=== PATIENT | female | born 1935 | race Caucasian/White ===

== ENCOUNTER 2017-04-19 15:59 | Inpatient (IN) | payer OTHER ==
[~2017-04-19] VITALS: Ht 152.4 cm; Wt 52.1 kg
[~2017-04-19 15:59] MED LIST: AMLO-110 PO; ASPI81TA25 PO; CHOL1000 PO; CLON0.1D5 TD; ESCI1TAB9 PO; FLUT50SP14 NAE; LEVO25TA PO; LORA10TA5 PO; LORA1TAB13 PO; MULT-411 PO; PANT1TAB48 PO
[2017-04-19] MEDS ORDERED: ONDANSETRON INJ 2 MG/ML 2 ML VIAL IV STA (16:28)
[2017-04-19] MEDS ORDERED: SODIUM CHLORIDE 0.9% 1000ML 500 ML IV STA (16:28)
[2017-04-19] MEDS ORDERED: SODIUM CHLORIDE 0.9% 1000ML 1,000 ML IV STA (16:28)
[2017-04-19] MEDS ORDERED: MoRPHine SULFATE 4 MG/ML 1 ML CARP\\VIAL IV PRN (16:30)
[2017-04-19 16:39] LABS: BASO % 0.4 %; BASO ABS # 0.04 K/uL (0-0.2); COMPLETE YES; EOS % 0.5 %; HEMATOCRIT 43.1 % (37-47); IG% 0.2 %; LYMPH ABS # 1.51 K/uL (1.2-3.4); MEAN CELL VOLUME 94.1 fL (80-100); MEAN CORPUSCULAR HEMOGLOBIN 33.2 pg (25-34); MEAN CORPUSCULAR HGB CONC 35.3 g/dl (32-36); MEAN PLATELET VOLUME 9.1 fL (7.4-10.4); MONO % 7.4 %; NEUT % 75.5 %; PLATELET COUNT 255 K/uL (130-400); RED BLOOD COUNT 4.58 M/uL (4.2-5.4); WHITE BLOOD COUNT 9.43 K/uL (4.8-10.8)
[2017-04-19] MEDS ORDERED: ONDA4TAB46 PO (16:47)
[2017-04-19] MEDS ORDERED: ATV/1 PO (16:47)
[2017-04-19] MEDS ORDERED: CHOL20007 PO (16:47)
[2017-04-19] MEDS ORDERED: POTA99TA PO (16:47)
[2017-04-19] MEDS ORDERED: NITR-5 PO (16:47)
[2017-04-19] MEDS ORDERED: ASPI81TA28 PO (16:47)
[2017-04-19] MEDS ORDERED: MULT-1016 PO (16:47)
[2017-04-19] MEDS ORDERED: LACT1CAP6 PO (16:47)
[2017-04-19] MEDS ORDERED: FLUT0.15 NAE (16:47)
[2017-04-19] MEDS ORDERED: DIPH1TAB PO (16:47)
[2017-04-19] MEDS ORDERED: MoRPHine SULFATE 2 MG/ML CARP ONE (16:48)
--- NOTE | 2017-04-19 16:51 | DIAGNOSTIC IMAGING REPORT ---
CHEST ONE VIEW PORTABLE CLINICAL HISTORY: Abdominal pain COMPARISON STUDY: 08/26/2013 FINDINGS: The cardiac and mediastinal contours remain stable. There is no failure. There is no focal pulmonary consolidation. There are multiple bilateral pulmonary nodules, relatively similar to the preceding study.[ No pleural effusions are visualized. There is no free intraperitoneal air. IMPRESSION: 1. Multiple bilateral pulmonary nodules, relatively similar to the preceding study 2. No evidence of acute parenchymal consolidation 3. No evidence of free intraperitoneal air Electronically signed by: Elder Moctezuma M.D. 04/19/2017 4:50 PM Dictated Date/Time: 04/19/2017 4:48 PM
--- NOTE | 2017-04-19 16:59 | EMERGENCY ROOM VISIT NOTE ---
History Report prepared by Heriberto: Chelsi Ocampo Under the Supervision of: Dr. Deepak Abdul M.D. First contact with patient: 16:19 Chief Complaint: ABDOMINAL PAIN Stated Complaint: SICK STOMACH,BACK PAIN,THROWING UP History of Present Illness The patient is a 82 year old female who presents to the Emergency Room with complaints of persistent nausea starting about 2 weeks ago. She also reports vomiting. She was evaluated at [facility] about a week ago. 6 days ago, she was diagnosed with a kidney infection based on urinalysis. She denies any history of frequent kidney infections or kidney failure. She has a history of frequent urinary tract infections. She was initially placed on Cipro but was switched over to Macrobid due to persistent nausea. As per daughter, the patient has been losing weight over the past 2 weeks. The patient has a colostomy bag in place for a history of irritable bowel syndrome and bowel incontinence. She has been having mucous from her rectum. She also complains of lower back pain occurring since a fall about 2-3 weeks ago. She denies fevers, chills, abdominal pain, abdominal distention, urinary symptoms, or any other complaints. Source of History: patient Onset: about 2 weeks ago Position: other (global) Quality: other (nausea) Timing: other (persistent) Associated Symptoms: + vomiting, + back pain, No fevers, No chills, No abdominal pain, No urinary symptoms Review of Systems See HPI for pertinent positives & negatives. A total of 10 systems reviewed and were otherwise negative. Past Medical & Surgical Medical Problems: (1) Anorexia (2) Anxiety (3) Depression (4) GERD (gastroesophageal reflux disease) (5) HTN (hypertension) (6) Hypothyroid (7) Intractable nausea and vomiting (8) Pulmonary hypertension Family History Depression Hypertension Social History Smoking Status: Never Smoker Alcohol Use: none Drug Use: none Marital Status: single Housing Status: lives with family Occupation Status: retired Current/Historical Medications Scheduled Amlodipine (Norvasc), 5 MG PO DAILY Aspirin (Aspirin Ec), 81 MG PO QAM Cholecalciferol (Vitamin D3), 2,000 UNITS PO QAM Diphenhydramine Hcl (Benadryl Allergy), 25 MG PO HS Fluticasone Propionate (Nasal) (Flonase Allergy Relief), 1 SPRAY SHAMEKA BID Lactobacillus (Probiotic), 1 CAP PO QAM Levothyroxine Sodium (Synthroid), 25 MCG PO DAILY Lorazepam (Ativan), 1 MG PO TID Multiple Vitamins W/ Minerals (Multivitamin Women 50+), 1 TAB PO QAM Nitrofurantoin Monohyd Macrocr (Macrobid), 100 MG PO Q12 Potassium (Potassium), 99 MG PO QAM Scheduled PRN Ondansetron Hcl (Zofran), Unknown Dose PO DIRECTED PRN for Nausea Allergies Coded Allergies: Verapamil (Verified Allergy, Severe, "THINGS STARTED TO SHUT DOWN-HEART, B /P TILL GOT TO ER"., 04/19/17) Aspirin (Verified Adverse Reaction, Unknown, GI UPSET, TAKES BABY ASA WITHOUT PROB, 04/19/17) Physical Exam Vital Signs Date Time Temp Pulse Resp B/P (MAP) Pulse Ox O2 Delivery O2 Flow Rate FiO2 04/19/17 19:04 155/102 04/19/17 18:39 124 13 04/19/17 18:34 124 24 04/19/17 18:06 83 16 174/88 97 Room Air 04/19/17 18:04 84 23 99 04/19/17 18:01 174/88 04/19/17 17:56 170/87 04/19/17 17:05 81 04/19/17 17:04 81 17 04/19/17 16:59 86 13 04/19/17 16:29 88 15 04/19/17 16:08 37.1 98 20 159/103 97 Room Air Physical Exam GENERAL: Patient is in no acute distress. HEENT: No acute trauma, normocephalic atraumatic, mucous membranes moist, no nasal congestion, no scleral icterus. NECK: No stridor, no adenopathy, no meningismus, trachea is midline. LUNGS: Clear to auscultation bilaterally, no wheeze, no rhonchi, breath sounds equal. HEART: Without murmurs gallops or rubs, regular rate and rhythm. ABDOMEN: Soft, nontender, bowel sounds positive, no hernias, no peritonitis. Colostomy present. BACK: No focal lumbar tenderness, no flank discomfort with percussion. EXTREMITIES: No cyanosis or edema, full range of motion of all the joints without pain or difficulty, no signs for acute trauma. NEUROLOGIC: Oriented x 3, no acute motor or sensory deficits, no focal weakness. SKIN: No rash, no jaundice, no diaphoresis. Medical Decision & Procedures ER Provider Diagnostic Interpretation: X-ray results as stated below per interpretation by me and the radiologist: CHEST ONE VIEW PORTABLE CLINICAL HISTORY: Abdominal pain COMPARISON STUDY: 08/26/2013 FINDINGS: The cardiac and mediastinal contours remain stable. There is no failure. There is no focal pulmonary consolidation. There are multiple bilateral pulmonary nodules, relatively similar to the preceding study.[ No pleural effusions are visualized. There is no free intraperitoneal air. IMPRESSION: 1. Multiple bilateral pulmonary nodules, relatively similar to the preceding study 2. No evidence of acute parenchymal consolidation 3. No evidence of free intraperitoneal air Electronically signed by: Elder Moctezuma M.D. 04/19/2017 4:50 PM Dictated Date/Time: 04/19/2017 4:[address] results as stated below per my review and radiologist interpretation: CT ABD/PELVIS IV CONTRAST ONLY CLINICAL HISTORY: Abdominal pain, nausea, vomiting. COMPARISON STUDY: Chest CT dated 08/26/2013 TECHNIQUE: Following the IV administration of 94 mL of Optiray-320, CT scan of the abdomen and pelvis was performed from the lung bases to the proximal femurs. Images are reviewed in the axial, sagittal, and coronal planes. IV contrast was administered without complication. CT DOSE: 244.79 mGy.cm FINDINGS: Lower chest: Images the lung bases reveal multiple bilateral pulmonary nodules. These were present on the prior 2012 study. Liver: There is mild central hepatic ductal dilatation. There is mild dilatation the common bile duct which measures 8 mm. The mild ductal dilatation was present on the prior chest CT for the August 2013 Gallbladder: Surgically absent Spleen: Normal in size and attenuation. Pancreas: Unremarkable. Adrenal glands: Unremarkable. Kidneys: There is symmetric renal cortical enhancement. The kidneys are normal in size without hydronephrosis. Bowel: There is a hiatal hernia. There is a left lower quadrant colostomy. There are no transition zones indicate bowel obstruction. By history the appendix is surgically absent. The patient appears be status post a partial left colectomy with a blind-ending sigmoid colon. The distal ileal loops appears somewhat matted. Peritoneum: There is no intraperitoneal free air or abdominal ascites. Vasculature: The abdominal aorta is normal in course and caliber. Adenopathy: None. Pelvic viscera: The uterus appears surgically absent. There is a droplet of air within the bladder, possibly iatrogenic Skeletal structures: No destructive osseous lesions are seen. IMPRESSION: 1. Multiple lower lobe pulmonary nodules, findings similar to a prior 2013 study 2. Surgically absent gallbladder. Mild intra and extrahepatic biliary ductal dilatation. This may be related to a prior cholecystectomy. 3. No evidence of bowel obstruction. No evidence of free air 4. Left lower quadrant colostomy 5. Somewhat matted bowel loops within the ileocecal region 6. Droplet of air within the bladder, possibly iatrogenic 7. Hiatal hernia Electronically signed by: Elder Moctezuma M.D. 04/19/2017 5:49 PM Dictated Date/Time: 04/19/2017 5:40 PM Laboratory Results 04/19/17 16:25 Red Blood Count 4.58, Mean Corpuscular Volume 94.1, Mean Corpuscular Hemoglobin 33.2, Mean Corpuscular Hemoglobin Concent 35.3, Mean Platelet Volume 9.1, Neutrophils (%) (Auto) 75.5, Lymphocytes (%) (Auto) 16.0, Monocytes (%) (Auto) 7.4, Eosinophils (%) (Auto) 0.5, Basophils (%) (Auto) 0.4, Neutrophils # (Auto) 7.11, Lymphocytes # (Auto) 1.51, Monocytes # (Auto) 0.70, Eosinophils # (Auto) 0.05, Basophils # (Auto) 0.04 04/19/17 16:25 Test 04/19/17 16:25 04/19/17 17:25 04/19/17 19:04 White Blood Count 9.43 K/uL (4.8-10.8) Red Blood Count 4.58 M/uL (4.2-5.4) Hemoglobin 15.2 g/dL (12.0-16.0) Hematocrit 43.1 % (37-47) Mean Corpuscular Volume 94.1 fL (80-100) Mean Corpuscular Hemoglobin 33.2 pg (25-34) Mean Corpuscular Hemoglobin Concent 35.3 g/dl (32-36) Platelet Count 255 K/uL (130-400) Mean Platelet Volume 9.1 fL (7.4-10.4) Neutrophils (%) (Auto) 75.5 % Lymphocytes (%) (Auto) 16.0 % Monocytes (%) (Auto) 7.4 % Eosinophils (%) (Auto) 0.5 % Basophils (%) (Auto) 0.4 % Neutrophils # (Auto) 7.11 K/uL (1.4-6.5) Lymphocytes # (Auto) 1.51 K/uL (1.2-3.4) Monocytes # (Auto) 0.70 K/uL (0.11-0.59) Eosinophils # (Auto) 0.05 K/uL (0-0.5) Basophils # (Auto) 0.04 K/uL (0-0.2) RDW Standard Deviation 42.6 fL (36.4-46.3) RDW Coefficient of Variation 12.5 % (11.5-14.5) Immature Granulocyte % (Auto) 0.2 % Immature Granulocyte # (Auto) 0.02 K/uL (0.00-0.02) Anion Gap 10.0 mmol/L (3-11) Est Creatinine Clear Calc Drug Dose 33.6 ml/min Estimated GFR () 64.7 Estimated GFR (Non- 55.9 BUN/Creatinine Ratio 7.7 (10-20) Calcium Level 9.4 mg/dl (8.5-10.1) Total Bilirubin 0.4 mg/dl (0.2-1) Aspartate Amino Transf (AST/SGOT) 35 U/L (15-37) Alanine Aminotransferase (ALT/SGPT) 42 U/L (12-78) Alkaline Phosphatase 100 U/L (45-117) Troponin I < 0.015 ng/ml (0-0.045) Total Protein 8.3 gm/dl (6.4-8.2) Albumin 4.1 gm/dl (3.4-5.0) Globulin 4.2 gm/dl (2.5-4.0) Albumin/Globulin Ratio 1.0 (0.9-2) Lipase 138 U/L (73-393) Urine Color DK YELLOW Urine Appearance CLEAR (CLEAR) Urine pH 6.5 (4.5-7.5) Urine Specific [place] 1.014 (1.000-1.030) Urine Protein NEG (NEG) Urine Glucose (UA) NEG (NEG) Urine Ketones 1+ (NEG) Urine Occult Blood NEG (NEG) Urine Nitrite NEG (NEG) Urine Bilirubin NEG (NEG) Urine Urobilinogen NEG (NEG) Urine Leukocyte Esterase NEG (NEG) Prothrombin Time 10.9 SECONDS (9.0-12.0) Prothromb Time International Ratio 1.0 (0.9-1.1) Activated Partial Thromboplast Time 22.7 SECONDS (21.0-31.0) Partial Thromboplastin Ratio 0.9 Lactic Acid Level 1.6 mmol/L (0.4-2.0) Laboratory results reviewed by me. Medications Administered Medications (Trade) Dose Ordered Sig/Ana Route Start Time Stop Time Status Last Admin Dose Admin Sodium Chloride 500 ml @ 999 mls/hr Q31M STAT IV 04/19/17 16:28 04/19/17 16:58 DC 04/19/17 16:58 999 MLS/HR Ondansetron HCl (Zofran Inj) 4 mg NOW STAT IV 04/19/17 16:28 04/19/17 16:32 DC 04/19/17 16:58 4 MG Sodium Chloride 1,000 ml @ 200 mls/hr Q5H STAT IV 04/19/17 16:28 04/19/17 21:30 DC 04/19/17 16:58 200 MLS/HR Morphine Sulfate (MoRPHine SULFATE INJ) 2 mg STK-MED ONCE .ROUTE 04/19/17 16:48 04/19/17 16:49 DC 04/19/17 16:59 2 MG Ceftriaxone Sodium (Rocephin Inj) 1 gm NOW STAT IV 04/19/17 18:34 04/19/17 18:36 DC 04/19/17 19:01 1 GM ECG Indication: nausea Rate (beats per minute): 91 Rhythm: normal sinus Findings: ST depression (interior, anterior, and lateral leads), other ( Significant baseline artifact) Comparison ECG Date: August 27, 2013 Change: ST changes are slightly more pronounced today when compared to August 27, 2013. ED Course 1619: The patient was evaluated in room A02. A complete history and physical exam was performed. 1628: Sodium Chloride 1000 ml @ 200 mls/hr IV, Zofran Inj 4 mg IV, Sodium Chloride 500 ml @ 999 mls/hr IV 1630: Morphine Sulfate 2 mg IV 1834: Rocephin Inj 1 gm IV 1845: Upon reexamination the patient is resting comfortably. I discussed results and treatment plan with the patient. She verbalizes agreement and understanding. The patient will be evaluated for further management. 1936: I discussed the patient's case with Dr. Cleopatra Delong, resident with [facility]. Medical Decision Medication Reconciliation: I attest that I have personally reviewed the patient' s current medication list. Blood Pressure Screening: Patient was found to have an elevated blood pressure and was referred to their primary doctor for recheck and further treatment. Differential diagnosis includes but is not limited to bowel obstruction, failed outpatient treatment, pyelonephritis, dehydration, electrolyte imbalance, anemia , pancreatitis, cardiac ischemia. There is no leukocytosis or concerning anemia. No significant electrolyte abnormality, kidney failure, hepatitis or pancreatitis. Chest film does not show pneumonia, chronic nodules were seen. Abdominal and pelvis CT shows no obvious bowel obstruction, there was no evidence for hydronephrosis. EKG shows a normal sinus rhythm, no acute AK. There was no dysrhythmia. Cardiac enzyme testing times one is not consistent with acute cardiac injury. Lactic acid level was not elevated making sepsis and bowel ischemia less likely. Urinalysis does not show evidence for infection-the patient has been on antibiotics already though. The patient received IV saline, patient was given IV Zofran and IV morphine. The patient received IV ceftriaxone. The patient presents with persistent nausea and vomiting. She has been seen by the family doctor, she has been seen by an outside ER. Despite antibiotics, despite treatment, she is doing poorly. Admission/observation is warranted. She may have a residual pyelonephritis just not completely treated with antibiotics. I do not think she can be discharged home. I did speak with the on-call hospitalist, I talked with case management. Admission/observation I believe is warranted. Consults Time Called: 1840 Consulting Physician: Dr. Cleopatra Delong, resident with [facility] Returned Call: 1936 I discussed the patient's case with Dr. Cleopatra Delong, resident with [facility]. Impression Primary Impression: Failure of outpatient treatment Additional Impressions: Vomiting Flank pain Scribe Attestation The scribe's documentation has been prepared under my direction and personally reviewed by me in its entirety. I confirm that the note above accurately reflects all work, treatment, procedures, and medical decision making performed by me. Departure Information Dispostion Being Evaluated By Hospitalist Referrals Twila Denton M.D. (PCP) Patient Instructions My [facility] Problem Qualifiers
[2017-04-19] MEDS ORDERED: OPTIRAY 320 IV PRN (17:00)
[2017-04-19 17:02] LABS: ALT/SGPT 42 U/L (12-78); BLOOD UREA NITROGEN 7 mg/dl (7-18); BUN/CREATININE RATIO 7.7 (10-20); CALCIUM 9.4 mg/dl (8.5-10.1); CARBON DIOXIDE 25 mmol/L (21-32); CHLORIDE 107 mmol/L (98-107); CREATININE 0.96 mg/dl (0.60-1.20); GLUCOSE 114 mg/dl (70-99); POTASSIUM 3.1 mmol/L (3.5-5.1); SODIUM 142 mmol/L (136-145)
[2017-04-19 17:07] LABS: ALKALINE PHOSPHATASE 100 U/L (45-117); AST/SGOT 35 U/L (15-37)
[2017-04-19 17:36] LABS: URINE APPEARANCE CLEAR (CLEAR); URINE BILIRUBIN NEG (NEG); URINE COLOR DK YELLOW; URINE NITRITE NEG (NEG); URINE PH 6.5 (4.5-7.5); URINE SPECIFIC GRAVITY 1.014 (1.000-1.030); UROBILINOGEN NEG (NEG); ZZURINE CULT IF INDIC CATH NO
[2017-04-19 17:44] LABS: MANUAL MICROSCOPIC REQUIRED? NO; REVIEW REQ? NO
--- NOTE | 2017-04-19 17:50 | DIAGNOSTIC IMAGING REPORT ---
CT ABD/PELVIS IV CONTRAST ONLY CLINICAL HISTORY: Abdominal pain, nausea, vomiting. COMPARISON STUDY: Chest CT dated 08/26/2013 TECHNIQUE: Following the IV administration of 94 mL of Optiray-320, CT scan of the abdomen and pelvis was performed from the lung bases to the proximal femurs. Images are reviewed in the axial, sagittal, and coronal planes. IV contrast was administered without complication. CT DOSE: 244.79 mGy.cm FINDINGS: Lower chest: Images the lung bases reveal multiple bilateral pulmonary nodules. These were present on the prior 2012 study. Liver: There is mild central hepatic ductal dilatation. There is mild dilatation the common bile duct which measures 8 mm. The mild ductal dilatation was present on the prior chest CT for the August 2013 Gallbladder: Surgically absent Spleen: Normal in size and attenuation. Pancreas: Unremarkable. Adrenal glands: Unremarkable. Kidneys: There is symmetric renal cortical enhancement. The kidneys are normal in size without hydronephrosis. Bowel: There is a hiatal hernia. There is a left lower quadrant colostomy. There are no transition zones indicate bowel obstruction. By history the appendix is surgically absent. The patient appears be status post a partial left colectomy with a blind-ending sigmoid colon. The distal ileal loops appears somewhat matted. Peritoneum: There is no intraperitoneal free air or abdominal ascites. Vasculature: The abdominal aorta is normal in course and caliber. Adenopathy: None. Pelvic viscera: The uterus appears surgically absent. There is a droplet of air within the bladder, possibly iatrogenic Skeletal structures: No destructive osseous lesions are seen. IMPRESSION: 1. Multiple lower lobe pulmonary nodules, findings similar to a prior 2013 study 2. Surgically absent gallbladder. Mild intra and extrahepatic biliary ductal dilatation. This may be related to a prior cholecystectomy. 3. No evidence of bowel obstruction. No evidence of free air 4. Left lower quadrant colostomy 5. Somewhat matted bowel loops within the ileocecal region 6. Droplet of air within the bladder, possibly iatrogenic 7. Hiatal hernia Electronically signed by: Elder Moctezuma M.D. 04/19/2017 5:49 PM Dictated Date/Time: 04/19/2017 5:40 PM
[2017-04-19] MEDS ORDERED: CEFTRIAXONE SOD INJ 1 GM ADDVIAL IV STA (18:34)
[2017-04-19] MEDS ORDERED: METOCLOPRAMIDE HCL INJ 5 MG/ML 2 ML VIAL IV STA (19:05)
[2017-04-19] MEDS ORDERED: ALUMINUM/MAGNESIUM/SIMETH (MAALOX MAX) 30 ML UDC PO PRN (19:15)
[2017-04-19] MEDS ORDERED: METOCLOPRAMIDE HCL INJ 5 MG/ML 2 ML VIAL IV PRN (19:15)
[2017-04-19] MEDS ORDERED: MAGNESIUM HYDROXIDE SUSP 30 ML UDC PO PRN (19:15)
[2017-04-19 19:24] LABS: PARTIAL THROMBOPLASTIN RATIO 0.9; PROTHROMBIN TIME (PATIENT) 10.9 SECONDS (9.0-12.0)
--- NOTE | 2017-04-19 19:25 | History and Physical ---
History & Physical Date & Time of Service: Apr 19, 2017 at 19:12 Chief Complaint: Sick Stomach,Back Pain,Throwing Up Primary Care Physician: Twila Denton M.D. History of Present Illness Source: patient, family Mrs Rader is an 82 yo F with chronic back pain, chronic anxiety (on Ativan 1mg TID x 20 years), s/p colectomy for ?IBS who presents with 2 weeks of severe nausea, vomiting, and inability to keep any food down. She reports it started on its own two weeks ago, denying any new changes to her medications, diet, or other lifestyle measures. She has had stool output from her stoma, but reports it is more often dark black than normal colored. She has a lot of productive mucus draining, and is unsure if it is reflux or from her sinuses. She denies fevers, chest pain, or shortness of breath. She went to [facility] twice, and reports she was given Zofran to take at home but it did not do anything. She reports she tried Phenergan as well without effect. Upon eating, she ends up vomiting, but denies any blood in her vomit. She currently feels nauseated without improvement from Zofran again. She overall feels fatigued, has lost weight, and is more wobbly on her feet. She did have a fall 2-3 weeks ago, without any injury, but this has exacerbated her back pain. She was apparently diagnosed with a UTI 6 days ago, was started on Cipro then switched to Macrobid for persistent nausea. She denies any urinary symptoms at this time. Past Medical/Surgical History Medical Problems: (1) Anxiety Status: Chronic (2) Depression Status: Chronic (3) GERD (gastroesophageal reflux disease) Status: Chronic (4) HTN (hypertension) Status: Chronic (5) Hypothyroid Status: Chronic (6) Pulmonary hypertension Status: Chronic PSHx: Colectomy Hysterectomy Cholecystectomy Family History Depression Hypertension Social History Smoking Status: Never Smoker Drug Use: none Marital Status: Housing status: lives with family Occupational Status: retired Immunizations History of Influenza Vaccine: Unknown Influenza Vaccine Date: Jul 25, 2013 History of Tetanus Vaccine?: Unknown History of Pneumococcal: Unknown Pneumococcal Date: Aug 26, 2012 History of Hepatitis B Vaccine: Unknown Multi-Drug Resistant Organisms History of MDRO: No Allergies Coded Allergies: Verapamil (Verified Allergy, Severe, "THINGS STARTED TO SHUT DOWN-HEART, B /P TILL GOT TO ER"., 04/19/17) Aspirin (Verified Adverse Reaction, Unknown, GI UPSET, TAKES BABY ASA WITHOUT PROB, 04/19/17) Home Medications Scheduled Amlodipine (Norvasc), 5 MG PO DAILY Aspirin (Aspirin Ec), 81 MG PO QAM Cholecalciferol (Vitamin D3), 2,000 UNITS PO QAM Diphenhydramine Hcl (Benadryl Allergy), 25 MG PO HS Fluticasone Propionate (Nasal) (Flonase Allergy Relief), 1 SPRAY [place] BID Lactobacillus (Probiotic), 1 CAP PO QAM Levothyroxine Sodium (Synthroid), 25 MCG PO DAILY Lorazepam (Ativan), 1 MG PO TID Multiple Vitamins W/ Minerals (Multivitamin Women 50+), 1 TAB PO QAM Nitrofurantoin Monohyd Macrocr (Macrobid), 100 MG PO Q12 Potassium (Potassium), 99 MG PO QAM Scheduled PRN Ondansetron Hcl (Zofran), Unknown Dose PO DIRECTED PRN for Nausea Review of Systems See HPI for pertinent positives & negatives. A total of 10 systems reviewed and were otherwise negative. Physical Exam Vital Signs Date Time Temp Pulse Resp B/P (MAP) Pulse Ox O2 Delivery O2 Flow Rate FiO2 04/19/17 18:34 124 24 04/19/17 18:06 83 16 174/88 97 Room Air 04/19/17 18:04 84 23 99 04/19/17 18:01 174/88 04/19/17 17:56 170/87 04/19/17 17:05 81 04/19/17 17:04 81 17 04/19/17 16:59 86 13 04/19/17 16:29 88 15 04/19/17 16:08 37.1 98 20 159/103 97 Room Air General Appearance: WD/WN, + mild distress, + thin Head: normocephalic, atraumatic Eyes: normal inspection ENT: hearing grossly normal Neck: supple, no JVD Respiratory/Chest: lungs clear, normal breath sounds, no respiratory distress Cardiovascular: regular rate, rhythm, no murmur, normal peripheral pulses Abdomen/GI: soft, + tenderness (mild tenderness), + pertinent finding (stoma looks healthy, with light stool in bag, no evidence of melena at this time.) Back: no CVA tenderness, no muscle spasm Extremities/Musculoskelatal: no calf tenderness, no pedal edema Neurologic/Psych: alert, normal mood/affect, oriented x 3 Skin: no rash Diagnostics Laboratory Results Results Past 24 Hours Test 04/19/17 16:25 04/19/17 17:25 04/19/17 19:04 Range/Units White Blood Count 9.43 4.8-10.8 K/uL Red Blood Count 4.58 4.2-5.4 M/uL Hemoglobin 15.2 12.0-16.0 g/dL Hematocrit 43.1 37-47 % Mean Corpuscular Volume 94.1 80-100 fL Mean Corpuscular Hemoglobin 33.2 25-34 pg Mean Corpuscular Hemoglobin Concent 35.3 32-36 g/dl Platelet Count 255 130-400 K/uL Mean Platelet Volume 9.1 7.4-10.4 fL Neutrophils (%) (Auto) 75.5 % Lymphocytes (%) (Auto) 16.0 % Monocytes (%) (Auto) 7.4 % Eosinophils (%) (Auto) 0.5 % Basophils (%) (Auto) 0.4 % Neutrophils # (Auto) 7.11 1.4-6.5 K/uL Lymphocytes # (Auto) 1.51 1.2-3.4 K/uL Monocytes # (Auto) 0.70 0.11-0.59 K/uL Eosinophils # (Auto) 0.05 0-0.5 K/uL Basophils # (Auto) 0.04 0-0.2 K/uL RDW Standard Deviation 42.6 36.4-46.3 fL RDW Coefficient of Variation 12.5 11.5-14.5 % Immature Granulocyte % (Auto) 0.2 % Immature Granulocyte # (Auto) 0.02 0.00-0.02 K/uL Sodium Level 142 136-145 mmol/L Potassium Level 3.1 3.5-5.1 mmol/L Chloride Level 107 98-107 mmol/L Carbon Dioxide Level 25 21-32 mmol/L Anion Gap 10.0 3-11 mmol/L Blood Urea Nitrogen 7 7-18 mg/dl Creatinine 0.96 0.60-1.20 mg/dl Est Creatinine Clear Calc Drug Dose 33.6 ml/min Estimated GFR () 64.7 Estimated GFR (Non- 55.9 BUN/Creatinine Ratio 7.7 10-20 Random Glucose 114 70-99 mg/dl Calcium Level 9.4 8.5-10.1 mg/dl Total Bilirubin 0.4 0.2-1 mg/dl Aspartate Amino Transf (AST/SGOT) 35 15-37 U/L Alanine Aminotransferase (ALT/SGPT) 42 12-78 U/L Alkaline Phosphatase 100 45-117 U/L Troponin I < 0.015 0-0.045 ng/ml Total Protein 8.3 6.4-8.2 gm/dl Albumin 4.1 3.4-5.0 gm/dl Globulin 4.2 2.5-4.0 gm/dl Albumin/Globulin Ratio 1.0 0.9-2 Lipase 138 73-393 U/L Urine Color DK YELLOW Urine Appearance CLEAR CLEAR Urine pH 6.5 4.5-7.5 Urine Specific [place] 1.014 1.000-1.030 Urine Protein NEG NEG Urine Glucose (UA) NEG NEG Urine Ketones 1+ NEG Urine Occult Blood NEG NEG Urine Nitrite NEG NEG Urine Bilirubin NEG NEG Urine Urobilinogen NEG NEG Urine Leukocyte Esterase NEG NEG Diagnostic Radiology CT ABD/PELVIS: IMPRESSION: 1. Multiple lower lobe pulmonary nodules, findings similar to a prior 2013 study 2. Surgically absent gallbladder. Mild intra and extrahepatic biliary ductal dilatation. This may be related to a prior cholecystectomy. 3. No evidence of bowel obstruction. No evidence of free air 4. Left lower quadrant colostomy 5. Somewhat matted bowel loops within the ileocecal region 6. Droplet of air within the bladder, possibly iatrogenic 7. Hiatal hernia CXR: IMPRESSION: 1. Multiple bilateral pulmonary nodules, relatively similar to the preceding study 2. No evidence of acute parenchymal consolidation 3. No evidence of free intraperitoneal air Impression Assessment and Plan 82 yo F with persistent intractable nausea and vomiting despite home therapy, resulting in anorexia and deconditioning. Differential - medication related, reflux, vestibular, ulcer, gastroenteritis. Nausea / vomiting - Continue Zofran, though we will monitor her QTc interval - Will add Reglan and provide a dose now - Full liquid diet for now, if able to then will advance as tolerated - Will add PPI / Zantac Dehydration - IV fluids Deconditioning - PT/OT assessments Hypokalemia - Will replete in fluids Recent dark stool / epigastric pain - Fecal occult stool - Will monitor, may need an EGD but no indication at this point. Hx UTI - Urinalysis here negative, received over 5 days of Abx, will await culture Chronic anxiety - Continue Ativan 1mg TID, pt reports she takes this daily x 20 years Back pain - Heat / ice packs CODE STATUS: Full DISPO: Med/Surg VTE: SCDs, Lovenox Resident Physician Supervision Note: I was present with Dr. Delong during the history and exam. I discussed the case with the resident and agree with the findings and plan as documented in the note. Any exceptions or clarifications are listed here: 82 y/o F Hx chronic fecal incontinence leading to colostomy placement - presenting with 2 weeks of N/V, discomfort and weight loss - also describing change/darkening in color of her colostomy outpu. She has had multiple imaging studies which have not yielded a diagnosis. OE AAO x 3 S1,2 R CTAB NT, ND - colostomy site clean - functioning No CCE P: IVF, clears, GI consult - symptomatic Tx - we will place her on scheduled Reglan as this has not been tried and issues may possibly be related to gastroparesis. Documented By: Rudi Ny Level of Care Med/Surg Resuscitation Status FULL RESUSCITATION VTE Prophylaxis VTE Risk Assessment Done? Y/N: Yes Risk Level: Moderate Resident Tracking Resident Involvement: Resident Care Provided Care Provided: Adult Hospital Medicine
[2017-04-19] MEDS ORDERED: METOCLOPRAMIDE HCL INJ 5 MG/ML 2 ML VIAL ONE (19:31)
[2017-04-19] MEDS ORDERED: POLYETHYLENE (MIRALAX) 17 GM PACK PO PRN (20:00)
[2017-04-19 21:02] VITALS: BP 165/99; PULSE 89; TEMP 37.1; O2SAT 95; Ht 152.4 cm; Wt 52.1 kg
[2017-04-19 21:09] VITALS: BP 174/92; PULSE 95; TEMP 37; O2SAT 97
[2017-04-19] MEDS: LORAZEPAM 1 MG TAB PO SCH (22:00)
[2017-04-19] MEDS: FLUTICASONE PROPIONATE NA SPR 16 GM BTL NAE SCH (22:00)
[2017-04-19] MEDS: RANITIDINE HCL 150 MG TAB PO SCH (22:01)
[2017-04-19] MEDS: NSS + 20MEQ KCL 1000ML 1,000 ML IV SCH (22:01)
[2017-04-19] MEDS: PANTOprazole SOD 40 MG TAB PO SCH (22:01)
[2017-04-19] MEDS: ONDANSETRON INJ 2 MG/ML 2 ML VIAL IV PRN (23:03)
[2017-04-19 23:17] VITALS: BP 137/68; PULSE 117; TEMP 36.9; O2SAT 95
[2017-04-20] MEDS: METOCLOPRAMIDE HCL INJ 5 MG/ML 2 ML VIAL IV. SCH ×4 (03:54→23:28)
[2017-04-20] MEDS: LEVOTHYROXINE 25 MCG TAB PO SCH (05:55)
[2017-04-20 07:05] VITALS: BP 148/82; PULSE 85; TEMP 36.8; O2SAT 96
[2017-04-20 07:27] LABS: BUN/CREATININE RATIO 6.7 (10-20); CALCIUM 8.6 mg/dl (8.5-10.1); CREATININE 0.82 mg/dl (0.60-1.20); POTASSIUM 2.9 mmol/L (3.5-5.1)
[2017-04-20] MEDS: AMLODIPINE BESYLATE 5 MG TAB PO SCH (08:04)
[2017-04-20] MEDS: NSS + 20MEQ KCL 1000ML 1,000 ML IV SCH ×2 (08:04→17:06)
[2017-04-20] MEDS: FLUTICASONE PROPIONATE NA SPR 16 GM BTL NAE SCH ×2 (08:04→20:06)
[2017-04-20] MEDS: RANITIDINE HCL 150 MG TAB PO SCH ×2 (08:04→20:06)
[2017-04-20] MEDS: ONDANSETRON INJ 2 MG/ML 2 ML VIAL IV PRN (08:15)
[2017-04-20] MEDS: ENOXAPARIN 30 MG/0.3 ML SYR SQ SCH (08:20)
[2017-04-20] MEDS: LORAZEPAM 1 MG TAB PO SCH ×4 (08:23→21:15)
[2017-04-20] MEDS: CEROVITE ADV FORMULA TAB PO SCH (08:23)
[2017-04-20] MEDS: PANTOprazole SOD 40 MG TAB PO SCH (08:24)
[2017-04-20] MEDS ORDERED: ASPIRIN 81 MG ECTAB PO SCH (09:00)
[2017-04-20] MEDS ORDERED: PROMETHAZINE HCL INJ 12.5 MG in SODIUM CHLORIDE 0.9% 50ML 50 ML IV ONE ×2 (09:15→20:45)
[2017-04-20] MEDS: POTASSIUM CHLR 10 MEQ / WTR 10 MEQ in PREMIXED WATER 100 ML IV SCH ×4 (10:03→20:02)
[2017-04-20 11:37] VITALS: BP 147/83; PULSE 85; TEMP 36.8; O2SAT 98
--- NOTE | 2017-04-20 12:45 | Gastrointestinal Consultation ---
Gastrointestinal Consultation Date of Consultation: Apr 20, 2017 History of Present Illness Patient is a 82 year old female who presented wt c/o of nausea. She is a pleasant, but frustrated 82 yo f with hx of colectomy (unsure of extent )for what she said was fecal incontinence 9 yrs ago in [place] with left ostomy, who c/o 14 days of nausea. She feels extremely nauseous, no real vomiting, no diarrhea. She has not started any recent medications, some occasional headaches, but no double vision or fatigue. She was adm on at least on occasion to [place], and re-presented to ER there as well. Some mild weight loss, "dark low volume liquid in ostomy" but otherwise has been in normal state of health. No recent NSAIDs. No heartburn or abdominal pain. Past Medical/Surgical History Medical Problems: (1) Failure of outpatient treatment Status: Acute (2) Flank pain Status: Acute (3) Vomiting Status: Acute Family History Depression Hypertension Social History Smoking Status: Unknown if Ever Smoked Alcohol Use: none Drug Use: none Marital Status: Housing Status: lives with family Occupation Status: retired Allergies Coded Allergies: Verapamil (Verified Allergy, Severe, "THINGS STARTED TO SHUT DOWN-HEART, B /P TILL GOT TO ER"., 04/19/17) Aspirin (Verified Adverse Reaction, Unknown, GI UPSET, TAKES BABY ASA WITHOUT PROB, 04/19/17) Current Medications Home Meds and Scripts Medications Dose Route/Sig Max Daily Dose Days Date Category Zofran (Ondansetron HCl) Unknown Strength Tab Unknown Dose PO DIRECTED PRN 04/19/17 Reported Macrobid (Nitrofurantoin Macrocrystals) 100 Mg Cap 100 Mg PO Q12 04/19/17 Reported Benadryl Allergy (Diphenhydramine Hcl) 25 Mg Tab 25 Mg PO HS 04/19/17 Reported Probiotic (Lactobacillus) 1 Cap Cap 1 Cap PO QAM 04/19/17 Reported Potassium 99 Mg Tab 99 Mg PO QAM 04/19/17 Reported Multivitamin Women 50+ (Multiple Vitamins W/ Minerals) 1 Tab Tab 1 Tab PO QAM 04/19/17 Reported Ativan (Lorazepam) 1 Mg Tab 1 Mg PO TID 04/19/17 Reported Flonase Allergy Relief (Fluticasone Propionate (Nasal)) 50 Mcg/Act Spr 1 [place] SHAMEKA BID 04/19/17 Reported Vitamin D3 (Cholecalciferol) 2,000 Unit Tab 2,000 Units PO QAM 30 04/19/17 Reported Aspirin Ec (Aspirin) 81 Mg Tab 81 Mg PO QAM 04/19/17 Reported Synthroid (Levothyroxine Sodium) 25 Mcg Tab 25 Mcg PO DAILY 08/26/13 Reported Norvasc (Amlodipine Besylate) 5 Mg Tab 5 Mg PO DAILY 08/26/13 Reported Review of Systems Constitutional: No see HPI, No fever, No chills, No sweats, No weight loss, No weakness, No fatigue, No problem reported Eyes: No see HPI, No worsening of vision, No eye pain, No redness, No discharge , No diplopia, No problem reported ENT: No see HPI, No hearing loss, No unusual epistaxis, No nasal symptoms, No sore throat, No tinnitus, No dental problems, No trouble swallowing, No pain on swallowing, No problem reported Respiratory: No see HPI, No cough, No sputum, No wheezing, No shortness of breath, No dyspnea on exertion, No dyspnea at rest, No hemoptysis, No problem reported Cardiac: No see HPI, No chest pain, No orthopnea, No PND, No edema, No claudication, No palpitations, No problem reported Abdomen: + see HPI Musculoskeletal: No see HPI, No joint pain, No muscle pain, No swelling, No calf pain, No problem reported Female : No see HPI, No dysuria, No urinary frequency, No hematuria, No incontinence, No abnormal vaginal bleeding, No vaginal discharge, No problem reported Physical Exam Date Time Temp Pulse Resp B/P (MAP) Pulse Ox O2 Delivery O2 Flow Rate FiO2 04/20/17 11:37 36.8 85 18 147/83 (104) 98 Room Air 04/20/17 08:00 Room Air 04/20/17 07:05 36.8 85 20 148/82 (104) 96 Room Air 04/19/17 23:59 Room Air 04/19/17 23:17 36.9 117 18 137/68 (91) 95 Room Air 04/19/17 21:09 37.0 95 20 174/92 (119) 97 Room Air 04/19/17 21:02 37.1 89 14 165/99 95 Room Air 04/19/17 20:22 37.1 89 12 165/99 98 04/19/17 20:09 89 12 04/19/17 20:01 165/99 04/19/17 19:39 90 17 98 04/19/17 19:31 164/121 04/19/17 19:09 121 17 96 04/19/17 19:04 155/102 04/19/17 18:39 124 13 04/19/17 18:34 124 24 04/19/17 18:06 83 16 174/88 97 Room Air 04/19/17 18:04 84 23 99 04/19/17 18:01 174/88 04/19/17 17:56 170/87 04/19/17 17:05 81 04/19/17 17:04 81 17 04/19/17 16:59 86 13 04/19/17 16:29 88 15 04/19/17 16:08 37.1 98 20 159/103 97 Room Air General Appearance: WD/WN, no apparent distress Eyes: normal inspection ENT: normal ENT inspection Neck: supple, thyroid normal Respiratory/Chest: chest non-tender, lungs clear Cardiovascular: regular rate, rhythm, no edema Abdomen: normal bowel sounds, non tender, + pertinent finding (llq ostomy) Extremities: normal range of motion, normal inspection CT of abdomen Lower chest: Images the lung bases reveal multiple bilateral pulmonary nodules. These were present on the prior 2012 study. Liver: There is mild central hepatic ductal dilatation. There is mild dilatation the common bile duct which measures 8 mm. The mild ductal dilatation was present on the prior chest CT for the August 2013 Gallbladder: Surgically absent Spleen: Normal in size and attenuation. Pancreas: Unremarkable. Adrenal glands: Unremarkable. Kidneys: There is symmetric renal cortical enhancement. The kidneys are normal in size without hydronephrosis. Bowel: There is a hiatal hernia. There is a left lower quadrant colostomy. There are no transition zones indicate bowel obstruction. By history the appendix is surgically absent. The patient appears be status post a partial left colectomy with a blind-ending sigmoid colon. The distal ileal loops appears somewhat matted. Peritoneum: There is no intraperitoneal free air or abdominal ascites. Vasculature: The abdominal aorta is normal in course and caliber. Adenopathy: None. Pelvic viscera: The uterus appears surgically absent. There is a droplet of air within the bladder, possibly iatrogenic Skeletal structures: No destructive osseous lesions are seen. IMPRESSION: 1. Multiple lower lobe pulmonary nodules, findings similar to a prior 2013 study 2. Surgically absent gallbladder. Mild intra and extrahepatic biliary ductal dilatation. This may be related to a prior cholecystectomy. 3. No evidence of bowel obstruction. No evidence of free air 4. Left lower quadrant colostomy 5. Somewhat matted bowel loops within the ileocecal region 6. Droplet of air within the bladder, possibly iatrogenic 7. Hiatal hernia Laboratory Results Last 24 Hours Test 04/19/17 16:25 04/19/17 17:25 04/19/17 19:04 04/20/17 06:29 White Blood Count 9.43 K/uL Red Blood Count 4.58 M/uL Hemoglobin 15.2 g/dL Hematocrit 43.1 % Mean Corpuscular Volume 94.1 fL Mean Corpuscular Hemoglobin 33.2 pg Mean Corpuscular Hemoglobin Concent 35.3 g/dl Platelet Count 255 K/uL Mean Platelet Volume 9.1 fL Neutrophils (%) (Auto) 75.5 % Lymphocytes (%) (Auto) 16.0 % Monocytes (%) (Auto) 7.4 % Eosinophils (%) (Auto) 0.5 % Basophils (%) (Auto) 0.4 % Neutrophils # (Auto) 7.11 K/uL Lymphocytes # (Auto) 1.51 K/uL Monocytes # (Auto) 0.70 K/uL Eosinophils # (Auto) 0.05 K/uL Basophils # (Auto) 0.04 K/uL RDW Standard Deviation 42.6 fL RDW Coefficient of Variation 12.5 % Immature Granulocyte % (Auto) 0.2 % Immature Granulocyte # (Auto) 0.02 K/uL Sodium Level 142 mmol/L 141 mmol/L Potassium Level 3.1 mmol/L 2.9 mmol/L Chloride Level 107 mmol/L 107 mmol/L Carbon Dioxide Level 25 mmol/L 25 mmol/L Anion Gap 10.0 mmol/L 9.0 mmol/L Blood Urea Nitrogen 7 mg/dl 6 mg/dl Creatinine 0.96 mg/dl 0.82 mg/dl Est Creatinine Clear Calc Drug Dose 33.6 ml/min 39.3 ml/min Estimated GFR () 64.7 78.3 Estimated GFR (Non- 55.9 67.6 BUN/Creatinine Ratio 7.7 6.7 Random Glucose 114 mg/dl 105 mg/dl Calcium Level 9.4 mg/dl 8.6 mg/dl Total Bilirubin 0.4 mg/dl Aspartate Amino Transf (AST/SGOT) 35 U/L Alanine Aminotransferase (ALT/SGPT) 42 U/L Alkaline Phosphatase 100 U/L Troponin I < 0.015 ng/ml Total Protein 8.3 gm/dl Albumin 4.1 gm/dl Globulin 4.2 gm/dl Albumin/Globulin Ratio 1.0 Lipase 138 U/L Urine Color DK YELLOW Urine Appearance CLEAR Urine pH 6.5 Urine Specific [place] 1.014 Urine Protein NEG Urine Glucose (UA) NEG Urine Ketones 1+ Urine Occult Blood NEG Urine Nitrite NEG Urine Bilirubin NEG Urine Urobilinogen NEG Urine Leukocyte Esterase NEG Prothrombin Time 10.9 SECONDS Prothromb Time International Ratio 1.0 Activated Partial Thromboplast Time 22.7 SECONDS Partial Thromboplastin Ratio 0.9 Lactic Acid Level 1.6 mmol/L Impression Patient is a 82 year old female with c/o of nausea without obvious cause Plan Diff dx includes PUD, H pylori, central causes, medication induced, infectious causes -BID oral PPI -NPO after MN -EGD in [place] with Dr. Anderson -Anti-emetics as tolerated
[2017-04-20 14:06] LABS: BUN/CREATININE RATIO 6.2 (10-20); CALCIUM 8.3 mg/dl (8.5-10.1); CREATININE 0.8 mg/dl (0.60-1.20); MAGNESIUM 1.4 mg/dl (1.8-2.4); POTASSIUM 3.3 mmol/L (3.5-5.1)
[2017-04-20 14:16] LABS: C-REACTIVE PROTEIN 0.51 mg/dl (0-0.29); THYROID STIMULATING HORMONE 4.19 uIu/ml (0.300-4.500)
[2017-04-20] MEDS: ACETAMINOPHEN 325 MG TAB PO PRN ×2 (14:33→23:33)
[2017-04-20 15:40] VITALS: BP 153/86; PULSE 89; TEMP 36.9; O2SAT 97
[2017-04-20] MEDS ORDERED: LANSOPRAZOLE SOLUTAB 15 MG PO ONE (16:00)
[2017-04-20] MEDS: MAGNESIUM SULFATE 1GM / D5W 1 GM in PREMIXED IN D5W 100 ML IV SCH ×2 (16:03→17:05)
--- NOTE | 2017-04-20 16:04 | Family Medicine Progress Note ---
Progress Note Date of Service Apr 20, 2017. Subjective Pt evaluation today including: conversation w/ patient, physical exam, chart review, lab review, review of inpatient medication list Pain: No pain at this time PO Intake: Liquids only. Cannot tolerate PO intake due to intractable nausea. Voiding: no voiding problems Ms. Rader is a pleasant 82 year old female who complains of intractable nausea and vomiting resulting in fatigue, weakness and weight loss. 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 Today, she is unable to tolerate anything PO.. She reports no relief with the zofran or reglan. She denies any abdominal pain, fever, chills, or blood in her vomit. She, however, has noticed that over the last 3 weeks her stool in her colostomy bag has been darker than normal. She has a past history of ulcers. She was recently diagnosed with a UTI 6 days ago and was on cipro and then changed to macrobid due to nausea. She denies any urinary symptoms at the moment , such as frequency or dysuria. Constitutional: + weight loss, + weakness, + fatigue, No fever, No chills Respiratory: No cough, No sputum, No shortness of breath Cardiovascular: No chest pain Abdomen: + nausea, + vomiting, No pain, No diarrhea, No constipation Female : No dysuria, No urinary frequency, No hematuria All Other Systems: Reviewed and Negative Medications Current Inpatient Medications Medications (Trade) Dose Ordered Sig/Ana Route Start Time Stop Time Status Last Admin Dose Admin Ioversol (Optiray 320) 100 ml UD PRN IV 04/19/17 17:00 04/23/17 16:59 Enoxaparin Sodium (Lovenox Inj) 30 mg Q24H SQ 04/20/17 09:00 05/20/17 08:59 04/20/17 08:20 30 MG Acetaminophen (Tylenol Tab) 650 mg Q4H PRN PO 04/19/17 19:15 05/19/17 19:14 04/20/17 14:33 650 MG Al Hydrox/Mg Hydrox/Simethicone (Maalox Max Susp) 15 ml Q4H PRN PO 04/19/17 19:15 05/19/17 19:14 Magnesium Hydroxide (Milk Of Magnesia Susp) 30 ml Q6H PRN PO 04/19/17 19:15 05/19/17 19:14 Polyethylene (Miralax Powder Packet) 17 gm DAILY PRN PO 04/19/17 20:00 05/19/17 19:59 Ondansetron HCl (Zofran Inj) 4 mg Q6H PRN IV 04/19/17 19:15 05/19/17 19:14 04/20/17 08:15 4 MG Amlodipine Besylate (Norvasc Tab) 5 mg DAILY PO 04/20/17 09:00 05/20/17 08:59 04/20/17 08:04 5 MG Fluticasone Propionate (Flonase Nasal [place]) 2 sprays BID SHAMEKA 04/19/17 21:00 05/19/17 20:59 04/20/17 08:04 2 SPRAYS Levothyroxine Sodium (Synthroid Tab) 25 mcg DAILYBB PO 04/20/17 06:30 05/20/17 06:59 04/20/17 05:55 25 MCG Lorazepam (Ativan Tab) 1 mg TID PO 04/19/17 21:00 05/19/17 20:59 04/19/17 22:00 1 MG Multivitamins/ Minerals (Multivitamin W/ Minerals Tab) 1 tab QAM PO 04/20/17 09:00 05/20/17 08:59 Potassium Chloride/Sodium Chloride 1,000 ml @ 100 mls/hr Q10H IV 04/19/17 21:45 04/21/17 03:44 04/20/17 08:04 100 MLS/HR Ranitidine HCl (zANTac TAB) 150 mg BID PO 04/19/17 21:00 05/19/17 20:59 04/20/17 08:04 150 MG Pantoprazole Sodium (Protonix Tab) 40 mg BID PO 04/19/17 21:00 05/19/17 20:59 Metoclopramide HCl (Reglan Inj) 5 mg Q6 IV. 04/20/17 06:00 05/20/17 05:59 04/20/17 11:44 5 MG Objective Vital Signs Date Time Temp Pulse Resp B/P (MAP) Pulse Ox O2 Delivery O2 Flow Rate FiO2 04/20/17 11:37 36.8 85 18 147/83 (104) 98 Room Air 04/20/17 08:00 Room Air 04/20/17 07:05 36.8 85 20 148/82 (104) 96 Room Air 04/19/17 23:59 Room Air 04/19/17 23:17 36.9 117 18 137/68 (91) 95 Room Air 04/19/17 21:09 37.0 95 20 174/92 (119) 97 Room Air 04/19/17 21:02 37.1 89 14 165/99 95 Room Air 04/19/17 20:22 37.1 89 12 165/99 98 04/19/17 20:09 89 12 04/19/17 20:01 165/99 04/19/17 19:39 90 17 98 04/19/17 19:31 164/121 04/19/17 19:09 121 17 96 04/19/17 19:04 155/102 04/19/17 18:39 124 13 04/19/17 18:34 124 24 04/19/17 18:06 83 16 174/88 97 Room Air 04/19/17 18:04 84 23 99 04/19/17 18:01 174/88 04/19/17 17:56 170/87 04/19/17 17:05 81 04/19/17 17:04 81 17 04/19/17 16:59 86 13 04/19/17 16:29 88 15 04/19/17 16:08 37.1 98 20 159/103 97 Room Air Physical Exam General Appearance: WD/WN, no apparent distress Eyes: normal inspection Neck: supple, no adenopathy Respiratory/Chest: chest non-tender, lungs clear, normal breath sounds, no respiratory distress, no accessory muscle use Cardiovascular: regular rate, rhythm, no edema, no gallop, no JVD, no murmur Abdomen: normal bowel sounds, soft, no organomegaly, no pulsatile mass, + tenderness (mild discomfort in epigastric region) Neurologic/Psychiatric: alert, normal mood/affect, oriented x 3 Skin: normal color Laboratory Results 04/19/17 16:25 Red Blood Count 4.58, Mean Corpuscular Volume 94.1, Mean Corpuscular Hemoglobin 33.2, Mean Corpuscular Hemoglobin Concent 35.3, Mean Platelet Volume 9.1, Neutrophils (%) (Auto) 75.5, Lymphocytes (%) (Auto) 16.0, Monocytes (%) (Auto) 7.4, Eosinophils (%) (Auto) 0.5, Basophils (%) (Auto) 0.4, Neutrophils # (Auto) 7.11, Lymphocytes # (Auto) 1.51, Monocytes # (Auto) 0.70, Eosinophils # (Auto) 0.05, Basophils # (Auto) 0.04 04/20/17 13:08 Test 04/19/17 16:25 04/19/17 17:25 04/19/17 19:04 04/20/17 13:08 White Blood Count 9.43 K/uL (4.8-10.8) Red Blood Count 4.58 M/uL (4.2-5.4) Hemoglobin 15.2 g/dL (12.0-16.0) Hematocrit 43.1 % (37-47) Mean Corpuscular Volume 94.1 fL (80-100) Mean Corpuscular Hemoglobin 33.2 pg (25-34) Mean Corpuscular Hemoglobin Concent 35.3 g/dl (32-36) Platelet Count 255 K/uL (130-400) Mean Platelet Volume 9.1 fL (7.4-10.4) Neutrophils (%) (Auto) 75.5 % Lymphocytes (%) (Auto) 16.0 % Monocytes (%) (Auto) 7.4 % Eosinophils (%) (Auto) 0.5 % Basophils (%) (Auto) 0.4 % Neutrophils # (Auto) 7.11 K/uL (1.4-6.5) Lymphocytes # (Auto) 1.51 K/uL (1.2-3.4) Monocytes # (Auto) 0.70 K/uL (0.11-0.59) Eosinophils # (Auto) 0.05 K/uL (0-0.5) Basophils # (Auto) 0.04 K/uL (0-0.2) RDW Standard Deviation 42.6 fL (36.4-46.3) RDW Coefficient of Variation 12.5 % (11.5-14.5) Immature Granulocyte % (Auto) 0.2 % Immature Granulocyte # (Auto) 0.02 K/uL (0.00-0.02) Total Bilirubin 0.4 mg/dl (0.2-1) Aspartate Amino Transf (AST/SGOT) 35 U/L (15-37) Alanine Aminotransferase (ALT/SGPT) 42 U/L (12-78) Alkaline Phosphatase 100 U/L (45-117) Troponin I < 0.015 ng/ml (0-0.045) Total Protein 8.3 gm/dl (6.4-8.2) Albumin 4.1 gm/dl (3.4-5.0) Globulin 4.2 gm/dl (2.5-4.0) Albumin/Globulin Ratio 1.0 (0.9-2) Lipase 138 U/L (73-393) Urine Color DK YELLOW Urine Appearance CLEAR (CLEAR) Urine pH 6.5 (4.5-7.5) Urine Specific [place] 1.014 (1.000-1.030) Urine Protein NEG (NEG) Urine Glucose (UA) NEG (NEG) Urine Ketones 1+ (NEG) Urine Occult Blood NEG (NEG) Urine Nitrite NEG (NEG) Urine Bilirubin NEG (NEG) Urine Urobilinogen NEG (NEG) Urine Leukocyte Esterase NEG (NEG) Prothrombin Time 10.9 SECONDS (9.0-12.0) Prothromb Time International Ratio 1.0 (0.9-1.1) Activated Partial Thromboplast Time 22.7 SECONDS (21.0-31.0) Partial Thromboplastin Ratio 0.9 Lactic Acid Level 1.6 mmol/L (0.4-2.0) Erythrocyte Sedimentation Rate 8 mm/hr (0-21) Anion Gap 9.0 mmol/L (3-11) Est Creatinine Clear Calc Drug Dose 40.3 ml/min Estimated GFR () 80.7 Estimated GFR (Non- 69.6 BUN/Creatinine Ratio 6.2 (10-20) Calcium Level 8.3 mg/dl (8.5-10.1) Magnesium Level 1.4 mg/dl (1.8-2.4) C-Reactive Protein 0.51 mg/dl (0-0.29) Vitamin B12 Level 595 pg/mL (211-911) Folate > 24.00 ng/mL (>5.38) Thyroid Stimulating Hormone (TSH) 4.190 uIu/ml (0.300-4.500) Assessment and Plan Intractable Nausea Patient was given 12.5mg Promethazine IV as per pharmacy recommendations. She has responded well to this medication and reports an improvement in her nausea. Gastro was consulted. As per Dr. Manzo's recommendations, Ms. Rader will be made NPO after midnight as she will undergo an EGD tomorrow morning with Dr. Anderson. Thank you to Dr. Manzo for his assessment. Ms. Rader was also put on 15mg of Prevacid sublingual BID as she was unable to tolerate the oral PPI. Her TSH, Vitamin B12 and folate levels were checked and all normal. ESR was normal and CRP was raised at 0.51. Hypokalemia Her potassium this morning was 2.9. She was supplemented with 20 mEq of KCl, which increased her level to 3.3. Will continue to supplement potassium with another 20mEq. Magnesium was also found to be 1.4 and 2g of magnesium sulfate was given. CODE STATUS: Full DISPO: Med/Surg VTE: SCDs, Lovenox Resident Physician Supervision Note: I was present with PGY1 Dr. Frank Lozoya during the history and exam. I discussed the case with the resident and agree with the findings and plan as documented in the note. Any exceptions or clarifications are listed here: none. Saw patient on rounds and she was feeling better; no further nausea. Reports hemicolectomy was done due to chronic stool incontinence, NOT IBD. Denies chronic use of NSAIDs. VSS afebrile gen - nad mouth - MMM heart - RRR, s1, s2 lungs - CTA b/l abd - soft, NT, ND, BS+, colostomy in place with brown stool ext - no edema A/P: 1. intractable nausea, emesis, and inability to maintain nutrition - appreciate GI input. EGD tomorrow. PPI twice daily. Check TSH, r/o iatrogenic hyperthyroidism. CT abd/pelvis with "matted" appearing ileal loops - Crohn's ?? Check b12, sed rate, crp. Agree that if GI w/u is negative consider CT head, cortisol, etc. 2. hypokalemia - replace, BMP in am. 3. hypomagnesemia - replace, mag in am. 4. chronic anxiety - ativan TID per home schedule. 5. CKD stage 3 - Cr stable, BMP am. updated at bedside. Documented By: Vishnu Nunes MD Resident Tracking Resident Involvement: Resident Care Provided Care Provided: Adult [facility] Medicine
[2017-04-20] MEDS: LANSOPRAZOLE SOLUTAB 15 MG PO SCH (20:07)
[2017-04-20] MEDS ORDERED: LANSOPRAZOLE SOLUTAB 15 MG PO SCH (21:00)
[2017-04-20 23:18] VITALS: BP 128/80; PULSE 82; TEMP 36.8; O2SAT 97
[2017-04-21] VITALS (7 sets, daily range): BP systolic 115–159; BP diastolic 68–89; PULSE 82–95; TEMP 36.8–37.2; O2SAT 94–97
[2017-04-21] MEDS: LEVOTHYROXINE 25 MCG TAB PO SCH (05:53)
[2017-04-21] MEDS: METOCLOPRAMIDE HCL INJ 5 MG/ML 2 ML VIAL IV. SCH ×4 (05:53→23:36)
[2017-04-21 06:40] LABS: CALCIUM 8.6 mg/dl (8.5-10.1); CREATININE 0.64 mg/dl (0.60-1.20); MAGNESIUM 1.8 mg/dl (1.8-2.4); PHOSPHORUS 2.3 mg/dl (2.5-4.9); POTASSIUM 3.6 mmol/L (3.5-5.1)
[2017-04-21] MEDS: FLUTICASONE PROPIONATE NA SPR 16 GM BTL NAE SCH ×2 (08:14→21:05)
--- NOTE | 2017-04-21 08:23 | Clinical Documentation Query ---
CLINICAL DOCUMENTATION QUERY 82 year old female who presents to the Emergency Room with complaints of persistent nausea. In your clinical opinion is this patient being managed for: ( ) Severe malnutrition treated with GI and dietary consult. ( x ) Mild malnutrition ( ) Other explanation of clinical findings (Please Explain) ( ) Unable to determine (Please Define) ( ) Need to Discuss ( ) Not Agree The medical record reflects the following clinical findings, treatment, and risk factors. Clinical Indicators: H&P notes anorexia x2 weeks. She is noted to be thin. Treatment: dietary consult, GI consult. Risk Factors: Age, ?Crohn's, Please clarify and document your clinical opinion in the progress notes and discharge summary. Terms such as "probable", "suspected", "likely", "questionable", "possible", or "still to be ruled out" are acceptable. IF IN AGREEMENT, YOU MUST DOCUMENT ABOVE DIAGNOSTIC STATEMENT IN DAILY PROGRESS NOTES AND DISCHARGE SUMMARY. This document is not part of the patient's record. Thank You, Fran Prabhakar, RN [phone]
[2017-04-21] MEDS ORDERED: LIDOCAINE HCL 2% 2 ML VIAL (20MG/ML) ONE ×2 (10:26→10:59)
[2017-04-21] MEDS ORDERED: PROPOFOL IV EMULSION 10 MG/ML 20 ML VIAL IV ONE (10:26)
[2017-04-21] MEDS: CEROVITE ADV FORMULA TAB PO SCH (11:40)
[2017-04-21] MEDS: LORAZEPAM 1 MG TAB PO SCH ×3 (11:40→21:06)
[2017-04-21] MEDS: AMLODIPINE BESYLATE 5 MG TAB PO SCH (11:41)
[2017-04-21] MEDS: RANITIDINE HCL 150 MG TAB PO SCH ×2 (11:42→21:06)
[2017-04-21] MEDS: LANSOPRAZOLE SOLUTAB 15 MG PO SCH ×2 (11:42→21:06)
[2017-04-21] MEDS: ENOXAPARIN 30 MG/0.3 ML SYR SQ SCH (11:43)
[2017-04-21] MEDS ORDERED: NURSING VERBAL MED ORDER ONE (12:15)
[2017-04-21] MEDS ORDERED: PROMETHAZINE HCL INJ 12.5 MG in SODIUM CHLORIDE 0.9% 50ML 50 ML IV ONE (12:30)
--- NOTE | 2017-04-21 12:35 | Anesthesiology Progress Note ---
Anesthesia Post Op Note Date & Time Apr 21, 2017 at 12:35 Vital Signs Pain Intensity: 0 Vital Signs Past 12 Hours Date Time Temp Pulse Resp B/P (MAP) Pulse Ox O2 Delivery O2 Flow Rate FiO2 04/21/17 11:45 153/81 (105) 04/21/17 11:28 88 20 160/87 (111) 99 Room Air 04/21/17 11:22 117/88 (98) 04/21/17 11:15 86 16 154/94 (114) 98 Room Air 04/21/17 11:00 82 16 139/87 (104) 98 Room Air 04/21/17 09:57 37.4 97 20 185/87 (119) 97 Room Air 04/21/17 08:00 Room Air 04/21/17 07:25 37.2 91 16 159/75 (103) 95 Room Air 91 04/21/17 05:10 36.8 85 20 128/80 97 Room Air 82 Notes Mental Status: alert / awake / arousable, participated in evaluation Pt Amnestic to Procedure: Yes Nausea / Vomiting: adequately controlled Pain: adequately controlled Airway Patency, RR, SpO2: stable & adequate BP & HR: stable & adequate Hydration State: stable & adequate Anesthetic Complications: no major complications apparent
--- NOTE | 2017-04-21 12:46 | GI REPORT ---
Procedure Date: 04/21/2017 10:31 AM Procedure: Upper GI endoscopy Indications: Anorexia, Nausea Medicines: Propofol per Anesthesia Complications: No immediate complications. Estimated blood loss: Minimal. Estimated Blood Loss: Estimated blood loss: none. Procedure: Pre-Anesthesia Assessment: - Prior to the procedure, a History and Physical was performed, and patient medications, allergies and sensitivities were reviewed. The patient's tolerance of previous anesthesia was reviewed. - The risks and benefits of the procedure and the sedation options and risks were discussed with the patient. All questions were answered and informed consent was obtained. - Patient identification and proposed procedure were verified prior to the procedure by the physician and the nurse. The procedure was verified in the pre-procedure area in the procedure room. - Mental Status Examination: alert and oriented. Airway Examination: normal oropharyngeal airway and neck mobility. Respiratory Examination: clear to auscultation. CV Examination: normal. Abdominal Examination: bowel sounds present, abdomen soft and non-tender, no masses or organomegaly noted. - ASA Grade Assessment: III - A patient with severe systemic disease. After obtaining informed consent, the endoscope was passed under direct vision. Throughout the procedure, the patient's blood pressure, pulse, and oxygen saturations were monitored continuously. The scope was introduced through the mouth, and advanced to the third part of duodenum. The upper GI endoscopy was accomplished without difficulty. The patient tolerated the procedure well. Findings: The esophagus was normal. The entire examined stomach was normal. Biopsies were taken with a cold forceps for Helicobacter pylori testing. Verification of patient identification for the specimen was done by the physician and nurse using the patient's name and date. Estimated blood loss was minimal. The examined duodenum was normal. Impression: - Normal esophagus. - Normal stomach. Biopsied. - Normal examined duodenum. Recommendation: - Await pathology results. - Return patient to hospital walker for ongoing care. - Advance diet as tolerated. Moraima Anderson D.O. Moraima Anderson, 04/21/2017 11:02:50 AM This report has been signed electronically. Note Initiated On: 04/21/2017 10:31 AM I attest to the content of the Intraoperative Record and orders documented therein, exceptions below
--- NOTE | 2017-04-21 15:01 | Family Medicine Progress Note ---
Progress Note Date of Service Apr 21, 2017. Subjective Pt evaluation today including: conversation w/ patient, physical exam Voiding: no voiding problems, no incontinence Mrs Rader felt well this morning. Of all the anti-emetics, Phenergan seems to help her the most. She had her EGD which was normal. Constitutional: No fever, No chills Eyes: No worsening of vision ENT: No hearing loss Cardiovascular: No chest pain All Other Systems: Reviewed and Negative Medications Current Inpatient Medications Medications (Trade) Dose Ordered Sig/Ana Route Start Time Stop Time Status Last Admin Dose Admin Ioversol (Optiray 320) 100 ml UD PRN IV 04/19/17 17:00 04/23/17 16:59 Enoxaparin Sodium (Lovenox Inj) 30 mg Q24H SQ 04/20/17 09:00 05/20/17 08:59 04/21/17 11:43 30 MG Acetaminophen (Tylenol Tab) 650 mg Q4H PRN PO 04/19/17 19:15 05/19/17 19:14 04/20/17 23:33 650 MG Al Hydrox/Mg Hydrox/Simethicone (Maalox Max Susp) 15 ml Q4H PRN PO 04/19/17 19:15 05/19/17 19:14 Magnesium Hydroxide (Milk Of Magnesia Susp) 30 ml Q6H PRN PO 04/19/17 19:15 05/19/17 19:14 Polyethylene (Miralax Powder Packet) 17 gm DAILY PRN PO 04/19/17 20:00 05/19/17 19:59 Ondansetron HCl (Zofran Inj) 4 mg Q6H PRN IV 04/19/17 19:15 05/19/17 19:14 04/20/17 08:15 4 MG Amlodipine Besylate (Norvasc Tab) 5 mg DAILY PO 04/20/17 09:00 05/20/17 08:59 04/21/17 11:41 5 MG Fluticasone Propionate (Flonase Nasal [place]) 2 sprays BID SHAMEKA 04/19/17 21:00 05/19/17 20:59 04/21/17 08:14 2 SPRAYS Levothyroxine Sodium (Synthroid Tab) 25 mcg DAILYBB PO 04/20/17 06:30 05/20/17 06:59 04/21/17 05:53 25 MCG Lorazepam (Ativan Tab) 1 mg TID PO 04/19/17 21:00 05/19/17 20:59 04/21/17 11:40 1 MG Multivitamins/ Minerals (Multivitamin W/ Minerals Tab) 1 tab QAM PO 04/20/17 09:00 05/20/17 08:59 04/21/17 11:40 1 TAB Ranitidine HCl (zANTac TAB) 150 mg BID PO 04/19/17 21:00 05/19/17 20:59 04/21/17 11:42 150 MG Metoclopramide HCl (Reglan Inj) 5 mg Q6 IV. 04/20/17 06:00 05/20/17 05:59 04/21/17 11:47 5 MG Lansoprazole (Prevacid Solutab) 30 mg BID PO 04/20/17 21:00 05/20/17 20:59 04/21/17 11:42 30 MG Objective Vital Signs Date Time Temp Pulse Resp B/P (MAP) Pulse Ox O2 Delivery O2 Flow Rate FiO2 04/21/17 11:45 153/81 (105) 04/21/17 11:28 88 20 160/87 (111) 99 Room Air 04/21/17 11:22 117/88 (98) 04/21/17 11:15 86 16 154/94 (114) 98 Room Air 04/21/17 11:00 82 16 139/87 (104) 98 Room Air 04/21/17 09:57 37.4 97 20 185/87 (119) 97 Room Air 04/21/17 08:00 Room Air 04/21/17 07:25 37.2 91 16 159/75 (103) 95 Room Air 91 04/21/17 05:10 36.8 85 20 128/80 97 Room Air 82 04/21/17 00:00 Room Air 04/20/17 23:18 36.8 82 20 128/80 (96) 97 04/20/17 20:00 Room Air 04/20/17 16:00 Room Air 04/20/17 15:40 36.9 89 19 153/86 (108) 97 Room Air Physical Exam General Appearance: WD/WN, no apparent distress Eyes: normal inspection, PERRL ENT: hearing grossly normal Neck: supple, no JVD Respiratory/Chest: lungs clear, normal breath sounds, no respiratory distress Cardiovascular: regular rate, rhythm, no murmur Abdomen: non tender, soft Extremities: non-tender, no pedal edema Skin: no rash Laboratory Results Last 24 Hours Test 04/21/17 05:57 Sodium Level 145 mmol/L Potassium Level 3.6 mmol/L Chloride Level 111 mmol/L Carbon Dioxide Level 26 mmol/L Anion Gap 8.0 mmol/L Blood Urea Nitrogen 3 mg/dl Creatinine 0.64 mg/dl Est Creatinine Clear Calc Drug Dose 50.4 ml/min Estimated GFR () 97.7 Estimated GFR (Non- 84.3 BUN/Creatinine Ratio 5.0 Random Glucose 115 mg/dl Calcium Level 8.6 mg/dl Phosphorus Level 2.3 mg/dl Magnesium Level 1.8 mg/dl 25-Hydroxy Vitamin D Total 27.3 ng/ml EGD: Impression: - Normal esophagus. - Normal stomach. Biopsied. - Normal examined duodenum. Recommendation: - Await pathology results. - Return patient to hospital walker for ongoing care. - Advance diet as tolerated. Assessment and Plan 82 yo F with intractable nausea and vomiting, causing overall weakness - so far normal EGD, currently advancing diet as tolerated. Nausea / vomiting - Continue Zofran, Phenergan, and Reglan - ?No gastritis on EGD, though will continue avoiding NSAIDS and provide Zantac / PPI therapy - Awaiting EGD pathology Dehydration - IV fluids - Advancing diet as tolerated Deconditioning - PT/OT assessments Hypokalemia / Hypomagnesemia - So far repleted 2g IV Mag Sulfate - Will continue replacing K+ Hx UTI - Urinalysis here negative, received over 5 days of Abx, will await culture Chronic anxiety - Continue Ativan 1mg TID, pt reports she takes this daily x 20 years Back pain - Heat / ice packs CODE STATUS: Full DISPO: Med/Surg VTE: SCDs, Lovenox Resident Physician Supervision Note: I interviewed and examined the patient. Discussed with Dr. Delong and agree with findings and plan as documented in the note. Any exceptions or clarifications are listed here: None Documented By: Kael Michel seen post EGD, about to try to eat liquids. all other ROS otherwise negative except for as above vitals noted nad breathing unlabored no pallor or icterus gastritis - likely cause of intractable nausea/vomiting - PPI, H2, avoid offending agents, advance diet as tolerated matting of small bowel on CT - outpt GI f/u Resident Tracking Resident Involvement: Resident Care Provided Care Provided: Adult Hospital Medicine
[2017-04-21] MEDS: ACETAMINOPHEN 325 MG TAB PO PRN (21:05)
[2017-04-22] VITALS: O2SAT 94
[2017-04-22] MEDS: METOCLOPRAMIDE HCL INJ 5 MG/ML 2 ML VIAL IV. SCH ×2 (06:12→12:11)
[2017-04-22] MEDS: LEVOTHYROXINE 25 MCG TAB PO SCH (06:12)
[2017-04-22] MEDS ORDERED: PROMETHAZINE HCL 25 MG TAB PO ONE (07:30)
[2017-04-22 07:48] VITALS: BP 156/87; PULSE 90; TEMP 36.9; O2SAT 92
[2017-04-22] MEDS: FLUTICASONE PROPIONATE NA SPR 16 GM BTL NAE SCH ×2 (08:13→21:04)
[2017-04-22] MEDS: LANSOPRAZOLE SOLUTAB 15 MG PO SCH ×2 (08:15→21:04)
[2017-04-22] MEDS: CEROVITE ADV FORMULA TAB PO SCH (08:15)
[2017-04-22] MEDS: AMLODIPINE BESYLATE 5 MG TAB PO SCH (08:15)
[2017-04-22] MEDS: LORAZEPAM 1 MG TAB PO SCH ×3 (08:15→21:04)
[2017-04-22] MEDS: ENOXAPARIN 30 MG/0.3 ML SYR SQ SCH (08:16)
[2017-04-22] MEDS: RANITIDINE HCL 150 MG TAB PO SCH ×2 (08:16→21:04)
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
[2017-04-22] MEDS: ACETAMINOPHEN 325 MG TAB PO PRN (12:16)
--- NOTE | 2017-04-22 13:29 | Gastroenterology Progress Note ---
Progress Note Date of Service: Apr 22, 2017 Subjective Pt evaluation today including: conversation w/ patient, physical exam, chart review, lab review, review of inpatient medication list Pt still having some nausea, states Phenergan works best for her, not the Zofran. Currently on Reglan 5mg IV q6hrs. She is having mild upper abd pain. Having hard time eating breakfast, wants to stay on [place] diet. EGD exam yesterday unremarkable, bx pending. Review of Systems Constitutional: No fever, No chills Respiratory: No cough, No shortness of breath Abdomen: + pain, + nausea, + vomiting Psych: + anxiety Endo: + fatigue Medications Current Inpatient Medications Medications (Trade) Dose Ordered Sig/Ana Route Start Time Stop Time Status Last Admin Dose Admin Ioversol (Optiray 320) 100 ml UD PRN IV 04/19/17 17:00 04/23/17 16:59 Enoxaparin Sodium (Lovenox Inj) 30 mg Q24H SQ 04/20/17 09:00 05/20/17 08:59 04/22/17 08:16 30 MG Acetaminophen (Tylenol Tab) 650 mg Q4H PRN PO 04/19/17 19:15 05/19/17 19:14 04/22/17 12:16 650 MG Al Hydrox/Mg Hydrox/Simethicone (Maalox Max Susp) 15 ml Q4H PRN PO 04/19/17 19:15 05/19/17 19:14 Magnesium Hydroxide (Milk Of Magnesia Susp) 30 ml Q6H PRN PO 04/19/17 19:15 05/19/17 19:14 Polyethylene (Miralax Powder Packet) 17 gm DAILY PRN PO 04/19/17 20:00 05/19/17 19:59 Ondansetron HCl (Zofran Inj) 4 mg Q6H PRN IV 04/19/17 19:15 05/19/17 19:14 04/20/17 08:15 4 MG Amlodipine Besylate (Norvasc Tab) 5 mg DAILY PO 04/20/17 09:00 05/20/17 08:59 04/22/17 08:15 5 MG Fluticasone Propionate (Flonase Nasal [place]) 2 sprays BID SHAMEKA 04/19/17 21:00 05/19/17 20:59 04/22/17 08:13 2 SPRAYS Levothyroxine Sodium (Synthroid Tab) 25 mcg DAILYBB PO 04/20/17 06:30 05/20/17 06:59 04/22/17 06:12 25 MCG Lorazepam (Ativan Tab) 1 mg TID PO 04/19/17 21:00 05/19/17 20:59 04/22/17 08:15 1 MG Multivitamins/ Minerals (Multivitamin W/ Minerals Tab) 1 tab QAM PO 04/20/17 09:00 05/20/17 08:59 04/22/17 08:15 1 TAB Ranitidine HCl (zANTac TAB) 150 mg BID PO 04/19/17 21:00 05/19/17 20:59 04/22/17 08:16 150 MG Metoclopramide HCl (Reglan Inj) 5 mg Q6 IV. 04/20/17 06:00 05/20/17 05:59 04/22/17 12:11 5 MG Lansoprazole (Prevacid Solutab) 30 mg BID PO 04/20/17 21:00 05/20/17 20:59 04/22/17 08:15 30 MG Objective Vital Signs Date Time Temp Pulse Resp B/P (MAP) Pulse Ox O2 Delivery O2 Flow Rate FiO2 04/22/17 08:00 Room Air 04/22/17 07:48 36.9 90 18 156/87 (110) 92 Room Air 04/22/17 00:00 94 Room Air 04/21/17 23:35 37.0 82 20 115/68 (84) 95 Room Air 04/21/17 20:00 94 Room Air 04/21/17 19:37 36.9 95 20 134/89 (104) 94 Room Air 04/21/17 16:00 Room Air 04/21/17 15:46 36.9 86 16 152/87 (108) 95 Room Air Physical Exam General Appearance: WD/WN, no apparent distress Eyes: normal inspection, PERRL, EOMI Neck: supple, no JVD, trachea midline Respiratory/Chest: normal breath sounds, no respiratory distress, no accessory muscle use Cardiovascular: regular rate, rhythm, no gallop, no murmur Abdomen: normal bowel sounds, soft, + tenderness (mid abd area), + pertinent finding (LUQ ostomy bag w loose brown stools) Extremities: normal inspection, no pedal edema, no calf tenderness Neurologic/Psych: alert, normal mood/affect, oriented x 3 Skin: normal color, warm/dry, no rash Laboratory Results Last 24 Hours Test 04/21/17 15:30 Stool Occult Blood NEGATIVE Assessment and Plan Pt is a 82 y/o female seen for nausea, loss of appetite. Her EGD exam is unremarkable, bx pending. - Awaiting path report - DC Reglan (will avoid use as this may cause tardive dyskinesia in elderly patients); Promethazine 25mg PO q6hrs - Psych consult for anxiety med management. - FL diet, advance as tolerated. - Will follow Late entry: Patient was seen and examined with Alberta Hoff on 04/22. Her note reflects our findings and plan.
[2017-04-22 15:26] VITALS: BP 111/71; PULSE 91; TEMP 36.8; O2SAT 96
[2017-04-22 16:00] VITALS: O2SAT 96
[2017-04-22] MEDS: PROMETHAZINE HCL 25 MG TAB PO PRN (22:43)
[2017-04-22 23:28] VITALS: BP 141/86; PULSE 88; TEMP 36.5; O2SAT 96
[2017-04-23] MEDS: LEVOTHYROXINE 25 MCG TAB PO SCH (05:51)
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
[2017-04-23 07:26] VITALS: BP 127/80; PULSE 88; TEMP 36.6; O2SAT 94
[2017-04-23] MEDS: LANSOPRAZOLE SOLUTAB 15 MG PO SCH ×2 (08:12→21:03)
[2017-04-23] MEDS: LORAZEPAM 1 MG TAB PO SCH ×3 (08:12→21:02)
[2017-04-23] MEDS: FLUTICASONE PROPIONATE NA SPR 16 GM BTL NAE SCH ×2 (08:12→21:03)
[2017-04-23] MEDS: CEROVITE ADV FORMULA TAB PO SCH (08:13)
[2017-04-23] MEDS: ENOXAPARIN 30 MG/0.3 ML SYR SQ SCH (08:13)
[2017-04-23] MEDS: AMLODIPINE BESYLATE 5 MG TAB PO SCH (08:13)
[2017-04-23] MEDS: RANITIDINE HCL 150 MG TAB PO SCH ×2 (08:13→21:04)
[2017-04-23] MEDS: PROMETHAZINE HCL 25 MG TAB PO PRN ×2 (08:17→22:37)
[2017-04-23] MEDS: CHOLECALCIFEROL 1000 INTER.UNIT TAB PO SCH (09:59)
--- NOTE | 2017-04-23 12:01 | Psychiatric Consultation ---
Psychiatric Consultation Date of Service: Apr 23, 2017. Consult placed to evaluate anxiety and anxiety meds. Saw the patient only briefly this AM as she did not want to complete the consult. I was able to stay long enough to relay some information about chronic anxiety (says she's been anxious all of her life) including treatment with SSRI's. She did not want to pursue further conversation, but I left my name, with encouragement to have me called if she changes her mind. I see that Dr. Wilson from [facility] has ordered Remeron which I think is a great choice to aid with appetite, sleep, mood and likely anxiety.
--- NOTE | 2017-04-23 12:12 | Gastroenterology Progress Note ---
Progress Note Date of Service: Apr 23, 2017 Subjective Pt evaluation today including: conversation w/ patient, physical exam, chart review, lab review, review of inpatient medication list Pt still having some nausea this AM, and mild epigastric area tenderness. Bx came back positive for mild gastritis, no Hpylori. Review of Systems Constitutional: No fever, No chills Respiratory: No cough Cardiac: No chest pain Abdomen: + pain, + nausea, No vomiting Medications Current Inpatient Medications Medications (Trade) Dose Ordered Sig/Ana Route Start Time Stop Time Status Last Admin Dose Admin Ioversol (Optiray 320) 100 ml UD PRN IV 04/19/17 17:00 04/23/17 16:59 Enoxaparin Sodium (Lovenox Inj) 30 mg Q24H SQ 04/20/17 09:00 05/20/17 08:59 04/23/17 08:13 30 MG Acetaminophen (Tylenol Tab) 650 mg Q4H PRN PO 04/19/17 19:15 05/19/17 19:14 04/22/17 12:16 650 MG Al Hydrox/Mg Hydrox/Simethicone (Maalox Max Susp) 15 ml Q4H PRN PO 04/19/17 19:15 05/19/17 19:14 Magnesium Hydroxide (Milk Of Magnesia Susp) 30 ml Q6H PRN PO 04/19/17 19:15 05/19/17 19:14 Polyethylene (Miralax Powder Packet) 17 gm DAILY PRN PO 04/19/17 20:00 05/19/17 19:59 Ondansetron HCl (Zofran Inj) 4 mg Q6H PRN IV 04/19/17 19:15 05/19/17 19:14 04/20/17 08:15 4 MG Amlodipine Besylate (Norvasc Tab) 5 mg DAILY PO 04/20/17 09:00 05/20/17 08:59 04/23/17 08:13 5 MG Fluticasone Propionate (Flonase Nasal [place]) 2 sprays BID SHAMEKA 04/19/17 21:00 05/19/17 20:59 04/23/17 08:12 2 SPRAYS Levothyroxine Sodium (Synthroid Tab) 25 mcg DAILYBB PO 04/20/17 06:30 05/20/17 06:59 04/23/17 05:51 25 MCG Lorazepam (Ativan Tab) 1 mg TID PO 04/19/17 21:00 05/19/17 20:59 04/23/17 08:12 1 MG Multivitamins/ Minerals (Multivitamin W/ Minerals Tab) 1 tab QAM PO 04/20/17 09:00 05/20/17 08:59 04/23/17 08:13 1 TAB Ranitidine HCl (zANTac TAB) 150 mg BID PO 04/19/17 21:00 05/19/17 20:59 04/23/17 08:13 150 MG Lansoprazole (Prevacid Solutab) 30 mg BID PO 04/20/17 21:00 05/20/17 20:59 04/23/17 08:12 30 MG Promethazine HCl (Phenergan Tab) 25 mg Q6H PRN PO 04/22/17 13:30 05/22/17 13:29 04/23/17 08:17 25 MG Cholecalciferol (Vitamin D Tab) 2,000 inter.unit QAM PO 04/23/17 09:00 05/23/17 08:59 04/23/17 09:59 2,000 INTER.UNIT Mirtazapine (Remeron Tab) 15 mg HS PO 04/23/17 21:00 05/23/17 20:59 Objective Vital Signs Date Time Temp Pulse Resp B/P (MAP) Pulse Ox O2 Delivery O2 Flow Rate FiO2 04/23/17 08:00 Room Air 04/23/17 07:26 36.6 88 16 127/80 (96) 94 Room Air 04/23/17 00:00 Room Air 04/22/17 23:28 36.5 88 18 141/86 (104) 96 Room Air 04/22/17 16:00 96 Room Air 04/22/17 15:26 36.8 91 18 111/71 (84) 96 Room Air Physical Exam General Appearance: WD/WN, no apparent distress Eyes: normal inspection, PERRL, EOMI Neck: supple, no JVD, trachea midline Respiratory/Chest: normal breath sounds, no respiratory distress, no accessory muscle use Cardiovascular: regular rate, rhythm, no gallop, no murmur Abdomen: normal bowel sounds, soft, + tenderness (epigastric) Extremities: normal inspection, no pedal edema, no calf tenderness Neurologic/Psych: alert, normal mood/affect, oriented x 3 Skin: normal color, no jaundice, no rash Assessment and Plan Pt is a 82 y/o female seen for nausea, loss of appetite. Her EGD exam is unremarkable, bx showed mild gastritis, no Hpylori - Promethazine 25mg PO q6hrs - Psych consult for anxiety med management. -> she refused eval this AM. - Advance diet as tolerated. - Discussed w primary team, will try Remeron 15mg qHS to help w improving appetite, sleep and maybe anxiety. - Will monitor peripherally, pls call if new questions/concerns. Late entry: Patient was seen and examined with Alberta Hoff on 04/23. Her note reflects our findings and plan.
[2017-04-23 15:47] VITALS: BP 111/77; PULSE 100; TEMP 36.7; O2SAT 97
[2017-04-23 16:00] VITALS: O2SAT 97
[2017-04-23] MEDS: MIRTAZAPINE TAB 15 MG TAB PO SCH (21:04)
[2017-04-23 23:33] VITALS: BP 117/74; PULSE 87; TEMP 36.8; O2SAT 96
[2017-04-24] VITALS: O2SAT 97
[2017-04-24] MEDS: LEVOTHYROXINE 25 MCG TAB PO SCH (05:54)
[2017-04-24] MEDS: LORAZEPAM 1 MG TAB PO SCH ×2 (07:45→14:05)
[2017-04-24] MEDS: FLUTICASONE PROPIONATE NA SPR 16 GM BTL NAE SCH (07:46)
[2017-04-24] MEDS: RANITIDINE HCL 150 MG TAB PO SCH ×2 (07:46→18:42)
[2017-04-24] MEDS: CEROVITE ADV FORMULA TAB PO SCH (07:46)
[2017-04-24] MEDS: AMLODIPINE BESYLATE 5 MG TAB PO SCH (07:46)
[2017-04-24] MEDS: CHOLECALCIFEROL 1000 INTER.UNIT TAB PO SCH (07:46)
[2017-04-24] MEDS: LANSOPRAZOLE SOLUTAB 15 MG PO SCH ×2 (07:46→18:43)
[2017-04-24] MEDS: ENOXAPARIN 30 MG/0.3 ML SYR SQ SCH (07:47)
[2017-04-24 07:56] VITALS: BP 129/78; PULSE 84; TEMP 36.7; O2SAT 95
--- NOTE | 2017-04-24 09:30 | Family Medicine Progress Note ---
Progress Note Date of Service Apr 24, 2017. Subjective Pt evaluation today including: conversation w/ patient, physical exam, chart review, lab review, review of inpatient medication list Pain: No pain reported by patient this AM PO Intake: Commencing regular diet Voiding: no voiding problems Lali is feeling tired this morning, but says that her appetite is improving. She was able to keep down food yesterday without nausea/vomiting She is only complaining of some morning queasiness, which improves with sitting up and becoming more active She remains of the position that she is not ready to go home yet. She is worried that she hasn't had enough meals here that we can monitor her response. Constitutional: + fatigue Abdomen: + nausea Psychiatric: + anxiety All Other Systems: Reviewed and Negative Medications Current Inpatient Medications Medications (Trade) Dose Ordered Sig/Ana Route Start Time Stop Time Status Last Admin Dose Admin Enoxaparin Sodium (Lovenox Inj) 30 mg Q24H SQ 04/20/17 09:00 05/20/17 08:59 04/24/17 07:47 30 MG Acetaminophen (Tylenol Tab) 650 mg Q4H PRN PO 04/19/17 19:15 05/19/17 19:14 04/22/17 12:16 650 MG Al Hydrox/Mg Hydrox/Simethicone (Maalox Max Susp) 15 ml Q4H PRN PO 04/19/17 19:15 05/19/17 19:14 Magnesium Hydroxide (Milk Of Magnesia Susp) 30 ml Q6H PRN PO 04/19/17 19:15 05/19/17 19:14 Polyethylene (Miralax Powder Packet) 17 gm DAILY PRN PO 04/19/17 20:00 05/19/17 19:59 Ondansetron HCl (Zofran Inj) 4 mg Q6H PRN IV 04/19/17 19:15 05/19/17 19:14 04/20/17 08:15 4 MG Amlodipine Besylate (Norvasc Tab) 5 mg DAILY PO 04/20/17 09:00 05/20/17 08:59 04/24/17 07:46 5 MG Fluticasone Propionate (Flonase Nasal [place]) 2 sprays BID SHAMEKA 04/19/17 21:00 05/19/17 20:59 04/24/17 07:46 2 SPRAYS Levothyroxine Sodium (Synthroid Tab) 25 mcg DAILYBB PO 04/20/17 06:30 05/20/17 06:59 04/24/17 05:54 25 MCG Lorazepam (Ativan Tab) 1 mg TID PO 04/19/17 21:00 05/19/17 20:59 04/24/17 07:45 1 MG Multivitamins/ Minerals (Multivitamin W/ Minerals Tab) 1 tab QAM PO 04/20/17 09:00 05/20/17 08:59 04/24/17 07:46 1 TAB Ranitidine HCl (zANTac TAB) 150 mg BID PO 04/19/17 21:00 05/19/17 20:59 04/24/17 07:46 150 MG Lansoprazole (Prevacid Solutab) 30 mg BID PO 04/20/17 21:00 05/20/17 20:59 04/24/17 07:46 30 MG Promethazine HCl (Phenergan Tab) 25 mg Q6H PRN PO 04/22/17 13:30 05/22/17 13:29 04/23/17 22:37 25 MG Cholecalciferol (Vitamin D Tab) 2,000 inter.unit QAM PO 04/23/17 09:00 05/23/17 08:59 04/24/17 07:46 2,000 INTER.UNIT Mirtazapine (Remeron Tab) 15 mg HS PO 04/23/17 21:00 05/23/17 20:59 04/23/17 21:04 15 MG Resident Tracking Resident Involvement: Resident Care Provided Care Provided: Adult Hospital Medicine
[2017-04-24] MEDS: PROMETHAZINE HCL 25 MG TAB PO PRN (10:50)
[2017-04-24 15:35] VITALS: BP 130/84; PULSE 85; TEMP 36.8; O2SAT 94
--- NOTE | 2017-04-24 15:43 | Discharge Instructions ---
Discharge Instructions Date of Service Apr 24, 2017. Admission Reason for Admission: Anorexia, Intractable Nausea And Vomiting Discharge Discharge Diagnosis / Problem: Gastritis Discharge Goals Goal(s): Decrease discomfort, Learn about illness Activity Recommendations Activity Limitations: per Instructions/Follow-up section . Instructions / Follow-Up Instructions / Follow-Up During your visit with us, you were diagnosed with Gastritis. You had a procedure that showed us your gastritis is mild, which is great news. Because your gastritis is mild, this makes it more likely that the cause is stress. You did not have an ulcer. As mentioned earlier, the most likely cause of your gastritis is related to stress, as it is for most people. There are certain foods high in acid that can temporarily cause worsening of your symptoms, but avoiding these foods will not cure your gastritis. You should eat whatever you are hungry for. To manage the gastritis, you are being discharged with some new medications. Protonix (pantoprazole)--this protects the stomach lining by creating a less acidic environment. Take 1 pill twice daily for two weeks, then take one daily afterwards You can resume phenergan use as you were prior to being admitted to the hospital (once every 6 hours as needed). Remeron (mirtazapine), which we are using mostly to promote your appetite. More appetite= less nausea. We are contacting case management who will look into getting a hospital bed for you at home. You should follow up with your PCP within 1 week of being discharged from the hospital. If your symptoms significantly worsen in the next few days, please return to the ED or call your PCP. Current Hospital Diet Patient's current hospital diet: Regular Diet Discharge Diet Recommended Diet: Regular Diet Procedures Procedures Performed: EGD WITH BX Pending Studies Studies pending at discharge: no Medical Emergencies . Who to Call and When: Medical Emergencies: If at any time you feel your situation is an emergency, please call 911 immediately. . Non-Emergent Contact Non-Emergency issues call your: Primary Care Provider . . "Provider Documentation" section prepared by Pauline Wilson. . VTE Core Measure Inpt VTE Proph given/why not?: Enoxaparin (Lovenox)SQ, SCD's
[2017-04-24] MEDS ORDERED: PRT/20 PO (17:16)
[2017-04-24] MEDS ORDERED: PHN25X PO (17:16)
[2017-04-24] MEDS ORDERED: RMR15 PO (17:16)
[2017-04-24] MEDS ORDERED: ZFRI4 IV (17:16)
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
[2017-04-24] MEDS: ACETAMINOPHEN 325 MG TAB PO PRN (17:36)
[2017-04-24 17:58] VITALS: BP 130/84; PULSE 85; TEMP 36.8; O2SAT 94
[2017-04-24] MEDS ORDERED: ONDA4TAB46 PO (18:20)
[2017-04-24] MEDS: MIRTAZAPINE TAB 15 MG TAB PO SCH (18:42)
== END 2017-04-24 18:49 | disposition home or self-care (01) | DRG 392 ==
LOC: C.EDB 16:00 → C.MED 19:04 → ENRESERV 19:19 → C.MED 04-20 23:18
PROVIDERS: ADMIT Internal Medicine; ATTEND Family Medicine
PROC: 0DB68ZX Excision of Stomach, Via Natural or Artificial Opening Endoscopic, Diagnostic (ICD-10-PCS; principal; 2017-04-21 09:51)
DX: K29.70 Gastritis, unspecified, without bleeding (principal); E86.0 Dehydration; R63.0 Anorexia; R11.2 Nausea with vomiting, unspecified; F32.9 Major depressive disorder, single episode, unspecified; I12.9 Hypertensive chronic kidney disease with stage 1 through stage 4 chronic kidney disease, or unspecified chronic kidney disease; N18.3 Chronic kidney disease, stage 3 (moderate); E83.42 Hypomagnesemia; E87.6 Hypokalemia; F41.9 Anxiety disorder, unspecified; M54.9 Dorsalgia, unspecified; E03.9 Hypothyroidism, unspecified; Z87.19 Personal history of other diseases of the digestive system; Z93.3 Colostomy status; Z79.899 Other long term (current) drug therapy; Z79.82 Long term (current) use of aspirin

== ENCOUNTER 2017-05-29 14:28 | Emergency (ER) | payer OTHER ==
[~2017-05-29] VITALS: Ht 152.4 cm; Wt 53.1 kg
[~2017-05-29 14:28] MED LIST changes: -ASPI81TA25 PO; +ASPI81TA28 PO; +ATV/1 PO; -CHOL1000 PO; +CHOL20007 PO; -CLON0.1D5 TD; +DIPH1TAB PO; -ESCI1TAB9 PO; +FLUT0.15 NAE; -FLUT50SP14 NAE; +LACT1CAP6 PO; -LORA10TA5 PO; -LORA1TAB13 PO; +MULT-1016 PO; -MULT-411 PO; +NITR-5 PO; +ONDA4TAB46 PO; -PANT1TAB48 PO; +PHN25X PO; +POTA99TA PO; +PRT/20 PO; +RMR15 PO; +ZFRI4 IV
[2017-05-29 14:32] VITALS: TEMP 37.2; Ht 152.4 cm; Wt 53.1 kg
[2017-05-29] MEDS ORDERED: SODIUM CHLORIDE 0.9% 1000ML 1,000 ML IV ONE (17:30)
[2017-05-29 17:56] LABS: BASO % 0.4 %; BASO ABS # 0.03 K/uL (0-0.2); COMPLETE YES; EOS % 2.4 %; HEMATOCRIT 42.7 % (37-47); IG% 0.1 %; LYMPH % 21.2 %; MEAN CELL VOLUME 94.5 fL (80-100); MEAN CORPUSCULAR HGB CONC 34.9 g/dl (32-36); MONO % 6.8 %; NEUT % 69.1 %; PLATELET COUNT 235 K/uL (130-400); RED BLOOD COUNT 4.52 M/uL (4.2-5.4); WHITE BLOOD COUNT 7.55 K/uL (4.8-10.8)
--- NOTE | 2017-05-29 18:02 | EMERGENCY ROOM VISIT NOTE ---
History Report prepared by Heriberto: Gilmar Dodson Under the Supervision of: Dr. Rafael Rasheed M.D. First contact with patient: 17:23 Chief Complaint: VOMITING Stated Complaint: SICK, VOMITING Nursing Triage Summary: Pt c/o vomting once this am, nausea, no diarrhea. Has colostomy. Pt c/o "bilateral ear aches off and on for a couple days" Pt visitor states "It's made her real dizzy." Seen last month for the same thing. Dx gastritis and stress. History of Present Illness The patient is an 82 year old female who presents to the Emergency Room with complaints of constant nausea and vomiting for the past couple of days. The patient states that she has been having trouble eating, and she currently has a colostomy due to fecal incontinence. She additionally states that she has been dizzy and having bilateral ear pain. The patient additionally states that something similar happened last month, and she was admitted for a week. The patient denies any history of C Diff, though she has a history of an appendectomy and a cholecystectomy. Source of History: patient Onset: a couple of days ago Position: other (global) Quality: other (nausea and vomiting) Timing: constant Note: Associated symptoms: Bilateral ear pain and dizziness. Review of Systems All systems have been listed, reviewed, and are negative other than those previously mentioned. Please see Additional Medical History Sheet. Past Medical & Surgical Medical Problems: (1) Anorexia (2) Anxiety (3) Depression (4) GERD (gastroesophageal reflux disease) (5) HTN (hypertension) (6) Hypothyroid (7) Intractable nausea and vomiting (8) Pulmonary hypertension Family History Depression Hypertension Social History Smoking Status: Never Smoker Alcohol Use: none Drug Use: none Marital Status: Housing Status: lives with family Occupation Status: retired Current/Historical Medications Scheduled Amlodipine (Norvasc), 5 MG PO DAILY Aspirin (Aspirin Ec), 81 MG PO QAM Cholecalciferol (Vitamin D3), 2,000 UNITS PO QAM Diphenhydramine Hcl (Benadryl Allergy), 25 MG PO HS Fluticasone Propionate (Nasal) (Flonase Allergy Relief), 1 SPRAY [place] BID Lactobacillus (Probiotic), 1 CAP PO QAM Levothyroxine Sodium (Synthroid), 25 MCG PO DAILY Lorazepam (Ativan), 1 MG PO TID Multiple Vitamins W/ Minerals (Multivitamin Women 50+), 1 TAB PO QAM Pantoprazole (Protonix), 20 MG PO DAILY Potassium (Potassium), 99 MG PO QAM Scheduled PRN Ondansetron (Ondansetron Hcl), 4 MG IV Q6H PRN for Nausea Ondansetron Hcl (Zofran), 4 MG PO Q6H PRN for Nausea Promethazine HCl (Promethazine HCl), 25 MG PO Q6H PRN for Nausea or Vomiting Allergies Coded Allergies: Verapamil (Verified Allergy, Severe, "THINGS STARTED TO SHUT DOWN-HEART, B /P TILL GOT TO ER"., 05/29/17) Aspirin (Verified Adverse Reaction, Unknown, GI UPSET, TAKES BABY ASA WITHOUT PROB, 05/29/17) Physical Exam Vital Signs Date Time Temp Pulse Resp B/P (MAP) Pulse Ox O2 Delivery O2 Flow Rate FiO2 05/29/17 20:26 66 16 154/80 96 05/29/17 19:05 71 16 175/88 95 Room Air 05/29/17 14:32 37.2 80 16 132/83 95 Room Air Physical Exam GENERAL: Appears to be in mild distress. Patient awake, alert, oriented x 3. Patient follows commands. Patient does not appear toxic. Patient is adequately hydrated and well-nourished. SKIN: Slightly pale. No erythema, cyanosis or rash HEENT: Normal head, pupils equal, reactive to light and accommodation. Ears normal. Oral cavity and posterior pharynx appear normal. Neck: Without adenopathy, no neck vein distention. LUNGS: Clear to auscultation. No wheezes, no rales, no rhonchi. HEART: No murmurs. No gallops. No rubs ABDOMEN: Colostomy with no stool present. Nontender. No masses, no rebound, no hepatomegaly or splenomegaly. EXTREMITIES: No signs of trauma. No pedal or pretibial edema. No calf or thigh tenderness. NEUROLOGIC: Cranial nerves II-XII within normal limits. No gross motor sensory function deficits. PSYCHIATRIC: the patient is awake alert but anxious. She also appears to be despondent. The patient is not suicidal. Medical Decision & Procedures Laboratory Results 05/29/17 17:39 Red Blood Count 4.52, Mean Corpuscular Volume 94.5, Mean Corpuscular Hemoglobin 33.0, Mean Corpuscular Hemoglobin Concent 34.9, Mean Platelet Volume 9.0, Neutrophils (%) (Auto) 69.1, Lymphocytes (%) (Auto) 21.2, Monocytes (%) (Auto) 6.8, Eosinophils (%) (Auto) 2.4, Basophils (%) (Auto) 0.4, Neutrophils # (Auto) 5.22, Lymphocytes # (Auto) 1.60, Monocytes # (Auto) 0.51, Eosinophils # (Auto) 0.18, Basophils # (Auto) 0.03 05/29/17 17:39 Test 05/29/17 17:39 05/29/17 18:30 White Blood Count 7.55 K/uL (4.8-10.8) Red Blood Count 4.52 M/uL (4.2-5.4) Hemoglobin 14.9 g/dL (12.0-16.0) Hematocrit 42.7 % (37-47) Mean Corpuscular Volume 94.5 fL (80-100) Mean Corpuscular Hemoglobin 33.0 pg (25-34) Mean Corpuscular Hemoglobin Concent 34.9 g/dl (32-36) Platelet Count 235 K/uL (130-400) Mean Platelet Volume 9.0 fL (7.4-10.4) Neutrophils (%) (Auto) 69.1 % Lymphocytes (%) (Auto) 21.2 % Monocytes (%) (Auto) 6.8 % Eosinophils (%) (Auto) 2.4 % Basophils (%) (Auto) 0.4 % Neutrophils # (Auto) 5.22 K/uL (1.4-6.5) Lymphocytes # (Auto) 1.60 K/uL (1.2-3.4) Monocytes # (Auto) 0.51 K/uL (0.11-0.59) Eosinophils # (Auto) 0.18 K/uL (0-0.5) Basophils # (Auto) 0.03 K/uL (0-0.2) RDW Standard Deviation 43.7 fL (36.4-46.3) RDW Coefficient of Variation 12.7 % (11.5-14.5) Immature Granulocyte % (Auto) 0.1 % Immature Granulocyte # (Auto) 0.01 K/uL (0.00-0.02) Anion Gap 6.0 mmol/L (3-11) Est Creatinine Clear Calc Drug Dose 34.7 ml/min Estimated GFR () 67.3 Estimated GFR (Non- 58.0 BUN/Creatinine Ratio 12.4 (10-20) Calcium Level 9.5 mg/dl (8.5-10.1) Magnesium Level 1.7 mg/dl (1.8-2.4) Total Bilirubin 0.5 mg/dl (0.2-1) Aspartate Amino Transf (AST/SGOT) 33 U/L (15-37) Alanine Aminotransferase (ALT/SGPT) 31 U/L (12-78) Alkaline Phosphatase 87 U/L (45-117) Total Protein 8.9 gm/dl (6.4-8.2) Albumin 3.9 gm/dl (3.4-5.0) Globulin 5.0 gm/dl (2.5-4.0) Albumin/Globulin Ratio 0.8 (0.9-2) Lipase 133 U/L (73-393) Thyroid Stimulating Hormone (TSH) 3.560 uIu/ml (0.300-4.500) Urine Color YELLOW Urine Appearance CLEAR (CLEAR) Urine pH 7.0 (4.5-7.5) Urine Specific [place] 1.013 (1.000-1.030) Urine Protein NEG (NEG) Urine Glucose (UA) NEG (NEG) Urine Ketones NEG (NEG) Urine Occult Blood NEG (NEG) Urine Nitrite NEG (NEG) Urine Bilirubin NEG (NEG) Urine Urobilinogen NEG (NEG) Urine Leukocyte Esterase NEG (NEG) Laboratory results as stated above per my review. Medications Administered Medications (Trade) Dose Ordered Sig/Ana Route Start Time Stop Time Status Last Admin Dose Admin Sodium Chloride 1,000 ml @ 1,000 mls/hr Q1H ONCE IV 05/29/17 17:30 05/29/17 18:29 DC 05/29/17 17:46 1,000 MLS/HR Amlodipine Besylate (Norvasc Tab) 5 mg NOW ONCE PO 05/29/17 20:00 05/29/17 20:01 DC 05/29/17 20:02 5 MG ECG Indication: vomiting Rate (beats per minute): 75 Rhythm: normal sinus Findings: no acute ischemic change, no ectopy ED Course 1722: Past medical records reviewed. The patient was evaluated in room A12. A complete history and physical examination was performed. 1730: Sodium Chloride 1000 ml @ 1000 mls/hr IV 1941: I reevaluated the patient, and I talked with her and her . They are worried about the medications, and the patient is anxious about going home, however the patient is still going to go home. The patient is ready for discharge. 2000: Norvasc Tab 5mg PO Medical Decision Nurses notes reviewed. Medical history sheet reviewed. Differential diagnosis includes but is not limited to: Dehydration, metabolic disorder, diverticulitis , C Diff, acute viral gastroenteritis. Multiple labs and urinalysis were obtained. Please see above. The patient's magnesium is minimally low. Her potassium is within normal range. The rest of her labs are unremarkable. The patient was able to drink while here. The patient appears extremely anxious and depressed. I believe that you preferred to be admitted but I do not have any clinical data to support admission. I discussed care with the patient and with her and attempted to reassure them. She is to follow-up with the family physician in 4 days. The patient was given Norvasc here because she states she vomited up her morning dose. Medication Reconcilliation Current Medication List: was personally reviewed by me Blood Pressure Screening Patient's blood pressure: Elevated blood pressure Impression Primary Impression: Vomiting Additional Impressions: Anxiety Depression Scribe Attestation The scribe's documentation has been prepared under my direction and personally reviewed by me in its entirety. I confirm that the note above accurately reflects all work, treatment, procedures, and medical decision making performed by me. Departure Information Dispostion Home / Self-Care Referrals No Doctor, Assigned (PCP) Forms HOME CARE DOCUMENTATION FORM, IMPORTANT VISIT INFORMATION Patient Instructions My [facility] Additional Instructions Follow up with your family physician on Friday. Take Phenergan or Zofran as needed for nausea. Continue all of your regular medications as prescribed. Problem Qualifiers
[2017-05-29 18:14] LABS: CREATININE 0.93 mg/dl (0.60-1.20)
[2017-05-29 18:15] LABS: BUN/CREATININE RATIO 12.4 (10-20); CALCIUM 9.5 mg/dl (8.5-10.1); MAGNESIUM 1.7 mg/dl (1.8-2.4); POTASSIUM 3.6 mmol/L (3.5-5.1)
[2017-05-29 18:25] LABS: ALB/GLOB RATIO 0.8 (0.9-2); THYROID STIMULATING HORMONE 3.56 uIu/ml (0.300-4.500)
[2017-05-29 19:01] LABS: URINE APPEARANCE CLEAR (CLEAR); URINE BILIRUBIN NEG (NEG); URINE COLOR YELLOW; URINE NITRITE NEG (NEG); URINE SPECIFIC GRAVITY 1.013 (1.000-1.030); UROBILINOGEN NEG (NEG); ZZUR CULT IF INDIC CLEAN CATCH NO
[2017-05-29 19:03] LABS: MANUAL MICROSCOPIC REQUIRED? NO; REVIEW REQ? NO
[2017-05-29] MEDS ORDERED: AMLODIPINE BESYLATE 5 MG TAB PO ONE (20:00)
[2017-05-29 20:26] VITALS: BP 154/80; PULSE 66; O2SAT 96
== END 2017-05-29 20:26 | disposition home or self-care (01) ==
LOC: C.EDB 14:30 → C.EDA 20:26
DX: R11.2 Nausea with vomiting, unspecified (principal); F41.9 Anxiety disorder, unspecified; F32.9 Major depressive disorder, single episode, unspecified; I10 Essential (primary) hypertension; I27.2 Other secondary pulmonary hypertension; E03.9 Hypothyroidism, unspecified; R42 Dizziness and giddiness; K21.9 Gastro-esophageal reflux disease without esophagitis; Z93.3 Colostomy status; Z90.49 Acquired absence of other specified parts of digestive tract; Z90.89 Acquired absence of other organs; Z81.8 Family history of other mental and behavioral disorders; Z82.49 Family history of ischemic heart disease and other diseases of the circulatory system; Z79.82 Long term (current) use of aspirin; Z79.899 Other long term (current) drug therapy

== ENCOUNTER 2017-06-17 11:59 | Emergency (ER) | payer OTHER ==
[~2017-06-17] VITALS: Ht 152.4 cm; Wt 51.0 kg
[~2017-06-17 11:59] MED LIST changes: -NITR-5 PO; -RMR15 PO
[2017-06-17 12:18] VITALS: TEMP 36.9; Ht 152.4 cm; Wt 51.0 kg
[2017-06-17] MEDS ORDERED: SODIUM CHLORIDE 0.9% 1000ML 1,000 ML IV ONE (14:14)
[2017-06-17] MEDS ORDERED: SODIUM CHLORIDE 0.9% 1000ML 1,000 ML IV STA (14:14)
[2017-06-17] MEDS ORDERED: ONDANSETRON INJ 2 MG/ML 2 ML VIAL IV STA ×2 (14:14→17:26)
--- NOTE | 2017-06-17 14:18 | EMERGENCY ROOM VISIT NOTE ---
History Report prepared by Heriberto: Hussain Pascal Under the Supervision of: Dr. Tab Gross M.D. First contact with patient: 14:06 Chief Complaint: VOMITING Stated Complaint: SEVERE VOMITING, CAN'T EAT Nursing Triage Summary: n/v adn left flank pain for the past couple days was seen here in aug History of Present Illness The patient is an 82 year old female who presents to the Emergency Room with complaints of worsening vomiting that started a couple days ago. She says that she has been having issues with vomiting and an inability to keep food down for almost 2 months now. She was seen here in April for 6 days, and was diagnosed with gastritis. The patient states that when she was discharged, she started to go downhill again, and for the past couple days, she has had worsening nausea and vomiting, and whenever she eats, she vomits. She notes that she has not been eating, and she has been losing weight. She adds that she has had intermittent fevers at night, and she has been having left flank pain that wraps towards her back. The patient says that sometimes she has pain with breathing. The patient notes that currently, she has a terrible headache. She states that she has nothing in her stomach, so she has only been dry heaving today. The patient's daughter says that the patient has a colostomy for fecal incontinence, and has a history of IBS. The patient denies any chest pain or shortness of breath. She says that she had C. difficile a long time ago. The patent adds that she has been very stressed recently due to her health issues. She denies any loss of consciousness, leg pain, or leg swelling. The patient is not on any blood thinners. She denies any recent ostomy issues. She does not drink alcohol or smoke cigarettes. Source of History: patient, family Onset: A couple days ago Position: other (global - vomiting) Symptom Intensity: cannot keep any food down Timing: worsening Modifying Factors (Worsening): eating Associated Symptoms: + fevers, + headache, + back pain, No LOC Note: Associated symptoms: Left flank pain wrapping into back. Dry heaving today. Losing weight. Denies leg pain or leg swelling. Review of Systems See HPI for pertinent positives & negatives. A total of 10 systems reviewed and were otherwise negative. Past Medical & Surgical Medical Problems: (1) Anorexia (2) Anxiety (3) Depression (4) GERD (gastroesophageal reflux disease) (5) HTN (hypertension) (6) Hypothyroid (7) Intractable nausea and vomiting (8) Pulmonary hypertension Old medical records were reviewed. Nurse's notes were reviewed and I agree with. Family History Depression Hypertension Social History Smoking Status: Never Smoker Alcohol Use: none Drug Use: none Marital Status: Housing Status: lives with family Occupation Status: retired Current/Historical Medications Scheduled Amlodipine (Norvasc), 5 MG PO DAILY Aspirin (Aspirin Ec), 81 MG PO QAM Levothyroxine Sodium (Synthroid), 25 MCG PO DAILY Lorazepam (Ativan), 1 MG PO TID Pantoprazole (Protonix), 40 MG PO DAILY Potassium (Potassium), 99 MG PO QAM Scheduled PRN Diphenhydramine Hcl (Benadryl Allergy), 25 MG PO HS PRN for UNDECIDED Promethazine Hcl (Phenergan), 25 MG PO Q4H PRN for Nausea Allergies Coded Allergies: Verapamil (Verified Allergy, Severe, "THINGS STARTED TO SHUT DOWN-HEART, B /P TILL GOT TO ER"., 05/29/17) Aspirin (Verified Adverse Reaction, Unknown, GI UPSET, TAKES BABY ASA WITHOUT PROB, 05/29/17) Physical Exam Vital Signs Date Time Temp Pulse Resp B/P (MAP) Pulse Ox O2 Delivery O2 Flow Rate FiO2 06/17/17 20:49 84 20 155/94 95 06/17/17 17:57 72 18 147/82 98 Room Air 06/17/17 16:30 77 18 159/69 97 06/17/17 14:33 76 19 150/80 96 06/17/17 12:18 36.9 89 18 127/77 96 Physical Exam General: Well developed well nourished non ill-appearing older female in no acute distress, breathing comfortably on room air. Normal speech HEENT: Normal cephalic atraumatic. Pupils are equal round and reactive to light. Extraocular movements are intact. Oropharynx is pink with moist mucous membranes. No swelling of the mouth lips or tongue. Neck: Supple with a midline trachea. No meningeal signs or stiffness, no JVD or bruits. No Stridor. Chest: Clear to auscultation bilaterally. No wheezes or rhonchi. No increased work of breathing. Heart: regular rate and rhythm. Abdomen: Ostomy in lower abdomen. Soft nontender, nondistended without rebound guarding or rigidity. Extremities: No cyanosis clubbing or edema. No calf tenderness or assymetry Spine/Back. Non tender to palpation. No CVA tenderness Skin: Good turgor without rashes. Neurologic exam: Cranial nerves two through 12 are intact. Motor and sensation are intact and symmetrical throughout. Medical Decision & Procedures ER Provider Diagnostic Interpretation: X-ray results as stated below per interpretation by me and the radiologist: CHEST ONE VIEW PORTABLE HISTORY: Atypical CHEST PAIN COMPARISON: Chest 04/19/2017 FINDINGS: No pneumothorax. Trace left pleural effusion, unchanged. No new focal lung consolidations. Scattered pulmonary nodules are again noted and have increased in size. Dominant nodule within the right upper lobe measures 2.2 cm, previously measuring 1.7 cm. No evidence for pulmonary edema. Tortuous thoracic aorta. Cholecystectomy. IMPRESSION: Mild bilateral pulmonary nodules are again noted and appear to have slightly increased in size. No new focal lung consolidations. Trace left pleural effusion persists. Electronically signed by: Yaya Whittington M.D. 06/17/2017 3:08 PM Dictated Date/Time: 06/17/2017 2:58 PM Laboratory Results 06/17/17 14:10 Red Blood Count 4.55, Mean Corpuscular Volume 92.3, Mean Corpuscular Hemoglobin 32.5, Mean Corpuscular Hemoglobin Concent 35.2, Mean Platelet Volume 8.9, Neutrophils (%) (Auto) 74.7, Lymphocytes (%) (Auto) 17.6, Monocytes (%) (Auto) 6.1, Eosinophils (%) (Auto) 0.7, Basophils (%) (Auto) 0.6, Neutrophils # (Auto) 6.59, Lymphocytes # (Auto) 1.55, Monocytes # (Auto) 0.54, Eosinophils # (Auto) 0.06, Basophils # (Auto) 0.05 06/17/17 14:10 06/17/17 15:55 Test 06/17/17 14:10 06/17/17 15:05 06/17/17 15:55 White Blood Count 8.82 K/uL (4.8-10.8) Red Blood Count 4.55 M/uL (4.2-5.4) Hemoglobin 14.8 g/dL (12.0-16.0) Hematocrit 42.0 % (37-47) Mean Corpuscular Volume 92.3 fL (80-100) Mean Corpuscular Hemoglobin 32.5 pg (25-34) Mean Corpuscular Hemoglobin Concent 35.2 g/dl (32-36) Platelet Count 275 K/uL (130-400) Mean Platelet Volume 8.9 fL (7.4-10.4) Neutrophils (%) (Auto) 74.7 % Lymphocytes (%) (Auto) 17.6 % Monocytes (%) (Auto) 6.1 % Eosinophils (%) (Auto) 0.7 % Basophils (%) (Auto) 0.6 % Neutrophils # (Auto) 6.59 K/uL (1.4-6.5) Lymphocytes # (Auto) 1.55 K/uL (1.2-3.4) Monocytes # (Auto) 0.54 K/uL (0.11-0.59) Eosinophils # (Auto) 0.06 K/uL (0-0.5) Basophils # (Auto) 0.05 K/uL (0-0.2) RDW Standard Deviation 43.0 fL (36.4-46.3) RDW Coefficient of Variation 12.8 % (11.5-14.5) Immature Granulocyte % (Auto) 0.3 % Immature Granulocyte # (Auto) 0.03 K/uL (0.00-0.02) Anion Gap 10.0 mmol/L (3-11) Est Creatinine Clear Calc Drug Dose 32.6 ml/min Estimated GFR () 62.4 Estimated GFR (Non- 53.8 BUN/Creatinine Ratio 11.8 (10-20) Calcium Level 9.6 mg/dl (8.5-10.1) Total Bilirubin 0.6 mg/dl (0.2-1) Alanine Aminotransferase (ALT/SGPT) 25 U/L (12-78) Alkaline Phosphatase 84 U/L (45-117) Troponin I < 0.015 ng/ml (0-0.045) Total Protein 8.6 gm/dl (6.4-8.2) Albumin 3.9 gm/dl (3.4-5.0) Lipase 118 U/L (73-393) Thyroid Stimulating Hormone (TSH) 1.840 uIu/ml (0.300-4.500) Urine Color YELLOW Urine Appearance CLEAR (CLEAR) Urine pH 8.0 (4.5-7.5) Urine Specific [place] 1.011 (1.000-1.030) Urine Protein NEG (NEG) Urine Glucose (UA) NEG (NEG) Urine Ketones NEG (NEG) Urine Occult Blood NEG (NEG) Urine Nitrite NEG (NEG) Urine Bilirubin NEG (NEG) Urine Urobilinogen NEG (NEG) Urine Leukocyte Esterase NEG (NEG) Magnesium Level 1.8 mg/dl (1.8-2.4) Direct Bilirubin mg/dl (0-0.2) Aspartate Amino Transf (AST/SGOT) 29 U/L (15-37) Laboratory studies as stated above per my review. Medications Administered Medications (Trade) Dose Ordered Sig/Ana Route Start Time Stop Time Status Last Admin Dose Admin Sodium Chloride 1,000 ml @ 999 mls/hr Q1H1M STAT IV 06/17/17 14:14 06/17/17 15:14 DC 06/17/17 14:35 999 MLS/HR Sodium Chloride 1,000 ml @ 150 mls/hr Q6H40M ONCE IV 06/17/17 14:14 06/17/17 20:53 DC 06/17/17 14:14 150 MLS/HR Ondansetron HCl (Zofran Inj) 4 mg NOW STAT IV 06/17/17 14:14 06/17/17 14:16 DC 06/17/17 14:35 4 MG Ondansetron HCl (Zofran Inj) 4 mg NOW STAT IV 06/17/17 17:26 06/17/17 17:27 DC 06/17/17 17:55 4 MG ECG Indication: vomiting Rate (beats per minute): 79 Rhythm: normal sinus Findings: no acute ischemic change, no ectopy, other (nonspecific ST abnormality) Change: no significant change (compared to May 29 2017) ED Course 1408: Past medical records reviewed. The patient was evaluated in room C12B, and a complete history and physical examination were performed. 1414: Ordered Zofran Inj 4 mg IV, NSS 1000 ml @ 150 mls/hr IV, NSS 1000 ml @ 999 mls/hr IV. 1532: I reevaluated the patient and she is in the bathroom. Her family members say that the patient does not feel much better. 1608: I reevaluated the patient and she made it very clear that she does not want to go home. 1727: I reevaluated the patient and she is still nauseated. The patient verbally expressed understanding and agreement of the treatment plan. The patient will be evaluated for further treatment. 1808: I discussed the patient with Dr. Anant ZARATE special librarian - he will evaluate the patient for further treatment. 1950: Upon reevaluation, the patient is resting. I discussed the results and treatment plan with her. She verbalized agreement of the treatment plan. The patient was discharged home. Medical Decision Differentials include but are not limited to: dehydration, electrolyte or metabolic abnormality, gastritis, anxiety, cardiac disease, infection, colitis. This patient comes in as described above. She was placed in room C 11 on a electronic device monitor. She's been vomiting. This is an ongoing issue for the last couple months. She was hospitalized for this and was diagnosed with gastritis and anxiety. She has a lot of stress at home. On exam, her abdomen is benign. IV access established was hydrated with IVnormal saline. She was given Zofran 4 mg IV. EKG and multiple blood tests was obtained as well as a chest x- ray. She was reassessed frequently. She was given additional Zofran she has no acute electrode or metabolic abnormality of her abdomen is completely benign she had a CAT scan of her similar symptoms about 2 months ago chest x-ray was unremarkable EKG was unremarkable and there is nothing to suggest acute cardiac disease. She's had nothing suggest acute liver, gallbladder, pancreas disease. I reviewed her old records and she was hospitalized and diagnosed with gastritis and anxiety. I did the patient was concerned about going home. I did consult Dr. Stone to see the patient and he does not feel she needs to be admitted and she should continue use her current medications follow-up with her doctor tomorrow. She did eat a turkey sandwich here and is tolerating food she will be discharged home and return if: increasing pain, worsening symptoms, fever chills, any new problems or concerns. Medication Reconcilliation Current Medication List: was personally reviewed by me Blood Pressure Screening Patient's blood pressure: Normal blood pressure Consults Time Called: -- Consulting Physician: Dr. Anant ZARATE special librarian Returned Call: 1807 (in person) I discussed the patient with Dr. [place] [facility] [place] - he will evaluate the patient for further treatment. Impression Primary Impression: Intractable nausea and vomiting Scribe Attestation The scribe's documentation has been prepared under my direction and personally reviewed by me in its entirety. I confirm that the note above accurately reflects all work, treatment, procedures, and medical decision making performed by me. Departure Information Dispostion Home / Self-Care Referrals No Doctor, Assigned (PCP) Twila Denton M.D. Patient Instructions My [facility] Additional Instructions Rest. Drink plenty of fluids. Mild diet. Continue your current medications Follow-up with your doctor tomorrow Return if: worsening of symptoms, increasing pain, not tolerating fluids, any new problems or concerns
[2017-06-17 14:39] LABS: BASO % 0.6 %; BASO ABS # 0.05 K/uL (0-0.2); COMPLETE YES; EOS % 0.7 %; IG% 0.3 %; LYMPH % 17.6 %; LYMPH ABS # 1.55 K/uL (1.2-3.4); MEAN CELL VOLUME 92.3 fL (80-100); MEAN CORPUSCULAR HEMOGLOBIN 32.5 pg (25-34); MEAN CORPUSCULAR HGB CONC 35.2 g/dl (32-36); MEAN PLATELET VOLUME 8.9 fL (7.4-10.4); MONO % 6.1 %; NEUT % 74.7 %; PLATELET COUNT 275 K/uL (130-400); RED BLOOD COUNT 4.55 M/uL (4.2-5.4); WHITE BLOOD COUNT 8.82 K/uL (4.8-10.8)
[2017-06-17 14:59] LABS: ALT/SGPT 25 U/L (12-78); BLOOD UREA NITROGEN 12 mg/dl (7-18); BUN/CREATININE RATIO 11.8 (10-20); CALCIUM 9.6 mg/dl (8.5-10.1); CARBON DIOXIDE 26 mmol/L (21-32); CHLORIDE 104 mmol/L (98-107); CREATININE 0.99 mg/dl (0.60-1.20); GLUCOSE 96 mg/dl (70-99); SODIUM 140 mmol/L (136-145)
[2017-06-17] MEDS ORDERED: PRT/20 PO (15:02)
[2017-06-17] MEDS ORDERED: PROM25TA9 PO (15:02)
[2017-06-17 15:06] LABS: ALKALINE PHOSPHATASE 84 U/L (45-117)
--- NOTE | 2017-06-17 15:59 | DIAGNOSTIC IMAGING REPORT ---
CHEST ONE VIEW PORTABLE HISTORY: Atypical CHEST PAIN COMPARISON: Chest 04/19/2017. FINDINGS: No pneumothorax. Trace left pleural effusion, unchanged. No new focal lung consolidations. Scattered pulmonary nodules are again noted and have increased in size. Dominant nodule within the right upper lobe measures 2.2 cm, previously measuring 1.7 cm. No evidence for pulmonary edema. Tortuous thoracic aorta. Cholecystectomy. IMPRESSION: Mild bilateral pulmonary nodules are again noted and appear to have slightly increased in size. No new focal lung consolidations. Trace left pleural effusion persists. Electronically signed by: Yaya Whittington M.D. 06/17/2017 3:08 PM Dictated Date/Time: 06/17/2017 2:58 PM
[2017-06-17 16:49] LABS: AST/SGOT 29 U/L (15-37); MAGNESIUM 1.8 mg/dl (1.8-2.4); POTASSIUM 3.8 mmol/L (3.5-5.1)
[2017-06-17 17:03] LABS: URINE APPEARANCE CLEAR (CLEAR); URINE BILIRUBIN NEG (NEG); URINE COLOR YELLOW; URINE NITRITE NEG (NEG); URINE SPECIFIC GRAVITY 1.011 (1.000-1.030); UROBILINOGEN NEG (NEG)
[2017-06-17 17:05] LABS: MANUAL MICROSCOPIC REQUIRED? NO; REVIEW REQ? NO
--- NOTE | 2017-06-17 19:05 | History and Physical ---
History & Physical Date & Time of Service: Jun 17, 2017 at 18:59 Chief Complaint: Severe Vomiting, Can't Eat Primary Care Physician: Twila Denton M.D. History of Present Illness Source: patient 82 y/o F Hx anxiety, HTN, GERD, hypothyroidism. Recent admission with intractable N/V, dehydration. Pt had a normal endoscopy during admission . She has had symptoms of nausea, poor PO intake for over 3 months per recent records. She presents today with similar complaints stating that she is unable to tolerate any PO intake. She complains additionally of weakness. She is able to ambulate independently. Initial labs are not consistent with dehydration and do not display any abnormalities. The pt states that she was at her primary MDs office the previous week with similar complaints. No medication changes or additional treatments were effected. Past Medical/Surgical History Medical Problems: (1) Anxiety Status: Chronic (2) Depression Status: Chronic (3) GERD (gastroesophageal reflux disease) Status: Chronic (4) HTN (hypertension) Status: Chronic (5) Hypothyroid Status: Chronic (6) Pulmonary hypertension Status: Chronic Family History Depression Hypertension Social History Smoking Status: Never Smoker Drug Use: none Marital Status: Housing status: lives with family Occupational Status: retired Immunizations History of Influenza Vaccine: Unknown Influenza Vaccine Date: Jul 25, 2013 History of Tetanus Vaccine?: Unknown History of Pneumococcal: Unknown Pneumococcal Date: Aug 26, 2012 History of Hepatitis B Vaccine: Unknown Multi-Drug Resistant Organisms History of MDRO: No Allergies Coded Allergies: Verapamil (Verified Allergy, Severe, "THINGS STARTED TO SHUT DOWN-HEART, B /P TILL GOT TO ER"., 05/29/17) Aspirin (Verified Adverse Reaction, Unknown, GI UPSET, TAKES BABY ASA WITHOUT PROB, 05/29/17) Home Medications Scheduled Amlodipine (Norvasc), 5 MG PO DAILY Aspirin (Aspirin Ec), 81 MG PO QAM Levothyroxine Sodium (Synthroid), 25 MCG PO DAILY Lorazepam (Ativan), 1 MG PO TID Pantoprazole (Protonix), 40 MG PO DAILY Potassium (Potassium), 99 MG PO QAM Scheduled PRN Diphenhydramine Hcl (Benadryl Allergy), 25 MG PO HS PRN for UNDECIDED Promethazine Hcl (Phenergan), 25 MG PO Q4H PRN for Nausea Review of Systems Constitutional: + weakness, No fever, No chills, No sweats Eyes: No worsening of vision ENT: No hearing loss, No unusual epistaxis, No nasal symptoms Respiratory: No cough, No wheezing Cardiovascular: No chest pain Abdomen: + nausea, + vomiting, No pain Musculoskeletal: No joint pain Genitourinary - Female: No dysuria, No urinary frequency, No urinary urgency Neurologic: No memory loss, No paralysis, No weakness Psychiatric: + depression symptoms Endocrine: + fatigue Hematologic / Lymphatic: No abnormal bleeding/bruising Integumentary: No rash Allergic / Immunologic: No environmental allergies Physical Exam Vital Signs Date Time Temp Pulse Resp B/P (MAP) Pulse Ox O2 Delivery O2 Flow Rate FiO2 06/17/17 17:57 72 18 147/82 98 Room Air 06/17/17 16:30 77 18 159/69 97 06/17/17 14:33 76 19 150/80 96 06/17/17 12:18 36.9 89 18 127/77 96 General Appearance: + pertinent finding (Elderly female with depressed affect - in no distress) Head: normocephalic Eyes: normal inspection, EOMI ENT: normal ENT inspection, pharynx normal Neck: supple, no JVD Respiratory/Chest: chest non-tender, lungs clear, no accessory muscle use Cardiovascular: regular rate, rhythm, no edema, no gallop Abdomen/GI: normal bowel sounds, non tender, soft, + pertinent finding ( Colostomy bag present - no surrounding inflammation or ) Back: normal inspection, no CVA tenderness, no muscle spasm, normal range of motion Extremities/Musculoskelatal: normal inspection, no calf tenderness, normal capillary refill, no pedal edema, normal range of motion Neurologic/Psych: importer or exporter II-XII nml as tested, no motor/sensory deficits, alert, normal mood/affect, normal reflexes, oriented x 3 Skin: normal color, warm/dry Diagnostics Laboratory Results Results Past 24 Hours Test 06/17/17 14:10 06/17/17 15:05 06/17/17 15:55 Range/Units White Blood Count 8.82 4.8-10.8 K/uL Red Blood Count 4.55 4.2-5.4 M/uL Hemoglobin 14.8 12.0-16.0 g/dL Hematocrit 42.0 37-47 % Mean Corpuscular Volume 92.3 80-100 fL Mean Corpuscular Hemoglobin 32.5 25-34 pg Mean Corpuscular Hemoglobin Concent 35.2 32-36 g/dl Platelet Count 275 130-400 K/uL Mean Platelet Volume 8.9 7.4-10.4 fL Neutrophils (%) (Auto) 74.7 % Lymphocytes (%) (Auto) 17.6 % Monocytes (%) (Auto) 6.1 % Eosinophils (%) (Auto) 0.7 % Basophils (%) (Auto) 0.6 % Neutrophils # (Auto) 6.59 1.4-6.5 K/uL Lymphocytes # (Auto) 1.55 1.2-3.4 K/uL Monocytes # (Auto) 0.54 0.11-0.59 K/uL Eosinophils # (Auto) 0.06 0-0.5 K/uL Basophils # (Auto) 0.05 0-0.2 K/uL RDW Standard Deviation 43.0 36.4-46.3 fL RDW Coefficient of Variation 12.8 11.5-14.5 % Immature Granulocyte % (Auto) 0.3 % Immature Granulocyte # (Auto) 0.03 0.00-0.02 K/uL Sodium Level 140 136-145 mmol/L Potassium Level 3.8 3.5-5.1 mmol/L Chloride Level 104 98-107 mmol/L Carbon Dioxide Level 26 21-32 mmol/L Anion Gap 10.0 3-11 mmol/L Blood Urea Nitrogen 12 7-18 mg/dl Creatinine 0.99 0.60-1.20 mg/dl Est Creatinine Clear Calc Drug Dose 32.6 ml/min Estimated GFR () 62.4 Estimated GFR (Non- 53.8 BUN/Creatinine Ratio 11.8 10-20 Random Glucose 96 70-99 mg/dl Calcium Level 9.6 8.5-10.1 mg/dl Magnesium Level 1.8 1.8-2.4 mg/dl Total Bilirubin 0.6 0.2-1 mg/dl Direct Bilirubin 0-0.2 mg/dl Aspartate Amino Transf (AST/SGOT) 29 15-37 U/L Alanine Aminotransferase (ALT/SGPT) 25 12-78 U/L Alkaline Phosphatase 84 45-117 U/L Troponin I < 0.015 0-0.045 ng/ml Total Protein 8.6 6.4-8.2 gm/dl Albumin 3.9 3.4-5.0 gm/dl Lipase 118 73-393 U/L Thyroid Stimulating Hormone (TSH) 1.840 0.300-4.500 uIu/ml Urine Color YELLOW Urine Appearance CLEAR CLEAR Urine pH 8.0 4.5-7.5 Urine Specific [place] 1.011 1.000-1.030 Urine Protein NEG NEG Urine Glucose (UA) NEG NEG Urine Ketones NEG NEG Urine Occult Blood NEG NEG Urine Nitrite NEG NEG Urine Bilirubin NEG NEG Urine Urobilinogen NEG NEG Urine Leukocyte Esterase NEG NEG Microbiology Results 06/17/17 Urine Culture, Received Pending Impression Assessment and Plan 82 y/o F Hx anxiety, HTN, GERD, hypothyroidism. Recent admission with intractable N/V, dehydration. Pt had a normal endoscopy during admission . She has had symptoms of nausea, poor PO intake for over 3 months per recent records. She presents today with similar complaints stating that she is unable to tolerate any PO intake. She complains additionally of weakness. She is able to ambulate independently. Initial labs are not consistent with dehydration and do not display any abnormalities. The pt states that she was at her primary MDs office the previous week with similar complaints. No medication changes or additional treatments were effected. 1) Nausea - poor cesia - states occasional vomiting. The pt remained in the hospital for an extended period following her previous admission. It does not appear that she was entirely asymptomatic at discharge and it was thought that there was a component of anxiety contributing to her nausea. The pt does not currently exhibit any acute abnormalities and her symptoms have been present for a few months at least. Her colostomy is functioning well and an abdominal exam is benign. We would recommend some IVF, a food trial and likely DC for outpt f/u with GI as her symptoms are seemingly chronic. Cont Phenergan PRN - a suppository may be helpful. 2) HTN - Cont Norvasc 3) Anxiety - cont PRN Ativan - recommend close f/u with primary MD Please note that the above is an ER outpt consult. The pt was given a food trial - if she experiences vomiting in the ER we would strongly consider admission Level of Care Med/Surg Resuscitation Status FULL RESUSCITATION VTE Prophylaxis Given or contraindicated: Unfractionated heparin SQ
[2017-06-17 20:49] VITALS: BP 155/94; PULSE 84; O2SAT 95
== END 2017-06-17 21:25 | disposition home or self-care (01) ==
LOC: C.EDB 12:00 → C.EDC 21:25
DX: R11.2 Nausea with vomiting, unspecified (principal); Z93.3 Colostomy status; K58.9 Irritable bowel syndrome, unspecified; F41.9 Anxiety disorder, unspecified; F32.9 Major depressive disorder, single episode, unspecified; K21.9 Gastro-esophageal reflux disease without esophagitis; I10 Essential (primary) hypertension; E03.9 Hypothyroidism, unspecified; I27.2 Other secondary pulmonary hypertension; Z82.49 Family history of ischemic heart disease and other diseases of the circulatory system; Z81.8 Family history of other mental and behavioral disorders; Z79.82 Long term (current) use of aspirin; Z79.899 Other long term (current) drug therapy

== ENCOUNTER 2021-10-16 09:58 | Inpatient (IN) ==
[2021-10-16] MEDS ORDERED: ONDANSETRON INJ 2 MG/ML 2 ML VIAL IV STA (10:31)
[2021-10-16] MEDS ORDERED: MoRPHine SULFATE 2 MG/ML CARP IV STA ×2 (10:31→15:09)
[2021-10-16] MEDS ORDERED: SODIUM CHLORIDE 0.9% 1000ML 1,000 ML IV STA (10:31)
--- NOTE | 2021-10-16 10:54 | Emergency Department Note ---
Impression & Plan Partial small bowel obstruction, Abdominal pain, epigastric, Leukocytosis ED Provider Note INFORMANT: Patient ED PROVIDER(S): Sylvain Benson MD CHIEF COMPLAINT: Abdominal pain PLAN: Disposition: Admitted Condition: Good Outpatient prescription management: none Referral: None MEDICAL DECISION MAKING: Patient presented emergency room. Prior work-up reviewed. She was uncomfortable and was treated with morphine and Zofran. She did feel better with this. She was prepped for CT imaging with IV and oral contrast. CBC showed a mild leukocytosis which was new from prior. Laboratory testing was otherwise unremarkable. The patient underwent CT imaging and was found to have a partial small bowel obstruction. Patient requested her routine Ativan dosing. She was given a dose of IV Ativan. She did request additional pain medication. She was given 2 mg of IV morphine. Covid testing was performed and negative. Further management in the hospital will be necessary. Consultation was made with the [facility] service, Dr. [place]. Case was discussed. Patient was admitted for further management. Triage Nursing notes reviewed and agree them. Vital Signs: reviewed and remarkable for no significant abnormalities Differential diagnosis: Complication of hiatal hernia, biliary pathology, appendicitis, ovarian cyst, ovarian torsion, ectopic , TOA, PID, infections, diverticulitis, UTI, obstruction, mesenteric ischemia, aortic pathology, inflammatory bowel disease, renal colic, PUD, pancreatitis, hernia, volvulus, constipation, as well as other pathologies. Diagnostics interpreted by me: ECG: Twelve-lead ECG reveals a sinus bradycardia with sinus arrhythmia first- degree AV block at 49 bpm. Septal Q waves. No ST elevation or depression. Cardiac Monitoring: Cardiac monitoring ordered by me: The patient was placed on continuous cardiac monitoring and observed. It revealed a normal sinus rhythm at 69 beats per minute without ectopy or evidence of dysrhythmia. Imaging studies: CT scan as above. P SBO. I refer you to the EMR for further details. HPI: The patient is a 86 year old female who presents to the Emergency Room with complaints of epigastric abdominal pain. This started about 3 days ago and is recurrent. The patient was in the ER on the second and had a work-up performed. No etiology of her pain was found. She was feeling better and then the pain recurred last night. She states that it was severe and radiated to her back. S he was unable to sleep. She did have some relief with belching. She did not take any medication for this. Patient does have a history of cholecystectomy, hiatal hernia, and colostomy. Current pain is rated as 10/10. Pt denies LOC, headache, fevers, chills, diaphoresis, visual changes, neck pain, chest pain, breathing difficulties, nausea, vomiting, melena, hematochezia, urinary symptoms, numbness, weakness, lymphadenopathy, rash, or other complaints. ROS: See above HPI for pertinent positives & negatives. A total of 10 systems reviewed and were otherwise negative. PAST MEDICAL HISTORY:See Below , GERD, hypertension, hypothyroidism PAST SURGICAL HISTORY:See Below, colostomy FAMILY HISTORY:See Below SOCIAL HISTORY:See Below, non-smoker HOME MEDICATIONS:See Below ALLERGIES:See Below VITALS:See Below PHYSICAL EXAMINATION: GENERAL: Awake, alert, uncomfortable-appearing, in no distress HENT: Normocephalic, atraumatic. Oropharynx unremarkable. EYES: Normal conjunctiva. Sclera non-icteric. NECK: Inspection normal. Non-tender. Supple. No nuchal rigidity. FROM. No masses. RESPIRATORY: Clear to auscultation. No wheezes. No rales. Normal respiratory effort. CARDIAC: Normal rate. Normal rhythm. No murmurs. No rubs. Extremities warm and well perfused. Pulses equal. No JVD. GI: Soft, non-distended. Epigastric Tenderness to palpation. No rebound or guarding. No masses. RECTAL: Deferred. MUSCULOSKELETAL: Atraumatic. Chest examination reveals no tenderness. The back is symmetrical on inspection without obvious abnormality. There is no CVA tenderness to palpation. No joint edema. LOWER EXTREMITIES: Calves are equal size bilaterally and non-tender. No edema. No discoloration. NEURO: Normal sensorium. No sensory or motor deficits noted. SKIN: No rash or jaundice noted. Sylvain Benson MD Past Med/Surg History Medical History Anxiety Chronic back pain PAIN TO BOTH LEGS Chronic nausea Colostomy in place Depression GERD (gastroesophageal reflux disease) History of palpitations "skips beats" Hypertension Lung nodules previously biopsied - benign Migraine Osteoarthritis Poor historian Pulmonary embolism 4-5 years ago - asymptomatic - incidental finding - treated w/ blood thinners x 6 months, cause? Trouble swallowing CERTAIN FOODS WILL STICK WHEN SWALLOWING Weight loss 30+ lb weight loss in lst 6 months Surgical History History of bronchoscopy History of colonoscopy History of colostomy 10 -12years - placed b/c of incontinence (cause??) History of esophagogastroduodenoscopy (EGD) w/ dilatation History of hernia repair History of Lloyd fundoplication History of surgery left elbow Hx of bladder repair surgery FOR SUPPORT Hx of cholecystectomy Hx of thyroidectomy PARTIAL Hx of tonsillectomy Nausea and vomiting after administration of anesthetic agent S/P ANKIT-BSO HX Family History Mother Hypertension Cancer Father Cancer Other No family history of adverse response to anesthesia No family history of bleeding disorder Social History Smoking Status: Never smoker Second Hand Exposure: No; Hx Alcohol Use: No Hx Substance Use: No Preferred Language: Hebrew Communication Ability: Effective 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 aspirin AdvReac Unknown GI UPSET, Verified 10/16/21 11:45 TAKES BABY ASA WITHOUT PROB Home Meds Home Medications Medication Instructions Recorded Confirmed amlodipine 5 mg tablet (Norvasc) 5 mg PO QAM 07/03/18 10/16/21 aspirin 81 mg tablet,delayed 81 mg PO QAM 07/03/18 10/16/21 release levothyroxine 25 mcg tablet 25 mcg PO QAM 07/03/18 10/16/21 lorazepam 1 mg tablet 1 mg PO TID 07/03/18 10/16/21 pantoprazole 20 mg tablet,delayed 40 mg PO QAM 07/03/18 10/16/21 release (Protonix) promethazine 25 mg tablet 25 mg PO Q4H PRN 07/03/18 10/16/21 olplevipyt-cwvcwywgwwzbu-xuywkvhe 1 tab PO Q4H PRN 12/07/20 10/16/21 50 mg-325 mg-40 mg tablet potassium chloride 8 mEq 16 meq PO QAM 12/07/20 10/16/21 tablet,extended release amlodipine 5 mg tablet 5 mg PO DAILY PRN 10/15/21 10/16/21 escitalopram oxalate 5 mg tablet 5 mg PO QAM 10/15/21 10/16/21 oxybutynin chloride 10 mg 10 mg PO HS 10/15/21 10/16/21 tablet,extended release 24 hr Results & Data (ED) Vital Signs Vital Signs - 24 hr 10/16/21 10:00 10/16/21 10:19 10/16/21 10:21 Temperature 36.9 C Temperature Source Temporal Artery Scan Pulse Rate 57 L 54 L Pulse Rate [Radial] 54 L Pulse Rate from SpO2 Sensor Respiratory Rate 18 16 18 Respiratory Effort / Characteristics Non-Labored Respiratory Depth Normal Respiratory Pattern Regular Blood Pressure 127/66 Blood Pressure [Left Arm] 158/69 H Blood Pressure Mean 86 Blood Pressure Mean [Left Arm] 98 Blood Pressure Position [Left Arm] Lying Pulse Oximetry 98 95 97 Oxygen Delivery Method Room Air Room Air Room Air Oxygen Flow Rate Sepsis Recent Fever Within 48 Hours No Sepsis New/Unexplained Change in Mental Status No Sepsis Action Taken by Nursing No Action Required 10/16/21 10:37 10/16/21 11:00 10/16/21 11:30 Temperature Temperature Source Pulse Rate 58 L 54 L 69 Pulse Rate [Radial] Pulse Rate from SpO2 Sensor 57 L 54 L 76 Respiratory Rate 17 16 16 Respiratory Effort / Characteristics Respiratory Depth Respiratory Pattern Blood Pressure 156/77 H 162/75 H 159/91 H Blood Pressure [Left Arm] Blood Pressure Mean 103 104 113 Blood Pressure Mean [Left Arm] Blood Pressure Position [Left Arm] Pulse Oximetry 94 98 99 Oxygen Delivery Method Nasal Cannula Nasal Cannula Room Air Oxygen Flow Rate 4 4 Sepsis Recent Fever Within 48 Hours Sepsis New/Unexplained Change in Mental Status Sepsis Action Taken by Nursing Laboratory Data Result diagrams: 10/16/21 12:56 10/16/21 11:27 Lab Results 10/16/21 10/16/21 10/16/21 Range/Units 11:27 11:27 11:27 WBC Cancelled RBC Cancelled Hgb Cancelled Hct Cancelled MCV Cancelled MCH Cancelled MCHC Cancelled RDW Std Deviation Cancelled RDW Coeff of Hubert Cancelled Plt Count Cancelled MPV Cancelled Immature Gran % (Auto) Cancelled Neut % (Auto) Cancelled Lymph % (Auto) Cancelled [place] % (Auto) Cancelled Eos % (Auto) Cancelled Baso % (Auto) Cancelled Neut # (Auto) Cancelled Lymph # (Auto) Cancelled [place] # (Auto) Cancelled Eos # (Auto) Cancelled Baso # (Auto) Cancelled Immature Gran # (Auto) Cancelled Absolute Nucleated RBC Cancelled Nucleated RBC % (auto) Cancelled Neutrophils % (Manual) Cancelled Band Neutrophils % Cancelled Lymphocytes % (Manual) Cancelled Prolymphocyte % Cancelled Reactive Lymphs % (Man) Cancelled Monocytes % (Manual) Cancelled Eosinophils % (Manual) Cancelled Basophils % (Manual) Cancelled Metamyelocytes % (Man) Cancelled Myelocytes % (Man) Cancelled Promyelocytes % (Man) Cancelled Blast Cells % (Manual) Cancelled Plasma Cell % (Manual) Cancelled Other Cells % Cancelled Nucleated RBC % Cancelled Neutrophils # (Manual) Cancelled Band Neutrophils # Cancelled Total Absolute Neuts Cancelled Lymphocytes # (Manual) Cancelled Prolymphocyte # Cancelled Reactive Lymphs # Cancelled Total Abs Lymphocytes Cancelled Monocytes # (Manual) Cancelled Eosinophils # (Manual) Cancelled Basophils # (Manual) Cancelled Metamyelocytes # (Man) Cancelled Myelocytes # (Manual) Cancelled Promyelocytes # (Man) Cancelled Blast Cells # (Man) Cancelled Plasma Cell # (Manual) Cancelled Other Cells # Cancelled Nucleated RBCs # (Man) Cancelled Hypersegmented Neuts Cancelled Hyposegmented Neuts Cancelled Hypogranular Neuts Cancelled Large Granular Lymphs Cancelled # Lrg Granular Lymphs Cancelled Hairy Cells Cancelled Smudge Cells Cancelled Toxic Granulation Cancelled Toxic Vacuolation Cancelled Dohle Bodies Cancelled Duke Rods Cancelled Platelet Estimate Cancelled Hypogranular Platelets Cancelled Clumped Platelets Cancelled Giant Platelets Cancelled Platelet Satelliting Cancelled RBC Morphology Cancelled Polychromasia Cancelled Hypochromasia Cancelled Poikilocytosis Cancelled Basophilic Stippling Cancelled Anisocytosis Cancelled Microcytosis Cancelled Macrocytosis Cancelled Spherocytes Cancelled Pappenheimer Bodies Cancelled Sickle Cells Cancelled Target Cells Cancelled Tear Drop Cells Cancelled Ovalocytes Cancelled Stomatocytes Cancelled Ramirez-Son[place] Bodies Cancelled Echinocytes Cancelled Acanthocytes (Spur) Cancelled Rouleaux Cancelled RBC Agglutinates Cancelled Schistocytes Cancelled RBC Morph Comment Cancelled Sezary Cell Cancelled Sodium 140 (136-145) mmol/L Potassium 3.9 D (3.5-5.1) mmol/L Chloride 105 (98-107) mmol/L Carbon Dioxide 30 (21-32) mmol/L Anion Gap 5.0 (3-11) BUN 16 (7-18) mg/dl Creatinine 0.85 (0.6-1.2) mg/dl Est Cr Clr Drug Dosing 38.7 ml/min Est GFR ( Amer) 72.9 ml/min Est GFR (Non-Af Amer) 62.9 ml/min BUN/Creatinine Ratio 18.6 (10-20) Glucose 107 H (70-99) mg/dl Lactate 1.3 (0.4-2.0) mmol/L Calcium 8.3 L (8.5-10.1) mg/dl AST 27 (15-37) U/L ALT 29 (12-78) Alkaline Phosphatase 80 (45-117) U/L Troponin I < 0.015 (0-0.045) ng/ml Total Protein 7.3 (6.4-8.2) gm/dl Albumin 3.4 (3.4-5.0) gm/dl Globulin 3.9 (2.5-4.0) gm/dl Albumin/Globulin Ratio 0.9 (0.9-2) Lipase 99 (73-393) U/L Urine Color Urine Appearance (Clear) Urine pH (4.5-7.5) Ur Specific [place] (1.000-1.030) Urine Protein (Negative) Urine Glucose (UA) (Negative) Urine Ketones (Negative) Urine Blood (Negative) Urine Nitrite (Negative) Urine Bilirubin (Negative) Urine Urobilinogen (Negative) Ur Leukocyte Esterase (Negative) Urine WBC (Auto) (0-5) /hpf Urine RBC (Auto) (0-4) /hpf U Hyaline Cast (Auto) (0-5) /lpf U Epithel Cells (Auto) (0-5) /lpf Urine Bacteria (Auto) (Negative) SARS-CoV-2, RNA, NAAT (NEGATIVE) 10/16/21 10/16/21 10/16/21 Range/Units 11:54 12:56 Unknown WBC 12.53 H RBC 4.29 Hgb 13.9 Hct 43.3 MCV 100.9 H MCH 32.4 MCHC 32.1 RDW Std Deviation 50.6 H RDW Coeff of Hubert 13.8 Plt Count 214 MPV 9.9 Immature Gran % (Auto) 0.2 Neut % (Auto) 86.3 Lymph % (Auto) 8.7 [place] % (Auto) 4.0 Eos % (Auto) 0.6 Baso % (Auto) 0.2 Neut # (Auto) 10.83 H Lymph # (Auto) 1.09 L [place] # (Auto) 0.50 Eos # (Auto) 0.07 Baso # (Auto) 0.02 Immature Gran # (Auto) 0.02 Absolute Nucleated RBC Nucleated RBC % (auto) Neutrophils % (Manual) Band Neutrophils % Lymphocytes % (Manual) Prolymphocyte % Reactive Lymphs % (Man) Monocytes % (Manual) Eosinophils % (Manual) Basophils % (Manual) Metamyelocytes % (Man) Myelocytes % (Man) Promyelocytes % (Man) Blast Cells % (Manual) Plasma Cell % (Manual) Other Cells % Nucleated RBC % Neutrophils # (Manual) Band Neutrophils # Total Absolute Neuts Lymphocytes # (Manual) Prolymphocyte # Reactive Lymphs # Total Abs Lymphocytes Monocytes # (Manual) Eosinophils # (Manual) Basophils # (Manual) Metamyelocytes # (Man) Myelocytes # (Manual) Promyelocytes # (Man) Blast Cells # (Man) Plasma Cell # (Manual) Other Cells # Nucleated RBCs # (Man) Hypersegmented Neuts Hyposegmented Neuts Hypogranular Neuts Large Granular Lymphs # Lrg Granular Lymphs Hairy Cells Smudge Cells Toxic Granulation Toxic Vacuolation Dohle Bodies Duke Rods Platelet Estimate Hypogranular Platelets Clumped Platelets Giant Platelets Platelet Satelliting RBC Morphology Polychromasia Hypochromasia Poikilocytosis Basophilic Stippling Anisocytosis Microcytosis Macrocytosis Spherocytes Pappenheimer Bodies Sickle Cells Target Cells Tear Drop Cells Ovalocytes Stomatocytes Ramirez-[place] Bodies Echinocytes Acanthocytes (Spur) Rouleaux RBC Agglutinates Schistocytes RBC Morph Comment Sezary Cell Sodium (136-145) mmol/L Potassium (3.5-5.1) mmol/L Chloride (98-107) mmol/L Carbon Dioxide (21-32) mmol/L Anion Gap (3-11) BUN (7-18) mg/dl Creatinine (0.6-1.2) mg/dl Est Cr Clr Drug Dosing ml/min Est GFR ( Amer) ml/min Est GFR (Non-Af Amer) ml/min BUN/Creatinine Ratio (10-20) Glucose (70-99) mg/dl Lactate (0.4-2.0) mmol/L Calcium (8.5-10.1) mg/dl AST (15-37) U/L ALT (12-78) Alkaline Phosphatase (45-117) U/L Troponin I (0-0.045) ng/ml Total Protein (6.4-8.2) gm/dl Albumin (3.4-5.0) gm/dl Globulin (2.5-4.0) gm/dl Albumin/Globulin Ratio (0.9-2) Lipase (73-393) U/L Urine Color Yellow Urine Appearance Clear (Clear) Urine pH 8.0 H (4.5-7.5) Ur Specific [place] 1.014 (1.000-1.030) Urine Protein Trace H (Negative) Urine Glucose (UA) Negative (Negative) Urine Ketones Negative (Negative) Urine Blood Negative (Negative) Urine Nitrite Negative (Negative) Urine Bilirubin Negative (Negative) Urine Urobilinogen Negative (Negative) Ur Leukocyte Esterase Negative (Negative) Urine WBC (Auto) 1-5 (0-5) /hpf Urine RBC (Auto) 0-4 (0-4) /hpf U Hyaline Cast (Auto) 0 (0-5) /lpf U Epithel Cells (Auto) 20-30 H (0-5) /lpf Urine Bacteria (Auto) 4+ H (Negative) SARS-CoV-2, RNA, NAAT NEGATIVE (NEGATIVE) Administered Medications Sodium Chloride (Nss 1000ml) 1,000 mls @ 125 mls/hr IV .Q8H STA Stop: 10/16/21 18:30 Last Admin: 10/16/21 10:42 Dose: 125 mls/hr Documented by: [id number] Discontinued Medications Lorazepam (Ativan) 0.5 mg in 1 mls @ 1 mls/min IV NOW STA Stop: 10/16/21 14:26 Last Admin: 10/16/21 15:06 Dose: 1 mls/min Documented by: [id number] Ioversol (Optiray 320 100ml) 94 ml IV ONCE ONE Stop: 10/16/21 14:10 Last Admin: 10/16/21 14:14 Dose: 94 ml Documented by: [id number] Morphine Sulfate (Morphine Sulfate 2 Mg/Ml Carp) 2 mg IV NOW STA Stop: 10/16/21 10:32 Last Admin: 10/16/21 10:42 Dose: 2 mg Documented by: [id number] Morphine Sulfate (Morphine Sulfate 2 Mg/Ml Carp) Confirm Administered Dose 2 mg .ROUTE .STK-MED ONE Stop: 10/16/21 15:10 Last Admin: 10/16/21 15:12 Dose: Not Given Documented by: [id number] Morphine Sulfate (Morphine Sulfate 2 Mg/Ml Carp) 2 mg IV NOW STA Stop: 10/16/21 15:10 Last Admin: 10/16/21 15:12 Dose: 2 mg Documented by: [id number] Ondansetron HCl (Ondansetron Inj 2 Mg/Ml 2 Ml Vial) 4 mg IV NOW STA Stop: 10/16/21 10:32 Last Admin: 10/16/21 10:42 Dose: 4 mg Documented by: [id number] Imaging Data Radiologist's Impression: Abdomen/Pelvis CT 10/16/21 10:31 CT SCAN OF THE ABDOMEN AND PELVIS WITH IV CONTRAST CLINICAL HISTORY: Epigastric abdominal pain. COMPARISON STUDY: Abdominal CT dated 10/14/2021. TECHNIQUE: Following the IV administration of 94 cc of Optiray 320, CT scan of the abdomen and pelvis is performed from the lung bases to the proximal femora. Images are reviewed in the axial, sagittal, and coronal planes. IV contrast was administered without complication. Oral contrast was utilized. A dose lowering technique was utilized adhering to the principles of ALARA. CT DOSE: 246.55 mGy.cm FINDINGS: Lung bases: The heart is enlarged and without pericardial effusion. There are trace pleural effusions. Scarring/atelectasis is present both lung bases. An ovoid pulmonary nodule in the left lower lobe measuring 1.0 cm on image #18 is unchanged. Pleural-based densities at the right lung base are also stable from previous. There is no airspace consolidation typical for pneumonia. Liver: The contrast-enhanced liver is normal in size, contour, and attenuation. There is mild intrahepatic biliary ductal dilatation. The hepatic veins and portal veins are patent. Gallbladder: Surgically absent noting clips in the gallbladder fossa. Spleen: Normal in size and attenuation. Pancreas: Unremarkable. Adrenal glands: Unremarkable. Kidneys: The contrast enhanced kidneys are normal in size and without hydronephrosis. The kidneys enhance symmetrically. Abdominal vasculature: The abdominal aorta is normal in course and caliber noting mild atherosclerotic calcification. Stomach and bowel: There is a moderate hiatal hernia. Postoperative change is noted in the stomach. There is postoperative change from left-sided colon resection with left lower quadrant colostomy a small parastomal hernia is noted. The proximal small bowel loops are mildly dilated and filled with contrast measuring up to 2.7 cm diameter. A focal transition point is seen in the pelvis on image #279. The distal small bowel is relatively decompressed. There is no complete bowel obstruction is enteric contrast reaches the cecum. No thick walled small bowel loops are identified and there is no pneumatosis intestinalis or portal venous gas. Interloop fluid is seen in the left upper quadrant. There is also trace fluid within the ostomy. Moderate fecal retention is noted in the right colon. The appendix is not identified. Peritoneum: There is trace free fluid in the pelvis. No intraperitoneal free air is identified. Lymphadenopathy: None. Pelvic viscera: The bladder is distended but otherwise normal in appearance. The uterus is surgically absent. No adnexal lesion is seen. Skeletal structures: The skeletal structures are osteopenic. There is mild to moderate lumbosacral spondylosis. No lytic or blastic lesions are seen. IMPRESSION: 1. There is postoperative change from left-sided colon resection with left lower quadrant colostomy. 2. There are dilated loops of proximal small bowel with a focal transition point identified in the pelvis. The distal small bowel is decompressed, and this likely represents a partial small bowel obstruction. There is no complete obstruction as enteric contrast reaches the cecum. 3. There is trace interloop fluid in the left upper quadrant as well as trace fluid in the pelvis. 4. There is no intraperitoneal free air identified. No pneumatosis intestinalis or portal venous gas is seen. 5. Cardiomegaly and trace pleural effusions. 6. Moderate hiatal hernia. 7. Additional findings as above. ACT 112: Negative or not required by law. Electronically signed by: Deepak Mckeon M.D. 10/16/2021 2:50 PM Discharge Plan Visit Data Chief Complaint: Abdominal Pain Stated Complaint: AB PAIN ED Provider: Sylvain Benson Discharge Problem: Partial small bowel obstruction, Abdominal pain, epigastric, Leukocytosis Forms Stand Alone Forms: My [facility] Prescriptions Prescriptions: No Action amlodipine [Norvasc] 5 mg Tablet 5 mg PO QAM RF: 0 aspirin 81 mg Tablet,Delayed Release (Dr/Ec) 81 mg PO QAM RF: 0 levothyroxine 25 mcg Tablet 25 mcg PO QAM RF: 0 pantoprazole [Protonix] 20 mg Tablet,Delayed Release (Dr/Ec) 40 mg PO QAM RF: 0 promethazine 25 mg Tablet 25 mg PO Q4H PRN (Reason: Nausea) RF: 0 lorazepam 1 mg Tablet 1 mg PO TID RF: 0 jnadebclsh-hbhnizmkfgeki-mzwc 50-325-40 mg Tablet 1 tab PO Q4H PRN (Reason: Headache) RF: 0 potassium chloride 8 mEq tablet extended release 16 meq PO QAM RF: 0 oxybutynin chloride 10 mg tablet extended release 24hr 10 mg PO HS RF: 0 amlodipine 5 mg tablet 5 mg PO DAILY PRN (Reason: .SBP >150) RF: 0 escitalopram oxalate 5 mg tablet 5 mg PO QAM RF: 0 Referrals Referrals: PCP,NO [Physician] -
[2021-10-16 12:02] LABS: Albumin Level 3.4 gm/dl (3.4-5.0); Aspartate Aminotransferase 27 U/L (15-37); BUN Creatinine Ratio 18.6 (10-20); Blood Urea Nitrogen 16 mg/dl (7-18); Calcium 8.3 mg/dl (8.5-10.1); Carbon Dioxide 30 mmol/L (21-32); Chloride 105 mmol/L (98-107); Creatinine Clr Calc Pharmacy 38.7 ml/min; Est GFR (African American) 72.9 ml/min; Est GFR (Non-African American) 62.9 ml/min; Glucose 107 mg/dl (70-99); Lipase 99 U/L (73-393); Potassium 3.9 mmol/L (3.5-5.1); Sodium 140 mmol/L (136-145)
[2021-10-16 12:05] LABS: Alanine Aminotransferase 29 (12-78); Albumin Globulin Ratio 0.9 (0.9-2); Alkaline Phosphatase 80 U/L (45-117); Globulin 3.9 gm/dl (2.5-4.0); Total Protein 7.3 gm/dl (6.4-8.2); Troponin I < 0.015 ng/ml (0-0.045)
--- NOTE | 2021-10-16 12:13 | Electrocardiogram Report ---
Test Reason : Blood Pressure : / mmHG Vent. Rate : 049 BPM Atrial Rate : 049 BPM P-R Int : 212 ms QRS Dur : 068 ms QT Int : 462 ms P-R-T Axes : 065 055 057 degrees QTc Int : 417 ms Sinus bradycardia with sinus arrhythmia with 1st degree A-V block Septal infarct (cited on or before 14-OCT-2021) Abnormal ECG When compared with ECG of 14-OCT-2021 22:26, Premature ventricular complexes are no longer Present UT interval has increased Confirmed by Merritt Zapata ([id number]) on 10/16/2021 12:13:23 PM Referred By: Confirmed By:Merritt Zapata
[2021-10-16 12:28] LABS: Appearance Urine Clear (Clear); Bacteria Urine Automated 4+ (Negative); Bilirubin Urine Negative (Negative); Blood Urine Negative (Negative); Cast Urine Automated 0 /lpf (0-5); Color Urine Yellow; Epithelial Cell Urine Auto 20-30 /lpf (0-5); Glucose Urine UA Negative (Negative); Ketones Urine Negative (Negative); Leukocyte Esterase Urine Negative (Negative); Nitrite Urine Negative (Negative); RBC Urine Automated 0-4 /hpf (0-4); Specific Gravity Urine 1.014 (1.000-1.030); Urobilinogen Urine Negative (Negative)
[2021-10-16 12:45] LABS: Protein Urine Trace (Negative)
[2021-10-16 13:12] LABS: Basophils # (auto) 0.02 K/uL (0-0.2); Basophils % (auto) 0.2 %; Eosinophils # (auto) 0.07 K/uL (0-0.5); Eosinophils % (auto) 0.6 %; Hematocrit (blood only) 43.3 % (37-47); Hemoglobin 13.9 g/dL (12.0-16.0); Immature Granulocytes # (auto) 0.02 K/uL (0.00-0.02); Immature Granulocytes % (auto) 0.2 %; Lymphocytes # (auto) 1.09 K/uL (1.2-3.4); Lymphocytes % (auto) 8.7 %; Mean Corpuscular Hemoglobin 32.4 pg (25-34); Mean Corpuscular Hgb Conc 32.1 g/dL (32-36); Mean Corpuscular Volume 100.9 fL (80-100); Mean Platelet Volume 9.9 fL (7.4-10.4); Neutrophils # (auto) 10.83 K/uL (1.4-6.5); Neutrophils % (auto) 86.3 %; Platelet Count 214 K/uL (130-400); RDW Coefficient of Variation 13.8 % (11.5-14.5); RDW Standard Deviation 50.6 fL (36.4-46.3); Red Blood Count 4.29 M/uL (4.2-5.4); White Blood Count 12.53 K/uL (4.8-10.8)
[2021-10-16] MEDS ORDERED: OPTIRAY 320 100ml IV ONE (14:09)
[2021-10-16] MEDS ORDERED: LORazepam 0.5 MG/1 ML VIAL IV STA (14:25)
--- NOTE | 2021-10-16 14:51 | CT Scan Report ---
CT SCAN OF THE ABDOMEN AND PELVIS WITH IV CONTRAST CLINICAL HISTORY: Epigastric abdominal pain. COMPARISON STUDY: Abdominal CT dated 10/14/2021. TECHNIQUE: Following the IV administration of 94 cc of Optiray 320, CT scan of the abdomen and pelvi s is performed from the lung bases to the proximal femora. Images are reviewed in the axial, sagittal , and coronal planes. IV contrast was administered without complication. Oral contrast was utilized. A dose lowering technique was utilized adhering to the principles of ALARA. CT DOSE: 246.55 mGy.cm FINDINGS: Lung bases: The heart is enlarged and without pericardial effusion. There are trace pleural effusions . Scarring/atelectasis is present both lung bases. An ovoid pulmonary nodule in the left lower lobe m easuring 1.0 cm on image #18 is unchanged. Pleural-based densities at the right lung base are also st able from previous. There is no airspace consolidation typical for pneumonia. Liver: The contrast-enhanced liver is normal in size, contour, and attenuation. There is mild intrahe patic biliary ductal dilatation. The hepatic veins and portal veins are patent. Gallbladder: Surgically absent noting clips in the gallbladder fossa. Spleen: Normal in size and attenuation. Pancreas: Unremarkable. Adrenal glands: Unremarkable. Kidneys: The contrast enhanced kidneys are normal in size and without hydronephrosis. The kidneys enh ance symmetrically. Abdominal vasculature: The abdominal aorta is normal in course and caliber noting mild atheroscleroti c calcification. Stomach and bowel: There is a moderate hiatal hernia. Postoperative change is noted in the stomach. T here is postoperative change from left-sided colon resection with left lower quadrant colostomy a sma ll parastomal hernia is noted. The proximal small bowel loops are mildly dilated and filled with cont rast measuring up to 2.7 cm diameter. A focal transition point is seen in the pelvis on image #279. T he distal small bowel is relatively decompressed. There is no complete bowel obstruction is enteric c ontrast reaches the cecum. No thick walled small bowel loops are identified and there is no pneumatos is intestinalis or portal venous gas. Interloop fluid is seen in the left upper quadrant. There is al so trace fluid within the ostomy. Moderate fecal retention is noted in the right colon. The appendix is not identified. Peritoneum: There is trace free fluid in the pelvis. No intraperitoneal free air is identified. Lymphadenopathy: None. Pelvic viscera: The bladder is distended but otherwise normal in appearance. The uterus is surgically absent. No adnexal lesion is seen. Skeletal structures: The skeletal structures are osteopenic. There is mild to moderate lumbosacral sp ondylosis. No lytic or blastic lesions are seen. IMPRESSION: 1. There is postoperative change from left-sided colon resection with left lower quadrant colostomy. 2. There are dilated loops of proximal small bowel with a focal transition point identified in the pe lvis. The distal small bowel is decompressed, and this likely represents a partial small bowel obstru ction. There is no complete obstruction as enteric contrast reaches the cecum. 3. There is trace interloop fluid in the left upper quadrant as well as trace fluid in the pelvis. 4. There is no intraperitoneal free air identified. No pneumatosis intestinalis or portal venous gas is seen. 5. Cardiomegaly and trace pleural effusions. 6. Moderate hiatal hernia. 7. Additional findings as above. ACT 112: Negative or not required by law. Electronically signed by: Deepak Mckeon M.D. 10/16/2021 2:50 PM
[2021-10-16] MEDS ORDERED: MoRPHine SULFATE 2 MG/ML CARP ONE (15:09)
--- NOTE | 2021-10-16 15:50 | History & Physical Report ---
Date of Service October 16, 2021 Assessment & Plan (1) Partial small bowel obstruction: Plan: Likely secondary to adhesive disease with history of multiple abdominal surgeries to include appendectomy, cholecystectomy, ventral hernia repair, colostomy, hysterectomy Fortunately, no nausea/vomiting, but has abdominal distention and pain. Last stool output through ostomy was on 10/[address] abdomen/pelvis showing partial small bowel obstruction but some contrast does reach the cecum, with moderate fecal retention noted in the right colon With leukocytosis, but no fever, no evidence of SIRS/sepsis -Admit to medical/surgical floor -Keep n.p.o. -No need for NG tube unless develops nausea and vomiting -Monitor for ostomy output -Pain control with IV morphine -IV Zofran as needed for nausea -Start maintenance fluids with LR at 80 mL's per hour -Follow CBC, BMP, magnesium, phosphorus and replace electrolytes as needed -Hold all home p.o. meds and replace with IV as needed -Hopefully the p.o. contrast from her CT scan will get things moving from below -No need for surgical consultation at this point (2) Leukocytosis: Plan: Secondary to partial small bowel obstruction Her urinalysis is contaminant with epithelial cells, urine culture was reflexively sent but no need for treatment with antibiotics Follow CBC (3) Colostomy in place: Plan: As above Had 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 incontinence (4) HTN (hypertension): Plan: Blood pressures are mildly elevated Hold home amlodipine while n.p.o. Can give IV hydralazine as needed for severely elevated blood pressures (5) GERD (gastroesophageal reflux disease): Plan: Replace home p.o. PPI with IV PPI once daily (6) Depression: Plan: Hold home Lexapro (7) Anxiety: Plan: Hold home p.o. lorazepam and give IV lorazepam as needed (8) Hypothyroid: Plan: Hold home levothyroxine for now, but start IV levothyroxine if n.p.o. for more than 3 days TSH recently normal at 3.1 and 06/2021 (9) Pulmonary hypertension: Plan: Mild No treatment needed (10) History of pulmonary embolism: Plan: Many years ago, not on current anticoagulation SCDs and Lovenox SQ ordered for DVT prophylaxis Plan: Disposition-admit to medical/surgical unit Full code, but would not want prolonged life support if has a poor prognosis for recovery History of Present Illness Chief Complaint: Abdominal pain Primary Care Provider: Twila Denton MD This patient is an 86-year-old female with a history of HTN, pulmonary hypertension, depression/anxiety, GERD, hypothyroidism, PE, status post colostomy, who presents to the ER with abdominal pain. She was seen in the ER 2 days ago for similar complaints with epigastric pain that was crampy in nature and was radiating to the back-she had a CT angiogram of the chest/abdomen/pelvis which was negative at that time. She did improve and went home. The pain returned last night and she was not able to sleep all night. No nausea or vomiting, no blood in her ostomy. In the ER, she was found to have a partial small bowel obstruction on CT abdomen/pelvis with oral and IV contrast. She had an elevated white blood cell count 12.5, but electrolytes and renal function as well as LFTs and troponin were all normal. Lipase was negative. Lactate was negative. Urinalysis consistent with contamination from epithelial cells. Covid-19 test was negative. She was given IV morphine, Zofran, and lorazepam as she typically takes mele zepam daily. She was also given IV fluids. She did have some relief. NG tube not placed as she was not having any nausea or vomiting. She will be admitted for management of partial small bowel obstruction abdominal pain. Allergies Allergy/AdvReac Type Severity Reaction Status Date / Time verapamil Allergy Severe "THINGS Verified 10/16/21 11:45 STARTED TO SHUT DOWN-HEART, B/P TILL GOT TO ER". aspirin AdvReac Unknown GI UPSET, Verified 10/16/21 11:45 TAKES BABY ASA WITHOUT PROB Home Medications Medication Instructions Recorded Confirmed Type amlodipine 5 mg tablet (Norvasc) 5 mg PO QAM 07/03/18 10/16/21 History aspirin 81 mg tablet,delayed 81 mg PO QAM 07/03/18 10/16/21 History release levothyroxine 25 mcg tablet 25 mcg PO QAM 07/03/18 10/16/21 History lorazepam 1 mg tablet 1 mg PO TID 07/03/18 10/16/21 History pantoprazole 20 mg tablet,delayed 40 mg PO QAM 07/03/18 10/16/21 History release (Protonix) promethazine 25 mg tablet 25 mg PO Q4H PRN 07/03/18 10/16/21 History iqvawhkeau-schdjnvxoahgk-uprobswu 1 tab PO Q4H PRN 12/07/20 10/16/21 History 50 mg-325 mg-40 mg tablet potassium chloride 8 mEq 16 meq PO QAM 12/07/20 10/16/21 History tablet,extended release amlodipine 5 mg tablet 5 mg PO DAILY PRN 10/15/21 10/16/21 History escitalopram oxalate 5 mg tablet 5 mg PO QAM 10/15/21 10/16/21 History oxybutynin chloride 10 mg 10 mg PO HS 10/15/21 10/16/21 History tablet,extended release 24 hr Past Med/Surg History Medical History Anxiety Chronic back pain PAIN TO BOTH LEGS Chronic nausea Colostomy in place Depression GERD (gastroesophageal reflux disease) History of palpitations "skips beats" Hypertension Lung nodules previously biopsied - benign Migraine Osteoarthritis Poor historian Pulmonary embolism 4-5 years ago - asymptomatic - incidental finding - treated w/ blood thinners x 6 months, cause? Trouble swallowing CERTAIN FOODS WILL STICK WHEN SWALLOWING Weight loss 30+ lb weight loss in lst 6 months Surgical History History of bronchoscopy History of colonoscopy History of colostomy 10 -12years - placed b/c of incontinence (cause??) History of esophagogastroduodenoscopy (EGD) w/ dilatation History of hernia repair History of Lloyd fundoplication History of surgery left elbow Hx of bladder repair surgery FOR SUPPORT Hx of cholecystectomy Hx of thyroidectomy PARTIAL Hx of tonsillectomy Nausea and vomiting after administration of anesthetic agent S/P ANKIT-BSO HX Family History Mother Hypertension Cancer Father Cancer Other No family history of adverse response to anesthesia No family history of bleeding disorder Social History Smoking Status: Never smoker Second Hand Exposure: No; Hx Alcohol Use: No Hx Substance Use: No Preferred Language: Wolof Communication Ability: Effective Stockkeeper Required: No Beliefs That Will Affect Care: None Current Living Situation: Alone Feels Safe at Home: Yes Assistive Devices: None Review of Systems Review of Systems: All systems reviewed & are unremarkable except as noted in HPI & below Physical Exam Constitutional: WD/WN, vitals as above Eyes: PERRL, conjunctivae normal, anicteric sclerae ENMT: external ear and nose normal, oropharynx normal Neck: trachea midline, no thyromegaly Respiratory: normal respiratory effort, lungs clear to auscultation Cardiovascular: RRR, no murmur, no edema Chest (Breasts): Chest: normal inspection of chest Gastrointestinal (Abdomen): Inspection/Auscultation: + abdomen distended and + hypoactive bowel sounds; + abdomen abnormal to inspection (Colostomy bag without any gas or stool) Percussion/Palpation: + abdomen tender (Diffusely without guarding) Musculoskeletal: Extremities: extremities normal to inspection; no cyanosis and no clubbing Skin: no rashes, warm and dry Neurologic: moves all extremities and awake; no focal motor deficits Psychiatric: A+Ox3, euthymic affect Lymphatic: no lymphedema Results & Data Results & Data ([facility]) Vital Signs (Past 12 Hours) Vital Signs Temp Pulse Pulse Resp BP BP Pulse Ox 10/16/21 11:30 69 16 159/91 H 99 10/16/21 11:00 54 L 16 162/75 H 98 10/16/21 10:37 58 L 17 156/77 H 94 10/16/21 10:21 54 L 18 158/69 H 97 10/16/21 10:19 54 L 16 95 10/16/21 10:00 36.9 C 57 L 18 127/66 98 Laboratory Results 10/16/21 10/16/21 10/16/21 Range/Units Unknown 12:56 11:54 WBC 12.53 H RBC 4.29 Hgb 13.9 Hct 43.3 MCV 100.9 H MCH 32.4 MCHC 32.1 RDW Std Deviation 50.6 H RDW Coeff of Hubert 13.8 Plt Count 214 MPV 9.9 Immature Gran % (Auto) 0.2 Neut % (Auto) 86.3 Lymph % (Auto) 8.7 Foster % (Auto) 4.0 Eos % (Auto) 0.6 Baso % (Auto) 0.2 Neut # (Auto) 10.83 H Lymph # (Auto) 1.09 L Foster # (Auto) 0.50 Eos # (Auto) 0.07 Baso # (Auto) 0.02 Immature Gran # (Auto) 0.02 Absolute Nucleated RBC Nucleated RBC % (auto) Neutrophils % (Manual) Band Neutrophils % Lymphocytes % (Manual) Prolymphocyte % Reactive Lymphs % (Man) Monocytes % (Manual) Eosinophils % (Manual) Basophils % (Manual) Metamyelocytes % (Man) Myelocytes % (Man) Promyelocytes % (Man) Blast Cells % (Manual) Plasma Cell % (Manual) Other Cells % Nucleated RBC % Neutrophils # (Manual) Band Neutrophils # Total Absolute Neuts Lymphocytes # (Manual) Prolymphocyte # Reactive Lymphs # Total Abs Lymphocytes Monocytes # (Manual) Eosinophils # (Manual) Basophils # (Manual) Metamyelocytes # (Man) Myelocytes # (Manual) Promyelocytes # (Man) Blast Cells # (Man) Plasma Cell # (Manual) Other Cells # Nucleated RBCs # (Man) Hypersegmented Neuts Hyposegmented Neuts Hypogranular Neuts Large Granular Lymphs # Lrg Granular Lymphs Hairy Cells Smudge Cells Toxic Granulation Toxic Vacuolation Dohle Bodies Duke Rods Platelet Estimate Hypogranular Platelets Clumped Platelets Giant Platelets Platelet Satelliting RBC Morphology Polychromasia Hypochromasia Poikilocytosis Basophilic Stippling Anisocytosis Microcytosis Macrocytosis Spherocytes Pappenheimer Bodies Sickle Cells Target Cells Tear Drop Cells Ovalocytes Stomatocytes Ramirez-Blairsden Bodies Echinocytes Acanthocytes (Spur) Rouleaux RBC Agglutinates Schistocytes RBC Morph Comment Sezary Cell Sodium (136-145) mmol/L Potassium (3.5-5.1) mmol/L Chloride (98-107) mmol/L Carbon Dioxide (21-32) mmol/L Anion Gap (3-11) BUN (7-18) mg/dl Creatinine (0.6-1.2) mg/dl Est Cr Clr Drug Dosing ml/min Est GFR ( Amer) ml/min Est GFR (Non-Af Amer) ml/min BUN/Creatinine Ratio (10-20) Glucose (70-99) mg/dl Lactate (0.4-2.0) mmol/L Calcium (8.5-10.1) mg/dl Total Bilirubin AST (15-37) U/L ALT (12-78) Alkaline Phosphatase (45-117) U/L Troponin I (0-0.045) ng/ml Total Protein (6.4-8.2) gm/dl Albumin (3.4-5.0) gm/dl Globulin (2.5-4.0) gm/dl Albumin/Globulin Ratio (0.9-2) Lipase (73-393) U/L Urine Color Yellow Urine Appearance Clear (Clear) Urine pH 8.0 H (4.5-7.5) Ur Specific Gregory 1.014 (1.000-1.030) Urine Protein Trace H (Negative) Urine Glucose (UA) Negative (Negative) Urine Ketones Negative (Negative) Urine Blood Negative (Negative) Urine Nitrite Negative (Negative) Urine Bilirubin Negative (Negative) Urine Urobilinogen Negative (Negative) Ur Leukocyte Esterase Negative (Negative) Urine WBC (Auto) 1-5 (0-5) /hpf Urine RBC (Auto) 0-4 (0-4) /hpf U Hyaline Cast (Auto) 0 (0-5) /lpf U Epithel Cells (Auto) 20-30 H (0-5) /lpf Urine Bacteria (Auto) 4+ H (Negative) SARS-CoV-2, RNA, NAAT NEGATIVE (NEGATIVE) 10/16/21 10/16/21 10/16/21 Range/Units 11:27 11:27 11:27 WBC Cancelled RBC Cancelled Hgb Cancelled Hct Cancelled MCV Cancelled MCH Cancelled MCHC Cancelled RDW Std Deviation Cancelled RDW Coeff of Hubert Cancelled Plt Count Cancelled MPV Cancelled Immature Gran % (Auto) Cancelled Neut % (Auto) Cancelled Lymph % (Auto) Cancelled Foster % (Auto) Cancelled Eos % (Auto) Cancelled Baso % (Auto) Cancelled Neut # (Auto) Cancelled Lymph # (Auto) Cancelled Foster # (Auto) Cancelled Eos # (Auto) Cancelled Baso # (Auto) Cancelled Immature Gran # (Auto) Cancelled Absolute Nucleated RBC Cancelled Nucleated RBC % (auto) Cancelled Neutrophils % (Manual) Cancelled Band Neutrophils % Cancelled Lymphocytes % (Manual) Cancelled Prolymphocyte % Cancelled Reactive Lymphs % (Man) Cancelled Monocytes % (Manual) Cancelled Eosinophils % (Manual) Cancelled Basophils % (Manual) Cancelled Metamyelocytes % (Man) Cancelled Myelocytes % (Man) Cancelled Promyelocytes % (Man) Cancelled Blast Cells % (Manual) Cancelled Plasma Cell % (Manual) Cancelled Other Cells % Cancelled Nucleated RBC % Cancelled Neutrophils # (Manual) Cancelled Band Neutrophils # Cancelled Total Absolute Neuts Cancelled Lymphocytes # (Manual) Cancelled Prolymphocyte # Cancelled Reactive Lymphs # Cancelled Total Abs Lymphocytes Cancelled Monocytes # (Manual) Cancelled Eosinophils # (Manual) Cancelled Basophils # (Manual) Cancelled Metamyelocytes # (Man) Cancelled Myelocytes # (Manual) Cancelled Promyelocytes # (Man) Cancelled Blast Cells # (Man) Cancelled Plasma Cell # (Manual) Cancelled Other Cells # Cancelled Nucleated RBCs # (Man) Cancelled Hypersegmented Neuts Cancelled Hyposegmented Neuts Cancelled Hypogranular Neuts Cancelled Large Granular Lymphs Cancelled # Lrg Granular Lymphs Cancelled Hairy Cells Cancelled Smudge Cells Cancelled Toxic Granulation Cancelled Toxic Vacuolation Cancelled Dohle Bodies Cancelled Duke Rods Cancelled Platelet Estimate Cancelled Hypogranular Platelets Cancelled Clumped Platelets Cancelled Giant Platelets Cancelled Platelet Satelliting Cancelled RBC Morphology Cancelled Polychromasia Cancelled Hypochromasia Cancelled Poikilocytosis Cancelled Basophilic Stippling Cancelled Anisocytosis Cancelled Microcytosis Cancelled Macrocytosis Cancelled Spherocytes Cancelled Pappenheimer Bodies Cancelled Sickle Cells Cancelled Target Cells Cancelled Tear Drop Cells Cancelled Ovalocytes Cancelled Stomatocytes Cancelled Ramirez-Blairsden Bodies Cancelled Echinocytes Cancelled Acanthocytes (Spur) Cancelled Rouleaux Cancelled RBC Agglutinates Cancelled Schistocytes Cancelled RBC Morph Comment Cancelled Sezary Cell Cancelled Sodium 140 (136-145) mmol/L Potassium 3.9 D (3.5-5.1) mmol/L Chloride 105 (98-107) mmol/L Carbon Dioxide 30 (21-32) mmol/L Anion Gap 5.0 (3-11) BUN 16 (7-18) mg/dl Creatinine 0.85 (0.6-1.2) mg/dl Est Cr Clr Drug Dosing 38.7 ml/min Est GFR ( Amer) 72.9 ml/min Est GFR (Non-Af Amer) 62.9 ml/min BUN/Creatinine Ratio 18.6 (10-20) Glucose 107 H (70-99) mg/dl Lactate 1.3 (0.4-2.0) mmol/L Calcium 8.3 L (8.5-10.1) mg/dl Total Bilirubin Pending AST 27 (15-37) U/L ALT 29 (12-78) Alkaline Phosphatase 80 (45-117) U/L Troponin I < 0.015 (0-0.045) ng/ml Total Protein 7.3 (6.4-8.2) gm/dl Albumin 3.4 (3.4-5.0) gm/dl Globulin 3.9 (2.5-4.0) gm/dl Albumin/Globulin Ratio 0.9 (0.9-2) Lipase 99 (73-393) U/L Urine Color Urine Appearance (Clear) Urine pH (4.5-7.5) Ur Specific Gregory (1.000-1.030) Urine Protein (Negative) Urine Glucose (UA) (Negative) Urine Ketones (Negative) Urine Blood (Negative) Urine Nitrite (Negative) Urine Bilirubin (Negative) Urine Urobilinogen (Negative) Ur Leukocyte Esterase (Negative) Urine WBC (Auto) (0-5) /hpf Urine RBC (Auto) (0-4) /hpf U Hyaline Cast (Auto) (0-5) /lpf U Epithel Cells (Auto) (0-5) /lpf Urine Bacteria (Auto) (Negative) SARS-CoV-2, RNA, NAAT (NEGATIVE) Diagnostic Findings Abdomen/Pelvis CT 10/16/21 10:31 CT SCAN OF THE ABDOMEN AND PELVIS WITH IV CONTRAST CLINICAL HISTORY: Epigastric abdominal pain. COMPARISON STUDY: Abdominal CT dated 10/14/2021. TECHNIQUE: Following the IV administration of 94 cc of Optiray 320, CT scan of the abdomen and pelvis is performed from the lung bases to the proximal femora. Images are reviewed in the axial, sagittal, and coronal planes. IV contrast was administered without complication. Oral contrast was utilized. A dose lowering technique was utilized adhering to the principles of ALARA. CT DOSE: 246.55 mGy.cm FINDINGS: Lung bases: The heart is enlarged and without pericardial effusion. There are trace pleural effusions. Scarring/atelectasis is present both lung bases. An ovoid pulmonary nodule in the left lower lobe measuring 1.0 cm on image #18 is unchanged. Pleural-based densities at the right lung base are also stable from previous. There is no airspace consolidation typical for pneumonia. Liver: The contrast-enhanced liver is normal in size, contour, and attenuation. There is mild intrahepatic biliary ductal dilatation. The hepatic veins and portal veins are patent. Gallbladder: Surgically absent noting clips in the gallbladder fossa. Spleen: Normal in size and attenuation. Pancreas: Unremarkable. Adrenal glands: Unremarkable. Kidneys: The contrast enhanced kidneys are normal in size and without hydr onephrosis. The kidneys enhance symmetrically. Abdominal vasculature: The abdominal aorta is normal in course and caliber noting mild atherosclerotic calcification. Stomach and bowel: There is a moderate hiatal hernia. Postoperative change is noted in the stomach. There is postoperative change from left-sided colon resection with left lower quadrant colostomy a small parastomal hernia is noted. The proximal small bowel loops are mildly dilated and filled with contrast measuring up to 2.7 cm diameter. A focal transition point is seen in the pelvis on image #279. The distal small bowel is relatively decompressed. There is no complete bowel obstruction is enteric contrast reaches the cecum. No thick walled small bowel loops are identified and there is no pneumatosis intestinalis or portal venous gas. Interloop fluid is seen in the left upper quadrant. There is also trace fluid within the ostomy. Moderate fecal retention is noted in the right colon. The appendix is not identified. Peritoneum: There is trace free fluid in the pelvis. No intraperitoneal free air is identified. Lymphadenopathy: None. Pelvic viscera: The bladder is distended but otherwise normal in appearance. The uterus is surgically absent. No adnexal lesion is seen. Skeletal structures: The skeletal structures are osteopenic. There is mild to moderate lumbosacral spondylosis. No lytic or blastic lesions are seen. IMPRESSION: 1. There is postoperative change from left-sided colon resection with left lower quadrant colostomy. 2. There are dilated loops of proximal small bowel with a focal transition point identified in the pelvis. The distal small bowel is decompressed, and this likely represents a partial small bowel obstruction. There is no complete obstruction as enteric contrast reaches the cecum. 3. There is trace interloop fluid in the left upper quadrant as well as trace fluid in the pelvis. 4. There is no intraperitoneal free air identified. No pneumatosis intestinalis or portal venous gas is seen. 5. Cardiomegaly and trace pleural effusions. 6. Moderate hiatal hernia. 7. Additional findings as above. ACT 112: Negative or not required by law. Electronically signed by: Deepak Mckeon M.D. 10/16/2021 2:50 PM ECG Additional Comments: ECG on 10/16/2021 at 10:14 AM with sinus bradycardia with sinus arrhythmia, first- degree AV block, septal infarct unchanged Code Status & VTE Plan Code Status Full code VTE Prophylaxis Plan VTE Prophylaxis will be ordered: Yes PG Care Time/CCT Total # of Minutes Spent Total Time Spent with Patient: Total time spent is greater than 50% in coordination of care (as documented) at patient's floor/unit and/or counseling patient: Coding Level of Care Code 94830 Initial Inpt Care Lvl 3 Diagnoses GERD (gastroesophageal reflux disease) K21.9 HTN (hypertension) I10 Depression F32.9 Anxiety F41.9 Hypothyroid E03.9 Pulmonary hypertension I27.[address] Z93.3 Partial small bowel obstruction K56.600 Leukocytosis D72.829 History of pulmonary embolism Z86.711
[2021-10-16] MEDS: LACTATED RINGER'S 1,000 ML IV SCH (18:28)
[2021-10-16 18:54] LABS: Bilirubin,Total 0.3 mg/dl (0.2-1)
[2021-10-16] MEDS: MoRPHine SULFATE 2 MG/ML CARP IV PRN (19:28)
[2021-10-16] MEDS ORDERED: ENOXAPARIN INJ 40 MG/0.4 ML SYR SQ SCH (20:00)
[2021-10-16] MEDS: LORazepam 0.5 MG/1 ML VIAL IV PRN (23:03)
[2021-10-17] MEDS: MoRPHine SULFATE 2 MG/ML CARP IV PRN ×2 (01:36→10:01)
[2021-10-17] MEDS: ACETAMINOPHEN 1000 MG/100 ML IV IV PRN ×2 (04:03→13:15)
[2021-10-17 05:55] LABS: Basophils # (auto) 0.02 K/uL (0-0.2); Basophils % (auto) 0.3 %; Eosinophils # (auto) 0.26 K/uL (0-0.5); Eosinophils % (auto) 3.9 %; Hematocrit (blood only) 39.1 % (37-47); Hemoglobin 12.5 g/dL (12.0-16.0); Immature Granulocytes # (auto) 0.01 K/uL (0.00-0.02); Immature Granulocytes % (auto) 0.1 %; Lymphocytes # (auto) 1.04 K/uL (1.2-3.4); Lymphocytes % (auto) 15.5 %; Mean Corpuscular Hemoglobin 32.6 pg (25-34); Mean Corpuscular Volume 102.1 fL (80-100); Mean Platelet Volume 8.9 fL (7.4-10.4); Monocytes # (auto) 0.51 K/uL (0.11-0.59); Monocytes % (auto) 7.6 %; Neutrophils # (auto) 4.88 K/uL (1.4-6.5); Neutrophils % (auto) 72.6 %; Platelet Count 204 K/uL (130-400); RDW Coefficient of Variation 13.7 % (11.5-14.5); RDW Standard Deviation 50.6 fL (36.4-46.3); Red Blood Count 3.83 M/uL (4.2-5.4); White Blood Count 6.72 K/uL (4.8-10.8)
[2021-10-17 06:30] LABS: BUN Creatinine Ratio 11.7 (10-20); Calcium 8.6 mg/dl (8.5-10.1); Creatinine Clr Calc Pharmacy 43.6 ml/min; Est GFR (African American) 92.6 ml/min; Est GFR (Non-African American) 79.9 ml/min; Magnesium 1.8 mg/dl (1.8-2.4); Phosphorus 2.6 mg/dl (2.5-4.9); Potassium 3.5 mmol/L (3.5-5.1)
[2021-10-17] MEDS: LACTATED RINGER'S 1,000 ML IV SCH ×2 (06:50→20:27)
[2021-10-17] MEDS: LORazepam 0.5 MG/1 ML VIAL IV PRN ×2 (08:23→15:20)
[2021-10-17] MEDS: ONDANSETRON INJ 2 MG/ML 2 ML VIAL IV PRN (10:15)
[2021-10-17] MEDS ORDERED: POTASSIUM CHLORIDE CRTAB 20 MEQ TABCR PO STA (10:17)
[2021-10-17] MEDS ORDERED: MAGNESIUM SULFATE / D5W 1 GM/100 ML BAG IV ONE (10:30)
[2021-10-17] MEDS ORDERED: PANTOprazole 40 MG in SYRINGE 0 ML IV SCH (11:00)
--- NOTE | 2021-10-17 11:00 | XRay Report ---
XR KUB/Abdomen 1 view CLINICAL HISTORY: f/u Partial SBO TECHNIQUE: 1 view of the abdomen was obtained. Comparison: None available at the time of this dictation. FINDINGS: Lung bases are unremarkable. The osseous structures are grossly unremarkable. The bowel gas pattern i s nonobstructive. Enteric contrast is noted in the large bowel. IMPRESSION: Nonobstructive bowel gas pattern. ACT 112: Negative or not required by law. Electronically signed by: Philippe Beltre M.D. 10/17/2021 10:59 AM
[2021-10-17] MEDS ORDERED: bisacodyL 10 MG SUPP PR STA (12:12)
[2021-10-17] MEDS: PROCHLORPERAZINE 10 MG in SYRINGE 8 ML IV PRN (13:16)
[2021-10-17] MEDS ORDERED: METOPROLOL TARTRATE 1 MG/ML VIAL IV STA (16:11)
--- NOTE | 2021-10-17 16:30 | Hospitalist Progress Note ---
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 and given IV fluids. She had some nausea the next morning but this is now resolved. Abdominal distention is improved and she is now passing small amount of stool and gas in her colostomy bag. Abdominal pain is resolved KUB on 10/17 without any obstruction and with moderate amount of stool in the colon on the right -Advance diet to clear liquids -Monitor for continued ostomy output -Pain control with IV morphine as needed -IV Zofran and IV Compazine added as needed for nausea -Continue maintenance fluids with LR at 80 mL's per hour until taking adequate p.o. -Follow CBC, BMP, magnesium, phosphorus and replace electrolytes as needed -Held all home p.o. meds and replace with IV as needed-but can restart home p.o. meds now that she will be on a diet -Hopefully the p.o. contrast from her CT scan will get things moving from below -No need for surgical consultation at this point -If not much output by tomorrow, will add MiraLAX (2) Paroxysmal atrial fibrillation: Plan: Developed rapid atrial fibrillation with rates in the 130s on the afternoon of 10/17 Fairly asymptomatic except for mild palpitations Given 1 dose of IV Lopressor 5 mg and converted back to normal sinus rhythm within a few minutes Transferred to telemetry Replace magnesium with 1 g of magnesium sulfate, gave 40 mEq p.o. potassium chloride -Start metoprolol 25 mg p.o. 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 (7) Depression: Plan: Restart home Lexapro now that she is tolerating p.o. (8) Anxiety: Plan: Restart home p.o. lorazepam now that she is tolerating p.o. (9) Hypothyroid: Plan: Restart home levothyroxine on that she is tolerating p.o. TSH recently normal at 3.1 and 06/2021 (10) Pulmonary hypertension: Plan: Mild No treatment needed (11) History of pulmonary embolism: Plan: Many years ago, not on current anticoagulation SCDs and Lovenox SQ ordered for DVT prophylaxis Plan: Disposition-transfer to PCU for telemetry monitoring given rapid atrial fibrillation Full code, but would not want prolonged life support if has a poor prognosis for recovery Discussed her care at length with her on the phone and then her daughter, Camille, on the phone Camille is not listed in the chart but her phone number is [phone] Admission and Anticipated Discharge Date Admission Date: October 16, 2021 Subjective Patient had some nausea this morning but received a dose of Zofran and Compazine and now it is resolved. She is starting to pass some stool in her ostomy and her abdominal pain is resolved. Her abdominal distention is also improved. She feels like she is ready to try some clear liquids. She did however go into rapid atrial fibrillation as noted by the RN during vital signs with a heart rate in the 130s. She does report some mild palpitations but otherwise denies chest pain, no shortness of breath, no lightheadedness. She reports that at home at times she will have palpitations and feels like her heart skips a beat but has never been diagnosed with atrial fibrillation in the past. She has no issues with major bleeding in the past. She was transferred to PCU and given a dose of IV Lopressor shortly afterwards she converted back to normal sinus rhythm. Review of Systems Review of Systems: All systems reviewed & are unremarkable except as noted in HPI & below Physical Exam Constitutional: WD/WN, vitals as above Eyes: + anicteric sclerae; no conjunctival abnormality ENMT: external ear and nose normal, oropharynx normal Neck: trachea midline, no thyromegaly Respiratory: normal respiratory effort, lungs clear to auscultation Cardiovascular: Rate/Rhythm: + tachycardic and + irregularly irregular Heart Sounds: no murmur Chest (Breasts): Chest: normal inspection of chest Gastrointestinal (Abdomen): Inspection/Auscultation: normal bowel sounds; + abdomen abnormal to inspection (Colostomy bag with small amount of brown formed stool and gas) and abdomen not distended Percussion/Palpation: abdomen soft; abdomen nontender and no guarding Musculoskeletal: Extremities: extremities normal to inspection; no cyanosis and no clubbing Skin: no rashes, warm and dry Neurologic: moves all extremities and awake; no focal motor deficits Psychiatric: A+Ox3, euthymic affect Lymphatic: no lymphedema Results & Data Results & Data ([facility]) Vital Signs (Past 12 Hours) Vital Signs Temp Pulse Pulse Resp BP Pulse Ox Pulse Ox 10/17/21 15:08 36.7 C 120 H 18 148/86 H 94 10/17/21 08:17 96 10/17/21 08:13 36.4 C L 72 72 12 128/96 96 10/17/21 06:55 36.6 C 62 16 159/73 H 90 Laboratory Results 10/17/21 10/17/21 Range/Units 05:32 05:32 WBC 6.72 (4.8-10.8) K/uL RBC 3.83 L (4.2-5.4) M/uL Hgb 12.5 (12.0-16.0) g/dL Hct 39.1 (37-47) % MCV 102.1 H (80-100) fL MCH 32.6 (25-34) pg MCHC 32.0 (32-36) g/dL RDW Std Deviation 50.6 H (36.4-46.3) fL RDW Coeff of Hubert 13.7 (11.5-14.5) % Plt Count 204 (130-400) K/uL MPV 8.9 (7.4-10.4) fL Immature Gran % (Auto) 0.1 % Neut % (Auto) 72.6 % Lymph % (Auto) 15.5 % Roberts % (Auto) 7.6 % Eos % (Auto) 3.9 % Baso % (Auto) 0.3 % Neut # (Auto) 4.88 (1.4-6.5) K/uL Lymph # (Auto) 1.04 L (1.2-3.4) K/uL Roberts # (Auto) 0.51 (0.11-0.59) K/uL Eos # (Auto) 0.26 (0-0.5) K/uL Baso # (Auto) 0.02 (0-0.2) K/uL Immature Gran # (Auto) 0.01 (0.00-0.02) K/uL Sodium 139 (136-145) mmol/L Potassium 3.5 (3.5-5.1) mmol/L Chloride 105 (98-107) mmol/L Carbon Dioxide 29 (21-32) mmol/L Anion Gap 5.0 (3-11) BUN 8 D (7-18) mg/dl Creatinine 0.69 (0.6-1.2) mg/dl Est Cr Clr Drug Dosing 43.6 ml/min Est GFR ( Amer) 92.6 ml/min Est GFR (Non-Af Amer) 79.9 ml/min BUN/Creatinine Ratio 11.7 (10-20) Glucose 97 (70-99) mg/dl Calcium 8.6 (8.5-10.1) mg/dl Phosphorus 2.6 (2.5-4.9) mg/dl Magnesium 1.8 (1.8-2.4) mg/dl Diagnostic Findings KUB x-ray reviewed by me personally agree with following report: KUB X-Ray 10/17/21 10:12 XR KUB/Abdomen 1 view CLINICAL HISTORY: f/u Partial SBO TECHNIQUE: 1 view of the abdomen was obtained. Comparison: None available at the time of this dictation. FINDINGS: Lung bases are unremarkable. The osseous structures are grossly unremarkable. The bowel gas pattern is nonobstructive. Enteric contrast is noted in the large bowel. IMPRESSION: Nonobstructive bowel gas pattern. ACT 112: Negative or not required by law. Electronically signed by: Philippe Beltre M.D. 10/17/2021 10:59 AM PG Care Time/CCT Total # of Minutes Spent Total Time Spent with Patient: Total time spent is greater than 50% in coordination of care (as documented) at patient's floor/unit and/or counseling patient: Coding Level of Care Code 64612 Subseq Hosp Care Lvl 3 Diagnoses Partial small bowel obstruction K56.600 Leukocytosis D72.[address] Z93.3 HTN (hypertension) I10 GERD (gastroesophageal reflux disease) K21.9 Depression F32.9 Anxiety F41.9 Hypothyroid E03.9 Pulmonary hypertension I27.20 History of pulmonary embolism Z86.711 Paroxysmal atrial fibrillation I48.0
[2021-10-17] MEDS: METOPROLOL TARTRATE 25 MG TAB PO SCH ×2 (18:26→20:25)
[2021-10-17] MEDS: ENOXAPARIN INJ 60 MG/0.6 ML SYR SQ SCH ×2 (18:28→18:31)
[2021-10-17] MEDS: LORazepam 1 MG TAB PO SCH (20:25)
[2021-10-18] MEDS: ENOXAPARIN INJ 60 MG/0.6 ML SYR SQ SCH (05:00)
[2021-10-18] MEDS: LEVOTHYROXINE SODIUM 25 MCG TABLET PO SCH (05:01)
[2021-10-18] MEDS: hydrALAZINE HCL 20 MG/ML VIAL IV PRN (05:02)
[2021-10-18] MEDS: LORazepam 1 MG TAB PO SCH ×3 (05:33→20:53)
[2021-10-18] MEDS: ONDANSETRON INJ 2 MG/ML 2 ML VIAL IV PRN (06:47)
[2021-10-18] MEDS: PROCHLORPERAZINE 10 MG in SYRINGE 8 ML IV PRN (07:15)
[2021-10-18 07:31] LABS: Basophils # (auto) 0.02 K/uL (0-0.2); Basophils % (auto) 0.2 %; Eosinophils # (auto) 0.07 K/uL (0-0.5); Eosinophils % (auto) 0.7 %; Hematocrit (blood only) 41.7 % (37-47); Hemoglobin 13.7 g/dL (12.0-16.0); Immature Granulocytes # (auto) 0.03 K/uL (0.00-0.02); Immature Granulocytes % (auto) 0.3 %; Lymphocytes # (auto) 0.92 K/uL (1.2-3.4); Lymphocytes % (auto) 9.8 %; Mean Corpuscular Hemoglobin 32.8 pg (25-34); Mean Corpuscular Hgb Conc 32.9 g/dL (32-36); Mean Corpuscular Volume 99.8 fL (80-100); Monocytes # (auto) 0.67 K/uL (0.11-0.59); Monocytes % (auto) 7.1 %; Neutrophils # (auto) 7.68 K/uL (1.4-6.5); Neutrophils % (auto) 81.9 %; Platelet Count 234 K/uL (130-400); RDW Coefficient of Variation 13.6 % (11.5-14.5); RDW Standard Deviation 49.1 fL (36.4-46.3); Red Blood Count 4.18 M/uL (4.2-5.4); White Blood Count 9.39 K/uL (4.8-10.8)
[2021-10-18] MEDS ORDERED: LORazepam 1 MG TAB PO STA (07:38)
[2021-10-18 08:13] LABS: Calcium 9.2 mg/dl (8.5-10.1); Creatinine Clr Calc Pharmacy 35.4 ml/min; Est GFR (African American) 72.9 ml/min; Est GFR (Non-African American) 62.9 ml/min; Phosphorus 2.5 mg/dl (2.5-4.9)
[2021-10-18 08:53] LABS: Potassium 3.2 mmol/L (3.5-5.1)
[2021-10-18 08:54] LABS: Magnesium 1.7 mg/dl (1.8-2.4)
[2021-10-18] MEDS: LACTATED RINGER'S 1,000 ML IV SCH (09:06)
[2021-10-18] MEDS: METOPROLOL TARTRATE 25 MG TAB PO SCH ×2 (09:07→20:15)
[2021-10-18] MEDS: PANTOprazole 40 MG TAB PO SCH (09:07)
[2021-10-18] MEDS: ESCITALOPRAM OXALATE 10 MG TAB PO SCH (09:07)
--- NOTE | 2021-10-18 09:08 | XCELERA ---
[id number] \\[id number]
[2021-10-18] MEDS ORDERED: POTASSIUM CHLORIDE CRTAB 20 MEQ TABCR PO STA (10:39)
[2021-10-18] MEDS ORDERED: MAGNESIUM SULFATE / D5W 1 GM/100 ML BAG IV ONE (11:00)
--- NOTE | 2021-10-18 11:22 | XRay Report ---
KUB HISTORY: Small bowel obstruction. Follow-up. COMPARISON: KUB 10/17/2021. Abdomen and pelvis CT 10/16/2021. FINDINGS: No dilated loops of bowel to suggest an obstruction. Prior cholecystectomy. Surgical clips again noted within the deep pelvis. There is a left lower quadrant ostomy again noted. No renal calc esperanza. No ureteral calculi. No pneumoperitoneum or pneumatosis. IMPRESSION: No dilated loops of bowel to suggest an obstruction. ACT 112: Negative or not required by law. Electronically signed by: Yaya Whittington M.D. 10/18/2021 11:20 AM
[2021-10-18] MEDS: ACETAMINOPHEN 1000 MG/100 ML IV IV PRN (11:43)
--- NOTE | 2021-10-18 13:59 | Hospitalist Progress Note ---
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 and given IV fluids. She had some nausea the next morning but this resolved. Had some more nausea this AM which resolved with an extra dose of ativan at her request (benzo dependent, takes 1-2 mg at a time at home) Abdominal distention is resolved and she is now passing large amounts of stool and gas in her colostomy bag. Abdominal pain is resolved KUB on 10/17 without any obstruction and with moderate amount of stool in the colon on the right KUB 10/18 no obstruction Now with low grade temp, nausea, headache, nasal congestion--> check COVID test -Advance diet to full liquids now and low fiber later today or in the AM if tolerating fulls -Monitor for continued ostomy output -Pain control with IV morphine as needed -IV Zofran and IV Compazine as needed for nausea -dc maintenance fluids -Follow CBC, BMP, magnesium, phosphorus and replace electrolytes as needed -have since restarted all po meds from home (2) Paroxysmal atrial fibrillation: Plan: Developed rapid atrial fibrillation with rates in the 130s on the afternoon of 10/17 Fairly asymptomatic except for mild palpitations Given 1 dose of IV Lopressor 5 mg and converted back to normal sinus rhythm within a few minutes Transferred to telemetry-none further since then Replaced magnesium with 1 g of magnesium sulfate, gave 40 mEq p.o. potassium chloride yesterday and again today ECHO with mod Pulm HTN, hyperdynamic EF > 70% -Started metoprolol 25 mg p.o. 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: Plan: As above Had 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 incontinence (5) Headache: Plan: started on mid day 6 with low grade temp, nasal congestion COVID test neg on admission, but will repeat now tylenol and add fioricet x 1 as she takes at home for HAs (6) Hypokalemia: Plan: replace with po KCl follow BMP, Mag (7) Hypomagnesemia: Plan: replace with IV mag sulfate follow Mag level (8) HTN (hypertension): Plan: Blood pressures are elevated here -restart home amlodipine - has been started on metoprolol for atrial fibrillation -Can give IV hydralazine as needed for severely elevated blood pressures (9) History of pulmonary embolism: Plan: Many years ago, not on current anticoagulation SCDs and Lovenox SQ ordered for DVT prophylaxis (10) Anxiety: Plan: continue lorazepam 1mg po tid as she takes at home, but states she occasionally takes 2mg at once (11) Depression: Plan: continue home Lexapro 5mg daily (12) GERD (gastroesophageal reflux disease): Plan: Continue PPI (13) Hypothyroid: Plan: continue home levothyroxine TSH recently normal at 3.1 and 06/2021 (14) Pulmonary hypertension: Plan: mod No treatment needed (15) Abnormal urinalysis: Plan: contaminated with epithelial cells Ur cx reflexively sent but no symptoms and would not treat Plan: Disposition-continue PCU for telemetry monitoring given rapid atrial fibrillation Full code, but would not want prolonged life support if has a poor prognosis for recovery Admission and Anticipated Discharge Date Admission Date: October 16, 2021 Subjective [place] nauseated this AM but needed extra ativan, states sometimes she takes ativan 2mg at the same time at home. Nausea and high BP improved after second dose of ativan. Has had a lot of stool output and she has no abd pain. No CP or SOB. Is however having nasal congestion and a headache now, and a low grade fever today at lunchtime She seems irritable today. Tele with NSR and SB, converted to sinus after transfer to tele yesterday and none further since then. Review of Systems Review of Systems: All systems reviewed & are unremarkable except as noted in HPI & below Physical Exam Constitutional: WD/WN, vitals as above Eyes: + anicteric sclerae; no conjunctival abnormality ENMT: external ear and nose normal, oropharynx normal Neck: trachea midline, no thyromegaly Respiratory: normal respiratory effort, lungs clear to auscultation Cardiovascular: RRR, no murmur, no edema Chest (Breasts): Chest: normal inspection of chest Gastrointestinal (Abdomen): Inspection/Auscultation: normal bowel sounds; + abdomen abnormal to inspection (Colostomy bag full of gas and loose green stool) and abdomen not distended Percussion/Palpation: abdomen soft; abdomen nontender and no guarding Musculoskeletal: Extremities: extremities normal to inspection; no cyanosis and no clubbing Skin: no rashes, warm and dry Neurologic: moves all extremities and awake; no focal motor deficits Psychiatric: Orientation: alert and oriented x 3 Speech: normal rate/rhythm/volume of speech Affect: + irritable affect Lymphatic: no lymphedema Results & Data Results & Data ([facility]) Vital Signs (Past 12 Hours) Vital Signs Temp Pulse Pulse Resp BP Pulse Ox 10/18/21 12:25 37.6 C H 85 20 156/75 H 92 10/18/21 08:03 36.3 C L 93 H 20 156/82 H 94 10/18/21 07:30 101 H 10/18/21 04:58 36.9 C 81 19 188/116 H 98 Laboratory Results 10/18/21 10/18/21 10/18/21 Range/Units 08:29 07:23 07:23 WBC 9.39 (4.8-10.8) K/uL RBC 4.18 L (4.2-5.4) M/uL Hgb 13.7 (12.0-16.0) g/dL Hct 41.7 (37-47) % MCV 99.8 (80-100) fL MCH 32.8 (25-34) pg MCHC 32.9 (32-36) g/dL RDW Std Deviation 49.1 H (36.4-46.3) fL RDW Coeff of Hubert 13.6 (11.5-14.5) % Plt Count 234 (130-400) K/uL MPV 9.0 (7.4-10.4) fL Immature Gran % (Auto) 0.3 % Neut % (Auto) 81.9 % Lymph % (Auto) 9.8 % Roosevelt % (Auto) 7.1 % Eos % (Auto) 0.7 % Baso % (Auto) 0.2 % Neut # (Auto) 7.68 H (1.4-6.5) K/uL Lymph # (Auto) 0.92 L (1.2-3.4) K/uL Roosevelt # (Auto) 0.67 H (0.11-0.59) K/uL Eos # (Auto) 0.07 (0-0.5) K/uL Baso # (Auto) 0.02 (0-0.2) K/uL Immature Gran # (Auto) 0.03 H (0.00-0.02) K/uL Sodium 139 (136-145) mmol/L Potassium 3.2 L (3.5-5.1) mmol/L Chloride 102 (98-107) mmol/L Carbon Dioxide 29 (21-32) mmol/L Anion Gap 8.0 (3-11) BUN 8 (7-18) mg/dl Creatinine 0.85 (0.6-1.2) mg/dl Est Cr Clr Drug Dosing 35.4 ml/min Est GFR ( Amer) 72.9 ml/min Est GFR (Non-Af Amer) 62.9 ml/min BUN/Creatinine Ratio 9.0 L (10-20) Glucose 148 H (70-99) mg/dl Calcium 9.2 (8.5-10.1) mg/dl Phosphorus 2.5 (2.5-4.9) mg/dl Magnesium 1.7 L (1.8-2.4) mg/dl PG Care Time/CCT Total # of Minutes Spent Total Time Spent with Patient: Total time spent is greater than 50% in coordination of care (as documented) at patient's floor/unit and/or counseling patient: Coding Level of Care Code 83293 Subseq Hosp Care Lvl 3 Diagnoses Partial small bowel obstruction K56.600 Paroxysmal atrial fibrillation I48.0 Leukocytosis D72.[address] Z93.3 HTN (hypertension) I10 GERD (gastroesophageal reflux disease) K21.9 Depression F32.9 Anxiety F41.9 Hypothyroid E03.9 Pulmonary hypertension I27.20 History of pulmonary embolism Z86.711 Headache R51.9 Hypokalemia E87.6 Hypomagnesemia E83.42 Abnormal urinalysis R82.90
[2021-10-18] MEDS ORDERED: BUTALBITAL/ACETAMIN/CAFFEINE TAB PO PRN (14:07)
[2021-10-18 15:07] LABS: Influenza A virus by PCR Negative (Neg); Influenza B virus by PCR Negative (Neg); RSV by PCR Negative (Neg); SARS CoV2 RNA(COVID-19) InHosp NEGATIVE (Negative)
--- NOTE | 2021-10-18 16:13 | Cardiology Consultation ---
Date of Consultation October 18, 2021 Assessment & Plan (1) Paroxysmal atrial fibrillation: (2) HTN (hypertension): (3) Pulmonary hypertension: (4) Partial small bowel obstruction: ASSESSMENT/PLAN: 1. Paroxysmal atrial fibrillation: She spontaneously converted to sinus rhythm after several hours. She was symptomatic but also reports less significant symptoms at home previously. Therefore, cannot exclude that this is paroxysmal even prior to this hospitalization. For that reason, would recommend anticoagulation for stroke risk reduction as she does have elevated chads Vasc score. She was agreeable. Continue beta-derian. 2. Pulmonary hypertension: Has a history of PE. Today's echo demonstrated more elevated RVSP than what was previously seen in the past. Given paroxysmal AFib and pulmonary hypertension, could consider outpatient sleep study if not previously done through her PCP. 3. Hypertension: Blood pressure mildly elevated, and at times more significantly elevated. Can titrate antihypertensive regimen as appropriate. 4. Partial small-bowel obstruction: As per primary service. 5. Disposition: Can follow-up in the cardiology outpatient office on discharge. Cardiology will sign off at this time. Please call with any other questions or concerns. Patient care communicated with Dr. Cleveland of the primary hospitalist service. Thank you for allowing me to participate in the care of your patient. Please call for any other questions or concerns. Sincerely, Shankar Gold M.D. History of Present Illness Reason for Consultation: "New onset rapid atrial fibrillation" Requesting Physician: Lenora Cleveland MD Attending Physician: Lenora Cleveland MD History of Present Illness Ms. Rader is a pleasant 86-year-old female with a history significant for hypertension, pulmonary embolism (years ago), colostomy, and hiatal hernia. She was admitted on 10/16/2021 with partial small-bowel obstruction after presenting with abdominal discomfort. While here, she was noted to be in atrial fibrillation with rapid ventricular response on 10/17/2021 after presenting in sinus rhythm. Her initial ECG during this hospital stay demonstrated sinus bradycardia. She admits that she was symptomatic feeling palpitations as though her heart was beating fast. She also has felt palpitations at home although they have been more short lived. Prior palpitations were described as fast heartbeats. She also has had chronic skipp ed beats that felt different. Yesterday's event was her longest episode of palpitations. There was associated nausea but no chest pain or shortness of breath. She spontaneously converted to sinus rhythm at approximately 6:18 p.m. on 10/17/2021. She has remained in sinus rhythm based on telemetry reviewed this morning. She denies a history of stroke or TIA. She denies diabetes or heart failure. She occasionally will go for a walk. She has help from her daughter in regards to her home duties. She denies exertional chest pain or shortness of breath. She denies syncope, near-syncope, edema, or bleeding such as melena, hematochezia, or hematuria. Her abdominal pain has improved. She has had nausea but no vomiting. Review of systems: As above. Review of systems otherwise negative/unremarkable. Family history: No known premature CAD. Social history: She denies tobacco, alcohol, or drug abuse. She lives home alone with her dog. She is a . Her on 10/25/2020. She had 3 daughters and 2 sons. One daughter with lung cancer. She was unaccompanied in her hospital room. Allergies Allergy/AdvReac Type Severity Reaction Status Date / Time verapamil Allergy Severe "THINGS Verified 10/16/21 11:45 STARTED TO SHUT DOWN-HEART, B/P TILL GOT TO ER". aspirin AdvReac Unknown GI UPSET, Verified 10/16/21 11:45 TAKES BABY ASA WITHOUT PROB Home Medications Medication Instructions Recorded Confirmed Type amlodipine 5 mg tablet (Norvasc) 5 mg PO QAM 07/03/18 10/16/21 History aspirin 81 mg tablet,delayed 81 mg PO QAM 07/03/18 10/16/21 History release levothyroxine 25 mcg tablet 25 mcg PO QAM 07/03/18 10/16/21 History lorazepam 1 mg tablet 1 mg PO TID 07/03/18 10/16/21 History pantoprazole 20 mg tablet,delayed 40 mg PO QAM 07/03/18 10/16/21 History release (Protonix) promethazine 25 mg tablet 25 mg PO Q4H PRN 07/03/18 10/16/21 History hhiamldvdo-jrkbccgblkgnd-uhhhihvd 1 tab PO Q4H PRN 12/07/20 10/16/21 History 50 mg-325 mg-40 mg tablet potassium chloride 8 mEq 16 meq PO QAM 12/07/20 10/16/21 History tablet,extended release amlodipine 5 mg tablet 5 mg PO DAILY PRN 10/15/21 10/16/21 History escitalopram oxalate 5 mg tablet 5 mg PO QAM 10/15/21 10/16/21 History oxybutynin chloride 10 mg 10 mg PO HS 10/15/21 10/16/21 History tablet,extended release 24 hr Patient History Medical History (Updated 10/18/21 @ 14:25 by Lenora Cleveland MD) Anxiety Chronic back pain PAIN TO BOTH LEGS Chronic nausea Colostomy in place Depression GERD (gastroesophageal reflux disease) History of palpitations "skips beats" Hypertension Lung nodules previously biopsied - benign Migraine Osteoarthritis Paroxysmal atrial fibrillation Poor historian Pulmonary embolism 4-5 years ago - asymptomatic - incidental finding - treated w/ blood thinners x 6 months, cause? Trouble swallowing CERTAIN FOODS WILL STICK WHEN SWALLOWING Weight loss 30+ lb weight loss in lst 6 months Surgical History History of bronchoscopy History of colonoscopy History of colostomy 10 -12years - placed b/c of incontinence (cause??) History of esophagogastroduodenoscopy (EGD) w/ dilatation History of hernia repair History of Lloyd fundoplication History of surgery left elbow Hx of bladder repair surgery FOR SUPPORT Hx of cholecystectomy Hx of thyroidectomy PARTIAL Hx of tonsillectomy Nausea and vomiting after administration of anesthetic agent S/P ANKIT-BSO HX Family History Mother Hypertension Cancer Father Cancer Other No family history of adverse response to anesthesia No family history of bleeding disorder Social History Smoking Status: Never smoker Second Hand Exposure: No; Do You Dip or Chew Tobacco: No; Tobacco Cessation Education Requested by Patient: No Hx Alcohol Use: Yes Alcohol type: wine Hx Substance Use: No Preferred Language: Malagasy Communication Ability: Effective Interactive Marketing Strategist Required: No Beliefs That Will Affect Care: None Current Living Situation: Alone Other Information That Helps Us Care for You: No Feels Safe at Home: Yes Safety Concerns: Feels Safe At This Time Physical Exam Physical Exam: Gen.: No acute distress. Alert and oriented. HEENT: Anicteric sclera. Neck: No JVD. Right carotid bruit. Normal carotid upstrokes bilaterally. Cardiac: No ventricular heave. Regular. Normal S1-S2. 1/6 systolic murmur. No rubs or gallops. Pulmonary: Clear to auscultation bilaterally without wheezes, rales, or rhonchi. Abdomen: Soft, nontender, nondistended, with hypoactive bowel sounds. No bruits noted. Extremities: 2+ radial pulses bilaterally. 2+ posterior tibialis pulses bilaterally. No edema or cyanosis. Psychiatric: Affect appears appropriate. Results & Data ([facility]) Vital Signs (Past 12 Hours) Vital Signs Temp Pulse Pulse Resp BP Pulse Ox 10/18/21 14:18 37.6 C H 10/18/21 12:25 37.6 C H 85 20 156/75 H 92 10/18/21 08:03 36.3 C L 93 H 20 156/82 H 94 10/18/21 07:30 101 H 10/18/21 04:58 36.9 C 81 19 188/116 H 98 Intake & Output 10/16/21 10/17/21 10/18/21 10/19/21 06:59 06:59 06:59 06:59 Intake Total 1999 / 1999 1200 / 1200 1241.333 / 1241.333 Output Total 850 / 850 1151 / 1151 100 / 100 Balance 1150 / 1150 49 / 49 1141.333 / 1141.333 Weight 105 lb 6.095 oz Laboratory Results Laboratory Results - last 24 hr 10/18/21 10/18/21 10/18/21 07:23 07:23 08:29 WBC 9.39 RBC 4.18 L Hgb 13.7 Hct 41.7 MCV 99.8 MCH 32.8 MCHC 32.9 RDW Std Deviation 49.1 H RDW Coeff of Hubert 13.6 Plt Count 234 MPV 9.0 Immature Gran % (Auto) 0.3 Neut % (Auto) 81.9 Lymph % (Auto) 9.8 [place] % (Auto) 7.1 Eos % (Auto) 0.7 Baso % (Auto) 0.2 Neut # (Auto) 7.68 H Lymph # (Auto) 0.92 L [place] # (Auto) 0.67 H Eos # (Auto) 0.07 Baso # (Auto) 0.02 Immature Gran # (Auto) 0.03 H Sodium 139 Potassium 3.2 L Chloride 102 Carbon Dioxide 29 Anion Gap 8.0 BUN 8 Creatinine 0.85 Est Cr Clr Drug Dosing 35.4 Est GFR ( Amer) 72.9 Est GFR (Non-Af Amer) 62.9 BUN/Creatinine Ratio 9.0 L Glucose 148 H Calcium 9.2 Phosphorus 2.5 Magnesium 1.7 L SARS-CoV-2 (PCR) Influenza Type A (PCR) Influenza Type B (PCR) RSV (RT-PCR) 10/18/21 Unknown WBC RBC Hgb Hct MCV MCH MCHC RDW Std Deviation RDW Coeff of Hubert Plt Count MPV Immature Gran % (Auto) Neut % (Auto) Lymph % (Auto) [place] % (Auto) Eos % (Auto) Baso % (Auto) Neut # (Auto) Lymph # (Auto) [place] # (Auto) Eos # (Auto) Baso # (Auto) Immature Gran # (Auto) Sodium Potassium Chloride Carbon Dioxide Anion Gap BUN Creatinine Est Cr Clr Drug Dosing Est GFR ( Amer) Est GFR (Non-Af Amer) BUN/Creatinine Ratio Glucose Calcium Phosphorus Magnesium SARS-CoV-2 (PCR) NEGATIVE Influenza Type A (PCR) Negative Influenza Type B (PCR) Negative RSV (RT-PCR) Negative Diagnostic Findings CT abdomen/pelvis 10/16/2021: Partial small-bowel obstruction per Radiology. Moderate hiatal hernia. Telemetry personally reviewed: Atrial fibrillation converted to sinus rhythm on 10/17/2021 at approximately 6:18 p.m.. Echo 10/18/2021: Small LV size with hyperdynamic systolic function. EF > 70%. RV appeared dilated. Sclerotic aortic valve. Moderate pulmonary hypertension. ECGs personally reviewed: ECG 10/16/2021 at 10:14 a.m.: Sinus bradycardia with first-degree AV block 49 beats per minute. Septal infarct. Nonspecific ST abnormality. ECG 10/17/2021 at 3:37 p.m.: AFib/flutter 135 beats per minute. Inferolateral ST/T-wave abnormality. Medications Administered Current Inpatient Medications Acetaminophen (Acetaminophen 325 Mg Tab) 650 mg PO Q4H PRN PRN Reason: Pain Stop: 11/17/21 15:59 Acetaminophen/Butalbital/Caffeine (Butalbital/Acetamin/Caffeine Tab) 1 tab PO Q4H PRN PRN Reason: Headache Stop: 11/17/21 14:06 Last Admin: 10/18/21 15:25 Dose: 1 tab Documented by: Amlodipine Besylate (Amlodipine Besylate 5 Mg Tab) 5 mg PO QAM [facility] Stop: 11/17/21 14:29 Apixaban (Apixaban 2.5 Mg Tab) 2.5 mg PO BID [facility] Stop: 11/17/21 20:59 Escitalopram Oxalate (Escitalopram Oxalate 10 Mg Tab) 5 mg PO QAM [facility] Stop: 11/17/21 08:59 Last Admin: 10/18/21 09:07 Dose: 5 mg Documented by: Hydralazine HCl (Hydralazine Hcl 20 Mg/Ml Vial) 10 mg IV Q8H PRN PRN Reason: SBP>180 Stop: 11/15/21 18:23 Last Admin: 10/18/21 05:02 Dose: 10 mg Documented by: Prochlorperazine 10 mg/ (Syringe) 10 mls @ 5 mls/min IV Q6H PRN PRN Reason: Nausea And Vomiting Stop: 11/16/21 12:07 Last Admin: 10/18/21 07:15 Dose: 5 mls/min Documented by: Levothyroxine Sodium (Levothyroxine Sodium 25 Mcg Tablet) 25 mcg PO DAILYBB [facility] Stop: 11/17/21 06:29 Last Admin: 10/18/21 05:01 Dose: 25 mcg Documented by: Lorazepam (Lorazepam 1 Mg Tab) 1 mg PO TID [facility] Stop: 11/16/21 20:59 Last Admin: 10/18/21 05:33 Dose: 1 mg Documented by: Metoprolol Tartrate (Metoprolol Tartrate 25 Mg Tab) 25 mg PO BID [facility] Stop: 11/16/21 17:25 Last Admin: 10/18/21 09:07 Dose: 25 mg Documented by: Morphine Sulfate (Morphine Sulfate 2 Mg/Ml Carp) 2 mg IV Q4 PRN PRN Reason: pain Stop: 10/30/21 18:23 Last Admin: 10/17/21 10:01 Dose: 2 mg Documented by: Ondansetron HCl (Ondansetron Inj 2 Mg/Ml 2 Ml Vial) 4 mg IV Q6H PRN PRN Reason: Nausea Stop: 11/15/21 18:23 Last Admin: 10/18/21 06:47 Dose: 4 mg Documented by: Pantoprazole Sodium (Pantoprazole 40 Mg Tab) 40 mg PO QAM [facility] Stop: 11/17/21 08:59 Last Admin: 10/18/21 09:07 Dose: 40 mg Documented by: PG Care Time/CCT Total # of Minutes Spent Total Time Spent with Patient: Total time spent is greater than 50% in coordination of care (as documented) at patient's floor/unit and/or counseling patient: Coding Level of Care Code 85374 Initial Inpt Care Lvl 2 Diagnoses Paroxysmal atrial fibrillation I48.0 HTN (hypertension) I10 Pulmonary hypertension I27.20 Partial small bowel obstruction K56.600
[2021-10-18] MEDS: amLODIPine BESYLATE 5 MG TAB PO SCH (16:25)
[2021-10-18] MEDS: APIXABAN 2.5 MG TAB PO SCH (20:15)
--- NOTE | 2021-10-18 21:34 | Electrocardiogram Report ---
Test Reason : Blood Pressure : / mmHG Vent. Rate : 135 BPM Atrial Rate : 277 BPM P-R Int : 000 ms QRS Dur : 064 ms QT Int : 320 ms P-R-T Axes : 000 042 215 degrees QTc Int : 480 ms Poor data quality, interpretation may be adversely affected Atrial fibrillation with rapid ventricular response Abnormal ECG When compared with ECG of 16-OCT-2021 10:14, Atrial fibrillation has replaced Sinus rhythm Inferolateral ST/T wave abnormality is now more evident Confirmed by Khoa Gold ([id number]) on 10/18/2021 9:33:37 PM Referred By: REFERRED SELF Confirmed By:Khoa Gold
[2021-10-19] MEDS: METOPROLOL TARTRATE 1 MG/ML VIAL IV PRN ×3 (02:26→02:55)
[2021-10-19] MEDS: ACETAMINOPHEN 325 MG TAB PO PRN ×2 (02:52→19:53)
[2021-10-19] MEDS: LEVOTHYROXINE SODIUM 25 MCG TABLET PO SCH (05:45)
[2021-10-19 07:09] LABS: Basophils # (auto) 0.02 K/uL (0-0.2); Basophils % (auto) 0.2 %; Eosinophils # (auto) 0.22 K/uL (0-0.5); Eosinophils % (auto) 2.7 %; Hematocrit (blood only) 40.5 % (37-47); Hemoglobin 13.5 g/dL (12.0-16.0); Immature Granulocytes # (auto) 0.01 K/uL (0.00-0.02); Immature Granulocytes % (auto) 0.1 %; Lymphocytes # (auto) 1.24 K/uL (1.2-3.4); Lymphocytes % (auto) 15.2 %; Mean Corpuscular Hemoglobin 32.8 pg (25-34); Mean Corpuscular Hgb Conc 33.3 g/dL (32-36); Mean Corpuscular Volume 98.5 fL (80-100); Mean Platelet Volume 8.8 fL (7.4-10.4); Monocytes # (auto) 0.93 K/uL (0.11-0.59); Monocytes % (auto) 11.4 %; Neutrophils # (auto) 5.74 K/uL (1.4-6.5); Neutrophils % (auto) 70.4 %; Platelet Count 236 K/uL (130-400); RDW Coefficient of Variation 13.5 % (11.5-14.5); RDW Standard Deviation 48.2 fL (36.4-46.3); Red Blood Count 4.11 M/uL (4.2-5.4); White Blood Count 8.16 K/uL (4.8-10.8)
[2021-10-19 07:37] LABS: Albumin Level 3.2 gm/dl (3.4-5.0); BUN Creatinine Ratio 7.6 (10-20); Calcium 8.8 mg/dl (8.5-10.1); Creatinine Clr Calc Pharmacy 35.8 ml/min; Est GFR (Non-African American) 63.8 ml/min; Magnesium 1.9 mg/dl (1.8-2.4); Potassium 3.2 mmol/L (3.5-5.1)
[2021-10-19 07:40] LABS: Albumin Globulin Ratio 0.8 (0.9-2); Bilirubin,Total 0.4 mg/dl (0.2-1); Globulin 3.8 gm/dl (2.5-4.0)
[2021-10-19] MEDS: ESCITALOPRAM OXALATE 10 MG TAB PO SCH (08:35)
[2021-10-19] MEDS: METOPROLOL TARTRATE 25 MG TAB PO SCH ×2 (08:35→19:56)
[2021-10-19] MEDS: PANTOprazole 40 MG TAB PO SCH (08:35)
[2021-10-19] MEDS: LORazepam 1 MG TAB PO SCH ×3 (08:35→19:56)
[2021-10-19] MEDS: APIXABAN 2.5 MG TAB PO SCH ×2 (08:36→19:56)
[2021-10-19] MEDS: amLODIPine BESYLATE 5 MG TAB PO SCH (08:37)
--- NOTE | 2021-10-19 11:52 | Hospitalist Progress Note ---
Date of Service October 19, 2021 Assessment & Plan (1) Partial small bowel obstruction: Plan: Likely secondary to adhesive disease with history of multiple abdominal surgeries to include appendectomy, cholecystectomy, ventral hernia repair, colostomy, hysterectomy Presented with abdominal distention and pain, but not much nausea and no vomiting With CT abdomen/pelvis showing partial small bowel obstruction but some contrast does reach the cecum, with moderate fecal retention noted in the right colon With leukocytosis, but no fever, no evidence of SIRS/sepsis Patient was made n.p.o. and given IV fluids. She had some nausea the next morning but this resolved. Had some more nausea this AM which resolved with an extra dose of ativan at her request (benzo dependent, takes 1-2 mg at a time at home) Abdominal distention is resolved and she is now passing large amounts of stool and gas in her colostomy bag. Abdominal pain is resolved KUB on 10/17 without any obstruction and with moderate amount of stool in the colon on the right KUB 10/18 no obstruction eating and drinking well, ostomy functioning, abdomen is benign she feels great, feels "normal" ready for discharge tomorrow (2) Paroxysmal atrial fibrillation: Plan: Developed rapid atrial fibrillation with rates in the 130s on the afternoon of 10/17 Fairly asymptomatic except for mild palpitations Given 1 dose of IV Lopressor 5 mg and converted back to normal sinus rhythm within a few minutes Transferred to telemetry some more paroxysmal afib over night, public service officer, rates in 120's got Lopressor 5mg IV having some conversion pauses longest was 6 seconds ECHO with mod Pulm HTN, hyperdynamic EF > 70% continue metoprolol 25 mg p.o. twice daily continue eliquis currently sinus rhythm 70s watch for 24 more hours, as long as she is stable will d/c to home in morning (3) Leukocytosis: Plan: Secondary to partial small bowel obstruction Her urinalysis is contaminant with epithelial cells, urine culture was reflexively sent but no need for treatment with antibiotics Leukocytosis now resolved as bowel obstruction is resolved Follow CBC (4) Colostomy in place: Plan: As above Had 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 incontinence (5) Headache: Plan: started on mid day 10/18 with low grade temp, nasal congestion COVID test neg on repeat no headache today (6) Hypokalemia: Plan: still low at 3.3 start on 20mEq TID BMP in morning (7) Hypomagnesemia: Plan: resolved after IV replacement (8) HTN (hypertension): Plan: Blood pressure 149 systolic today -continue home amlodipine continue metoprolol 25mg BID (9) History of pulmonary embolism: Plan: Many years ago, not on current anticoagulation will be on Eliquis for Afib (10) Anxiety: Plan: continue lorazepam 1mg po tid as she takes at home, but states she occasionally takes 2mg at once (11) Depression: Plan: continue home Lexapro 5mg daily (12) GERD (gastroesophageal reflux disease): Plan: Continue PPI (13) Hypothyroid: Plan: continue home levothyroxine TSH recently normal at 3.1 and 06/2021 (14) Pulmonary hypertension: Plan: mod No treatment needed (15) Abnormal urinalysis: Plan: contaminated with epithelial cells Ur cx reflexively sent but no symptoms and would not treat Plan: Disposition-continue PCU for telemetry monitoring given rapid atrial fibrillation and conversion pauses likely home tomorrow morning Full code, but would not want prolonged life support if has a poor prognosis for recovery Admission and Anticipated Discharge Date Admission Date: October 16, 2021 Subjective patient doing well today, eating well, ostomy functioning reviewed tele monitor with [employer], she was in and out of afib overnight and public service officer fastest rates were 120's, she was having significant pauses when converting, longest was 6 seconds reviewed chart, she is on metoprolol and Eliquis appreciate the consult from Dr Aparicio discussed plan for discharge tomorrow morning, she agrees she feels well enough to go home now, but I told her I want to make sure she stays in sinus rhythm Review of Systems Review of Systems: All systems reviewed & are unremarkable except as noted in Subjective Respiratory: no cough and no dyspnea Cardiovascular: no chest pain Gastrointestinal: no abdominal pain, no nausea, no vomiting, no constipation and no diarrhea/loose stools Physical Exam Physical Exam: General: well developed, elderly female, no acute distress, comfortable Neck: supple, trachea midline, normal thyroid Lungs: clear to auscultation bilaterally, normal respiratory effort, no accessory muscle use, no distress Heart: regular S1 and S2, no murmur, peripheral pulses normal, capillary refill normal, no edema Abdomen: soft, NT, ND, + BS, no hepatomegaly, normal to percussion, + ostomy in place, functioning Extremities: normal in appearance, no cyanosis, no petechiae, strength is 5/5 bilaterally Neuro: awake, cooperative, moves all extremities, no focal motor deficits, CN II-XII intact, sensation in extremities intact, normal speech Skin: warm, dry, no rash, normal turgor Psych: Awake, alert oriented x 3, euthymic affect Results & Data Results & Data ([facility]) Vital Signs (Past 12 Hours) Vital Signs Temp Pulse Pulse Resp BP Pulse Ox 10/19/21 09:40 60 10/19/21 08:16 37.4 C 70 18 147/81 H 95 10/19/21 03:01 37.6 C H 95 H 19 156/86 H 95 10/19/21 02:55 110 H 10/19/21 02:41 112 H 10/19/21 02:26 114 H 10/19/21 00:09 36.9 C 78 18 163/80 H 94 Laboratory Results Laboratory Results - last 24 hr 10/18/21 10/19/21 10/19/21 Unknown 06:54 06:54 WBC 8.16 RBC 4.11 L Hgb 13.5 Hct 40.5 MCV 98.5 MCH 32.8 MCHC 33.3 RDW Std Deviation 48.2 H RDW Coeff of Hubert 13.5 Plt Count 236 MPV 8.8 Immature Gran % (Auto) 0.1 Neut % (Auto) 70.4 Lymph % (Auto) 15.2 [place] % (Auto) 11.4 Eos % (Auto) 2.7 Baso % (Auto) 0.2 Neut # (Auto) 5.74 Lymph # (Auto) 1.24 [place] # (Auto) 0.93 H Eos # (Auto) 0.22 Baso # (Auto) 0.02 Immature Gran # (Auto) 0.01 Sodium 138 Potassium 3.2 L Chloride 103 Carbon Dioxide 28 Anion Gap 7.0 BUN 6 L Creatinine 0.84 Est Cr Clr Drug Dosing 35.8 Est GFR ( Amer) 74.0 Est GFR (Non-Af Amer) 63.8 BUN/Creatinine Ratio 7.6 L Glucose 123 H Calcium 8.8 Magnesium 1.9 Total Bilirubin 0.4 AST 32 ALT 31 Alkaline Phosphatase 80 Total Protein 7.0 Albumin 3.2 L Globulin 3.8 Albumin/Globulin Ratio 0.8 L SARS-CoV-2 (PCR) NEGATIVE Influenza Type A (PCR) Negative Influenza Type B (PCR) Negative RSV (RT-PCR) Negative Medications Administered Current Inpatient Medications Acetaminophen (Acetaminophen 325 Mg Tab) 650 mg PO Q4H PRN PRN Reason: Pain Stop: 11/17/21 15:59 Last Admin: 10/19/21 02:52 Dose: 650 mg Documented by: Acetaminophen/Butalbital/Caffeine (Butalbital/Acetamin/Caffeine Tab) 1 tab PO Q4H PRN PRN Reason: Headache Stop: 11/17/21 14:06 Last Admin: 10/18/21 15:25 Dose: 1 tab Documented by: Amlodipine Besylate (Amlodipine Besylate 5 Mg Tab) 5 mg PO QAM [facility] Stop: 11/17/21 14:29 Last Admin: 10/19/21 08:37 Dose: 5 mg Documented by: Apixaban (Apixaban 2.5 Mg Tab) 2.5 mg PO BID [facility] Stop: 11/17/21 20:59 Last Admin: 10/19/21 08:36 Dose: 2.5 mg Documented by: Escitalopram Oxalate (Escitalopram Oxalate 10 Mg Tab) 5 mg PO QAM [facility] Stop: 11/17/21 08:59 Last Admin: 10/19/21 08:35 Dose: 5 mg Documented by: Hydralazine HCl (Hydralazine Hcl 20 Mg/Ml Vial) 10 mg IV Q8H PRN PRN Reason: SBP>180 Stop: 11/15/21 18:23 Last Admin: 10/18/21 05:02 Dose: 10 mg Documented by: Prochlorperazine 10 mg/ (Syringe) 10 mls @ 5 mls/min IV Q6H PRN PRN Reason: Nausea And Vomiting Stop: 11/16/21 12:07 Last Admin: 10/18/21 07:15 Dose: 5 mls/min Documented by: Levothyroxine Sodium (Levothyroxine Sodium 25 Mcg Tablet) 25 mcg PO DAILYBB [facility] Stop: 11/17/21 06:29 Last Admin: 10/19/21 05:45 Dose: 25 mcg Documented by: Lorazepam (Lorazepam 1 Mg Tab) 1 mg PO TID [facility] Stop: 11/16/21 20:59 Last Admin: 10/19/21 08:35 Dose: 1 mg Documented by: Metoprolol Tartrate (Metoprolol Tartrate 25 Mg Tab) 25 mg PO BID [facility] Stop: 11/16/21 17:25 Last Admin: 10/19/21 08:35 Dose: 25 mg Documented by: Morphine Sulfate (Morphine Sulfate 2 Mg/Ml Carp) 2 mg IV Q4 PRN PRN Reason: pain Stop: 10/30/21 18:23 Last Admin: 10/17/21 10:01 Dose: 2 mg Documented by: Ondansetron HCl (Ondansetron Inj 2 Mg/Ml 2 Ml Vial) 4 mg IV Q6H PRN PRN Reason: Nausea Stop: 11/15/21 18:23 Last Admin: 10/18/21 06:47 Dose: 4 mg Documented by: Pantoprazole Sodium (Pantoprazole 40 Mg Tab) 40 mg PO QAM [facility] Stop: 11/17/21 08:59 Last Admin: 10/19/21 08:35 Dose: 40 mg Documented by: Potassium Chloride (Potassium Chloride Crtab 20 Meq Tabcr) 20 meq PO TID [facility] Stop: 11/18/21 13:59 PG Care Time/CCT Total # of Minutes Spent Total Time Spent with Patient: Total time spent is greater than 50% in coordination of care (as documented) at patient's floor/unit and/or counseling patient: Coding Level of Care Code 85357 Subseq Hosp Care Lvl 3 Diagnoses Partial small bowel obstruction K56.600 Paroxysmal atrial fibrillation I48.0 Leukocytosis D72.[address] Z93.3 Headache R51.9 Hypokalemia E87.6 Hypomagnesemia E83.42 HTN (hypertension) I10 History of pulmonary embolism Z86.711 Anxiety F41.9 Depression F32.9 GERD (gastroesophageal reflux disease) K21.9 Hypothyroid E03.9 Pulmonary hypertension I27.20 Abnormal urinalysis R82.90
[2021-10-19] MEDS: POTASSIUM CHLORIDE CRTAB 20 MEQ TABCR PO SCH ×2 (16:08→19:57)
[2021-10-19] MEDS ORDERED: amLODIPine BESYLATE 5 MG TAB PO ONE (16:30)
[2021-10-19] MEDS: hydrALAZINE HCL 20 MG/ML VIAL IV PRN (19:53)
[2021-10-20] MEDS: LEVOTHYROXINE SODIUM 25 MCG TABLET PO SCH (06:26)
--- NOTE | 2021-10-20 08:06 | Discharge Summary ---
Date of Service October 20, 2021 Admission HPI Per Admitting Provider This patient is an 86-year-old female with a history of HTN, pulmonary hypertension, depression/anxiety, GERD, hypothyroidism, PE, status post colostomy, who presents to the ER with abdominal pain. She was seen in the ER 2 days ago for similar complaints with epigastric pain that was crampy in nature and was radiating to the back-she had a CT angiogram of the chest/abdomen/pelvis which was negative at that time. She did improve and went home. The pain returned last night and she was not able to sleep all night. No nausea or vomiting, no blood in her ostomy. In the ER, she was found to have a partial small bowel obstruction on CT abdomen/pelvis with oral and IV contrast. She had an elevated white blood cell count 12.5, but electrolytes and renal function as well as LFTs and troponin were all normal. Lipase was negative. Lactate was negative. Urinalysis consistent with contamination from epithelial cells. Covid-19 test was negative. She was given IV morphine, Zofran, and lorazepam as she typically takes lorazepam daily. She was also given IV fluids. She did have some relief. NG tube not placed as she was not having any nausea or vomiting. She will be admitted for management of partial small bowel obstruction abdominal pain. Principal Diagnosis Partial small bowel obstruction Paroxysmal atrial fibrillation Discharge Exam General: well developed, elderly female, no acute distress, comfortable Neck: supple, trachea midline, normal thyroid Lungs: clear to auscultation bilaterally, normal respiratory effort, no accessory muscle use, no distress Heart: regular S1 and S2, no murmur, peripheral pulses normal, capillary refill normal, no edema Abdomen: soft, NT, ND, + BS, no hepatomegaly, normal to percussion, + ostomy in place, functioning Extremities: normal in appearance, no cyanosis, no petechiae, strength is 5/5 bilaterally Neuro: awake, cooperative, moves all extremities, no focal motor deficits, CN II-XII intact, sensation in extremities intact, normal speech Skin: warm, dry, no rash, normal turgor Psych: Awake, alert oriented x 3, euthymic affect Discharge Data Allergies Allergy/AdvReac Type Severity Reaction Status Date / Time verapamil Allergy Severe "THINGS Verified 10/16/21 11:45 STARTED TO SHUT DOWN-HEART, B/P TILL GOT TO ER". 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 and given IV fluids. She had some nausea the next morning but this resolved. Had some more nausea this AM which resolved with an extra dose of ativan at her request (benzo dependent, takes 1-2 mg at a time at home) Abdominal distention is resolved and she is now passing large amounts of stool and gas in her colostomy bag. 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 twice daily continue eliquis follow up with cardiology (3) Leukocytosis: Secondary to partial small bowel obstruction Her urinalysis is contaminant with epithelial cells, urine culture was reflexively sent but no need for treatment with antibiotics Leukocytosis now resolved as bowel obstruction is resolved Follow CBC (4) Colostomy in place: As above Had 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 incontinence (5) Headache: started on mid day 10/18 with low grade temp, nasal congestion COVID test neg on repeat no headache today (6) Hypokalemia: resolved with PO replacement (7) Hypomagnesemia: resolved after IV replacement (8) HTN (hypertension): Blood pressure 149 systolic today -continue home amlodipine continue metoprolol 25mg BID (9) History of pulmonary embolism: Many years ago, not on current anticoagulation will be on Eliquis for Afib (10) Anxiety: continue lorazepam 1mg po tid as she takes at home, but states she occas ionally takes 2mg at once (11) Depression: continue home Lexapro 5mg daily (12) GERD (gastroesophageal reflux disease): Continue PPI (13) Hypothyroid: continue home levothyroxine TSH recently normal at 3.1 and 06/2021 (14) Pulmonary hypertension: mod No treatment needed (15) Abnormal urinalysis: contaminated with epithelial cells Ur cx reflexively sent but no symptoms and would not treat d/c to home Total Time Total Time Spent Total Time Spent (In Minutes): 33 Discharge Plan Discharge Items Patient Disposition: Home - Self-Care Reason For Visit: PARTIAL SBO Discharge Diagnosis: Partial small bowel obstruction, resolved Paroxysmal atrial fibrillation Condition on Discharge: Good Goals: stay well nourished, well hydrated follow up with cardiology Activity: Resume your previous activity Weightbearing: Full weightbearing Non-emergency contact: Primary Care Provider Call non-emergency contact if: you have any medication questions Follow-up/Referrals: Merritt Zapata MD [Physician] - (3-4 weeks, any provider, follow up afib) Twila Denton MD [Primary Care Provider] - (one week, hospital follow up) Diet: Regular Addtl Attending Provider Instructions: Medications: METOPROLOL: 25mg twice a day, new medication for atrial fibrillation but also helps control blood pressure, tolerating well the past two days ELIQUIS: 2.5mg twice a day, this is blood thinner that will help prevent strokes, take twice a day, next dose due this evening AMLODIPINE: recommend taking 10mg every morning as you need it for blood pressure control Partial small bowel obstruction: resolved, recommend staying on low fiber diet for next 1-2 weeks and then advancing to regular diet stay well hydrated as dehydration can make stools harder and lead to obstruction Atrial fibrillation, paroxysmal no issues for past 24 hours on monitor, well controlled on metoprolol, continue this on discharge recommend taking Eliquis 2.5mg twice a day for stroke prevention, this was re commended by cardiology will arrange follow up with cardiology in 3-4 weeks Pending Studies at Discharge: No Stand-Alone Forms: My [facility], Smoking Cessation Medications and DC Order Prescriptions: New metoprolol tartrate 25 mg Tablet 25 mg PO BID 30 Days Qty: 60 RF: 3 Eliquis 2.5 mg Tablet 2.5 mg PO BID 30 Days Qty: 60 RF: 3 amlodipine [Norvasc] 5 mg Tablet 10 mg PO QAM 30 Days Qty: 60 RF: 3 Continued aspirin 81 mg Tablet,Delayed Release (Dr/Ec) 81 mg PO QAM RF: 0 levothyroxine 25 mcg Tablet 25 mcg PO QAM RF: 0 pantoprazole [Protonix] 20 mg Tablet,Delayed Release (Dr/Ec) 40 mg PO QAM RF: 0 promethazine 25 mg Tablet 25 mg PO Q4H PRN (Reason: Nausea) RF: 0 lorazepam 1 mg Tablet 1 mg PO TID RF: 0 [id number]-[id number]-hblm 50-325-40 mg Tablet 1 tab PO Q4H PRN (Reason: Headache) RF: 0 potassium chloride 8 mEq tablet extended release 16 meq PO QAM RF: 0 oxybutynin chloride 10 mg tablet extended release 24hr 10 mg PO HS RF: 0 escitalopram oxalate 5 mg tablet 5 mg PO QAM RF: 0 Discontinued amlodipine [Norvasc] 5 mg Tablet 5 mg PO QAM RF: 0 amlodipine 5 mg tablet 5 mg PO DAILY PRN (Reason: .SBP >150) RF: 0 Discharge Orders: Discharge Order (Routine); Ordered 10/20/21 Ordered By: Philippe Zhu Admission Data Admit Date/Time: 10/16/21 16:52 Attending Provider: Philippe Zhu Admit Provider: Lenora Cleveland Primary Care Provider: Twila Denton Other Providers: Merritt Zapata Other Interventions: Discharge Summary Assessment (RN) Last Done: 10/20/21 09:19 Coding Level of Care Code D/C DAY MANAGEMENT >30 MINS Diagnoses Partial small bowel obstruction K56.600 Paroxysmal atrial fibrillation I48.0 Leukocytosis D72.[address] Z93.3 Headache R51.9 Hypokalemia E87.6 Hypomagnesemia E83.42 HTN (hypertension) I10 History of pulmonary embolism Z86.711 Anxiety F41.9 Depression F32.9 GERD (gastroesophageal reflux disease) K21.9 Hypothyroid E03.9 Pulmonary hypertension I27.20 Abnormal urinalysis R82.90
[2021-10-20] MEDS: ACETAMINOPHEN 325 MG TAB PO PRN (08:21)
[2021-10-20] MEDS: LORazepam 1 MG TAB PO SCH (08:29)
[2021-10-20] MEDS: ESCITALOPRAM OXALATE 10 MG TAB PO SCH (08:30)
[2021-10-20] MEDS: PANTOprazole 40 MG TAB PO SCH (08:31)
[2021-10-20] MEDS: METOPROLOL TARTRATE 25 MG TAB PO SCH (08:31)
[2021-10-20] MEDS: APIXABAN 2.5 MG TAB PO SCH (08:31)
[2021-10-20] MEDS: POTASSIUM CHLORIDE CRTAB 20 MEQ TABCR PO SCH (08:34)
[2021-10-20] MEDS ORDERED: amLODIPine BESYLATE 5 MG TAB PO SCH (09:00)
== END 2021-10-20 10:50 | disposition home or self-care (01) | DRG 390 ==
LOC: ED 09:58 → 3W 16:52 → SUATTDRO 16:52 → 3W 17:45 → 3N 19:51 → 2S 10-17 17:24

== ENCOUNTER 2022-02-10 18:02 | Inpatient (IN) ==
[2022-02-10] MEDS ORDERED: SODIUM CHLORIDE 0.9% 1000ML 500 ML IV ONE (18:38)
[2022-02-10 18:53] LABS: Basophils # (auto) 0.03 K/uL (0-0.2); Basophils % (auto) 0.3 %; Eosinophils # (auto) 0.17 K/uL (0-0.5); Eosinophils % (auto) 1.8 %; Hematocrit (blood only) 45.9 % (37-47); Hemoglobin 15.3 g/dL (12.0-16.0); Immature Granulocytes # (auto) 0.02 K/uL (0.00-0.02); Immature Granulocytes % (auto) 0.2 %; Lymphocytes % (auto) 23.9 %; Mean Corpuscular Hemoglobin 31.7 pg (25-34); Mean Corpuscular Hgb Conc 33.3 g/dL (32-36); Mean Corpuscular Volume 95.2 fL (80-100); Mean Platelet Volume 9.5 fL (7.4-10.4); Monocytes # (auto) 0.99 K/uL (0.11-0.59); Monocytes % (auto) 10.7 %; Neutrophils % (auto) 63.1 %; Platelet Count 273 K/uL (130-400); RDW Coefficient of Variation 13.5 % (11.5-14.5); RDW Standard Deviation 47.3 fL (36.4-46.3); Red Blood Count 4.82 M/uL (4.2-5.4); White Blood Count 9.21 K/uL (4.8-10.8)
[2022-02-10] MEDS ORDERED: LIDOCAINE 5% 1 PATCH TD STA (18:59)
--- NOTE | 2022-02-10 19:09 | Emergency Department Note ---
History of Present Illness General Chief complaint: Dizziness Stated complaint: TACHYCARDIA Time Seen by Provider: 02/10/22 18:07 Source: patient Mode of arrival: EMS Limitations: no limitations History of Present Illness Provider complaint: tachycardia Onset (ago): unknown Associated symptoms: + chest pain, + nausea/vomiting and + shortness of breath; no cough, no fever/chills, no headaches or no weakness Treatments prior to arrival: none This is an 86 yo female who presents via EMS after going to [facility] and being found to be tachycardic. Granddaughter at bedside helps with history. Patient admits to not feeling well for "several weeks". States she hasn't had an appetite today and has been nauseated but denies vomiting. No change in output from her stoma. She states she has increased fatigue and lightheadedness. Denies fevers or other URI symptoms. No recent change in medications. Patient states she had a fast heartrate before when she was admitted and they told her she may need an ablation. Patient does take blood thinners. Pt seen during a time of high acuity and national emergency pandemic while wearing PPE. Home Medications Medication Instructions Recorded Confirmed Type levothyroxine 25 mcg tablet 25 mcg PO QAM 07/03/18 02/10/22 History lorazepam 1 mg tablet 1 mg PO TID 07/03/18 02/10/22 History pantoprazole 20 mg tablet,delayed 40 mg PO QAM 07/03/18 02/10/22 History release (Protonix) promethazine 25 mg tablet 25 mg PO Q4H PRN 07/03/18 02/10/22 History vvktzekbzz-irudorxcnhcay-umqrormg 1 tab PO Q4H PRN 12/07/20 02/10/22 History 50 mg-325 mg-40 mg tablet potassium chloride 8 mEq 16 meq PO QAM 12/07/20 02/10/22 History tablet,extended release oxybutynin chloride 10 mg 10 mg PO HS 10/15/21 02/10/22 History tablet,extended release 24 hr amlodipine 5 mg tablet (Norvasc) 10 mg PO QAM 30 Days #60 tab 10/20/21 02/10/22 Rx apixaban 2.5 mg tablet (Eliquis) 2.5 mg PO BID 30 Days #60 tab 10/20/21 02/10/22 Rx metoprolol tartrate 25 mg tablet 25 mg PO BID 30 Days #60 tab 10/20/21 02/10/22 Rx Allergies Allergy/AdvReac Type Severity Reaction Status Date / Time verapamil Allergy Severe "THINGS Verified 02/10/22 18:45 STARTED TO SHUT DOWN-HEART, B/P TILL GOT TO ER". aspirin AdvReac Unknown GI UPSET, Verified 02/10/22 18:45 TAKES BABY ASA WITHOUT PROB Past Med/Surg History Medical History Abdominal pain, epigastric Anxiety Chronic back pain PAIN TO BOTH LEGS Chronic nausea Colostomy in place Depression GERD (gastroesophageal reflux disease) History of palpitations "skips beats" Hypertension Leukocytosis Lung nodules previously biopsied - benign Migraine Osteoarthritis Paroxysmal atrial fibrillation Partial small bowel obstruction Poor historian Pulmonary embolism 4-5 years ago - asymptomatic - incidental finding - treated w/ blood thinners x 6 months, cause? Trouble swallowing CERTAIN FOODS WILL STICK WHEN SWALLOWING Weight loss 30+ lb weight loss in lst 6 months Surgical History History of bronchoscopy History of colonoscopy History of colostomy 10 -12years - placed b/c of incontinence (cause??) History of esophagogastroduodenoscopy (EGD) w/ dilatation History of hernia repair History of Lloyd fundoplication History of surgery left elbow Hx of bladder repair surgery FOR SUPPORT Hx of cholecystectomy Hx of thyroidectomy PARTIAL Hx of tonsillectomy Nausea and vomiting after administration of anesthetic agent S/P ANKIT-BSO HX Family History Mother Hypertension Cancer Father Cancer Other No family history of adverse response to anesthesia No family history of bleeding disorder Social History Smoking Status: Never smoker Second Hand Exposure: No; Hx Alcohol Use: Yes Alcohol type: wine Hx Substance Use: No Preferred Language: Pashto Communication 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: 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 Required: No Beliefs That Will Affect Care: None marital status: / Current Living Situation: Alone How many Children do You have: 4 Feels Safe at Home: Yes Safety Concerns: Feels Safe At This Time Assistive Devices: Cane Review of Systems A total of 10 systems reviewed and were otherwise negative All systems reviewed & are unremarkable except as noted in HPI & below Physical Exam Vital Signs Vital Signs - 24 hr 02/10/22 18:11 02/10/22 18:14 02/10/22 19:14 Temperature 37 C Temperature Source Oral Pulse Rate Pulse Rate [Apical] 152 H Pulse Rate from SpO2 Sensor Pulse Rhythm [Apical] Regular Pulse Strength [Apical] Normal Respiratory Rate 16 Respiratory Effort / Characteristics Non-Labored Spontaneous Respiratory Depth Normal Respiratory Pattern Regular Blood Pressure Blood Pressure [Right Arm] 117/86 Blood Pressure Mean Blood Pressure Mean [Right Arm] 96 Blood Pressure Position [Right Arm] Semi-fowlers Pulse Oximetry 98 98 Oxygen Delivery Method Room Air Room Air Sepsis Recent Fever Within 48 Hours No Sepsis New/Unexplained Change in Mental Status No Sepsis Action Taken by Nursing No Action Required 02/10/22 19:24 02/10/22 19:25 02/10/22 19:26 Temperature Temperature Source Pulse Rate 147 H 146 H 147 H Pulse Rate [Apical] Pulse Rate from SpO2 Sensor 147 H 147 H 146 H Pulse Rhythm [Apical] Pulse Strength [Apical] Respiratory Rate 19 21 18 Respiratory Effort / Characteristics Respiratory Depth Respiratory Pattern Blood Pressure Blood Pressure [Right Arm] Blood Pressure Mean Blood Pressure Mean [Right Arm] Blood Pressure Position [Right Arm] Pulse Oximetry 99 98 98 Oxygen Delivery Method Sepsis Recent Fever Within 48 Hours Sepsis New/Unexplained Change in Mental Status Sepsis Action Taken by Nursing 02/10/22 19:27 02/10/22 19:28 02/10/22 19:29 Temperature Temperature Source Pulse Rate 147 H 146 H 145 H Pulse Rate [Apical] Pulse Rate from SpO2 Sensor 146 H 145 H 148 H Pulse Rhythm [Apical] Pulse Strength [Apical] Respiratory Rate 21 36 H 28 H Respiratory Effort / Characteristics Respiratory Depth Respiratory Pattern Blood Pressure Blood Pressure [Right Arm] Blood Pressure Mean Blood Pressure Mean [Right Arm] Blood Pressure Position [Right Arm] Pulse Oximetry 96 99 99 Oxygen Delivery Method Sepsis Recent Fever Within 48 Hours Sepsis New/Unexplained Change in Mental Status Sepsis Action Taken by Nursing 02/10/22 19:30 02/10/22 19:32 02/10/22 19:33 Temperature Temperature Source Pulse Rate 145 H 144 H 144 H Pulse Rate [Apical] Pulse Rate from SpO2 Sensor 148 H 145 H 144 H Pulse Rhythm [Apical] Pulse Strength [Apical] Respiratory Rate 19 19 26 H Respiratory Effort / Characteristics Respiratory Depth Respiratory Pattern Blood Pressure 163/114 H Blood Pressure [Right Arm] Blood Pressure Mean 130 Blood Pressure Mean [Right Arm] Blood Pressure Position [Right Arm] Pulse Oximetry 99 97 97 Oxygen Delivery Method Sepsis Recent Fever Within 48 Hours Sepsis New/Unexplained Change in Mental Status Sepsis Action Taken by Nursing 02/10/22 19:34 02/10/22 19:35 02/10/22 19:36 Temperature Temperature Source Pulse Rate 145 H 144 H 144 H Pulse Rate [Apical] Pulse Rate from SpO2 Sensor 145 H 143 H 144 H Pulse Rhythm [Apical] Pulse Strength [Apical] Respiratory Rate 22 19 14 Respiratory Effort / Characteristics Respiratory Depth Respiratory Pattern Blood Pressure Blood Pressure [Right Arm] Blood Pressure Mean Blood Pressure Mean [Right Arm] Blood Pressure Position [Right Arm] Pulse Oximetry 96 100 98 Oxygen Delivery Method Sepsis Recent Fever Within 48 Hours Sepsis New/Unexplained Change in Mental Status Sepsis Action Taken by Nursing 02/10/22 19:37 02/10/22 19:38 02/10/22 19:39 Temperature Temperature Source Pulse Rate 142 H 143 H 142 H Pulse Rate [Apical] Pulse Rate from SpO2 Sensor 143 H 143 H 141 H Pulse Rhythm [Apical] Pulse Strength [Apical] Respiratory Rate 18 26 H 13 Respiratory Effort / Characteristics Respiratory Depth Respiratory Pattern Blood Pressure Blood Pressure [Right Arm] Blood Pressure Mean Blood Pressure Mean [Right Arm] Blood Pressure Position [Right Arm] Pulse Oximetry 97 98 97 Oxygen Delivery Method Sepsis Recent Fever Within 48 Hours Sepsis New/Unexplained Change in Mental Status Sepsis Action Taken by Nursing 02/10/22 19:40 02/10/22 19:53 02/10/22 19:55 Temperature Temperature Source Pulse Rate 144 H 154 H 149 H Pulse Rate [Apical] Pulse Rate from SpO2 Sensor 144 H Pulse Rhythm [Apical] Pulse Strength [Apical] Respiratory Rate 17 21 25 H Respiratory Effort / Characteristics Respiratory Depth Respiratory Pattern Blood Pressure Blood Pressure [Right Arm] Blood Pressure Mean Blood Pressure Mean [Right Arm] Blood Pressure Position [Right Arm] Pulse Oximetry 99 Oxygen Delivery Method Sepsis Recent Fever Within 48 Hours Sepsis New/Unexplained Change in Mental Status Sepsis Action Taken by Nursing 02/10/22 19:56 02/10/22 19:57 02/10/22 19:58 Temperature Temperature Source Pulse Rate 150 H 148 H 148 H Pulse Rate [Apical] Pulse Rate from SpO2 Sensor 150 H 149 H 149 H Pulse Rhythm [Apical] Pulse Strength [Apical] Respiratory Rate 23 22 27 H Respiratory Effort / Characteristics Respiratory Depth Respiratory Pattern Blood Pressure Blood Pressure [Right Arm] Blood Pressure Mean Blood Pressure Mean [Right Arm] Blood Pressure Position [Right Arm] Pulse Oximetry 98 98 96 Oxygen Delivery Method Sepsis Recent Fever Within 48 Hours Sepsis New/Unexplained Change in Mental Status Sepsis Action Taken by Nursing 02/10/22 19:59 02/10/22 20:00 02/10/22 20:01 Temperature Temperature Source Pulse Rate 150 H 147 H 148 H Pulse Rate [Apical] Pulse Rate from SpO2 Sensor 150 H 147 H 148 H Pulse Rhythm [Apical] Pulse Strength [Apical] Respiratory Rate 18 14 17 Respiratory Effort / Characteristics Respiratory Depth Respiratory Pattern Blood Pressure Blood Pressure [Right Arm] Blood Pressure Mean Blood Pressure Mean [Right Arm] Blood Pressure Position [Right Arm] Pulse Oximetry 97 95 99 Oxygen Delivery Method Sepsis Recent Fever Within 48 Hours Sepsis New/Unexplained Change in Mental Status Sepsis Action Taken by Nursing 02/10/22 20:03 02/10/22 20:05 02/10/22 20:06 Temperature Temperature Source Pulse Rate 58 L 76 64 Pulse Rate [Apical] Pulse Rate from SpO2 Sensor 131 H 48 L 43 L Pulse Rhythm [Apical] Pulse Strength [Apical] Respiratory Rate 17 20 17 Respiratory Effort / Characteristics Respiratory Depth Respiratory Pattern Blood Pressure 150/74 H Blood Pressure [Right Arm] Blood Pressure Mean 99 Blood Pressure Mean [Right Arm] Blood Pressure Position [Right Arm] Pulse Oximetry 99 99 98 Oxygen Delivery Method Sepsis Recent Fever Within 48 Hours Sepsis New/Unexplained Change in Mental Status Sepsis Action Taken by Nursing 02/10/22 20:07 02/10/22 20:08 02/10/22 20:09 Temperature Temperature Source Pulse Rate 53 L 54 L 61 Pulse Rate [Apical] Pulse Rate from SpO2 Sensor 43 L 52 L 54 L Pulse Rhythm [Apical] Pulse Strength [Apical] Respiratory Rate 20 17 13 Respiratory Effort / Characteristics Respiratory Depth Respiratory Pattern Blood Pressure Blood Pressure [Right Arm] Blood Pressure Mean Blood Pressure Mean [Right Arm] Blood Pressure Position [Right Arm] Pulse Oximetry 97 96 97 Oxygen Delivery Method Sepsis Recent Fever Within 48 Hours Sepsis New/Unexplained Change in Mental Status Sepsis Action Taken by Nursing 02/10/22 20:10 02/10/22 20:11 02/10/22 20:12 Temperature Temperature Source Pulse Rate 53 L 82 56 L Pulse Rate [Apical] Pulse Rate from SpO2 Sensor 47 L 48 L 49 L Pulse Rhythm [Apical] Pulse Strength [Apical] Respiratory Rate 19 20 16 Respiratory Effort / Characteristics Respiratory Depth Respiratory Pattern Blood Pressure Blood Pressure [Right Arm] Blood Pressure Mean Blood Pressure Mean [Right Arm] Blood Pressure Position [Right Arm] Pulse Oximetry 98 99 98 Oxygen Delivery Method Sepsis Recent Fever Within 48 Hours Sepsis New/Unexplained Change in Mental Status Sepsis Action Taken by Nursing 02/10/22 20:13 02/10/22 20:14 02/10/22 20:15 Temperature Temperature Source Pulse Rate 62 50 L 78 Pulse Rate [Apical] Pulse Rate from SpO2 Sensor 47 L 44 L 52 L Pulse Rhythm [Apical] Pulse Strength [Apical] Respiratory Rate 18 17 22 Respiratory Effort / Characteristics Respiratory Depth Respiratory Pattern Blood Pressure Blood Pressure [Right Arm] Blood Pressure Mean Blood Pressure Mean [Right Arm] Blood Pressure Position [Right Arm] Pulse Oximetry 98 98 98 Oxygen Delivery Method Sepsis Recent Fever Within 48 Hours Sepsis New/Unexplained Change in Mental Status Sepsis Action Taken by Nursing 02/10/22 20:16 02/10/22 20:17 02/10/22 20:18 Temperature Temperature Source Pulse Rate 41 L 45 L 62 Pulse Rate [Apical] Pulse Rate from SpO2 Sensor 41 L 48 L 47 L Pulse Rhythm [Apical] Pulse Strength [Apical] Respiratory Rate 20 17 19 Respiratory Effort / Characteristics Respiratory Depth Respiratory Pattern Blood Pressure Blood Pressure [Right Arm] Blood Pressure Mean Blood Pressure Mean [Right Arm] Blood Pressure Position [Right Arm] Pulse Oximetry 98 98 98 Oxygen Delivery Method Sepsis Recent Fever Within 48 Hours Sepsis New/Unexplained Change in Mental Status Sepsis Action Taken by Nursing 02/10/22 20:19 02/10/22 20:20 02/10/22 20:21 Temperature Temperature Source Pulse Rate 51 L 37 L 59 L Pulse Rate [Apical] Pulse Rate from SpO2 Sensor 49 L 39 L 48 L Pulse Rhythm [Apical] Pulse Strength [Apical] Respiratory Rate 13 19 16 Respiratory Effort / Characteristics Respiratory Depth Respiratory Pattern Blood Pressure Blood Pressure [Right Arm] Blood Pressure Mean Blood Pressure Mean [Right Arm] Blood Pressure Position [Right Arm] Pulse Oximetry 98 98 98 Oxygen Delivery Method Sepsis Recent Fever Within 48 Hours Sepsis New/Unexplained Change in Mental Status Sepsis Action Taken by Nursing 02/10/22 20:22 02/10/22 20:23 02/10/22 20:24 Temperature Temperature Source Pulse Rate 45 L 41 L 41 L Pulse Rate [Apical] Pulse Rate from SpO2 Sensor 44 L 39 L 39 L Pulse Rhythm [Apical] Pulse Strength [Apical] Respiratory Rate 18 13 18 Respiratory Effort / Characteristics Respiratory Depth Respiratory Pattern Blood Pressure Blood Pressure [Right Arm] Blood Pressure Mean Blood Pressure Mean [Right Arm] Blood Pressure Position [Right Arm] Pulse Oximetry 98 98 98 Oxygen Delivery Method Sepsis Recent Fever Within 48 Hours Sepsis New/Unexplained Change in Mental Status Sepsis Action Taken by Nursing 02/10/22 20:25 02/10/22 20:26 02/10/22 20:27 Temperature Temperature Source Pulse Rate 39 L 46 L 60 Pulse Rate [Apical] Pulse Rate from SpO2 Sensor 39 L 41 L 59 L Pulse Rhythm [Apical] Pulse Strength [Apical] Respiratory Rate 12 18 12 Respiratory Effort / Characteristics Respiratory Depth Respiratory Pattern Blood Pressure Blood Pressure [Right Arm] Blood Pressure Mean Blood Pressure Mean [Right Arm] Blood Pressure Position [Right Arm] Pulse Oximetry 98 99 99 Oxygen Delivery Method Sepsis Recent Fever Within 48 Hours Sepsis New/Unexplained Change in Mental Status Sepsis Action Taken by Nursing 02/10/22 20:28 02/10/22 20:29 02/10/22 20:30 Temperature Temperature Source Pulse Rate 115 H 72 81 Pulse Rate [Apical] Pulse Rate from SpO2 Sensor Pulse Rhythm [Apical] Pulse Strength [Apical] Respiratory Rate 24 22 24 Respiratory Effort / Characteristics Respiratory Depth Respiratory Pattern Blood Pressure Blood Pressure [Right Arm] Blood Pressure Mean Blood Pressure Mean [Right Arm] Blood Pressure Position [Right Arm] Pulse Oximetry Oxygen Delivery Method Sepsis Recent Fever Within 48 Hours Sepsis New/Unexplained Change in Mental Status Sepsis Action Taken by Nursing 02/10/22 20:31 02/10/22 20:32 02/10/22 20:33 Temperature Temperature Source Pulse Rate 75 71 73 Pulse Rate [Apical] Pulse Rate from SpO2 Sensor 71 67 68 Pulse Rhythm [Apical] Pulse Strength [Apical] Respiratory Rate 24 18 17 Respiratory Effort / Characteristics Respiratory Depth Respiratory Pattern Blood Pressure Blood Pressure [Right Arm] Blood Pressure Mean Blood Pressure Mean [Right Arm] Blood Pressure Position [Right Arm] Pulse Oximetry 92 98 97 Oxygen Delivery Method Sepsis Recent Fever Within 48 Hours Sepsis New/Unexplained Change in Mental Status Sepsis Action Taken by Nursing 02/10/22 20:34 02/10/22 20:35 02/10/22 20:36 Temperature Temperature Source Pulse Rate 65 Pulse Rate [Apical] Pulse Rate from SpO2 Sensor 67 62 65 Pulse Rhythm [Apical] Pulse Strength [Apical] Respiratory Rate 22 19 22 Respiratory Effort / Characteristics Respiratory Depth Respiratory Pattern Blood Pressure Blood Pressure [Right Arm] Blood Pressure Mean Blood Pressure Mean [Right Arm] Blood Pressure Position [Right Arm] Pulse Oximetry 97 96 95 Oxygen Delivery Method Sepsis Recent Fever Within 48 Hours Sepsis New/Unexplained Change in Mental Status Sepsis Action Taken by Nursing 02/10/22 20:37 02/10/22 20:38 02/10/22 20:39 Temperature Temperature Source Pulse Rate 83 86 65 Pulse Rate [Apical] Pulse Rate from SpO2 Sensor 62 71 68 Pulse Rhythm [Apical] Pulse Strength [Apical] Respiratory Rate 27 H 17 16 Respiratory Effort / Characteristics Respiratory Depth Respiratory Pattern Blood Pressure Blood Pressure [Right Arm] Blood Pressure Mean Blood Pressure Mean [Right Arm] Blood Pressure Position [Right Arm] Pulse Oximetry 96 95 87 L Oxygen Delivery Method Sepsis Recent Fever Within 48 Hours Sepsis New/Unexplained Change in Mental Status Sepsis Action Taken by Nursing 02/10/22 20:40 02/10/22 20:41 02/10/22 20:42 Temperature Temperature Source Pulse Rate 92 H 80 Pulse Rate [Apical] Pulse Rate from SpO2 Sensor 73 70 64 Pulse Rhythm [Apical] Pulse Strength [Apical] Respiratory Rate 23 17 21 Respiratory Effort / Characteristics Respiratory Depth Respiratory Pattern Blood Pressure Blood Pressure [Right Arm] Blood Pressure Mean Blood Pressure Mean [Right Arm] Blood Pressure Position [Right Arm] Pulse Oximetry 81 L 91 97 Oxygen Delivery Method Sepsis Recent Fever Within 48 Hours Sepsis New/Unexplained Change in Mental Status Sepsis Action Taken by Nursing 02/10/22 20:43 02/10/22 20:44 02/10/22 20:45 Temperature Temperature Source Pulse Rate 97 H 87 70 Pulse Rate [Apical] Pulse Rate from SpO2 Sensor 65 68 68 Pulse Rhythm [Apical] Pulse Strength [Apical] Respiratory Rate 22 14 18 Respiratory Effort / Characteristics Respiratory Depth Respiratory Pattern Blood Pressure Blood Pressure [Right Arm] Blood Pressure Mean Blood Pressure Mean [Right Arm] Blood Pressure Position [Right Arm] Pulse Oximetry 88 L 83 L 81 L Oxygen Delivery Method Sepsis Recent Fever Within 48 Hours Sepsis New/Unexplained Change in Mental Status Sepsis Action Taken by Nursing 02/10/22 20:46 02/10/22 20:47 02/10/22 20:48 Temperature Temperature Source Pulse Rate 66 62 61 Pulse Rate [Apical] Pulse Rate from SpO2 Sensor 74 76 68 Pulse Rhythm [Apical] Pulse Strength [Apical] Respiratory Rate 19 16 27 H Respiratory Effort / Characteristics Respiratory Depth Respiratory Pattern Blood Pressure Blood Pressure [Right Arm] Blood Pressure Mean Blood Pressure Mean [Right Arm] Blood Pressure Position [Right Arm] Pulse Oximetry 82 L 78 L 96 Oxygen Delivery Method Sepsis Recent Fever Within 48 Hours Sepsis New/Unexplained Change in Mental Status Sepsis Action Taken by Nursing 02/10/22 20:49 02/10/22 20:50 02/10/22 20:52 Temperature Temperature Source Pulse Rate 105 H 57 L Pulse Rate [Apical] Pulse Rate from SpO2 Sensor 67 62 52 L Pulse Rhythm [Apical] Pulse Strength [Apical] Respiratory Rate 24 31 H 18 Respiratory Effort / Characteristics Respiratory Depth Respiratory Pattern Blood Pressure Blood Pressure [Right Arm] Blood Pressure Mean Blood Pressure Mean [Right Arm] Blood Pressure Position [Right Arm] Pulse Oximetry 94 97 97 Oxygen Delivery Method Sepsis Recent Fever Within 48 Hours Sepsis New/Unexplained Change in Mental Status Sepsis Action Taken by Nursing 02/10/22 20:53 02/10/22 20:54 02/10/22 20:55 Temperature Temperature Source Pulse Rate 72 56 L 61 Pulse Rate [Apical] Pulse Rate from SpO2 Sensor 53 L 50 L 45 L Pulse Rhythm [Apical] Pulse Strength [Apical] Respiratory Rate 23 14 23 Respiratory Effort / Characteristics Respiratory Depth Respiratory Pattern Blood Pressure Blood Pressure [Right Arm] Blood Pressure Mean Blood Pressure Mean [Right Arm] Blood Pressure Position [Right Arm] Pulse Oximetry 96 95 95 Oxygen Delivery Method Sepsis Recent Fever Within 48 Hours Sepsis New/Unexplained Change in Mental Status Sepsis Action Taken by Nursing 02/10/22 20:56 02/10/22 20:57 02/10/22 20:58 Temperature Temperature Source Pulse Rate 60 53 L 54 L Pulse Rate [Apical] Pulse Rate from SpO2 Sensor 46 L 57 L 45 L Pulse Rhythm [Apical] Pulse Strength [Apical] Respiratory Rate 17 14 22 Respiratory Effort / Characteristics Respiratory Depth Respiratory Pattern Blood Pressure Blood Pressure [Right Arm] Blood Pressure Mean Blood Pressure Mean [Right Arm] Blood Pressure Position [Right Arm] Pulse Oximetry 96 96 97 Oxygen Delivery Method Sepsis Recent Fever Within 48 Hours Sepsis New/Unexplained Change in Mental Status Sepsis Action Taken by Nursing 02/10/22 20:59 02/10/22 21:00 02/10/22 21:02 Temperature Temperature Source Pulse Rate 51 L 61 47 L Pulse Rate [Apical] Pulse Rate from SpO2 Sensor 45 L 45 L 44 L Pulse Rhythm [Apical] Pulse Strength [Apical] Respiratory Rate 20 17 20 Respiratory Effort / Characteristics Respiratory Depth Respiratory Pattern Blood Pressure Blood Pressure [Right Arm] Blood Pressure Mean Blood Pressure Mean [Right Arm] Blood Pressure Position [Right Arm] Pulse Oximetry 96 96 98 Oxygen Delivery Method Sepsis Recent Fever Within 48 Hours Sepsis New/Unexplained Change in Mental Status Sepsis Action Taken by Nursing 02/10/22 21:03 02/10/22 21:04 02/10/22 21:05 Temperature Temperature Source Pulse Rate 85 Pulse Rate [Apical] Pulse Rate from SpO2 Sensor 45 L 43 L 44 L Pulse Rhythm [Apical] Pulse Strength [Apical] Respiratory Rate 14 15 24 Respiratory Effort / Characteristics Respiratory Depth Respiratory Pattern Blood Pressure Blood Pressure [Right Arm] Blood Pressure Mean Blood Pressure Mean [Right Arm] Blood Pressure Position [Right Arm] Pulse Oximetry 99 97 99 Oxygen Delivery Method Sepsis Recent Fever Within 48 Hours Sepsis New/Unexplained Change in Mental Status Sepsis Action Taken by Nursing 02/10/22 21:06 02/10/22 21:07 02/10/22 21:08 Temperature Temperature Source Pulse Rate 52 L 61 43 L Pulse Rate [Apical] Pulse Rate from SpO2 Sensor 43 L 42 L 43 L Pulse Rhythm [Apical] Pulse Strength [Apical] Respiratory Rate 23 24 19 Respiratory Effort / Characteristics Respiratory Depth Respiratory Pattern Blood Pressure Blood Pressure [Right Arm] Blood Pressure Mean Blood Pressure Mean [Right Arm] Blood Pressure Position [Right Arm] Pulse Oximetry 98 98 99 Oxygen Delivery Method Sepsis Recent Fever Within 48 Hours Sepsis New/Unexplained Change in Mental Status Sepsis Action Taken by Nursing 02/10/22 21:09 02/10/22 21:10 02/10/22 21:11 Temperature Temperature Source Pulse Rate 46 L Pulse Rate [Apical] Pulse Rate from SpO2 Sensor 42 L 47 L 40 L Pulse Rhythm [Apical] Pulse Strength [Apical] Respiratory Rate 19 20 18 Respiratory Effort / Characteristics Respiratory Depth Respiratory Pattern Blood Pressure Blood Pressure [Right Arm] Blood Pressure Mean Blood Pressure Mean [Right Arm] Blood Pressure Position [Right Arm] Pulse Oximetry 99 98 97 Oxygen Delivery Method Sepsis Recent Fever Within 48 Hours Sepsis New/Unexplained Change in Mental Status Sepsis Action Taken by Nursing 02/10/22 21:12 02/10/22 21:13 02/10/22 21:14 Temperature Temperature Source Pulse Rate 44 L 42 L Pulse Rate [Apical] Pulse Rate from SpO2 Sensor 45 L 42 L 42 L Pulse Rhythm [Apical] Pulse Strength [Apical] Respiratory Rate 27 H 20 21 Respiratory Effort / Characteristics Respiratory Depth Respiratory Pattern Blood Pressure Blood Pressure [Right Arm] Blood Pressure Mean Blood Pressure Mean [Right Arm] Blood Pressure Position [Right Arm] Pulse Oximetry 98 97 98 Oxygen Delivery Method Sepsis Recent Fever Within 48 Hours Sepsis New/Unexplained Change in Mental Status Sepsis Action Taken by Nursing 02/10/22 21:21 02/10/22 21:22 02/10/22 21:23 Temperature Temperature Source Pulse Rate 49 L 44 L 44 L Pulse Rate [Apical] Pulse Rate from SpO2 Sensor 44 L 43 L 44 L Pulse Rhythm [Apical] Pulse Strength [Apical] Respiratory Rate 19 18 22 Respiratory Effort / Characteristics Respiratory Depth Respiratory Pattern Blood Pressure Blood Pressure [Right Arm] Blood Pressure Mean Blood Pressure Mean [Right Arm] Blood Pressure Position [Right Arm] Pulse Oximetry 98 98 98 Oxygen Delivery Method Sepsis Recent Fever Within 48 Hours Sepsis New/Unexplained Change in Mental Status Sepsis Action Taken by Nursing 02/10/22 21:24 02/10/22 21:25 02/10/22 21:26 Temperature Temperature Source Pulse Rate 44 L 47 L 41 L Pulse Rate [Apical] Pulse Rate from SpO2 Sensor 44 L 43 L 42 L Pulse Rhythm [Apical] Pulse Strength [Apical] Respiratory Rate 18 13 12 Respiratory Effort / Characteristics Respiratory Depth Respiratory Pattern Blood Pressure Blood Pressure [Right Arm] Blood Pressure Mean Blood Pressure Mean [Right Arm] Blood Pressure Position [Right Arm] Pulse Oximetry 98 98 98 Oxygen Delivery Method Sepsis Recent Fever Within 48 Hours Sepsis New/Unexplained Change in Mental Status Sepsis Action Taken by Nursing 02/10/22 21:27 02/10/22 21:28 02/10/22 21:29 Temperature Temperature Source Pulse Rate 42 L 40 L 49 L Pulse Rate [Apical] Pulse Rate from SpO2 Sensor 40 L 40 L 43 L Pulse Rhythm [Apical] Pulse Strength [Apical] Respiratory Rate 17 14 13 Respiratory Effort / Characteristics Respiratory Depth Respiratory Pattern Blood Pressure Blood Pressure [Right Arm] Blood Pressure Mean Blood Pressure Mean [Right Arm] Blood Pressure Position [Right Arm] Pulse Oximetry 98 98 98 Oxygen Delivery Method Sepsis Recent Fever Within 48 Hours Sepsis New/Unexplained Change in Mental Status Sepsis Action Taken by Nursing 02/10/22 21:30 02/10/22 21:32 02/10/22 21:33 Temperature Temperature Source Pulse Rate 43 L 41 L 43 L Pulse Rate [Apical] Pulse Rate from SpO2 Sensor 42 L 41 L 43 L Pulse Rhythm [Apical] Pulse Strength [Apical] Respiratory Rate 19 18 20 Respiratory Effort / Characteristics Respiratory Depth Respiratory Pattern Blood Pressure Blood Pressure [Right Arm] Blood Pressure Mean Blood Pressure Mean [Right Arm] Blood Pressure Position [Right Arm] Pulse Oximetry 98 98 97 Oxygen Delivery Method Sepsis Recent Fever Within 48 Hours Sepsis New/Unexplained Change in Mental Status Sepsis Action Taken by Nursing 02/10/22 21:34 02/10/22 21:35 02/10/22 21:36 Temperature Temperature Source Pulse Rate 95 H 138 H 137 H Pulse Rate [Apical] Pulse Rate from SpO2 Sensor 89 138 H 137 H Pulse Rhythm [Apical] Pulse Strength [Apical] Respiratory Rate 18 18 17 Respiratory Effort / Characteristics Respiratory Depth Respiratory Pattern Blood Pressure Blood Pressure [Right Arm] Blood Pressure Mean Blood Pressure Mean [Right Arm] Blood Pressure Position [Right Arm] Pulse Oximetry 97 96 95 Oxygen Delivery Method Sepsis Recent Fever Within 48 Hours Sepsis New/Unexplained Change in Mental Status Sepsis Action Taken by Nursing 02/10/22 21:37 02/10/22 21:38 02/10/22 21:40 Temperature Temperature Source Pulse Rate 136 H 136 H 137 H Pulse Rate [Apical] Pulse Rate from SpO2 Sensor 137 H 136 H 136 H Pulse Rhythm [Apical] Pulse Strength [Apical] Respiratory Rate 22 18 20 Respiratory Effort / Characteristics Respiratory Depth Respiratory Pattern Blood Pressure Blood Pressure [Right Arm] Blood Pressure Mean Blood Pressure Mean [Right Arm] Blood Pressure Position [Right Arm] Pulse Oximetry 96 97 96 Oxygen Delivery Method Sepsis Recent Fever Within 48 Hours Sepsis New/Unexplained Change in Mental Status Sepsis Action Taken by Nursing 02/10/22 21:41 02/10/22 21:42 02/10/22 21:43 Temperature Temperature Source Pulse Rate 138 H 136 H 137 H Pulse Rate [Apical] Pulse Rate from SpO2 Sensor 138 H 137 H 137 H Pulse Rhythm [Apical] Pulse Strength [Apical] Respiratory Rate 20 26 H 16 Respiratory Effort / Characteristics Respiratory Depth Respiratory Pattern Blood Pressure Blood Pressure [Right Arm] Blood Pressure Mean Blood Pressure Mean [Right Arm] Blood Pressure Position [Right Arm] Pulse Oximetry 96 97 97 Oxygen Delivery Method Sepsis Recent Fever Within 48 Hours Sepsis New/Unexplained Change in Mental Status Sepsis Action Taken by Nursing 02/10/22 21:44 02/10/22 21:45 02/10/22 21:46 Temperature Temperature Source Pulse Rate 137 H 136 H 137 H Pulse Rate [Apical] Pulse Rate from SpO2 Sensor 137 H 136 H 136 H Pulse Rhythm [Apical] Pulse Strength [Apical] Respiratory Rate 19 24 31 H Respiratory Effort / Characteristics Respiratory Depth Respiratory Pattern Blood Pressure Blood Pressure [Right Arm] Blood Pressure Mean Blood Pressure Mean [Right Arm] Blood Pressure Position [Right Arm] Pulse Oximetry 97 97 98 Oxygen Delivery Method Sepsis Recent Fever Within 48 Hours Sepsis New/Unexplained Change in Mental Status Sepsis Action Taken by Nursing 02/10/22 21:47 02/10/22 21:48 02/10/22 21:49 Temperature Temperature Source Pulse Rate 136 H 136 H 136 H Pulse Rate [Apical] Pulse Rate from SpO2 Sensor 136 H 136 H 137 H Pulse Rhythm [Apical] Pulse Strength [Apical] Respiratory Rate 23 23 22 Respiratory Effort / Characteristics Respiratory Depth Respiratory Pattern Blood Pressure Blood Pressure [Right Arm] Blood Pressure Mean Blood Pressure Mean [Right Arm] Blood Pressure Position [Right Arm] Pulse Oximetry 97 97 97 Oxygen Delivery Method Sepsis Recent Fever Within 48 Hours Sepsis New/Unexplained Change in Mental Status Sepsis Action Taken by Nursing 02/10/22 21:50 02/10/22 21:51 02/10/22 21:52 Temperature Temperature Source Pulse Rate 135 H 135 H 55 L Pulse Rate [Apical] Pulse Rate from SpO2 Sensor 135 H 135 H 40 L Pulse Rhythm [Apical] Pulse Strength [Apical] Respiratory Rate 21 24 20 Respiratory Effort / Characteristics Respiratory Depth Respiratory Pattern Blood Pressure Blood Pressure [Right Arm] Blood Pressure Mean Blood Pressure Mean [Right Arm] Blood Pressure Position [Right Arm] Pulse Oximetry 98 98 97 Oxygen Delivery Method Sepsis Recent Fever Within 48 Hours Sepsis New/Unexplained Change in Mental Status Sepsis Action Taken by Nursing 02/10/22 21:53 02/10/22 21:54 02/10/22 21:55 Temperature Temperature Source Pulse Rate 77 78 63 Pulse Rate [Apical] Pulse Rate from SpO2 Sensor 41 L 53 L 51 L Pulse Rhythm [Apical] Pulse Strength [Apical] Respiratory Rate 18 16 Respiratory Effort / Characteristics Respiratory Depth Respiratory Pattern Blood Pressure Blood Pressure [Right Arm] Blood Pressure Mean Blood Pressure Mean [Right Arm] Blood Pressure Position [Right Arm] Pulse Oximetry 98 97 95 Oxygen Delivery Method Sepsis Recent Fever Within 48 Hours Sepsis New/Unexplained Change in Mental Status Sepsis Action Taken by Nursing 02/10/22 21:56 02/10/22 21:57 02/10/22 21:58 Temperature Temperature Source Pulse Rate 61 48 L 49 L Pulse Rate [Apical] Pulse Rate from SpO2 Sensor 50 L 49 L 38 L Pulse Rhythm [Apical] Pulse Strength [Apical] Respiratory Rate 11 L 13 21 Respiratory Effort / Characteristics Respiratory Depth Respiratory Pattern Blood Pressure Blood Pressure [Right Arm] Blood Pressure Mean Blood Pressure Mean [Right Arm] Blood Pressure Position [Right Arm] Pulse Oximetry 94 96 97 Oxygen Delivery Method Sepsis Recent Fever Within 48 Hours Sepsis New/Unexplained Change in Mental Status Sepsis Action Taken by Nursing 02/10/22 21:59 02/10/22 22:00 02/10/22 22:01 Temperature Temperature Source Pulse Rate 50 L 55 L Pulse Rate [Apical] Pulse Rate from SpO2 Sensor 42 L 44 L 44 L Pulse Rhythm [Apical] Pulse Strength [Apical] Respiratory Rate 17 22 Respiratory Effort / Characteristics Respiratory Depth Respiratory Pattern Blood Pressure Blood Pressure [Right Arm] Blood Pressure Mean Blood Pressure Mean [Right Arm] Blood Pressure Position [Right Arm] Pulse Oximetry 94 95 92 Oxygen Delivery Method Sepsis Recent Fever Within 48 Hours Sepsis New/Unexplained Change in Mental Status Sepsis Action Taken by Nursing 02/10/22 22:03 02/10/22 22:04 02/10/22 22:05 Temperature Temperature Source Pulse Rate 48 L 53 L 44 L Pulse Rate [Apical] Pulse Rate from SpO2 Sensor 50 L 47 L 41 L Pulse Rhythm [Apical] Pulse Strength [Apical] Respiratory Rate 17 17 21 Respiratory Effort / Characteristics Respiratory Depth Respiratory Pattern Blood Pressure Blood Pressure [Right Arm] Blood Pressure Mean Blood Pressure Mean [Right Arm] Blood Pressure Position [Right Arm] Pulse Oximetry 96 96 97 Oxygen Delivery Method Sepsis Recent Fever Within 48 Hours Sepsis New/Unexplained Change in Mental Status Sepsis Action Taken by Nursing 02/10/22 22:06 02/10/22 22:07 02/10/22 22:08 Temperature Temperature Source Pulse Rate 46 L 54 L 52 L Pulse Rate [Apical] Pulse Rate from SpO2 Sensor 44 L 44 L 44 L Pulse Rhythm [Apical] Pulse Strength [Apical] Respiratory Rate 16 15 23 Respiratory Effort / Characteristics Respiratory Depth Respiratory Pattern Blood Pressure Blood Pressure [Right Arm] Blood Pressure Mean Blood Pressure Mean [Right Arm] Blood Pressure Position [Right Arm] Pulse Oximetry 97 95 96 Oxygen Delivery Method Sepsis Recent Fever Within 48 Hours Sepsis New/Unexplained Change in Mental Status Sepsis Action Taken by Nursing 02/10/22 22:09 02/10/22 22:10 02/10/22 22:11 Temperature Temperature Source Pulse Rate 35 L 46 L 53 L Pulse Rate [Apical] Pulse Rate from SpO2 Sensor 37 L 44 L 47 L Pulse Rhythm [Apical] Pulse Strength [Apical] Respiratory Rate 20 23 23 Respiratory Effort / Characteristics Respiratory Depth Respiratory Pattern Blood Pressure Blood Pressure [Right Arm] Blood Pressure Mean Blood Pressure Mean [Right Arm] Blood Pressure Position [Right Arm] Pulse Oximetry 95 97 97 Oxygen Delivery Method Sepsis Recent Fever Within 48 Hours Sepsis New/Unexplained Change in Mental Status Sepsis Action Taken by Nursing 02/10/22 22:12 02/10/22 22:13 02/10/22 22:14 Temperature Temperature Source Pulse Rate 50 L 51 L 42 L Pulse Rate [Apical] Pulse Rate from SpO2 Sensor 47 L 42 L 42 L Pulse Rhythm [Apical] Pulse Strength [Apical] Respiratory Rate 17 24 16 Respiratory Effort / Characteristics Respiratory Depth Respiratory Pattern Blood Pressure Blood Pressure [Right Arm] Blood Pressure Mean Blood Pressure Mean [Right Arm] Blood Pressure Position [Right Arm] Pulse Oximetry 97 96 96 Oxygen Delivery Method Sepsis Recent Fever Within 48 Hours Sepsis New/Unexplained Change in Mental Status Sepsis Action Taken by Nursing 02/10/22 22:15 02/10/22 22:16 02/10/22 22:17 Temperature Temperature Source Pulse Rate 41 L 42 L 38 L Pulse Rate [Apical] Pulse Rate from SpO2 Sensor 43 L 42 L 39 L Pulse Rhythm [Apical] Pulse Strength [Apical] Respiratory Rate 13 16 13 Respiratory Effort / Characteristics Respiratory Depth Respiratory Pattern Blood Pressure Blood Pressure [Right Arm] Blood Pressure Mean Blood Pressure Mean [Right Arm] Blood Pressure Position [Right Arm] Pulse Oximetry 97 97 96 Oxygen Delivery Method Sepsis Recent Fever Within 48 Hours Sepsis New/Unexplained Change in Mental Status Sepsis Action Taken by Nursing 02/10/22 22:18 02/10/22 22:19 02/10/22 22:20 Temperature Temperature Source Pulse Rate 42 L 40 L 40 L Pulse Rate [Apical] Pulse Rate from SpO2 Sensor 44 L 41 L 41 L Pulse Rhythm [Apical] Pulse Strength [Apical] Respiratory Rate 15 14 16 Respiratory Effort / Characteristics Respiratory Depth Respiratory Pattern Blood Pressure Blood Pressure [Right Arm] Blood Pressure Mean Blood Pressure Mean [Right Arm] Blood Pressure Position [Right Arm] Pulse Oximetry 97 97 97 Oxygen Delivery Method Sepsis Recent Fever Within 48 Hours Sepsis New/Unexplained Change in Mental Status Sepsis Action Taken by Nursing 02/10/22 22:21 02/10/22 22:22 02/10/22 22:23 Temperature Temperature Source Pulse Rate 41 L 47 L 48 L Pulse Rate [Apical] Pulse Rate from SpO2 Sensor 41 L 44 L 40 L Pulse Rhythm [Apical] Pulse Strength [Apical] Respiratory Rate 17 14 23 Respiratory Effort / Characteristics Respiratory Depth Respiratory Pattern Blood Pressure Blood Pressure [Right Arm] Blood Pressure Mean Blood Pressure Mean [Right Arm] Blood Pressure Position [Right Arm] Pulse Oximetry 98 97 97 Oxygen Delivery Method Sepsis Recent Fever Within 48 Hours Sepsis New/Unexplained Change in Mental Status Sepsis Action Taken by Nursing 02/10/22 22:24 02/10/22 22:37 02/10/22 22:38 Temperature Temperature Source Pulse Rate 46 L 42 L Pulse Rate [Apical] Pulse Rate from SpO2 Sensor 46 L 45 L 41 L Pulse Rhythm [Apical] Pulse Strength [Apical] Respiratory Rate 15 17 Respiratory Effort / Characteristics Respiratory Depth Respiratory Pattern Blood Pressure Blood Pressure [Right Arm] Blood Pressure Mean Blood Pressure Mean [Right Arm] Blood Pressure Position [Right Arm] Pulse Oximetry 93 96 90 Oxygen Delivery Method Sepsis Recent Fever Within 48 Hours Sepsis New/Unexplained Change in Mental Status Sepsis Action Taken by Nursing 02/10/22 22:40 02/10/22 22:41 02/10/22 22:42 Temperature Temperature Source Pulse Rate 42 L 42 L 40 L Pulse Rate [Apical] Pulse Rate from SpO2 Sensor 42 L 41 L 40 L Pulse Rhythm [Apical] Pulse Strength [Apical] Respiratory Rate 23 16 18 Respiratory Effort / Characteristics Respiratory Depth Respiratory Pattern Blood Pressure Blood Pressure [Right Arm] Blood Pressure Mean Blood Pressure Mean [Right Arm] Blood Pressure Position [Right Arm] Pulse Oximetry 97 96 95 Oxygen Delivery Method Sepsis Recent Fever Within 48 Hours Sepsis New/Unexplained Change in Mental Status Sepsis Action Taken by Nursing 02/10/22 22:43 02/10/22 22:44 02/10/22 22:45 Temperature Temperature Source Pulse Rate 40 L 39 L 44 L Pulse Rate [Apical] Pulse Rate from SpO2 Sensor 42 L 40 L 39 L Pulse Rhythm [Apical] Pulse Strength [Apical] Respiratory Rate 16 19 15 Respiratory Effort / Characteristics Respiratory Depth Respiratory Pattern Blood Pressure Blood Pressure [Right Arm] Blood Pressure Mean Blood Pressure Mean [Right Arm] Blood Pressure Position [Right Arm] Pulse Oximetry 96 96 96 Oxygen Delivery Method Sepsis Recent Fever Within 48 Hours Sepsis New/Unexplained Change in Mental Status Sepsis Action Taken by Nursing 02/10/22 22:46 02/10/22 22:47 02/10/22 22:48 Temperature Temperature Source Pulse Rate 36 L 39 L 39 L Pulse Rate [Apical] Pulse Rate from SpO2 Sensor 39 L 43 L 39 L Pulse Rhythm [Apical] Pulse Strength [Apical] Respiratory Rate 19 19 13 Respiratory Effort / Characteristics Respiratory Depth Respiratory Pattern Blood Pressure Blood Pressure [Right Arm] Blood Pressure Mean Blood Pressure Mean [Right Arm] Blood Pressure Position [Right Arm] Pulse Oximetry 95 95 96 Oxygen Delivery Method Sepsis Recent Fever Within 48 Hours Sepsis New/Unexplained Change in Mental Status Sepsis Action Taken by Nursing 02/10/22 22:49 02/10/22 22:50 02/10/22 22:51 Temperature Temperature Source Pulse Rate 41 L 40 L 35 L Pulse Rate [Apical] Pulse Rate from SpO2 Sensor 43 L 40 L 36 L Pulse Rhythm [Apical] Pulse Strength [Apical] Respiratory Rate 12 17 17 Respiratory Effort / Characteristics Respiratory Depth Respiratory Pattern Blood Pressure Blood Pressure [Right Arm] Blood Pressure Mean Blood Pressure Mean [Right Arm] Blood Pressure Position [Right Arm] Pulse Oximetry 95 96 96 Oxygen Delivery Method Sepsis Recent Fever Within 48 Hours Sepsis New/Unexplained Change in Mental Status Sepsis Action Taken by Nursing 02/10/22 22:52 02/10/22 22:53 02/10/22 22:54 Temperature Temperature Source Pulse Rate 44 L 39 L 37 L Pulse Rate [Apical] Pulse Rate from SpO2 Sensor 40 L 39 L 39 L Pulse Rhythm [Apical] Pulse Strength [Apical] Respiratory Rate 18 14 13 Respiratory Effort / Characteristics Respiratory Depth Respiratory Pattern Blood Pressure Blood Pressure [Right Arm] Blood Pressure Mean Blood Pressure Mean [Right Arm] Blood Pressure Position [Right Arm] Pulse Oximetry 94 98 95 Oxygen Delivery Method Sepsis Recent Fever Within 48 Hours Sepsis New/Unexplained Change in Mental Status Sepsis Action Taken by Nursing 02/10/22 22:55 02/10/22 22:56 02/10/22 22:57 Temperature Temperature Source Pulse Rate 40 L 37 L 40 L Pulse Rate [Apical] Pulse Rate from SpO2 Sensor 39 L 39 L 39 L Pulse Rhythm [Apical] Pulse Strength [Apical] Respiratory Rate 15 14 12 Respiratory Effort / Characteristics Respiratory Depth Respiratory Pattern Blood Pressure Blood Pressure [Right Arm] Blood Pressure Mean Blood Pressure Mean [Right Arm] Blood Pressure Position [Right Arm] Pulse Oximetry 96 96 97 Oxygen Delivery Method Sepsis Recent Fever Within 48 Hours Sepsis New/Unexplained Change in Mental Status Sepsis Action Taken by Nursing 02/10/22 22:58 02/10/22 22:59 02/10/22 23:00 Temperature Temperature Source Pulse Rate 40 L 39 L 40 L Pulse Rate [Apical] Pulse Rate from SpO2 Sensor 39 L 39 L 40 L Pulse Rhythm [Apical] Pulse Strength [Apical] Respiratory Rate 19 13 18 Respiratory Effort / Characteristics Respiratory Depth Respiratory Pattern Blood Pressure 147/85 H Blood Pressure [Right Arm] Blood Pressure Mean 105 Blood Pressure Mean [Right Arm] Blood Pressure Position [Right Arm] Pulse Oximetry 99 98 96 Oxygen Delivery Method Sepsis Recent Fever Within 48 Hours Sepsis New/Unexplained Change in Mental Status Sepsis Action Taken by Nursing 02/10/22 23:02 02/10/22 23:03 02/10/22 23:04 Temperature Temperature Source Pulse Rate 40 L 40 L 40 L Pulse Rate [Apical] Pulse Rate from SpO2 Sensor 40 L 40 L 40 L Pulse Rhythm [Apical] Pulse Strength [Apical] Respiratory Rate 16 20 14 Respiratory Effort / Characteristics Respiratory Depth Respiratory Pattern Blood Pressure Blood Pressure [Right Arm] Blood Pressure Mean Blood Pressure Mean [Right Arm] Blood Pressure Position [Right Arm] Pulse Oximetry 96 98 100 Oxygen Delivery Method Sepsis Recent Fever Within 48 Hours Sepsis New/Unexplained Change in Mental Status Sepsis Action Taken by Nursing 02/10/22 23:05 02/10/22 23:06 02/10/22 23:07 Temperature Temperature Source Pulse Rate 41 L 139 H 132 H Pulse Rate [Apical] Pulse Rate from SpO2 Sensor 42 L 123 H 132 H Pulse Rhythm [Apical] Pulse Strength [Apical] Respiratory Rate 16 16 21 Respiratory Effort / Characteristics Respiratory Depth Respiratory Pattern Blood Pressure 163/108 H Blood Pressure [Right Arm] Blood Pressure Mean 126 Blood Pressure Mean [Right Arm] Blood Pressure Position [Right Arm] Pulse Oximetry 95 94 97 Oxygen Delivery Method Sepsis Recent Fever Within 48 Hours Sepsis New/Unexplained Change in Mental Status Sepsis Action Taken by Nursing 02/10/22 23:09 02/10/22 23:10 02/10/22 23:11 Temperature Temperature Source Pulse Rate 130 H 131 H 134 H Pulse Rate [Apical] Pulse Rate from SpO2 Sensor 131 H 133 H 133 H Pulse Rhythm [Apical] Pulse Strength [Apical] Respiratory Rate 28 H 20 29 H Respiratory Effort / Characteristics Respiratory Depth Respiratory Pattern Blood Pressure Blood Pressure [Right Arm] Blood Pressure Mean Blood Pressure Mean [Right Arm] Blood Pressure Position [Right Arm] Pulse Oximetry 98 97 98 Oxygen Delivery Method Sepsis Recent Fever Within 48 Hours Sepsis New/Unexplained Change in Mental Status Sepsis Action Taken by Nursing 02/10/22 23:12 02/10/22 23:13 02/10/22 23:14 Temperature Temperature Source Pulse Rate 132 H 131 H 132 H Pulse Rate [Apical] Pulse Rate from SpO2 Sensor 131 H 131 H 134 H Pulse Rhythm [Apical] Pulse Strength [Apical] Respiratory Rate 21 18 23 Respiratory Effort / Characteristics Respiratory Depth Respiratory Pattern Blood Pressure Blood Pressure [Right Arm] Blood Pressure Mean Blood Pressure Mean [Right Arm] Blood Pressure Position [Right Arm] Pulse Oximetry 97 98 97 Oxygen Delivery Method Sepsis Recent Fever Within 48 Hours Sepsis New/Unexplained Change in Mental Status Sepsis Action Taken by Nursing 02/10/22 23:28 02/10/22 23:30 02/10/22 23:31 Temperature Temperature Source Pulse Rate 57 L 61 54 L Pulse Rate [Apical] Pulse Rate from SpO2 Sensor 57 L 57 L 54 L Pulse Rhythm [Apical] Pulse Strength [Apical] Respiratory Rate 17 14 25 H Respiratory Effort / Characteristics Respiratory Depth Respiratory Pattern Blood Pressure 147/98 H Blood Pressure [Right Arm] Blood Pressure Mean 114 Blood Pressure Mean [Right Arm] Blood Pressure Position [Right Arm] Pulse Oximetry 96 94 86 L Oxygen Delivery Method Sepsis Recent Fever Within 48 Hours Sepsis New/Unexplained Change in Mental Status Sepsis Action Taken by Nursing 02/10/22 23:32 02/10/22 23:33 02/10/22 23:34 Temperature Temperature Source Pulse Rate 47 L 56 L 50 L Pulse Rate [Apical] Pulse Rate from SpO2 Sensor 58 L 52 L 44 L Pulse Rhythm [Apical] Pulse Strength [Apical] Respiratory Rate 19 22 23 Respiratory Effort / Characteristics Respiratory Depth Respiratory Pattern Blood Pressure Blood Pressure [Right Arm] Blood Pressure Mean Blood Pressure Mean [Right Arm] Blood Pressure Position [Right Arm] Pulse Oximetry 91 96 94 Oxygen Delivery Method Sepsis Recent Fever Within 48 Hours Sepsis New/Unexplained Change in Mental Status Sepsis Action Taken by Nursing 02/10/22 23:35 02/10/22 23:36 02/10/22 23:37 Temperature Temperature Source Pulse Rate 49 L 49 L 47 L Pulse Rate [Apical] Pulse Rate from SpO2 Sensor 48 L 43 L 44 L Pulse Rhythm [Apical] Pulse Strength [Apical] Respiratory Rate 24 23 14 Respiratory Effort / Characteristics Respiratory Depth Respiratory Pattern Blood Pressure Blood Pressure [Right Arm] Blood Pressure Mean Blood Pressure Mean [Right Arm] Blood Pressure Position [Right Arm] Pulse Oximetry 95 96 94 Oxygen Delivery Method Sepsis Recent Fever Within 48 Hours Sepsis New/Unexplained Change in Mental Status Sepsis Action Taken by Nursing 02/10/22 23:38 02/10/22 23:39 02/10/22 23:40 Temperature Temperature Source Pulse Rate 38 L 46 L 51 L Pulse Rate [Apical] Pulse Rate from SpO2 Sensor 41 L 52 L 44 L Pulse Rhythm [Apical] Pulse Strength [Apical] Respiratory Rate 20 15 20 Respiratory Effort / Characteristics Respiratory Depth Respiratory Pattern Blood Pressure Blood Pressure [Right Arm] Blood Pressure Mean Blood Pressure Mean [Right Arm] Blood Pressure Position [Right Arm] Pulse Oximetry 96 97 96 Oxygen Delivery Method Sepsis Recent Fever Within 48 Hours Sepsis New/Unexplained Change in Mental Status Sepsis Action Taken by Nursing 02/10/22 23:41 02/10/22 23:42 02/10/22 23:43 Temperature Temperature Source Pulse Rate 39 L 46 L 51 L Pulse Rate [Apical] Pulse Rate from SpO2 Sensor 42 L 42 L 42 L Pulse Rhythm [Apical] Pulse Strength [Apical] Respiratory Rate 17 13 23 Respiratory Effort / Characteristics Respiratory Depth Respiratory Pattern Blood Pressure Blood Pressure [Right Arm] Blood Pressure Mean Blood Pressure Mean [Right Arm] Blood Pressure Position [Right Arm] Pulse Oximetry 96 86 L 96 Oxygen Delivery Method Sepsis Recent Fever Within 48 Hours Sepsis New/Unexplained Change in Mental Status Sepsis Action Taken by Nursing 02/10/22 23:44 02/10/22 23:45 02/10/22 23:46 Temperature Temperature Source Pulse Rate 48 L 46 L 40 L Pulse Rate [Apical] Pulse Rate from SpO2 Sensor 40 L 41 L 43 L Pulse Rhythm [Apical] Pulse Strength [Apical] Respiratory Rate 20 22 13 Respiratory Effort / Characteristics Respiratory Depth Respiratory Pattern Blood Pressure Blood Pressure [Right Arm] Blood Pressure Mean Blood Pressure Mean [Right Arm] Blood Pressure Position [Right Arm] Pulse Oximetry 97 97 95 Oxygen Delivery Method Sepsis Recent Fever Within 48 Hours Sepsis New/Unexplained Change in Mental Status Sepsis Action Taken by Nursing 02/10/22 23:47 02/10/22 23:48 02/10/22 23:49 Temperature Temperature Source Pulse Rate 50 L 46 L 51 L Pulse Rate [Apical] Pulse Rate from SpO2 Sensor 49 L 40 L 50 L Pulse Rhythm [Apical] Pulse Strength [Apical] Respiratory Rate 35 H 23 24 Respiratory Effort / Characteristics Respiratory Depth Respiratory Pattern Blood Pressure Blood Pressure [Right Arm] Blood Pressure Mean Blood Pressure Mean [Right Arm] Blood Pressure Position [Right Arm] Pulse Oximetry 97 97 92 Oxygen Delivery Method Sepsis Recent Fever Within 48 Hours Sepsis New/Unexplained Change in Mental Status Sepsis Action Taken by Nursing 02/10/22 23:50 02/10/22 23:51 02/10/22 23:52 Temperature Temperature Source Pulse Rate 46 L 46 L 41 L Pulse Rate [Apical] Pulse Rate from SpO2 Sensor 65 46 L 42 L Pulse Rhythm [Apical] Pulse Strength [Apical] Respiratory Rate 17 20 14 Respiratory Effort / Characteristics Respiratory Depth Respiratory Pattern Blood Pressure Blood Pressure [Right Arm] Blood Pressure Mean Blood Pressure Mean [Right Arm] Blood Pressure Position [Right Arm] Pulse Oximetry 97 93 97 Oxygen Delivery Method Sepsis Recent Fever Within 48 Hours Sepsis New/Unexplained Change in Mental Status Sepsis Action Taken by Nursing 02/10/22 23:53 02/10/22 23:54 02/10/22 23:55 Temperature Temperature Source Pulse Rate 58 L 63 58 L Pulse Rate [Apical] Pulse Rate from SpO2 Sensor 42 L 62 Pulse Rhythm [Apical] Pulse Strength [Apical] Respiratory Rate 17 18 14 Respiratory Effort / Characteristics Respiratory Depth Respiratory Pattern Blood Pressure Blood Pressure [Right Arm] Blood Pressure Mean Blood Pressure Mean [Right Arm] Blood Pressure Position [Right Arm] Pulse Oximetry 97 83 L Oxygen Delivery Method Sepsis Recent Fever Within 48 Hours Sepsis New/Unexplained Change in Mental Status Sepsis Action Taken by Nursing 02/10/22 23:56 02/10/22 23:57 02/10/22 23:58 Temperature Temperature Source Pulse Rate 59 L 61 64 Pulse Rate [Apical] Pulse Rate from SpO2 Sensor Pulse Rhythm [Apical] Pulse Strength [Apical] Respiratory Rate 16 16 21 Respiratory Effort / Characteristics Respiratory Depth Respiratory Pattern Blood Pressure Blood Pressure [Right Arm] Blood Pressure Mean Blood Pressure Mean [Right Arm] Blood Pressure Position [Right Arm] Pulse Oximetry Oxygen Delivery Method Sepsis Recent Fever Within 48 Hours Sepsis New/Unexplained Change in Mental Status Sepsis Action Taken by Nursing 02/10/22 23:59 02/11/22 00:00 02/11/22 00:01 Temperature Temperature Source Pulse Rate 59 L 75 69 Pulse Rate [Apical] Pulse Rate from SpO2 Sensor Pulse Rhythm [Apical] Pulse Strength [Apical] Respiratory Rate 22 16 22 Respiratory Effort / Characteristics Respiratory Depth Respiratory Pattern Blood Pressure Blood Pressure [Right Arm] Blood Pressure Mean Blood Pressure Mean [Right Arm] Blood Pressure Position [Right Arm] Pulse Oximetry Oxygen Delivery Method Sepsis Recent Fever Within 48 Hours Sepsis New/Unexplained Change in Mental Status Sepsis Action Taken by Nursing 02/11/22 00:02 02/11/22 00:03 02/11/22 00:04 Temperature Temperature Source Pulse Rate 63 57 L 146 H Pulse Rate [Apical] Pulse Rate from SpO2 Sensor Pulse Rhythm [Apical] Pulse Strength [Apical] Respiratory Rate 19 15 16 Respiratory Effort / Characteristics Respiratory Depth Respiratory Pattern Blood Pressure Blood Pressure [Right Arm] Blood Pressure Mean Blood Pressure Mean [Right Arm] Blood Pressure Position [Right Arm] Pulse Oximetry Oxygen Delivery Method Sepsis Recent Fever Within 48 Hours Sepsis New/Unexplained Change in Mental Status Sepsis Action Taken by Nursing 02/11/22 00:05 02/11/22 00:06 02/11/22 00:07 Temperature Temperature Source Pulse Rate 140 H 139 H Pulse Rate [Apical] Pulse Rate from SpO2 Sensor Pulse Rhythm [Apical] Pulse Strength [Apical] Respiratory Rate 24 19 16 Respiratory Effort / Characteristics Respiratory Depth Respiratory Pattern Blood Pressure Blood Pressure [Right Arm] Blood Pressure Mean Blood Pressure Mean [Right Arm] Blood Pressure Position [Right Arm] Pulse Oximetry Oxygen Delivery Method Sepsis Recent Fever Within 48 Hours Sepsis New/Unexplained Change in Mental Status Sepsis Action Taken by Nursing 02/11/22 00:08 02/11/22 00:09 02/11/22 00:10 Temperature Temperature Source Pulse Rate 138 H 139 H 137 H Pulse Rate [Apical] Pulse Rate from SpO2 Sensor 138 H 144 H 139 H Pulse Rhythm [Apical] Pulse Strength [Apical] Respiratory Rate 21 21 22 Respiratory Effort / Characteristics Respiratory Depth Respiratory Pattern Blood Pressure Blood Pressure [Right Arm] Blood Pressure Mean Blood Pressure Mean [Right Arm] Blood Pressure Position [Right Arm] Pulse Oximetry 96 96 94 Oxygen Delivery Method Sepsis Recent Fever Within 48 Hours Sepsis New/Unexplained Change in Mental Status Sepsis Action Taken by Nursing 02/11/22 00:11 02/11/22 00:12 02/11/22 00:13 Temperature Temperature Source Pulse Rate 137 H 136 H 137 H Pulse Rate [Apical] Pulse Rate from SpO2 Sensor 137 H 136 H 137 H Pulse Rhythm [Apical] Pulse Strength [Apical] Respiratory Rate 23 26 H 21 Respiratory Effort / Characteristics Respiratory Depth Respiratory Pattern Blood Pressure Blood Pressure [Right Arm] Blood Pressure Mean Blood Pressure Mean [Right Arm] Blood Pressure Position [Right Arm] Pulse Oximetry 96 97 96 Oxygen Delivery Method Sepsis Recent Fever Within 48 Hours Sepsis New/Unexplained Change in Mental Status Sepsis Action Taken by Nursing 02/11/22 00:14 02/11/22 00:15 02/11/22 00:16 Temperature Temperature Source Pulse Rate 136 H 137 H 137 H Pulse Rate [Apical] Pulse Rate from SpO2 Sensor 136 H 137 H 138 H Pulse Rhythm [Apical] Pulse Strength [Apical] Respiratory Rate 16 20 19 Respiratory Effort / Characteristics Respiratory Depth Respiratory Pattern Blood Pressure Blood Pressure [Right Arm] Blood Pressure Mean Blood Pressure Mean [Right Arm] Blood Pressure Position [Right Arm] Pulse Oximetry 97 96 96 Oxygen Delivery Method Sepsis Recent Fever Within 48 Hours Sepsis New/Unexplained Change in Mental Status Sepsis Action Taken by Nursing 02/11/22 00:17 02/11/22 00:18 Temperature Temperature Source Pulse Rate 137 H 136 H Pulse Rate [Apical] Pulse Rate from SpO2 Sensor 138 H 136 H Pulse Rhythm [Apical] Pulse Strength [Apical] Respiratory Rate 21 21 Respiratory Effort / Characteristics Respiratory Depth Respiratory Pattern Blood Pressure Blood Pressure [Right Arm] Blood Pressure Mean Blood Pressure Mean [Right Arm] Blood Pressure Position [Right Arm] Pulse Oximetry 95 97 Oxygen Delivery Method Sepsis Recent Fever Within 48 Hours Sepsis New/Unexplained Change in Mental Status Sepsis Action Taken by Nursing GENERAL: alert, well appearing, well nourished, no distress, non-toxic EYE EXAM: normal conjunctiva, PERRL and EOM's grossly intact OROPHARYNX: no exudate, no erythema, lips, buccal mucosa, and tongue normal and mucous membranes are moist NECK: supple, no nuchal rigidity, no adenopathy, non-tender LUNGS: Clear to auscultation. Normal chest wall mechanics, no w/r/r HEART: no murmurs, S1 normal and S2 normal, tachycardia @ 152 ABDOMEN: abdomen soft, non-tender, normo-active bowel sounds, no masses, no rebound or guarding. Colostomy noted. BACK: Back is symmetrical on inspection and there is no deformity, no midline tenderness, no CVA tenderness. SKIN: no rashes and no bruising UPPER EXTREMITIES: upper extremities are grossly normal. FROM, nml pulses b/l. LOWER EXTREMITIES: No pitting edema. FROM, nml pulses b/l. NEURO EXAM: Normal sensorium, cranial nerves II-XII grossly intact, normal speech, no gross weakness of arms, no gross weakness of legs. Gross sensation intact. Course Course 1849: Patient still tachycardic after IVF bolus. 1935: Patient given metoprolol IV as she hadn't yet taken her evening oral metoprolol. She immediately dropped to a slower rate that appeared to be sinus with frequent PVC's but had a pause at one point with near syncope. I re- evaluated the patient at bedside. 1944: Glucagon ordered to possible counter the metoprolol effects given intermittent bradycardia with reported dizziness/fatigue. 2035: Patient now back up to elevated HR in 130's, appears more sinus tachyc ardia. IV magnesium ordered for repletion. Awaiting urine. 2101: Patient back to bradycardai but intermittently into 30's/40's and appears junctional. 2239: Discussed with DR. Stark. 2244: Discussed with hospitalist. Administered Medications Acetaminophen (Acetaminophen 325 Mg Tab) 650 mg PO Q4H PRN PRN Reason: Mild pain (rating 1,2,3) Stop: 03/13/22 13:32 Last Admin: 02/12/22 08:37 Dose: 650 mg Documented by: [id number] Admin: 02/11/22 23:54 Dose: 650 mg Documented by: [id number] Amlodipine Besylate (Amlodipine Besylate 5 Mg Tab) [facility] [place] Stop: 03/13/22 15:29 Last Admin: 02/12/22 08:31 Dose: Not Given Documented by: [id number] Admin: 02/11/22 15:54 Dose: 10 mg Documented by: [id number] Acetaminophen (Ofirmev) 50 mls @ 260 mls/hr IV Q4H PRN PRN Reason: Pain Stop: 02/14/22 06:35 Last Infusion: 02/11/22 16:10 Dose: 0 mls/hr Documented by: [id number] Admin: 02/11/22 15:54 Dose: 260 mls/hr Documented by: [id number] Infusion: 02/11/22 09:57 Dose: 0 mls/hr Documented by: [id number] Admin: 02/11/22 09:35 Dose: 260 mls/hr Documented by: [id number] Lactated Ringer's (Lr) 1,000 mls @ 15 mls/hr IV .Q24H [facility] Stop: 02/14/22 05:09 Last Admin: 02/12/22 08:31 Dose: Not Given Documented by: [id number] Admin: 02/11/22 11:10 Dose: Not Given Documented by: [id number] Levothyroxine Sodium ([facility] S[facility] 25 Mcg Tablet) [facility] Stop: 03/13/22 06:29 Last Admin: 02/12/22 05:02 Dose: 25 mcg Documented by: [id number] Admin: 02/11/22 06:24 Dose: 25 mcg Documented by: [id number] Lorazepam (Lorazepam 1 Mg Tab) 1 mg PO TID [facility] Stop: 03/13/22 15:29 Last Admin: 02/12/22 08:21 Dose: 1 mg Documented by: [id number] Admin: 02/11/22 20:36 Dose: 1 mg Documented by: [id number] Admin: 02/11/22 15:45 Dose: 1 mg Documented by: [id number] Metoprolol Succinate (Metoprolol Succ 50mg Ext Rel Tab) 100 mg PO [facility] Stop: 03/14/22 08:59 Last Admin: 02/12/22 08:21 Dose: 100 mg Documented by: [id number] Pantoprazole Sodium (Pantoprazole 40 Mg Tab) 40 mg PO [facility] Stop: 03/13/22 08:59 Last Admin: 02/12/22 08:21 Dose: 40 mg Documented by: [id number] Admin: 02/11/22 14:16 Dose: 40 mg Documented by: [id number] Discontinued Medications Ampicillin Sodium (Ampicillin Sod 1 Gm Vial) 1 mg IV Q4H [facility]; Protocol Stop: 02/21/22 06:04 Last Admin: 02/11/22 06:31 Dose: Not Given Documented by: [id number] Bacitracin (Bacitracin Oint 0.9 Gm Pkt) Confirm Administered Dose 1 appln .ROUTE .STK-MED [facility] Stop: 02/11/22 13:15 Last Admin: 02/11/22 15:22 Dose: 1 appln Documented by: [id number] Bupivacaine HCl (Bupivacaine 0.25% 30 Ml Vial) Confirm Administered Dose 30 ml .ROUTE .ST-MED [facility] Stop: 02/11/22 11:42 Last Admin: 02/11/22 13:25 Dose: 30 ml Documented by: [id number] Cefazolin Sodium (Cefazolin 330 Mg/Ml 1 Gm Vial) Confirm Administered Dose 990 mg .ROUTE .STK-MED [facility] Stop: 02/11/22 11:32 Last Admin: 02/11/22 13:24 Dose: 990 mg Documented by: [id number] Diclofenac Sodium (Diclofenac Sod 1% Gel 100 Gm Tube) 2 gm EXT NOW STA Stop: 02/10/22 21:39 Last Admin: 02/10/22 22:02 Dose: 2 gm Documented by: [id number] Fentanyl Citrate (Fentanyl Citrate 100 Mcg/2 Ml Vial) Confirm Administered Dose 100 mcg .ROUTE .STK-MED ONE Stop: 02/11/22 11:32 Last Admin: 02/11/22 13:24 Dose: 50 mcg Documented by: [id number] Glucagon (Glucagon For Inj 1 Mg Vial) Confirm Administered Dose 2 mg .ROUTE .STK-MED ONE Stop: 02/10/22 20:22 Last Admin: 02/10/22 20:26 Dose: 2 mg Documented by: [id number] Heparin Sodium (Porcine) (Heparin Sod (Porcine) 1000 Unit/Ml) 3,000 units IV NOW ONE Stop: 02/11/22 08:31 Last Admin: 02/11/22 09:54 Dose: Not Given Documented by: [id number] Heparin Sodium/Dextrose (Heparin Iv Adult Wt-Based Low-Dose *No* Bolus Protocol) 1 ea N/A ONE ONE; Protocol Stop: 02/10/22 23:11 Last Admin: 02/11/22 00:56 Dose: 1 ea Documented by: [id number] Sodium Chloride (Nss 1000ml) 500 mls @ 999 mls/hr IV .Q31M ONE Stop: 02/10/22 19:08 Last Infusion: 02/10/22 21:12 Dose: 0 mls/hr Documented by: [id number] Admin: 02/10/22 18:55 Dose: 999 mls/hr Documented by: [id number] Sodium Chloride (Nss 1000ml) 1,000 mls @ 125 mls/hr IV .Q8H [facility] Stop: 03/12/22 19:14 Last Infusion: 02/11/22 17:26 Dose: 0 mls/hr Documented by: [id number] Admin: 02/11/22 15:20 Dose: 125 mls/hr Documented by: [id number] Infusion: 02/11/22 11:19 Dose: 125 mls/hr Documented by: [id number] Admin: 02/11/22 03:19 Dose: 125 mls/hr Documented by: [id number] Infusion: 02/11/22 03:19 Dose: 125 mls/hr Documented by: [id number] Admin: 02/10/22 20:30 Dose: 125 mls/hr Documented by: [id number] Magnesium Sulfate/Dextrose (Magnesium Sulfate / D5w) 1 gm in 100 mls @ 100 mls/hr IV Q1H [facility] Stop: 02/10/22 22:07 Last Infusion: 02/11/22 00:36 Dose: 0 mls/hr Documented by: [id number] Admin: 02/10/22 22:02 Dose: 100 mls/hr Documented by: [id number] Infusion: 02/10/22 21:25 Dose: 100 mls/hr Documented by: [id number] Admin: 02/10/22 20:25 Dose: 100 mls/hr Documented by: [id number] Acetaminophen (Ofirmev) 1,000 mg in 100 mls @ 400 mls/hr IV NOW STA Stop: 02/10/22 21:52 Last Infusion: 02/11/22 00:37 Dose: 0 mls/hr Documented by: [id number] Admin: 02/10/22 22:02 Dose: 400 mls/hr Documented by: [id number] Ceftriaxone Sodium (Rocephin) 1,000 mg in 50 mls @ 100 mls/hr IV NOW STA Stop: 02/10/22 22:29 Last Infusion: 02/11/22 01:08 Dose: 0 mls/hr Documented by: [id number] Infusion: 02/10/22 22:45 Dose: 0 mls/hr Documented by: [id number] Admin: 02/10/22 22:18 Dose: 100 mls/hr Documented by: [id number] Magnesium Sulfate/Dextrose (Magnesium Sulfate / D5w) 1 gm in 100 mls @ 50 mls/hr IV Q2H [facility] Stop: 02/11/22 04:59 Last Infusion: 02/11/22 08:16 Dose: 0 mls/hr Documented by: [id number] Admin: 02/11/22 06:13 Dose: 50 mls/hr Documented by: [id number] Infusion: 02/11/22 06:07 Dose: 0 mls/hr Documented by: [id number] Admin: 02/11/22 02:46 Dose: 50 mls/hr Documented by: [id number] Infusion: 02/11/22 01:21 Dose: 50 mls/hr Documented by: [id number] Admin: 02/10/22 23:21 Dose: 50 mls/hr Documented by: [id number] Potassium Chloride (K Edd / Wtr) 10 meq in 100 mls @ 100 mls/hr IV ONE ONE; Protocol Stop: 02/10/22 23:45 Last Infusion: 02/11/22 01:07 Dose: 0 mls/hr Documented by: [id number] Admin: 02/10/22 23:46 Dose: 100 mls/hr Documented by: [id number] Heparin Sodium/Dextrose (Heparin Sodium/Dextrose) 25,000 units in 500 mls @ 14 mls/hr IV .Q24H [facility]; Protocol Stop: 03/12/22 23:14 Last Titration: 02/11/22 11:22 Dose: 0 units/hr, 0 mls/hr Documented by: [id number] Cosigned by: [id number] Titration: 02/11/22 09:51 Dose: 0 units/hr, 0 mls/hr Documented by: [id number] Cosigned by: [id number] Titration: 02/11/22 08:18 Dose: 700 units/hr, 14 mls/hr Documented by: [id number] Cosigned by: [id number] Admin: 02/11/22 00:56 Dose: 550 units/hr, 11 mls/hr Documented by: [id number] Cosigned by: [id number] Piperacillin Sod/Tazobactam (Sod 3.375 gm/ Dextrose) 115 mls @ 230 mls/hr IV NOW ONE; Protocol Stop: 02/11/22 07:29 Last Infusion: 02/11/22 08:48 Dose: 0 mls/hr Documented by: [id number] Admin: 02/11/22 07:57 Dose: 230 mls/hr Documented by: [id number] Piperacillin Sod/Tazobactam (Sod 3.375 gm/ Dextrose) 115 mls @ 28.75 mls/hr IV Q8H [facility]; Protocol Stop: 02/21/22 11:59 Last Infusion: 02/12/22 11:24 Dose: 0 mls/hr Documented by: [id number] Admin: 02/12/22 08:37 Dose: 28.8 mls/hr Documented by: [id number] Infusion: 02/12/22 03:57 Dose: 0 mls/hr Documented by: [id number] Admin: 02/11/22 23:55 Dose: 28.8 mls/hr Documented by: [id number] Infusion: 02/11/22 20:40 Dose: 0 mls/hr Documented by: [id number] Admin: 02/11/22 15:21 Dose: 28.8 mls/hr Documented by: [id number] Potassium Chloride (K Edd / Wtr) 10 meq in 100 mls @ 100 mls/hr IV Q1H [facility]; Protocol Stop: 02/11/22 11:14 Last Infusion: 02/11/22 16:21 Dose: 0 mls/hr Documented by: [id number] Admin: 02/11/22 14:16 Dose: 50 mls/hr Documented by: [id number] Infusion: 02/11/22 11:09 Dose: 0 mls/hr Documented by: [id number] Admin: 02/11/22 09:36 Dose: 100 mls/hr Documented by: [id number] Ketorolac Tromethamine (Ketorolac Tromethamine 15 Mg/Ml Vial) 10 mg IV NOW ONE Stop: 02/12/22 04:01 Last Admin: 02/12/22 04:10 Dose: 10 mg Documented by: [id number] Lidocaine (Lidocaine 5% 1 Patch) 1 patch TD NOW STA Stop: 02/10/22 19:00 Last Admin: 02/10/22 19:34 Dose: 1 patch Documented by: [id number] Lidocaine HCl (Lidocaine 1% Local 20 Ml Vial) Confirm Administered Dose 20 ml .ROUTE .[address]-MED ONE Stop: 02/11/22 11:42 Last Admin: 02/11/22 13:25 Dose: 20 ml Documented by: [id number] Lorazepam (Lorazepam 2 Mg/1 Ml Vial) 0.25 mg IV NOW STA Stop: 02/10/22 20:03 Last Admin: 02/10/22 21:07 Dose: 0.25 mg Documented by: [id number] Metoprolol Tartrate (Metoprolol Tartrate 1 Mg/Ml Vial) 5 mg IV NOW STA; Protocol Stop: 02/10/22 19:30 Last Admin: 02/10/22 20:00 Dose: 5 mg Documented by: [id number] Metoprolol Tartrate (Metoprolol Tartrate 1 Mg/Ml Vial) Confirm Administered Dose 5 mg IV .STK-MED ONE Stop: 02/11/22 12:27 Last Admin: 02/11/22 15:22 Dose: Not Given Documented by: [id number] Metoprolol Tartrate (Metoprolol Tartrate 50 Mg Tab) 50 mg PO ONE ONE Stop: 02/11/22 21:01 Last Admin: 02/11/22 21:12 Dose: 50 mg Documented by: [id number] Metoprolol Tartrate (Metoprolol Tartrate 1 Mg/Ml Vial) 5 mg IV NOW STA; Protocol Stop: 02/12/22 06:42 Last Admin: 02/12/22 06:47 Dose: 5 mg Documented by: [id number] Metoprolol Tartrate (Metoprolol Tartrate 1 Mg/Ml Vial) Confirm Administered Dose 5 mg IV .STK-MED ONE Stop: 02/12/22 06:44 Last Admin: 02/12/22 06:47 Dose: Not Given Documented by: [id number] Metoprolol Tartrate (Metoprolol Tartrate 1 Mg/Ml Vial) 5 mg IV NOW STA; Protocol Stop: 02/12/22 07:52 Last Admin: 02/12/22 08:21 Dose: 5 mg Documented by: [id number] Midazolam HCl (Midazolam Hcl 1 Mg/Ml 2ml Vial) Confirm Administered Dose 2 mg .ROUTE .STK-MED ONE Stop: 02/11/22 11:32 Last Admin: 02/11/22 13:25 Dose: 2 mg Documented by: [id number] Miscellaneous (Remove Lidoderm Patch) 1 ea N/A DAILY@2100 [facility] Stop: 03/12/22 20:59 Last Admin: 02/11/22 20:41 Dose: Not Given Documented by: [id number] Admin: 02/10/22 22:18 Dose: 1 ea Documented by: [id number] Potassium Chloride (Potassium Chloride Crtab 20 Meq Tabcr) 40 meq PO NOW STA Stop: 02/12/22 09:23 Last Admin: 02/12/22 11:18 Dose: 40 meq Documented by: [id number] Sterile Water (Water, Sterile For Inj 10 Ml Vial) Confirm Administered Dose 10 ml .ROUTE .STK-MED ONE Stop: 02/11/22 11:42 Last Admin: 02/11/22 13:25 Dose: 10 ml Documented by: [id number] Vancomycin HCl (Vancomycin Hcl 1000mg/20ml Vial) Confirm Administered Dose 50 mg .ROUTE .STK-MED ONE Stop: 02/11/22 11:43 Last Admin: 02/11/22 13:25 Dose: 50 mg Documented by: [id number] Critical Care Time Critical Care Time: Yes Total Critical Care Time: 60 Critical care of 60 min performed to assess and manage high likelihood of life- threatening dysrhythmia, involving labs and imaging performed with assessment to evaluate dysrhythmia diagnosis with frequent reassessment. This time includes bedside time, treatment discussions with patient/family/consultants, documentation time and excludes procedure time. Medical Decision Making Differential Diagnosis Differential Diagnosis includes but is not limited to dehydration, stroke, anemia, hypoglycemia, hyponatremia, hypernatremia, urinary tract infection, pneumonia, bronchitis, sepsis, gastroenteritis, additional abdominal pathology, metabolic abnormalities and infections. Medical Records Attestation: I reviewed the patient's medical records. Home Medications Current Medication List: was personally reviewed by me Laboratory Data Attestation: I reviewed the patient's lab results. Result diagrams: 02/12/22 07:24 02/12/22 07:24 Lab Results 02/10/22 02/10/22 02/10/22 Range/Units 18:21 18:21 18:21 WBC 9.21 (4.8-10.8) K/uL RBC 4.82 (4.2-5.4) M/uL Hgb 15.3 (12.0-16.0) g/dL Hct 45.9 (37-47) % MCV 95.2 (80-100) fL MCH 31.7 (25-34) pg MCHC 33.3 (32-36) g/dL RDW Std Deviation 47.3 H (36.4-46.3) fL RDW Coeff of Hubert 13.5 (11.5-14.5) % Plt Count 273 (130-400) K/uL MPV 9.5 (7.4-10.4) fL Immature Gran % (Auto) 0.2 % Neut % (Auto) 63.1 % Lymph % (Auto) 23.9 % Duval % (Auto) 10.7 % Eos % (Auto) 1.8 % Baso % (Auto) 0.3 % Neut # (Auto) 5.80 (1.4-6.5) K/uL Lymph # (Auto) 2.20 (1.2-3.4) K/uL Duval # (Auto) 0.99 H (0.11-0.59) K/uL Eos # (Auto) 0.17 (0-0.5) K/uL Baso # (Auto) 0.03 (0-0.2) K/uL Immature Gran # (Auto) 0.02 (0.00-0.02) K/uL Sodium 139 (136-145) mmol/L Potassium (3.5-5.1) mmol/L Chloride 104 (98-107) mmol/L Carbon Dioxide 23 (21-32) mmol/L Anion Gap 12 H (3-11) BUN 20 (6-23) mg/dl Creatinine 1.28 H (0.6-1.2) mg/dl Est Cr Clr Drug Dosing 23.5 ml/min Est GFR ( Amer) 44.5 ml/min Est GFR (Non-Af Amer) 38.4 ml/min BUN/Creatinine Ratio 15.6 (10-20) Glucose 133 H (70-99(Fasting)) mg/dl Calcium 9.3 (8.5-10.1) mg/dl Magnesium 1.5 L (1.7-2.4) mg/dl Total Bilirubin 0.4 (0.2-1.0) mg/dl AST (13-39) U/L ALT 33 (7-52) U/L Alkaline Phosphatase 77 (34-104) U/L Troponin I High Sens 56.8 H* (0-14) pg/ml Total Protein 7.2 (6.0-8.3) gm/dl Albumin 3.7 (3.4-5.0) gm/dl Globulin 3.5 (2.5-4.0) gm/dl Albumin/Globulin Ratio 1.1 (0.9-2) Lipase 23 (11-82) U/L TSH 3.645 (0.300-4.500) uIu/ml Urine Color Urine Appearance (Clear) Urine pH (4.5-7.5) Ur Specific Hosmer (1.000-1.030) Urine Protein (Negative) Urine Glucose (UA) (Negative) Urine Ketones (Negative) Urine Blood (Negative) Urine Nitrite (Negative) Urine Bilirubin (Negative) Urine Urobilinogen (Negative) Ur Leukocyte Esterase (Negative) Urine WBC (Auto) (0-5) /hpf Urine RBC (Auto) (0-4) /hpf U Hyaline Cast (Auto) (0-5) /lpf U Epithel Cells (Auto) (0-5) /lpf Urine Bacteria (Auto) (Negative) Lyme Disease IgG Ab (Negative) Lyme Disease IgM Ab (Negative) SARS-CoV-2, RNA, NAAT (NEGATIVE) 02/10/22 02/10/22 02/10/22 Range/Units 20:17 20:40 21:41 WBC (4.8-10.8) K/uL RBC (4.2-5.4) M/uL Hgb (12.0-16.0) g/dL Hct (37-47) % MCV (80-100) fL MCH (25-34) pg MCHC (32-36) g/dL RDW Std Deviation (36.4-46.3) fL RDW Coeff of Hubert (11.5-14.5) % Plt Count (130-400) K/uL MPV (7.4-10.4) fL Immature Gran % (Auto) % Neut % (Auto) % Lymph % (Auto) % Duval % (Auto) % Eos % (Auto) % Baso % (Auto) % Neut # (Auto) (1.4-6.5) K/uL Lymph # (Auto) (1.2-3.4) K/uL Duval # (Auto) (0.11-0.59) K/uL Eos # (Auto) (0-0.5) K/uL Baso # (Auto) (0-0.2) K/uL Immature Gran # (Auto) (0.00-0.02) K/uL Sodium (136-145) mmol/L Potassium 3.9 (3.5-5.1) mmol/L Chloride (98-107) mmol/L Carbon Dioxide (21-32) mmol/L Anion Gap (3-11) BUN (6-23) mg/dl Creatinine (0.6-1.2) mg/dl Est Cr Clr Drug Dosing ml/min Est GFR ( Amer) ml/min Est GFR (Non-Af Amer) ml/min BUN/Creatinine Ratio (10-20) Glucose (70-99(Fasting)) mg/dl Calcium (8.5-10.1) mg/dl Magnesium (1.7-2.4) mg/dl Total Bilirubin (0.2-1.0) mg/dl AST 40 H (13-39) U/L ALT (7-52) U/L Alkaline Phosphatase (34-104) U/L Troponin I High Sens (0-14) pg/ml Total Protein (6.0-8.3) gm/dl Albumin (3.4-5.0) gm/dl Globulin (2.5-4.0) gm/dl Albumin/Globulin Ratio (0.9-2) Lipase (11-82) U/L TSH (0.300-4.500) uIu/ml Urine Color Yellow Urine Appearance Clear (Clear) Urine pH 5.0 (4.5-7.5) Ur Specific Hosmer 1.010 (1.000-1.030) Urine Protein Negative (Negative) Urine Glucose (UA) Negative (Negative) Urine Ketones Negative (Negative) Urine Blood Negative (Negative) Urine Nitrite Positive A (Negative) Urine Bilirubin Negative (Negative) Urine Urobilinogen Negative (Negative) Ur Leukocyte Esterase 1+ H (Negative) Urine WBC (Auto) 10-30 H (0-5) /hpf Urine RBC (Auto) 0-4 (0-4) /hpf U Hyaline Cast (Auto) 1-5 (0-5) /lpf U Epithel Cells (Auto) >30 H (0-5) /lpf Urine Bacteria (Auto) 4+ H (Negative) Lyme Disease IgG Ab Negative (Negative) Lyme Disease IgM Ab Negative (Negative) SARS-CoV-2, RNA, NAAT (NEGATIVE) 02/10/22 Range/Units 22:15 WBC (4.8-10.8) K/uL RBC (4.2-5.4) M/uL Hgb (12.0-16.0) g/dL Hct (37-47) % MCV (80-100) fL MCH (25-34) pg MCHC (32-36) g/dL RDW Std Deviation (36.4-46.3) fL RDW Coeff of Hubert (11.5-14.5) % Plt Count (130-400) K/uL MPV (7.4-10.4) fL Immature Gran % (Auto) % Neut % (Auto) % Lymph % (Auto) % Duval % (Auto) % Eos % (Auto) % Baso % (Auto) % Neut # (Auto) (1.4-6.5) K/uL Lymph # (Auto) (1.2-3.4) K/uL Duval # (Auto) (0.11-0.59) K/uL Eos # (Auto) (0-0.5) K/uL Baso # (Auto) (0-0.2) K/uL Immature Gran # (Auto) (0.00-0.02) K/uL Sodium (136-145) mmol/L Potassium (3.5-5.1) mmol/L Chloride (98-107) mmol/L Carbon Dioxide (21-32) mmol/L Anion Gap (3-11) BUN (6-23) mg/dl Creatinine (0.6-1.2) mg/dl Est Cr Clr Drug Dosing ml/min Est GFR ( Amer) ml/min Est GFR (Non-Af Amer) ml/min BUN/Creatinine Ratio (10-20) Glucose (70-99(Fasting)) mg/dl Calcium (8.5-10.1) mg/dl Magnesium (1.7-2.4) mg/dl Total Bilirubin (0.2-1.0) mg/dl AST (13-39) U/L ALT (7-52) U/L Alkaline Phosphatase (34-104) U/L Troponin I High Sens (0-14) pg/ml Total Protein (6.0-8.3) gm/dl Albumin (3.4-5.0) gm/dl Globulin (2.5-4.0) gm/dl Albumin/Globulin Ratio (0.9-2) Lipase (11-82) U/L TSH (0.300-4.500) uIu/ml Urine Color Urine Appearance (Clear) Urine pH (4.5-7.5) Ur Specific Hosmer (1.000-1.030) Urine Protein (Negative) Urine Glucose (UA) (Negative) Urine Ketones (Negative) Urine Blood (Negative) Urine Nitrite (Negative) Urine Bilirubin (Negative) Urine Urobilinogen (Negative) Ur Leukocyte Esterase (Negative) Urine WBC (Auto) (0-5) /hpf Urine RBC (Auto) (0-4) /hpf U Hyaline Cast (Auto) (0-5) /lpf U Epithel Cells (Auto) (0-5) /lpf Urine Bacteria (Auto) (Negative) Lyme Disease IgG Ab (Negative) Lyme Disease IgM Ab (Negative) SARS-CoV-2, RNA, NAAT NEGATIVE (NEGATIVE) Imaging Data Radiologist's Impression: Chest X-Ray 02/10/22 18:38 SINGLE VIEW CHEST CLINICAL HISTORY: Palpitations. FINDINGS: An AP, portable, upright chest radiograph is compared to chest x-ray and chest CT dated 10/14/2021. The heart is enlarged noting atherosclerotic calcification of the thoracic aorta. The pulmonary vasculature is noncongested. Calcification containing hilar adenopathy is similar to previous. Foci of parenchyma scarring are seen throughout both lungs. There is no airspace consolidation typical for pneumonia. Pleural thickening at the left lung base is similar to previous. No large pleural effusion is seen. Calcification with a masslike opacities in the midlungs are similar to previous. No pneumothorax is identified. The skeletal structures are osteopenic. The bony thorax is grossly intact. IMPRESSION: 1. Cardiomegaly without radiographic evidence of congestive failure. 2. Chronic parenchymal changes as above with no acute cardiopulmonary abnormality identified. ACT 112: Negative or not required by law. Electronically signed by: Deepak Mckeon M.D. 02/10/2022 7:[address] head: No acute intracranial abnormality. Parenchymal atrophy and chronic microvascular ischemic changes. Radiologist: Francis Rodriguez MD ECG Data Attestation: I personally reviewed and interpreted this ECG as follows: Indication: + palpitations and + tachycardia Rate (beats per minute): 151 Rhythm: + atrial flutter ECG Intervals/blocks: + Normal QRS and + Normal QT ECG Fouke: + Normal ECG ST segments: + Nonspecific ST abnormalities Additional Comments: Repeat EKG NSR 68 with 1st degree AV block, nml QRS and QTc, PVC's noted, no acute ST/T wave changes MDM Narrative This is an 86 to female sent to the ER and found to have symptomatic dysrhythmia. Initial EKG here and from [facility] appeared to be a.flutter with consistent HR at 152. LIkely dysrhythmias multifactorial given hx of a.fib and reported dehydration, along with finding hypomagnesemia and UTI during vis it. Patient with multiple different rhythms while being monitored in the ER. 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 Magnesium repleted thru IV. Patient started on rocephin initially for UTI, no hx of recurrent UTI or resistant organisms per granddaughter. Patient carefully rehydrated while being monitored. Patient re-examined multiple times and despite multiple rhythm changes did not become hypotensive. She did have 2 sinus pauses witnessed by nursing staff with near syncope. She denied pain. CAse discussed with cardiology and then with hospitalist. An order was placed for continuous cardiac monitoring. The monitor shows a rate of _136__ with _sinus tachycardia_ rhythm. Impression & Plan Dizziness, Dysrhythmia, Hypomagnesemia, Acute dehydration, Acute UTI (urinary tract infection) Discharge Plan Visit Data Chief Complaint: Dizziness Stated Complaint: TACHYCARDIA ED Provider: Darcie Heck Discharge Problem: Dizziness, Dysrhythmia, Hypomagnesemia, Acute dehydration, Acute UTI (urinary tract infection) Patient Disposition: Admitted As Inpatient Discharge Instructions Interventions: ED Discharge Assessment Last Done: 02/11/22 05:59 Discharge Problem: Dysrhythmia Qualifiers: Arrhythmia type: unspecified cardiac arrhythmia Qualified Code(s): I49.9 - Cardiac arrhythmia, unspecified
--- NOTE | 2022-02-10 19:19 | XRay Report ---
SINGLE VIEW CHEST CLINICAL HISTORY: Palpitations. FINDINGS: An AP, portable, upright chest radiograph is compared to chest x-ray and chest CT dated 10/14. The heart is enlarged noting atherosclerotic calcification of the thoracic aorta. The pulmonar y vasculature is noncongested. Calcification containing hilar adenopathy is similar to previous. Foci of parenchyma scarring are seen throughout both lungs. There is no airspace consolidation typical fo r pneumonia. Pleural thickening at the left lung base is similar to previous. No large pleural effusi on is seen. Calcification with a masslike opacities in the midlungs are similar to previous. No pneum othorax is identified. The skeletal structures are osteopenic. The bony thorax is grossly intact. IMPRESSION: 1. Cardiomegaly without radiographic evidence of congestive failure. 2. Chronic parenchymal changes as above with no acute cardiopulmonary abnormality identified. ACT 112: Negative or not required by law. Electronically signed by: Deepak Mckeon M.D. 02/10/2022 7:18 PM
[2022-02-10] MEDS ORDERED: METOPROLOL TARTRATE 1 MG/ML VIAL IV STA (19:29)
[2022-02-10 19:32] LABS: Albumin Globulin Ratio 1.1 (0.9-2); Albumin Level 3.7 gm/dl (3.4-5.0); BUN Creatinine Ratio 15.6 (10-20); Bilirubin,Total 0.4 mg/dl (0.2-1.0); Calcium 9.3 mg/dl (8.5-10.1); Creatinine Clr Calc Pharmacy 23.5 ml/min; Est GFR (African American) 44.5 ml/min; Est GFR (Non-African American) 38.4 ml/min; Globulin 3.5 gm/dl (2.5-4.0); Magnesium 1.5 mg/dl (1.7-2.4); Total Protein 7.2 gm/dl (6.0-8.3)
[2022-02-10 19:35] LABS: Troponin I High Sensitivity 56.8 pg/ml (0-14)
[2022-02-10] MEDS ORDERED: LORazepam 2 MG/1 ML VIAL IV STA (20:02)
[2022-02-10] MEDS ORDERED: GLUCAGON FOR INJ 1 MG VIAL ONE (20:21)
[2022-02-10] MEDS: MAGNESIUM SULFATE / D5W 1 GM/100 ML BAG IV SCH ×3 (20:25→23:21)
[2022-02-10] MEDS: SODIUM CHLORIDE 0.9% 1000ML 1,000 ML IV SCH (20:30)
[2022-02-10 21:18] LABS: Potassium 3.9 mmol/L (3.5-5.1)
[2022-02-10] MEDS ORDERED: ACETAMINOPHEN 1,000 MG/100 ML VIAL IV STA (21:38)
[2022-02-10] MEDS ORDERED: DICLOFENAC SOD 1% GEL 100 GM TUBE EXT STA (21:38)
[2022-02-10 21:46] LABS: Appearance Urine Clear (Clear); Bacteria Urine Automated 4+ (Negative); Bilirubin Urine Negative (Negative); Blood Urine Negative (Negative); Color Urine Yellow; Epithelial Cell Urine Auto >30 /lpf (0-5); Glucose Urine UA Negative (Negative); Ketones Urine Negative (Negative); Leukocyte Esterase Urine 1+ (Negative); Nitrite Urine Positive (Negative); Protein Urine Negative (Negative); RBC Urine Automated 0-4 /hpf (0-4); Urobilinogen Urine Negative (Negative)
[2022-02-10] MEDS ORDERED: cefTRIAXone SODIUM 1,000 MG/50 ML BAG IV STA (22:00)
[2022-02-10 22:40] LABS: Lyme Ab IgG w/WB Rflx Negative (Negative); Lyme Ab IgM w/WB Rflx Negative (Negative)
[2022-02-10] MEDS ORDERED: POTASSIUM CHLORIDE / WTR 10 MEQ/100 ML PLCT IV ONE (22:46)
--- NOTE | 2022-02-10 22:51 | History & Physical Report ---
Date of Service February 10, 2022 Assessment & Plan (1) Tachy-eliseo syndrome: Plan: This is an 86-year-old female with a history of paroxysmal atrial fibrillation, PE, GERD, hypertension, depression, anxiety, hypothyroidism who presented to [facility] for evaluation of dizziness and palpitations, subsequently found to have evidence of spontaneous conversion between supraventricular tachyarrhythmia and bradyarrhythmia -- concerning for sick sinus syndrome/tachy eliseo syndrome. 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 -- frequent and multiple observed fluctuations between what appears to be juncti onal and sinus bradyarrhythmia with ventricular rates in the 30-40s with SVT in the range of 130-150; thankfully, she remains largely asymptomatic and BP has remained stable -- s/p metoprolol dose in ER with subsequent reversal with glucagon given spontaneous conversion to bradyarrhythmia -- ER physician spoke w/ on-call payroll associate to discuss case: anticipate pacer placement tomorrow -- maintain pads on chest; patient OK with pacing if needed should vitals become unstable/symptoms deteriorate ; OK with temporary pacer during initial discussion --> if rates lowering w/ evidence of instability, can consider dopamine in ICU and if high, possibly amiodarone -- Patient is DNR/DNI and does NOT want defibrillation should this devolve into a malignant rhythm (VT/VFib) -- PCU monitoring in ICU overflow -- ECG as needed -- correct Mg, K now -- maintain Mg>2 and K>4 -- trend troponin -- consult EP/cardiology: Dr. Montemayor; appreciate technical expertise on this issue and candidacy for pacemaker -- start heparin low dose, no bolus given frequent conversion and risk of prompting VTE --> hold home Eliquis -- NPO now and continue mIVF at 125cc/hr for now (2) JESS (acute kidney injury): Plan: -- relative JESS of BUN 20 / Cr 1.28 on arrival (previously 6/0.84 on 10/2021) -- Gentle hydration as tolerated -- Consider urine studies if worsening (3) Urinary tract infection: Plan: Possible UTI -- patient is somewhat difficult historian in terms of recalling symptoms of urinary issues -- in setting of suspected tachy/eliseo syndrome, do wonder if UTI could be contributing. Opt to treat now and de-escalate later as more information is col lected -- Previous cultures reveal Enterococcus as causative organism, lezama-sensitive -- CFTX 1g q24 and ampicillin 1g q4h -- Await cultures (4) Paroxysmal atrial fibrillation: Plan: -- History noted. Hold metoprolol, Eliquis in setting of above issues -- Heparin ongoing (5) History of pulmonary embolism: Plan: -- According to patient, this happened many years ago -- On Eliquis as outpatient for AFib; holding for now, as above -- Heparin ongoing (6) GERD (gastroesophageal reflux disease): Plan: -- Continue pantoprazole (7) Colostomy in place: Plan: -- Performed many years ago for severe fecal incontinence per previous notes -- Note that patient was admitted in October with SBO, though to be secondary to multiple abdominal surgery-driven adhesions (appendectomy, CCY, colectomy, hysterectomy, ventral hernia repair) (8) HTN (hypertension): Plan: -- Hold metoprolol in setting of bradyarrhythmia -- Hold amlodipine for now - given risk for possible decompensation, believes risks<benefits to allow HTN ride a little higher at this time -- Resume agents when appropriate (9) Depression: Plan: -- See below (10) Anxiety: Plan: -- Hold Ativan in setting of current issues -- Should consider discussion of SSRIs/SNRIs when appropriate given risks of BZDs in elderly (11) Hypothyroid: Plan: -- Synthroid, TSH normal on arrival Plan: code: DNR/DNI ppx: heparin gtt ongoing dispo: PCU diet: npo History of Present Illness Primary Care Provider: Twila Denton MD This is an 86-year-old female with a history of paroxysmal atrial fibrillation, PE, GERD, hypertension, depression, anxiety, hypothyroidism who presented to [facility] for evaluation of dizziness and palpitations. She is accompanied by her granddaughter and her granddaughter's . She has been feeling the symptoms all day. She describes a quivering sensation in her chest that was beating quite fast. She denies pain or shortness of breath with this. Does endorse a mild pain in her neck. Otherwise, no changes in medications; no missed doses, no recent additions. Reflecting on the last several days, she denies any obvious urinary tract infection-like symptoms; but admits to being tired and not sure at this time. Medications reviewed and include amlodipine 10, Eliquis 2.5 twice daily, levothyroxine 25 mcg, lorazepam 1 mg 3 times daily, metoprolol 25 mg twice daily, oxybutynin 10 mg nightly, pantoprazole 40 mg daily, potassium chloride 16 mEq each morning, promethazine 25 mg every 4. Last TTE 10/2021 demonstrating small left ventricular size with hyperdynamic function, EF over 70% without wall motion abnormalities. Sclerotic aortic valve without stenosis. Moderate pulmonary hypertension. In the ED, initial vital signs revealed heart rate 152, blood pressure 117/86, respiratory rate 16, saturating fine on room air. CBC largely unremarkable. BMP revealing of potassium 3.9, BUN 20/creatinine 1.28, magnesium 1.5, high- sensitivity troponin 56.8, TSH 3.6. Urinalysis did demonstrate nitrites, leuk esterase, 10-30 WBCs, 4+ urine bacteria in the setting of over 30 epithelial cells. Lyme negative. Chest x-ray not demonstrating any parenchymal changes; no evidence of disease in the chest. CT Head without acute pathology. Her ECG and telemetry demonstrate flipped phases of supraventricular tachycardia with rates in the 130-150 range and spontaneous conversions to sinus bradycardia vs. junctional rhythm in the 30-40s. Her BPs continue to stay in the 160/100 range upon admission to ER. Allergies Allergy/AdvReac Type Severity Reaction Status Date / Time verapamil Allergy Severe "THINGS Verified 02/10/22 18:45 STARTED TO SHUT DOWN-HEART, B/P TILL GOT TO ER". aspirin AdvReac Unknown GI UPSET, Verified 02/10/22 18:45 TAKES BABY ASA WITHOUT PROB Home Medications Medication Instructions Recorded Confirmed Type levothyroxine 25 mcg tablet 25 mcg PO QAM 07/03/18 02/10/22 History lorazepam 1 mg tablet 1 mg PO TID 07/03/18 02/10/22 History pantoprazole 20 mg tablet,delayed 40 mg PO QAM 07/03/18 02/10/22 History release (Protonix) promethazine 25 mg tablet 25 mg PO Q4H PRN 07/03/18 02/10/22 History ndjzqjrvpk-nantnmarbseog-kdixlidc 1 tab PO Q4H PRN 12/07/20 02/10/22 History 50 mg-325 mg-40 mg tablet potassium chloride 8 mEq 16 meq PO QAM 12/07/20 02/10/22 History tablet,extended release oxybutynin chloride 10 mg 10 mg PO HS 10/15/21 02/10/22 History tablet,extended release 24 hr amlodipine 5 mg tablet (Norvasc) 10 mg PO QAM 30 Days #60 tab 10/20/21 02/10/22 Rx apixaban 2.5 mg tablet (Eliquis) 2.5 mg PO BID 30 Days #60 tab 10/20/21 02/10/22 Rx metoprolol tartrate 25 mg tablet 25 mg PO BID 30 Days #60 tab 10/20/21 02/10/22 Rx Past Med/Surg History Medical History Abdominal pain, epigastric Anxiety Chronic back pain PAIN TO BOTH LEGS Chronic nausea Colostomy in place Depression GERD (gastroesophageal reflux disease) History of palpitations "skips beats" Hypertension Leukocytosis Lung nodules previously biopsied - benign Migraine Osteoarthritis Paroxysmal atrial fibrillation Partial small bowel obstruction Poor historian Pulmonary embolism 4-5 years ago - asymptomatic - incidental finding - treated w/ blood thinners x 6 months, cause? Trouble swallowing CERTAIN FOODS WILL STICK WHEN SWALLOWING Weight loss 30+ lb weight loss in lst 6 months Surgical History History of bronchoscopy History of colonoscopy History of colostomy 10 -12years - placed b/c of incontinence (cause??) History of esophagogastroduodenoscopy (EGD) w/ dilatation History of hernia repair History of Lloyd fundoplication History of surgery left elbow Hx of bladder repair surgery FOR SUPPORT Hx of cholecystectomy Hx of thyroidectomy PARTIAL Hx of tonsillectomy Nausea and vomiting after administration of anesthetic agent S/P ANKIT-BSO HX Family History Mother Hypertension Cancer Father Cancer Other No family history of adverse response to anesthesia No family history of bleeding disorder Social History Smoking Status: Never smoker Second Hand Exposure: No; Hx Alcohol Use: Yes Alcohol type: wine Hx Substance Use: No Preferred Language: Mosotho Communication Ability: Effective Rn Cardiac Required: No Beliefs That Will Affect Care: None Current Living Situation: Alone Feels Safe at Home: Yes Safety Concerns: Feels Safe At This Time Review of Systems Review of Systems: as per HPI Physical Exam Physical Exam: General: 86yoF who appears tired, but is otherwise not in acute distress. Fully alert and oriented throughout our discussion. HEENT: NCAT. - Eyes - Sclera are white, anicteric, and without injection. PERRL. - Mouth - MMM with no tonsillar edema or exudates. - Neck - no appreciable JVD Cardiac: Tachycardic with regular rhythm; S1 and S2 present with grade 1/6 systolic murmur heard along the left sternal border Pulmonary: Good respiratory effort with symmetric expansion of the chest. No use of accessory muscles. Lungs were clear to auscultation bilaterally with no c rackles or wheezes. Abdominal: Normoactive bowel sounds. Abdomen was soft, nondistended, and non- tender to palpation. No suprapubic tenderness. Extremities: Upper and lower extremities are warm and well perfused. No peripheral edema. Neuro: CN2-12 grossly in-tact. Upper, lower extremity strength is 5/5 on my assessment. Results & Data Results & Data ([facility]) Vital Signs (Past 12 Hours) Vital Signs Temp Pulse Pulse Resp BP BP Pulse Ox 02/10/22 22:13 51 L 24 96 02/10/22 22:12 50 L 17 97 02/10/22 22:11 53 L 23 97 02/10/22 22:10 46 L 23 97 02/10/22 22:09 35 L 20 95 02/10/22 22:08 52 L 23 96 02/10/22 22:07 54 L 15 95 02/10/22 22:06 46 L 16 97 02/10/22 22:05 44 L 21 97 02/10/22 22:04 53 L 17 96 02/10/22 22:03 48 L 17 96 02/10/22 22:01 55 L 22 92 02/10/22 22:00 95 02/10/22 21:59 50 L 17 94 02/10/22 21:58 49 L 21 97 02/10/22 21:57 48 L 13 96 02/10/22 21:56 61 11 L 94 02/10/22 21:55 63 16 95 02/10/22 21:54 78 18 97 02/10/22 21:53 77 98 02/10/22 21:52 55 L 20 97 02/10/22 21:51 135 H 24 98 02/10/22 21:50 135 H 21 98 02/10/22 21:49 136 H 22 97 02/10/22 21:48 136 H 23 97 02/10/22 21:47 136 H 23 97 02/10/22 21:46 137 H 31 H 98 02/10/22 21:45 136 H 24 97 02/10/22 21:44 137 H 19 97 02/10/22 21:43 137 H 16 97 02/10/22 21:42 136 H 26 H 97 02/10/22 21:41 138 H 20 96 02/10/22 21:40 137 H 20 96 02/10/22 21:38 136 H 18 97 02/10/22 21:37 136 H 22 96 02/10/22 21:36 137 H 17 95 02/10/22 21:35 138 H 18 96 02/10/22 21:34 95 H 18 97 02/10/22 21:33 43 L 20 97 02/10/22 21:32 41 L 18 98 02/10/22 21:30 43 L 19 98 02/10/22 21:29 49 L 13 98 02/10/22 21:28 40 L 14 98 02/10/22 21:27 42 L 17 98 02/10/22 21:26 41 L 12 98 02/10/22 21:25 47 L 13 98 02/10/22 21:24 44 L 18 98 02/10/22 21:23 44 L 22 98 02/10/22 21:22 44 L 18 98 02/10/22 21:21 49 L 19 98 02/10/22 21:14 21 98 02/10/22 21:13 42 L 20 97 02/10/22 21:12 44 L 27 H 98 02/10/22 21:11 18 97 02/10/22 21:10 20 98 02/10/22 21:09 46 L 19 99 02/10/22 21:08 43 L 19 99 02/10/22 21:07 61 24 98 02/10/22 21:06 52 L 23 98 02/10/22 21:05 24 99 02/10/22 21:04 85 15 97 02/10/22 21:03 14 99 02/10/22 21:02 47 L 20 98 02/10/22 21:00 61 17 96 02/10/22 20:59 51 L 20 96 02/10/22 20:58 54 L 22 97 02/10/22 20:57 53 L 14 96 02/10/22 20:56 60 17 96 02/10/22 20:55 61 23 95 02/10/22 20:54 56 L 14 95 02/10/22 20:53 72 23 96 02/10/22 20:52 57 L 18 97 02/10/22 20:50 105 H 31 H 97 02/10/22 20:49 24 94 02/10/22 20:48 61 27 H 96 02/10/22 20:47 62 16 78 L 02/10/22 20:46 66 19 82 L 02/10/22 20:45 70 18 81 L 02/10/22 20:44 87 14 83 L 02/10/22 20:43 97 H 22 88 L 02/10/22 20:42 80 21 97 02/10/22 20:41 92 H 17 91 02/10/22 20:40 23 81 L 02/10/22 20:39 65 16 87 L 02/10/22 20:38 86 17 95 02/10/22 20:37 83 27 H 96 02/10/22 20:36 22 95 02/10/22 20:35 65 19 96 02/10/22 20:34 22 97 02/10/22 20:33 73 17 97 02/10/22 20:32 71 18 98 02/10/22 20:31 75 24 92 02/10/22 20:30 81 24 02/10/22 20:29 72 22 02/10/22 20:28 115 H 24 02/10/22 20:27 60 12 99 02/10/22 20:26 46 L 18 99 02/10/22 20:25 39 L 12 98 02/10/22 20:24 41 L 18 98 02/10/22 20:23 41 L 13 98 02/10/22 20:22 45 L 18 98 02/10/22 20:21 59 L 16 98 02/10/22 20:20 37 L 19 98 02/10/22 20:19 51 L 13 98 02/10/22 20:18 62 19 98 02/10/22 20:17 45 L 17 98 02/10/22 20:16 41 L 20 98 02/10/22 20:15 78 22 98 02/10/22 20:14 50 L 17 98 02/10/22 20:13 62 18 98 02/10/22 20:12 56 L 16 98 02/10/22 20:11 82 20 99 02/10/22 20:10 53 L 19 98 02/10/22 20:09 61 13 97 02/10/22 20:08 54 L 17 96 02/10/22 20:07 53 L 20 97 02/10/22 20:06 64 17 98 02/10/22 20:05 76 20 99 02/10/22 20:03 58 L 17 150/74 H 99 02/10/22 20:01 148 H 17 99 02/10/22 20:00 147 H 14 95 02/10/22 19:59 150 H 18 97 02/10/22 19:58 148 H 27 H 96 02/10/22 19:57 148 H 22 98 02/10/22 19:56 150 H 23 98 02/10/22 19:55 149 H 25 H 02/10/22 19:53 154 H 21 02/10/22 19:40 144 H 17 99 02/10/22 19:39 142 H 13 97 02/10/22 19:38 143 H 26 H 98 02/10/22 19:37 142 H 18 97 02/10/22 19:36 144 H 14 98 02/10/22 19:35 144 H 19 100 02/10/22 19:34 145 H 22 96 02/10/22 19:33 144 H 26 H 97 02/10/22 19:32 144 H 19 97 02/10/22 19:30 145 H 19 163/114 H 99 02/10/22 19:29 145 H 28 H 99 02/10/22 19:28 146 H 36 H 99 02/10/22 19:27 147 H 21 96 02/10/22 19:26 147 H 18 98 02/10/22 19:25 146 H 21 98 02/10/22 19:24 147 H 19 99 02/10/22 19:14 98 05/01/22 18:14 37 C 152 H 16 117/86 98 Supervising Physician Co-Signing Physician Notes Attending addendum: I have physically seen this patient, have supervised the medical residents activities, and agree with the H&P unless as otherwise noted. Assessment and Plan: Tachybradycardia syndrome- Heart rate ranging from 150 down to 30, however, blood pressure is being maintained the entire time. The patient will be admitted to telemetry for serial cardiac enzymes, serial EKG's, cardiac rhythm monitoring and a 2-D echocardiogram with Dopplers. Patient would likely need pacer placed No further inotropes to be given Holding Eliquis and changing to IV heparin LR at 125 mils per hour Cardiology consulted Acute kidney injury - creatinine 1.93, with range 1.27-1.76 Repeat laboratories in a.m. remaining orders and notations as noted
[2022-02-10] MEDS ORDERED: Heparin IV Adult Wt-Based Low-Dose *NO* Bolus Protocol ONE (23:10)
[2022-02-10] MEDS ORDERED: HEPARIN SODIUM/DEXTROSE 25,000 UNITS/500 ML BAG IV SCH (23:15)
[2022-02-11] MEDS: MAGNESIUM SULFATE / D5W 1 GM/100 ML BAG IV SCH ×2 (02:46→06:13)
[2022-02-11] MEDS: SODIUM CHLORIDE 0.9% 1000ML 1,000 ML IV SCH ×2 (03:19→15:20)
[2022-02-11] MEDS ORDERED: AMPICILLIN SOD 1 GM VIAL IV SCH (06:05)
[2022-02-11] MEDS: LEVOTHYROXINE SODIUM 25 MCG TABLET PO SCH (06:24)
[2022-02-11] MEDS ORDERED: PIPERACILL/TAZOBAC CONSULT ACTIVE PRN (06:26)
[2022-02-11] MEDS ORDERED: ACETAMINOPHEN 10MG/ML PEDIATRIC DOSING IV PRN (06:27)
--- NOTE | 2022-02-11 06:43 | Hospitalist Progress Note ---
Date of Service February 11, 2022 Assessment & Plan (1) Tachy-roge syndrome: Plan: 86-year-old female with a history of paroxysmal atrial fibrillation, PE, GERD, hypertension, depression, anxiety, and hypothyroidism who presented for eval of dizziness and palpitations, concerning for tachy roge syndrome. 1. Tachy-Roge Syndrome / Sick Sinus Syndrome / Conduction disease -- frequent and multiple observed fluctuations between what appears to be junctional and sinus bradyarrhythmia with ventricular rates in the 30-40s with SVT in the range of 130-150; mildly symptomatic, including likely associated chest discomfort -- s/p pacemaker placement 02/11/22; will restart beta derian therapy -- Patient is DNR/DNI and does NOT want defibrillation should this devolve into a malignant rhythm (VT/VFib) -- Goal Mg>2 and K>4 (2) Urinary tract infection: Plan: -- abx started in setting of suspected tachy/roge syndrome -- Previous cultures reveal Enterococcus as causative organism, lezama-sensitive -- continue zosyn while awaiting 48 hour urine cultures (3) Paroxysmal atrial fibrillation: Plan: -- restarted beta derian after pacemaker placement (4) History of pulmonary embolism: Plan: -- anticoagulation currently held s/p pacemaker placement 02/11/2022 (5) JESS (acute kidney injury): Plan: -- resolved (6) Colostomy in place: Plan: -- Performed many years ago for severe fecal incontinence (7) HTN (hypertension): Plan: -- Resumed home metoprolol and amlodipine (8) Anxiety: Plan: -- Restarted home ativan 1mg PO TID, chronic regimen (9) Depression: (10) GERD (gastroesophageal reflux disease): Plan: -- Continue pantoprazole (11) Hypothyroid: Plan: -- Continue home regimen, TSH normal on arrival Plan: FEN/GI: heart healthy. IV fluids discontinued ppx: chemoppx held s/p postop code: DNR/DNI dispo: PCU Admission and Anticipated Discharge Date Admission Date: February 10, 2022 Supervising Physician Co-Signing Physician Notes Resident Physician Supervision Note: I independently interviewed and examined the patient and verified the ashley history and physical, reviewed labs and image studies and agree with resident Dr. Parra findings and care plan. Subjective Patient is conversing, but doesn't feel well on and off, especially when her heart rhythm flip between tachy and roge. Granddaughter at bedside. Per nurse, had symptomatic pauses w/ intemittent sensations of feeling faint. Bigeminy on monitor and freq pvcs. Several second pauses. Review of Systems Review of Systems: All systems reviewed & are unremarkable except as noted in HPI & below + intermittent dizziness + 5/10 chest discomfort, new this AM upper back pain, has chronic back pains no blurry vision Physical Exam Physical Exam: General: Grossly A&O. NAD. Cooperative. Conversing. HEENT: Atraumatic, normocephalic. EOMI Pulm: Fine bibsilar insp crackles. No respiratory distress. Cardiac: RRR, -mrg. No LE edema. Abdominal: Nontender, nondistended, soft. Results & Data Results & Data ([facility]) Vital Signs (Past 12 Hours) Temp Pulse Resp BP Pulse Ox 36.5 C 150 H 16 173/132 H 98 02/11/22 11:59 02/11/22 11:29 02/11/22 11:29 02/11/22 11:29 02/11/22 11:29 Resident Activity Tracking Resident Involvement: Resident Care Provided Care Provided: Adult Hospital Medicine
[2022-02-11] MEDS ORDERED: PIPERACILLIN/TAZOBACTAM 3.375 GM in DEXTROSE 5% 100 ML IV ONE (07:00)
--- NOTE | 2022-02-11 07:17 | CT Scan Report ---
HEAD CT NONCONTRAST CT DOSE: 537.48 mGy.cm HISTORY: Altered mental status. TECHNIQUE: Multiaxial CT images of the head were performed without the use of intravenous contrast. A utomated exposure control was utilized for this study. A dose lowering technique was utilized adheri ng to the principles of ALARA. Comparison: Head CT 12/07/2020. Findings: The paranasal sinuses and mastoid air cells are clear. The calvarium and skull base are int act. There is no mass, hematoma, midline shift, acute infarct. White matter hypodensity is nonspecifi c but suggestive of microvascular ischemic change. The ventricles and sulci demonstrate mild age-rela renato involutional changes. Impression: No acute intracranial abnormality. Atrophy and microvascular ischemic changes. ACT 112: Negative or not required by law. Electronically signed by: Yaya Whittington M.D. 02/11/2022 7:15 AM
[2022-02-11 07:36] LABS: Partial Thromboplastin Ratio 1.1; Partial Thromboplastin Time 29.3 Seconds (21.0-31.0)
[2022-02-11 07:41] LABS: Troponin I High Sensitivity 356.4 pg/ml (0-14)
[2022-02-11 07:59] LABS: Anion Gap 14 (3-11); BUN Creatinine Ratio 15.3 (10-20); Blood Urea Nitrogen 13 mg/dl (6-23); Calcium 8.8 mg/dl (8.5-10.1); Carbon Dioxide 22 mmol/L (21-32); Chloride 105 mmol/L (98-107); Creatinine Clr Calc Pharmacy 35.4 ml/min; Est GFR (African American) 72.9 ml/min; Est GFR (Non-African American) 62.9 ml/min; Glucose 135 mg/dl (70-99(Fasting)); Magnesium 2.7 mg/dl (1.7-2.4); Sodium 141 mmol/L (136-145)
[2022-02-11 08:36] LABS: Basophils # (auto) 0.04 K/uL (0-0.2); Basophils % (auto) 0.4 %; Hematocrit (blood only) 44.3 % (37-47); Hemoglobin 14.8 g/dL (12.0-16.0); Immature Granulocytes # (auto) 0.03 K/uL (0.00-0.02); Immature Granulocytes % (auto) 0.3 %; Lymphocytes # (auto) 1.94 K/uL (1.2-3.4); Lymphocytes % (auto) 19.3 %; Mean Corpuscular Hemoglobin 31.8 pg (25-34); Mean Corpuscular Hgb Conc 33.4 g/dL (32-36); Mean Corpuscular Volume 95.3 fL (80-100); Mean Platelet Volume 9.4 fL (7.4-10.4); Monocytes # (auto) 1.12 K/uL (0.11-0.59); Monocytes % (auto) 11.1 %; Neutrophils # (auto) 6.83 K/uL (1.4-6.5); Neutrophils % (auto) 67.9 %; Platelet Count 262 K/uL (130-400); RDW Coefficient of Variation 13.8 % (11.5-14.5); RDW Standard Deviation 47.4 fL (36.4-46.3); Red Blood Count 4.65 M/uL (4.2-5.4); White Blood Count 10.06 K/uL (4.8-10.8)
--- NOTE | 2022-02-11 09:15 | Cardiology Consultation ---
Date of Consultation February 11, 2022 Assessment & Plan (1) Tachy-roge syndrome: (2) SVT (supraventricular tachycardia): (3) Paroxysmal atrial fibrillation: (4) History of pulmonary embolism: 1. Tachybradycardia syndrome: She has periods of rapid heart rate alternating with periods of symptomatic bradycardia and episodes of apparent loss of consciousness due to prolonged sinus node recovery time. This is consistent with severe sinus node dysfunction even now when she is not on AV jabier blocking medications (given last evening where the residual effect should be minimal at this point). Even if we could control her tachycardia either with ablation or medications she will almost certainly have symptomatic bradycardia. I believe we should implant a pacemaker to control her bradycardia. I discussed the indications, procedure, risks and alternatives with her and her granddaughter and they understand and she agrees to proceed. Consent obtained from the granddaughter as the patient preferred that, the patient however seems understand and agrees to proceed. I also discussed sedation with her and she is agreeable and consent was obtained. I am going to hold anticoagulation until after the procedure. 2. SVT: The current arrhythmia is suggestive of a reentrant SVT the way it starts and stops although on twelve-lead electrocardiography I cannot identify clear atrial activity. Once the pacemaker is in we can make a better diagnosis, and I can do a brief electrical study during the procedure to tell whether his AV jabier reentry or some other arrhythmia. This will require treatment, either medications or ablation. 3. Atrial fibrillation: I did review her electrocardiogram from October 17, 2021 and it is more suggestive of atrial flutter with variable AV conduction than atrial fibrillation, and does not appear to be SVT at that time. 4. Remote pulmonary embolism: Her granddaughter tells me that the pulmonary embolism occurred when she had a central line placed on the right, although it would be rare to get a pulmonary embolism from a subclavian vein thrombosis. She has been on long-term anticoagulation so that should be sufficient for both atrial fibrillation and DVT. History of Present Illness Reason for Consultation: Tachycardia, symptomatic bradycardia Attending Physician: Jinny Ramos MD History of Present Illness This is an 86-year-old woman with a history of hypertension, hypothyroidism and remote pulmonary embolism as well as pulmonary hypertension. She presented J anuary 2021 with abdominal discomfort however was noted to have episodes of sinus bradycardia and paroxysmal atrial fibrillation. She did report symptoms of palpitations intermittently at home prior to that. She was discharged on October 20, 2021 with metoprolol tartrate 25 mg twice a day and Eliquis 2.5 mg twice a day. She was seen in follow-up November 07, 2021 and was feeling better without symptoms of recurrent atrial fibrillation. She was continued on Eliquis, metoprolol. She presented to the emergency room on the afternoon of February 10, 2022 with symptoms of intermittent dizziness and palpitations. In the emergency room she had periods of tachycardia and symptomatic bradycardia. I discussed her symptoms with her granddaughter and her this morning in the room, she has been having symptoms of lightheadedness, presyncope and possibly syncope multiple times since her last evaluation. She has also fallen 3 times at home for reasons which are not clear, likely due to periodic bradycardia. She does not seem to be aware of the rapid heart rate. Since presentation on telemetry she has had very frequent episodes of rapid heart rate at around 140 to 150 bpm alternating with significant bradycardia and long sinus pauses as well as periods of ventricular bigeminy. The tachycardia is quite consistent and may be a reentrant SVT, at times she is in a junctional bradycardia. She has symptoms during bradycardia but not tachycardia. Her Eliquis has been held since admission and she has received no beta-blockade since last evening (metoprolol tartrate). Allergies Allergy/AdvReac Type Severity Reaction Status Date / Time verapamil Allergy Severe "THINGS Verified 02/10/22 18:45 STARTED TO SHUT DOWN-HEART, B/P TILL GOT TO ER". aspirin AdvReac Unknown GI UPSET, Verified 02/10/22 18:45 TAKES BABY ASA WITHOUT PROB Home Medications Medication Instructions Recorded Confirmed Type levothyroxine 25 mcg tablet 25 mcg PO QAM 07/03/18 02/10/22 History lorazepam 1 mg tablet 1 mg PO TID 07/03/18 02/10/22 History pantoprazole 20 mg tablet,delayed 40 mg PO QAM 07/03/18 02/10/22 History release (Protonix) promethazine 25 mg tablet 25 mg PO Q4H PRN 07/03/18 02/10/22 History hdoqnnbowr-ylcqqxsmggwud-hyyihdvx 1 tab PO Q4H PRN 12/07/20 02/10/22 History 50 mg-325 mg-40 mg tablet potassium chloride 8 mEq 16 meq PO QAM 12/07/20 02/10/22 History tablet,extended release oxybutynin chloride 10 mg 10 mg PO HS 10/15/21 02/10/22 History tablet,extended release 24 hr amlodipine 5 mg tablet (Norvasc) 10 mg PO QAM 30 Days #60 tab 10/20/21 02/10/22 Rx apixaban 2.5 mg tablet (Eliquis) 2.5 mg PO BID 30 Days #60 tab 10/20/21 02/10/22 Rx metoprolol tartrate 25 mg tablet 25 mg PO BID 30 Days #60 tab 10/20/21 02/10/22 Rx Patient History Medical History Abdominal pain, epigastric Anxiety Chronic back pain PAIN TO BOTH LEGS Chronic nausea Colostomy in place Depression GERD (gastroesophageal reflux disease) History of palpitations "skips beats" Hypertension Leukocytosis Lung nodules previously biopsied - benign Migraine Osteoarthritis Paroxysmal atrial fibrillation Partial small bowel obstruction Poor historian Pulmonary embolism 4-5 years ago - asymptomatic - incidental finding - treated w/ blood thinners x 6 months, cause? Trouble swallowing CERTAIN FOODS WILL STICK WHEN SWALLOWING Weight loss 30+ lb weight loss in lst 6 months Surgical History History of bronchoscopy History of colonoscopy History of colostomy 10 -12years - placed b/c of incontinence (cause??) History of esophagogastroduodenoscopy (EGD) w/ dilatation History of hernia repair History of Lloyd fundoplication History of surgery left elbow Hx of bladder repair surgery FOR SUPPORT Hx of cholecystectomy Hx of thyroidectomy PARTIAL Hx of tonsillectomy Nausea and vomiting after administration of anesthetic agent S/P ANKIT-BSO HX Family History Mother Hypertension Cancer Father Cancer Other No family history of adverse response to anesthesia No family history of bleeding disorder Social History Smoking Status: Never smoker Second Hand Exposure: No; Hx Alcohol Use: Yes Alcohol type: wine Hx Substance Use: No Preferred Language: [place] Communication Ability: Effective Cashier Clerk Required: No Beliefs That Will Affect Care: None Current Living Situation: Alone Feels Safe at Home: Yes Safety Concerns: Feels Safe At This Time Review of Systems Review of Systems: All systems reviewed & are unremarkable except as noted in HPI & below Physical Exam Physical Exam: Constitutional: Alert, cooperative and in no distress. HEENT: Unremarkable Neck: No jugular venous distention, carotid pulses are normal and equal bilaterally without bruits. Pulmonary: Clear to auscultation bilaterally. Cardiac: Regular rapid rhythm with no murmur, gallop or rub. Abdomen: Soft, nontender with normal bowel sounds. Extremities: No edema. Distal pulses intact. Neurologic: No focal findings. Gait was not tested. Skin: No rash, ecchymoses or petechiae. Results & Data ([facility]) Vital Signs (Past 12 Hours) Vital Signs Temp Pulse Pulse Resp BP BP Pulse Ox 02/11/22 05:45 36.7 C 140 H 17 130/104 H 96 02/11/22 05:30 143 H 14 97 02/11/22 05:29 143 H 18 02/11/22 05:28 142 H 35 H 96 02/11/22 05:27 144 H 16 96 02/11/22 05:26 146 H 25 H 96 02/11/22 05:25 144 H 21 96 02/11/22 05:24 145 H 18 95 02/11/22 05:23 142 H 21 96 02/11/22 05:22 143 H 19 96 02/11/22 05:21 144 H 14 95 02/11/22 05:20 139 H 19 96 02/11/22 05:19 140 H 18 94 02/11/22 05:18 145 H 17 95 02/11/22 05:17 132 H 18 95 02/11/22 05:16 58 L 19 89 L 02/11/22 05:15 0 L 19 02/11/22 05:14 144 H 19 97 02/11/22 05:13 145 H 19 96 02/11/22 05:12 54 L 17 96 02/11/22 05:11 52 L 20 96 02/11/22 05:10 0 L 15 96 02/11/22 05:09 137 H 14 96 02/11/22 05:08 137 H 20 96 02/11/22 05:07 137 H 21 97 02/11/22 05:06 137 H 17 96 02/11/22 05:05 137 H 16 98 02/11/22 05:04 135 H 12 96 02/11/22 05:03 138 H 26 H 96 02/11/22 05:02 138 H 30 H 97 02/11/22 05:00 138 H 26 H 95 02/11/22 04:59 136 H 22 96 02/11/22 04:58 136 H 19 97 02/11/22 04:57 135 H 20 96 02/11/22 04:56 135 H 20 97 02/11/22 04:55 137 H 20 97 02/11/22 04:54 135 H 17 97 02/11/22 04:53 135 H 16 96 02/11/22 04:52 133 H 14 96 02/11/22 04:51 133 H 15 96 02/11/22 04:50 133 H 13 95 02/11/22 04:49 133 H 13 96 02/11/22 04:48 132 H 16 95 02/11/22 04:47 133 H 14 96 02/11/22 04:46 132 H 17 95 02/11/22 04:45 133 H 18 95 02/11/22 04:44 132 H 12 96 02/11/22 04:43 130 H 16 96 02/11/22 04:42 136 H 14 95 02/11/22 04:41 50 L 13 95 02/11/22 04:40 58 L 12 95 02/11/22 00:18 136 H 21 97 02/11/22 00:17 137 H 21 95 02/11/22 00:16 137 H 19 96 02/11/22 00:15 137 H 20 96 02/11/22 00:14 136 H 16 97 02/11/22 00:13 137 H 21 96 02/11/22 00:12 136 H 26 H 97 02/11/22 00:11 137 H 23 96 02/11/22 00:10 137 H 22 94 02/11/22 00:09 139 H 21 96 02/11/22 00:08 138 H 21 96 02/11/22 00:07 139 H 16 02/11/22 00:06 140 H 19 02/11/22 00:05 24 02/11/22 00:04 146 H 16 02/11/22 00:03 57 L 15 02/11/22 00:02 63 19 02/11/22 00:01 69 22 02/11/22 00:00 75 16 02/10/22 23:59 59 L 22 02/10/22 23:58 64 21 02/10/22 23:57 61 16 02/10/22 23:56 59 L 16 02/10/22 23:55 58 L 14 02/10/22 23:54 63 18 83 L 02/10/22 23:53 58 L 17 97 02/10/22 23:52 41 L 14 97 02/10/22 23:51 46 L 20 93 02/10/22 23:50 46 L 17 97 02/10/22 23:49 51 L 24 92 02/10/22 23:48 46 L 23 97 02/10/22 23:47 50 L 35 H 97 02/10/22 23:46 40 L 13 95 02/10/22 23:45 46 L 22 97 02/10/22 23:44 48 L 20 97 02/10/22 23:43 51 L 23 96 02/10/22 23:42 46 L 13 86 L 02/10/22 23:41 39 L 17 96 02/10/22 23:40 51 L 20 96 02/10/22 23:39 46 L 15 97 02/10/22 23:38 38 L 20 96 02/10/22 23:37 47 L 14 94 02/10/22 23:36 49 L 23 96 02/10/22 23:35 49 L 24 95 02/10/22 23:34 50 L 23 94 02/10/22 23:33 56 L 22 96 02/10/22 23:32 47 L 19 91 02/10/22 23:31 54 L 25 H 86 L 02/10/22 23:30 61 14 94 02/10/22 23:28 57 L 17 147/98 H 96 02/10/22 23:14 132 H 23 97 02/10/22 23:13 131 H 18 98 02/10/22 23:12 132 H 21 97 02/10/22 23:11 134 H 29 H 98 02/10/22 23:10 131 H 20 97 02/10/22 23:09 130 H 28 H 98 02/10/22 23:07 132 H 21 163/108 H 97 02/10/22 23:06 139 H 16 94 02/10/22 23:05 41 L 16 95 02/10/22 23:04 40 L 14 100 02/10/22 23:03 40 L 20 98 02/10/22 23:02 40 L 16 96 02/10/22 23:00 40 L 18 147/85 H 96 02/10/22 22:59 39 L 13 98 02/10/22 22:58 40 L 19 99 02/10/22 22:57 40 L 12 97 02/10/22 22:56 37 L 14 96 02/10/22 22:55 40 L 15 96 02/10/22 22:54 37 L 13 95 02/10/22 22:53 39 L 14 98 02/10/22 22:52 44 L 18 94 02/10/22 22:51 35 L 17 96 02/10/22 22:50 40 L 17 96 02/10/22 22:49 41 L 12 95 02/10/22 22:48 39 L 13 96 02/10/22 22:47 39 L 19 95 02/10/22 22:46 36 L 19 95 02/10/22 22:45 44 L 15 96 02/10/22 22:44 39 L 19 96 02/10/22 22:43 40 L 16 96 02/10/22 22:42 40 L 18 95 02/10/22 22:41 42 L 16 96 02/10/22 22:40 42 L 23 97 02/10/22 22:38 42 L 17 90 02/10/22 22:37 96 02/10/22 22:24 46 L 15 93 02/10/22 22:23 48 L 23 97 02/10/22 22:22 47 L 14 97 02/10/22 22:21 41 L 17 98 02/10/22 22:20 40 L 16 97 02/10/22 22:19 40 L 14 97 02/10/22 22:18 42 L 15 97 02/10/22 22:17 38 L 13 96 02/10/22 22:16 42 L 16 97 02/10/22 22:15 41 L 13 97 02/10/22 22:14 42 L 16 96 02/10/22 22:13 51 L 24 96 02/10/22 22:12 50 L 17 97 02/10/22 22:11 53 L 23 97 02/10/22 22:10 46 L 23 97 05/01/22 22:09 35 L 20 95 02/10/22 22:08 52 L 23 96 02/10/22 22:07 54 L 15 95 02/10/22 22:06 46 L 16 97 02/10/22 22:05 44 L 21 97 02/10/22 22:04 53 L 17 96 02/10/22 22:03 48 L 17 96 02/10/22 22:01 55 L 22 92 02/10/22 22:00 95 02/10/22 21:59 50 L 17 94 02/10/22 21:58 49 L 21 97 02/10/22 21:57 48 L 13 96 02/10/22 21:56 61 11 L 94 02/10/22 21:55 63 16 95 02/10/22 21:54 78 18 97 02/10/22 21:53 77 98 02/10/22 21:52 55 L 20 97 02/10/22 21:51 135 H 24 98 02/10/22 21:50 135 H 21 98 02/10/22 21:49 136 H 22 97 02/10/22 21:48 136 H 23 97 02/10/22 21:47 136 H 23 97 02/10/22 21:46 137 H 31 H 98 02/10/22 21:45 136 H 24 97 02/10/22 21:44 137 H 19 97 02/10/22 21:43 137 H 16 97 02/10/22 21:42 136 H 26 H 97 02/10/22 21:41 138 H 20 96 02/10/22 21:40 137 H 20 96 02/10/22 21:38 136 H 18 97 02/10/22 21:37 136 H 22 96 02/10/22 21:36 137 H 17 95 02/10/22 21:35 138 H 18 96 02/10/22 21:34 95 H 18 97 02/10/22 21:33 43 L 20 97 02/10/22 21:32 41 L 18 98 02/10/22 21:30 43 L 19 98 02/10/22 21:29 49 L 13 98 02/10/22 21:28 40 L 14 98 02/10/22 21:27 42 L 17 98 02/10/22 21:26 41 L 12 98 05/01/22 21:25 47 L 13 98 02/10/22 21:24 44 L 18 98 02/10/22 21:23 44 L 22 98 02/10/22 21:22 44 L 18 98 02/10/22 21:21 49 L 19 98 02/10/22 21:14 21 98 02/10/22 21:13 42 L 20 97 Laboratory Results Cardiac Enzymes 02/10/22 02/10/22 02/11/22 Range/Units 18:21 20:17 00:46 AST 40 H (13-39) U/L Troponin I High Sens 56.8 H* 437.5 H* D (0-14) pg/ml 02/11/22 Range/Units 06:54 AST (13-39) U/L Troponin I High Sens 356.4 H* (0-14) pg/ml Coagulation 02/11/22 Range/Units 06:54 APTT 29.3 (21.0-31.0) Seconds CBC 02/10/22 02/11/22 Range/Units 18:21 08:10 WBC 9.21 10.06 (4.8-10.8) K/uL RBC 4.82 4.65 (4.2-5.4) M/uL Hgb 15.3 14.8 (12.0-16.0) g/dL Hct 45.9 44.3 (37-47) % Plt Count 273 262 (130-400) K/uL Neut # (Auto) 5.80 6.83 H (1.4-6.5) K/uL Lymph # (Auto) 2.20 1.94 (1.2-3.4) K/uL [place] # (Auto) 0.99 H 1.12 H (0.11-0.59) K/uL Eos # (Auto) 0.17 0.10 (0-0.5) K/uL Baso # (Auto) 0.03 0.04 (0-0.2) K/uL Comprehensive Metabolic Panel 02/10/22 02/10/22 02/11/22 Range/Units 18:21 20:17 06:54 Sodium 139 141 (136-145) mmol/L Potassium 3.9 TNP (3.5-5.1) mmol/L Chloride 104 105 (98-107) mmol/L Carbon Dioxide 23 22 (21-32) mmol/L BUN 20 13 (6-23) mg/dl Creatinine 1.28 H 0.85 D (0.6-1.2) mg/dl Glucose 133 H 135 H (70-99(Fasting)) mg/dl Calcium 9.3 8.8 (8.5-10.1) mg/dl AST 40 H (13-39) U/L ALT 33 (7-52) U/L Alkaline Phosphatase 77 (34-104) U/L Total Protein 7.2 (6.0-8.3) gm/dl Albumin 3.7 (3.4-5.0) gm/dl 02/11/22 Range/Units 08:10 Sodium (136-145) mmol/L Potassium 3.6 (3.5-5.1) mmol/L Chloride (98-107) mmol/L Carbon Dioxide (21-32) mmol/L BUN (6-23) mg/dl Creatinine (0.6-1.2) mg/dl Glucose (70-99(Fasting)) mg/dl Calcium (8.5-10.1) mg/dl AST (13-39) U/L ALT (7-52) U/L Alkaline Phosphatase (34-104) U/L Total Protein (6.0-8.3) gm/dl Albumin (3.4-5.0) gm/dl Intake and Output 02/10/22 02/11/22 02/11/22 22:59 06:59 14:59 Intake Total 645 / 2001.083 1357.083 / 367.733 / 367.733 Balance 645 1357.08 / 367.733 / 367.733 Intake: IV 645 08 1357.083 / 08 367.733 / 367.733 Acetaminophen 1,000 mg In 100 100 / 100 ml @ 400 mls/hr IV NOW STA Rx#: [id number] Acetaminophen 50 ml @ 260 mls/ 50 / 50 hr IV Q4H PRN Rx#:[id number] Heparin Sodium/Dextrose 25,000 102.733 / 102.733 units In 500 ml @ 550 UNITS/HR 11 mls/hr IV .Q24H [facility] Rx#: [id number] Magnesium Sulfate / D5w 1 gm In 100 / 400 300 / 400 100 / 100 100 ml @ 50 mls/hr IV Q2H [facility] Rx#:[id number] Piperacillin/Tazobactam 3.375 115 / 115 gm In Dextrose 5% 100 ml @ 230 mls/hr IV NOW ONE Rx#:[id number] Potassium Chloride / Wtr 10 meq 100 / 100 In 100 ml @ 100 mls/hr IV ONE ONE Rx#:[id number] Sodium Chloride 0.9% 1000ML 1, 500 / 1352.083 852.083 / 1352.083 000 ml @ 125 mls/hr IV .Q8H [facility] Rx#:[id number] cefTRIAXone SODIUM 1,000 mg In 45 / 50 5 / 50 50 ml @ 100 mls/hr IV NOW STA Rx#:[id number] Other: Weight 46.6 kg 46.7 kg Weight Measurement Method [facility] Diagnostic Findings Telemetry: Very frequent episodes of tachycardia with a heart rate in the 140s which is suggestive of an SVT rather than atrial flutter, almost certainly not atrial fibrillation. This is alternating with periods of bradycardia including long pauses with termination of the tachycardia and occasional junctional rhythms with ventricular bigeminy. PG Care Time/CCT Total # of Minutes Spent Total Time Spent with Patient: Total time spent is greater than 50% in coordination of care (as documented) at patient's floor/unit and/or counseling patient: Coding Level of Care Code 21913 Initial Inpt Care Lvl 3 Diagnoses Tachy-roge syndrome I49.5 SVT (supraventricular tachycardia) I47.1 Paroxysmal atrial fibrillation I48.0 History of pulmonary embolism Z86.711
[2022-02-11] MEDS: HEPARIN SOD (PORCINE) 1000 UNIT/ML IV ONE ×2 (09:34→09:54)
[2022-02-11] MEDS: ACETAMINOPHEN 50 ML IV PRN ×2 (09:35→15:54)
[2022-02-11] MEDS: POTASSIUM CHLORIDE / WTR 10 MEQ/100 ML PLCT IV SCH ×2 (09:36→14:16)
--- NOTE | 2022-02-11 10:21 | Billing Data ---
Date of Service February 11, 2022 Coding Level of Care Code 93332 Initial Inpt Care Lvl 3
[2022-02-11] MEDS: LACTATED RINGER'S 1,000 ML IV SCH (11:10)
[2022-02-11] MEDS ORDERED: fentaNYL citrate 100 MCG/2 ML VIAL ONE (11:31)
[2022-02-11] MEDS ORDERED: MIDAZOLAM HCL 1 MG/ML 2ML VIAL ONE (11:31)
[2022-02-11] MEDS ORDERED: ceFAZolin 330 MG/ML 1 GM VIAL ONE (11:31)
[2022-02-11] MEDS ORDERED: BUPIVACAINE 0.25% 30 ML VIAL ONE (11:41)
[2022-02-11] MEDS ORDERED: LIDOCAINE 1% LOCAL 20 ML VIAL ONE (11:41)
[2022-02-11] MEDS ORDERED: WATER, STERILE FOR INJ 10 ML VIAL ONE (11:41)
[2022-02-11] MEDS ORDERED: VANCOMYCIN HCL 1000MG/20ML VIAL ONE (11:42)
--- NOTE | 2022-02-11 11:51 | Pre Anesthesia Assessment ---
Date of Service February 11, 2022 Pre Sedation Assessment Vital Signs Temp Pulse Pulse Resp BP BP Pulse Ox 02/11/22 11:29 150 H 16 173/132 H 98 02/11/22 05:45 36.7 C 140 H 17 130/104 H 96 02/11/22 05:30 143 H 14 97 02/11/22 05:29 143 H 18 95 02/11/22 05:28 142 H 35 H 96 02/11/22 05:27 144 H 16 96 02/11/22 05:26 146 H 25 H 96 02/11/22 05:25 144 H 21 96 02/11/22 05:24 145 H 18 95 02/11/22 05:23 142 H 21 96 02/11/22 05:22 143 H 19 96 02/11/22 05:21 144 H 14 95 02/11/22 05:20 139 H 19 96 02/11/22 05:19 140 H 18 94 02/11/22 05:18 145 H 17 95 02/11/22 05:17 132 H 18 95 02/11/22 05:16 58 L 19 89 L 02/11/22 05:15 0 L 19 96 02/11/22 05:14 144 H 19 97 02/11/22 05:13 145 H 19 96 02/11/22 05:12 54 L 17 96 02/11/22 05:11 52 L 20 96 02/11/22 05:10 0 L 15 96 02/11/22 05:09 137 H 14 96 02/11/22 05:08 137 H 20 96 02/11/22 05:07 137 H 21 97 02/11/22 05:06 137 H 17 96 02/11/22 05:05 137 H 16 98 02/11/22 05:04 135 H 12 96 02/11/22 05:03 138 H 26 H 96 02/11/22 05:02 138 H 30 H 97 02/11/22 05:00 138 H 26 H 95 02/11/22 04:59 136 H 22 96 02/11/22 04:58 136 H 19 97 02/11/22 04:57 135 H 20 96 02/11/22 04:56 135 H 20 97 02/11/22 04:55 137 H 20 97 02/11/22 04:54 135 H 17 97 02/11/22 04:53 135 H 16 96 02/11/22 04:52 133 H 14 96 02/11/22 04:51 133 H 15 96 02/11/22 04:50 133 H 13 95 02/11/22 04:49 133 H 13 96 02/11/22 04:48 132 H 16 95 02/11/22 04:47 133 H 14 96 02/11/22 04:46 132 H 17 95 02/11/22 04:45 133 H 18 95 02/11/22 04:44 132 H 12 96 02/11/22 04:43 130 H 16 96 02/11/22 04:42 136 H 14 95 02/11/22 04:41 50 L 13 95 02/11/22 04:40 58 L 12 95 02/11/22 00:18 136 H 21 97 02/11/22 00:17 137 H 21 95 02/11/22 00:16 137 H 19 96 02/11/22 00:15 137 H 20 96 02/11/22 00:14 136 H 16 97 02/11/22 00:13 137 H 21 96 02/11/22 00:12 136 H 26 H 97 02/11/22 00:11 137 H 23 96 02/11/22 00:10 137 H 22 94 02/11/22 00:09 139 H 21 96 02/11/22 00:08 138 H 21 96 02/11/22 00:07 139 H 16 02/11/22 00:06 140 H 19 02/11/22 00:05 24 02/11/22 00:04 146 H 16 02/11/22 00:03 57 L 15 02/11/22 00:02 63 19 02/11/22 00:01 69 22 02/11/22 00:00 75 16 02/10/22 23:59 59 L 22 02/10/22 23:58 64 21 02/10/22 23:57 61 16 02/10/22 23:56 59 L 16 02/10/22 23:55 58 L 14 02/10/22 23:54 63 18 83 L 02/10/22 23:53 58 L 17 97 02/10/22 23:52 41 L 14 97 02/10/22 23:51 46 L 20 93 02/10/22 23:50 46 L 17 97 02/10/22 23:49 51 L 24 92 02/10/22 23:48 46 L 23 97 02/10/22 23:47 50 L 35 H 97 02/10/22 23:46 40 L 13 95 02/10/22 23:45 46 L 22 97 02/10/22 23:44 48 L 20 97 02/10/22 23:43 51 L 23 96 02/10/22 23:42 46 L 13 86 L 02/10/22 23:41 39 L 17 96 02/10/22 23:40 51 L 20 96 02/10/22 23:39 46 L 15 97 02/10/22 23:38 38 L 20 96 02/10/22 23:37 47 L 14 94 02/10/22 23:36 49 L 23 96 02/10/22 23:35 49 L 24 95 02/10/22 23:34 50 L 23 94 02/10/22 23:33 56 L 22 96 02/10/22 23:32 47 L 19 91 02/10/22 23:31 54 L 25 H 86 L 02/10/22 23:30 61 14 94 02/10/22 23:28 57 L 17 147/98 H 96 02/10/22 23:14 132 H 23 97 02/10/22 23:13 131 H 18 98 02/10/22 23:12 132 H 21 97 02/10/22 23:11 134 H 29 H 98 02/10/22 23:10 131 H 20 97 02/10/22 23:09 130 H 28 H 98 02/10/22 23:07 132 H 21 163/108 H 97 02/10/22 23:06 139 H 16 94 02/10/22 23:05 41 L 16 95 02/10/22 23:04 40 L 14 100 02/10/22 23:03 40 L 20 98 02/10/22 23:02 40 L 16 96 02/10/22 23:00 40 L 18 147/85 H 96 02/10/22 22:59 39 L 13 98 02/10/22 22:58 40 L 19 99 02/10/22 22:57 40 L 12 97 02/10/22 22:56 37 L 14 96 02/10/22 22:55 40 L 15 96 02/10/22 22:54 37 L 13 95 02/10/22 22:53 39 L 14 98 02/10/22 22:52 44 L 18 94 02/10/22 22:51 35 L 17 96 02/10/22 22:50 40 L 17 96 02/10/22 22:49 41 L 12 95 02/10/22 22:48 39 L 13 96 02/10/22 22:47 39 L 19 95 02/10/22 22:46 36 L 19 95 02/10/22 22:45 44 L 15 96 02/10/22 22:44 39 L 19 96 02/10/22 22:43 40 L 16 96 02/10/22 22:42 40 L 18 95 02/10/22 22:41 42 L 16 96 02/10/22 22:40 42 L 23 97 02/10/22 22:38 42 L 17 90 02/10/22 22:37 96 02/10/22 22:24 46 L 15 93 02/10/22 22:23 48 L 23 97 02/10/22 22:22 47 L 14 97 02/10/22 22:21 41 L 17 98 02/10/22 22:20 40 L 16 97 02/10/22 22:19 40 L 14 97 02/10/22 22:18 42 L 15 97 02/10/22 22:17 38 L 13 96 02/10/22 22:16 42 L 16 97 02/10/22 22:15 41 L 13 97 02/10/22 22:14 42 L 16 96 02/10/22 22:13 51 L 24 96 02/10/22 22:12 50 L 17 97 02/10/22 22:11 53 L 23 97 02/10/22 22:10 46 L 23 97 02/10/22 22:09 35 L 20 95 02/10/22 22:08 52 L 23 96 02/10/22 22:07 54 L 15 95 02/10/22 22:06 46 L 16 97 02/10/22 22:05 44 L 21 97 02/10/22 22:04 53 L 17 96 02/10/22 22:03 48 L 17 96 02/10/22 22:01 55 L 22 92 02/10/22 22:00 95 02/10/22 21:59 50 L 17 94 02/10/22 21:58 49 L 21 97 02/10/22 21:57 48 L 13 96 02/10/22 21:56 61 11 L 94 02/10/22 21:55 63 16 95 02/10/22 21:54 78 18 97 02/10/22 21:53 77 98 02/10/22 21:52 55 L 20 97 02/10/22 21:51 135 H 24 98 02/10/22 21:50 135 H 21 98 02/10/22 21:49 136 H 22 97 02/10/22 21:48 136 H 23 97 02/10/22 21:47 136 H 23 97 02/10/22 21:46 137 H 31 H 98 02/10/22 21:45 136 H 24 97 02/10/22 21:44 137 H 19 97 02/10/22 21:43 137 H 16 97 02/10/22 21:42 136 H 26 H 97 02/10/22 21:41 138 H 20 96 02/10/22 21:40 137 H 20 96 02/10/22 21:38 136 H 18 97 02/10/22 21:37 136 H 22 96 02/10/22 21:36 137 H 17 95 02/10/22 21:35 138 H 18 96 02/10/22 21:34 95 H 18 97 02/10/22 21:33 43 L 20 97 02/10/22 21:32 41 L 18 98 02/10/22 21:30 43 L 19 98 02/10/22 21:29 49 L 13 98 02/10/22 21:28 40 L 14 98 02/10/22 21:27 42 L 17 98 02/10/22 21:26 41 L 12 98 02/10/22 21:25 47 L 13 98 02/10/22 21:24 44 L 18 98 02/10/22 21:23 44 L 22 98 02/10/22 21:22 44 L 18 98 02/10/22 21:21 49 L 19 98 02/10/22 21:14 21 98 02/10/22 21:13 42 L 20 97 02/10/22 21:12 44 L 27 H 98 02/10/22 21:11 18 97 02/10/22 21:10 20 98 02/10/22 21:09 46 L 19 99 02/10/22 21:08 43 L 19 99 02/10/22 21:07 61 24 98 05/01/22 21:06 52 L 23 98 02/10/22 21:05 24 99 02/10/22 21:04 85 15 97 02/10/22 21:03 14 99 02/10/22 21:02 47 L 20 98 02/10/22 21:00 61 17 96 02/10/22 20:59 51 L 20 96 02/10/22 20:58 54 L 22 97 02/10/22 20:57 53 L 14 96 02/10/22 20:56 60 17 96 02/10/22 20:55 61 23 95 02/10/22 20:54 56 L 14 95 02/10/22 20:53 72 23 96 02/10/22 20:52 57 L 18 97 02/10/22 20:50 105 H 31 H 97 02/10/22 20:49 24 94 02/10/22 20:48 61 27 H 96 02/10/22 20:47 62 16 78 L 02/10/22 20:46 66 19 82 L 02/10/22 20:45 70 18 81 L 02/10/22 20:44 87 14 83 L 02/10/22 20:43 97 H 22 88 L 02/10/22 20:42 80 21 97 02/10/22 20:41 92 H 17 91 02/10/22 20:40 23 81 L 02/10/22 20:39 65 16 87 L 02/10/22 20:38 86 17 95 02/10/22 20:37 83 27 H 96 02/10/22 20:36 22 95 02/10/22 20:35 65 19 96 02/10/22 20:34 22 97 02/10/22 20:33 73 17 97 02/10/22 20:32 71 18 98 02/10/22 20:31 75 24 92 02/10/22 20:30 81 24 02/10/22 20:29 72 22 02/10/22 20:28 115 H 24 02/10/22 20:27 60 12 99 02/10/22 20:26 46 L 18 99 02/10/22 20:25 39 L 12 98 02/10/22 20:24 41 L 18 98 02/10/22 20:23 41 L 13 98 02/10/22 20:22 45 L 18 98 02/10/22 20:21 59 L 16 98 02/10/22 20:20 37 L 19 98 02/10/22 20:19 51 L 13 98 02/10/22 20:18 62 19 98 02/10/22 20:17 45 L 17 98 02/10/22 20:16 41 L 20 98 02/10/22 20:15 78 22 98 02/10/22 20:14 50 L 17 98 02/10/22 20:13 62 18 98 02/10/22 20:12 56 L 16 98 02/10/22 20:11 82 20 99 02/10/22 20:10 53 L 19 98 02/10/22 20:09 61 13 97 02/10/22 20:08 54 L 17 96 02/10/22 20:07 53 L 20 97 02/10/22 20:06 64 17 98 02/10/22 20:05 76 20 99 02/10/22 20:03 58 L 17 150/74 H 99 02/10/22 20:01 148 H 17 99 02/10/22 20:00 147 H 14 95 02/10/22 19:59 150 H 18 97 02/10/22 19:58 148 H 27 H 96 02/10/22 19:57 148 H 22 98 02/10/22 19:56 150 H 23 98 02/10/22 19:55 149 H 25 H 02/10/22 19:53 154 H 21 02/10/22 19:40 144 H 17 99 02/10/22 19:39 142 H 13 97 02/10/22 19:38 143 H 26 H 98 02/10/22 19:37 142 H 18 97 02/10/22 19:36 144 H 14 98 02/10/22 19:35 144 H 19 100 02/10/22 19:34 145 H 22 96 02/10/22 19:33 144 H 26 H 97 02/10/22 19:32 144 H 19 97 02/10/22 19:30 145 H 19 163/114 H 99 02/10/22 19:29 145 H 28 H 99 02/10/22 19:28 146 H 36 H 99 02/10/22 19:27 147 H 21 96 02/10/22 19:26 147 H 18 98 02/10/22 19:25 146 H 21 98 02/10/22 19:24 147 H 19 99 02/10/22 19:14 98 02/10/22 18:14 37 C 152 H 16 117/86 98 Cardiovascular RRR, no murmur, no edema + tachycardic Respiratory normal respiratory effort, lungs clear to auscultation Pre-Sedation Airway Assessment Smoking Status: Never smoker Short, Thick Neck: No Thyromental Distance: > or= 3.5 Finger Breadths Oral Cavity: + WNL Mallampati Class: IV ASA: ASA3 NPO Status Date of Last Intake of Fluids: 02/10/22 Time of Last Intake of Fluids: 20:00 Date of Last Intake of Solid Food: 02/10/22 Time of Last Intake of Solid Foods: 20:00 Procedure Planning Contraindications for Sedation: none Current Medications Reviewed: Yes Notes The planned sedation has been discussed with the patient. Informed Consent was obtained. I have identified the patient, determined the appropriateness of sedation and have assessed the patient immediately prior to the procedure. All medicine(s) and interventions are by my order.
[2022-02-11] MEDS ORDERED: METOPROLOL TARTRATE 1 MG/ML VIAL IV ONE (12:26)
[2022-02-11] MEDS ORDERED: BACITRACIN OINT 0.9 GM PKT ONE (13:14)
--- NOTE | 2022-02-11 13:26 | Electrophysiology Report ---
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 Dye was injected the left arm IV site to opacify the left subclavian vein. The subclavian vein was identified and found to be free of obstruction. The left prepectoral region was anesthetized with 1% lidocaine local anesthetic and left axillary venipuncture was performed by percutaneous technique and a guidewire placed through the left subclavian vein into the superior vena cava. The area was further infiltrated with 1% lidocaine local anesthetic and a 5 cm incision was made parallel to the left clavicle and 2 cm below it and carried down to the anterior pectoralis fascia. A pacemaker pocket was formed by blunt dissection anterior to the pectoralis fascia and a vancomycin-soaked sponge was placed in the pocket. An 8 [place] [employer] lead introducer was placed over the guidewire into the left subclavian vein, the dilator and guidewire were removed and a bipolar active fixation steroid tipped ventricular lead was advanced through the introducer into the superior vena cava. A guidewire was placed through the introducer and the introducer was stripped from the lead and guidewire. Another 8 [place] Med[employer] lead introducer was placed over the guidewire into the left subclavian vein, the dilator and guidewire were removed and a bipolar active fixation steroid tipped atrial lead was advanced through the introducer into the superior vena cava. A guidewire was placed back through the introducer and the introducer was stripped from the lead and guidewire. Using a curved stylette the ventricular lead was advanced through the right ventricular outflow tract into the pulmonary artery and then using a straight stylette was positioned in the right ventricular apex. The screw was extended fixing the lead in position. Pacing and sensing thresholds were evaluated in bip olar configuration and are recorded on the implant data sheet. Diaphragmatic pacing was evaluated at maximum output as noted on the data sheet. Using a curved stylette the atrial lead was positioned in the region of the atrial appendage and the screw extended fixing the lead in position. Pacing and sensing thresholds were evaluated in bipolar configuration and are recorded on the implant data sheet. Diaphragmatic pacing was evaluated at maximum output as noted on the data sheet. Once the leads were in position they were attached to the anterior pectoralis fascia using 2 sutures of 2-0 silk around each lead collar. The vancomycin soaked sponge was removed from the pocket, hemostasis was obtained, the pacemaker was attached to the leads and placed in the pocket with the leads coiled beneath it. The incision was closed with a running double subcutaneous closure of 3-0 Vicryl absorbable suture, followed by running subcuticular skin closure of 4-0 Vicryl absorbable suture. Bacitracin ointment was placed on the incision and a dressing applied. [facility] Electrophysiology codes Indication for Procedure (1) Tachy-roge syndrome: Pacing Procedure 1: Pacin Insert/Replace Pacer A & V Miscellaneous Procedures Procedure 1: EP Miscellaneous: 64194 Contrast injection for venography Procedure 2: EP Miscellaneous: 49950-36 Vengraphy, extremity PG Moderate Sedation Codes Moderate Sedation Codes Procedure 1: Sedation/Anesthesia: 77588 Mod Sedation by the same physician;Init15 Min Child Age 5 & Up Procedure 2: Sedation/Anesthesia: 96219 Mod Sedation by the same physician; Ea [id number] Minutes
[2022-02-11] MEDS ORDERED: ACETAMINOPHEN W/CODEINE #3 1 TAB PO PRN (13:33)
[2022-02-11] MEDS: PANTOprazole 40 MG TAB PO SCH (14:16)
--- NOTE | 2022-02-11 15:15 | Post Anesthesia Assessment ---
Date of Service February 11, 2022 Post Sedation Assessment Vital Signs Temp Pulse Pulse Resp BP BP Pulse Ox 02/11/22 13:45 60 20 132/92 95 02/11/22 13:30 60 20 142/96 H 96 02/11/22 11:59 36.5 C 02/11/22 11:29 150 H 16 173/132 H 98 02/11/22 08:00 143 H 02/11/22 05:45 36.7 C 140 H 17 130/104 H 96 02/11/22 05:30 143 H 14 97 02/11/22 05:29 143 H 18 95 02/11/22 05:28 142 H 35 H 96 02/11/22 05:27 144 H 16 96 02/11/22 05:26 146 H 25 H 96 02/11/22 05:25 144 H 21 96 02/11/22 05:24 145 H 18 95 02/11/22 05:23 142 H 21 96 02/11/22 05:22 143 H 19 96 02/11/22 05:21 144 H 14 95 02/11/22 05:20 139 H 19 96 02/11/22 05:19 140 H 18 94 02/11/22 05:18 145 H 17 95 02/11/22 05:17 132 H 18 95 02/11/22 05:16 58 L 19 89 L 02/11/22 05:15 0 L 19 96 02/11/22 05:14 144 H 19 97 02/11/22 05:13 145 H 19 96 02/11/22 05:12 54 L 17 96 02/11/22 05:11 52 L 20 96 02/11/22 05:10 0 L 15 96 02/11/22 05:09 137 H 14 96 02/11/22 05:08 137 H 20 96 02/11/22 05:07 137 H 21 97 02/11/22 05:06 137 H 17 96 02/11/22 05:05 137 H 16 98 02/11/22 05:04 135 H 12 96 02/11/22 05:03 138 H 26 H 96 02/11/22 05:02 138 H 30 H 97 02/11/22 05:00 138 H 26 H 95 02/11/22 04:59 136 H 22 96 02/11/22 04:58 136 H 19 97 02/11/22 04:57 135 H 20 96 02/11/22 04:56 135 H 20 97 02/11/22 04:55 137 H 20 97 02/11/22 04:54 135 H 17 97 02/11/22 04:53 135 H 16 96 02/11/22 04:52 133 H 14 96 02/11/22 04:51 133 H 15 96 02/11/22 04:50 133 H 13 95 02/11/22 04:49 133 H 13 96 02/11/22 04:48 132 H 16 95 02/11/22 04:47 133 H 14 96 02/11/22 04:46 132 H 17 95 02/11/22 04:45 133 H 18 95 02/11/22 04:44 132 H 12 96 02/11/22 04:43 130 H 16 96 02/11/22 04:42 136 H 14 95 02/11/22 04:41 50 L 13 95 02/11/22 04:40 58 L 12 95 02/11/22 00:18 136 H 21 97 02/11/22 00:17 137 H 21 95 02/11/22 00:16 137 H 19 96 02/11/22 00:15 137 H 20 96 02/11/22 00:14 136 H 16 97 02/11/22 00:13 137 H 21 96 02/11/22 00:12 136 H 26 H 97 02/11/22 00:11 137 H 23 96 02/11/22 00:10 137 H 22 94 02/11/22 00:09 139 H 21 96 02/11/22 00:08 138 H 21 96 02/11/22 00:07 139 H 16 02/11/22 00:06 140 H 19 02/11/22 00:05 24 02/11/22 00:04 146 H 16 02/11/22 00:03 57 L 15 02/11/22 00:02 63 19 02/11/22 00:01 69 22 02/11/22 00:00 75 16 02/10/22 23:59 59 L 22 02/10/22 23:58 64 21 02/10/22 23:57 61 16 02/10/22 23:56 59 L 16 02/10/22 23:55 58 L 14 02/10/22 23:54 63 18 83 L 02/10/22 23:53 58 L 17 97 02/10/22 23:52 41 L 14 97 02/10/22 23:51 46 L 20 93 02/10/22 23:50 46 L 17 97 02/10/22 23:49 51 L 24 92 02/10/22 23:48 46 L 23 97 02/10/22 23:47 50 L 35 H 97 02/10/22 23:46 40 L 13 95 02/10/22 23:45 46 L 22 97 02/10/22 23:44 48 L 20 97 02/10/22 23:43 51 L 23 96 02/10/22 23:42 46 L 13 86 L 02/10/22 23:41 39 L 17 96 02/10/22 23:40 51 L 20 96 02/10/22 23:39 46 L 15 97 02/10/22 23:38 38 L 20 96 02/10/22 23:37 47 L 14 94 02/10/22 23:36 49 L 23 96 02/10/22 23:35 49 L 24 95 02/10/22 23:34 50 L 23 94 02/10/22 23:33 56 L 22 96 02/10/22 23:32 47 L 19 91 02/10/22 23:31 54 L 25 H 86 L 02/10/22 23:30 61 14 94 02/10/22 23:28 57 L 17 147/98 H 96 02/10/22 23:14 132 H 23 97 02/10/22 23:13 131 H 18 98 02/10/22 23:12 132 H 21 97 02/10/22 23:11 134 H 29 H 98 02/10/22 23:10 131 H 20 97 02/10/22 23:09 130 H 28 H 98 02/10/22 23:07 132 H 21 163/108 H 97 02/10/22 23:06 139 H 16 94 02/10/22 23:05 41 L 16 95 02/10/22 23:04 40 L 14 100 02/10/22 23:03 40 L 20 98 02/10/22 23:02 40 L 16 96 02/10/22 23:00 40 L 18 147/85 H 96 02/10/22 22:59 39 L 13 98 02/10/22 22:58 40 L 19 99 02/10/22 22:57 40 L 12 97 02/10/22 22:56 37 L 14 96 02/10/22 22:55 40 L 15 96 02/10/22 22:54 37 L 13 95 02/10/22 22:53 39 L 14 98 02/10/22 22:52 44 L 18 94 02/10/22 22:51 35 L 17 96 02/10/22 22:50 40 L 17 96 02/10/22 22:49 41 L 12 95 02/10/22 22:48 39 L 13 96 02/10/22 22:47 39 L 19 95 02/10/22 22:46 36 L 19 95 02/10/22 22:45 44 L 15 96 02/10/22 22:44 39 L 19 96 02/10/22 22:43 40 L 16 96 02/10/22 22:42 40 L 18 95 02/10/22 22:41 42 L 16 96 02/10/22 22:40 42 L 23 97 02/10/22 22:38 42 L 17 90 02/10/22 22:37 96 02/10/22 22:24 46 L 15 93 02/10/22 22:23 48 L 23 97 02/10/22 22:22 47 L 14 97 02/10/22 22:21 41 L 17 98 02/10/22 22:20 40 L 16 97 02/10/22 22:19 40 L 14 97 02/10/22 22:18 42 L 15 97 02/10/22 22:17 38 L 13 96 02/10/22 22:16 42 L 16 97 02/10/22 22:15 41 L 13 97 02/10/22 22:14 42 L 16 96 02/10/22 22:13 51 L 24 96 02/10/22 22:12 50 L 17 97 02/10/22 22:11 53 L 23 97 02/10/22 22:10 46 L 23 97 02/10/22 22:09 35 L 20 95 02/10/22 22:08 52 L 23 96 02/10/22 22:07 54 L 15 95 02/10/22 22:06 46 L 16 97 02/10/22 22:05 44 L 21 97 02/10/22 22:04 53 L 17 96 02/10/22 22:03 48 L 17 96 02/10/22 22:01 55 L 22 92 02/10/22 22:00 95 02/10/22 21:59 50 L 17 94 02/10/22 21:58 49 L 21 97 02/10/22 21:57 48 L 13 96 02/10/22 21:56 61 11 L 94 02/10/22 21:55 63 16 95 02/10/22 21:54 78 18 97 02/10/22 21:53 77 98 02/10/22 21:52 55 L 20 97 02/10/22 21:51 135 H 24 98 02/10/22 21:50 135 H 21 98 02/10/22 21:49 136 H 22 97 02/10/22 21:48 136 H 23 97 02/10/22 21:47 136 H 23 97 02/10/22 21:46 137 H 31 H 98 02/10/22 21:45 136 H 24 97 02/10/22 21:44 137 H 19 97 02/10/22 21:43 137 H 16 97 02/10/22 21:42 136 H 26 H 97 02/10/22 21:41 138 H 20 96 02/10/22 21:40 137 H 20 96 02/10/22 21:38 136 H 18 97 02/10/22 21:37 136 H 22 96 02/10/22 21:36 137 H 17 95 02/10/22 21:35 138 H 18 96 02/10/22 21:34 95 H 18 97 02/10/22 21:33 43 L 20 97 02/10/22 21:32 41 L 18 98 02/10/22 21:30 43 L 19 98 02/10/22 21:29 49 L 13 98 02/10/22 21:28 40 L 14 98 02/10/22 21:27 42 L 17 98 02/10/22 21:26 41 L 12 98 02/10/22 21:25 47 L 13 98 02/10/22 21:24 44 L 18 98 02/10/22 21:23 44 L 22 98 02/10/22 21:22 44 L 18 98 02/10/22 21:21 49 L 19 98 02/10/22 21:14 21 98 02/10/22 21:13 42 L 20 97 02/10/22 21:12 44 L 27 H 98 02/10/22 21:11 18 97 02/10/22 21:10 20 98 02/10/22 21:09 46 L 19 99 02/10/22 21:08 43 L 19 99 02/10/22 21:07 61 24 98 02/10/22 21:06 52 L 23 98 02/10/22 21:05 24 99 02/10/22 21:04 85 15 97 02/10/22 21:03 14 99 02/10/22 21:02 47 L 20 98 02/10/22 21:00 61 17 96 02/10/22 20:59 51 L 20 96 02/10/22 20:58 54 L 22 97 02/10/22 20:57 53 L 14 96 02/10/22 20:56 60 17 96 02/10/22 20:55 61 23 95 02/10/22 20:54 56 L 14 95 02/10/22 20:53 72 23 96 02/10/22 20:52 57 L 18 97 02/10/22 20:50 105 H 31 H 97 02/10/22 20:49 24 94 02/10/22 20:48 61 27 H 96 02/10/22 20:47 62 16 78 L 02/10/22 20:46 66 19 82 L 02/10/22 20:45 70 18 81 L 02/10/22 20:44 87 14 83 L 02/10/22 20:43 97 H 22 88 L 02/10/22 20:42 80 21 97 02/10/22 20:41 92 H 17 91 02/10/22 20:40 23 81 L 02/10/22 20:39 65 16 87 L 02/10/22 20:38 86 17 95 02/10/22 20:37 83 27 H 96 02/10/22 20:36 22 95 02/10/22 20:35 65 19 96 02/10/22 20:34 22 97 02/10/22 20:33 73 17 97 02/10/22 20:32 71 18 98 02/10/22 20:31 75 24 92 02/10/22 20:30 81 24 02/10/22 20:29 72 22 02/10/22 20:28 115 H 24 02/10/22 20:27 60 12 99 02/10/22 20:26 46 L 18 99 02/10/22 20:25 39 L 12 98 02/10/22 20:24 41 L 18 98 02/10/22 20:23 41 L 13 98 02/10/22 20:22 45 L 18 98 02/10/22 20:21 59 L 16 98 02/10/22 20:20 37 L 19 98 02/10/22 20:19 51 L 13 98 02/10/22 20:18 62 19 98 02/10/22 20:17 45 L 17 98 02/10/22 20:16 41 L 20 98 02/10/22 20:15 78 22 98 02/10/22 20:14 50 L 17 98 02/10/22 20:13 62 18 98 02/10/22 20:12 56 L 16 98 02/10/22 20:11 82 20 99 02/10/22 20:10 53 L 19 98 02/10/22 20:09 61 13 97 02/10/22 20:08 54 L 17 96 02/10/22 20:07 53 L 20 97 02/10/22 20:06 64 17 98 02/10/22 20:05 76 20 99 02/10/22 20:03 58 L 17 150/74 H 99 02/10/22 20:01 148 H 17 99 02/10/22 20:00 147 H 14 95 02/10/22 19:59 150 H 18 97 02/10/22 19:58 148 H 27 H 96 02/10/22 19:57 148 H 22 98 02/10/22 19:56 150 H 23 98 02/10/22 19:55 149 H 25 H 02/10/22 19:53 154 H 21 02/10/22 19:40 144 H 17 99 02/10/22 19:39 142 H 13 97 02/10/22 19:38 143 H 26 H 98 02/10/22 19:37 142 H 18 97 02/10/22 19:36 144 H 14 98 02/10/22 19:35 144 H 19 100 02/10/22 19:34 145 H 22 96 02/10/22 19:33 144 H 26 H 97 02/10/22 19:32 144 H 19 97 02/10/22 19:30 145 H 19 163/114 H 99 02/10/22 19:29 145 H 28 H 99 02/10/22 19:28 146 H 36 H 99 02/10/22 19:27 147 H 21 96 02/10/22 19:26 147 H 18 98 02/10/22 19:25 146 H 21 98 02/10/22 19:24 147 H 19 99 02/10/22 19:14 98 02/10/22 18:14 37 C 152 H 16 117/86 98 Recovery Score Activity: Moves 4 extremities Respiration: Deep Breath/Cough Circulation: +/-20% PreAnes Value Consciousness: Fully Awake Oxygen Saturation: > 92% On Room Air Post Anesthesia Score: 10 Discharge Sedation Level of Care: Fast Track Phase II Post Sedation Plan On clinical assessment, the patient appears to have tolerated the sedation without complications. Patient is recovering as anticipated. Patient will continue to be monitored by nursing and may be discharged when sedation discharge criteria are met per below protocol. Upon Completions of procedure up to 15 minutes continue every 5 minute vital signs and the P.A.R. score; then discharge to a Phase I or Fast Track to Phase II per the following guidelines: * Discharge Patient to appropriate Phase II area if PAR is 8 or greater or return to pre- procedure baseline. The post - procedure orders will be as directed. * If PAR score is less than 8 or not return to pre-procedure baseline then patient will follow Phase I monitoring till PAR is reached for Phase II. The Phase I may be done in procedure room or may call to secure a Phase I area. * If naloxone or flumazenil are used for reversal, hold in Phase I for continued monitoring from when last reversal dose was given for a minimum of 60 minutes or longer pending the nurse and/or physician discretion of patient condition before discharge to Phase II. Please call the Sedation Physician to re-evaluate and complete post-note for discharge to Phase II area. Do NOT discharge from procedure sedation or Phase 1 until post- sedation evaluation note is complete by procedure /sedation MD Sedation Discharge Instructions to be given to the patient at discharge to home.
[2022-02-11] MEDS: PIPERACILLIN/TAZOBACTAM 3.375 GM in DEXTROSE 5% 100 ML IV SCH ×2 (15:21→23:55)
[2022-02-11] MEDS: LORazepam 1 MG TAB PO SCH ×2 (15:45→20:36)
[2022-02-11] MEDS: METOPROLOL TARTRATE 50 MG TAB PO ONE ×2 (15:47→21:12)
[2022-02-11] MEDS: amLODIPine BESYLATE 5 MG TAB PO SCH (15:54)
[2022-02-11] MEDS ORDERED: LORazepam 1 MG TAB PO SCH (21:00)
[2022-02-11] MEDS ORDERED: cefTRIAXone SODIUM 1,000 MG in DEXTROSE 5% 50 ML IV SCH (22:00)
[2022-02-11] MEDS: ACETAMINOPHEN 325 MG TAB PO PRN (23:54)
[2022-02-12] MEDS ORDERED: KETOROLAC TROMETHAMINE 15 MG/ML VIAL IV ONE (04:00)
[2022-02-12] MEDS: LEVOTHYROXINE SODIUM 25 MCG TABLET PO SCH (05:02)
[2022-02-12] MEDS ORDERED: ceFAZolin 330 MG/ML 1 GM VIAL IV SCH (06:00)
--- NOTE | 2022-02-12 06:40 | Hospitalist Progress Note ---
Date of Service February 12, 2022 Assessment & Plan (1) Tachy-roge syndrome: Plan: 86-year-old female with a history of paroxysmal atrial fibrillation, PE, GERD, hypertension, depression, anxiety, and hypothyroidism who presented for eval of dizziness and palpitations, concerning for tachy roge syndrome. (1) Tachy-roge syndrome: -- frequent and multiple observed fluctuations between what appears to be junctional and sinus bradyarrhythmia with ventricular rates in the 30-40s with SVT in the range of 130-150 -- s/p pacemaker placement 02/11/22; s/p lead revision on 02/12/22 -- Patient is DNR/DNI and does NOT want defibrillation should this devolve into a malignant rhythm (VT/VFib) (2) Atrial fibrillation with rapid ventricular response: -- converted to afib since midnight 02/12/22. rates ~100s-110s -- metoprolol succinate 100mg qam w/ prn IV Lopressor (3) Left-sided chest pain: -- in setting of recent pacemaker placement, r/o'd related etiologies. echo not suggestive of pericarditis. no pericardial effusion. EF 65-70%. moderate tricuspid regurg. cxr w/o pneumothorax -- poor lead placement; s/p revision on 02/12/22 -- trop and ecg reassuring -- No concern of GA (4) Asymptomatic bacteriuria: -- zosyn started in setting of suspected tachy/roge syndrome, since deescalated as suspicion for UTI is lower (5) History of pulmonary embolism: -- anticoagulation currently held s/p pacemaker placement 02/11/2022 (6) JESS (acute kidney injury): -- resolved (7) Hypokalemia: - repleting. 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 IV fluids discontinued ppx: chemoppx held s/p postop code: DNR/DNI dispo: PCU (2) Atrial fibrillation with rapid ventricular response: (3) Left-sided chest pain: (4) Asymptomatic bacteriuria: (5) History of pulmonary embolism: (6) JESS (acute kidney injury): (7) Hypokalemia: (8) Colostomy in place: (9) HTN (hypertension): (10) Anxiety: (11) Depression: (12) GERD (gastroesophageal reflux disease): (13) Hypothyroid: (14) Pacemaker: Admission and Anticipated Discharge Date Admission Date: February 10, 2022 Supervising Physician Co-Signing Physician Notes Resident Physician Supervision Note: I independently interviewed and examined the patient and verified the ashley history and physical, reviewed labs and image studies and agree with resident Dr. Parra findings and care plan. Subjective Patient has had left chest pain, palpitations, and headache since midnight. Per telemetry, her rhythm converted to afib rvr at midnight. The headache is rated as severe and improved w/ toradol, but has returned. Denies other ROS Review of Systems Review of Systems: All systems reviewed & are unremarkable except as noted in HPI & below Physical Exam Physical Exam: General: Grossly A&O. NAD. Cooperative. Conversing. HEENT: Atraumatic, normocephalic. EOMI Pulm: CTAB. No respiratory distress. Cardiac: IIR. No LE edema. Abdominal: Nontender, nondistended, soft. Results & Data Results & Data ([facility]) Vital Signs (Past 12 Hours) Vital Signs Temp Pulse Resp BP Pulse Ox 02/12/22 06:12 36.8 C 95 H 20 150/95 H 96 02/12/22 03:45 36.7 C 101 H 20 149/89 H 96 02/11/22 23:55 103 H 158/98 H 02/11/22 23:36 36.8 C 71 18 189/87 H 95 Resident Activity Tracking Resident Involvement: Resident Care Provided Care Provided: Adult Hospital Medicine
[2022-02-12] MEDS ORDERED: METOPROLOL TARTRATE 1 MG/ML VIAL IV STA ×2 (06:41→07:51)
[2022-02-12] MEDS ORDERED: METOPROLOL TARTRATE 1 MG/ML VIAL IV ONE (06:43)
--- NOTE | 2022-02-12 06:55 | Communication Note ---
Date of Service: February 12, 2022 Informed by nurse around 0610 that patient had converted back into atrial fibrillation. At the time of the initial message, ventricular rates between 90- 110. She reported to her nurse a sensation of "fluttering." She was still interactive, alert, and oriented. I went up to see patient. She appears well perfused and breathing comfortably. Fully A&O. She reports a dull chest pain int he center of her chest. Her breathing feels "tight," but no shortness of breath. Denies other symptoms. BP 150/95, HR 94, SpO2 96% on RA. ECG revealing of atrial fibrillation with rate ~100 without significantly new conduction/repolarization abnormalities otherwise. No consistent pacer spikes observed. Spoke with rate setter on-call, Dr. Zapaat, regarding this situation. Will not place patient on AC at this time given possible risk of hematoma formation around new pacemaker. Will make patient NPO in case of need for possible cardioversion today. Communicated plan of care with primary team. Resident Activity Tracking Resident Involvement: Resident Care Provided Care Provided: Adult Hospital Medicine
[2022-02-12 07:50] LABS: Hematocrit (blood only) 41.9 % (37-47); Mean Corpuscular Hemoglobin 31.5 pg (25-34); Mean Corpuscular Hgb Conc 33.4 g/dL (32-36); Mean Corpuscular Volume 94.4 fL (80-100); Mean Platelet Volume 9.1 fL (7.4-10.4); Platelet Count 233 K/uL (130-400); RDW Coefficient of Variation 13.7 % (11.5-14.5); RDW Standard Deviation 46.8 fL (36.4-46.3); Red Blood Count 4.44 M/uL (4.2-5.4)
[2022-02-12] MEDS: amLODIPine BESYLATE 5 MG TAB PO SCH ×2 (08:21→08:31)
[2022-02-12] MEDS: LORazepam 1 MG TAB PO SCH ×3 (08:21→19:52)
[2022-02-12] MEDS: PANTOprazole 40 MG TAB PO SCH (08:21)
[2022-02-12] MEDS: METOPROLOL SUCC 50MG EXT REL TAB PO SCH (08:21)
[2022-02-12] MEDS: LACTATED RINGER'S 1,000 ML IV SCH (08:31)
[2022-02-12] MEDS: PIPERACILLIN/TAZOBACTAM 3.375 GM in DEXTROSE 5% 100 ML IV SCH (08:37)
[2022-02-12] MEDS: ACETAMINOPHEN 325 MG TAB PO PRN ×3 (08:37→19:52)
--- NOTE | 2022-02-12 08:42 | XRay Report ---
XR chest 2V PA/lateral HISTORY: 86 years-old Female EXACT TIME ORDERED Evaluate for pneumothorax and l status post placemen t of a left subclavian pacer COMPARISON: Chest radiograph 02/10/2022 TECHNIQUE: PA and lateral views of the chest FINDINGS: Cardiac silhouette is mildly enlarged. Chronic perihilar and midlung opacities are noted with possibl e emphysema. Unchanged blunting of the costophrenic angles with hyperinflation. Status post placement of a left subclavian dual lead pacer device. No postprocedural pneumothorax identified. The bones ap pear grossly intact. Lumbar dextroscoliosis. Cholecystectomy. IMPRESSION: Status post placement of a left subclavian pacer. No postprocedural pneumothorax. ACT 112: Negative or not required by law. The above report was generated using voice recognition software. It may contain grammatical, syntax o r spelling errors. Electronically signed by: Faisal Payne M.D. 02/12/2022 8:41 AM
--- NOTE | 2022-02-12 08:48 | Cardiology Progress Note ---
Date of Service February 12, 2022 Assessment & Plan (1) Tachy-roge syndrome: Plan: 1. Postop day #1: The surgical site seems good, she is complaining of chest discomfort which occurred since pacemaker implantation. She does not have a pericardial effusion as a cause of chest discomfort. With poor pacing characteristics I am concerned that she does have perforation and I think we should reposition the lead. I discussed this with the patient and her daughter (via phone) and they are in agreement. I will get consent from the patient. 2. Tachybradycardia syndrome: She has periods of rapid heart rate alternating with periods of symptomatic bradycardia and episodes of apparent loss of consciousness due to prolonged sinus node recovery time. This is consistent with severe sinus node dysfunction even when she is not on AV jabier blocking medications. With a pacemaker in place we will need medications to control her heart rate and the pacemaker will keep her from becoming bradycardic. 3. SVT: The sustained supraventricular arrhythmia identified early this admission is suggestive of a reentrant SVT the way it starts and stops although on twelve-lead electrocardiography I cannot identify clear atrial activity. This was present during surgery and we could document typical AV jabier reentry as a mechanism. This seemed very well suppressed on beta-blockade. 4. Atrial fibrillation: I did review her electrocardiogram from October 17, 2021 and it is more suggestive of atrial flutter with variable AV conduction than atrial fibrillation, however she now clearly has atrial fibrillation. It is possible that is related to the pacemaker implantation, although since she has a history of atrial arrhythmias I suspect it is a recurrence of her prior arrhythmia. She will need anticoagulation long-term. 5. Remote pulmonary embolism: Her granddaughter tells me that the pulmonary embolism occurred when she had a central line placed on the right, although it would be rare to get a pulmonary embolism from a subclavian vein thrombosis. She has been on long-term anticoagulation so that should be sufficient for both atrial fibrillation and DVT. 6. Anticoagulation: I would recommend using her prior Eliquis 2.5 mg twice a day as an anticoagulant over the long run, but I want to hold an anticoagulant for the time being with the possibility of perforation. Admission and Anticipated Discharge Date Admission Date: February 10, 2022 Subjective Her main complaint is left-sided chest discomfort below her left breast, she locates it somewhere to the left lower rib cage or upper left abdomen. It is increased with breathing, it does not seem to be positional but she tells me she cannot take a deep breath with it. This has been present since pacemaker implantation yesterday. She is in atrial fibrillation but is not complaining of palpitations, she is not short of breath. Physical Exam Physical Exam: Constitutional: Alert, cooperative and in mild distress. Pulmonary: Clear to auscultation bilaterally. Cardiac: Irregular rhythm with no murmur, gallop or rub. Abdomen: Soft, with normal bowel sounds. She is tender to palpations in the left upper quadrant or left lower rib cage. Extremities: No edema. Skin: No rash, ecchymoses or petechiae. The pacemaker implant site looks good, there is no bleeding, swelling or erythema. Results & Data ([facility]) Vital Signs (Past 12 Hours) Vital Signs Temp Pulse Pulse Resp BP BP BP 02/12/22 08:21 104 H 163/126 H 02/12/22 08:15 36.9 C 103 H 16 155/86 H 02/12/22 06:47 112 H 02/12/22 06:12 36.8 C 95 H 20 150/95 H 02/12/22 03:45 36.7 C 101 H 20 149/89 H 02/11/22 23:55 103 H 158/98 H 02/11/22 23:36 36.8 C 71 18 189/87 H Pulse Ox 02/12/22 08:21 02/12/22 08:15 96 02/12/22 06:47 02/12/22 06:12 96 02/12/22 03:45 96 02/11/22 23:55 02/11/22 23:36 95 Laboratory Results CBC 02/12/22 Range/Units 07:24 WBC 9.40 (4.8-10.8) K/uL RBC 4.44 (4.2-5.4) M/uL Hgb 14.0 (12.0-16.0) g/dL Hct 41.9 (37-47) % Plt Count 233 (130-400) K/uL Comprehensive Metabolic Panel 02/11/22 Range/Units 08:10 Potassium 3.6 (3.5-5.1) mmol/L Intake and Output 02/11/22 02/12/22 02/12/22 22:59 06:59 14:59 Intake Total 627 / 2209.733 115 / 2209.733 Output Total 350 / 1650 200 / 1650 Balance 277 / 559.733 -85 / 559.733 Intake: IV 527 / 2109.733 115 / 2109.733 Acetaminophen 50 ml @ 260 mls/ 50 / 100 hr IV Q4H PRN Rx#:[id number] Piperacillin/Tazobactam 3.375 115 / 230 115 / 230 gm In Dextrose 5% 100 ml @ 28. 75 mls/hr IV Q8H [facility] Rx#: [id number] Potassium Chloride / Wtr 10 meq 100 / 200 In 100 ml @ 100 mls/hr IV Q1H [facility] Rx#:[id number] Sodium Chloride 0.9% 1000ML 1, 262 / 1262 000 ml @ 125 mls/hr IV .Q8H [facility] Rx#:[id number] Oral 100 / 100 Output: Urine 350 / 1650 200 / 1650 Other: Other Intake Source sips # Unmeasured Voids 1 Weight 46.4 kg Weight Measurement Method Built in [facility] Diagnostic Findings Postop ECG February 11, 2022: Atrial pacing with intact AV conduction although a prolonged AV interval Chest x-ray: Good lead position, no pneumothorax Telemetry: She converted to atrial fibrillation around midnight last night, her heart rate is moderately rapid averaging around 100. Pacemaker evaluation: Atrial characteristics are good, her ventricular pacing and sensing characteristics are poor. PG Care Time/CCT Total # of Minutes Spent Total Time Spent with Patient: Total time spent is greater than 50% in coordination of care (as documented) at patient's floor/unit and/or counseling patient: Coding Level of Care Code 64123 Post Operative Follow-Up Diagnoses Tachy-roge syndrome I49.5 CPT Codes Dual Lead Pacemaker System - 38594 ([id number])
[2022-02-12] MEDS ORDERED: ONDANSETRON INJ 2 MG/ML 2 ML VIAL IV PRN (09:07)
[2022-02-12 09:12] LABS: BUN Creatinine Ratio 10.5 (10-20); Calcium 8.6 mg/dl (8.5-10.1); Creatinine Clr Calc Pharmacy 39.6 ml/min; Est GFR (African American) 83.5 ml/min; Magnesium 1.9 mg/dl (1.7-2.4); Potassium 3.3 mmol/L (3.5-5.1)
[2022-02-12] MEDS ORDERED: POTASSIUM CHLORIDE CRTAB 20 MEQ TABCR PO STA (09:22)
[2022-02-12] MEDS ORDERED: VANCOMYCIN HCL 1000MG/20ML VIAL ONE (11:09)
[2022-02-12] MEDS ORDERED: LIDOCAINE 1% LOCAL 20 ML VIAL ONE (11:09)
[2022-02-12] MEDS ORDERED: WATER, STERILE FOR INJ 10 ML VIAL ONE (11:09)
--- NOTE | 2022-02-12 12:03 | Pre Anesthesia Assessment ---
Date of Service February 12, 2022 Pre Sedation Assessment Vital Signs Temp Pulse Pulse Resp BP BP BP 02/12/22 11:20 36.8 C 107 H 18 152/102 H 02/12/22 10:49 99 H 02/12/22 09:07 99 H 141/92 H 02/12/22 08:21 104 H 163/126 H 02/12/22 08:15 36.9 C 103 H 16 155/86 H 02/12/22 06:47 112 H 02/12/22 06:12 36.8 C 95 H 20 150/95 H 02/12/22 03:45 36.7 C 101 H 20 149/89 H 02/11/22 23:55 103 H 158/98 H 02/11/22 23:36 36.8 C 71 18 189/87 H 02/11/22 18:34 36.7 C 60 18 150/77 H 02/11/22 18:00 60 13 167/82 H 02/11/22 17:44 60 15 165/74 H 02/11/22 17:30 61 18 183/88 H 02/11/22 17:01 60 10 L 193/102 H 02/11/22 16:00 60 18 176/106 H 02/11/22 15:30 61 13 204/92 H 02/11/22 15:01 61 21 202/90 H 02/11/22 14:31 60 18 174/100 H 02/11/22 13:45 60 20 132/92 02/11/22 13:30 60 20 142/96 H Pulse Ox 02/12/22 11:20 97 02/12/22 10:49 02/12/22 09:07 02/12/22 08:21 02/12/22 08:15 96 02/12/22 06:47 02/12/22 06:12 96 02/12/22 03:45 96 02/11/22 23:55 02/11/22 23:36 95 02/11/22 18:34 97 02/11/22 18:00 02/11/22 17:44 02/11/22 17:30 02/11/22 17:01 02/11/22 16:00 96 02/11/22 15:30 02/11/22 15:01 97 02/11/22 14:31 02/11/22 13:45 95 02/11/22 13:30 96 Cardiovascular + irregularly irregular Respiratory normal respiratory effort, lungs clear to auscultation Pre-Sedation Airway Assessment Smoking Status: Never smoker Short, Thick Neck: No Thyromental Distance: > or= 3.5 Finger Breadths Oral Cavity: + WNL Mallampati Class: IV ASA: ASA3 NPO Status Date of Last Intake of Fluids: 02/10/22 Time of Last Intake of Fluids: 20:00 Date of Last Intake of Solid Food: 02/10/22 Time of Last Intake of Solid Foods: 20:00 Procedure Planning Contraindications for Sedation: none Current Medications Reviewed: Yes Notes The planned sedation has been discussed with the patient. Informed Consent was obtained. I have identified the patient, determined the appropriateness of sedation and have assessed the patient immediately prior to the procedure. All medicine(s) and interventions are by my order.
[2022-02-12] MEDS ORDERED: ceFAZolin 330 MG/ML 1 GM VIAL ONE (12:11)
[2022-02-12] MEDS ORDERED: fentaNYL citrate 100 MCG/2 ML VIAL ONE (12:11)
[2022-02-12] MEDS ORDERED: MIDAZOLAM HCL 5 MG/ML 1 ML VIAL ONE (12:11)
--- NOTE | 2022-02-12 12:46 | XCELERA ---
[id number]
[2022-02-12] MEDS ORDERED: BACITRACIN OINT 0.9 GM PKT ONE (13:14)
--- NOTE | 2022-02-12 13:30 | Electrophysiology Report ---
Date of Service February 12, 2022 Electrophysiology Procedure Electrophysiology Procedure Report Preoperative diagnosis: Ventricular lead dislodgment Postoperative diagnosis: Same Procedure: Ventricular lead replacement Surgeon: Denys Montemayor MD Estimated blood loss: 5 cc Specimens: Old ventricular lead, return to pbx repairer Complications: None Disposition: Cardiology recovery Procedure details: After obtaining informed consent for the procedure, the patient was brought to the laboratory being NPO after midnight. After identification in the laboratory the patient was prepped and draped in the standard sterile manner for a left-sided lead revision. The left prepectoral re gion was anesthetized with 1% lidocaine local anesthetic and once adequate anesthesia was obtained a 6 cm incision was made through the old implant scar and carried down to the pacemaker generator. The generator was dissected free of tissue and explanted. A vancomycin-soaked sponge was placed in the pocket. The pacemakerwas removed from the ventricular lead, the sewing collar was removed from the pectoralis fashion and a stylette was placed in the ventricular lead. The screw was retracted from the myocardium and the lead was withdrawn into the right atrium. Using curved stylette's the ventricular lead was replaced in various locations in the ventricle however adequate measurements could not be obtained. Ultimately a 7 [place] lead introducer sheath was placed over the lead body after cutting away the connector, the lead was withdrawn through the sheath and a new bipolar steroid tipped ventricular lead was advanced through the introducer into the superior vena cava. Using curved sty lette the lead was advanced through the right ventricular outflow tract into the pulmonary artery and then using a straight stylette was positioned in the ventricle. Several locations were tested and ultimately a good location was identified in the proximal septum. Details of measurements are noted on the data sheet. Once the lead was in position it was attached to the anterior pectoral fascia using 2 sutures of 2-0 silk around the lead collar. The lead was placed in the pacemaker header, the vancomycin soaked sponge was removed from the pocket and the pacemaker was placed back in the pocket with the leads culminates that. The incision was closed with a running double subcutaneous closure of 3-0 Vicryl absorbable suture followed by a running subcuticular skin closure of 4-0 Vicryl absorbable suture. Bacitracin ointment was placed on the incision and a dressing applied. [facility] Electrophysiology codes Indication for Procedure (1) Pacemaker lead malfunction: Pacing Procedure 1: Pacin Reposition Pacer/ICD electrode PG Moderate Sedation Codes Moderate Sedation Codes Procedure 1: Sedation/Anesthesia: 16203 Mod Sedation by the same physician;Init15 Min Child Age 5 & Up Procedure 2: Sedation/Anesthesia: 13775 Mod Sedation by the same physician; Ea [id number] Minutes
--- NOTE | 2022-02-12 15:00 | Post Anesthesia Assessment ---
Date of Service February 12, 2022 Post Sedation Assessment Vital Signs Temp Pulse Pulse Resp BP BP BP 02/12/22 13:36 104 H 15 136/105 H 02/12/22 13:24 87 15 166/111 H 02/12/22 11:20 36.8 C 107 H 18 152/102 H 02/12/22 10:49 99 H 02/12/22 09:07 99 H 141/92 H 02/12/22 08:21 104 H 163/126 H 02/12/22 08:15 36.9 C 103 H 16 155/86 H 02/12/22 06:47 112 H 02/12/22 06:12 36.8 C 95 H 20 150/95 H 02/12/22 03:45 36.7 C 101 H 20 149/89 H 02/11/22 23:55 103 H 158/98 H 02/11/22 23:36 36.8 C 71 18 189/87 H 02/11/22 18:34 36.7 C 60 18 150/77 H 02/11/22 18:00 60 13 167/82 H 02/11/22 17:44 60 15 165/74 H 02/11/22 17:30 61 18 183/88 H 02/11/22 17:01 60 10 L 193/102 H 02/11/22 16:00 60 18 176/106 H 02/11/22 15:30 61 13 204/92 H 02/11/22 15:01 61 21 202/90 H Pulse Ox 02/12/22 13:36 96 02/12/22 13:24 96 02/12/22 11:20 97 02/12/22 10:49 02/12/22 09:07 02/12/22 08:21 02/12/22 08:15 96 02/12/22 06:47 02/12/22 06:12 96 02/12/22 03:45 96 02/11/22 23:55 02/11/22 23:36 95 02/11/22 18:34 97 02/11/22 18:00 02/11/22 17:44 02/11/22 17:30 02/11/22 17:01 02/11/22 16:00 96 02/11/22 15:30 02/11/22 15:01 97 Recovery Score Activity: Moves 4 extremities Respiration: Deep Breath/Cough Circulation: +/-20% PreAnes Value Consciousness: Fully Awake Oxygen Saturation: > 92% On Room Air Post Anesthesia Score: 10 Discharge Sedation Level of Care: Fast Track Phase II Post Sedation Plan On clinical assessment, the patient appears to have tolerated the sedation without complications. Patient is recovering as anticipated. Patient will continue to be monitored by nursing and may be discharged when sedation discharge criteria are met per below protocol. Upon Completions of procedure up to 15 minutes continue every 5 minute vital signs and the P.A.R. score; then discharge to a Phase I or Fast Track to Phase II per the following guidelines: * Discharge Patient to appropriate Phase II area if PAR is 8 or greater or return to pre- procedure baseline. The post - procedure orders will be as directed. * If PAR score is less than 8 or not return to pre-procedure baseline then patient will follow Phase I monitoring till PAR is reached for Phase II. The Phase I may be done in procedure room or may call to secure a Phase I area. * If naloxone or flumazenil are used for reversal, hold in Phase I for continued monitoring from when last reversal dose was given for a minimum of 60 minutes or longer pending the nurse and/or physician discretion of patient condition before discharge to Phase II. Please call the Sedation Physician to re-evaluate and complete post-note for discharge to Phase II area. Do NOT discharge from procedure sedation or Phase 1 until post- sedation evaluation note is complete by procedure /sedation MD Sedation Discharge Instructions to be given to the patient at discharge to home.
[2022-02-12] MEDS: LIDOCAINE 5% 1 PATCH TD SCH (23:53)
[2022-02-13] MEDS: ACETAMINOPHEN 325 MG TAB PO PRN ×2 (01:24→23:18)
[2022-02-13] MEDS ORDERED: traMADol HCL 50 MG TABLET PO STA (04:46)
[2022-02-13] MEDS: LEVOTHYROXINE SODIUM 25 MCG TABLET PO SCH (04:55)
[2022-02-13 06:15] LABS: Hematocrit (blood only) 41.6 % (37-47); Hemoglobin 13.6 g/dL (12.0-16.0); Mean Corpuscular Hemoglobin 31.4 pg (25-34); Mean Corpuscular Hgb Conc 32.7 g/dL (32-36); Mean Corpuscular Volume 96.1 fL (80-100); Mean Platelet Volume 9.3 fL (7.4-10.4); Platelet Count 193 K/uL (130-400); RDW Coefficient of Variation 13.7 % (11.5-14.5); RDW Standard Deviation 47.6 fL (36.4-46.3); Red Blood Count 4.33 M/uL (4.2-5.4); White Blood Count 8.63 K/uL (4.8-10.8)
[2022-02-13 06:34] LABS: Calcium 8.3 mg/dl (8.5-10.1); Creatinine Clr Calc Pharmacy 28.6 ml/min; Est GFR (African American) 56.5 ml/min; Est GFR (Non-African American) 48.7 ml/min; Potassium 3.2 mmol/L (3.5-5.1)
--- NOTE | 2022-02-13 06:55 | Hospitalist Progress Note ---
Date of Service February 13, 2022 Assessment & Plan (1) Tachy-roge syndrome: Plan: 86-year-old female with a history of paroxysmal atrial fibrillation, PE, GERD, hypertension, depression, anxiety, and hypothyroidism who presented for eval of dizziness and palpitations, concerning for tachy roge syndrome, and is s/p pacemaker. (1) Tachy-roge syndrome: -- frequent and multiple observed fluctuations between what appears to be junctional and sinus bradyarrhythmia with ventricular rates in the 30-40s with SVT in the range of 130-150 -- s/p pacemaker placement 02/11/22; s/p lead revision on 02/12/22 -- Patient is DNR/DNI and does NOT want defibrillation should this devolve into a malignant rhythm (VT/VFib) (2) Atrial flutter with rapid ventricular response: -- titrating PO metoprolol. PO metoprolol succinate 150mg qam starting 02/14/22 (3) Left-sided chest pain: -- MSK sec to PPM placement. 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 Holding home amlodipine while titrating metoprolol (10) Anxiety: -- Restarted home ativan 1mg PO TID, chronic regimen (11) Depression: (12) GERD (gastroesophageal reflux disease): -- Continue pantoprazole (13) Hypothyroid: -- Continue home regimen, TSH normal on arrival FEN/GI: heart healthy. anticoag: home eliquis restarted code: DNR/DNI dispo: PCU. PT/OT ordered. L arm precaution: avoid elevation above shoulder for 2 wks. (2) Atrial fibrillation with rapid ventricular response: (3) Left-sided chest pain: (4) Asymptomatic bacteriuria: (5) History of pulmonary embolism: (6) JESS (acute kidney injury): (7) Hypokalemia: (8) Colostomy in place: (9) HTN (hypertension): (10) Anxiety: (11) Depression: (12) GERD (gastroesophageal reflux disease): (13) Hypothyroid: (14) Pacemaker: Admission and Anticipated Discharge Date Admission Date: February 10, 2022 Supervising Physician Co-Signing Physician Notes Resident Physician Supervision Note: I independently interviewed and examined the patient and verified the ashley history and physical, reviewed labs and image studies and agree with resident Dr. Parra findings and care plan. Subjective The left chest pain from yesterday has improved significantly. She has chronic low back pain that affected her sleep last night. She ate breakfast. Denies shortness of breath or other symptoms. She denies palpitations today. Headache from yesterday has improved. Review of Systems Review of Systems: All systems reviewed & are unremarkable except as noted in HPI & below Physical Exam Physical Exam: General: Grossly A&O. NAD. Cooperative. Conversing. HEENT: Atraumatic, normocephalic. EOMI Pulm: CTAB. No respiratory distress. Cardiac: Tachycardic rate, IIR. No LE edema. Abdominal: Nontender, nondistended, soft. Results & Data Results & Data ([facility]) Vital Signs (Past 12 Hours) Vital Signs Temp Pulse Resp BP Pulse Ox 02/13/22 04:32 36.7 C 111 H 16 126/87 96 02/12/22 22:48 36.5 C 99 H 16 134/87 98 02/12/22 19:56 36.7 C 98 H 20 160/124 H 97 Resident Activity Tracking Resident Involvement: Resident Care Provided Care Provided: Adult Hospital Medicine
[2022-02-13] MEDS ORDERED: METOPROLOL TARTRATE 1 MG/ML VIAL IV STA ×2 (07:39→09:34)
[2022-02-13] MEDS: amLODIPine BESYLATE 5 MG TAB PO SCH (08:18)
[2022-02-13] MEDS: PANTOprazole 40 MG TAB PO SCH (08:19)
[2022-02-13] MEDS: METOPROLOL SUCC 50MG EXT REL TAB PO SCH (08:19)
[2022-02-13] MEDS: LORazepam 1 MG TAB PO SCH ×3 (08:20→20:11)
[2022-02-13] MEDS ORDERED: POTASSIUM CHLORIDE CRTAB 20 MEQ TABCR PO STA (08:25)
--- NOTE | 2022-02-13 09:05 | Electrocardiogram Report ---
Test Reason : Blood Pressure : / mmHG Vent. Rate : 151 BPM Atrial Rate : 039 BPM P-R Int : 000 ms QRS Dur : 062 ms QT Int : 290 ms P-R-T Axes : 000 035 202 degrees QTc Int : 459 ms Supraventricular tachycardia Abnormal ECG When compared with ECG of 17-OCT-2021 15:37, Supraventricular tachycardia has replaced Atrial flutter Confirmed by Denys Montemayor ([id number]) on 02/13/2022 9:05:17 AM Referred By: REFERRED SELF Confirmed By:Denys Montemayor
--- NOTE | 2022-02-13 09:10 | Electrocardiogram Report ---
Test Reason : Blood Pressure : / mmHG Vent. Rate : 068 BPM Atrial Rate : 060 BPM P-R Int : 208 ms QRS Dur : 062 ms QT Int : 428 ms P-R-T Axes : 000 064 135 degrees QTc Int : 455 ms Sinus rhythm with marked sinus arrhythmia with frequent Premature ventricular complexes Low voltage QRS T wave abnormality, consider lateral ischemia Abnormal ECG When compared with ECG of 10-FEB-2022 18:14, (unconfirmed) Sinus rhythm has replaced Supraventricular tachycardia Confirmed by Denys Montemayor ([id number]) on 02/13/2022 9:09:46 AM Referred By: REFERRED SELF Confirmed By:Denys Montemayor
[2022-02-13] MEDS: POTASSIUM CHLORIDE / WTR 10 MEQ/100 ML PLCT IV SCH ×2 (09:21→10:16)
[2022-02-13] MEDS: LACTATED RINGER'S 1,000 ML IV SCH (09:21)
--- NOTE | 2022-02-13 09:29 | XRay Report ---
XR chest 2V PA/lateral HISTORY: Left-sided pacemaker placement. COMPARISON: Chest 02/12/2022. FINDINGS: Status post left-sided dual-chamber pacemaker. The left ventricular lead has changed in pos ition compared to the prior study. The leads appear intact. No pneumothorax. The heart is normal in s ize. The lungs are hyperexpanded with apical predominant emphysematous changes. Stable blunting of th e costophrenic sulci. Chronic perihilar midlung densities are again noted. Prior cholecystectomy. IMPRESSION: 1. Interval revision of the left ventricular pacemaker lead. 2. No pneumothorax. ACT 112: Negative or not required by law. Electronically signed by: Yaya Whittington M.D. 02/13/2022 9:27 AM
[2022-02-13] MEDS ORDERED: METOPROLOL SUCC 50MG EXT REL TAB PO STA (10:11)
--- NOTE | 2022-02-13 10:13 | Cardiology Progress Note ---
Date of Service February 13, 2022 Assessment & Plan (1) Pacemaker lead malfunction: Plan: 1. Postop day #1 post lead revision, #2 post pacemaker: The surgical site looks good, no bleeding or swelling. 2. Tachybradycardia syndrome: She had periods of rapid heart rate alternating with periods of symptomatic bradycardia and episodes of apparent loss of consciousness due to prolonged sinus node recovery time. This is consistent with severe sinus node dysfunction even when she is not on AV jabier blocking medications. With a pacemaker in place we will need medications to control her heart rate and the pacemaker will keep her from becoming bradycardic. 3. SVT: The sustained supraventricular arrhythmia identified early this admission is suggestive of a reentrant SVT the way it starts and stops although on twelve-lead electrocardiography I could not identify clear atrial activity. This arrhythmia was present during surgery and we could document typical AV jabier reentry as a mechanism. This seemed very well suppressed on beta-blockade and cannot occur during atrial fibrillation. 4. Atrial fibrillation: I did review her electrocardiogram from October 17, 2021 and it is more suggestive of atrial flutter with variable AV conduction than atrial fibrillation, however she now clearly has atrial fibrillation. It is possible that is related to the pacemaker implantation, although since she has a history of atrial arrhythmias I suspect it is a recurrence of her prior arrhythmia. She will need anticoagulation long-term, it should be safe to start now and I have ordered it. We need better HR control too, I am increasing her metoprolol succinated. I would watch at least until this afternoon to get her HR under control, perhaps until tomorrow. 5. Remote pulmonary embolism: Her granddaughter tells me that the pulmonary embolism occurred when she had a central line placed on the right, although it would be rare to get a pulmonary embolism from a subclavian vein thrombosis. She has been on long-term anticoagulation so that should be sufficient for both atrial fibrillation and DVT. 6. Anticoagulation: I would recommend using her prior Eliquis 2.5 mg twice a day as an anticoagulant over the long run, I have started it today. Admission and Anticipated Discharge Date Admission Date: February 10, 2022 Subjective Feels well today, no chest pain, no palpitations, minimal incisional pain. Physical Exam Physical Exam: Her pacemaker site is clean and dry without erythema or swelling. Cardiac rhythm is irregular with no rub Lungs are clear Results & Data ([facility]) Vital Signs (Past 12 Hours) Vital Signs Temp Pulse Pulse Resp BP BP BP 02/13/22 08:16 128 H 142/92 H 02/13/22 07:45 95 H 02/13/22 07:38 36.4 C L 104 H 18 142/92 H 02/13/22 04:32 36.7 C 111 H 16 126/87 02/12/22 22:48 36.5 C 99 H 16 134/87 Pulse Ox 02/13/22 08:16 02/13/22 07:45 02/13/22 07:38 96 02/13/22 04:32 96 02/12/22 22:48 98 Laboratory Results Cardiac Enzymes 02/12/22 Range/Units 07:24 Troponin I High Sens 159.2 H* D (0-14) pg/ml CBC 02/13/22 Range/Units 05:46 WBC 8.63 (4.8-10.8) K/uL RBC 4.33 (4.2-5.4) M/uL Hgb 13.6 (12.0-16.0) g/dL Hct 41.6 (37-47) % Plt Count 193 (130-400) K/uL Comprehensive Metabolic Panel 02/13/22 Range/Units 05:46 Sodium 138 (136-145) mmol/L Potassium 3.2 L (3.5-5.1) mmol/L Chloride 108 H (98-107) mmol/L Carbon Dioxide 23 (21-32) mmol/L BUN 20 (6-23) mg/dl Creatinine 1.05 (0.6-1.2) mg/dl Glucose 120 H (70-99(Fasting)) mg/dl Calcium 8.3 L (8.5-10.1) mg/dl Intake and Output 02/12/22 02/13/22 02/13/22 22:59 06:59 14:59 Intake Total 300 / 415 Output Total 325 / 327 Balance 299 / 88 -325 / 88 Intake: Oral 300 / 300 Output: Urine 325 / 325 # Bowel Movements 1 / 2 Other: # Unmeasured Voids 1 Weight 46.8 kg Weight Measurement Method Built in [facility] Diagnostic Findings Post op ECG: AF with appropriate pacing CXR: Good lead position, no pneumothorax Echo: Post lead revision no effusion Telemetry: Normal pacer function, remains in atrial fibrillation Pacer evaluation: Excellent function PG Care Time/CCT Total # of Minutes Spent Total Time Spent with Patient: Total time spent is greater than 50% in coordination of care (as documented) at patient's floor/unit and/or counseling patient: Coding Level of Care Code 00970 Post Operative Follow-Up Diagnoses Pacemaker lead malfunction T82.110A CPT Codes Dual Lead Pacemaker System - 08179 ([id number])
[2022-02-13] MEDS: APIXABAN 2.5 MG TAB PO SCH ×2 (10:52→20:07)
--- NOTE | 2022-02-13 13:48 | Electrocardiogram Report ---
Test Reason : Blood Pressure : / mmHG Vent. Rate : 159 BPM Atrial Rate : 159 BPM P-R Int : 130 ms QRS Dur : 072 ms QT Int : 290 ms P-R-T Axes : 038 048 232 degrees QTc Int : 471 ms Supraventricular tachycardia Marked ST abnormality, possible inferior subendocardial injury Abnormal ECG When compared with ECG of 10-FEB-2022 20:09, (unconfirmed) Premature ventricular complexes are no longer Present Vent. rate has increased BY [address] now depressed in Inferior leads ST now depressed in Anterolateral leads T wave inversion now evident in Inferior leads T wave inversion more evident in Anterolateral leads Confirmed by Denys Montemayor ([id number]) on 02/13/2022 1:48:31 PM Referred By: REFERRED SELF Confirmed By:Denys Montemayor
--- NOTE | 2022-02-13 14:41 | Electrocardiogram Report ---
Test Reason : Blood Pressure : / mmHG Vent. Rate : 060 BPM Atrial Rate : 060 BPM P-R Int : 268 ms QRS Dur : 070 ms QT Int : 462 ms P-R-T Axes : 034 037 054 degrees QTc Int : 462 ms Atrial-paced rhythm with prolonged AV conduction Abnormal ECG When compared with ECG of 11-FEB-2022 08:29, (unconfirmed) Electronic atrial pacemaker has replaced Sinus rhythm Vent. rate has decreased BY [address] no longer depressed in Inferior leads ST no longer depressed in Anterolateral leads T wave inversion no longer evident in Inferior leads T wave inversion no longer evident in Anterolateral leads Confirmed by Denys Montemayor ([id number]) on 02/13/2022 2:41:24 PM Referred By: REFERRED SELF Confirmed By:Denys Montemayor
[2022-02-13] MEDS: LIDOCAINE 5% 1 PATCH TD SCH (20:10)
[2022-02-14] MEDS: LEVOTHYROXINE SODIUM 25 MCG TABLET PO SCH (05:57)
--- NOTE | 2022-02-14 06:46 | Discharge Summary ---
Date of Service February 14, 2022 Admission HPI Per Admitting Provider This is an 86-year-old female with a history of paroxysmal atrial fibrillation, PE, GERD, hypertension, depression, anxiety, hypothyroidism who presented to [facility] for evaluation of dizziness and palpitations. She is accompanied by her granddaughter and her granddaughter's . She has been feeling the symptoms all day. She describes a quivering sensation in her chest that was beating quite fast. She denies pain or shortness of breath with this. Does endorse a mild pain in her neck. Otherwise, no changes in medications; no missed doses, no recent additions. Reflecting on the last era days, she denies any obvious urinary tract infection-like symptoms; but admits to being tired and not sure at this time. Medications reviewed and include amlodipine 10, Eliquis 2.5 twice daily, levothyroxine 25 mcg, lorazepam 1 mg 3 times daily, metoprolol 25 mg twice daily, oxybutynin 10 mg nightly, pantoprazole 40 mg daily, potassium chloride 16 mEq each morning, promethazine 25 mg every 4. Last TTE 10/2021 demonstrating small left ventricular size with hyperdynamic function, EF over 70% without wall motion abnormalities. Sclerotic aortic valve without stenosis. Moderate pulmonary hypertension. In the ED, initial vital signs revealed heart rate 152, blood pressure 117/86, respiratory rate 16, saturating fine on room air. CBC largely unremarkable. BMP revealing of potassium 3.9, BUN 20/creatinine 1.28, magnesium 1.5, high- sensitivity troponin 56.8, TSH 3.6. Urinalysis did demonstrate nitrites, leuk esterase, 10-30 WBCs, 4+ urine bacteria in the setting of over 30 epithelial cells. Lyme negative. Chest x-ray not demonstrating any parenchymal changes; no evidence of disease in the chest. CT Head without acute pathology. Her ECG and telemetry demonstrate flipped phases of supraventricular tachycardia with rates in the 130-150 range and spontaneous conversions to sinus bradycardia vs. junctional rhythm in the 30-40s. Her BPs continue to stay in the 160/100 range upon admission to ER Admission Exam Per Admitting Provider Physical Exam: General: 86yoF who appears tired, but is otherwise not in acute distress. Fully alert and oriented throughout our discussion. HEENT: NCAT. - Eyes - Sclera are white, anicteric, an d without injection. PERRL. - Mouth - MMM with no tonsillar edema or exudates. - Neck - no appreciable JVD Cardiac: Tachycardic with regular rhythm; S1 and S2 present with grade 1/6 systolic murmur heard along the left sternal border Pulmonary: Good respiratory effort with symmetric expansion of the chest. No use of accessory muscles. Lungs were clear to auscultation bilaterally with no crackles or wheezes. Abdominal: Normoactive bowel sounds. Abdomen was soft, nondistended, and non- tender to palpation. No suprapubic tenderness. Extremities: Upper and lower extremities are warm and well perfused. No peripheral edema. Neuro: CN2-12 grossly in-tact. Upper, lower extremity strength is 5/5 on my assessment. Principal Diagnosis tachybrady syndrome Discharge Exam General: Grossly A&O. NAD. Cooperative. Conversing. HEENT: Atraumatic, normocephalic. EOMI Pulm: CTAB. No respiratory distress. Cardiac: RRR. No LE edema. Abdominal: Nontender, nondistended, soft. Discharge Data Allergies Allergy/AdvReac Type Severity Reaction Status Date / Time verapamil Allergy Severe "THINGS Verified 02/10/22 18:45 STARTED TO SHUT DOWN-HEART, B/P TILL GOT TO ER". aspirin AdvReac Unknown GI UPSET, Verified 02/10/22 18:45 TAKES BABY ASA WITHOUT PROB Consultations 02/10/22 22:30 ED Decision to Admit Stat 02/10/22 23:34 Consult Cardiology Routine Procedures Performed Operation Date: 02/11/22 11:00 Actual Procedures p Pacer with A/V Leads (Dual) - Denys Montemayor MD s Venogram, Unilateral - Denys Montemayor MD Operation Date: 02/12/22 12:00 Actual Procedures p Insertion Single Lead Only - Denys Montemayor MD Ordered Studies CBC 02/14/22 Range/Units 07:45 WBC 9.94 (4.8-10.8) K/uL RBC 4.05 L (4.2-5.4) M/uL Hgb 12.9 (12.0-16.0) g/dL Hct 39.7 (37-47) % Plt Count 174 (130-400) K/uL Comprehensive Metabolic Panel 02/14/22 Range/Units 07:45 Sodium 138 (136-145) mmol/L Potassium 4.0 D (3.5-5.1) mmol/L Chloride 108 H (98-107) mmol/L Carbon Dioxide 21 (21-32) mmol/L BUN 24 H (6-23) mg/dl Creatinine 0.86 (0.6-1.2) mg/dl Glucose 106 H (70-99(Fasting)) mg/dl Calcium 8.6 (8.5-10.1) mg/dl Intake and Output 02/14/22 02/14/22 02/14/22 06:59 14:59 22:59 Output Total 101 / 151 Balance -101 / 437.334 Output: Urine 100 / 150 # Bowel Movements Other: # Unmeasured Voids 1 Weight 47 kg 47 kg Weight Measurement Method Built in [employer] Patient Weight 02/15/22 06:59 Weight 47 kg Chest X-Ray 02/10/22 18:38 SINGLE VIEW CHEST CLINICAL HISTORY: Palpitations. FINDINGS: An AP, portable, upright chest radiograph is compared to chest x-ray and chest CT dated 10/14/2021. The heart is enlarged noting atherosclerotic calcification of the thoracic aorta. The pulmonary vasculature is noncongested. Calcification containing hilar adenopathy is similar to previous. Foci of parenchyma scarring are seen throughout both lungs. There is no airspace consolidation typical for pneumonia. Pleural thickening at the left lung base is similar to previous. No large pleural effusion is seen. Calcification with a masslike opacities in the midlungs are similar to previous. No pneumothorax is identified. The skeletal structures are osteopenic. The bony thorax is grossly intact. IMPRESSION: 1. Cardiomegaly without radiographic evidence of congestive failure. 2. Chronic parenchymal changes as above with no acute cardiopulmonary abnormality identified. ACT 112: Negative or not required by law. Electronically signed by: Deepak Mckeon M.D. 02/10/2022 7:[address] 02/10/22 21:[address] DOSE: 537.48 mGy.cm HISTORY: Altered mental status. TECHNIQUE: Multiaxial CT images of the head were performed without the use of intravenous contrast. Automated exposure control was utilized for this study. A dose lowering technique was utilized adhering to the principles of ALARA. Comparison: Head CT 12/07/2020. Findings: The paranasal sinuses and mastoid air cells are clear. The calvarium and skull base are intact. There is no mass, hematoma, midline shift, acute infarct. White matter hypodensity is nonspecific but suggestive of microvascular ischemic change. The ventricles and sulci demonstrate mild age-related involutional changes. Impression: No acute intracranial abnormality. Atrophy and microvascular ischemic changes. ACT 112: Negative or not required by law. Electronically signed by: Yaya Whittington M.D. 02/11/2022 7:15 AM Chest X-Ray 02/12/22 07:00 XR chest 2V PA/lateral HISTORY: 86 years-old Female EXACT TIME ORDERED Evaluate for pneumothorax and l status post placement of a left subclavian pacer COMPARISON: Chest radiograph 02/10/2022 TECHNIQUE: PA and lateral views of the chest FINDINGS: Cardiac silhouette is mildly enlarged. Chronic perihilar and midlung opacities are noted with possible emphysema. Unchanged blunting of the costophrenic angles with hyperinflation. Status post placement of a left subclavian dual lead pacer device. No postprocedural pneumothorax identified. The bones appear grossly intact. Lumbar dextroscoliosis. Cholecystectomy. IMPRESSION: Status post placement of a left subclavian pacer. No postprocedural pneumothorax. ACT 112: Negative or not required by law. The above report was generated using voice recognition software. It may contain grammatical, syntax or spelling errors. Electronically signed by: Faisal Payne M.D. 02/12/2022 8:41 AM Chest X-Ray 02/13/22 07:00 XR chest 2V PA/lateral HISTORY: Left-sided pacemaker placement. COMPARISON: Chest 02/12/2022. FINDINGS: Status post left-sided dual-chamber pacemaker. The left ventricular lead has changed in position compared to the prior study. The leads appear intact. No pneumothorax. The heart is normal in size. The lungs are hyperexpanded with apical predominant emphysematous changes. Stable blunting of the costophrenic sulci. Chronic perihilar midlung densities are again noted. Prior cholecystectomy. IMPRESSION: 1. Interval revision of the left ventricular pacemaker lead. 2. No pneumothorax. ACT 112: Negative or not required by law. Electronically signed by: Yaya Whittington M.D. 02/13/2022 9:27 AM ECG Vent. Rate : 098 BPM Atrial Rate : 300 BPM P-R Int : 000 ms QRS Dur : 080 ms QT Int : 370 ms P-R-T Axes : 000 031 -74 degrees QTc Int : 472 ms Atrial flutter with variable A-V block with occasional ventricular-paced complexes Nonspecific ST and T wave abnormality Prolonged QT Abnormal ECG When compared with ECG of 12-FEB-2022 06:30, (unconfirmed) HR has decreased Confirmed by Denys Montemayor ([id number]) on 02/14/2022 9:06:08 AM Hospital Course (1) Tachy-roge syndrome: 86-year-old female with a history of paroxysmal atrial fibrillation, PE, GERD, hypertension, depression, anxiety, and hypothyroidism who presented for eval of dizziness and palpitations, concerning for tachy roge syndrome, and is s/p pacemaker. (1) Tachy-roge syndrome: -- frequent and multiple observed fluctuations between what appeared to be junctional and sinus bradyarrhythmia with ventricular rates in the 30-40s with SVT in the range of 130-150 -- s/p pacemaker placement 02/11/22; s/p lead revision on 02/12/22. f/u w/ cardiology -- L arm precaution: avoid elevation above shoulder for 2 wks (2) Atrial fib/flutter with rapid ventricular response: -- converted to sinus on 02/13/22 after increased beta blockade -- titrated metoprolol succinate to 150mg qam -- Eliquis (3) Left-sided chest pain: -- MSK sec to PPM placement. 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 D/c'd home amlodipine because of increased dose of beta derian. PCP to restart if necessary. (10) Anxiety: -- Home ativan 1mg PO TID, chronic regimen. Patient appears to have dependence of this medication. PCP to consider slow tapering of. (11) Depression: (12) GERD (gastroesophageal reflux disease): -- Continue pantoprazole (13) Hypothyroid: -- Continue home regimen, TSH normal on arrival Patient was DNR/DNI this admission. (2) Atrial fibrillation with rapid ventricular response: (3) Left-sided chest pain: (4) Asymptomatic bacteriuria: (5) History of pulmonary embolism: (6) JESS (acute kidney injury): (7) Hypokalemia: (8) Colostomy in place: (9) HTN (hypertension): (10) Anxiety: (11) Depression: (12) GERD (gastroesophageal reflux disease): (13) Hypothyroid: (14) Pacemaker: Total Time Total Time Spent Total Time Spent (In Minutes): <30 Discharge Plan Discharge Items Patient Disposition: Home - Self-Care Reason For Visit: C/F TACHY-ROGE SYNDROME Discharge Diagnosis: tachybrady syndrome Activity: Per Instructions section Non-emergency contact: Primary Care Provider and Top Hat Body Maker Call non-emergency contact if: you have any medication questions, your symptoms worsen and you have a fever Follow-up/Referrals: Denys Montemayor MD [Physician] - 02/15/22 10:00 am Twila Denton MD [Primary Care Provider] - (*PLEASE CONTACT THIS OFFICE TO SCHEDULLE YOUR APPOINTMENT - hospital discharge follow up within 1 week.) Diet: Regular Addtl Attending Provider Instructions: You were admitted to the hospital for a condition called tachybrady syndrome. This is where your heart switches between beating too fast and beating too slow. A pacemaker was placed to correct the low heart rate. Your heart rhythm converted into atrial fibrillation, but has since reverted back to normal rhythm. Do not elevate your left arm above shoulder for 2 weeks. MEDICATION CHANGES: You will be taking oral metoprolol succinate 150mg every morning. Please stop taking amlodipine (blood pressure medication) because the metoprolol also lowers blood pressure. Your PCP will decide if appropriate to restart the amloidipine at a later time. You will see Dr. Montemayor in the office on 02/15/22 at 10AM ([facility] outpatient cardiology) and continue periodic followup for pacemaker care. Please also see your PCP within 1 week of leaving the hospital. Return precautions: If you develop any new or worsening symptoms including fever, chills, sweats, chest pain, chest pressure, difficulty breathing, uncontrolled nausea/vomiting, rash, wheezing, passing out or nearly passing out, bleeding, black/bloody bowel movements, or other new or concerning symptoms please call your primary care phy sician, or call 911 for re-evaluation in the emergency department if you are very concerned. Addtl Hose Maker Provider Instructions: ACTIVITY RECOMMENDATIONS: * Do not raise affected arm over head for 2 weeks. SPECIAL CARE INSTRUCTIONS: * If bleeding occurs, apply direct pressure to area for 5 minutes. * Call your doctor if you have severe pain, fever, drainage or bleeding at site. * Keep dressing on and dry. * Keep any scheduled doctor's appointment. * Implant Card - hand held device with website information given. SKIN IRRITATION: * You may experience some redness and/or swelling in the area where radiation was administered. If any skin irritation occurs, please contact your family physician. FOLLOW UP VISIT: Keep any scheduled doctor appointments. Pending Studies at Discharge: No Stand-Alone Forms: My [facility] [place] [email or web address], Smoking Cessation Medications and DC Order Prescriptions: New metoprolol succinate 50 mg Tablet Extended Release 24 Hr 150 mg PO QAM 30 Days Qty: 90 RF: 0 Continued levothyroxine 25 mcg Tablet 25 mcg PO QAM RF: 0 pantoprazole [Protonix] 20 mg Tablet,Delayed Release (Dr/Ec) 40 mg PO QAM RF: 0 promethazine 25 mg Tablet 25 mg PO Q4H PRN (Reason: Nausea) RF: 0 lorazepam 1 mg Tablet 1 mg PO TID RF: 0 kddsgcdipw-bjgyinoufucic-ymrg 50-325-40 mg Tablet 1 tab PO Q4H PRN (Reason: Headache) RF: 0 potassium chloride 8 mEq tablet extended release 16 meq PO QAM RF: 0 oxybutynin chloride 10 mg tablet extended release 24hr 10 mg PO HS RF: 0 Eliquis 2.5 mg Tablet 2.5 mg PO BID 30 Days Qty: 60 RF: 3 Discontinued metoprolol tartrate 25 mg Tablet 25 mg PO BID 30 Days Qty: 60 RF: 3 amlodipine [Norvasc] 5 mg Tablet 10 mg PO QAM 30 Days Qty: 60 RF: 3 Discharge Orders: Discharge Order (Routine); Ordered 02/14/22 Ordered By: Chance Garner/Other Patient Handouts: Pacemaker Implant Dc Admission Data Admit Date/Time: 02/10/22 23:34 Attending Provider: Jinny Ramos Admit Provider: Kael Lombardi Primary Care Provider: Twila Denton Other Providers: Juventino Deluna ; Denys Montemayor Other Interventions: Discharge Summary Assessment (RN) Last Done: 02/14/22 14:04 Supervising Physician Co-Signing Physician Notes Resident Physician Supervision Note: I independently interviewed and examined the patient and verified the ashley history and physical, reviewed labs and image studies and agree with resident Dr. Parra findings and care plan. Resident Activity Tracking Resident Involvement: Resident Care Provided Care Provided: Adult Hospital Medicine
[2022-02-14 08:22] LABS: Hematocrit (blood only) 39.7 % (37-47); Hemoglobin 12.9 g/dL (12.0-16.0); Mean Corpuscular Hemoglobin 31.9 pg (25-34); Mean Corpuscular Hgb Conc 32.5 g/dL (32-36); Mean Platelet Volume 9.3 fL (7.4-10.4); Platelet Count 174 K/uL (130-400); RDW Coefficient of Variation 13.8 % (11.5-14.5); Red Blood Count 4.05 M/uL (4.2-5.4); White Blood Count 9.94 K/uL (4.8-10.8)
[2022-02-14] MEDS ORDERED: CETIRIZINE HCL 10 MG TABLET PO STA (08:27)
[2022-02-14] MEDS: PANTOprazole 40 MG TAB PO SCH (08:28)
[2022-02-14] MEDS: APIXABAN 2.5 MG TAB PO SCH (08:28)
[2022-02-14] MEDS: LORazepam 1 MG TAB PO SCH ×2 (08:32→15:44)
[2022-02-14 08:48] LABS: BUN Creatinine Ratio 27.9 (10-20); Calcium 8.6 mg/dl (8.5-10.1); Est GFR (African American) 71.9 ml/min; Magnesium 1.8 mg/dl (1.7-2.4)
--- NOTE | 2022-02-14 08:50 | Electrocardiogram Report ---
Test Reason : Blood Pressure : / mmHG Vent. Rate : 105 BPM Atrial Rate : 250 BPM P-R Int : 000 ms QRS Dur : 074 ms QT Int : 342 ms P-R-T Axes : 000 036 250 degrees QTc Int : 452 ms Suspect unspecified pacemaker failure Atrial fibrillation with rapid ventricular response Abnormal ECG When compared with ECG of 11-FEB-2022 13:23, (unconfirmed) Atrial fibrillation is now present Confirmed by Denys Montemayor ([id number]) on 02/14/2022 8:49:57 AM Referred By: REFERRED SELF Confirmed By:Denys Montemayor
[2022-02-14] MEDS ORDERED: METOPROLOL SUCC 50MG EXT REL TAB PO SCH (09:00)
--- NOTE | 2022-02-14 09:06 | Electrocardiogram Report ---
Test Reason : Blood Pressure : / mmHG Vent. Rate : 098 BPM Atrial Rate : 300 BPM P-R Int : 000 ms QRS Dur : 080 ms QT Int : 370 ms P-R-T Axes : 000 031 -74 degrees QTc Int : 472 ms Atrial flutter with variable A-V block with occasional ventricular-paced complexes Nonspecific ST and T wave abnormality Prolonged QT Abnormal ECG When compared with ECG of 12-FEB-2022 06:30, (unconfirmed) HR has decreased Confirmed by Denys Montemayor ([id number]) on 02/14/2022 9:06:08 AM Referred By: REFERRED SELF Confirmed By:Denys Montemayor
--- NOTE | 2022-02-14 10:55 | Cardiology Progress Note ---
Date of Service February 14, 2022 Assessment & Plan (1) Pacemaker lead malfunction: Plan: 1. Postop day #2 post lead revision, #3 post pacemaker: The surgical site looks good, no bleeding or swelling. I did change the dressing today. 2. Tachybradycardia syndrome: She had periods of rapid heart rate alternating with periods of symptomatic bradycardia and episodes of apparent loss of consciousness due to prolonged sinus node recovery time. This is consistent with severe sinus node dysfunction even when she is not on AV jabier blocking medications. With a pacemaker in place we will need medications to control her heart rate and the pacemaker will keep her from becoming bradycardic. 3. SVT: The sustained supraventricular arrhythmia identified early this admission is suggestive of a reentrant SVT the way it starts and stops although on twelve-lead electrocardiography I could not identify clear atrial activity. This arrhythmia was present during surgery and we could document typical AV jabier reentry as a mechanism. This seemed very well suppressed on beta-blockade and cannot occur during atrial fibrillation. Since we started the beta-derian she has had none of this rhythm, we can monitor for it using the pacemaker. 4. Atrial fibrillation: I did review her electrocardiogram from October 17, 2021 and it is more suggestive of atrial flutter with variable AV conduction than atrial fibrillation, however she now clearly has atrial fibrillation. It is possible that is related to the pacemaker implantation, although since she has a history of atrial arrhythmias I suspect it is a recurrence of her prior arrhythmia. She will need anticoagulation long-term, she is doing well on Eliquis. Her heart rate was a little bit fast but I think under adequate control before she converted to sinus rhythm and I would maintain her current AV jabier blocking medications. 5. Remote pulmonary embolism: Her granddaughter tells me that the pulmonary embolism occurred when she had a central line placed on the right, although it would be rare to get a pulmonary embolism from a subclavian vein thrombosis. She has been on long-term anticoagulation so that should be sufficient for both atrial fibrillation and DVT. 6. Anticoagulation: I would recommend using her prior Eliquis 2.5 mg twice a day as an anticoagulant over the long run, she is doing well on it so far. She is stable for discharge from my standpoint. I have made an appointment tomorrow at 10:00 for a wound check and placed that in her discharge instructions. I also placed her incisional precautions in the discharge. Admission and Anticipated Discharge Date Admission Date: February 10, 2022 Subjective She has no complaints today, she is not having any further chest discomfort and has minimal incisional discomfort. She feels well enough to go home. Physical Exam Physical Exam: The incision is clean and dry, the area is somewhat ecchymotic but it is not swollen and there is no erythema or tenderness. Results & Data ([facility]) Vital Signs (Past 12 Hours) Vital Signs Temp Pulse Pulse Resp BP BP Pulse Ox 02/14/22 08:12 37.0 C 70 18 155/87 H 96 02/14/22 07:29 67 02/14/22 02:59 37.0 C 73 16 151/80 H 96 02/13/22 23:16 37.3 C 69 16 154/79 H 96 Laboratory Results CBC 02/14/22 Range/Units 07:45 WBC 9.94 (4.8-10.8) K/uL RBC 4.05 L (4.2-5.4) M/uL Hgb 12.9 (12.0-16.0) g/dL Hct 39.7 (37-47) % Plt Count 174 (130-400) K/uL Comprehensive Metabolic Panel 02/14/22 Range/Units 07:45 Sodium 138 (136-145) mmol/L Potassium 4.0 D (3.5-5.1) mmol/L Chloride 108 H (98-107) mmol/L Carbon Dioxide 21 (21-32) mmol/L BUN 24 H (6-23) mg/dl Creatinine 0.86 (0.6-1.2) mg/dl Glucose 106 H (70-99(Fasting)) mg/dl Calcium 8.6 (8.5-10.1) mg/dl Intake and Output 02/13/22 02/14/22 02/14/22 22:59 06:59 14:59 Intake Total 350 / 588.334 Output Total 101 / 151 Balance 350 / 437.334 -101 / 437.334 Intake: Oral 350 / 450 Output: Urine 100 / 150 # Bowel Movements Other: # Unmeasured Voids 1 1 Weight 47 kg Weight Measurement Method Built in [facility] Diagnostic Findings Telemetry: Atrial pacing and sinus rhythm since conversion to sinus rhythm yesterday afternoon. Normal pacer operation. PG Care Time/CCT Total # of Minutes Spent Total Time Spent with Patient: Total time spent is greater than 50% in coordination of care (as documented) at patient's floor/unit and/or counseling patient: Coding Level of Care Code 93529 Post Operative Follow-Up Diagnoses Pacemaker lead malfunction T82.110A
== END 2022-02-14 15:55 | disposition home or self-care (01) | DRG 242 ==
LOC: ED 18:02 → SUATTDRO 23:34 → 1E 23:34 → 2S 02-11 18:33

== ENCOUNTER 2024-02-13 17:47 | Inpatient (IN) ==
--- NOTE | 2024-02-13 18:23 | Emergency Department Note ---
Impression & Plan Closed hip fracture, Fracture of spinous process of cervical vertebra ED Provider Note NAME: LEXX ROBERSON AGE: 88 SEX: F : 1935 ARRIVES VIA: Ambulance INFORMANT: Patient, ED PROVIDER(S): Mason Maurice MD CHIEF COMPLAINT: Fall HPI: This is a 88-year-old female with history of paroxysmal atrial fibrillation, tachybradycardia syndrome, pacemaker, on Eliquis, hypertension, anxiety, hypothyroidism presenting for a ground level fall. Patient states that and today had a fall. She states she was distracted when talking to someone and fell because her legs are becoming weaker. She notes that she has had increasing falls at home. She lives alone. She has bruising to her face from previous falls. She notes that she can follow more often due to weakness. ROS: See above HPI for pertinent positives & negatives. A total of ystems reviewed and were otherwise negative. PHYSICAL EXAMINATION: General: resting comfortably in no acute distress Head: Normocephalic scattered bruising of various ages to face Eyes: Normal inspection, extraocular muscles intact Ear, nose, throat: Normal external exam Neck: Normal range of motion Respiratory: lungs clear to auscultation bilaterally Cardiovascular: Regular rate/rhythm, no murmur GI: soft, nontender, no guarding or rebound Extremities: Right lower extremity is shortened and externally rotated, 2+ pulses well-perfused Neuro: The patient awake and alert, appropriately conversive, no focal deficits, symmetric faces Skin: Warm, dry, and intact MEDICAL DECISION MAKING: This is a 89-year-old female presenting after a ground-level fall. Consider hip fracture of the right hip with shortened and externally rotated leg. Patient still has facial trauma from previous falls and is on Eliquis. Will do CT of the head/C-spine -Head CT reveals no acute cranial process -C-spine CT does reveal acute C4/C5 spinous process fractures -Patient's hip x-ray as independent read by me reveals a right intertrochanteric hip fracture -Laboratory leukocytosis of 14.24 otherwise no significant abnormalities -Chest Xray independently interpreted by me showing no pneumothorax, focal opacity, or pleural effusions. -ECG independently interpreted by me with atrially paced rhythm, rate of 60, W[place] 248, normal QRS, normal QTc, no ST segment elevations consistent with STEMI criteria -Patient will require admission for her hip fracture and spinous process fracture. Patient placed in [place] J collar Differential diagnosis: Hip fracture, head trauma acute hemorrhage, spinal fracture ER treatment provided: See below Diagnostics interpreted by me: ECG: See above Cardiac Monitoring: An order was placed for continuous cardiac monitoring. The monitor shows a rate of 60 with sinus rhythm. Laboratory studies: As stated above and show below. Imaging studies: See below. Past Med/Surg History Medical History Abdominal pain, epigastric Abnormal EKG Abnormal urinalysis Acute dehydration Anorexia Anxiety Asymptomatic bacteriuria Atrial fibrillation with rapid ventricular response Cerumen impaction Chest pain, rule out acute myocardial infarction Chronic back pain PAIN TO BOTH LEGS Chronic nausea Colostomy in place Depression Dizziness Dysrhythmia GERD (gastroesophageal reflux disease) GERD (gastroesophageal reflux disease) Headache History of palpitations "skips beats" History of pulmonary embolism Hypertension Hypokalemia Hypokalemia Hypomagnesemia Hypomagnesemia Intractable nausea and vomiting Left-sided chest pain Leukocytosis Lung nodules previously biopsied - benign Migraine Osteoarthritis Pacemaker lead malfunction Paroxysmal atrial fibrillation Partial small bowel obstruction Poor historian Pulmonary embolism 4-5 years ago - asymptomatic - incidental finding - treated w/ blood thinners x 6 months, cause? Pulmonary hypertension Seasonal allergies SVT (supraventricular tachycardia) Trouble swallowing CERTAIN FOODS WILL STICK WHEN SWALLOWING Weight loss 30+ lb weight loss in lst 6 months Surgical History History of bronchoscopy History of colonoscopy History of colostomy 10 -12years - placed b/c of incontinence (cause??) History of esophagogastroduodenoscopy (EGD) w/ dilatation History of hernia repair History of Lloyd fundoplication History of surgery left elbow Hx of bladder repair surgery FOR SUPPORT Hx of cholecystectomy Hx of thyroidectomy PARTIAL Hx of tonsillectomy Nausea and vomiting after administration of anesthetic agent S/P ANKIT-BSO HX Family History Mother Hypertension Cancer Father Cancer Other No family history of adverse response to anesthesia No family history of bleeding disorder Social History Smoking Status: Unknown if ever smoked Second Hand Exposure: No; Do You Dip or Chew Tobacco: No; Hx Alcohol Use: No Hx Substance Use: No Preferred Language: Nigerien Communication Ability: Effective Entrepreneur Required: No Beliefs That Will Affect Care: None marital status: / Current Living Situation: Alone How many Children do You have: 4 Feels Safe at Home: Yes Safety Concerns: Feels Safe At This Time Assistive Devices: Cane Allergies Allergies Allergy/AdvReac Type Severity Reaction Status Date / Time verapamil Allergy Severe "THINGS Verified 02/13/24 22:37 STARTED TO SHUT DOWN-HEART, B/P TILL GOT TO ER". aspirin AdvReac Unknown GI UPSET, Verified 02/13/24 22:37 TAKES BABY ASA WITHOUT PROB Home Meds Home Medications Medication Instructions Recorded Confirmed levothyroxine 25 mcg tablet 25 mcg PO QAM 07/03/18 02/13/24 lorazepam 1 mg tablet 1 mg PO TID 07/03/18 02/13/24 promethazine 25 mg tablet 25 mg PO Q4H PRN Nausea 07/03/18 02/13/24 iccijjhset-ygyawkzrudhxh-awfdkaik 1 tab PO Q4H PRN Headache 12/07/20 02/13/24 50 mg-325 mg-40 mg tablet potassium chloride 8 mEq 16 meq PO QAM 12/07/20 02/13/24 tablet,extended release pantoprazole 20 mg tablet,delayed 40 mg PO QAM 05/27/22 02/13/24 release (Protonix) escitalopram oxalate 5 mg tablet 5 mg PO DAILY 02/13/24 02/13/24 Previous Rx's Medication Instructions Recorded apixaban 2.5 mg tablet (Eliquis) 2.5 mg PO BID 30 days #60 tabs 10/20/21 tramadol 50 mg tablet (Ultram) 50 mg PO Q6H PRN pain #30 tabs 03/04/22 diltiazem HCl 240 mg 240 mg PO DAILY #30 caps 05/26/22 capsule,extended release 24 hr (Cardizem CD) metoprolol succinate 200 mg 200 mg PO DAILY #90 tabs 11/22/22 tablet,extended release 24 hr Results & Data (ED) Vital Signs Vital Signs - 24 hr 02/13/24 18:06 02/13/24 18:07 02/13/24 18:47 Temperature 37.2 C Temperature Source Oral Pulse Rate 68 70 60 Pulse Rate [Right Finger] Pulse Rhythm [Right Finger] Pulse Strength [Right Finger] Respiratory Rate 18 Respiratory Effort / Characteristics Non-Labored Spontaneous Respiratory Depth Normal Respiratory Pattern Blood Pressure 228/107 H 179/104 H Blood Pressure [Right Arm] Blood Pressure Mean 147 Blood Pressure Mean [Right Arm] Blood Pressure Position [Right Arm] Pulse Oximetry 98 Oxygen Delivery Method Room Air Sepsis Recent Fever Within 48 Hours No Sepsis New/Unexplained Change in Mental Status N/A Sepsis Action Taken by Nursing No Action Required 02/13/24 19:45 02/13/24 20:05 02/13/24 21:00 Temperature Temperature Source Pulse Rate 61 Pulse Rate [Right Finger] 60 60 Pulse Rhythm [Right Finger] Regular Regular Pulse Strength [Right Finger] Normal Normal Respiratory Rate 12 18 Respiratory Effort / Characteristics Non-Labored Non-Labored Respiratory Depth Normal Normal Respiratory Pattern Regular Regular Blood Pressure 122/77 Blood Pressure [Right Arm] 118/73 97/55 L Blood Pressure Mean Blood Pressure Mean [Right Arm] 88 69 Blood Pressure Position [Right Arm] Sitting Lying Pulse Oximetry 95 96 Oxygen Delivery Method Room Air Room Air Sepsis Recent Fever Within 48 Hours Sepsis New/Unexplained Change in Mental Status Sepsis Action Taken by Nursing 02/13/24 21:56 02/13/24 22:00 Temperature Temperature Source Pulse Rate 61 Pulse Rate [Right Finger] 60 Pulse Rhythm [Right Finger] Regular Pulse Strength [Right Finger] Normal Respiratory Rate 18 Respiratory Effort / Characteristics Non-Labored Respiratory Depth Normal Respiratory Pattern Regular Blood Pressure Blood Pressure [Right Arm] 106/63 Blood Pressure Mean Blood Pressure Mean [Right Arm] 77 Blood Pressure Position [Right Arm] Lying Pulse Oximetry 97 Oxygen Delivery Method Room Air Sepsis Recent Fever Within 48 Hours Sepsis New/Unexplained Change in Mental Status Sepsis Action Taken by Nursing Laboratory Data 02/13/24 19:52 02/13/24 19:52 Lab Results 02/13/24 Range/Units 19:52 WBC 14.24 H (4.8-10.8) K/ul RBC 3.40 L (4.20-5.40) M/uL Hgb 11.0 L (12.0-16.0) g/dl Hct 33.0 L (37.0-47.0) % MCV 97.1 (80.0-100.0) fL MCH 32.4 (25.0-34.0) pg MCHC 33.3 (32.0-36.0) g/dL RDW Std Deviation 45.5 (36.4-46.3) fL RDW Coeff of Hubert 12.7 (11.5-14.5) % Plt Count 214 (130-400) K/uL MPV 9.4 (9.4-12.4) fL Immature Gran % (Auto) 0.4 % Neut % (Auto) 84.7 % Lymph % (Auto) 8.9 % Dixie % (Auto) 5.0 % Eos % (Auto) 0.6 % Baso % (Auto) 0.4 % Neut # (Auto) 12.07 H (1.40-6.50) K/uL Lymph # (Auto) 1.27 (1.20-3.40) K/uL Dixie # (Auto) 0.71 H (0.11-0.59) K/uL Eos # (Auto) 0.09 (0.00-0.50) K/uL Baso # (Auto) 0.05 (0.00-0.20) K/uL Immature Gran # (Auto) 0.05 (0.01-0.20) K/uL PT 11.1 (9.0-12.0) Seconds INR 1.0 (0.9-1.1) APTT 24 (21-31) Seconds PTT Ratio 0.9 Sodium 139 (136-145) mmol/L Potassium 4.1 (3.5-5.1) mmol/L Chloride 108 H (98-107) mmol/L Carbon Dioxide 21 (21-32) mmol/L Anion Gap 10 (3-11) BUN 18 (6-23) mg/dl Creatinine 1.12 (0.6-1.2) mg/dl Est Cr Clr Drug Dosing 20.7 ml/min Est GFR ( Amer) 51.5 ml/min Est GFR (Non-Af Amer) 44.4 ml/min BUN/Creatinine Ratio 16.1 (10-20) Glucose 171 H (70-99(Fasting)) mg/dl Calcium 8.2 L (8.6-10.3) mg/dl Administered Medications Hydromorphone HCl (Hydromorphone Inj 0.5 Mg/0.5 Ml Syr) 0.25 mg IV Q3H PRN PRN Reason: Pain (1,2,3,4,5) & Pre PT Stop: 02/27/24 23:23 Last Admin: 02/13/24 23:48 Dose: 0.25 mg Documented By: MICHAEL Heparin Sodium/Dextrose (Heparin Sodium/Dextrose) 25,000 units in 500 mls @ 9 mls/hr IV .Q24H [facility]; Protocol Stop: 03/14/24 22:14 Last Admin: 02/14/24 01:14 Dose: 450 units/hr, 9 mls/hr Documented By: MICHAEL Co-signed By: HAIR Potassium Chloride/Sodium Chloride (Normal Saline W/20 Meq Kcl) 20 meq in 1,000 mls @ 80 mls/hr IV .[id number] [facility]; Protocol Stop: 03/14/24 23:23 Last Admin: 02/14/24 01:10 Dose: 80 mls/hr Documented By: MICHAEL Discontinued Medications Heparin Sodium/Dextrose (Heparin Iv Adult Wt-Based Low-Dose *No* Initial Bolus Protocol) 1 each IV ONE STA; Protocol Stop: 02/13/24 21:57 Last Admin: 02/14/24 01:16 Dose: 1 each Documented By: MICHAEL Hydromorphone HCl (Hydromorphone Inj 0.5 Mg/0.5 Ml Syr) 0.5 mg IV NOW STA Stop: 02/13/24 18:51 Last Admin: 02/13/24 19:29 Dose: 0.5 mg Documented By: BHUMI Promethazine HCl 12.5 mg/ (Sodium Chloride) 50.5 mls @ 202 mls/hr IV NOW STA Stop: 02/14/24 00:42 Last Admin: 02/14/24 00:47 Dose: 202 mls/hr Documented By: MICHAEL Ketorolac Tromethamine (Ketorolac Tromethamine 15 Mg/Ml Vial) 15 mg IV NOW ONE Stop: 02/13/24 18:20 Last Admin: 02/13/24 18:46 Dose: 15 mg Documented By: BHUMI Labetalol HCl (Labetalol Hcl Iv 5 Mg/Ml 20ml) 10 mg IV NOW STA Stop: 02/13/24 18:31 Last Admin: 02/13/24 18:47 Dose: 10 mg Documented By: BHUMI Co-signed By: MARICEL Ondansetron HCl (Ondansetron Inj 2 Mg/Ml 2 Ml Vial) Confirm Administered Dose 4 mg .ROUTE .[employer] ONE Stop: 02/13/24 23:42 Last Admin: 02/13/24 23:47 Dose: 4 mg Documented By: MICHAEL Imaging Data Radiologist's Impression: Cervical Spine CT 02/13/24 18:15 CT SCAN OF THE CERVICAL SPINE CLINICAL HISTORY: Trauma. Fall. COMPARISON STUDY: No priors. TECHNIQUE: CT scan of the cervical spine is performed from the skull base to the upper thoracic spine. Images are reviewed in the axial, sagittal, and coronal planes. IV contrast was not administered for this examination. A dose lowering technique was utilized adhering to the principles of ALARA. CT DOSE: 1015.03 mGy.cm FINDINGS: Skeletal structures: The skeletal structures are osteopenia. There are acute spinous process fractures at C4 and C5. No additional acute fracture is seen involving the cervical spine. There remains spinous processes appear intact. There is no subluxation. Vertebral body height is maintained. There is minimal anterolisthesis at C4-C5 and C7-T1. Alignment is otherwise preserved. There is straightening of the cervical lordosis. Anterior osteophytes are seen throughout. The odontoid process and lateral masses are intact. The atlantoaxial articulation is preserved noting productive degenerative change. There is mild to moderate multilevel facet arthropathy. Intervertebral discs: There is severe disc space narrowing at C5-C6 with associated bony sclerosis. Moderate to severe narrowing is seen at C3-C4, C4-C5, and C6-C7. Central canal: Posterior disc osteophyte complexes at C4-C5, C5-C6, and C6-C7 may contribute to mild acquired compromise of the central canal. Soft tissues: The prevertebral and paraspinous soft tissues are within normal limits. The right thyroid lobe is enlarged and heterogeneous indicative of goiter. The left lobe is diminutive versus surgically absent. There is atherosclerotic calcification of the carotid bulbs. Pacemaker leads are noted at the left thoracic inlet. Calvarium: The visualized calvarium at the skull base appears intact. Brain parenchyma: Partially visualized brain parenchyma at the skull base is within normal limits. Sinuses and mastoids: The visualized paranasal sinuses are clear. The mastoid air cells are well pneumatized. Lung apices: Clear as visualized. IMPRESSION: 1. Acute spinous process fractures of C4 and C5. 2. No additional acute fracture is seen involving the cervical spine. There is no subluxation. 3. Osteopenia and spondylotic change as above. ACT 112: Negative or not required by law. Electronically signed by: Deepak Mckeon M.D. 02/13/2024 7:[address] 02/13/24 18:15 CT SCAN OF THE BRAIN WITHOUT IV CONTRAST CLINICAL HISTORY: Fall. COMPARISON STUDY: CT of the brain dated 02/10/2022. TECHNIQUE: Unenhanced axial CT scan of the brain is performed from the vertex to the skull base. A dose lowering technique was utilized adhering to the principles of ALARA. FINDINGS: Brain parenchyma: There is age-related involutional change noting moderate subcortical and periventricular microangiopathic disease. There is no hemorrhage, mass effect, or evidence of acute territorial ischemia by CT criteria. Marshall-white matter differentiation is preserved. No extra-axial fluid collection is seen. Ventricles, sulci, cisterns: Prominent secondary to involutional change. Intracranial vasculature: There is atherosclerotic calcification of the cavernous carotid arteries. Calvarium: The skeletal structures are osteopenic. No depressed fracture is seen. Sinuses and mastoids: The visualized paranasal sinuses are clear. The mastoid air cells are well pneumatized. Orbits: The bony orbits are grossly intact. There are bilateral ocular lens implants. IMPRESSION: There is no hemorrhage, mass effect, or evidence of acute territorial ischemia by CT criteria. ACT 112: Negative or not required by law. Electronically signed by: Deepak Mckeon M.D. 02/13/2024 7:43 PM Hip/Pelvis X-Ray 02/13/24 18:15 SINGLE VIEW PELVIS; 2 VIEWS RIGHT HIP CLINICAL HISTORY: Fall. FINDINGS: An AP supine view of the pelvis with AP and crosstable lateral views of the right hip are correlated with pelvic CT dated 10/16/2021. The skeletal structures are osteopenic. There is a comminuted, displaced, and angulated intertrochanteric fracture of the right proximal femur. There is medial displacement of the lesser trochanter. Overlying soft tissue edema is noted. No additional acute fracture is seen involving the left hip or the bony pelvis. Moderate arthritic change and joint space narrowing is seen in the hips. There is degenerative sclerosis of the sacroiliac joints and pubic symphysis. Lumbosacral spondylosis is partially imaged. Surgical clips project over the pelvis. IMPRESSION: Intertrochanteric fracture of the right proximal femur as above. Electronically signed by: Deepak Mckeon M.D. 02/13/2024 7:38 PM Chest X-Ray 02/13/24 18:16 SINGLE VIEW CHEST CLINICAL HISTORY: Fall. Hip fracture. FINDINGS: An AP, supine, upright chest radiograph is compared to study dated 05/26/2022. Correlation is made with chest CT dated 10/14/2021. A 2-lead cardiac pacemaker is unchanged in position. The heart is mildly enlarged noting atherosclerotic calcification of the thoracic aorta. The pulmonary vasculature is noncongested. Chronic interstitial thickening is similar to previous. Parenchymal scarring/fibrotic changes again seen in both lungs, similar to previous. No airspace consolidation or large pleural effusion is identified. No pneumothorax is seen. The skeletal structures are osteopenic. The bony thorax is grossly intact. IMPRESSION: 1. Cardiomegaly and cardiac pacemaker without radiographic evidence of congestive failure. 2. Chronic parenchymal changes as above with no airspace consolidation or large pleural effusion identified. ACT 112: Negative or not required by law. Electronically signed by: Deepak Mckeon M.D. 02/13/2024 7:40 PM Discharge Plan Visit Data Chief Complaint: Hip Pain Stated Complaint: HIP PAIN ED Provider: Mason Maurice Discharge Problem: Closed hip fracture, Fracture of spinous process of cervical vertebra Patient Disposition: Admitted As Inpatient Discharge Instructions Interventions: ED Discharge Assessment Last Done: 02/13/24 22:30
[2024-02-13] MEDS: KETOROLAC TROMETHAMINE 15 MG/ML VIAL IV ONE (18:46)
[2024-02-13] MEDS: LABETALOL HCL IV 5 MG/ML 20ML IV STA (18:47)
[2024-02-13] MEDS: HYDROmorphone INJ 0.5 MG/0.5 ML SYR IV STA (19:29)
--- NOTE | 2024-02-13 19:40 | XRay Report ---
SINGLE VIEW PELVIS; 2 VIEWS RIGHT HIP CLINICAL HISTORY: Fall. FINDINGS: An AP supine view of the pelvis with AP and crosstable lateral views of the right hip are c orrelated with pelvic CT dated 10/16/2021. The skeletal structures are osteopenic. There is a comminute d, displaced, and angulated intertrochanteric fracture of the right proximal femur. There is medial d isplacement of the lesser trochanter. Overlying soft tissue edema is noted. No additional acute fract ure is seen involving the left hip or the bony pelvis. Moderate arthritic change and joint space narr owing is seen in the hips. There is degenerative sclerosis of the sacroiliac joints and pubic symphys is. Lumbosacral spondylosis is partially imaged. Surgical clips project over the pelvis. IMPRESSION: Intertrochanteric fracture of the right proximal femur as above. Electronically signed by: Deepak Mckeon M.D. 02/13/2024 7:38 PM
--- NOTE | 2024-02-13 19:42 | XRay Report ---
SINGLE VIEW CHEST CLINICAL HISTORY: Fall. Hip fracture. FINDINGS: An AP, supine, upright chest radiograph is compared to study dated 05/26/2022. Correlation i s made with chest CT dated 10/14/2021. A 2-lead cardiac pacemaker is unchanged in position. The heart i s mildly enlarged noting atherosclerotic calcification of the thoracic aorta. The pulmonary vasculatu re is noncongested. Chronic interstitial thickening is similar to previous. Parenchymal scarring/fibr otic changes again seen in both lungs, similar to previous. No airspace consolidation or large pleura l effusion is identified. No pneumothorax is seen. The skeletal structures are osteopenic. The bony t horax is grossly intact. IMPRESSION: 1. Cardiomegaly and cardiac pacemaker without radiographic evidence of congestive failure. 2. Chronic parenchymal changes as above with no airspace consolidation or large pleural effusion iden tified. ACT 112: Negative or not required by law. Electronically signed by: Deepak Mckeon M.D. 02/13/2024 7:40 PM
--- NOTE | 2024-02-13 19:45 | CT Scan Report ---
CT SCAN OF THE BRAIN WITHOUT IV CONTRAST CLINICAL HISTORY: Fall. COMPARISON STUDY: CT of the brain dated 02/10/2022. TECHNIQUE: Unenhanced axial CT scan of the brain is performed from the vertex to the skull base. A do se lowering technique was utilized adhering to the principles of ALARA. FINDINGS: Brain parenchyma: There is age-related involutional change noting moderate subcortical and periventri cular microangiopathic disease. There is no hemorrhage, mass effect, or evidence of acute territorial ischemia by CT criteria. Marshall-white matter differentiation is preserved. No extra-axial fluid collec tion is seen. Ventricles, sulci, cisterns: Prominent secondary to involutional change. Intracranial vasculature: There is atherosclerotic calcification of the cavernous carotid arteries. Calvarium: The skeletal structures are osteopenic. No depressed fracture is seen. Sinuses and mastoids: The visualized paranasal sinuses are clear. The mastoid air cells are well pneu matized. Orbits: The bony orbits are grossly intact. There are bilateral ocular lens implants. IMPRESSION: There is no hemorrhage, mass effect, or evidence of acute territorial ischemia by CT marques palacio. ACT 112: Negative or not required by law. Electronically signed by: Deepak Mckeon M.D. 02/13/2024 7:43 PM
--- NOTE | 2024-02-13 19:55 | CT Scan Report ---
CT SCAN OF THE CERVICAL SPINE CLINICAL HISTORY: Trauma. Fall. COMPARISON STUDY: No priors. TECHNIQUE: CT scan of the cervical spine is performed from the skull base to the upper thoracic spine . Images are reviewed in the axial, sagittal, and coronal planes. IV contrast was not administered fo r this examination. A dose lowering technique was utilized adhering to the principles of ALARA. CT DOSE: 1015.03 mGy.cm FINDINGS: Skeletal structures: The skeletal structures are osteopenia. There are acute spinous process fracture s at C4 and C5. No additional acute fracture is seen involving the cervical spine. There remains spin ous processes appear intact. There is no subluxation. Vertebral body height is maintained. There is minimal anterolisthesis at C4-C5 and C7-T1. Alignment is otherwise preserved. There is straightening of the cervical lordosis. Anterior osteophytes are seen throughout. The odontoid process and lateral masses are intact. The atlantoaxial articulation is preserved noting productive degenerative change. There is mild to moderate multilevel facet arthropathy. Intervertebral discs: There is severe disc space narrowing at C5-C6 with associated bony sclerosis. M oderate to severe narrowing is seen at C3-C4, C4-C5, and C6-C7. Central canal: Posterior disc osteophyte complexes at C4-C5, C5-C6, and C6-C7 may contribute to mild acquired compromise of the central canal. Soft tissues: The prevertebral and paraspinous soft tissues are within normal limits. The right thyro id lobe is enlarged and heterogeneous indicative of goiter. The left lobe is diminutive versus surgic ally absent. There is atherosclerotic calcification of the carotid bulbs. Pacemaker leads are noted a t the left thoracic inlet. Calvarium: The visualized calvarium at the skull base appears intact. Brain parenchyma: Partially visualized brain parenchyma at the skull base is within normal limits. Sinuses and mastoids: The visualized paranasal sinuses are clear. The mastoid air cells are well pneu matized. Lung apices: Clear as visualized. IMPRESSION: 1. Acute spinous process fractures of C4 and C5. 2. No additional acute fracture is seen involving the cervical spine. There is no subluxation. 3. Osteopenia and spondylotic change as above. ACT 112: Negative or not required by law. Electronically signed by: Deepak Mckeon M.D. 02/13/2024 7:52 PM
[2024-02-13 21:01] LABS: Basophils # (auto) 0.05 K/uL (0.00-0.20); Basophils % (auto) 0.4 %; Eosinophils # (auto) 0.09 K/uL (0.00-0.50); Eosinophils % (auto) 0.6 %; Immature Granulocytes # (auto) 0.05 K/uL (0.01-0.20); Immature Granulocytes % (auto) 0.4 %; Lymphocytes # (auto) 1.27 K/uL (1.20-3.40); Lymphocytes % (auto) 8.9 %; Mean Corpuscular Hemoglobin 32.4 pg (25.0-34.0); Mean Corpuscular Hgb Conc 33.3 g/dL (32.0-36.0); Mean Corpuscular Volume 97.1 fL (80.0-100.0); Mean Platelet Volume 9.4 fL (9.4-12.4); Monocytes # (auto) 0.71 K/uL (0.11-0.59); Neutrophils # (auto) 12.07 K/uL (1.40-6.50); Neutrophils % (auto) 84.7 %; Platelet Count 214 K/uL (130-400); RDW Coefficient of Variation 12.7 % (11.5-14.5); RDW Standard Deviation 45.5 fL (36.4-46.3); White Blood Count 14.24 K/ul (4.8-10.8)
[2024-02-13 21:09] LABS: BUN Creatinine Ratio 16.1 (10-20); Calcium 8.2 mg/dl (8.6-10.3); Creatinine Clr Calc Pharmacy 20.7 ml/min; Est GFR (African American) 51.5 ml/min; Est GFR (Non-African American) 44.4 ml/min; Potassium 4.1 mmol/L (3.5-5.1)
--- NOTE | 2024-02-13 22:04 | History & Physical Report ---
Date of Service February 13, 2024 Assessment & Plan (1) Closed right hip fracture: (2) Fracture of spinous process of cervical vertebra: (3) C5 cervical fracture: (4) C4 cervical fracture: (5) Anticoagulant long-term use: (6) Cardiac pacemaker: (7) Tachy-roge syndrome: (8) Paroxysmal atrial fibrillation: (9) HTN (hypertension): Plan Closed right hip fracture- Status post ground-level mechanical fall NPO Acetaminophen 1 g IV every 8 hours as needed for mild pain or fever Dilaudid 0.25 mg IV every 3 hours as needed for moderate pain Dilaudid 0.5 mg IV every 3 hours as needed for severe pain Geriatric hip fracture order set NSS + KCl 20 mill equivalents at 80 mL/h Zofran 4 mg IV every 6 hours as needed Consult orthopedic surgery Acute spinous process fracture of C4 and C5 cervical vertebrae- Patient reports having chronic pain in her neck over the past few years She denies any acute exacerbations Place in [facility] for now until seen by orthopedic spine Tachybradycardia syndrome/paroxysmal atrial fibrillation- Hold diltiazem CD2 140 mg daily and metoprolol succinate 20 mg daily Lopressor 2.5 mg IV every 4 hours, holding for heart rate less than 60 or systolic blood pressure less than 120 Hold Eliquis Heparin drip low-dose no bolus per protocol History of Present Illness Chief Complaint: The patient presents to the emergency department with complaint of right hip pain after a ground-level fall at home, where she was distracted by talking to someone and same time. She reports increasing frequency of falls at home, and that she does live alone. She has had chronic neck pain for the past 1 to 2 years, and this topical agents on for relief Primary Care Provider: Twila Denton MD The patient is an 88-year-old female with a past medical history including cardiac pacemaker, tachybradycardia syndrome, paroxysmal atrial fibrillation,, depression, anxiety and hypothyroidism. She presents to the emergency department with a history of of increasing falls, with a fall that occurred earlier in the day prior to arrival, resulting in severe left hip pain, with x- ray in the emergency department demonstrating a right femoral intertrochanteric closed fracture. CT scan cervical spine also notes acute spinous process fractures at C4 and C5. Allergies Allergy/AdvReac Type Severity Reaction Status Date / Time verapamil Allergy Severe "THINGS Verified 02/13/24 22:37 STARTED TO SHUT DOWN-HEART, B/P TILL GOT TO ER". aspirin AdvReac Unknown GI UPSET, Verified 02/13/24 22:37 TAKES BABY ASA WITHOUT PROB Home Medications Medication Instructions Recorded Confirmed Type levothyroxine 25 mcg tablet 25 mcg PO QAM 07/03/18 02/13/24 History lorazepam 1 mg tablet 1 mg PO TID 07/03/18 02/13/24 History promethazine 25 mg tablet 25 mg PO Q4H PRN Nausea 07/03/18 02/13/24 History crmzmofwma-lbrpwbyoqjtby-lupelghm 1 tab PO Q4H PRN Headache 12/07/20 02/13/24 History 50 mg-325 mg-40 mg tablet potassium chloride 8 mEq 16 meq PO QAM 12/07/20 02/13/24 History tablet,extended release apixaban 2.5 mg tablet (Eliquis) 2.5 mg PO BID 30 days #60 tabs 10/20/21 02/13/24 Rx tramadol 50 mg tablet (Ultram) 50 mg PO Q6H PRN pain #30 tabs 03/04/22 02/13/24 Rx diltiazem HCl 240 mg 240 mg PO DAILY #30 caps 05/26/22 02/13/24 Rx capsule,extended release 24 hr (Cardizem CD) pantoprazole 20 mg tablet,delayed 40 mg PO QAM 05/27/22 02/13/24 History release (Protonix) metoprolol succinate 200 mg 200 mg PO DAILY #90 tabs 11/22/22 02/13/24 Rx tablet,extended release 24 hr escitalopram oxalate 5 mg tablet 5 mg PO DAILY 02/13/24 02/13/24 History Past Med/Surg History Medical History Abdominal pain, epigastric Abnormal EKG Abnormal urinalysis Acute dehydration Anorexia Anxiety Asymptomatic bacteriuria Atrial fibrillation with rapid ventricular response Cerumen impaction Chest pain, rule out acute myocardial infarction Chronic back pain PAIN TO BOTH LEGS Chronic nausea Colostomy in place Depression Dizziness Dysrhythmia GERD (gastroesophageal reflux disease) GERD (gastroesophageal reflux disease) Headache History of palpitations "skips beats" History of pulmonary embolism Hypertension Hypokalemia Hypokalemia Hypomagnesemia Hypomagnesemia Intractable nausea and vomiting Left-sided chest pain Leukocytosis Lung nodules previously biopsied - benign Migraine Osteoarthritis Pacemaker lead malfunction Paroxysmal atrial fibrillation Partial small bowel obstruction Poor historian Pulmonary embolism 4-5 years ago - asymptomatic - incidental finding - treated w/ blood thinners x 6 months, cause? Pulmonary hypertension Seasonal allergies SVT (supraventricular tachycardia) Trouble swallowing CERTAIN FOODS WILL STICK WHEN SWALLOWING Weight loss 30+ lb weight loss in lst 6 months Surgical History History of bronchoscopy History of colonoscopy History of colostomy 10 -12years - placed b/c of incontinence (cause??) History of esophagogastroduodenoscopy (EGD) w/ dilatation History of hernia repair History of Lloyd fundoplication History of surgery left elbow Hx of bladder repair surgery FOR SUPPORT Hx of cholecystectomy Hx of thyroidectomy PARTIAL Hx of tonsillectomy Nausea and vomiting after administration of anesthetic agent S/P ANKIT-BSO HX Family History Mother Hypertension Cancer Father Cancer Other No family history of adverse response to anesthesia No family history of bleeding disorder Social History Smoking Status: Unknown if ever smoked Second Hand Exposure: No; Do You Dip or Chew Tobacco: No; Hx Alcohol Use: No Hx Substance Use: No Preferred Language: [place] Communication Ability: Effective Crane Operator Required: No Beliefs That Will Affect Care: None marital status: / Current Living Situation: Alone How many Children do You have: 4 Feels Safe at Home: Yes Assistive Devices: Cane Review of Systems Review of Systems: The patient denies chest pain, palpitations, shortness of breath, dyspnea on exertion, cough, sore throat, fevers, chills, sweats, weight change, fatigue, nausea, vomiting, diarrhea , constipation, abdominal pain, pelvic pain, blood in urine or stool, dysuria, urinary frequency or urgency, lightheadedness, dizziness, headache, memory loss, loss of consciousness, rash, abnormal bruising or bleeding, focal or generalized weakness, numbness or tingling in arms, generalized arthralgias or myalgias, or night sweats. The review of systems is otherwise negative other than for that already noted above, and at least 10 systems have been reviewed. Physical Exam Physical Exam: The patient is awake, alert and oriented 3, well developed and well nourished, normocephalic and atraumatic, lying in bed and in no acute distress. HEENT--PERRL, EOMI, mucous membranes and oropharynx normal Neck--supple. No JVD. No bruits. Thyroid normal, trachea midline, no adenopathy. Heart--normal S1 and S2. No murmurs, rubs or gallops. Lungs--clear bilaterally, no respiratory distress, no accessory muscle use. Abdomen--normal bowel sounds and soft. Nontender. Nondistended, no hernias or m asses, no organomegaly. Extremities--no cyanosis or clubbing. No edema. Dermatologic--a few scattered ecchymoses Neurologic--cranial nerves II through XII grossly intact. Rheumatologic--limited exam due to right hip pain Psychiatric--normal affect. Results & Data Results & Data Vital Signs (Past 12 Hours) Vital Signs Temp Pulse Pulse Resp BP BP Pulse Ox 02/13/24 21:56 61 02/13/24 21:00 60 18 97/55 L 96 02/13/24 20:05 61 122/77 02/13/24 19:45 60 12 118/73 95 02/13/24 18:47 60 179/104 H 02/13/24 18:07 70 02/13/24 18:06 37.2 C 68 18 228/107 H 98 O2 Del Method 02/13/24 21:56 02/13/24 21:00 Room Air 02/13/24 20:05 02/13/24 19:45 Room Air 02/13/24 18:47 02/13/24 18:07 02/13/24 18:06 Room Air Laboratory Results Laboratory Results WBC 14.24 K/ul (4.8-10.8) H 02/13/24 19:52 RBC 3.40 M/uL (4.20-5.40) L 02/13/24 19:52 Hgb 11.0 g/dl (12.0-16.0) L 02/13/24 19:52 Hct 33.0 % (37.0-47.0) L 02/13/24 19:52 MCV 97.1 fL (80.0-100.0) 02/13/24 19:52 MCH 32.4 pg (25.0-34.0) 02/13/24 19:52 MCHC 33.3 g/dL (32.0-36.0) 02/13/24 19:52 RDW Std Deviation 45.5 fL (36.4-46.3) 02/13/24 19:52 RDW Coeff of Hubert 12.7 % (11.5-14.5) 02/13/24 19:52 Plt Count 214 K/uL (130-400) 02/13/24 19:52 MPV 9.4 fL (9.4-12.4) 02/13/24 19:52 Immature Gran % (Auto) 0.4 % 02/13/24 19:52 Neut % (Auto) 84.7 % 02/13/24 19:52 Lymph % (Auto) 8.9 % 02/13/24 19:52 [place] % (Auto) 5.0 % 02/13/24 19:52 Eos % (Auto) 0.6 % 02/13/24 19:52 Baso % (Auto) 0.4 % 02/13/24 19:52 Neut # (Auto) 12.07 K/uL (1.40-6.50) H 02/13/24 19:52 Lymph # (Auto) 1.27 K/uL (1.20-3.40) 02/13/24 19:52 [place] # (Auto) 0.71 K/uL (0.11-0.59) H 02/13/24 19:52 Eos # (Auto) 0.09 K/uL (0.00-0.50) 02/13/24 19:52 Baso # (Auto) 0.05 K/uL (0.00-0.20) 02/13/24 19:52 Immature Gran # (Auto) 0.05 K/uL (0.01-0.20) 02/13/24 19:52 PT 11.1 Seconds (9.0-12.0) 02/13/24 19:52 INR 1.0 (0.9-1.1) 02/13/24 19:52 APTT 24 Seconds (21-31) 02/13/24 19:52 PTT Ratio 0.9 02/13/24 19:52 Sodium 139 mmol/L (136-145) 02/13/24 19:52 Potassium 4.1 mmol/L (3.5-5.1) 02/13/24 19:52 Chloride 108 mmol/L (98-107) H 02/13/24 19:52 Carbon Dioxide 21 mmol/L (21-32) 02/13/24 19:52 Anion Gap 10 (3-11) 02/13/24 19:52 BUN 18 mg/dl (6-23) 02/13/24 19:52 Creatinine 1.12 mg/dl (0.6-1.2) 02/13/24 19:52 Est Cr Clr Drug Dosing 20.7 ml/min 02/13/24 19:52 Est GFR ( Amer) 51.5 ml/min 02/13/24 19:52 Est GFR (Non-Af Amer) 44.4 ml/min 02/13/24 19:52 BUN/Creatinine Ratio 16.1 (10-20) 02/13/24 19:52 Glucose 171 mg/dl (70-99(Fasting)) H 02/13/24 19:52 Calcium 8.2 mg/dl (8.6-10.3) L 02/13/24 19:[address] 02/13/24 18:15 CT SCAN OF THE CERVICAL SPINE CLINICAL HISTORY: Trauma. Fall. COMPARISON STUDY: No priors. TECHNIQUE: CT scan of the cervical spine is performed from the skull base to the upper thoracic spine. Images are reviewed in the axial, sagittal, and coronal planes. IV contrast was not administered for this examination. A dose lowering technique was utilized adhering to the principles of ALARA. CT DOSE: 1015.03 mGy.cm FINDINGS: Skeletal structures: The skeletal structures are osteopenia. There are acute spinous process fractures at C4 and C5. No additional acute fracture is seen involving the cervical spine. There remains spinous processes appear intact. There is no subluxation. Vertebral body height is maintained. There is minimal anterolisthesis at C4-C5 and C7-T1. Alignment is otherwise preserved. There is straightening of the cervical lordosis. Anterior osteophytes are seen throughout. The odontoid process and lateral masses are intact. The atlantoaxial articulation is preserved noting productive degenerative change. There is mild to moderate multilevel facet arthropathy. Intervertebral discs: There is severe disc space narrowing at C5-C6 with associated bony sclerosis. Moderate to severe narrowing is seen at C3-C4, C4-C5, and C6-C7. Central canal: Posterior disc osteophyte complexes at C4-C5, C5-C6, and C6-C7 may contribute to mild acquired compromise of the central canal. Soft tissues: The prevertebral and paraspinous soft tissues are within normal limits. The right thyroid lobe is enlarged and heterogeneous indicative of goiter. The left lobe is diminutive versus surgically absent. There is atherosclerotic calcification of the carotid bulbs. Pacemaker leads are noted at the left thoracic inlet. Calvarium: The visualized calvarium at the skull base appears intact. Brain parenchyma: Partially visualized brain parenchyma at the skull base is within normal limits. Sinuses and mastoids: The visualized paranasal sinuses are clear. The mastoid air cells are well pneumatized. Lung apices: Clear as visualized. IMPRESSION: 1. Acute spinous process fractures of C4 and C5. 2. No additional acute fracture is seen involving the cervical spine. There is no subluxation. 3. Osteopenia and spondylotic change as above. ACT 112: Negative or not required by law. Electronically signed by: Deepak Mckeon M.D. 02/13/2024 7:[address] 02/13/24 18:15 CT SCAN OF THE BRAIN WITHOUT IV CONTRAST CLINICAL HISTORY: Fall. COMPARISON STUDY: CT of the brain dated 02/10/2022. TECHNIQUE: Unenhanced axial CT scan of the brain is performed from the vertex to the skull base. A dose lowering technique was utilized adhering to the principles of ALARA. FINDINGS: Brain parenchyma: There is age-related involutional change noting moderate subcortical and periventricular microangiopathic disease. There is no hemorrhage, mass effect, or evidence of acute territorial ischemia by CT criteria. Marshall-white matter differentiation is preserved. No extra-axial fluid collection is seen. Ventricles, sulci, cisterns: Prominent secondary to involutional change. Intracranial vasculature: There is atherosclerotic calcification of the cavernous carotid arteries. Calvarium: The skeletal structures are osteopenic. No depressed fracture is seen. Sinuses and mastoids: The visualized paranasal sinuses are clear. The mastoid air cells are well pneumatized. Orbits: The bony orbits are grossly intact. There are bilateral ocular lens implants. IMPRESSION: There is no hemorrhage, mass effect, or evidence of acute territorial ischemia by CT criteria. ACT 112: Negative or not required by law. Electronically signed by: Deepak Mckeon M.D. 02/13/2024 7:43 PM Hip/Pelvis X-Ray 02/13/24 18:15 SINGLE VIEW PELVIS; 2 VIEWS RIGHT HIP CLINICAL HISTORY: Fall. FINDINGS: An AP supine view of the pelvis with AP and crosstable lateral views of the right hip are correlated with pelvic CT dated 10/16/2021. The skeletal structures are osteopenic. There is a comminuted, displaced, and angulated intertrochanteric fracture of the right proximal femur. There is medial displacement of the lesser trochanter. Overlying soft tissue edema is noted. No additional acute fracture is seen involving the left hip or the bony pelvis. M oderate arthritic change and joint space narrowing is seen in the hips. There is degenerative sclerosis of the sacroiliac joints and pubic symphysis. Lumbosacral spondylosis is partially imaged. Surgical clips project over the pelvis. IMPRESSION: Intertrochanteric fracture of the right proximal femur as above. Electronically signed by: Deepak Mckeon M.D. 02/13/2024 7:38 PM Chest X-Ray 02/13/24 18:16 SINGLE VIEW CHEST CLINICAL HISTORY: Fall. Hip fracture. FINDINGS: An AP, supine, upright chest radiograph is compared to study dated 05/26/2022. Correlation is made with chest CT dated 10/14/2021. A 2-lead cardiac pacemaker is unchanged in position. The heart is mildly enlarged noting atherosclerotic calcification of the thoracic aorta. The pulmonary vasculature is noncongested. Chronic interstitial thickening is similar to previous. Parenchymal scarring/fibrotic changes again seen in both lungs, similar to previous. No airspace consolidation or large pleural effusion is identified. No pneumothorax is seen. The skeletal structures are osteopenic. The bony thorax is grossly intact. IMPRESSION: 1. Cardiomegaly and cardiac pacemaker without radiographic evidence of congestive failure. 2. Chronic parenchymal changes as above with no airspace consolidation or large pleural effusion identified. ACT 112: Negative or not required by law. Electronically signed by: Deepak Mckeon M.D. 02/13/2024 7:40 PM Code Status & VTE Plan Code Status DNR/DNI VTE Prophylaxis Plan VTE Prophylaxis will be ordered: Yes PG Care Time/CCT Total # of Minutes Spent Total Time Spent with Patient: Total time spent is greater than 50% in coordination of care (as documented) at patient's floor/unit and/or counseling patient: Coding Level of Care Code 74708 INT INP/OBS CARE MIN Diagnoses Closed right hip fracture S72.001A Fracture of spinous process of cervical vertebra S12.9XXA C5 cervical fracture S12.400A C4 cervical fracture S12.300A Anticoagulant long-term use Z79.01 Cardiac pacemaker Z95.0 Tachy-roge syndrome I49.5 Paroxysmal atrial fibrillation I48.0 HTN (hypertension) I10
[2024-02-13] MEDS ORDERED: MAGNESIUM HYDROXIDE SUSP 30 ML UDC PO PRN (23:24)
[2024-02-13] MEDS ORDERED: bisacodyL 10 MG SUPP PR PRN (23:24)
[2024-02-13] MEDS ORDERED: ACETAMINOPHEN 1000 MG/100 ML IV IV PRN (23:24)
[2024-02-13] MEDS ORDERED: NALOXONE HCL 0.4 MG/1 ML VIAL/CARP IV PRN (23:24)
[2024-02-13] MEDS: ONDANSETRON INJ 2 MG/ML 2 ML VIAL ONE (23:47)
[2024-02-13] MEDS: HYDROmorphone INJ 0.5 MG/0.5 ML SYR IV PRN (23:48)
[2024-02-14 00:47] LABS: Partial Thromboplastin Ratio 0.9; Partial Thromboplastin Time 24 Seconds (21-31); Prothrombin Time 11.1 Seconds (9.0-12.0)
[2024-02-14] MEDS: PROMETHAZINE HCL 12.5 MG in SODIUM CHLORIDE 0.9% 50 ML IV STA (00:47)
[2024-02-14] MEDS: NSS + 20MEQ KCL 20 MEQ/1,000 ML BAG IV SCH (01:10)
[2024-02-14] MEDS: HEPARIN SODIUM/DEXTROSE 25,000 UNITS/500 ML BAG IV SCH (01:14)
[2024-02-14] MEDS: Heparin IV Adult Wt-Based Low-Dose *NO* INITIAL Bolus Protocol IV STA (01:16)
[2024-02-14] MEDS: HYDROmorphone INJ 0.5 MG/0.5 ML SYR IV PRN (02:52)
[2024-02-14] MEDS ORDERED: PROMETHAZINE HCL 12.5 MG in SODIUM CHLORIDE 0.9% 50 ML IV PRN (03:36)
[2024-02-14] MEDS: ACETAMINOPHEN 10MG/ML Custom 650 MG in EMPTY BAG 0 ML IV PRN (05:05)
[2024-02-14] MEDS ORDERED: LIDOCAINE 2% 2 ML VIAL/AMP(20MG/ML) INFIL ONE (07:20)
[2024-02-14] MEDS ORDERED: PROPOFOL IV EMULSION 10 MG/ML 20 ML VIAL IV ONE (07:20)
[2024-02-14] MEDS ORDERED: fentaNYL citrate PF 100 MCG/2 ML VIAL ONE (07:20)
--- NOTE | 2024-02-14 07:23 | Orthopedic Consultation ---
Date of Service February 14, 2024 Assessment & Plan (1) Closed right hip fracture: With regards to her hip, we discussed diagnosis and treatment options at bedside. I am recommending intramedullary nail fixation of the right hip. She understands the risk, benefits, and alternatives to procedures like to proceed. Time was spent scribing the procedure and postop expectations. I will call the family as well. She is currently NPO. We plan to do the procedure later this morning. (2) C4 cervical fracture: With regards to her cervical spine fracture, she can remove the hard collar. She is not having much pain. The fracture is stable. If she begins having more pain then we can place her back in the collar, but for now, I does not seem to be bothering her enough to keep her in a hard collar. History of Present Illness Reason for Consultation: Right intertrochanteric hip fracture with cervical spinous process fracture Requesting Physician: . Attending Physician: Kesha Brooks MD Lali is a pleasant 88-year-old female who lives in a house by herself. She is a community ambulator mostly with a cane. Unfortunately she fell yesterday injuring her right hip. She came to the emergency room where radiographs demonstrated a displaced right intertrochanteric hip fracture. She was admitted to the hospitalist service. Orthopedics was consulted to evaluate and treat. She does have a history of mild cervical pain. She has no acute exasperation of her cervical pain. Allergies Allergy/AdvReac Type Severity Reaction Status Date / Time verapamil Allergy Severe "THINGS Verified 02/13/24 22:37 STARTED TO SHUT DOWN-HEART, B/P TILL GOT TO ER". aspirin AdvReac Unknown GI UPSET, Verified 02/13/24 22:37 TAKES BABY ASA WITHOUT PROB Home Medications Medication Instructions Recorded Confirmed Type levothyroxine 25 mcg tablet 25 mcg PO QAM 07/03/18 02/13/24 History lorazepam 1 mg tablet 1 mg PO TID 07/03/18 02/13/24 History promethazine 25 mg tablet 25 mg PO Q4H PRN Nausea 07/03/18 02/13/24 History ykzrnaacad-orcdztwkoynyx-tmptifrk 1 tab PO Q4H PRN Headache 12/07/20 02/13/24 History 50 mg-325 mg-40 mg tablet potassium chloride 8 mEq 16 meq PO QAM 12/07/20 02/13/24 History tablet,extended release apixaban 2.5 mg tablet (Eliquis) 2.5 mg PO BID 30 days #60 tabs 10/20/21 02/13/24 Rx tramadol 50 mg tablet (Ultram) 50 mg PO Q6H PRN pain #30 tabs 03/04/22 02/13/24 Rx diltiazem HCl 240 mg 240 mg PO DAILY #30 caps 05/26/22 02/13/24 Rx capsule,extended release 24 hr (Cardizem CD) pantoprazole 20 mg tablet,delayed 40 mg PO QAM 05/27/22 02/13/24 History release (Protonix) metoprolol succinate 200 mg 200 mg PO DAILY #90 tabs 11/22/22 02/13/24 Rx tablet,extended release 24 hr escitalopram oxalate 5 mg tablet 5 mg PO DAILY 02/13/24 02/13/24 History Past Med/Surg History Medical History Hypokalemia Left-sided chest pain Asymptomatic bacteriuria Atrial fibrillation with rapid ventricular response Pacemaker lead malfunction Acute dehydration Hypomagnesemia Dysrhythmia Dizziness SVT (supraventricular tachycardia) Abnormal urinalysis Hypomagnesemia Hypokalemia Headache Paroxysmal atrial fibrillation History of pulmonary embolism Leukocytosis Partial small bowel obstruction Abdominal pain, epigastric Colostomy in place Trouble swallowing CERTAIN FOODS WILL STICK WHEN SWALLOWING Cerumen impaction Seasonal allergies Weight loss 30+ lb weight loss in lst 6 months Chronic back pain PAIN TO BOTH LEGS Osteoarthritis Depression Anxiety History of palpitations "skips beats" Hypertension Chronic nausea GERD (gastroesophageal reflux disease) Migraine Poor historian Pulmonary embolism 4-5 years ago - asymptomatic - incidental finding - treated w/ blood thinners x 6 months, cause? Lung nodules previously biopsied - benign Intractable nausea and vomiting Chest pain, rule out acute myocardial infarction Anorexia Abnormal EKG Pulmonary hypertension GERD (gastroesophageal reflux disease) Surgical History History of colonoscopy History of hernia repair History of Lloyd fundoplication Hx of thyroidectomy PARTIAL Nausea and vomiting after administration of anesthetic agent Hx of bladder repair surgery FOR SUPPORT History of surgery left elbow Hx of cholecystectomy Hx of tonsillectomy S/P ANKIT-BSO HX History of esophagogastroduodenoscopy (EGD) w/ dilatation History of colostomy 10 -12years - placed b/c of incontinence (cause??) History of bronchoscopy Family History Mother Hypertension Cancer Father Cancer Other No family history of adverse response to anesthesia No family history of bleeding disorder Social History Smoking Status: Unknown if ever smoked Second Hand Exposure: No; Do You Dip or Chew Tobacco: No; Hx Alcohol Use: No Hx Substance Use: No Preferred Language: Belarusian Communication Ability: Effective Bag Grader Required: No Beliefs That Will Affect Care: None marital status: / Current Living Situation: Alone How many Children do You have: 4 Feels Safe at Home: Yes Safety Concerns: Feels Safe At This Time Assistive Devices: Cane Review of Systems All systems reviewed & are unremarkable except as noted in HPI & below. Physical Exam On physical examination of her right hip, she has pain with logroll of her leg. Her right leg is shortened and externally rotated. Examination of her cervical spine shows no specific tenderness to palpation over the spinous processes. She has a little bit of soreness with full range of motion of her cervical spine but she states this is chronic.. Constitutional WD/WN, vitals as above Eyes PERRL, conjunctivae normal, anicteric sclerae ENMT external ear and nose normal, oropharynx normal Neck trachea midline, no thyromegaly Respiratory normal respiratory effort Cardiovascular RRR, no murmur, no edema Gastrointestinal (Abdomen) normal bowel sounds, soft, nontender, no hepatosplenomegaly Psychiatric A+Ox3, euthymic affect Results & Data Results & Data Laboratory Results . Diagnostic Findings X-rays of the right hip show a displaced right intertrochanteric hip fracture CT scan of the cervical spine shows nondisplaced fractures of the spinous process of C4 and C5.. PG Care Time/CCT Total # of Minutes Spent Total Time Spent with Patient: Total time spent is greater than 50% in coordination of care (as documented) at patient's floor/unit and/or counseling patient: Coding Level of Care Code 12736 IN/OBS CONSULT LVL 4,60M (57 - DECISION FOR SURGERY) Diagnoses Closed right hip fracture S72.001A C4 cervical fracture S12.300A
[2024-02-14] MEDS: LEVOTHYROXINE SODIUM 25 MCG TABLET PO SCH (07:36)
[2024-02-14 07:39] LABS: Basophils # (auto) 0.05 K/uL (0.00-0.20); Basophils % (auto) 0.3 %; Hemoglobin 9.5 g/dl (12.0-16.0); Immature Granulocytes # (auto) 0.16 K/uL (0.01-0.20); Immature Granulocytes % (auto) 0.9 %; Lymphocytes # (auto) 1.74 K/uL (1.20-3.40); Lymphocytes % (auto) 9.7 %; Mean Corpuscular Hemoglobin 32.2 pg (25.0-34.0); Mean Corpuscular Hgb Conc 31.7 g/dL (32.0-36.0); Mean Corpuscular Volume 101.7 fL (80.0-100.0); Mean Platelet Volume 9.2 fL (9.4-12.4); Monocytes # (auto) 1.53 K/uL (0.11-0.59); Monocytes % (auto) 8.5 %; Neutrophils # (auto) 14.52 K/uL (1.40-6.50); Neutrophils % (auto) 80.6 %; Platelet Count 218 K/uL (130-400); RDW Coefficient of Variation 13.1 % (11.5-14.5); RDW Standard Deviation 48.6 fL (36.4-46.3); Red Blood Count 2.95 M/uL (4.20-5.40)
[2024-02-14] MEDS: METOPROLOL TARTRATE 1 MG/ML VIAL IV SCH (07:40)
[2024-02-14 08:00] LABS: Albumin Level 3.4 gm/dl (3.4-5.0); BUN Creatinine Ratio 14.1 (10-20); Calcium 7.8 mg/dl (8.6-10.3); Creatinine Clr Calc Pharmacy 17.8 ml/min; Est GFR (African American) 32.7 ml/min; Est GFR (Non-African American) 28.2 ml/min; Magnesium 1.5 mg/dl (1.7-2.4); Phosphorus 4.2 mg/dl (2.5-4.9); Potassium 5.4 mmol/L (3.5-5.1)
[2024-02-14 08:09] LABS: ANTI-Xa, UFH(UnfractionatedHep 0.77 IU/ml (0.3-0.7)
[2024-02-14] MEDS: ACETAMINOPHEN 1000 MG/100 ML IV IV ONE (09:09)
--- NOTE | 2024-02-14 09:31 | Anesthesiology Consultation ---
Date of Service February 14, 2024 Assessment & Plan Chart Review Chart Review: Acceptable Risk for Surgery and Patient NOT seen in Pre Admission Testing Consults Requested none ASA ASA3 Proposed Anesthesia Anesthesia Type: General Risk / Benefits Reviewed With: PT / POA / Parent / Guardian, Accepts Plan and Informed Consent Obtained History Surgery Operation Date: 02/14/24 12:30 Proposed Procedures p Intramedullary Dave Femur(Right) - Tab Freitas, Height/Weight Height: 5 ft Weight: 47.2 kg Allergies Allergy/AdvReac Type Severity Reaction Status Date / Time verapamil Allergy Severe "THINGS Verified 02/13/24 22:37 STARTED TO SHUT DOWN-HEART, B/P TILL GOT TO ER". aspirin AdvReac Unknown GI UPSET, Verified 02/13/24 22:37 TAKES BABY ASA WITHOUT PROB Medications Home Medications Medication Instructions Recorded Confirmed Last Taken levothyroxine 25 mcg tablet 25 mcg PO QAM 07/03/18 02/13/24 02/10/22 lorazepam 1 mg tablet 1 mg PO TID 07/03/18 02/13/24 02/10/22 promethazine 25 mg tablet 25 mg PO Q4H PRN Nausea 07/03/18 02/13/24 02/10/22 gnlyptgvop-lgbryupxdficv-xmwwyhag 1 tab PO Q4H PRN Headache 12/07/20 02/13/24 02/10/22 50 mg-325 mg-40 mg tablet potassium chloride 8 mEq 16 meq PO QAM 12/07/20 02/13/24 02/10/22 tablet,extended release apixaban 2.5 mg tablet (Eliquis) 2.5 mg PO BID 30 days #60 tabs 10/20/21 02/13/24 02/10/22 tramadol 50 mg tablet (Ultram) 50 mg PO Q6H PRN pain #30 tabs 03/04/22 02/13/24 Unknown diltiazem HCl 240 mg 240 mg PO DAILY #30 caps 05/26/22 02/13/24 Unknown capsule,extended release 24 hr (Cardizem CD) pantoprazole 20 mg tablet,delayed 40 mg PO QAM 05/27/22 02/13/24 Unknown release (Protonix) metoprolol succinate 200 mg 200 mg PO DAILY #90 tabs 11/22/22 02/13/24 Unknown tablet,extended release 24 hr escitalopram oxalate 5 mg tablet 5 mg PO DAILY 02/13/24 02/13/24 Unknown Active Medications Generic Name Dose Route Start Last Admin Trade Name Freq PRN Reason Stop Dose Admin Hydromorphone HCl 0.25 mg 02/13/24 23:24 02/13/24 23:48 Hydromorphone Inj 0.5 Mg/0.5 Ml Syr IV 02/27/24 23:23 0.25 mg Q3H PRN Administration Pain (1,2,3,4,5) & Pre PT Hydromorphone HCl 0.5 mg 02/13/24 23:24 02/14/24 07:43 Hydromorphone Inj 0.5 Mg/0.5 Ml Syr IV 02/27/24 23:23 0.5 mg Q3H PRN Administration Pain (6,7,8,9,10) Potassium Chloride/Sodium Chloride 20 meq in 1,000 mls @ 80 mls/hr 02/13/24 23:24 02/14/24 01:10 Normal Saline W/20 Meq Kcl IV 03/14/24 23:23 80 mls/hr .[id number] USMAN Administration Protocol Acetaminophen 650 mg/ EMPTY 65 mls @ 400 mls/hr 02/14/24 00:33 02/14/24 05:57 BAG IV 03/15/24 00:32 Infused Q8H PRN Infusion Pain/Fever Protocol Levothyroxine Sodium 25 mcg 02/14/24 06:30 02/14/24 07:36 Levothyroxine Sodium 25 Mcg Tablet PO 03/15/24 06:29 25 mcg DAILYBB USMAN Administration Metoprolol Tartrate 2.5 mg 02/14/24 08:00 02/14/24 07:40 Metoprolol Tartrate 1 Mg/Ml Vial IV 03/15/24 07:59 2.5 mg Q4H USMAN Administration Past Medical History Medical History Hypokalemia Left-sided chest pain Asymptomatic bacteriuria Atrial fibrillation with rapid ventricular response Pacemaker lead malfunction Acute dehydration Hypomagnesemia Dysrhythmia Dizziness SVT (supraventricular tachycardia) Abnormal urinalysis Hypomagnesemia Hypokalemia Headache Paroxysmal atrial fibrillation History of pulmonary embolism Leukocytosis Partial small bowel obstruction Abdominal pain, epigastric Colostomy in place Trouble swallowing CERTAIN FOODS WILL STICK WHEN SWALLOWING Cerumen impaction Seasonal allergies Weight loss 30+ lb weight loss in lst 6 months Chronic back pain PAIN TO BOTH LEGS Osteoarthritis Depression Anxiety History of palpitations "skips beats" Hypertension Chronic nausea GERD (gastroesophageal reflux disease) Migraine Poor historian Pulmonary embolism 4-5 years ago - asymptomatic - incidental finding - treated w/ blood thinners x 6 months, cause? Lung nodules previously biopsied - benign Intractable nausea and vomiting Chest pain, rule out acute myocardial infarction Anorexia Abnormal EKG Pulmonary hypertension GERD (gastroesophageal reflux disease) Past Family History Family History Mother Hypertension Cancer Father Cancer Other No family history of adverse response to anesthesia No family history of bleeding disorder Past Surgical History Surgical History History of colonoscopy History of hernia repair History of Lloyd fundoplication Hx of thyroidectomy PARTIAL Nausea and vomiting after administration of anesthetic agent Hx of bladder repair surgery FOR SUPPORT History of surgery left elbow Hx of cholecystectomy Hx of tonsillectomy S/P ANKIT-BSO HX History of esophagogastroduodenoscopy (EGD) w/ dilatation History of colostomy 10 -12years - placed b/c of incontinence (cause??) History of bronchoscopy Social History Smoking Status: Unknown if ever smoked Do You Dip or Chew Tobacco: No Hx Alcohol Use: No Alcohol type: wine alcohol intake frequency: holidays/special occasions only Hx Substance Use: No substance use type: does not use Review of Systems ROS Unobtainable: All systems reviewed & are unremarkable except as noted in HPI & below Physical Exam Vital Signs Last Vital Signs Temp 36.6 C 02/14/24 07:15 Pulse 60 02/14/24 08:45 Resp 17 02/14/24 07:15 BP 158/84 H 02/14/24 07:15 Pulse Ox 97 02/14/24 07:15 O2 Del Method Room Air 02/14/24 07:15 Testing Laboratory Results 02/14/24 07:16 02/14/24 07:16 PT 11.1 Seconds (9.0-12.0) 02/13/24 19:52 INR 1.0 (0.9-1.1) 02/13/24 19:52 APTT 24 Seconds (21-31) 02/13/24 19:52 Electrocardiogram Findings: no AFIB @ Echocardiogram Date: 02/12/22 EF: 65-70 LV Function: normal mod TR
[2024-02-14] MEDS ORDERED: ePHEDrine sulfate 50 MG/ML AMP IV PRN (09:33)
[2024-02-14] MEDS ORDERED: ATROPINE SULFATE 0.1 MG/ML 10ML SYR IV PRN (09:33)
[2024-02-14] MEDS ORDERED: fentaNYL citrate PF 100 MCG/2 ML VIAL IV PRN (09:33)
[2024-02-14] MEDS ORDERED: ONDANSETRON INJ 2 MG/ML 2 ML VIAL IV PRN (09:33)
[2024-02-14] MEDS: ceFAZolin 2000MG 2,000 MG/15 ML SYR IV ONE (10:00)
[2024-02-14] MEDS ORDERED: ceFAZolin 330 MG/ML 1 GM VIAL ONE (10:03)
[2024-02-14] MEDS ORDERED: ROCURONIUM BROMIDE 10 MG/ML 5 ML VIAL IV ONE (10:03)
[2024-02-14] MEDS ORDERED: DEXAMETHASONE SOD INJ 4 MG/ML VIAL ONE (10:04)
[2024-02-14] MEDS ORDERED: PHENYLEPHRINE HCL 10 MG/ML VIAL ONE (10:04)
[2024-02-14] MEDS ORDERED: ONDANSETRON INJ 2 MG/ML 2 ML VIAL ONE (10:04)
[2024-02-14] MEDS ORDERED: SUGAMMADEX SODIUM 200 MG/2 ML VIAL IV ONE (10:32)
[2024-02-14] MEDS: BUPIVACAINE/EPINEPHRINE 0.25% 1:200,000 30 ML VIAL ONE (10:36)
--- NOTE | 2024-02-14 10:54 | Operative Report ---
PG Post Operative Report Pre & Post Diagnosis Operation Date: 02/14/24 12:30 Pre-Op Diagnosis: Displaced right intertrochanteric hip fracture Post-Op Diagnosis: Displaced right intertrochanteric hip fracture I identified the patient and participated in the time-out.: Yes Procedure Operation Date: 02/14/24 12:30 Actual Procedures p Intramedullary Dave Femur, Right Hip(Right) - Tab Freitas DO Surgeon Tab Freitas DO Radio Dispatcher Diaz Espinosa PA-C Estimated Blood Loss 50 Findings Consistent with Post-Op Diagnosis Specimens None Description of Procedure On February 14, 2024 Lali was brought down from her hospital room to the preoperative holding area. The operative extremity identified and signed. She was given a preoperative antibiotic. She was taken back to the operating room and put under general anesthesia. She was then transferred to the fracture table. The right leg was brought out to traction. Fluoroscopic images confirmed reduction of the fracture. The right hip was then prepped and draped sterile fashion. A timeout was done. The patient and the operative extremity was properly identified. A longitudinal incision was made just superior to the greater trochanter. Dissection was taken down through the fascia. A guidepin was placed at the tip of the greater trochanter and advanced into the femoral canal. Appropriate placement was checked on fluoroscopy. A 16 mm opening reamer was then used to open the femoral canal. A Synthes 10 mm short TFN nail was then impacted into place. Appropriate placement was checked on fluoroscopy. A small lateral incision was made for advancement of the cannula for the helical blade. The cannula was then advanced to the lateral cortex. A guidepin was placed into the center center position of the femoral head. The helical blade measured to be 80 mm. The helical blade was then drilled and the final helical blade was then impacted into place. The fracture was compressed and the helical blade was locked statically. A distal locking screw was then placed. Final fluoroscopic images showed complete reduction of the fracture and good alignment of the hardware. The wounds were then irrigated. The fascia was closed with #1 Vicryl. Deep layers were closed with 2-0 Vicryl. Skin was closed with 3-0 Vicryl and orlin. She was then placed in soft dressings. She was then transferred back to a hospital bed. She was taken to the postanesthesia care unit in stable condition. She tolerated the procedure well. Diaz Espinosa PA-C, was present for the entire procedure. He was critical for patient positioning, prepping, draping, retraction exposure, wound closure and application of sterile dressing. I attest to the content of the Intraoperative Record and any orders documented therein. Any exceptions are noted below. I attest to the content of the Intraoperative Record and any orders documented therein. Any exceptions are noted below.
--- NOTE | 2024-02-14 11:28 | Fluoroscopy Report ---
INTRAOPERATIVE RADIOGRAPHS CLINICAL HISTORY: Open reduction and internal fixation of a right femoral fracture. Fluoro time: 64 seconds Ka,r: 10.84 mGy FINDINGS: 4 spot fluoroscopic views of the right hip are correlated with radiographs dated 02/13/2024. There has been intertrochanteric and intramedullary nail fixation of an intertrochanteric fracture of the right proximal femur. Near-anatomic alignment is respiratory. A single cortical lag screw transf ixes the distal end of the intramedullary nail. There is persistent medial displacement of the lesser trochanter. Overlying soft tissue edema is noted. IMPRESSION: Intraoperative images from open reduction and internal fixation of a proximal right femor al fracture as above. Electronically signed by: Deepak Mckeon M.D. 02/14/2024 11:27 AM
--- NOTE | 2024-02-14 11:29 | Anesthesiology Progress Note ---
Date of Service February 14, 2024 Anesthesia Post Procedure Vital Signs Vital Signs: Temp Pulse Pulse Pulse Resp BP BP 02/14/24 11:20 64 15 149/89 H 02/14/24 11:10 62 14 164/78 H 02/14/24 11:00 36 C L 62 20 142/51 H 02/14/24 08:45 60 02/14/24 07:40 82 02/14/24 07:15 36.6 C 57 L 17 158/84 H 02/14/24 07:00 02/14/24 03:24 36.4 C L 61 22 146/76 H 02/14/24 00:35 36.6 C 60 20 148/80 H 02/13/24 23:50 62 02/13/24 23:24 36.6 C 60 20 02/13/24 22:00 60 18 02/13/24 21:56 61 02/13/24 21:00 60 18 02/13/24 20:05 61 122/77 02/13/24 19:45 60 12 02/13/24 18:47 60 179/104 H 02/13/24 18:07 70 02/13/24 18:06 37.2 C 68 18 228/107 H BP Pulse Ox O2 Del Method O2 Flow Rate 02/14/24 11:20 96 Room Air 02/14/24 11:10 100 Oxymask 4 02/14/24 11:00 100 Oxymask 6 02/14/24 08:45 02/14/24 07:40 02/14/24 07:15 97 Room Air 02/14/24 07:00 Room Air 02/14/24 03:24 97 Room Air 02/14/24 00:35 97 Room Air 02/13/24 23:50 02/13/24 23:24 148/80 H 97 Room Air 02/13/24 22:00 106/63 97 Room Air 02/13/24 21:56 02/13/24 21:00 97/55 L 96 Room Air 02/13/24 20:05 02/13/24 19:45 118/73 95 Room Air 02/13/24 18:47 02/13/24 18:07 02/13/24 18:06 98 Room Air Pain Intensity Right Hip: Pain Intensity: 9 Transfer of Care Handoff Completed per policy Notes Mental Status: alert / awake / arousable Patient Amnestic to Procedure: Yes Nausea / Vomiting: adequately controlled Pain: adequately controlled Airway Patency, RR, SpO2: stable & adequate BP & HR: stable & adequate Hydration State: stable & adequate Anesthetic Complications: no major complications apparent and Pt Satisfied with anesthetic care
[2024-02-14] MEDS ORDERED: traMADol HCL 50 MG TABLET PO PRN (11:53)
[2024-02-14] MEDS: PANTOprazole 40 MG in SYRINGE 0 ML IV SCH (12:13)
[2024-02-14] MEDS: ONDANSETRON INJ 2 MG/ML 2 ML VIAL IV PRN (15:06)
--- NOTE | 2024-02-14 16:16 | Hospitalist Progress Note ---
Date of Service February 14, 2024 Assessment & Plan (1) Closed right hip fracture: Plan: 88 y/o with PAF on apixaban admitted with pathologic osteoporotic right hip fracture after ground level mechanical fall Operation Date: 02/14/24 12:30 Actual Procedures p Intramedullary Dave Femur, Right Hip(Right) - Tab Freitas, DO -postop care per orthopedic surgery -PT/OT Acute blood loss anemia related to fracture - AM CBC Leukocytosis - likely related to fracture, recieved dexamethasone during surgery - AM CBC, monitor for infectious s/sx Osteoporosis - Ca/Vit D, check Vit D level, enquire whether on bisphosphonate in past (2) Fracture of spinous process of cervical vertebra: Plan: fracture of C4/C5 spinous processes orthopedics evaluated, this is a stable fracture, c-collar not needed unless it improves pain (3) Acute kidney injury superimposed on CKD: Plan: 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 - resume if blood pressure adequate Plan benzodiazepine dependence - has outpatient rx for lorazepam 1 mg tid, reviewed PDMP, recently filled. Ordered 1 mg bid to prevent withdrawal. Recommend tapering this medication. Associated with falls and delirium in elderly hypertension - meds as above hypothyroidismresume levothyroxine chronic back and leg pain- has outpatient Rx for tramadol history of incidental pulmonary embolism pulmonary hypertension colostomy PT/OT evals anticipate rehab stay DVT ppx: resuming apixaban Admission and Anticipated Discharge Date Admission Date: February 13, 2024 Subjective seen immediately postop, she has no shortness of breath or chest pain, no abdominal pain or nausea, right hip is not currently painful Physical Exam 2 Physical Exam: PHYSICAL EXAMINATION Last 24h vital signs reviewed, see documentation in flowsheet General: comfortable appearing, no distress, lying flat in bed HEENT: Normocephalic, atraumatic, pupils round and equal, sclerae anicteric, no conjunctival injection, moist mucus membranes Lungs: Normal respiratory effort. Clear to auscultation bilaterally. No RRW Heart: Regular rate and rhythm, no murmurs. No JVD Abdomen: Soft, nontender, nondistended. Bowel sounds present. Extremities: Warm, dry, well-perfused. No extremity edema. right hip incision covered with surgical dressing, clean dry and intact no erythema no drainage Neuro: Alert but still a little sleepy postop, face symmetric, moving extremities equally Psych: Normal affect and behavior Results & Data Results & Data Vital Signs (Past 12 Hours) Vital Signs Temp Pulse Pulse Pulse Resp BP Pulse Ox 02/14/24 15:34 37.1 C 76 18 100/47 L 92 02/14/24 14:49 36.7 C 60 20 119/72 02/14/24 14:23 81 18 117/64 02/14/24 13:23 36.7 C 60 20 119/60 97 02/14/24 12:39 60 02/14/24 12:23 36.5 C 60 17 102/54 L 99 02/14/24 12:16 73 02/14/24 11:53 36.6 C 72 17 132/71 96 02/14/24 11:45 71 14 122/62 93 02/14/24 11:30 36.5 C 67 18 135/70 96 02/14/24 11:20 64 15 149/89 H 96 02/14/24 11:10 62 14 164/78 H 100 02/14/24 11:00 36 C L 62 20 142/51 H 100 02/14/24 08:45 60 02/14/24 07:40 82 02/14/24 07:15 36.6 C 57 L 17 158/84 H 97 02/14/24 07:00 O2 Del Method O2 Flow Rate 02/14/24 15:34 Room Air 02/14/24 14:49 Nasal Cannula 02/14/24 14:23 Room Air 02/14/24 13:23 Room Air 02/14/24 12:39 02/14/24 12:23 Room Air 02/14/24 12:16 02/14/24 11:53 Room Air 02/14/24 11:45 Room Air 02/14/24 11:30 Room Air 02/14/24 11:20 Room Air 02/14/24 11:10 Oxymask 4 02/14/24 11:00 Oxymask 6 02/14/24 08:45 02/14/24 07:40 02/14/24 07:15 Room Air 02/14/24 07:00 Room Air Laboratory Results 02/14/24 07:16 02/14/24 07:16 PG Care Time/CCT Total # of Minutes Spent Total Time Spent with Patient: Total time spent is greater than 50% in coordination of care (as documented) at patient's floor/unit and/or counseling patient: Coding Level of Care Code 20916 SUB INP/OBS CARE 350MIN Diagnoses Closed right hip fracture S72.001A Fracture of spinous process of cervical vertebra S12.9XXA Acute kidney injury superimposed on CKD N17.9; N18.9 Paroxysmal atrial fibrillation I48.0
[2024-02-14] MEDS: ceFAZolin 1000MG 1,000 MG/7.5 ML SYR IV SCH (17:26)
[2024-02-14 17:31] LABS: BUN Creatinine Ratio 13.1 (10-20); Calcium 7.9 mg/dl (8.6-10.3); Creatinine Clr Calc Pharmacy 14.6 ml/min; Est GFR (African American) 25.9 ml/min; Est GFR (Non-African American) 22.3 ml/min
[2024-02-14] MEDS: PROCHLORPERAZINE 5 MG in SYRINGE 4 ML IV PRN (18:26)
[2024-02-14] MEDS: SODIUM CHLORIDE 0.45 % 1,000 ML IV SCH (18:34)
--- NOTE | 2024-02-14 18:46 | Communication Note ---
Date of Service: February 14, 2024 K 5.4 this AM I thought probably related to heparin drip which was stopped. Ordered afternoon BMP: Labs review - hyperkalemic at 6 and JESS with increasing Cr. Making urine but UOP a little low this afternoon. IVF with potassium were stopped earlier today. Unfortunately has had nausea/vomiting so unclear whether she can tolerate lokelma -ordered q4h potassium checks (10pm, 2am, AM labs) -insulin 5u IV and D50 with BG check in 1 hour then q2h x 4 -500 mL IV NS and lasix 40 mg IV x 1 -try lokelma if she can tolerate -reviewed meds nothing nephrotoxic but might have had one dose of toradol in ED. Not on GENARO/ARB at home but on potassium supplement. -discussed with bedside RN, will sign out to bottle dealer
[2024-02-14] MEDS: SODIUM CHLORIDE 0.9% 500 ML IV SCH (18:47)
[2024-02-14] MEDS: DEXTROSE 50% 50 ML SYRINGE IV ONE (18:47)
[2024-02-14] MEDS: FUROSEMIDE 40 MG/4 ML VIAL IV ONE (18:49)
[2024-02-14] MEDS: INSULIN HUMAN REGULAR PER UNIT 5 UNITS in SYRINGE 4.95 ML IV STA (18:52)
[2024-02-14] MEDS: SODIUM ZIRCONIUM CYCLOSILICATE 10 GM PACKET PO SCH (18:53)
[2024-02-14 20:18] LABS: Calcium 7.6 mg/dl (8.6-10.3); Potassium 5.4 mmol/L (3.5-5.1)
[2024-02-14 20:24] LABS: BUN Creatinine Ratio 14.6 (10-20); Creatinine Clr Calc Pharmacy 14.6 ml/min; Est GFR (African American) 25.9 ml/min; Est GFR (Non-African American) 22.3 ml/min
[2024-02-14] MEDS: LORazepam 1 MG TAB PO SCH (20:54)
[2024-02-14] MEDS ORDERED: LORazepam 1 MG TAB PO SCH (21:00)
[2024-02-15 02:10] LABS: Basophils # (auto) 0.03 K/uL (0.00-0.20); Basophils % (auto) 0.2 %; Hematocrit (blood only) 22.2 % (37.0-47.0); Hemoglobin 7.1 g/dl (12.0-16.0); Immature Granulocytes % (auto) 2.2 %; Lymphocytes % (auto) 12.3 %; Mean Corpuscular Hemoglobin 32.6 pg (25.0-34.0); Mean Corpuscular Volume 101.8 fL (80.0-100.0); Mean Platelet Volume 9.4 fL (9.4-12.4); Monocytes # (auto) 2.06 K/uL (0.11-0.59); Monocytes % (auto) 11.5 %; Neutrophils # (auto) 13.23 K/uL (1.40-6.50); Neutrophils % (auto) 73.8 %; Platelet Count 206 K/uL (130-400); RDW Coefficient of Variation 13.2 % (11.5-14.5); RDW Standard Deviation 49.1 fL (36.4-46.3); Red Blood Count 2.18 M/uL (4.20-5.40); White Blood Count 17.92 K/ul (4.8-10.8)
[2024-02-15 02:29] LABS: Albumin Level 2.9 gm/dl (3.4-5.0); BUN Creatinine Ratio 13.7 (10-20); Calcium 7.3 mg/dl (8.6-10.3); Creatinine Clr Calc Pharmacy 14.2 ml/min; Est GFR (Non-African American) 21.5 ml/min; Magnesium 1.3 mg/dl (1.7-2.4); Phosphorus 3.5 mg/dl (2.5-4.9); Potassium 4.8 mmol/L (3.5-5.1)
[2024-02-15] MEDS: METOPROLOL TARTRATE 1 MG/ML VIAL IV STA (02:30)
[2024-02-15] MEDS ORDERED: SODIUM CHLORIDE 0.9% 250 ML IV PRN (03:00)
[2024-02-15 03:01] LABS: RBC Morphology Unremarkable
[2024-02-15] MEDS: MAGNESIUM SULFATE / D5W 1 GM/100 ML BAG IV SCH (03:01)
--- NOTE | 2024-02-15 06:24 | Communication Note ---
Date of Service: February 15, 2024 Called to bedside, patient's hemoglobin dropped to 7.1 down from 11.0 on 02/12. No blood in the stool, no vomiting blood. No signs of bleeding. Will transfuse 2 units of blood and recheck hemoglobin. Orthopedics aware, no additional input.
[2024-02-15] MEDS: APIXABAN 2.5 MG TAB PO SCH (08:30)
[2024-02-15] MEDS: ESCITALOPRAM OXALATE 10 MG TAB PO SCH (08:31)
[2024-02-15] MEDS: dilTIAZem HCL 240 MG CAPCR PO SCH (08:32)
[2024-02-15] MEDS: PANTOprazole 40 MG TAB PO SCH (08:33)
[2024-02-15] MEDS: METOPROLOL SUCC 50MG EXT REL TAB PO SCH (09:08)
--- NOTE | 2024-02-15 09:13 | Orthopedic Progress Note ---
Date of Service February 15, 2024 Assessment & Plan (1) Closed right hip fracture: Overall she is doing about as well as expected. She is currently receiving some blood for some postoperative anemia. She is not having too much pain in the hip. She is mildly confused and seems fatigued. She may receive therapy today, however, given the blood transfusion they may hold off. That would be okay. We can resume physical therapy tomorrow. She is on Eliquis for DVT prophylaxis. She is orthopedically stable for discharge when medically ready. Full orthopedic discharge instructions were placed in the discharge summary. She will follow-up with orthopedics in 2 weeks. Cira Escalera was seen and examined at bedside this morning. She seems to be doing okay. She is having some soreness in the hip but is not too bad. She was anemic overnight and she was started with 2 L of blood. She is receiving that now. She has no new complaints.. Review of Systems All systems reviewed & are unremarkable except as noted in HPI & below. Physical Exam On physical examination of the right hip, the dressings are clean and dry. She has active motion of her foot.. Results & Data Results & Data Laboratory Results . Diagnostic Findings . PG Care Time/CCT Total # of Minutes Spent Total Time Spent with Patient: Total time spent is greater than 50% in coordination of care (as documented) at patient's floor/unit and/or counseling patient: Coding Level of Care Code 95654 Post Operative Follow-Up Diagnoses Closed right hip fracture S72.001A
--- NOTE | 2024-02-15 14:34 | Hospitalist Progress Note ---
Date of Service February 15, 2024 Assessment & Plan (1) Closed right hip fracture: Plan: 88 y/o with PAF on apixaban admitted with pathologic osteoporotic right hip fracture after ground level mechanical fall Operation Date: 02/14/24 12:30 Actual Procedures p Intramedullary Dave Femur, Right Hip(Right) - Tab Freitas, DO -postop care per orthopedic surgery -Has some postoperative delirium, stopped IV hydromorphone, added low-dose oral oxycodone for severe pain, tramadol for moderate pain, scheduled acetaminophen -PT/OT Acute blood loss anemia related to fracture -transfusing 2 units this morning, a.m. CBC Leukocytosis - likely related to fracture, received dexamethasone during surgery so white blood count remains elevated today- AM CBC, monitor for infectious s/sx Osteoporosis - Ca/Vit D, vitamin D level normal, follow-up in primary care (2) Fracture of spinous process of cervical vertebra: Plan: fracture of C4/C5 spinous processes orthopedics evaluated, this is a stable fracture, c-collar not needed unless it improves pain (3) Acute kidney injury superimposed on CKD: Plan: JESS on CKD-3 - probably prerenal currently has quiles -monitor Cr and UOP -Hyperkalemia 02/13 resolved with treatment, 4.8 this morning -Creatinine remains elevated at 2 however this is only a small percentage change in GFR from her baseline, assess response to transfusion if not improving tomorrow continue further workup -AM BMP (4) Paroxysmal atrial fibrillation: Plan: 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 Ordered 1 mg bid to prevent withdrawal. Recommend tapering this medication. Associated with falls and delirium in elderly Chronic nauseahad exacerbation yesterday evening required IV antiemetics. Eating today. Resumed oral as needed Phenergan which is her home medication, continue IV ondansetron as needed hypertension - meds as above hypothyroidismresumed levothyroxine chronic back and leg pain- has outpatient Rx for tramadol history of incidental pulmonary embolism pulmonary hypertension colostomy PT/OT evals anticipate rehab stay [facility] DVT ppx: apixaban I updated her daughter at bedside 02/14 Admission and Anticipated Discharge Date Admission Date: February 13, 2024 Subjective Doing better today right hip remains painful postoperatively has been getting blood transfusion all morning no shortness of breath no chest pain her daughter is in the room with her reports she is much more confused than usual although she does have underlying dementia and has forgetfulness at baseline Physical Exam 2 Physical Exam: PHYSICAL EXAMINATION Last 24h vital signs reviewed, see documentation in flowsheet General: comfortable appearing, no distress, lying flat in bed HEENT: Normocephalic, atraumatic, pupils round and equal, sclerae anicteric, no conjunctival injection, moist mucus membranes Lungs: Normal respiratory effort. Clear to auscultation bilaterally. No RRW Heart: Regular rate and rhythm, no murmurs. No JVD Abdomen: Soft, nontender, nondistended. Bowel sounds present. Extremities: Warm, dry, well-perfused. No extremity edema. right hip incision covered with surgical dressing, clean dry and intact no erythema no drainage Neuro: Alert awake and talkative, oriented to self hospital and basic situation but is confused, face symmetric, moving extremities equally Psych: Normal affect and behavior Results & Data Results & Data Vital Signs (Past 12 Hours) Vital Signs Temp Pulse Pulse Resp BP BP Pulse Ox 02/15/24 11:55 37.3 C 110 H 19 129/65 95 02/15/24 11:28 36.9 C 101 H 20 114/70 95 02/15/24 10:28 36.5 C 108 H 20 118/83 98 02/15/24 09:58 36.4 C L 105 H 20 139/98 99 02/15/24 09:43 36.6 C 113 H 20 139/80 97 02/15/24 09:21 36.7 C 125 H 18 129/84 95 02/15/24 07:30 37.0 C 115 H 25 H 126/78 96 02/15/24 06:46 37.1 C 124 H 18 149/85 H 02/15/24 06:34 37.1 C 114 H 18 114/70 99 02/15/24 06:25 112 H 119/69 02/15/24 05:46 36.9 C 112 H 20 119/69 96 02/15/24 05:29 122 H 110/74 02/15/24 05:17 139 H 105/66 02/15/24 05:16 36.9 C 122 H 18 110/74 96 02/15/24 05:01 37.8 C H 117 H 20 113/61 91 02/15/24 04:36 36.8 C 139 H 18 105/66 94 02/15/24 02:30 106 H 133/79 O2 Del Method 02/15/24 11:55 Room Air 02/15/24 11:28 02/15/24 10:28 02/15/24 09:58 02/15/24 09:43 02/15/24 09:21 02/15/24 07:30 Room Air 02/15/24 06:46 02/15/24 06:34 02/15/24 06:25 02/15/24 05:46 02/15/24 05:29 02/15/24 05:17 02/15/24 05:16 02/15/24 05:01 02/15/24 04:36 02/15/24 02:30 Laboratory Results 02/15/24 01:58 02/15/24 01:58 PG Care Time/CCT Total # of Minutes Spent Total Time Spent with Patient: Total time spent is greater than 50% in coordination of care (as documented) at patient's floor/unit and/or counseling patient: Coding Level of Care Code 44979 SUB INP/OBS CARE 2/35MIN Diagnoses Closed right hip fracture S72.001A Fracture of spinous process of cervical vertebra S12.9XXA Acute kidney injury superimposed on CKD N17.9; N18.9 Paroxysmal atrial fibrillation I48.0
[2024-02-15] MEDS: ACETAMINOPHEN 325 MG TAB PO SCH (16:52)
--- OUTSIDE RECORDS SUMMARY | 2024-02-15 21:33 | External Medical Summary | Summary of Care ---
Author Name Unknown Organization [facility] Address [address] [place] [address] Phone [phone] Care Team Providers Care Transport Tech Name Role Phone Twila Denton MD Primary Care Provider + [phone] Reason for Referral * Evaluate & Treat - Unlimited Visits (Within 30 days (routine)) - Authorized Specialty Diagnoses / Procedures Referred By Contac t Referred To Contact Gastroenterology Diagnoses Stricture esophagus Twila Denton MD [address] [place] [address] Referral ID Status Reason Start Date Expiration Date Visits Requested Visits Authorized [id number] Authorized Specialty Services Required 01/23/[phone] Question Answer Referral Priority Within 30 days (routine) Where should this appointment be scheduled? [facility] For what condition is the patient being referred? All Gastro Conditions Encounter Details Date Type Department Care Team ([facility] st Contact Info) Description 01/23/2024 Orders Only Access Center, [place] [address] [facility] *DO NOT REMOVE THIS DEPARTMENT* [place], [place] [id number] Request, External Referral Stricture esophagus* Allergies Active Allergy Reactions Criticality Noted Date Comments Verapamil High 10/04/2016 Other reaction(s): "THINGS STARTED TO SHUT DOWN-HEART, B/P TILL GOT TO ER". documented as of this encounter (statuses as of 01/23/2024) Medications Medication Sig Dispensed Refills Start Date End Date Status LORAZEPAM 1 MG PO TABS three times daily as needed 0 06/06/2014 Active AMLODIPINE BESYLATE 5 MG PO TABS 1 TABLET DAILY 0 06/06/2014 Active OCUVITE PO TABS daily 0 06/06/2014 Active LEVOTHYROXINE SODIUM 25 MCG PO CAPS 1 CAPSULE DAILY 0 06/06/2014 Activ e DIGESTIVE ENZYME PO CAPS daily 0 06/06/2014 Active IMODIUM A-D 2 MG PO TABS 1 TABLET NEEDED 0 06/06/2014 Active B-12 1000 MCG PO LOZG daily 0 06/06/2014 Act leena EQL VITAMIN D3 1000 UNITS PO TABS 1 TABLET DAILY 0 06/06/2014 Active POTASSIUM GLUCONATE 595 MG PO CAPS daily 0 06/06/2014 Active CLARITIN 10 MG PO CAPS 1 CAPSULE DAILY 0 06/06/2014 Active NORTRIPTYLINE HCL 10 MG PO CAPSIndications:Mixed headache 3 tabs daily 90 Cap 3 08/24/2014 Active Eliquis 2.5 MG Oral Tablet 0 12/23/2022 Active Vhzydzbeyo-SAZQ-Vjosjs ne 50-325-40 MG Oral Tablet (Fioricet) 0 12/23/2022 Active dilTIAZem HCl ER 240 MG Oral Capsule Extended Release 24 Hour 1 Capsule. 0 05/26/2022 Active Metoprolol Succinate ER 200 MG Oral Tablet Extended Release 24 Hour 0 11/22/2022 Active Pantoprazole Sodium 40 MG Oral Tablet Delayed Release (Protonix) 0 11/11/2022 Active documented as of this encounter (statuses as of 01/23/2024) Active Problems Problem Noted Date Diagnosed Date Bowel incontinence IBS (irritable bowel syndrome) Colostomy status Hypothyroid Seasonal allergies Hypertension Malabsorption syndrome Anxiety documented as of this encounter (statuses as of 01/23/2024) Immunizations Name Administration Dates Next Due Seasonal Influenza, Quadrivalent Hd (Fluzone Hd) 06/30/2021 documented as of this encounter Social History Tobacco Use Types Packs/Day Years Used Date Smoking Tobacco: Never Smokeless Tobacco: Never Alcohol Use Standard Drinks/Week Comments No 0 (1 standard drink = 0.6 oz pur e alcohol) Sex and Gender Information Value Date Recorded Sex Assigned at Not on file Gender Identity Not on file Sexual Orientation Not on file Job Start Date Occupation Industry Not on file Not on file Not on file documented as of this encounter Plan of Treatment Scheduled Referrals Name Type Priority Associated Diagnoses Order Schedule ADULT GASTROENTEROLOGY REFERRAL OP Referral Within 30 days (routine) Stricture esophagus Ordered: 01/23/2024 Health Maintenance Due Date Last Done Comments DXA Scan 1937 Depression Screening 1949 Albumin/Creatinine Ratio 1955 TSH 1955 DTaP,Tdap,and Td Vaccines (1 - Tdap) 1956 Zoster Vaccines (1 of 2) 1987 Pneumococcal Vaccine: 65+ Years (1 of 1 - PCV) 2002 COVID-19 Vaccine (3 - 2022-2 4 season) 2023 01/11/2021, 12/21/2020 Influenza Vaccine (FLU shot) (Season Ended) 2024 06/30/2021, 06/30/2021 GARDASIL-HPV IMMUNIZATION SERIES Aged Out No longer eligible b ased on patient's age to complete this topic Hepatitis B Aged Out No longer eligi ble based on patient's age to complete this topic MENINGOCOCCAL (MENACTRA/MENVEO) Aged Out No longer eligible b ased on patient's age to complete this topic documented as of this encounter Medical Devices Not on filedocumented as of this encounter Visit Diagnoses Diagnosis 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
--- NOTE | 2024-02-15 22:07 | Electrocardiogram Report ---
Test Reason : Blood Pressure : / mmHG Vent. Rate : 060 BPM Atrial Rate : 060 BPM P-R Int : 248 ms QRS Dur : 066 ms QT Int : 440 ms P-R-T Axes : 071 042 051 degrees QTc Int : 440 ms Atrial-paced rhythm with prolonged AV conduction Septal infarct , age undetermined Abnormal ECG When compared with ECG of 26-MAY-2022 17:03, No significant change Confirmed by Denys Montemayor ([id number]) on 02/15/2024 10:07:50 PM Referred By: REFERRED SELF Confirmed By:Denys Montemayor
--- OUTSIDE RECORDS SUMMARY | 2024-02-15 22:48 | External Medical Summary | Summary of Care ---
Author Name Unknown Organization [facility] Address [address] [place] [address] Phone [phone] Care Team Providers Care Manager Occupational Name Role Phone Twila Denton MD Primary Care Provider Reason for Visit * Reason Onset Date Comments Appointment 01/01/2024 Gastro office vi sit Encounter Details Date Type Department Care Team ([facility] st Contact Info) Description 01/01/2024 Telephone Gastroenterology, [place] [address] [place] [address] Specified, [facility] [address] [place] [address] Appointment (Gastro office visit ) Allergies Active Allergy Reactions Criticality Noted Date Comments Verapamil High 10/04/2016 Other reaction(s): "THINGS STARTED TO SHUT DOWN-HEART, B/P TILL GOT TO ER". documented as of this encounter (statuses as of 02/13/2024) Medications Medication Sig Dispensed Refills Start Date [...] 2.5 MG Oral Tablet 0 12/23/2022 Active Wraatlqldl-RTDG-Soxbji ne 50-325-40 MG Oral Tablet (Fioricet) 0 12/23/2022 Active dilTIAZem HCl ER 240 MG Oral Capsule Extended Release 24 Hour 1 Capsule. 0 05/26/2022 Active Metoprolol Succinate ER 200 MG Oral Tablet Extended Release 24 Hour 0 11/22/2022 Active Pantoprazole Sodium 40 MG Oral Tablet Delayed Release (Protonix) 0 11/11/2022 Active documented as of this encounter (statuses as of 02/13/2024) Active Problems Problem Noted Date Diagnosed Date Bowel incontinence IBS (irritable bowel syndrome) Colostomy status Hypothyroid Seasonal allergies Hypertension Malabsorption syndrome Anxiety documented as of this encounter (statuses as of 02/13/2024) Immunizations Name Administration Dates Next Due Seasonal [...] on file documented as of this encounter Miscellaneous Notes * Telephone Encounter - Ning Cannon OSA - 01/23/2024 3:18 PM EDT Images from the original note were not included. documented in this encounter Plan of Treatment Health Maintenance Due Date Last Done Comments [...] Not on filedocumented as of this encounter Care Teams Manager Occupational Relationship Specialty Start Date End Date Twila Denton MD [address] [place] [id number] PCP - General Family Medicine 04/21/17 documented as of this encounter
--- NOTE | 2024-02-15 22:54 | Electrocardiogram Report ---
Test Reason : Blood Pressure : / mmHG Vent. Rate : 179 BPM Atrial Rate : 139 BPM P-R Int : 000 ms QRS Dur : 062 ms QT Int : 226 ms P-R-T Axes : 000 018 228 degrees QTc Int : 390 ms Poor data quality, interpretation may be adversely affected Atrial fibrillation with rapid ventricular response Septal infarct (cited on or before 13-FEB-2024) Marked ST abnormality, possible inferior subendocardial injury Marked ST abnormality, possible anterolateral subendocardial injury Abnormal ECG When compared with ECG of 13-FEB-2024 19:28, (unconfirmed) Atrial fibrillation has replaced Atrial-paced rhythm Confirmed by Denys Montemayor ([id number]) on 02/15/2024 10:54:13 PM Referred By: REFERRED SELF Confirmed By:Denys Montemayor
[2024-02-16] MEDS: PROMETHAZINE HCL 25 MG TAB PO PRN (00:17)
[2024-02-16] MEDS: traMADol HCL 50 MG TABLET PO PRN (00:20)
[2024-02-16] MEDS: oxyCODONE HCL IR 5 MG TAB (IMMEDIATE RELEASE) PO PRN (05:33)
[2024-02-16 06:13] LABS: Albumin Level 2.9 gm/dl (3.4-5.0); BUN Creatinine Ratio 19.3 (10-20); Calcium 7.4 mg/dl (8.6-10.3); Creatinine Clr Calc Pharmacy 26.6 ml/min; Est GFR (African American) 53.2 ml/min; Est GFR (Non-African American) 45.9 ml/min; Magnesium 2.2 mg/dl (1.7-2.4); Phosphorus 2.2 mg/dl (2.5-4.9); Potassium 3.6 mmol/L (3.5-5.1)
[2024-02-16 06:57] LABS: Basophils # (auto) 0.03 K/uL (0.00-0.20); Basophils % (auto) 0.2 %; Eosinophils # (auto) 0.03 K/uL (0.00-0.50); Eosinophils % (auto) 0.2 %; Hematocrit (blood only) 30.7 % (37.0-47.0); Hemoglobin 10.7 g/dl (12.0-16.0); Immature Granulocytes # (auto) 0.12 K/uL (0.01-0.20); Immature Granulocytes % (auto) 0.9 %; Lymphocytes # (auto) 1.42 K/uL (1.20-3.40); Lymphocytes % (auto) 10.8 %; Mean Corpuscular Hgb Conc 34.9 g/dL (32.0-36.0); Mean Corpuscular Volume 91.9 fL (80.0-100.0); Mean Platelet Volume 9.3 fL (9.4-12.4); Monocytes # (auto) 1.41 K/uL (0.11-0.59); Monocytes % (auto) 10.7 %; Neutrophils # (auto) 10.14 K/uL (1.40-6.50); Neutrophils % (auto) 77.2 %; Nucleated RBC # (auto) 0.03 K/uL (0.00-0.12); Nucleated RBC % (auto) 0.2 %; Platelet Count 129 K/uL (130-400); RDW Coefficient of Variation 16.1 % (11.5-14.5); RDW Standard Deviation 53.4 fL (36.4-46.3); Red Blood Count 3.34 M/uL (4.20-5.40); White Blood Count 13.15 K/ul (4.8-10.8)
--- NOTE | 2024-02-16 13:21 | Hospitalist Progress Note ---
Date of Service February 16, 2024 Assessment & Plan (1) Closed right hip fracture: Plan: 88 y/o with PAF on apixaban admitted with pathologic osteoporotic right hip fracture after ground level mechanical fall Operation Date: 02/14/24 12:30 Actual Procedures p Intramedullary Dave Femur, Right Hip(Right) - Tab Freitas, DO -postop care per orthopedic surgery -Has some postoperative delirium improving, cont low-dose oral oxycodone for severe pain, tramadol for moderate pain, scheduled acetaminophen -PT/OT - anticipate [facility] as soon as tomorrow Acute blood loss anemia related to fracture -transfused 2 units 02/14 with good increase in Hg, now 10.7. Creat improved a lot with this. Leukocytosis - likely related to fracture, received dexamethasone during surgery so white blood count remains elevated though downtrending- AM CBC Mild thrombocytopenia - not on heparinoid - AM CBC Osteoporosis - Ca/Vit D, vitamin D level normal, follow-up in primary care (2) Fracture of spinous process of cervical vertebra: Plan: fracture of C4/C5 spinous processes orthopedics evaluated, this is a stable fracture, c-collar not needed unless it improves pain (3) Acute kidney injury superimposed on CKD: Plan: JESS on CKD-3 - prerenal, resolving -remove quiles -Hyperkalemia 02/13 resolved with treatment, now trending down and normally on daily potassium replacement - resumed 10 meq daily starting in AM -Creatinine improved from 2-->1 overnight, now at baseline -AM BMP (4) Paroxysmal atrial fibrillation: Plan: 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 had some rapid afib postop that required IV metoprolol and has resolved. chronically anticoagulated on apixaban 2.5 mg twice daily which is appropriate dosing for her age/BMI/creatinine -has been resumed Rate control improved with resuming Toprol-XL 200 mg, diltiazem CD 240 mg daily on 02/14 Plan benzodiazepine dependence - has outpatient rx for lorazepam 1 mg tid, reviewed PDMP, recently filled. Ordered 1 mg bid to prevent withdrawal. Recommend tapering this medication. Associated with falls and delirium in elderly Chronic nauseahad exacerbation postop required IV antiemetics. Eating normally now. Resumed oral as needed Phenergan which is her home medication, continue IV ondansetron as needed hypertension - meds as above hypothyroidismresumed levothyroxine chronic back and leg pain- has outpatient Rx for tramadol history of incidental pulmonary embolism pulmonary hypertension colostomy PT/OT evals anticipate rehab stay [facility] DVT ppx: apixaban I updated her daughter at bedside 02/14 Admission and Anticipated Discharge Date Admission Date: February 13, 2024 Subjective Doing well today seems a bit less confused and more oriented. R hip still hurts. Up in chair right now No shortness of breath or CP Physical Exam 2 Physical Exam: PHYSICAL EXAMINATION Last 24h vital signs reviewed, see documentation in flowsheet General: comfortable appearing, no distress, sitting up in chair HEENT: Normocephalic, atraumatic, pupils round and equal, sclerae anicteric, no conjunctival injection, moist mucus membranes Lungs: Normal respiratory effort. Clear to auscultation bilaterally. No RRW Heart: irreg irreg, no murmurs. No JVD Abdomen: Soft, nontender, nondistended. Bowel sounds present. Extremities: Warm, dry, well-perfused. mild lower extremity edema. right hip incision covered with surgical dressing, clean dry and intact no erythema no drainage Neuro: Alert awake and talkative, oriented to self hospital and basic situation but is confused seems less so than yesterday, face symmetric, moving extremities equally Psych: Normal affect and behavior Results & Data Results & Data Vital Signs (Past 12 Hours) Vital Signs Temp Pulse Pulse Resp BP BP Pulse Ox 02/16/24 10:39 36.9 C 60 18 126/70 95 02/16/24 07:51 60 02/16/24 07:05 36.7 C 60 17 194/84 H 96 02/16/24 03:29 36.3 C L 76 14 108/65 95 O2 Del Method 02/16/24 10:39 Room Air 02/16/24 07:51 02/16/24 07:05 Room Air 02/16/24 03:29 Room Air Laboratory Results 02/16/24 05:30 02/16/24 05:30 PG Care Time/CCT Total # of Minutes Spent Total Time Spent with Patient: Total time spent is greater than 50% in coordination of care (as documented) at patient's floor/unit and/or counseling patient: Coding Level of Care Code 15151 SUB INP/OBS CARE 2/35MIN Diagnoses Closed right hip fracture S72.001A Fracture of spinous process of cervical vertebra S12.9XXA Acute kidney injury superimposed on CKD N17.9; N18.9 Paroxysmal atrial fibrillation I48.0
--- NOTE | 2024-02-16 13:41 | Orthopedic Progress Note ---
Date of Service February 16, 2024 Assessment & Plan (1) Closed right hip fracture: Unfortunately she has just been a little bit slow to get up and ambulate since her hip replacement. She did receive some blood yesterday and her hematocrit has returned to near normal. She is on Eliquis for DVT prophylaxis. She can be weightbearing as tolerated with the right hip. She is orthopedically stable for discharge when medically ready. She can follow-up with orthopedics in 2 weeks for staple removal. Full orthopedic discharge instructions were placed in the discharge summary. If you have any questions or concerns please feel free to Helotes text me at any time. Subjective That he was seen and examined at bedside this morning. Unfortunately she has been a little bit slow to ambulate. She had no acute events overnight.. Review of Systems All systems reviewed & are unremarkable except as noted in HPI & below. Physical Exam On physical examination the right hip, the dressing is clean and dry. The leg is out full extension.. Results & Data Results & Data Laboratory Results . Diagnostic Findings . PG Care Time/CCT Total # of Minutes Spent Total Time Spent with Patient: Total time spent is greater than 50% in coordination of care (as documented) at patient's floor/unit and/or counseling patient: Coding Level of Care Code 58651 Post Operative Follow-Up Diagnoses Closed right hip fracture S72.001A
--- NOTE | 2024-02-16 18:00 | Discharge Summary ---
Date of Service February 16, 2024 Admission HPI Per Admitting Provider The patient is an 88-year-old female with a past medical history including cardiac pacemaker, tachybradycardia syndrome, paroxysmal atrial fibrillation,, depression, anxiety and hypothyroidism. She presents to the emergency department with a history of of increasing falls, with a fall that occurred earlier in the day prior to arrival, resulting in severe left hip pain, with x- ray in the emergency department demonstrating a right femoral intertrochanteric closed fracture. CT scan cervical spine also notes acute spinous process fractures at C4 and C5. Principal Diagnosis Right hip fracture and JESS Discharge Exam PHYSICAL EXAMINATION Last 24h vital signs reviewed, see documentation in flowsheet General: sitting in chair and looks really good HEENT: Normocephalic, atraumatic, pupils round and equal, sclerae anicteric, no conjunctival injection, moist mucus membranes Lungs: Normal respiratory effort. Clear to auscultation bilaterally. No RRW Heart: irreg irreg, no murmurs. No JVD Abdomen: Soft, nontender, nondistended. Bowel sounds present. Extremities: Warm, dry, well-perfused. mild lower extremity edema. right hip incision dressed, c/d/i n strikethrough Neuro: Alert awake and talkative, oriented to self hospital and basic situation but is confused seems less so than yesterday, face symmetric, moving extremities equally Psych: Normal affect and behavior Discharge Data Allergies Allergy/AdvReac Type Severity Reaction Status Date / Time verapamil Allergy Severe "THINGS Verified 02/13/24 22:37 STARTED TO SHUT DOWN-HEART, B/P TILL GOT TO ER". aspirin AdvReac Unknown GI UPSET, Verified 02/13/24 22:37 TAKES BABY ASA WITHOUT PROB Consultations 02/13/24 20:40 ED Decision to Admit Stat 02/13/24 23:24 Consult Orthopedic Surgery Routine Procedures Performed Operation Date: 02/14/24 12:30 Actual Procedures p Intramedullary Dave Femur, Right Hip(Right) - Tab Freitas, Ordered Studies 02/13/24 18:15 CT head/brain wo con Stat CT neck [CT cervical spine wo con] Stat 02/14/24 07:26 FL hip RT 2-3V Routine Cervical Spine CT 02/13/24 18:15 CT SCAN OF THE CERVICAL SPINE CLINICAL HISTORY: Trauma. Fall. COMPARISON STUDY: No priors. TECHNIQUE: CT scan of the cervical spine is performed from the skull base to the upper thoracic spine. Images are reviewed in the axial, sagittal, and coronal planes. IV contrast was not administered for this examination. A dose lowering technique was utilized adhering to the principles of ALARA. CT DOSE: 1015.03 mGy.cm FINDINGS: Skeletal structures: The skeletal structures are osteopenia. There are acute spinous process fractures at C4 and C5. No additional acute fracture is seen involving the cervical spine. There remains spinous processes appear intact. There is no subluxation. Vertebral body height is maintained. There is minimal anterolisthesis at C4-C5 and C7-T1. Alignment is otherwise preserved. There is straightening of the cervical lordosis. Anterior osteophytes are seen throughout. The odontoid process and lateral masses are intact. The atlantoaxial articulation is preserved noting productive degenerative change. There is mild to moderate multilevel facet arthropathy. Intervertebral discs: There is severe disc space narrowing at C5-C6 with associated bony sclerosis. Moderate to severe narrowing is seen at C3-C4, C4-C5, and C6-C7. Central canal: Posterior disc osteophyte complexes at C4-C5, C5-C6, and C6-C7 may contribute to mild acquired compromise of the central canal. Soft tissues: The prevertebral and paraspinous soft tissues are within normal limits. The right thyroid lobe is enlarged and heterogeneous indicative of goiter. The left lobe is diminutive versus surgically absent. There is atherosclerotic calcification of the carotid bulbs. Pacemaker leads are noted at the left thoracic inlet. Calvarium: The visualized calvarium at the skull base appears intact. Brain parenchyma: Partially visualized brain parenchyma at the skull base is within normal limits. Sinuses and mastoids: The visualized paranasal sinuses are clear. The mastoid air cells are well pneumatized. Lung apices: Clear as visualized. IMPRESSION: 1. Acute spinous process fractures of C4 and C5. 2. No additional acute fracture is seen involving the cervical spine. There is no subluxation. 3. Osteopenia and spondylotic change as above. ACT 112: Negative or not required by law. Electronically signed by: Deepak Mckeon M.D. 02/13/2024 7:[address] 02/13/24 18:15 CT SCAN OF THE BRAIN WITHOUT IV CONTRAST CLINICAL HISTORY: Fall. COMPARISON STUDY: CT of the brain dated 02/10/2022. TECHNIQUE: Unenhanced axial CT scan of the brain is performed from the vertex to the skull base. A dose lowering technique was utilized adhering to the principles of ALARA. FINDINGS: Brain parenchyma: There is age-related involutional change noting moderate subcortical and periventricular microangiopathic disease. There is no hemorrhage, mass effect, or evidence of acute territorial ischemia by CT criteria. Marshall-white matter differentiation is preserved. No extra-axial fluid collection is seen. Ventricles, sulci, cisterns: Prominent secondary to involutional change. Intracranial vasculature: There is atherosclerotic calcification of the cavernous carotid arteries. Calvarium: The skeletal structures are osteopenic. No depressed fracture is seen. Sinuses and mastoids: The visualized paranasal sinuses are clear. The mastoid air cells are well pneumatized. Orbits: The bony orbits are grossly intact. There are bilateral ocular lens implants. IMPRESSION: There is no hemorrhage, mass effect, or evidence of acute territorial ischemia by CT criteria. ACT 112: Negative or not required by law. Electronically signed by: Deepak Mckeon M.D. 02/13/2024 7:43 PM Hip/Pelvis X-Ray 02/13/24 18:15 SINGLE VIEW PELVIS; 2 VIEWS RIGHT HIP CLINICAL HISTORY: Fall. FINDINGS: An AP supine view of the pelvis with AP and crosstable lateral views of the right hip are correlated with pelvic CT dated 10/16/2021. The skeletal structures are osteopenic. There is a comminuted, displaced, and angulated intertrochanteric fracture of the right proximal femur. There is medial displacement of the lesser trochanter. Overlying soft tissue edema is noted. No additional acute fracture is seen involving the left hip or the bony pelvis. Moderate arthritic change and joint space narrowing is seen in the hips. There is degenerative sclerosis of the sacroiliac joints and pubic symphysis. Lumbosacral spondylosis is partially imaged. Surgical clips project over the pelvis. IMPRESSION: Intertrochanteric fracture of the right proximal femur as above. Electronically signed by: Deepak Mckeon M.D. 02/13/2024 7:38 PM Chest X-Ray 02/13/24 18:16 SINGLE VIEW CHEST CLINICAL HISTORY: Fall. Hip fracture. FINDINGS: An AP, supine, upright chest radiograph is compared to study dated 05/26/2022. Correlation is made with chest CT dated 10/14/2021. A 2-lead cardiac pacemaker is unchanged in position. The heart is mildly enlarged noting atherosclerotic calcification of the thoracic aorta. The pulmonary vasculature is noncongested. Chronic interstitial thickening is similar to previous. Parenchymal scarring/fibrotic changes again seen in both lungs, similar to previous. No airspace consolidation or large pleural effusion is identified. No pneumothorax is seen. The skeletal structures are osteopenic. The bony thorax is grossly intact. IMPRESSION: 1. Cardiomegaly and cardiac pacemaker without radiographic evidence of congestive failure. 2. Chronic parenchymal changes as above with no airspace consolidation or large pleural effusion identified. ACT 112: Negative or not required by law. Electronically signed by: Deepak Mckeon M.D. 02/13/2024 7:40 PM Hip X-Ray 02/14/24 07:26 INTRAOPERATIVE RADIOGRAPHS CLINICAL HISTORY: Open reduction and internal fixation of a right femoral fracture. Fluoro time: 64 seconds Ka,r: 10.84 mGy FINDINGS: 4 spot fluoroscopic views of the right hip are correlated with radiographs dated 02/13/2024. There has been intertrochanteric and intramedullary nail fixation of an intertrochanteric fracture of the right proximal femur. Near-anatomic alignment is respiratory. A single cortical lag screw transfixes the distal end of the intramedullary nail. There is persistent medial displacement of the lesser trochanter. Overlying soft tissue edema is noted. IMPRESSION: Intraoperative images from open reduction and internal fixation of a proximal right femoral fracture as above. Electronically signed by: Deepak Mckeon M.D. 02/14/2024 11:27 AM 02/16/24 05:30 02/16/24 05:30 Hospital Course (1) Closed right hip fracture: 88 y/o with PAF on apixaban admitted with pathologic osteoporotic right hip fracture after ground level mechanical fall Operation Date: 02/14/24 12:30 Actual Procedures p Intramedullary Dave Femur, Right Hip(Right) - Tab Freitas DO -follow up with orthopedic surgeon -Has some postoperative delirium improving on top of baseline dementia, cont low-dose oral oxycodone for severe pain, tramadol for moderate pain, scheduled acetaminophen -PT/OT - anticipate [facility] as soon as tomorrow Acute blood loss anemia related to fracture -transfused 2 units 5/5 with good increase in Hg, now 10.7. Creat improved a lot with this. Leukocytosis - likely related to fracture, received dexamethasone during surgery so white blood count remains elevated though downtrending Mild thrombocytopenia - not on heparinoid -recommend CBC in a few days Osteoporosis - Ca/Vit D, vitamin D level normal, follow-up in primary care (2) Fracture of spinous process of cervical vertebra: fracture of C4/C5 spinous processes orthopedics evaluated, this is a stable fracture, c-collar not needed unless it improves pain. Has not complained of any neck pain. (3) Acute kidney injury superimposed on CKD: JESS on CKD-3 - prerenal, resolving -removed quiles -Hyperkalemia 02/13 resolved with treatment, now trending down and normally on daily potassium replacement - resumed 10 meq daily starting in AM -Creatinine improved from 2-->1 overnight, now at baseline -recheck BMP in about a week (4) Paroxysmal atrial fibrillation: 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 had some rapid afib postop that required IV metoprolol and has resolved. chronically anticoagulated on apixaban 2.5 mg twice daily which is appropriate dosing for her age/BMI/creatinine -has been resumed Rate control improved with resuming Toprol-XL 200 mg, diltiazem CD 240 mg daily on 02/14 Plan benzodiazepine dependence - has outpatient rx for lorazepam 1 mg tid, reviewed PDMP, recently filled. Ordered 1 mg bid to prevent withdrawal. Recommend tapering this medication. Associated with falls and delirium in elderly Chronic nauseahad exacerbation postop required IV antiemetics. Eating normally now. Resumed oral as needed Phenergan which is her home medication for chronic nausea hypertension - meds as above hypothyroidismresumed levothyroxine chronic back and leg pain- has outpatient Rx for tramadol history of incidental pulmonary embolism pulmonary hypertension colostomy PT/OT recommended rehab stay [facility] DVT ppx: apixaban I updated her daughter at bedside 02/14 Total Time Total Time Spent Total Time Spent (In Minutes): I personally spent: 35 minutes today on clinical care activities including: reviewing chart notes and vital signs reviewing labs reviewing studies discussion with reporting process consultant(s) discussion with healthcare network pricing consultant examining and counseling the patient writing orders, discharge instructions and medications documentation Discharge Plan Discharge Items Patient Disposition: Transfer Inpatient Rehab Fac Reason For Visit: CLOSED R HIP FX, C4 & C5 ACUTE SPINOUS PROCESS FXS Discharge Diagnosis: right hip fracture Activity: Per Instructions section Weightbearing: Full weightbearing Non-emergency contact: Primary Care Provider and Surgeon Call non-emergency contact if: you have any medication questions, your symptoms worsen, you have a fever, your wound has increased redness and your wound has increased drainage Follow-up/Referrals: Tab Freitas DO [Physician] - Twila Denton MD [Primary Care Provider] - Diet: Regular Addtl Attending Provider Instructions: Check BMP in 1-2 days. Had JESS (resolved as of 02/15) and hyperkalemia (resolved), now trending hypokalemic and resumed low dose oral potassium replacement - takes chronically Please check CBC in a few days - mild thrombocytopenia on 02/15 might be consumptive Afib well controlled on current medications Continue apixaban for afib and DVT prophylaxis PT and OT evaluate and treat Recommend slowly tapering off of lorazepam (dementia, delirium, falls). Home dose 1 mg tid, decreased to 1 mg bid this admission Addtl Slurry Tank Operator Provider Instructions: ORTHOPEDIC INSTRUCTIONS Hip Fracture Activity and Therapy Recommendations: 1. You were shown a series of exercises in the hospital. Do these exercises three times each day if you are able. 2. Get up and walk several times each day if you are capable. Make sure you have assistance is needed. For the first four weeks, try not to stand or walk for more than one hour at a time. If you do stand or walk for more than one hour, you will not hurt anything, but your leg will likely swell. 3. As you feel comfortable, you may change from the walker or crutches to a cane and then to independent walking if you are able. Please be safe. Medications: 1. Narcotic You will likely be sent from the hospital with the narcotic pain medication that worked best throughout your stay. 2. Eliquiscontinue taking your Eliquis 2.5 mg twice a day. 3. Other medications may be given for specific circumstances. If you have any questions, please call the office at [phone]. 4. Resume previous home medications unless otherwise instructed TEDs/Elastic Stockings: The white elastic stockings help limit swelling and prevent blood clots from forming in your legs. The more you wear them, the more they work. Wear them for six weeks. Dressing Care: Sandro can be open to air as long as the incisions are not draining. If the incisions are draining or if the sandro are getting caught on your clothes then please cover the sandro with dry gauze. Change the dressings as necessary to keep the incision as dry as possible Showering: You may shower 5 days from the day of surgery as long as the incisions are not draining. Do not soak the incision. Let soapy water run over the sandro and pat them dry. Things To Watch For: 1. Drainage from the incision site that occurs more than one week after your surgery. 2. Increased redness at the incision site. 3. Fever above 102 degrees Fahrenheit. 4. Unusual chest pain or shortness of breath. 5. Call [facility] at with any of the above problems Follow-Up Visit: Follow-up with Dr. Freitas's PA (Tab Gonzalez) 2-3 weeks after your day of surgery. He will remove your sandro and answer any questions. If you have any additional questions or concerns, Dr Freitas is usually in the office at the same time and will be available Please call the office to set up an appointment for a time that works for you. Pending Studies at Discharge: No Stand-Alone Forms: My [facility] Skilled Items Patient informed of condition?: Yes DNR: Yes Discharge Level of Care: Acute rehab Communicable Disease: No Discharge Prognosis: Improving Lines: None Urinary Catheter: No Medications and DC Order Prescriptions: New acetaminophen 325 mg Tablet 650 mg PO QID Qty: 0 0RF tramadol 50 mg Tablet 50 mg PO Q4H PRNQty: 0 0RF magnesium hydroxide [Milk of Magnesia] 400 mg/5 mL Suspension 30 ml PO DAILY PRNQty: 0 0RF bisacodyl 10 mg Suppository 10 mg W[place] DAILY PRNQty: 0 0RF promethazine 25 mg Tablet 25 mg PO Q6H PRNQty: 0 0RF lorazepam 1 mg Tablet 1 mg PO BID Qty: 0 0RF oxycodone 5 mg Tablet 5 mg PO Q6H PRNQty: 0 0RF potassium chloride 10 mEq tablet,ER particles/crystals 10 meq PO DAILY Qty: 1 0RF Continued metoprolol succinate 200 mg tablet extended release 24 hr 200 mg PO DAILY Qty: 90 3RF levothyroxine 25 mcg Tablet 25 mcg PO QAM Protonix 20 mg tablet,delayed release (DR/EC) 40 mg PO QAM Eliquis 2.5 mg Tablet 2.5 mg PO BID 30 Days Qty: 60 3RF diltiazem HCl [Cardizem CD] 240 mg capsule,extended release 24hr 240 mg PO DAILY Qty: 30 0RF escitalopram oxalate 5 mg Tablet 5 mg PO DAILY Discontinued promethazine 25 mg Tablet 25 mg PO Q4H PRN (Reason: Nausea) lorazepam 1 mg Tablet 1 mg PO TID iobgwiphid-arrtlvzmnaott-yvkv 50-325-40 mg Tablet 1 tab PO Q4H PRN (Reason: Headache) potassium chloride 8 mEq tablet extended release 16 meq PO QAM tramadol [Ultram] 50 mg tablet 50 mg PO Q6H PRN (Reason: pain) Qty: 30 0RF Discharge Orders: Discharge Order (Routine); Ordered 02/16/24 Ordered By: Kesha Brooks Admission Data Admit Date/Time: 02/13/24 22:03 Attending Provider: Kesha Brooks Admit Provider: Juventino Deluna Primary Care Provider: Twila Denton Other Providers: [facility]; [facility]; Juventino Deluna; Tab Freitas Other Interventions: Discharge Summary Assessment (RN) Last Done: 02/16/24 15:51 Coding Level of Care Code 45190 INP/OBS DISCH >30 MIN Diagnoses Closed right hip fracture S72.001A Fracture of spinous process of cervical vertebra S12.9XXA Acute kidney injury superimposed on CKD N17.9; N18.9 Paroxysmal atrial fibrillation I48.0
--- NOTE | 2024-02-17 12:54 | Coding Query ---
CODING QUERY To promote full compliance with coding requirements relating to patient care, provider participation is requested in all cases of clinical specialist medical device uncertainty. Please assist us with the question(s) below: Coding Question(s): Can you please clarify whether the patient's C4/C5 spinous process fractures are pathological or traumatic? To do so, please place an 'x' in the set of () that apply. C4 spinous process fracture is: Traumatic () Pathological () Pathological, due to osteoporosis (x) C5 spinous process fracture is: Traumatic () Pathological () Pathological, due to osteoporosis x() Physician's Response(s): Thank you Pauline Lee Principal Diagnosis: "that condition established after study, to be chiefly responsible for occasioning the admission of the patient to the hospital for care." Co-Existing Principal Diagnosis: "when two or more diagnoses equally meet the criteria for principal diagnosis as determined by the circumstances of admission, diagnostic work up, and/or therapy provided, and the Alphabetic Index, Tabular List, or another coding guideline does not provide sequencing direction, any one of the diagnoses may be sequenced first." "When the physician has documented what appears to be a current diagnosis in the body of the record, but has not included the diagnosis in the final diagnostic statement, the physician should be asked whether the diagnosis should be added." (Source Coding Clinic 2 QTR90. p3-4) ANDREAS
== END 2024-02-16 16:34 | DRG 481 ==
LOC: ED 17:47 → SUATTDRO 22:03 → 2S 22:03

== ENCOUNTER 2024-05-22 12:29 | Inpatient (IN) ==
--- NOTE | 2024-05-22 12:48 | Emergency Department Note ---
Impression & Plan Altered mental status, Leukocytosis, Elevated lactic acid level, Hypomagnesemia, Elevated troponin, Dehydration ED Provider Note NAME: LEXX ROBERSON AGE: 89 SEX: F : 1935 ARRIVES VIA: Ambulance INFORMANT: [Patient][EMS, nursing] ED PROVIDER(S): [Deepak Abdul MD] CHIEF COMPLAINT: Altered mental state HISTORY OF PRESENT ILLNESS: The patient is an 89-year-old female who apparently lives independently. For the last week, she has developed some increasing confusion. As per EMS, her urine was tested for infection within the last 24 hours and by report was unremarkable. The patient does currently deny any pain. She is not short of breath. She is a poor historian. Because of the confusion, she was sent for evaluation. PMHx/PSHx/Social Hx: See Below PHYSICAL EXAM: GENERAL: Patient is in no acute distress. HEENT: No acute trauma, normocephalic atraumatic, mucous membranes dry, no nasal congestion. Pupils equal and reactive to light. NECK: No stridor, no adenopathy, no meningismus, trachea is midline. LUNGS: Clear to auscultation bilaterally when listening anterior, no wheeze, no rhonchi, breath sounds equal. HEART: Without murmurs gallops or rubs, regular rate and rhythm. ABDOMEN: Soft, nontender, no peritonitis. Colostomy present on the left. No surrounding erythema at the ostomy site. EXTREMITIES: No cyanosis, full range of motion of all the joints without pain or difficulty. Mild bilateral pedal edema. Extremities are cooler to the touch. NEUROLOGIC: Awake, confused, no acute motor or sensory deficits, no focal weakness. No speech slur. SKIN: No jaundice, no diaphoresis. Groin: No findings of cellulitis or infection. DIFFERENTIAL DIAGNOSIS: UTI, bacteremia or sepsis, pneumonia, viral illness, electrolyte imbalance, dehydration, intracranial bleeding or stroke, among others. EMERGENCY DEPARTMENT PROCEDURES: MEDICAL DECISION MAKING: There is a mild leukocytosis, this would be consistent with infection. There was a normal hemoglobin and platelet count. No coagulopathy. Potassium and magnesium were both low. No renal failure. Lactic acid level was elevated at 3.9, consistent with dehydration and/or infection. No concerning liver enzyme elevation. Patient appeared to be in a euthyroid state. ECG showed a paced rhythm. No ST elevation. Cardiac enzyme testing x 1 was slightly elevated. This troponin elevation could be secondary to cardiac injury or mismatch from her current presentation. Chest film did not show pneumonia or CHF. Urinalysis did not show infection. Brain CT showed atrophy, no acute bleed or mass effect. Blood culture is pending. Respiratory bio fire is pending. On exam, the patient appeared dehydrated. She denied any pain. She was not febrile or hypotensive. She was not hypoxic. Patient was aggressively managed. I was concerned for bacteremia/sepsis. She was given 1.5 L of IV saline. This should suffice for the recommended 30 cc/kg of fluid for sepsis protocol based on her actual body weight. She received IV magnesium and IV cefepime. The cefepime was given for empiric antibiotic coverage. I did speak to the daughter, I spoke with the patient. Given her findings, given her presentation/confusion, I do think a hospital stay is warranted. I am concerned for infection although source has not yet been found. Dehydration also appears to be a large part of her presentation. I spoke with the case management team, the on-call hospitalist was consulted. Patient is not safe for discharge home. Prior/Outside records/notes reviewed: Today's EMS notes describing her presentation and transport to the hospital. ECG per my interpretation: Indication was weakness. The ECG shows an atrial pacemaker with a prolonged AV conduction. There are some inverted T waves across the anterior and inferior leads. There is potential old septal infarct. There is no obvious acute ST elevation, no PVCs. The QTc is 441. Compared to an ECG from 13 Feb 2024, the T wave/ST changes are more pronounced. Continuous Cardiac Monitoring per my interpretation: An order was placed for continuous cardiac monitoring. The monitor shows a rate of 68 with an atrial pacemaker. Imaging/x-ray results per my interpretation: Chest x-ray does not show mediastinal widening, pneumonia or CHF. Chronic Medical/Social conditions affecting care: Advanced age. Care/Management discussed with: Case management, the on-call hospitalist. Level of care consideration(s): After review of the information above and other included data: --I believe the patient requires escalation of care to admission Critical Care Note: I have personally spent 39 minutes of critical care time in the direct management of this patient. This includes bedside care, interpretation of diagnostic studies, and testing, discussion with consultants, patient, and family members, and other required patient management activities. This 39 minutes is in excess of all separately billable procedures. DISPOSITION: Admission Past Med/Surg History Problem List (Updated 05/22/24 @ 14:59 by Deepak Abdul MD) Dehydration (Acute) Elevated troponin (Acute) Hypomagnesemia (Acute) Elevated lactic acid level (Acute) Leukocytosis (Acute) Altered mental status (Acute) Acute kidney injury superimposed on CKD C4 cervical fracture C5 cervical fracture Closed right hip fracture Fracture of spinous process of cervical vertebra (Acute) Anticoagulant long-term use Cardiac pacemaker Allergic rhinitis Pacemaker Tachy-roge syndrome Paroxysmal atrial fibrillation Colostomy in place HTN (hypertension) (Chronic) Depression (Chronic) Anxiety (Chronic) Hypothyroid (Chronic) Medical History Hypokalemia Left-sided chest pain Asymptomatic bacteriuria Atrial fibrillation with rapid ventricular response Pacemaker lead malfunction Acute dehydration Hypomagnesemia Dysrhythmia Dizziness SVT (supraventricular tachycardia) Abnormal urinalysis Hypomagnesemia Hypokalemia Headache History of pulmonary embolism Leukocytosis Partial small bowel obstruction Abdominal pain, epigastric Trouble swallowing CERTAIN FOODS WILL STICK WHEN SWALLOWING Cerumen impaction Seasonal allergies Weight loss 30+ lb weight loss in lst 6 months Chronic back pain PAIN TO BOTH LEGS Osteoarthritis Depression Anxiety History of palpitations "skips beats" Hypertension Chronic nausea GERD (gastroesophageal reflux disease) Migraine Poor historian Pulmonary embolism 4-5 years ago - asymptomatic - incidental finding - treated w/ blood thinners x 6 months, cause? Lung nodules previously biopsied - benign Intractable nausea and vomiting Chest pain, rule out acute myocardial infarction Anorexia Abnormal EKG Pulmonary hypertension GERD (gastroesophageal reflux disease) Surgical History History of colonoscopy History of hernia repair History of Lloyd fundoplication Hx of thyroidectomy PARTIAL Nausea and vomiting after administration of anesthetic agent Hx of bladder repair surgery FOR SUPPORT History of surgery left elbow Hx of cholecystectomy Hx of tonsillectomy S/P ANKIT-BSO HX History of esophagogastroduodenoscopy (EGD) w/ dilatation History of colostomy 10 -12years - placed b/c of incontinence (cause??) History of bronchoscopy Family History Mother Hypertension Cancer Father Cancer Other No family history of adverse response to anesthesia No family history of bleeding disorder Social History Smoking Status: Never smoker Second Hand Exposure: No; Do You Dip or Chew Tobacco: No; Hx Alcohol Use: No Hx Substance Use: No Preferred Language: Tajik Communication Ability: Unable Bulb Tester Required: No Beliefs That Will Affect Care: None marital status: / Current Living Situation: Alone How many Children do You have: 4 Feels Safe at Home: Yes Assistive Devices: Cane Allergies Allergies Allergy/AdvReac Type Severity Reaction Status Date / Time verapamil Allergy Severe "THINGS Verified 04/16/24 11:03 STARTED TO SHUT DOWN-HEART, B/P TILL GOT TO ER". aspirin AdvReac Unknown GI UPSET, Verified 04/16/24 11:03 TAKES BABY ASA WITHOUT PROB Home Meds Home Medications Medication Instructions Recorded Confirmed levothyroxine 25 mcg tablet 25 mcg PO QAM 07/03/18 04/16/24 pantoprazole 20 mg tablet,delayed 40 mg PO QAM 05/27/22 04/16/24 release (Protonix) Previous Rx's Medication Instructions Recorded apixaban 2.5 mg tablet (Eliquis) 2.5 mg PO BID 30 days #60 tabs 10/20/21 diltiazem HCl 240 mg 240 mg PO DAILY #30 caps 05/26/22 capsule,extended release 24 hr (Cardizem CD) metoprolol succinate 200 mg 200 mg PO DAILY #90 tabs 11/22/22 tablet,extended release 24 hr acetaminophen 325 mg tablet 650 mg (2 x 325 mg) PO QID #0 tabs 02/16/24 lorazepam 1 mg tablet 1 mg PO BID #0 tabs 02/16/24 oxycodone 5 mg tablet 5 mg PO Q6H PRN #0 tabs 02/16/24 potassium chloride 10 mEq 10 meq PO DAILY #1 tab 02/16/24 tablet,extended release(part/cryst) promethazine 25 mg tablet 25 mg PO Q6H PRN #0 tabs 02/16/24 tramadol 50 mg tablet 50 mg PO Q4H PRN #0 tabs 02/16/24 Results & Data (ED) Vital Signs Vital Signs - 24 hr 05/22/24 12:30 05/22/24 14:04 05/22/24 14:06 Temperature 36.6 C 36.6 C Temperature Source Oral Oral Pulse Rate 94 H 64 Pulse Rate [Left Finger] 64 Pulse Rhythm Regular Regular Pulse Rhythm [Left Finger] Regular Pulse Strength Normal Pulse Strength [Left Finger] Normal Respiratory Rate 19 19 22 Respiratory Effort / Characteristics Non-Labored Non-Labored Respiratory Depth Normal Normal Respiratory Pattern Regular Regular Blood Pressure 180/84 H Blood Pressure [Right Arm] 163/100 H Blood Pressure Mean 116 Blood Pressure Mean [Right Arm] 121 Blood Pressure Position Lying Blood Pressure Position [Right Arm] Lying Pulse Oximetry 95 91 96 Oxygen Delivery Method Room Air Oxymask Oxymask Oxygen Flow Rate 3 Sepsis Recent Fever Within 48 Hours No Sepsis New/Unexplained Change in Mental Status N/A Sepsis Action Taken by Nursing No Action Required 05/22/24 14:15 05/22/24 14:27 Temperature Temperature Source Pulse Rate 62 Pulse Rate [Left Finger] Pulse Rhythm Pulse Rhythm [Left Finger] Pulse Strength Pulse Strength [Left Finger] Respiratory Rate Respiratory Effort / Characteristics Respiratory Depth Respiratory Pattern Blood Pressure Blood Pressure [Right Arm] Blood Pressure Mean Blood Pressure Mean [Right Arm] Blood Pressure Position Blood Pressure Position [Right Arm] Pulse Oximetry 97 Oxygen Delivery Method Room Air Oxygen Flow Rate Sepsis Recent Fever Within 48 Hours Sepsis New/Unexplained Change in Mental Status Sepsis Action Taken by Care Home Medications Current Medication List: was personally reviewed by me Laboratory Data Attestation: I reviewed the patient's lab results. 05/22/24 13:27 05/22/24 13:27 Lab Results 05/22/24 05/22/24 05/22/24 Range/Units 13:00 13:27 13:35 WBC 12.95 H (4.8-10.8) K/ul RBC 4.03 L (4.20-5.40) M/uL Hgb 13.0 (12.0-16.0) g/dl POC Hgb 13.6 (12.0-16.0) g/dl Hct 37.7 (37.0-47.0) % POC Hct 40 (37-47) % MCV 93.5 (80.0-100.0) fL MCH 32.3 (25.0-34.0) pg MCHC 34.5 (32.0-36.0) g/dL RDW Std Deviation 46.1 (36.4-46.3) fL RDW Coeff of Hubert 13.5 (11.5-14.5) % Plt Count 331 (130-400) K/uL MPV 8.6 L (9.4-12.4) fL Immature Gran % (Auto) 0.6 % Neut % (Auto) 81.6 % Lymph % (Auto) 8.7 % [place] % (Auto) 8.6 % Eos % (Auto) 0.1 % Baso % (Auto) 0.4 % Neut # (Auto) 10.57 H (1.40-6.50) K/uL Lymph # (Auto) 1.13 L (1.20-3.40) K/uL [place] # (Auto) 1.11 H (0.11-0.59) K/uL Eos # (Auto) 0.01 (0.00-0.50) K/uL Baso # (Auto) 0.05 (0.00-0.20) K/uL Immature Gran # (Auto) 0.08 (0.01-0.20) K/uL PT 12.0 (9.0-12.0) Seconds INR 1.1 (0.9-1.1) APTT 26 (21-31) Seconds PTT Ratio 1.0 POC Sodium 135 (135-144) mmol/L Sodium 135 L (136-145) mmol/L POC Potassium 3.4 (3.3-5.0) mmol/L Potassium 3.4 L (3.5-5.1) mmol/L POC Chloride 100 L (101-112) mmol/L Chloride 99 (98-107) mmol/L Carbon Dioxide 23 (21-32) mmol/L POC Total CO2 23 L (24-31) mmol/L Anion Gap 13 H (3-11) POC Anion Gap 16.0 (16-25) mmol/L POC BUN 24 H (7-18) mg/dl BUN 25 H (6-23) mg/dl Creatinine 1.09 (0.6-1.2) mg/dl POC Creatinine 1.1 (0.6-1.3) mg/dl Est Cr Clr Drug Dosing 23.8 ml/min Est GFR ( Amer) 52.9 ml/min Est GFR (Non-Af Amer) 45.6 ml/min BUN/Creatinine Ratio 22.9 H (10-20) Glucose 130 H (70-99(Fasting)) mg/dl POC Glucose (other) 131 H (70-99) mg/dl Lactate (0.4-2.0) mmol/L Calcium 9.1 (8.6-10.3) mg/dl POC Ioniz Calcium Ozzie 1.11 L (1.12-1.32) mmol/l Magnesium 1.4 L (1.7-2.4) mg/dl Total Bilirubin 1.0 (0.2-1.0) mg/dl AST 22 (13-39) U/L ALT 11 (7-52) U/L Alkaline Phosphatase 118 H (34-104) U/L Total Creatine Kinase 103 (26-192) U/L Troponin I High Sens 21.2 H (0-14) pg/ml Total Protein 7.1 (6.0-8.3) gm/dl Albumin 3.9 (3.4-5.0) gm/dl Globulin 3.2 (2.5-4.0) gm/dl Albumin/Globulin Ratio 1.2 (0.9-2) TSH 2.708 (0.300-4.500) uIu/ml Urine Color Yellow Urine Appearance Clear (Clear) Urine pH 6.0 (4.5-7.5) Ur Specific [place] 1.022 (1.000-1.030) Urine Protein 1+ H (Negative) Urine Glucose (UA) Trace H (Negative) Urine Ketones 1+ H (Negative) Urine Blood Negative (Negative) Urine Nitrite Negative (Negative) Urine Bilirubin Negative (Negative) Urine Urobilinogen Negative (Negative) Ur Leukocyte Esterase Negative (Negative) Urine WBC (Auto) 0-5 (0-5) /hpf Urine RBC (Auto) 0-2 (0-2) /hpf U Hyaline Cast (Auto) 0-2 (0-2) /lpf U Epithel Cells (Auto) 0-2 (0-2) /hpf Urine Bacteria (Auto) None Seen (None Seen) Hyaline Casts Present A (None Presnt) /lpf 05/22/24 Range/Units 13:54 WBC (4.8-10.8) K/ul RBC (4.20-5.40) M/uL Hgb (12.0-16.0) g/dl POC Hgb (12.0-16.0) g/dl Hct (37.0-47.0) % POC Hct (37-47) % MCV (80.0-100.0) fL MCH (25.0-34.0) pg MCHC (32.0-36.0) g/dL RDW Std Deviation (36.4-46.3) fL RDW Coeff of Hubert (11.5-14.5) % Plt Count (130-400) K/uL MPV (9.4-12.4) fL Immature Gran % (Auto) % Neut % (Auto) % Lymph % (Auto) % [place] % (Auto) % Eos % (Auto) % Baso % (Auto) % Neut # (Auto) (1.40-6.50) K/uL Lymph # (Auto) (1.20-3.40) K/uL [place] # (Auto) (0.11-0.59) K/uL Eos # (Auto) (0.00-0.50) K/uL Baso # (Auto) (0.00-0.20) K/uL Immature Gran # (Auto) (0.01-0.20) K/uL PT (9.0-12.0) Seconds INR (0.9-1.1) APTT (21-31) Seconds PTT Ratio POC Sodium (135-144) mmol/L Sodium (136-145) mmol/L POC Potassium (3.3-5.0) mmol/L Potassium (3.5-5.1) mmol/L POC Chloride (101-112) mmol/L Chloride (98-107) mmol/L Carbon Dioxide (21-32) mmol/L POC Total CO2 (24-31) mmol/L Anion Gap (3-11) POC Anion Gap (16-25) mmol/L POC BUN (7-18) mg/dl BUN (6-23) mg/dl Creatinine (0.6-1.2) mg/dl POC Creatinine (0.6-1.3) mg/dl Est Cr Clr Drug Dosing ml/min Est GFR ( Amer) ml/min Est GFR (Non-Af Amer) ml/min BUN/Creatinine Ratio (10-20) Glucose (70-99(Fasting)) mg/dl POC Glucose (other) (70-99) mg/dl Lactate 3.9 H* (0.4-2.0) mmol/L Calcium (8.6-10.3) mg/dl POC Ioniz Calcium Ozzie (1.12-1.32) mmol/l Magnesium (1.7-2.4) mg/dl Total Bilirubin (0.2-1.0) mg/dl AST (13-39) U/L ALT (7-52) U/L Alkaline Phosphatase (34-104) U/L Total Creatine Kinase (26-192) U/L Troponin I High Sens (0-14) pg/ml Total Protein (6.0-8.3) gm/dl Albumin (3.4-5.0) gm/dl Globulin (2.5-4.0) gm/dl Albumin/Globulin Ratio (0.9-2) TSH (0.300-4.500) uIu/ml Urine Color Urine Appearance (Clear) Urine pH (4.5-7.5) Ur Specific [place] (1.000-1.030) Urine Protein (Negative) Urine Glucose (UA) (Negative) Urine Ketones (Negative) Urine Blood (Negative) Urine Nitrite (Negative) Urine Bilirubin (Negative) Urine Urobilinogen (Negative) Ur Leukocyte Esterase (Negative) Urine WBC (Auto) (0-5) /hpf Urine RBC (Auto) (0-2) /hpf U Hyaline Cast (Auto) (0-2) /lpf U Epithel Cells (Auto) (0-2) /hpf Urine Bacteria (Auto) (None Seen) Hyaline Casts (None Presnt) /lpf Administered Medications Discontinued Medications Sodium Chloride (Nss) 1,000 mls @ 999 mls/hr IV .Q1H1M USMAN Stop: 05/22/24 13:45 Last Admin: 05/22/24 14:03 Dose: 999 mls/hr Documented By: MANOLO Cefepime HCl (Maxipime) 2,000 mg in 20 mls @ 5 mls/min IV NOW STA; Protocol Stop: 05/22/24 12:43 Last Admin: 05/22/24 14:03 Dose: 5 mls/min Documented By: MANOLO Sodium Chloride (Nss) 500 mls @ 999 mls/hr IV .Q31M ONE Stop: 05/22/24 14:55 Last Admin: 05/22/24 14:36 Dose: 999 mls/hr Documented By: [facility] Imaging Data Radiologist's Impression: Chest X-Ray 05/22/24 12:40 XR chest 1V portable CLINICAL HISTORY: weakness COMPARISON STUDY: Chest radiograph February 13, 2024. FINDINGS: Left subclavian pacer is in place. There is no pneumothorax or pleural effusion. Pulmonary vascularity is normal. No consolidation to suggest pneumonia. Linear left midlung density and right perihilar nodular opacities are chronic. The appearance of the chest is unchanged. Skinfolds project over the chest. IMPRESSION: No acute cardiopulmonary findings. No change in appearance of the chest. ACT 112: Negative or not required by law. Electronically signed by: Han Couch M.D. 05/22/2024 1:[address] 05/22/24 12:41 CT OF THE HEAD WITHOUT CONTRAST CLINICAL HISTORY: Confusion. COMPARISON STUDY: Head CT February 13, 2024. CT DOSE: 547.75 mGy.cm TECHNIQUE: Helical axial images of the head were obtained without IV contrast. Automated exposure control was utilized for the study. A dose lowering technique was utilized adhering to the principles of ALARA. FINDINGS: No acute intracranial hemorrhage, midline shift or mass effect is present. Prominence of the extra-axial spaces is unchanged and due to atrophy. The ventricular system is unremarkable. The basal cisterns are patent. No extra- axial collections are present. There are no findings to suggest acute dural sinus thrombosis or acute territorial infarct. No significant calvarial abnormalities are present. Visualized portions of the sinuses and mastoid air cells are clear. IMPRESSION: No acute intracranial findings. No change in appearance of the brain. ACT 112: Negative or not required by law. Electronically signed by: Han Couch M.D. 05/22/2024 2:57 PM Discharge Plan Visit Data Chief Complaint: Altered Mental Status ED Provider: Deepak Abdul Discharge Problem: Altered mental status, Leukocytosis, Elevated lactic acid level, Hypomagnesemia, Elevated troponin, Dehydration Patient Disposition: Admitted As Inpatient Condition: Fair Forms Stand Alone Forms: [employer] Prescriptions Prescriptions: No Action metoprolol succinate 200 mg tablet extended release 24 hr 200 mg PO DAILY Qty: 90 3RF levothyroxine 25 mcg Tablet 25 mcg PO QAM Protonix 20 mg tablet,delayed release (DR/EC) 40 mg PO QAM Eliquis 2.5 mg Tablet 2.5 mg PO BID 30 Days Qty: 60 3RF diltiazem HCl [Cardizem CD] 240 mg capsule,extended release 24hr 240 mg PO DAILY Qty: 30 0RF acetaminophen 325 mg Tablet 650 mg PO QID Qty: 0 0RF tramadol 50 mg Tablet 50 mg PO Q4H PRNQty: 0 0RF promethazine 25 mg Tablet 25 mg PO Q6H PRNQty: 0 0RF lorazepam 1 mg Tablet 1 mg PO BID Qty: 0 0RF oxycodone 5 mg Tablet 5 mg PO Q6H PRNQty: 0 0RF potassium chloride 10 mEq tablet,ER particles/crystals 10 meq PO DAILY Qty: 1 0RF Referrals Referrals: Twila Denton MD [Primary Care Provider] - Discharge Problem: Altered mental status Qualifiers: Altered mental status type: disorientation Qualified Code(s): R41.0 - Disorientation, unspecified Leukocytosis Qualifiers: Leukocytosis type: unspecified Qualified Code(s): D72.829 - Elevated white blood cell count, unspecified
--- NOTE | 2024-05-22 13:27 | XRay Report ---
XR chest 1V portable CLINICAL HISTORY: weakness COMPARISON STUDY: Chest radiograph February 13, 2024. FINDINGS: Left subclavian pacer is in place. There is no pneumothorax or pleural effusion. Pulmonary vascularity is normal. No consolidation to suggest pneumonia. Linear left midlung density and right p erihilar nodular opacities are chronic. The appearance of the chest is unchanged. Skinfolds project o compa the chest. IMPRESSION: No acute cardiopulmonary findings. No change in appearance of the chest. ACT 112: Negative or not required by law. Electronically signed by: Han Couch M.D. 05/22/2024 1:26 PM
[2024-05-22 13:48] LABS: iSTAT Creatinine 1.1 mg/dl (0.6-1.3); iSTAT Hemoglobin 13.6 g/dl (12.0-16.0); iSTAT Ionized Calcium 1.11 mmol/l (1.12-1.32); iSTAT Potassium 3.4 mmol/L (3.3-5.0)
[2024-05-22 13:48] LABS: Basophils # (auto) 0.05 K/uL (0.00-0.20); Basophils % (auto) 0.4 %; Eosinophils # (auto) 0.01 K/uL (0.00-0.50); Eosinophils % (auto) 0.1 %; Hematocrit (blood only) 37.7 % (37.0-47.0); Immature Granulocytes # (auto) 0.08 K/uL (0.01-0.20); Immature Granulocytes % (auto) 0.6 %; Lymphocytes # (auto) 1.13 K/uL (1.20-3.40); Lymphocytes % (auto) 8.7 %; Mean Corpuscular Hemoglobin 32.3 pg (25.0-34.0); Mean Corpuscular Hgb Conc 34.5 g/dL (32.0-36.0); Mean Corpuscular Volume 93.5 fL (80.0-100.0); Mean Platelet Volume 8.6 fL (9.4-12.4); Monocytes # (auto) 1.11 K/uL (0.11-0.59); Monocytes % (auto) 8.6 %; Neutrophils # (auto) 10.57 K/uL (1.40-6.50); Neutrophils % (auto) 81.6 %; Platelet Count 331 K/uL (130-400); RDW Coefficient of Variation 13.5 % (11.5-14.5); RDW Standard Deviation 46.1 fL (36.4-46.3); Red Blood Count 4.03 M/uL (4.20-5.40); White Blood Count 12.95 K/ul (4.8-10.8)
[2024-05-22] MEDS: CEFEPIME 2,000 MG/20 ML VIAL IV STA (14:03)
[2024-05-22] MEDS: SODIUM CHLORIDE 0.9% 1,000 ML IV SCH (14:03)
[2024-05-22 14:14] LABS: INR 1.1 (0.9-1.1); Partial Thromboplastin Time 26 Seconds (21-31)
[2024-05-22 14:15] LABS: Albumin Globulin Ratio 1.2 (0.9-2); Albumin Level 3.9 gm/dl (3.4-5.0); BUN Creatinine Ratio 22.9 (10-20); Calcium 9.1 mg/dl (8.6-10.3); Creatinine Clr Calc Pharmacy 23.8 ml/min; Est GFR (African American) 52.9 ml/min; Est GFR (Non-African American) 45.6 ml/min; Globulin 3.2 gm/dl (2.5-4.0); Magnesium 1.4 mg/dl (1.7-2.4); Potassium 3.4 mmol/L (3.5-5.1); Total Protein 7.1 gm/dl (6.0-8.3)
[2024-05-22 14:22] LABS: Troponin I High Sensitivity 21.2 pg/ml (0-14)
[2024-05-22 14:31] LABS: Thyroid Stimulating Hormone 2.708 uIu/ml (0.300-4.500)
[2024-05-22] MEDS: SODIUM CHLORIDE 0.9% 500 ML IV ONE (14:36)
[2024-05-22 14:50] LABS: Appearance Urine Clear (Clear); Bacteria Urine Automated None Seen (None Seen); Bilirubin Urine Negative (Negative); Blood Urine Negative (Negative); Cast Urine Automated 0-2 /lpf (0-2); Color Urine Yellow; Epithelial Cell Urine Auto 0-2 /hpf (0-2); Glucose Urine UA Trace (Negative); Hyaline Casts Urine Present /lpf (None Presnt); Ketones Urine 1+ (Negative); Leukocyte Esterase Urine Negative (Negative); Nitrite Urine Negative (Negative); Protein Urine 1+ (Negative); RBC Urine Automated 0-2 /hpf (0-2); Specific Gravity Urine 1.022 (1.000-1.030); Urobilinogen Urine Negative (Negative); WBC Urine Automated 0-5 /hpf (0-5)
--- NOTE | 2024-05-22 14:59 | CT Scan Report ---
CT OF THE HEAD WITHOUT CONTRAST CLINICAL HISTORY: Confusion. COMPARISON STUDY: Head CT February 13, 2024. CT DOSE: 547.75 mGy.cm TECHNIQUE: Helical axial images of the head were obtained without IV contrast. Automated exposure con trol was utilized for the study. A dose lowering technique was utilized adhering to the principles o f ALARA. FINDINGS: No acute intracranial hemorrhage, midline shift or mass effect is present. Prominence of th e extra-axial spaces is unchanged and due to atrophy. The ventricular system is unremarkable. The bas al cisterns are patent. No extra-axial collections are present. There are no findings to suggest acut e dural sinus thrombosis or acute territorial infarct. No significant calvarial abnormalities are pre sent. Visualized portions of the sinuses and mastoid air cells are clear. IMPRESSION: No acute intracranial findings. No change in appearance of the brain. ACT 112: Negative or not required by law. Electronically signed by: Han Couch M.D. 05/22/2024 2:57 PM
--- NOTE | 2024-05-22 15:06 | History & Physical Report ---
Date of Service May 22, 2024 Assessment & Plan (1) Altered mental status: Plan: Admit to the PCU on telemetry and pulse oximetry Currently stable but very confused and unable to meaningfully interact during exam Presented to the ED earlier today via EMS after daughter found her even more confused than she had been earlier in the week Patient's family does not think she has had much to eat or drink throughout the week, it does not appear that she has taken her home medications since the morning of 05/19/2024 per review of her medication containers at home Differential is broad at this time cannot rule out possible infection with her leukocytosis but no obvious signs on chest x-ray, UA, or on exam Could possibly be due to significant dehydration noted on exam and with her elevated lactate level Per patient's family, she she has been taking 1 mg p.o. Ativan 3 times daily consistently for approximately 30 years, if she has not had a recent dose in the past 48 hours she could very well be having seizures due to withdrawal Cannot rule out possible CVA with her contracted right lower extremity and apparent confusion Status post 1.5 L NSS, a dose of cefepime, and 1 g IV mag sulfate in the ED Will start maintenance LR at 100 mL/h x 2 bags on admission, will reassess later today to see if we need to continue maintenance fluids overnight Giving 1 mg IV Ativan stat, will monitor for improvement in cognitive status, for now we will continue with 1 mg IV Ativan 3 times daily scheduled to prevent possible withdrawal Will obtain stat CTA of the head/neck, spoke with MRI as I was able to obtain her pacemaker information from the patient's daughter, unfortunately the earliest we can get an MRI of the brain without contrast is on Friday due to the patient's pacemaker status Nunez catheter has been placed as patient is not able to safely get out of bed or use a bedpan and cannot follow directions to use pure wick consistently Strict n.p.o. until dysphagia screen is obtained, will also consult speech therapy Will continue with empiric ceftriaxone moving forward for the next 48 hours until blood cultures are finished Fall/aspiration precautions, PT/OT consults AM CBC, CMP, mag, PT/INR (2) Elevated lactic acid level: Plan: Initial lactate elevated at 3.9 Anion gap of 13 with bicarb within normal limits Suspect this elevated lactate is due to significant dehydration on arrival Will continue empiric antibiotics and continue IV hydration and will follow with repeat after admission (3) Dehydration: Plan: Patient's family does not believe she has been eating or drinking consistently over the past week She examines dry on exam along with an elevated lactate of 3.9 Status post 1.5 L NSS in the ED, will continue with maintenance LR at the time of admission Monitor intake output every shift Monitor daily renal function and electrolytes (4) Elevated troponin: Plan: Initial high-sensitivity troponin of [address] segment depression in the anterolateral leads and inferior leads but improved compared to last ECG Patient is unable to tell us if she is having chest pain or not at this time Will follow-up on repeat high-sensitivity troponin, continue to monitor on telemetry Will order TTE for further assessment (5) Colostomy in place: Plan: Patient's colostomy bag was changed on arrival to the ED currently appears clean and without signs of surrounding infection Will need to monitor output moving forward, if concerns for high output can obtain stool studies (6) Paroxysmal atrial fibrillation: Plan: Currently in atrial paced rhythm Will wait for results of CTA of the head and neck before considering starting the patient on a heparin drip as she has not had her home Eliquis in multiple days Will convert p.o. metoprolol succinate to as needed IV Lopressor for now to keep heart rate below 120 bpm Resume p.o. metoprolol, diltiazem, and Eliquis when patient can safely (7) Anxiety: Plan: Patient has reportedly been taking 1 mg p.o. Ativan 3 times daily for approximately 30 years per family Giving 1 mg IV Ativan stat in case she is currently going through withdrawal Will continue with 1 mg IV Ativan 3 times daily scheduled for now until she can resume p.o. intake PCP should could consider very slow taper if able after discharge (8) Hypothyroid: Plan: TSH currently within normal limits Resume p.o. levothyroxine when able Plan The patient was discussed with Dr. Reese at the time of the admission History of Present Illness Chief Complaint: [facility] Primary Care Provider: Twila Denton MD Lali is an 88-year-old female with a past medical history including cardiac pacemaker, tachy-bradycardia syndrome, paroxysmal atrial fibrillation, depression, anxiety, hypothyroidism, and dementia who presented to the [facility] ED on 05/22/2024 via EMS due to concerns of acute confusion noticed by her daughter this morning when her daughter arrived to the patient's house. On arrival to the ED she was noted to be hypertensive at 180/84, tachycardic at 94, but otherwise stable. Labs were significant for leukocytosis of 12.9 with neutrophil predominance of 10.5, initial lactate of 3.9, elevated creatinine and BUN but not high enough for official JESS, glucose within normal limits, mag of 1.4, initial high-sensitivity troponin of 21, UA without signs of infection, with COVID-19/influenza/RSV screen in process. CT of the head and brain without contrast and chest x-ray were read as negative for acute findings. Prior to admission the patient was given 1.5 L NSS, a dose of cefepime, and 1 g IV mag sulfate. Patient was lying in bed in no obvious distress with her daughter sitting bedside, history was obtained from the patient's daughter due to her current mental status. Her daughter explains that at baseline the patient is normally very independent and cognitively intact. The patient lives at home alone but family checks on her multiple times a week. Her daughter helps the patient organize her medications. Her daughter explains over the past week the patient has had initially intermittent confusion. This would often happen towards the end of the day. During some phone calls this past week the patient's daughter explains that the patient thought her was trying to call her on her phone. The patient had 1 fall witnessed by the patient's other daughter, family explains that it was a very short fall from the couch to the ground, the patient did not hit her head or lose consciousness. The patient's daughter called EMS this morning when she found her mother even more confused than earlier this week. Her daughter does not think that she has taken any of her home medications since the morning of 05/19/2024. Patient's daughter also explains that she found an open and spilled bottle of Ativan between the couch and a coffee table. Patient's daughter explained to the patient has been taking 1 mg p.o. Ativan 3 times daily for approximately 30 years since the of her . Her daughter explains while these are ordered as needed she normally takes it 3 times daily. Daughter is unsure if the patient has been having increased ostomy output the past week. Due to the patient's current mental status she was unable to provide any history. The patient's daughter confirms that the patient is a DNR/DNI. Please refer to Dr. Reese's attestation for any changes to the treatment plan Allergies Allergy/AdvReac Type Severity Reaction Status Date / Time verapamil AdvReac Severe "THINGS Verified 05/22/24 15:04 STARTED TO SHUT DOWN-HEART, B/P TILL GOT TO ER". aspirin AdvReac Mild GI UPSET, Verified 05/22/24 15:04 TAKES BABY ASA WITHOUT PROB Home Medications Medication Instructions Recorded Confirmed Type levothyroxine 25 mcg tablet 25 mcg PO QAM 07/03/18 05/22/24 History apixaban 2.5 mg tablet (Eliquis) 2.5 mg PO BID 30 days #60 tabs 10/20/21 05/22/24 Rx pantoprazole 20 mg tablet,delayed 40 mg PO QAM 05/27/22 05/22/24 History release (Protonix) ysquhkziku-nvhgtpdjkiejm-onckiull 1 tab PO Q4H PRN Migraine Headache 05/22/24 05/22/24 History 50 mg-325 mg-40 mg tablet cholecalciferol (vitamin D3) 125 125 mcg PO QPM 05/22/24 05/22/24 History mcg (5,000 unit) tablet (Vitamin D3) diltiazem HCl 240 mg 240 mg PO QPM 05/22/24 05/22/24 History capsule,extended release 24 hr (Cardizem CD) diphenhydramine HCl 25 mg tablet 25 mg PO QPM 05/22/24 05/22/24 History (Sleep Aid (diphenhydramine)) lorazepam 1 mg tablet 1 mg PO TID PRN Anxiety 05/22/24 05/22/24 History metoprolol succinate 200 mg 200 mg PO QAM 05/22/24 05/22/24 History tablet,extended release 24 hr potassium chloride 8 mEq 16 meq PO QAM 05/22/24 05/22/24 History capsule,extended release tramadol 50 mg tablet 50 mg PO Q6H PRN Pain 05/22/24 05/22/24 History Past Med/Surg History Problem List (Updated 05/22/24 @ 14:59 by Deepak Abdul MD) Dehydration (Acute) Elevated troponin (Acute) Hypomagnesemia (Acute) Elevated lactic acid level (Acute) Leukocytosis (Acute) Altered mental status (Acute) Acute kidney injury superimposed on CKD C4 cervical fracture C5 cervical fracture Closed right hip fracture Fracture of spinous process of cervical vertebra (Acute) Anticoagulant long-term use Cardiac pacemaker Allergic rhinitis Pacemaker Tachy-roge syndrome Paroxysmal atrial fibrillation Colostomy in place HTN (hypertension) (Chronic) Depression (Chronic) Anxiety (Chronic) Hypothyroid (Chronic) Medical History Hypokalemia Left-sided chest pain Asymptomatic bacteriuria Atrial fibrillation with rapid ventricular response Pacemaker lead malfunction Acute dehydration Hypomagnesemia Dysrhythmia Dizziness SVT (supraventricular tachycardia) Abnormal urinalysis Hypomagnesemia Hypokalemia Headache History of pulmonary embolism Leukocytosis Partial small bowel obstruction Abdominal pain, epigastric Trouble swallowing CERTAIN FOODS WILL STICK WHEN SWALLOWING Cerumen impaction Seasonal allergies Weight loss 30+ lb weight loss in lst 6 months Chronic back pain PAIN TO BOTH LEGS Osteoarthritis Depression Anxiety History of palpitations "skips beats" Hypertension Chronic nausea GERD (gastroesophageal reflux disease) Migraine Poor historian Pulmonary embolism 4-5 years ago - asymptomatic - incidental finding - treated w/ blood thinners x 6 months, cause? Lung nodules previously biopsied - benign Intractable nausea and vomiting Chest pain, rule out acute myocardial infarction Anorexia Abnormal EKG Pulmonary hypertension GERD (gastroesophageal reflux disease) Surgical History History of colonoscopy History of hernia repair History of Lloyd fundoplication Hx of thyroidectomy PARTIAL Nausea and vomiting after administration of anesthetic agent Hx of bladder repair surgery FOR SUPPORT History of surgery left elbow Hx of cholecystectomy Hx of tonsillectomy S/P ANKIT-BSO HX History of esophagogastroduodenoscopy (EGD) w/ dilatation History of colostomy 10 -12years - placed b/c of incontinence (cause??) History of bronchoscopy Family History Mother Hypertension Cancer Father Cancer Other No family history of adverse response to anesthesia No family history of bleeding disorder Social History Smoking Status: Never smoker Second Hand Exposure: No; Do You Dip or Chew Tobacco: No; Hx Alcohol Use: No Hx Substance Use: No Preferred Language: Tunisian Communication Ability: Unable Drill Press Tender Required: No Beliefs That Will Affect Care: None marital status: / Current Living Situation: Alone How many Children do You have: 4 Feels Safe at Home: Yes Assistive Devices: Cane Physical Exam Physical Exam: Physical Exam: General: In mild distress due to confusion, stated age, ill but non-toxic appearing HEENT: Normocephalic, atraumatic, no scleral icterus, pupils around round, symmetrical, and reactive to light, dry mucus membranes, trachea midline, no thyromegaly Chest/Pulm: No respiratory distress, symmetrical chest expansion, clear breath sounds throughout Cardiac: regular rate and rhythm, no murmurs noted Abdomen: Negative for ascites and bruising, colostomy back located in the LLQ is without signs of surrounding infection or drainage, normoactive bowel sounds, soft, non-tender to palpation throughout Musculoskeletal: No acute trauma on inspection and palpation of the head, neck, cervical spine, BL UE's, and chest, patient with shortening and contracture of the RLE compared to left, no pain or crepitus noted on palpation of the BL hips, no acute trauma noted on the RLE Extremities: Radial, dorsalis pedis, and posterior tibial pulses are intact and symmetrical, no edema noted in the BL LE's Skin: Warm, dry, no rashes , lesions, or scars noted Neuro: Alert will not respond to orientation questioning, tremulous, no facial droop, pupils are round, symmetrical, and reactive to light, tongue is midline, RLE/foot is contracted, patient unable to follow commands to test strength in the BL LE's or for cerebellar/pronator drift testing, patient with resting tremor Psych: Currently confused and unable to provide meaningful responses to questioning Results & Data Results & Data Vital Signs (Past 12 Hours) Vital Signs Temp Pulse Pulse Resp BP BP Pulse Ox 05/22/24 14:27 62 05/22/24 14:15 97 05/22/24 14:06 36.6 C 64 22 163/100 H 96 05/22/24 14:04 64 19 91 05/22/24 12:30 36.6 C 94 H 19 180/84 H 95 O2 Del Method O2 Flow Rate 05/22/24 14:27 05/22/24 14:15 Room Air 05/22/24 14:06 Oxymask 3 05/22/24 14:04 Oxymask 05/22/24 12:30 Room Air Laboratory Results Abnormal lab results 05/22/24 05/22/24 05/22/24 Range/Units 13:00 13:27 13:35 WBC 12.95 H (4.8-10.8) K/ul RBC 4.03 L (4.20-5.40) M/uL MPV 8.6 L (9.4-12.4) fL Neut # (Auto) 10.57 H (1.40-6.50) K/uL Lymph # (Auto) 1.13 L (1.20-3.40) K/uL [place] # (Auto) 1.11 H (0.11-0.59) K/uL Sodium 135 L (136-145) mmol/L Potassium 3.4 L (3.5-5.1) mmol/L POC Chloride 100 L (101-112) mmol/L POC Total CO2 23 L (24-31) mmol/L Anion Gap 13 H (3-11) POC BUN 24 H (7-18) mg/dl BUN 25 H (6-23) mg/dl BUN/Creatinine Ratio 22.9 H (10-20) Glucose 130 H (70-99(Fasting)) mg/dl POC Glucose (other) 131 H (70-99) mg/dl Lactate (0.4-2.0) mmol/L POC Ioniz Calcium Ozzie 1.11 L (1.12-1.32) mmol/l Magnesium 1.4 L (1.7-2.4) mg/dl Alkaline Phosphatase 118 H (34-104) U/L Troponin I High Sens 21.2 H (0-14) pg/ml Urine Protein 1+ H (Negative) Urine Glucose (UA) Trace H (Negative) Urine Ketones 1+ H (Negative) Hyaline Casts Present A (None Presnt) /lpf 05/22/24 Range/Units 13:54 WBC (4.8-10.8) K/ul RBC (4.20-5.40) M/uL MPV (9.4-12.4) fL Neut # (Auto) (1.40-6.50) K/uL Lymph # (Auto) (1.20-3.40) K/uL [place] # (Auto) (0.11-0.59) K/uL Sodium (136-145) mmol/L Potassium (3.5-5.1) mmol/L POC Chloride (101-112) mmol/L POC Total CO2 (24-31) mmol/L Anion Gap (3-11) POC BUN (7-18) mg/dl BUN (6-23) mg/dl BUN/Creatinine Ratio (10-20) Glucose (70-99(Fasting)) mg/dl POC Glucose (other) (70-99) mg/dl Lactate 3.9 H* (0.4-2.0) mmol/L POC Ioniz Calcium Ozzie (1.12-1.32) mmol/l Magnesium (1.7-2.4) mg/dl Alkaline Phosphatase (34-104) U/L Troponin I High Sens (0-14) pg/ml Urine Protein (Negative) Urine Glucose (UA) (Negative) Urine Ketones (Negative) Hyaline Casts (None Presnt) /lpf Diagnostic Findings Chest X-Ray 05/22/24 12:40 XR chest 1V portable CLINICAL HISTORY: weakness COMPARISON STUDY: Chest radiograph February 13, 2024. FINDINGS: Left subclavian pacer is in place. There is no pneumothorax or pleural effusion. Pulmonary vascularity is normal. No consolidation to suggest pneumonia. Linear left midlung density and right perihilar nodular opacities are chronic. The appearance of the chest is unchanged. Skinfolds project over the chest. IMPRESSION: No acute cardiopulmonary findings. No change in appearance of the chest. ACT 112: Negative or not required by law. Electronically signed by: Han Couch M.D. 05/22/2024 1:[address] 05/22/24 12:41 CT OF THE HEAD WITHOUT CONTRAST CLINICAL HISTORY: Confusion. COMPARISON STUDY: Head CT February 13, 2024. CT DOSE: 547.75 mGy.cm TECHNIQUE: Helical axial images of the head were obtained without IV contrast. Automated exposure control was utilized for the study. A dose lowering technique was utilized adhering to the principles of ALARA. FINDINGS: No acute intracranial hemorrhage, midline shift or mass effect is present. Prominence of the extra-axial spaces is unchanged and due to atrophy. The ventricular system is unremarkable. The basal cisterns are patent. No extra- axial collections are present. There are no findings to suggest acute dural sinus thrombosis or acute territorial infarct. No significant calvarial abnormalities are present. Visualized portions of the sinuses and mastoid air cells are clear. IMPRESSION: No acute intracranial findings. No change in appearance of the brain. ACT 112: Negative or not required by law. Electronically signed by: Han Couch M.D. 05/22/2024 2:57 PM ECG Additional Comments: Atrial paced rhythm without acute ST segment or T wave changes Code Status & VTE Plan Code Status DNR/DNI VTE Prophylaxis Plan VTE Prophylaxis will be ordered: Yes Supervising Physician Co-Signing Physician Notes Patient with h/o afib, PPM, anxiety, HTN, was seen and examined , patient is nonverbal , was able to follow commands to some degree , suspect acute/subacute CVA, as per daughter she was not taking her meds as prescribed, CT brain no acute pathology, can not have MRI brain, has PPM, CT head negative for CVA, hemorrhage will obtain CTA brain/neck consult neurology asa per rectum needs swallow eval PT/OT neuro checks she takes Ativan 1 mg po tid for anxiety Ativan PRN PG Care Time/CCT Total # of Minutes Spent Total Time Spent with Patient: Total time spent is greater than 50% in coordination of care (as documented) at patient's floor/unit and/or counseling patient: Coding Level of Care Code 09420 INT INP/OBS CARE 3/75MIN History Comprehensive Exam Comprehensive Medical Decision Making High Complexity Diagnoses Altered mental status R41.0 Altered mental status type: disorientation Elevated lactic acid level R79.89 Dehydration E86.0 Elevated troponin R79.[address] Z93.3 Paroxysmal atrial fibrillation I48.0 Anxiety F41.9 Hypothyroid E03.9 (1) Altered mental status Altered mental status type: disorientation Qualified Code(s): R41.0 - Disorientation, unspecified
[2024-05-22 15:16] LABS: Influenza A virus by PCR Negative (Neg); Influenza B virus by PCR Negative (Neg); RSV by PCR Negative (Neg); SARS CoV2 RNA(COVID-19) Ceph NEGATIVE (Negative)
[2024-05-22] MEDS: MAGNESIUM SULFATE / D5W 1 GM/100 ML BAG IV STA (15:29)
[2024-05-22] MEDS: LORazepam 1 MG/1 ML SYR ED Inj Use ONE (15:30)
[2024-05-22] MEDS: LORazepam 1 MG/1 ML SYR ED Inj Use IV STA (15:30)
[2024-05-22] MEDS ORDERED: METOPROLOL TARTRATE 1 MG/ML VIAL IV PRN (15:47)
--- NOTE | 2024-05-22 16:26 | XRay Report ---
XR hips TERA 1v w pelvis CLINICAL HISTORY: fall, right LE shortening/contracture COMPARISON: Pelvis and right hip radiographs and CT of the abdomen and pelvis March 17, 2024. FINDINGS: Sacroiliac joints and symphysis pubis are intact. There are expected postoperative finding s following internal fixation of the intertrochanteric fracture with trochanteric nail. Partial inter miguel healing is noted. Hardware is intact. Alignment appears unchanged. No additional fractures within the pelvis or hips. IMPRESSION: 1. No acute fractures within the pelvis or hips. 2. Status post internal fixation of the intertrochanteric fracture of the right femur trochanteric na il. Partial interval healing. No change in alignment. Hardware intact. ACT 112: Negative or not required by law. Electronically signed by: Han Couch M.D. 05/22/2024 4:24 PM
[2024-05-22] MEDS: OPTIRAY 320 125ml IV ONE (16:56)
--- NOTE | 2024-05-22 17:16 | CT Scan Report ---
CT ANGIOGRAPHY OF THE NECK WITH CONTRAST CLINICAL HISTORY: Altered mental status. Fall. COMPARISON STUDY: Cervical spine CT February 13, 2024. Technique: CT angiography of the carotid and vertebral arteries was obtained using Optiray and 3D rec onstruction on an independent workstation. NASCET criteria was utilized. Automated exposure control was utilized for the study. A dose lowering technique was utilized adhering to the principles of ALA RA. Findings: Visualized portions of the lung apices are unremarkable. No acute cervical spine fractures are noted. There are healing fractures of the spinous processes of C4 and C5 which were shown on CT o f February 13, 2024. There is no prevertebral edema. There is severe narrowing of the proximal right international organizer al carotid artery with approximate 95% stenosis. No additional stenoses within the bilateral common c arotid, cervical internal carotid or vertebral arteries are present. There is moderate plaque within the distal left common carotid artery without significant stenosis. IMPRESSION: 1. 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 2. Moderate calcified plaque within the distal left common carotid artery without stenosis. ACT 112: Negative or not required by law. Electronically signed by: Han Couch M.D. 05/22/2024 5:14 PM
--- NOTE | 2024-05-22 17:20 | CT Scan Report ---
CTA ANGIOGRAPHY OF THE HEAD CLINICAL HISTORY: Altered mental status. COMPARISON STUDY: Head CTs February 13, 2024 and May 22, 2024. TECHNIQUE: Helical axial images of the head were obtained following uneventful intravenous administr ation of 119 cc of Optiray. Sagittal and coronal reconstructions were viewed as well as maximal inten sity projections on an independent 3-D workstation. Automated exposure control was utilized for the study. A dose lowering technique was utilized adhering to the principles of ALARA. CT DOSE: 283.54 mGy.cm FINDINGS: Both anterior cerebral arteries arise from the left internal carotid artery. No vessel occl usion within the anterior intracranial circulation is present. There is no intracranial aneurysm. The re is mild plaque within the cavernous carotids without stenosis. The left vertebral artery is domina nt. The basilar artery is patent. There are moderate to severe multifocal stenoses within the bilater al P2 segments. No abrupt vessel cut off is identified. Prominence of the extra-axial spaces is uncha nged and due to atrophy. Ventricular system is unremarkable. Basal cisterns are patent. IMPRESSION: 1. 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 2. No large vessel occlusion. No intracranial aneurysm. ACT 112: Negative or not required by law. Electronically signed by: Han Couch M.D. 05/22/2024 5:18 PM
[2024-05-22] MEDS ORDERED: PHARMACIST DISCHARGE MED REC CONSULT PRN (17:34)
[2024-05-22] MEDS: LACTATED RINGER'S 1,000 ML IV SCH (17:59)
[2024-05-22] MEDS: MAGNESIUM SULFATE / D5W 1 GM/100 ML BAG IV SCH (18:13)
[2024-05-22] MEDS: HEPARIN SODIUM/DEXTROSE 25,000 UNITS/500 ML BAG IV SCH (19:21)
[2024-05-22] MEDS: Heparin IV Adult Wt-Based Low-Dose *NO* INITIAL Bolus Protocol IV STA (19:22)
[2024-05-22] MEDS: ASPIRIN 325 MG ECTAB PO STA (20:29)
[2024-05-22] MEDS ORDERED: LORazepam 1 MG/1 ML SYR ED Inj Use IV SCH (21:00)
[2024-05-22] MEDS: ATORVASTATIN 40 MG TAB PO SCH (21:33)
[2024-05-22] MEDS: POTASSIUM CHLORIDE / WTR 10 MEQ/100 ML PLCT IV SCH (21:48)
[2024-05-22] MEDS: cefTRIAXone SODIUM 2,000 MG/50 ML BAG IV SCH (21:49)
[2024-05-22] MEDS: LORazepam 1 MG in SYRINGE 0.5 ML IV SCH (21:57)
[2024-05-23 02:21] LABS: Basophils # (auto) 0.04 K/uL (0.00-0.20); Basophils % (auto) 0.4 %; Eosinophils # (auto) 0.05 K/uL (0.00-0.50); Eosinophils % (auto) 0.5 %; Hematocrit (blood only) 31.1 % (37.0-47.0); Hemoglobin 10.6 g/dl (12.0-16.0); Immature Granulocytes # (auto) 0.06 K/uL (0.01-0.20); Immature Granulocytes % (auto) 0.6 %; Lymphocytes % (auto) 12.4 %; Mean Corpuscular Hemoglobin 32.5 pg (25.0-34.0); Mean Corpuscular Hgb Conc 34.1 g/dL (32.0-36.0); Mean Corpuscular Volume 95.4 fL (80.0-100.0); Mean Platelet Volume 8.7 fL (9.4-12.4); Monocytes # (auto) 0.95 K/uL (0.11-0.59); Monocytes % (auto) 9.8 %; Neutrophils # (auto) 7.38 K/uL (1.40-6.50); Neutrophils % (auto) 76.3 %; Platelet Count 238 K/uL (130-400); RDW Coefficient of Variation 13.7 % (11.5-14.5); RDW Standard Deviation 48.5 fL (36.4-46.3); Red Blood Count 3.26 M/uL (4.20-5.40); White Blood Count 9.68 K/ul (4.8-10.8)
[2024-05-23 02:45] LABS: Albumin Globulin Ratio 1.2 (0.9-2); Albumin Level 2.9 gm/dl (3.4-5.0); BUN Creatinine Ratio 19.1 (10-20); Bilirubin,Total 0.6 mg/dl (0.2-1.0); Chol HDL Ratio 3.6 (0-5); Creatinine Clr Calc Pharmacy 29.1 ml/min; Est GFR (African American) 67.5 ml/min; Est GFR (Non-African American) 58.3 ml/min; Globulin 2.4 gm/dl (2.5-4.0); Magnesium 2.1 mg/dl (1.7-2.4); Potassium 3.5 mmol/L (3.5-5.1); Total Protein 5.3 gm/dl (6.0-8.3)
[2024-05-23 02:46] LABS: ANTI-Xa, UFH(UnfractionatedHep 0.57 IU/ml (0.3-0.7)
[2024-05-23 02:48] LABS: INR 1.1 (0.9-1.1)
[2024-05-23] MEDS: LEVOTHYROXINE SODIUM 25 MCG TABLET PO SCH (03:42)
[2024-05-23 07:15] LABS: Estimated Average Glucose 105 mg/dl; Hemoglobin A1C 5.3 % (4.5-5.6)
--- NOTE | 2024-05-23 08:27 | Neurology Consultation ---
Date of Consultation May 23, 2024 Assessment & Plan (1) Altered mental status: History of Present Illness Attending Physician: Lisa Epps MD History of Present Illness S: pt this morning alert and feeling well. no headache or pain. pt able to carry out good conversation but at times with tangential thoughts. CT head negative. CTA with b/l CAR B[employer]CH[employer]IC mod/severe stenosis. pt denies weakness. Admission HPI: Lali is an 88-year-old female with a past medical history including cardiac pacemaker, tachy-bradycardia syndrome, paroxysmal atrial fibrillation, depression, anxiety, hypothyroidism, and dementia who presented to the [facility] ED on 05/22/2024 via EMS due to concerns of acute confusion noticed by her daughter this morning when her daughter arrived to the patient's house. On arrival to the ED she was noted to be hypertensive at 180/84, tachycardic at 94, but otherwise stable. Labs were significant for leukocytosis of 12.9 with neutrophil predominance of 10.5, initial lactate of 3.9, elevated creatinine and BUN but not high enough for official JESS, glucose within normal limits, mag of 1.4, initial high-sensitivity troponin of 21, UA without signs of infection, with COVID-19/influenza/RSV screen in process. CT of the head and brain without contrast and chest x-ray were read as negative for acute findings. Prior to admission the patient was given 1.5 L NSS, a dose of cefepime, and 1 g IV mag sulfate. Patient was lying in bed in no obvious distress with her daughter sitting bedside, history was obtained from the patient's daughter due to her current mental status. Her daughter explains that at baseline the patient is normally very independent and cognitively intact. The patient lives at home alone but family checks on her multiple times a week. Her daughter helps the patient organize her medications. Her daughter explains over the past week the patient has had initially intermittent confusion. This would often happen towards the end of the day. During some phone calls this past week the patient's daughter explains that the patient thought her was trying to call her on her phone. The patient had 1 fall witnessed by the patient's other daughter, family explains that it was a very short fall from the couch to the ground, the patient did not hit her head or lose consciousness. The patient's daughter called EMS this morning when she found her mother even more confused than earlier this week. Her daughter does not think that she has taken any of her home medications since the morning of 05/19/2024. Patient's daughter also explains that she found an open and spilled bottle of Ativan between the couch and a coffee table. Patient's daughter explained to the patient has been taking 1 mg p.o. Ativan 3 times daily for approximately 30 years since the of her . Her daughter explains while these are ordered as needed she normally takes it 3 times daily. Daughter is unsure if the patient has been having increased ostomy output the past week. Due to the patient's current mental status she was unable to provide any history. The patient's daughter confirms that the patient is a DNR/DNI. Allergies Allergy/AdvReac Type Severity Reaction Status Date / Time verapamil AdvReac Severe "THINGS Verified 05/22/24 15:04 STARTED TO SHUT DOWN-HEART, B/P TILL GOT TO ER". aspirin AdvReac Mild GI UPSET, Verified 05/22/24 15:04 TAKES BABY ASA WITHOUT PROB Home Medications Medication Instructions Recorded Confirmed Type levothyroxine 25 mcg tablet 25 mcg PO QAM 07/03/18 05/22/24 History apixaban 2.5 mg tablet (Eliquis) 2.5 mg PO BID 30 days #60 tabs 10/20/21 05/22/24 Rx pantoprazole 20 mg tablet,delayed 40 mg PO QAM 05/27/22 05/22/24 History release (Protonix) eridbakgpg-lqowxpxboowwf-djdorkpa 1 tab PO Q4H PRN Migraine Headache 05/22/24 05/22/24 History 50 mg-325 mg-40 mg tablet cholecalciferol (vitamin D3) 125 125 mcg PO QPM 05/22/24 05/22/24 History mcg (5,000 unit) tablet (Vitamin D3) diltiazem HCl 240 mg 240 mg PO QPM 05/22/24 05/22/24 History capsule,extended release 24 hr (Cardizem CD) diphenhydramine HCl 25 mg tablet 25 mg PO QPM 05/22/24 05/22/24 History (Sleep Aid (diphenhydramine)) lorazepam 1 mg tablet 1 mg PO TID PRN Anxiety 05/22/24 05/22/24 History metoprolol succinate 200 mg 200 mg PO QAM 05/22/24 05/22/24 History tablet,extended release 24 hr potassium chloride 8 mEq 16 meq PO QAM 05/22/24 05/22/24 History capsule,extended release tramadol 50 mg tablet 50 mg PO Q6H PRN Pain 05/22/24 05/22/24 History Patient History Medical History Hypokalemia Left-sided chest pain Asymptomatic bacteriuria Atrial fibrillation with rapid ventricular response Pacemaker lead malfunction Acute dehydration Hypomagnesemia Dysrhythmia Dizziness SVT (supraventricular tachycardia) Abnormal urinalysis Hypomagnesemia Hypokalemia Headache History of pulmonary embolism Leukocytosis Partial small bowel obstruction Abdominal pain, epigastric Trouble swallowing CERTAIN FOODS WILL STICK WHEN SWALLOWING Cerumen impaction Seasonal allergies Weight loss 30+ lb weight loss in lst 6 months Chronic back pain PAIN TO BOTH LEGS Osteoarthritis Depression Anxiety History of palpitations "skips beats" Hypertension Chronic nausea GERD (gastroesophageal reflux disease) Migraine Poor historian Pulmonary embolism 4-5 years ago - asymptomatic - incidental finding - treated w/ blood thinners x 6 months, cause? Lung nodules previously biopsied - benign Intractable nausea and vomiting Chest pain, rule out acute myocardial infarction Anorexia Abnormal EKG Pulmonary hypertension GERD (gastroesophageal reflux disease) Surgical History History of colonoscopy History of hernia repair History of Lloyd fundoplication Hx of thyroidectomy PARTIAL Nausea and vomiting after administration of anesthetic agent Hx of bladder repair surgery FOR SUPPORT History of surgery left elbow Hx of cholecystectomy Hx of tonsillectomy S/P ANKIT-BSO HX History of esophagogastroduodenoscopy (EGD) w/ dilatation History of colostomy 10 -12years - placed b/c of incontinence (cause??) History of bronchoscopy Family History Mother Hypertension Cancer Father Cancer Other No family history of adverse response to anesthesia No family history of bleeding disorder Social History Smoking Status: Unknown if ever smoked Second Hand Exposure: No; Do You Dip or Chew Tobacco: No; Hx Alcohol Use: No Hx Substance Use: No Preferred Language: Frisian Communication Ability: Effective Laminating Press Operator Required: No Beliefs That Will Affect Care: None marital status: / Current Living Situation: Alone How many Children do You have: 4 Feels Safe at Home: Yes Safety Concerns: Feels Safe At This Time Assistive Devices: Cane and Glasses Review of Systems Review of Systems: All systems reviewed & are unremarkable except as noted in Subjective Constitutional: as per Subjective / HPI Eyes: as per Subjective / HPI Ear, Nose, Mouth, Throat: as per Subjective / HPI Respiratory: as per Subjective / HPI Cardiovascular: as per Subjective / HPI Gastrointestinal: as per Subjective / HPI Musculoskeletal: as per Subjective / HPI Integumentary: as per Subjective / HPI Neurologic: as per Subjective / HPI Psychiatric: as per Subjective / HPI Endocrine: as per Subjective / HPI Hematologic / Lymphatic: as per Subjective / HPI Allergy / Immunological: as per Subjective / HPI Exam (Neuro) Physical Exam: HEENT: normocephalic Neuro: Mental: Alert, knew May, she thought it was 1971, knew her age and knew she was in [employer]. not sure of the hospital name. not sure of president name (but able to name Andria with cue). able to carry out conversation and answer question well but at times having tangential thoughts. she knew about her passing away long time ago. not sure of the ativan or other med she patsy es. fluent speech, normal comprehension, no apraxia, no L/R confusion, no neglect. CN: PERRL, Full EOM, symmetric face, midline T/U/P, 5/5 SCM/traps. Motor: No abnormal movements, normal tone and bulk, 5-/5 t/o bilaterally Sens: intact to touch b/l grossly Coord: intact FNT b/l DTR: 1+ sym b/l Gait: deferred Impression: 89 yo female with mild confusion in setting of dehydration /malnutrition and underlying undiagnosed dementia and metabolic disorders. medication side effect (specially Ativan may contribute, rather than withdrawal, likely she took too many). I do not feel she had seizure. Pt also high risk for stroke given atrial fib hx and age, she may have suffered hypoperfusion syndrome or small ischemic event from dehydration and not taking her meds. Currently, she is clinically stable. Recommendations: 1. Standard stroke work up as planned 2. pt on heparin (was on eliquis as outp t, on heparin as pt was NPO). continue anticoag therapy. 3. Images: MRI brain (stroke protocol) p lanned for Friday after her pacemaker checked, TTE with bubble pending, CTA head/neck with b/l P2 mod/severe stenosis. 4. Permissive Hypertension for next 24-4 8 hrs. Keep SBP goal range less than 220. Avoid hypotension. Do not stop beta-derian if on it. 5. If noted for large intracranial vesse l stenosis, slow reduction of BP and allowing permissive HTN next 5-7 days. 6. Long-term SBP goal less than 130. 7. Plenty of hydration including IV flui d if possible (use isotonic solution) next 1-2 days. Avoid hypovolemia and hypotension. 8. Initiate DVT prevention therapy. 9. Avoid hypoglycemia, serum glucose goa l during hospitalization: 140-180. 11. Start statin if not on it and no abs olute contraindication, long-term LDL goal less than 70. 12. Head of bed up 30 degrees if possibl e. avoid dehydration and continue eval for infection and metabolic disorders 15. Fall precaution and aspiration preca ution. 16. Consult physical and occupational th erapy evaluation. 17. consider nutritional consult avoid using too much Ativan (consider cutting back on the dose to once day, she was apparently taking it tid) and sedating meds and anticholinergic and antidopaminergic meds. will hold off on starting aricept. she can have routine f/u as outpt neurology clinic for dementia evaluation Chart reviewed I have spent more than 50% educating patient about potential diagnosis and neurological evaluation and coordinating care with patient's treatment team. Total time spent (including chart review and coordination of care): 60 min (this includes chart review). Results & Data Vital Signs (Past 12 Hours) Vital Signs Temp Pulse Pulse Resp BP Pulse Ox O2 Del Method 05/23/24 07:44 60 05/23/24 03:23 36.9 C 60 18 138/80 95 Room Air 05/22/24 23:34 60 05/22/24 23:14 36.8 C 90 18 139/75 94 Room Air PG Care Time/CCT Total # of Minutes Spent Total Time Spent with Patient: Total time spent is greater than 50% in coordination of care (as documented) at patient's floor/unit and/or counseling patient: Coding Level of Care Code 29909 IN/OBS CONSULT LVL 4,60M Diagnoses Altered mental status R41.0 Altered mental status type: disorientation (1) Altered mental status Altered mental status type: disorientation Qualified Code(s): R41.0 - Disorientation, unspecified
--- NOTE | 2024-05-23 08:28 | Electrocardiogram Report ---
Test Reason : Blood Pressure : */* mmHG Vent. Rate : 67 BPM Atrial Rate : 67 BPM P-R Int : 278 ms QRS Dur : 66 ms QT Int : 418 ms P-R-T Axes : 62 35 -78 degrees QTcB Int : 441 ms Poor data quality, interpretation may be adversely affected Atrial-paced rhythm with prolonged AV conduction Diffuse Nonspecific ST and T wave abnormality Abnormal ECG When compared with ECG of 15-Feb-2024 02:31, Electronic atrial pacemaker has replaced Atrial fibrillation Vent. rate has decreased by [address] less depressed in Anterolateral leads Confirmed by Carlos Smith ([id number]) on 05/23/2024 8:27:43 AM Referred By: Confirmed By: Carlos Smith
[2024-05-23] MEDS ORDERED: ASPIRIN 81 MG ECTAB PO SCH (09:00)
[2024-05-23] MEDS ORDERED: ENOXAPARIN 1 MG/KG SQ SCH (09:30)
[2024-05-23] MEDS: APIXABAN 2.5 MG TAB PO ONE (09:48)
[2024-05-23] MEDS: ENOXAPARIN INJ 40 MG/0.4 ML SYR SQ SCH (10:04)
--- NOTE | 2024-05-23 13:50 | XCELERA ---
[id number]
[2024-05-23] MEDS ORDERED: LORazepam 0.5 MG TAB PO SCH (14:00)
--- NOTE | 2024-05-23 14:41 | Hospitalist Progress Note ---
Date of Service May 23, 2024 Assessment & Plan (1) Elevated troponin: (2) Hypomagnesemia: (3) Elevated lactic acid level: (4) Leukocytosis: (5) Altered mental status: (6) HTN (hypertension): (7) Cardiac pacemaker: (8) Anticoagulant long-term use: (9) Hypothyroid: (10) Anxiety: Plan Confusion - ? Toxic encephalopathy due to meds / ? Ativan Resolved Decrease the dose of ativan to 0.5mg No infectious etiology r/o Acute neuro event CTA Neck - 95% Right ICA stenosis Continue ASA, Statin Vascular surgery consultation Neuro eval completed, check MRI Brain if PPM MRI compatible Hypertension If Acute neuro event is ruled out, aim for optimal BP control Afib Paced, Hold Eliquis in anticipation of vascular procedure Start Lovenox Hypothyroid Cont Levothyroxine Anxiety PRN Lorazepam OOB W assist Fall precautions PT/OT DVT Px On Lovenox Full code Admission and Anticipated Discharge Date Admission Date: May 22, 2024 Subjective says feels much better, no longer confused, gen weakness, good appetite, no complaints at this time Physical Exam Physical Exam: AAO#3, Grossly non focal, gait not assessed Pleasant and cooperative Lungs clear to auscultation Heart RRR PA Soft, NT, ND, BS+ Skin no rash Results & Data Results & Data Vital Signs (Past 12 Hours) Vital Signs Temp Pulse Pulse Resp BP Pulse Ox O2 Del Method 05/23/24 13:49 60 05/23/24 11:09 36.6 C 75 16 144/80 H 97 Room Air 05/23/24 08:58 Room Air 05/23/24 08:16 36.7 C 60 59 H 160/76 H 97 Room Air 05/23/24 07:44 60 05/23/24 03:23 36.9 C 60 18 138/80 95 Room Air PG Care Time/CCT Total # of Minutes Spent Total Time Spent with Patient: Total time spent is greater than 50% in coordination of care (as documented) at patient's floor/unit and/or counseling patient: Coding Level of Care Code 36171 SUB INP/OBS CARE 2/35MIN Diagnoses Elevated troponin R79.89 Hypomagnesemia E83.42 Elevated lactic acid level R79.89 Leukocytosis D72.829 Leukocytosis type: unspecified Altered mental status R41.0 Altered mental status type: disorientation HTN (hypertension) I10 Cardiac pacemaker Z95.0 Anticoagulant long-term use Z79.01 Hypothyroid E03.9 Anxiety F41.9 (4) Leukocytosis Leukocytosis type: unspecified Qualified Code(s): D72.829 - Elevated white blood cell count, unspecified (5) Altered mental status Altered mental status type: disorientation Qualified Code(s): R41.0 - Disorientation, unspecified
[2024-05-23] MEDS ORDERED: APIXABAN 2.5 MG TAB PO SCH (21:00)
[2024-05-24 06:11] LABS: Basophils # (auto) 0.04 K/uL (0.00-0.20); Basophils % (auto) 0.6 %; Eosinophils # (auto) 0.16 K/uL (0.00-0.50); Eosinophils % (auto) 2.3 %; Hematocrit (blood only) 33.5 % (37.0-47.0); Hemoglobin 11.4 g/dl (12.0-16.0); Immature Granulocytes # (auto) 0.11 K/uL (0.01-0.20); Immature Granulocytes % (auto) 1.6 %; Lymphocytes # (auto) 1.19 K/uL (1.20-3.40); Lymphocytes % (auto) 17.4 %; Mean Corpuscular Hemoglobin 32.9 pg (25.0-34.0); Mean Corpuscular Volume 96.5 fL (80.0-100.0); Mean Platelet Volume 8.6 fL (9.4-12.4); Monocytes # (auto) 0.65 K/uL (0.11-0.59); Monocytes % (auto) 9.5 %; Neutrophils # (auto) 4.69 K/uL (1.40-6.50); Neutrophils % (auto) 68.6 %; Platelet Count 222 K/uL (130-400); RDW Coefficient of Variation 13.5 % (11.5-14.5); RDW Standard Deviation 47.8 fL (36.4-46.3); Red Blood Count 3.47 M/uL (4.20-5.40); White Blood Count 6.84 K/ul (4.8-10.8)
[2024-05-24 06:26] LABS: BUN Creatinine Ratio 17.6 (10-20); Calcium 8.1 mg/dl (8.6-10.3); Creatinine Clr Calc Pharmacy 23.8 ml/min; Est GFR (African American) 57.3 ml/min; Est GFR (Non-African American) 49.4 ml/min; Magnesium 1.6 mg/dl (1.7-2.4); Potassium 3.3 mmol/L (3.5-5.1)
--- NOTE | 2024-05-24 09:21 | Consultation ---
Date of Consultation May 24, 2024 Assessment & Plan (1) Carotid stenosis, right: Pt with asymptomatic severe R ICA stenosis, and is at significant risk of CVA. Due to this risk, recommend pt be seen in office in 1-2 weeks to discus surgical options. Pt agreeable. Office will call pt/daughter to schedule. History of Present Illness Reason for Consultation: R ICA stenosis Attending Physician: Lenora Cleveland MD History of Present Illness 89 yo f with hx of HTN, tachy-roge syndrome s/p pacemaker insertion, A fib, depression, anxiety, hypothyroidism, GERD, dementia, migraines, admitted with altered mental status, seen in consultation today for R ICA stenosis noted on neck CTA. Pt with mild dementia at baseline. Per chart, pt very confused upon arrival and unable to carry on a conversation. No documentation of any focal, unilateral sx. Pt was dehydrated. Per family, pt had not been taking her medications, which likely contributed. Pt admits fatigue. Denies any amaurosis, unilateral weakness or numbness, facial droop, aphasia. Pt denies SUMMERS, fever, recent illness, chest pain, palpitations, SOB, abd pain, N/V, claudication, rest pain, ulcerations, other complaints. Pt lives alone, her 2 daughters check on her regularly. She is still recovering from a R hip fx in 03/05. CTA head/neck demonstrates 95% stenosis R ICA. Allergies Allergy/AdvReac Type Severity Reaction Status Date / Time verapamil AdvReac Severe "THINGS Verified 05/22/24 15:04 STARTED TO SHUT DOWN-HEART, B/P TILL GOT TO ER". aspirin AdvReac Mild GI UPSET, Verified 05/22/24 15:04 TAKES BABY ASA WITHOUT PROB chocolate AdvReac Gastrointestinal Verified 05/23/24 14:53 Upset lactose AdvReac Gastrointestinal Verified 05/23/24 14:54 Upset Home Medications Medication Instructions Recorded Confirmed Type levothyroxine 25 mcg tablet 25 mcg PO QAM 07/03/18 05/22/24 History apixaban 2.5 mg tablet (Eliquis) 2.5 mg PO BID 30 days #60 tabs 10/20/21 05/22/24 Rx pantoprazole 20 mg tablet,delayed 40 mg PO QAM 05/27/22 05/22/24 History release (Protonix) royamktyji-fvwuadtfsplci-abbuhltg 1 tab PO Q4H PRN Migraine Headache 05/22/24 05/22/24 History 50 mg-325 mg-40 mg tablet cholecalciferol (vitamin D3) 125 125 mcg PO QPM 05/22/24 05/22/24 History mcg (5,000 unit) tablet (Vitamin D3) diltiazem HCl 240 mg 240 mg PO QPM 05/22/24 05/22/24 History capsule,extended release 24 hr (Cardizem CD) diphenhydramine HCl 25 mg tablet 25 mg PO QPM 05/22/24 05/22/24 History (Sleep Aid (diphenhydramine)) lorazepam 1 mg tablet 1 mg PO TID PRN Anxiety 05/22/24 05/22/24 History metoprolol succinate 200 mg 200 mg PO QAM 05/22/24 05/22/24 History tablet,extended release 24 hr potassium chloride 8 mEq 16 meq PO QAM 05/22/24 05/22/24 History capsule,extended release tramadol 50 mg tablet 50 mg PO Q6H PRN Pain 05/22/24 05/22/24 History Patient History Medical History Hypokalemia Left-sided chest pain Asymptomatic bacteriuria Atrial fibrillation with rapid ventricular response Pacemaker lead malfunction Acute dehydration Hypomagnesemia Dysrhythmia Dizziness SVT (supraventricular tachycardia) Abnormal urinalysis Hypomagnesemia Hypokalemia Headache History of pulmonary embolism Leukocytosis Partial small bowel obstruction Abdominal pain, epigastric Trouble swallowing CERTAIN FOODS WILL STICK WHEN SWALLOWING Cerumen impaction Seasonal allergies Weight loss 30+ lb weight loss in lst 6 months Chronic back pain PAIN TO BOTH LEGS Osteoarthritis Depression Anxiety History of palpitations "skips beats" Hypertension Chronic nausea GERD (gastroesophageal reflux disease) Migraine Poor historian Pulmonary embolism 4-5 years ago - asymptomatic - incidental finding - treated w/ blood thinners x 6 months, cause? Lung nodules previously biopsied - benign Intractable nausea and vomiting Chest pain, rule out acute myocardial infarction Anorexia Abnormal EKG Pulmonary hypertension GERD (gastroesophageal reflux disease) Surgical History History of colonoscopy History of hernia repair History of Lloyd fundoplication Hx of thyroidectomy PARTIAL Nausea and vomiting after administration of anesthetic agent Hx of bladder repair surgery FOR SUPPORT History of surgery left elbow Hx of cholecystectomy Hx of tonsillectomy S/P ANKIT-BSO HX History of esophagogastroduodenoscopy (EGD) w/ dilatation History of colostomy 10 -12years - placed b/c of incontinence (cause??) History of bronchoscopy Family History Mother Hypertension Cancer Father Cancer Other No family history of adverse response to anesthesia No family history of bleeding disorder Social History Smoking Status: Unknown if ever smoked Second Hand Exposure: No; Do You Dip or Chew Tobacco: No; Hx Alcohol Use: No Hx Substance Use: No Preferred Language: American Communication Ability: Effective Transportation Department Supervisor Required: No Beliefs That Will Affect Care: None marital status: / Current Living Situation: Alone How many Children do You have: 4 Feels Safe at Home: Yes Safety Concerns: Feels Safe At This Time Assistive Devices: Walker Review of Systems Review of Systems: All systems reviewed & are unremarkable except as noted in HPI & below Physical Exam Constitutional: WD/WN, vitals as above + thin, + frail appearing, cooperative and comfortable; not in distress ENMT: Ears: no hearing impairment Neck: trachea midline Respiratory: normal respiratory effort, lungs clear to auscultation Auscultation: + diminished lung sounds Cardiovascular: Rate/Rhythm: regular rate and regular rhythm Vessels: femoral pulses present, posterior tibial pulses present (RLE +2, LLE +2) and dorsalis pedis pulses present (RLE +3, LLE +1); + abnormal peripheral pulses Extremities: normal capillary refill; no edema Gastrointestinal (Abdomen): Inspection/Auscultation: normal bowel sounds; + abdomen abnormal to inspection (colostomy noted) Percussion/Palpation: abdomen soft; abdomen nontender Musculoskeletal: no cyanosis or clubbing, extremities motor strength 5/5 Skin: no rashes, warm and dry Neurologic: moves all extremities and awake; no focal motor deficits and not confused (minimally) Speech / Cognition: no expressive aphasia and no receptive aphasia Psychiatric: A+Ox3, euthymic affect (knows location, date, but unable to state president) Results & Data Vital Signs (Past 12 Hours) Vital Signs Temp Pulse Pulse Resp BP BP Pulse Ox 05/24/24 07:52 36.9 C 86 19 161/103 H 98 05/24/24 07:24 67 05/24/24 02:54 37.2 C 63 14 143/83 H 97 05/23/24 22:51 64 05/23/24 22:41 37.2 C 62 14 145/81 H 95 O2 Del Method 05/24/24 07:52 Room Air 05/24/24 07:24 05/24/24 02:54 Room Air 05/23/24 22:51 05/23/24 22:41 Room Air
[2024-05-24] MEDS: MAGNESIUM SULFATE / D5W 1 GM/100 ML BAG IV SCH (09:42)
[2024-05-24] MEDS: POTASSIUM CHLORIDE CRTAB 20 MEQ TABCR PO STA (09:42)
[2024-05-24] MEDS: LORazepam 0.5 MG TAB PO PRN (12:41)
[2024-05-24] MEDS ORDERED: APIXABAN 2.5 MG TAB PO SCH (12:45)
--- NOTE | 2024-05-24 13:47 | Pharmacy Report ---
- Date of Service May 24, 2024 - Pharmacy CVA/TIA Medication Review Medications to Prevent Stroke handout has been added to the patients discharge packet. Antiplatelet(s) * aspirin 81mg PO daily Cholesterol * High intensity statin: atorvastatin 40 mg daily DVT Prophylaxis * N/A - therapeutic anticoagulation Therapeutic Anticoagulation * Hx Afib/Aflutter noted, and patient is currently receiving apixaban Type 2 Diabetes * Patient does not have T2DM
[2024-05-24] MEDS: METOPROLOL SUCC 50MG EXT REL TAB PO SCH (14:04)
[2024-05-24] MEDS: ASPIRIN 81 MG ECTAB PO SCH (14:05)
--- NOTE | 2024-05-24 15:43 | Magnetic Resonance Report ---
MR brain wo con HISTORY: 89 years-old Female AMS acutely altered mental status COMPARISON: CTA head 05/22/2024 TECHNIQUE: Multiplanar multisequence MRI of the brain was obtained without IV contrast. FINDINGS: No evidence of an acute territorial infarct. There are 2 subcentimeter adjacent foci demonstrating sl ightly increased diffusion-weighted signal on image 15 series 5 within the right frontal lobe urbano radiata and radiating intermediate to increased signal on the ADC map/FLAIR signal. The midline struc tures are unremarkable. Changes of the cervical spine. No acute intracranial hemorrhage, midline shif t, intra-axial mass or acute extra-axial collection. Additional changes with extensive T2/FLAIR hyper intense foci throughout the white matter. Cerebral venous sinuses and major arterial flow voids appear patent. Prior bilateral lens repair. IMPRESSION: 1. There are two adjacent subcentimeter foci of signal abnormality within the right frontal lobe casandra na radiata which may represent subacute lacunar infarcts versus T2 shine through associated with the underlying extensive chronic microvascular ischemic disease. 2. No acute intracranial hemorrhage or midline shift. ACT 112: Negative or not required by law. The above report was generated using voice recognition software. It may contain grammatical, syntax o r spelling errors. Electronically signed by: Faisal Payne M.D. 05/24/2024 3:42 PM
--- NOTE | 2024-05-24 17:00 | Hospitalist Progress Note ---
Date of Service May 24, 2024 Assessment & Plan (1) CVA (cerebral vascular accident): Plan: Presented with metabolic encephalopathy, possibly toxic encephalopathy due to either taking too much Ativan or withdrawal from Ativan? No infectious etiology. Lactate likely elevated due to dehydration on admission from poor p.o. intake Stroke workup now completed-MRI brain does confirm to likely subacute lacunar infarcts in the frontal lobe of the right urbano radiata which could have contributed CT angiogram of the head and neck show severe short segment stenosis of the proximal right ICA 95%, and moderate-severe multifocal stenoses in bilateral P2 segments of posterior cerebral arteries. No large vessel occlusion or aneurysm. Fortunately, her mentation has improved and she has no neurological deficits Appreciate neurology consultation Okay to control blood pressure now will resume home diltiazem, metoprolol given that she had an episode of SVT versus a flutter today Start aspirin 81 mg daily Started atorvastatin 40 mg daily-total cholesterol 155, LDL 94 Hemoglobin A1c normal at 5.3% Echocardiogram with bubble study shows a mild dynamic left ventricular outflow tract obstruction, moderate TR, mildly elevated RVSP 30-40 mmHg, negative bubble study Decreased the dose of ativan to 0.5mg p.o. 3 times daily PT/OT recommend rehab Appreciate vascular surgery consultation-I discussed her case with the surgeon- he will plan to expedite her carotid endarterectomy (2) Carotid stenosis, right: Plan: As above, severe, needs carotid endarterectomy Appreciate vascular consultation (3) HTN (hypertension): Plan: Blood pressures are elevated but her blood pressure meds from home have been on hold Restart home diltiazem, metoprolol Monitor blood pressures (4) Hypomagnesemia: Plan: Low again today-replete with IV magnesium Hypokalemia-replete with oral potassium chloride Follow BMP and magnesium levels in the morning (5) Elevated troponin: Plan: Minimally elevated, in the setting of stroke, not acute coronary syndrome, no ECG ischemic changes (6) Severe malnutrition: Plan: severe malnutrition The medical record reflects the following clinical evidence: Clinical Indicators: Review of passenger relations representative consult indicates pt previous wt of 51.4 kg in February 2024, currently 40.8 kg, for a 20.6% wt loss over a 3 month period. However review of EMR revealed pt wt of 42.4 kg on March 17, 2024. This would be a wt loss of 8.5% with a current wt of 38.8 kg on 05/24. 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 twice daily Resume home diltiazem and metoprolol (8) Hypothyroid: Plan: TSH normal at 2.7 Continue home levothyroxine 25 mcg daily (9) Anxiety: Plan: Continue lorazepam but decrease dose to 0.5 mg p.o. 3 times daily and would consider continuing to taper off if possible given advanced age A better option would be an SSRI Follow-up as an outpatient Plan DVT prophylaxis-stop Lovenox and resume home Eliquis for A-fib/flutter Disposition-continues to [facility], awaiting rehab placement Will call daughter with update Admission and Anticipated Discharge Date Admission Date: May 22, 2024 Subjective Patient denies any problems today. She had not yet gone for her brain MRI when I saw her she is a bit forgetful. Telemetry with normal sinus rhythm and paced rhythm with a brief episode of SVT in the 160s which quickly resolved Physical Exam Constitutional: + underweight; no acute distress Respiratory: normal respiratory effort, lungs clear to auscultation Cardiovascular: RRR, no murmur, no edema Gastrointestinal (Abdomen): normal bowel sounds, soft, nontender, no hepatosplenomegaly Neurologic: PERRL, EOMI, accommodation nl, no face palsy, no dysarthria + confused (Occasionally); no focal motor deficits Psychiatric: Orientation: alert, oriented to person and cooperative; + not oriented to place and + not oriented to time Results & Data Results & Data Vital Signs (Past 12 Hours) Vital Signs Temp Pulse Pulse Resp BP BP Pulse Ox 05/24/24 15:46 36.8 C 60 18 142/84 H 96 05/24/24 14:31 68 05/24/24 11:08 67 18 173/83 H 97 05/24/24 11:02 37.0 C 66 18 171/92 H 99 05/24/24 07:52 36.9 C 86 19 161/103 H 98 05/24/24 07:24 67 O2 Del Method 05/24/24 15:46 Room Air 05/24/24 14:31 05/24/24 11:08 Room Air 05/24/24 11:02 Room Air 05/24/24 07:52 Room Air 05/24/24 07:24 Laboratory Results CBC, BMP, magnesium reviewed PG Care Time/CCT Total # of Minutes Spent Total Time Spent with Patient: Total time spent is greater than 50% in coordination of care (as documented) at patient's floor/unit and/or counseling patient: Coding Level of Care Code 96016 SUB INP/OBS CARE 3/50MIN Diagnoses CVA (cerebral vascular accident) I63.9 Carotid stenosis, right I65.21 HTN (hypertension) I10 Hypomagnesemia E83.42 Elevated troponin R79.89 Severe malnutrition E43 Cardiac pacemaker Z95.0 Hypothyroid E03.9 Anxiety F41.9
[2024-05-24] MEDS: dilTIAZem HCL 240 MG CAPCR PO SCH (20:16)
[2024-05-24] MEDS: APIXABAN 2.5 MG TAB PO SCH (20:16)
[2024-05-24] MEDS: CHOLECALCIFEROL 125 MCG (5,000 UNITS) TAB PO SCH (20:16)
[2024-05-24] MEDS: LORazepam 0.5 MG TAB PO SCH (20:16)
[2024-05-25 06:43] LABS: Basophils # (auto) 0.04 K/uL (0.00-0.20); Basophils % (auto) 0.6 %; Eosinophils # (auto) 0.22 K/uL (0.00-0.50); Eosinophils % (auto) 3.5 %; Hematocrit (blood only) 30.7 % (37.0-47.0); Hemoglobin 10.6 g/dl (12.0-16.0); Immature Granulocytes # (auto) 0.03 K/uL (0.01-0.20); Immature Granulocytes % (auto) 0.5 %; Lymphocytes # (auto) 1.05 K/uL (1.20-3.40); Lymphocytes % (auto) 16.7 %; Mean Corpuscular Hemoglobin 32.6 pg (25.0-34.0); Mean Corpuscular Hgb Conc 34.5 g/dL (32.0-36.0); Mean Corpuscular Volume 94.5 fL (80.0-100.0); Mean Platelet Volume 8.7 fL (9.4-12.4); Monocytes # (auto) 0.52 K/uL (0.11-0.59); Monocytes % (auto) 8.3 %; Neutrophils # (auto) 4.41 K/uL (1.40-6.50); Neutrophils % (auto) 70.4 %; Platelet Count 226 K/uL (130-400); RDW Coefficient of Variation 13.4 % (11.5-14.5); RDW Standard Deviation 46.7 fL (36.4-46.3); Red Blood Count 3.25 M/uL (4.20-5.40); White Blood Count 6.27 K/ul (4.8-10.8)
[2024-05-25 07:02] LABS: BUN Creatinine Ratio 17.3 (10-20); Calcium 7.9 mg/dl (8.6-10.3); Creatinine Clr Calc Pharmacy 30.9 ml/min; Est GFR (African American) 83.1 ml/min; Est GFR (Non-African American) 71.7 ml/min; Magnesium 1.7 mg/dl (1.7-2.4); Potassium 3.6 mmol/L (3.5-5.1)
[2024-05-25] MEDS: PANTOprazole 40 MG TAB PO SCH (08:07)
[2024-05-25] MEDS: POTASSIUM CHLORIDE CRTAB 20 MEQ TABCR PO SCH (08:10)
[2024-05-25 11:15] VITALS: PULSE 61; RESP 17; TEMP 97.5; O2SAT 100
--- NOTE | 2024-05-25 11:19 | Surgery Progress Note ---
Date of Service May 25, 2024 Assessment & Plan (1) Carotid stenosis, right: Plan: MRI showed subacute strokes on the right. Would recommend carotid intervention for the severe right carotid stenosis. We went over the risks options and benefits with the patient and her daughter of both endarterectomy and TCAR. They appeared to understand all the risks options and benefits and prefer the TCAR procedure. She is a candidate for a TCAR. This is scheduled for Jun 09. We started her on plavix today. She needs to be on DAPT before the TCAR and non stop for 30days post op but preferable for a year post op. We will arrange Plavix testing after discharge to see if she is a nonresonder. Admission and Anticipated Discharge Date Admission Date: May 22, 2024 Subjective Patient awake and alert. No new complaints. Physical Exam Constitutional: WD/WN, vitals as above Respiratory: normal respiratory effort; no respiratory distress Neurologic: CN's II-XI intact bilaterally and moves all extremities Psychiatric: Orientation: alert Apperance: appropriately dressed, appropriately groomed and appeared stated age Eye Contact: good eye contact Speech: normal rate/rhythm/volume of speech Affect: euthymic affect Results & Data Vital Signs (Past 12 Hours) Vital Signs Temp Pulse Pulse Resp BP BP Pulse Ox 05/25/24 10:55 60 05/25/24 08:02 37.1 C 59 L 16 120/66 96 05/25/24 02:59 37.1 C 60 14 121/79 96 O2 Del Method 05/25/24 10:55 05/25/24 08:02 Room Air 05/25/24 02:59 Room Air
[2024-05-25] MEDS ORDERED: STROKE PATIENT DISCHARGE STA (12:28)
--- NOTE | 2024-05-25 12:37 | Discharge Summary ---
Discharge Summary Date of Service May 25, 2024 Principal Dx & Hospital Course #1 = Principal Diagnosis (1) CVA (cerebral vascular accident): Presented with metabolic encephalopathy, possibly toxic encephalopathy due to either taking too much Ativan or withdrawal from Ativan? No infectious etiology. Lactate likely elevated due to dehydration on admission from poor p.o. intake. Acute CVA likely precipitated the initial confusion Stroke workup now completed-MRI brain does confirm two likely subacute lacunar infarcts in the frontal lobe of the right urbano radiata CT angiogram of the head and neck show severe short segment stenosis of the proximal right ICA 95%, and moderate-severe multifocal stenoses in bilateral P2 segments of posterior cerebral arteries. No large vessel occlusion or aneurysm. Fortunately, her mentation has improved and she has no neurological deficits Appreciate neurology consultation Continue good BP control w/ diltiazem, metoprolol Started aspirin 81 mg daily and Vascular Surgery added Plavix 75mg daily before upcoming TCAR and should remain on DAPT for 30 days after TCAR, then Plavix alone (in addition to her chronic Eliquis) Started atorvastatin 40 mg daily-total cholesterol 155, LDL 94 Hemoglobin A1c normal at 5.3% Echocardiogram with bubble study shows a mild dynamic left ventricular outflow tract obstruction, moderate TR, mildly elevated RVSP 30-40 mmHg, negative bubble study Decreased the dose of ativan to 0.5mg p.o. 3 times daily PT/OT recommend rehab Appreciate vascular surgery consultation-TCAR scheduled for 06/09/24 (2) Carotid stenosis, right: As above, severe, needs carotid endarterectomy Appreciate vascular consultation Start DAPT, statin (3) HTN (hypertension): Blood pressures controlled Continue home diltiazem, metoprolol (4) Hypomagnesemia: repleted with IV magnesium and now normal Hypokalemia-repleted with oral potassium chloride and now normal (5) Elevated troponin: Minimally elevated, in the setting of stroke, not acute coronary syndrome, no ECG ischemic changes (6) Severe malnutrition: severe malnutrition The medical record reflects the following clinical evidence: Clinical Indicators: Review of front end technician consult indicates pt previous wt of 51.4 kg in February 2024, currently 40.8 kg, for a 20.6% wt loss over a 3 month period. However review of EMR revealed pt wt of 42.4 kg on March 17, 2024. This would be a wt loss of 8.5% with a current wt of 38.8 kg on 05/24. 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 twice daily Continue home diltiazem and metoprolol (8) Hypothyroid: TSH normal at 2.7 Continue home levothyroxine 25 mcg daily (9) Anxiety: Continue lorazepam but decreased dose to 0.5 mg p.o. 3 times daily and would consider continuing to taper off if possible given advanced age and h/o falls A better option would be an SSRI Follow-up as an outpatient Plan DVT prophylaxis- Eliquis Disposition-dc to rehab placement Discussed care with daughter on phone on 05/24 and with granddaughter at bedside on 05/25 Notes For Next Care Provider TCAR on right scheduled for 06/09 Medication Changes From Visit Added ASA 81mg daily x 6 weeks Added Plavix 75mg po daily Added atorvastatin 40mg daily Decreased lorazepam to 0.5mg po tid Admission HPI Per Admitting Provider Lali is an 88-year-old female with a past medical history including cardiac pacemaker, tachy-bradycardia syndrome, paroxysmal atrial fibrillation, depression, anxiety, hypothyroidism, and dementia who presented to the [facility] ED on 05/22/2024 via EMS due to concerns of acute confusion noticed by her daughter this morning when her daughter arrived to the patient's house. On arrival to the ED she was noted to be hypertensive at 180/84, tachycardic at 94, but otherwise stable. Labs were significant for leukocytosis of 12.9 with neutrophil predominance of 10.5, initial lactate of 3.9, elevated creatinine and BUN but not high enough for official JESS, glucose within normal limits, mag of 1.4, initial high-sensitivity troponin of 21, UA without signs of infection, with COVID-19/influenza/RSV screen in process. CT of the head and brain without contrast and chest x-ray were read as negative for acute findings. Prior to admission the patient was given 1.5 L NSS, a dose of cefepime, and 1 g IV mag sulfate. Patient was lying in bed in no obvious distress with her daughter sitting bedside, history was obtained from the patient's daughter due to her current mental status. Her daughter explains that at baseline the patient is normally very independent and cognitively intact. The patient lives at home alone but family checks on her multiple times a week. Her daughter helps the patient organize her medications. Her daughter explains over the past week the patient has had initially intermittent confusion. This would often happen towards the end of the day. During some phone calls this past week the patient's daughter explains that the patient thought her was trying to call her on her phone. The patient had 1 fall witnessed by the patient's other daughter, family explains that it was a very short fall from the couch to the ground, the patient did not hit her head or lose consciousness. The patient's daughter called EMS this morning when she found her mother even more confused than earlier this week. Her daughter does not think that she has taken any of her home medications since the morning of 05/19/2024. Patient's daughter also explains that she found an open and spilled bottle of Ativan between the couch and a coffee table. Patient's daughter explained to the patient has been taking 1 mg p.o. Ativan 3 times daily for approximately 30 years since the of her . Her daughter explains while these are ordered as needed she normally takes it 3 times daily. Daughter is unsure if the patient has been having increased ostomy output the past week. Due to the patient's current mental stat us she was unable to provide any history. The patient's daughter confirms that the patient is a DNR/DNI. Please refer to Dr. Reese's attestation for any changes to the treatment plan Discharge Exam Constitutional + underweight; no acute distress Respiratory normal respiratory effort, lungs clear to auscultation Cardiovascular RRR, no murmur, no edema Gastrointestinal (Abdomen) normal bowel sounds, soft, nontender, no hepatosplenomegaly Neurologic no focal motor deficits Psychiatric Orientation: alert, oriented to person and cooperative Updated Medication List Medication Instructions Recorded Confirmed Type levothyroxine 25 mcg tablet 25 mcg PO QAM 07/03/18 05/22/24 History apixaban 2.5 mg tablet (Eliquis) 2.5 mg PO BID 30 days #60 tabs 10/20/21 05/22/24 Rx pantoprazole 20 mg tablet,delayed 40 mg PO QAM 05/27/22 05/22/24 History release (Protonix) [id number] 1 tab PO Q4H PRN Migraine Headache 05/22/24 05/22/24 History 50 mg-325 mg-40 mg tablet cholecalciferol (vitamin D3) 125 125 mcg PO QPM 05/22/24 05/22/24 History mcg (5,000 unit) tablet (Vitamin D3) diltiazem HCl 240 mg 240 mg PO QPM 05/22/24 05/22/24 History capsule,extended release 24 hr (Cardizem CD) diphenhydramine HCl 25 mg tablet 25 mg PO QPM 05/22/24 05/22/24 History (Sleep Aid (diphenhydramine)) lorazepam 1 mg tablet 1 mg PO TID PRN Anxiety 05/22/24 05/22/24 History metoprolol succinate 200 mg 200 mg PO QAM 05/22/24 05/22/24 History tablet,extended release 24 hr potassium chloride 8 mEq 16 meq PO QAM 05/22/24 05/22/24 History capsule,extended release tramadol 50 mg tablet 50 mg PO Q6H PRN Pain 05/22/24 05/22/24 History aspirin 81 mg tablet,delayed 81 mg PO QAM #30 tabs 05/25/24 Rx release atorvastatin 40 mg tablet 40 mg PO QAM #30 tabs 05/25/24 Rx clopidogrel 75 mg tablet (Plavix) 75 mg PO DAILY #30 tabs 05/25/24 Rx Hospital Stay Data Consultations 05/22/24 15:02 ED Decision to Admit Stat 05/22/24 17:34 Consult Neurology Routine 05/23/24 09:14 Consult Vascular Surgery Routine Diagnostic Imagining Performed 05/22/24 12:41 CT head/brain wo con Stat 05/22/24 15:38 CTA head w con [CT angio head w con] Stat CTA neck with con [CT angio neck with con] Stat 05/24/24 08:05 MR brain wo con Routine ECHO Pending Results Patient Have Any Pending Studies at Discharge: No Discharge Instructions Given to Patient (Per Discharging Provider) You were admitted with confusion and weakness. It was determined that you had 2 small strokes likely caused by a severe narrowing of your right carotid artery. You were started on aspirin and Plavix in addition to your Eliquis blood thinner. You will need to stay on the Plavix and aspirin for at least 30 days after your carotid surgery and then go down to either Plavix or aspirin alone (while remaining on your Eliquis). You were also started on atorvastatin to help reduce your risk for future strokes. Your confusion on admission may have been from ativan use or overuse. Your dose was reduced to 0.5mg three times a day. It would be beneficial for you to wean completely off this in the future to reduce your risk of falls. You now need rehab for strengthening and balance. Risk Factors for Stroke: You can reduce your chances of stroke by working with your medical provider to adopt a healthy lifestyle. Some specific ways to lower your chance of stroke a re: * If you are a smoker, now is the time to stop smoking cigarettes * If you are diabetic, improve the control of your blood sugars * Avoid excessive amounts of alcohol * Control high blood pressure * Lose weight if you are overweight * Be sure to lead an active lifestyle * Eat a healthy diet low in salt, cholesterol and fat You should know about other risk factors for stroke that you are unable to c ontrol. These include: * Age 55 years or older * Male gender * Certain racial groups: , or / * Family History of Stroke, Mini stroke or Heart Attack * Sickle Cell Disease Follow Up: It is important for you to keep your follow up appointments with your medical provider. Who to Call and When: Medical Emergencies: Call 911 immediately if you experience any of the following warning signs and symptoms of Stroke: * Sudden numbness or weakness of the face, arm or leg, especially on one side of the body * Sudden confusion, trouble speaking or understanding * Sudden trouble seeing in one or both eyes * Sudden trouble walking, dizziness, loss of balance or coordination * Sudden severe headache with no cause Do not delay calling 911 if you experience any warning signs or symptoms of a stroke. Delay in seeking medical attention may affect what treatments can be given to you. . Total Time Total Time Spent Total Time Spent (In Minutes): 35 min Coding Level of Care Code 91385 INP/OBS DISCH >30 MIN Diagnoses CVA (cerebral vascular accident) I63.9 Carotid stenosis, right I65.21 HTN (hypertension) I10 Hypomagnesemia E83.42 Elevated troponin R79.89 Severe malnutrition E43 Cardiac pacemaker Z95.0 Hypothyroid E03.9 Anxiety F41.9
[2024-05-25 13:05] VITALS: BP 121/79
[2024-05-26] MEDS ORDERED: CLOPIDOGREL BISULFATE 75 MG TAB PO SCH (09:00)
== END 2024-05-25 14:09 | DRG 64 ==
LOC: ED 12:29 → SUATTDRO 15:06 → 2W 15:06 → 2S 18:40

== ENCOUNTER 2024-06-09 08:30 | Inpatient (IN) ==
--- NOTE | 2024-06-04 11:57 | Anesthesiology Consultation ---
Date of Service June 04, 2024 Assessment & Plan (1) Encounter for pre-operative examination: Chart Review Chart Review: Acceptable Risk for Surgery and Patient NOT seen in Pre Admission Testing Consults Requested none History Surgery Operation Date: 06/09/24 12:00 Proposed Procedures p Right Transcarotid Artery Revascularization - Av Guerra MD Height/Weight Height: 5 ft Weight: 36.741 kg Allergies Allergy/AdvReac Type Severity Reaction Status Date / Time verapamil AdvReac Severe "THINGS Verified 06/03/24 13:10 STARTED TO SHUT DOWN-HEART, B/P TILL GOT TO ER". aspirin AdvReac Mild GI UPSET, Verified 06/03/24 13:10 TAKES BABY ASA WITHOUT PROB lactose AdvReac Gastrointestinal Verified 06/03/24 13:10 Upset Medications Home Medications Medication Instructions Recorded Confirmed Last Taken levothyroxine 25 mcg tablet 25 mcg PO QAM 07/03/18 06/03/24 05/20/24 apixaban 2.5 mg tablet (Eliquis) 2.5 mg PO BID 30 days #60 tabs 10/20/21 06/03/24 05/20/24 08:00 pantoprazole 20 mg tablet,delayed 40 mg PO QAM PRN gerd 05/27/22 06/03/24 05/20/24 08:00 release (Protonix) [id number]-ihqpyidt 1 tab PO Q4H PRN Migraine Headache 05/22/24 06/03/24 Unknown 50 mg-325 mg-40 mg tablet cholecalciferol (vitamin D3) 125 125 mcg PO QPM 05/22/24 06/03/24 Unknown mcg (5,000 unit) tablet (Vitamin D3) diltiazem HCl 240 mg 240 mg PO QPM 05/22/24 06/03/24 Unknown capsule,extended release 24 hr (Cardizem CD) metoprolol succinate 200 mg 200 mg PO QAM 05/22/24 06/03/24 05/20/24 tablet,extended release 24 hr potassium chloride 8 mEq 16 meq PO QAM 05/22/24 06/03/24 05/20/24 capsule,extended release aspirin 81 mg tablet,delayed 81 mg PO QAM #30 tabs 05/25/24 06/03/24 Unknown release atorvastatin 40 mg tablet 40 mg PO QAM #30 tabs 05/25/24 06/03/24 Unknown clopidogrel 75 mg tablet (Plavix) 75 mg PO QAM 06/03/24 06/03/24 Unknown lorazepam 1 mg tablet 0.5 mg PO TID PRN Anxiety 06/03/24 06/03/24 Unknown Past Medical History Medical History (Updated 06/04/24 @ 11:56 by Slade Moy MD) Encounter for pre-operative examination Hx of tachycardia-bradycardia syndrome 02/2022, pacemaker placed Hypothyroidism CVA (cerebral vascular accident) 05/24/24, dr said she had 2 within 2 weeks of finding, no residual effects, brought to [facility] Anticoagulant long-term use Pacemaker 02/2022, [employer] Atrial fibrillation with rapid ventricular response currently on eliquis; f/u delmy murphy cardio. Hypomagnesemia Dysrhythmia had pacer placed, 02/2022 SVT (supraventricular tachycardia) hx; f/u delmy murphy Hypokalemia Headache resolved History of pulmonary embolism years ago- asymptomatic - incidental finding - treated w/ blood thinners x 6 months, cause? Leukocytosis hx Partial small bowel obstruction Trouble swallowing w/certain foods Seasonal allergies Weight loss hx-30+ lb weight loss in within 6 month perior pt has ongoing problem gaining weight per dtr., since pt's in 2020 Chronic back pain pain to both legs Osteoarthritis Depression Anxiety History of palpitations "skips beats" Hypertension Chronic nausea GERD (gastroesophageal reflux disease) Migraine hx Poor historian interview needs to be done with dtr. Lung nodules previously biopsied - benign Intractable nausea and vomiting resolved Anorexia ongoing for past 3 years Pulmonary hypertension Past Family History Family History Mother Hypertension Cancer Father Cancer Other No family history of adverse response to anesthesia No family history of bleeding disorder Past Surgical History Surgical History History of carpal tunnel surgery of right wrist History of open reduction and internal fixation (ORIF) procedure rt hip, 02/2024 S/P cardiac pacemaker procedure 02/2022, lead replacement 1 day after insertion; f/u delmy haskins History of colonoscopy History of hernia repair History of Lloyd fundoplication Hx of thyroidectomy PARTIAL Hx of bladder repair surgery FOR SUPPORT History of surgery left elbow Hx of cholecystectomy Hx of tonsillectomy S/P ANKIT-BSO HX History of esophagogastroduodenoscopy (EGD) w/ dilatation History of colostomy ~2006 - placed b/c of incontinence History of bronchoscopy Social History Smoking Status: Never smoker Do You Dip or Chew Tobacco: No Hx Alcohol Use: Yes Alcohol type: wine alcohol intake frequency: holidays/special occasions only Hx Substance Use: No substance use type: does not use Testing Laboratory Results Laboratory Tests 05/25/24 06:08 WBC 6.27 Hgb 10.6 L Hct 30.7 L Plt Count 226 Sodium 137 Potassium 3.6 Chloride 107 Carbon Dioxide 25 BUN 13 Creatinine 0.75 Glucose 95 Electrocardiogram Date: 05/22/24 DICTATED BY: Carlos Smith MD Test Reason : Blood Pressure : */* mmHG Vent. Rate : 67 BPM Atrial Rate : 67 BPM P-R Int : 278 ms QRS Dur : 66 ms QT Int : 418 ms P-R-T Axes : 62 35 -78 degrees QTcB Int : 441 ms Poor data quality, interpretation may be adversely affected Atrial-paced rhythm with prolonged AV conduction Diffuse Nonspecific ST and T wave abnormality Abnormal ECG When compared with ECG of 15-Feb-2024 02:31, Electronic atrial pacemaker has replaced Atrial fibrillation Vent. rate has decreased by [address] less depressed in Anterolateral leads Confirmed by Carlos Smith ([id number]) on 05/23/2024 8:27:43 AM Chest X-Ray Date: 05/22/24 XR chest 1V portable CLINICAL HISTORY: weakness COMPARISON STUDY: Chest radiograph February 13, 2024. FINDINGS: Left subclavian pacer is in place. There is no pneumothorax or pleural effusion. Pulmonary vascularity is normal. No consolidation to suggest pneumonia. Linear left midlung density and right perihilar nodular opacities are chronic. The appearance of the chest is unchanged. Skinfolds project over the chest. IMPRESSION: No acute cardiopulmonary findings. No change in appearance of the chest. Echocardiogram Date: 05/23/24 LV is hyperdynamic EF greater than 70% LV wall motion is normal mild LVH Grade 1 DD Mild dynamic LV outflow tract obstruction PACEmaker lead in RV Moderate TR RV systolic pressure is elevated at 30-40mmHg.
--- NOTE | 2024-06-09 07:41 | History & Physical Report ---
Date of Service June 09, 2024 History of Present Illness Primary Care Provider: Twila Denton MD Date of Consultation May 24, 2024 Assessment & Plan (1) Carotid stenosis, right: Pt with asymptomatic severe R ICA stenosis, and is at significant risk of CVA. Due to this risk, recommend pt be seen in office in 1-2 weeks to discus surgical options. Pt agreeable. Office will call pt/daughter to schedule. History of Present Illness Reason for Consultation: R ICA stenosis Attending Physician: Lenora Cleveland MD History of Present Illness 89 yo f with hx of HTN, tachy-roge syndrome s/p pacemaker insertion, A fib, depression, anxiety, hypothyroidism, GERD, dementia, migraines, admitted with altered mental status, seen in consultation today for R ICA stenosis noted on neck CTA. Pt with mild dementia at baseline. Per chart, pt very confused upon arrival and unable to carry on a conversation. No documentation of any focal, unilateral sx. Pt was dehydrated. Per family, pt had not been taking her medications, which likely contributed. Pt admits fatigue. Denies any amaurosis, unilateral weakness or numbness, facial droop, aphasia. Pt denies SUMMERS, fever, recent illness, chest pain, palpitations, SOB, abd pain, N/V, claudication, rest pain, ulcerations, other complaints. Pt lives alone, her 2 daughters check on her regularly. She is still recovering from a R hip fx in 03/05. CTA head/neck demonstrates 95% stenosis R ICA. Allergies Allergy/AdvReac Type Severity Reaction Status Date / Time verapamil AdvReac Severe "THINGS Verified 05/22/24 15:04 STARTED TO SHUT DOWN-HEART, B/P TILL GOT TO ER". aspirin AdvReac Mild GI UPSET, Verified 05/22/24 15:04 TAKES BABY ASA WITHOUT PROB chocolate AdvReac Gastrointestinal Verified 05/23/24 14:53 Upset lactose AdvReac Gastrointestinal Verified 05/23/24 14:54 Upset Home Medications Medication Instructions Recorded Confirmed Type levothyroxine 25 mcg tablet 25 mcg PO QAM 07/03/18 05/22/24 History apixaban 2.5 mg tablet (Eliquis) 2.5 mg PO BID 30 days #60 tabs 10/20/21 05/22/24 Rx pantoprazole 20 mg tablet,delayed 40 mg PO QAM 05/27/22 05/22/24 History release (Protonix) [id number]-[id number]-[id number] 1 tab PO Q4H PRN Migraine Headache 05/22/24 05/22/24 History 50 mg-325 mg-40 mg tablet cholecalciferol (vitamin D3) 125 125 mcg PO QPM 05/22/24 05/22/24 History mcg (5,000 unit) tablet (Vitamin D3) diltiazem HCl 240 mg 240 mg PO QPM 05/22/24 05/22/24 History capsule,extended release 24 hr (Cardizem CD) diphenhydramine HCl 25 mg tablet 25 mg PO QPM 05/22/24 05/22/24 History (Sleep Aid (diphenhydramine)) lorazepam 1 mg tablet 1 mg PO TID PRN Anxiety 05/22/24 05/22/24 History metoprolol succinate 200 mg 200 mg PO QAM 05/22/24 05/22/24 History tablet,extended release 24 hr potassium chloride 8 mEq 16 meq PO QAM 05/22/24 05/22/24 History capsule,extended release tramadol 50 mg tablet 50 mg PO Q6H PRN Pain 05/22/24 05/22/24 History Patient History Medical History Hypokalemia Left-sided chest pain Asymptomatic bacteriuria Atrial fibrillation with rapid ventricular response Pacemaker lead malfunction Acute dehydration Hypomagnesemia Dysrhythmia Dizziness SVT (supraventricular tachycardia) Abnormal urinalysis Hypomagnesemia Hypokalemia Headache History of pulmonary embolism Leukocytosis Partial small bowel obstruction Abdominal pain, epigastric Trouble swallowing CERTAIN FOODS WILL STICK WHEN SWALLOWINGCerumen impaction Seasonal allergies Weight loss 30+ lb weight loss in lst 6 monthsChronic back pain PAIN TO BOTH LEGSOsteoarthritis Depression Anxiety History of palpitations "skips beats"Hypertension Chronic nausea GERD (gastroesophageal reflux disease) Migraine Poor historian Pulmonary embolism 4-5 years ago - asymptomatic - incidental finding - treated w/ blood thinners x 6 months, cause?Lung nodules previously biopsied - benignIntractable nausea and vomiting Chest pain, rule out acute myocardial infarction Anorexia Abnormal EKG Pulmonary hypertension GERD (gastroesophageal reflux disease) Surgical History History of colonoscopy History of hernia repair History of Lloyd fundoplication Hx of thyroidectomy PARTIALNausea and vomiting after administration of anesthetic agent Hx of bladder repair surgery FOR SUPPORTHistory of surgery left elbowHx of cholecystectomy Hx of tonsillectomy S/P ANKIT-BSO HXHistory of esophagogastroduodenoscopy (EGD) w/ dilatationHistory of colostomy 10 -12years - placed b/c of incontinence (cause??)History of bronchoscopy Family History Mother Hypertension CancerFather CancerOther No family history of adverse response to anesthesia No family history of bleeding disorder Social History (Reviewed 05/24/24 @ 09: by Judi Arboleda PA-C) Smoking Status: Unknown if ever smoked Second Hand Exposure: No; Do You Dip or Chew Tobacco: No; Hx Alcohol Use: No Hx Substance Use: No Preferred Language: Guamanian Communication Ability: Effective Steward/Stewardess Wine Required: No Beliefs That Will Affect Care: None marital status: / Current Living Situation: Alone How many Children do You have: 4 Feels Safe at Home: Yes Safety Concerns: Feels Safe At This Time Assistive Devices: Walker Review of Systems Review of Systems: All systems reviewed & are unremarkable except as noted in HPI & below Physical Exam Constitutional: WD/WN, vitals as above + thin, + frail appearing, cooperative and comfortable; not in distress ENMT: Ears: no hearing impairment Neck: trachea midline Respiratory: normal respiratory effort, lungs clear to auscultation Auscultation: + diminished lung sounds Cardiovascular: Rate/Rhythm: regular rate and regular rhythm Vessels: femoral pulses present, posterior tibial pulses present (RLE +2, LLE +2) and dorsalis pedis pulses present (RLE +3, LLE +1); + abnormal peripheral pulses Extremities: normal capillary refill; no edema Gastrointestinal (Abdomen): Inspection/Auscultation: normal bowel sounds; + abdomen abnormal to inspection (colostomy noted) Percussion/Palpation: abdomen soft; abdomen nontender Musculoskeletal: no cyanosis or clubbing, extremities motor strength 5/5 Skin: no rashes, warm and dry Neurologic: moves all extremities and awake; no focal motor deficits and not confused (minimally) Speech / Cognition: no expressive aphasia and no receptive aphasia Psychiatric: A+Ox3, euthymic affect (knows location, date, but unable to state president) Results & Data Vital Signs (Past 12 Hours) Vital Signs Temp Pulse Pulse Resp BP BP Pulse Ox 05/24/24 07:52 36.9 C 86 19 161/103 H 98 05/24/24 07:24 67 05/24/24 02:54 37.2 C 63 14 143/83 H 97 05/23/24 22:51 64 05/23/24 22:41 37.2 C 62 14 145/81 H 95 O2 Del Method 05/24/24 07:52 Room Air 05/24/24 07:24 05/24/24 02:54 Room Air 05/23/24 22:51 05/23/24 22:41 Room Air Signed By: <Electronically signed by Judi Arboleda PA-C> 05/24/24 0942 <Electronically signed by Av Guerra MD> 05/24/24 1038 Created: 05/24/24 0917 The status of this report is Signed. Draft = Not yet reviewed or approved by Medical Physician. Signed = Reviewed and approved by Medical Physician. Allergies Allergy/AdvReac Type Severity Reaction Status Date / Time verapamil AdvReac Severe "THINGS Verified 06/03/24 13:10 STARTED TO SHUT DOWN-HEART, B/P TILL GOT TO ER". aspirin AdvReac Mild GI UPSET, Verified 06/03/24 13:10 TAKES BABY ASA WITHOUT PROB lactose AdvReac Gastrointestinal Verified 06/03/24 13:10 Upset Home Medications Medication Instructions Recorded Confirmed Type levothyroxine 25 mcg tablet 25 mcg PO QAM 07/03/18 06/03/24 History apixaban 2.5 mg tablet (Eliquis) 2.5 mg PO BID 30 days #60 tabs 10/20/21 06/03/24 Rx pantoprazole 20 mg tablet,delayed 40 mg PO QAM PRN gerd 05/27/22 06/03/24 History release (Protonix) [id number]-[id number]-[id number] 1 tab PO Q4H PRN Migraine Headache 05/22/24 06/03/24 History 50 mg-325 mg-40 mg tablet cholecalciferol (vitamin D3) 125 125 mcg PO QPM 05/22/24 06/03/24 History mcg (5,000 unit) tablet (Vitamin D3) diltiazem HCl 240 mg 240 mg PO QPM 05/22/24 06/03/24 History capsule,extended release 24 hr (Cardizem CD) metoprolol succinate 200 mg 200 mg PO QAM 05/22/24 06/03/24 History tablet,extended release 24 hr potassium chloride 8 mEq 16 meq PO QAM 05/22/24 06/03/24 History capsule,extended release aspirin 81 mg tablet,delayed 81 mg PO QAM #30 tabs 05/25/24 06/03/24 Rx release atorvastatin 40 mg tablet 40 mg PO QAM #30 tabs 05/25/24 06/03/24 Rx clopidogrel 75 mg tablet (Plavix) 75 mg PO QAM 06/03/24 06/03/24 History lorazepam 1 mg tablet 0.5 mg PO TID PRN Anxiety 06/03/24 06/03/24 History Past Med/Surg History Problem List (Updated 06/04/24 @ 11:56 by Slade Moy MD) CVA (cerebral vascular accident) Severe malnutrition Carotid stenosis, right Dehydration (Acute) Elevated troponin (Acute) Hypomagnesemia (Acute) Elevated lactic acid level (Acute) Leukocytosis (Acute) Altered mental status (Acute) Acute kidney injury superimposed on CKD C4 cervical fracture C5 cervical fracture Closed right hip fracture Fracture of spinous process of cervical vertebra (Acute) Anticoagulant long-term use Cardiac pacemaker Allergic rhinitis Pacemaker Tachy-roge syndrome Paroxysmal atrial fibrillation Colostomy in place Hypothyroid (Chronic) Anxiety (Chronic) Depression (Chronic) HTN (hypertension) (Chronic) Medical History (Updated 06/04/24 @ 11:56 by Slade Moy MD) Encounter for pre-operative examination 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 Hypomagnesemia Dysrhythmia had pacer placed, 02/2022 SVT (supraventricular tachycardia) hx; f[place] Hypokalemia Headache resolved History of pulmonary embolism years ago- asymptomatic - incidental finding - treated w/ blood thinners x 6 months, cause? Leukocytosis hx Partial small bowel obstruction Trouble swallowing w/certain foods Seasonal allergies Weight loss hx-30+ lb weight loss in within 6 month perior pt has ongoing problem gaining weight per dtr., since pt's in 2020 Chronic back pain pain to both legs Osteoarthritis Depression Anxiety History of palpitations "skips beats" Hypertension Chronic nausea GERD (gastroesophageal reflux disease) Migraine hx Poor historian interview needs to be done with dtr. Lung nodules previously biopsied - benign Intractable nausea and vomiting resolved Anorexia ongoing for past 3 years Pulmonary hypertension Surgical History History of carpal tunnel surgery of right wrist History of open reduction and internal fixation (ORIF) procedure rt hip, 02/2024 S/P cardiac pacemaker procedure 02/2022, lead replacement 1 day after insertion; f/u delmy haskins History of colonoscopy History of hernia repair History of Lloyd fundoplication Hx of thyroidectomy PARTIAL Hx of bladder repair surgery FOR SUPPORT History of surgery left elbow Hx of cholecystectomy Hx of tonsillectomy S/P ANKIT-BSO HX History of esophagogastroduodenoscopy (EGD) w/ dilatation History of colostomy ~2005 - placed b/c of incontinence History of bronchoscopy Family History Mother Hypertension Cancer Father Cancer Other No family history of adverse response to anesthesia No family history of bleeding disorder Social History Smoking Status: Never smoker Second Hand Exposure: No; Do You Dip or Chew Tobacco: No; Tobacco Cessation Education Requested by Patient: No Hx Alcohol Use: Yes Alcohol type: wine Hx Substance Use: No Preferred Language: Guamanian Communication Ability: Effective Steward/Stewardess Wine Required: No Beliefs That Will Affect Care: None marital status: / Current Living Situation: Alone How many Children do You have: 4 Other Information That Helps Us Care for You: No Feels Safe at Home: Yes Safety Concerns: Feels Safe At This Time Assistive Devices: Denture - Lower, Glasses and Walker Assistive Devices Comment: partial bottom denture, upper permanent bridge
[2024-06-09] MEDS ORDERED: ONDANSETRON INJ 2 MG/ML 2 ML VIAL ONE (08:41)
[2024-06-09] MEDS ORDERED: DEXAMETHASONE SOD INJ 4 MG/ML VIAL ONE (08:41)
[2024-06-09] MEDS ORDERED: PROPOFOL IV EMULSION 10 MG/ML 20 ML VIAL IV ONE (08:41)
[2024-06-09] MEDS ORDERED: LIDOCAINE 2% 2 ML VIAL/AMP(20MG/ML) INFIL ONE ×2 (08:41→08:43)
[2024-06-09] MEDS ORDERED: fentaNYL citrate PF 100 MCG/2 ML VIAL ONE (08:42)
[2024-06-09] MEDS ORDERED: ROCURONIUM BROMIDE 10 MG/ML 5 ML VIAL IV ONE ×5 (08:47)
[2024-06-09] MEDS ORDERED: HEPARIN SOD (PORCINE) 1000 UNIT/ML ONE ×2 (08:52→11:19)
[2024-06-09] MEDS ORDERED: PROTAMINE SULFATE 10 MG/ML 5 ML VIAL IV ONE (08:52)
[2024-06-09] MEDS: SODIUM CHLORIDE 0.9% 1,000 ML IV SCH (08:57)
[2024-06-09] MEDS: LR 15ML/HR IV SCH (08:58)
[2024-06-09 09:15] LABS: BUN Creatinine Ratio 18.1 (10-20); Calcium 8.9 mg/dl (8.6-10.3); Creatinine Clr Calc Pharmacy 24.5 ml/min; Est GFR (African American) 63.2 ml/min; Est GFR (Non-African American) 54.5 ml/min
[2024-06-09] MEDS: METOPROLOL SUCC 50MG EXT REL TAB PO STA (09:41)
[2024-06-09] MEDS: CLOPIDOGREL BISULFATE 75 MG TAB PO ONE (09:41)
[2024-06-09] MEDS: ASPIRIN 81 MG CHEW PO SCH (09:42)
[2024-06-09] MEDS ORDERED: ONDANSETRON INJ 2 MG/ML 2 ML VIAL IV PRN (09:47)
[2024-06-09] MEDS ORDERED: ePHEDrine sulfate 50 MG/ML AMP IV PRN (09:47)
[2024-06-09] MEDS ORDERED: ATROPINE SULFATE 0.1 MG/ML 10ML SYR IV PRN (09:47)
[2024-06-09] MEDS ORDERED: fentaNYL citrate PF 100 MCG/2 ML VIAL IV PRN (09:47)
[2024-06-09] MEDS ORDERED: LABETALOL HCL IV 5 MG/ML 20ML IV PRN (09:47)
--- NOTE | 2024-06-09 09:54 | History & Physical Bridge Note ---
Date of Service June 09, 2024 History & Physical Bridge Note Patient is admitted for a right TCAR. I have discussed the risks options and benefits of the procedure with the patient. The patient understands the risks options and benefits and agrees to the procedure. I have examined the patient, reviewed the History & Physical and in the interval since the performance of the History & Physical I have noted the following changes of clinical significance: no changes noted
[2024-06-09] MEDS ORDERED: DexMEDEtomidine HCL IV 100 MCG/ML VIAL IV ONE (10:03)
[2024-06-09] MEDS: ceFAZolin 2000MG 2,000 MG/15 ML SYR IV SCH ×2 (10:20→18:00)
[2024-06-09] MEDS ORDERED: SUGAMMADEX SODIUM 200 MG/2 ML VIAL IV ONE (10:53)
[2024-06-09] MEDS ORDERED: ePHEDrine sulfate 50 MG/5 ML SYR ONE (11:01)
[2024-06-09] MEDS ORDERED: PHENYLEPHRINE 100MCG/ML 10ML SYR IV ONE (11:11)
[2024-06-09] MEDS ORDERED: GLYCOPYRROLATE 0.2 MG/ML VIAL ONE (11:28)
[2024-06-09] MEDS: VISIPAQUE IV ONE (11:42)
[2024-06-09] MEDS: GELATIN SPONGE SZ 100 ONE (11:42)
[2024-06-09] MEDS: THROMBIN FOR SOLN 20000 UNIT KIT ONE (11:42)
[2024-06-09] MEDS: ceFAZolin 330 MG/ML 1 GM VIAL ONE (11:43)
[2024-06-09] MEDS: BUPIVACAINE/EPINEPHRINE 0.5% MPF 1:200,000 30 ML VIAL ONE (11:44)
--- NOTE | 2024-06-09 11:55 | Procedure Note ---
Angiogram Post Procedure Fluoroscopy Time (minutes): 1.8 Radiation (mGy): 9 Contrast: 9 Post Operative Report Pre & Post Diagnosis Operation Date: 06/09/24 10:10 Pre-Op Diagnosis: Right Carotid Artery Stenosis Post-Op Diagnosis: Right Carotid Artery Stenosis I identified the patient and participated in the time-out.: Yes Procedure Operation Date: 06/09/24 10:10 Actual Procedures p Right Transcarotid Artery Revascularization(Right), ultrasound localization of left common femoral vein- Av Guerra MD Surgeon Av Guerra MD Bible Teacher Lea,PAC Estimated Blood Loss 20 Findings Consistent with Post-Op Diagnosis Specimens none Anesthesia Type General Complications none Disposition Accompanied Patient To Recovery: No Indications This is an 89-year-old female who has a severe stenosis of her right internal carotid artery found on workup for her mental status changes. Due to the amount of narrowing interventions recommended. She elected to go ahead with a TCAR approach. I have discussed the risks options and benefits of the procedure with the patient. The patient understands the risks options and benefits and agrees to the procedure. Description of Procedure The patient was taken to the operating room and placed in supine position. After general anesthesia was accomplished the groins and right side of the neck and chest were prepped and draped in a sterile manner. Timeout was performed and the patient was identified. A transverse incision was made just above the clavicle between the heads of the sternocleidomastoid. This is carried down to where the common carotid artery was identified. It was isolated. It was slung with umbilical tape. Next the U stitch was placed in the common carotid artery with a 5-0 Prolene suture. Patient was given a total of 10,000 of heparin at that time. Ultrasound was then used to localize the left common femoral vein. The vein was patent and compressed easily. Under ultrasound guidance the left common femoral vein was punctured and the venous sheath was inserted. This was aspirated and flushed with heparinized saline. ACT at that time was 146 however there is no clotting seen in the wound and there was oozing around the entrance site of the femoral vein puncture. We therefore elected to go ahead with the rest of the procedure. Using micropuncture technique the common carotid artery was punctured. The micro sheath was inserted to 3 cm. Injection was then done showing the bifurcation. There was a significant lesion seen at the origin of the internal carotid artery on the right side. We then inserted the J-wire left and short of the lesion. The micro sheath was removed and the TCAR sheath was inserted. Once it was in place and held against the artery it was sutured to the chest wall and the incision edge. We then flushed the tubing appropriately. The venous return to was clamped onto the TCAR sheath. It was flushed through and then attached to the venous inflow sheath in the left groin. Sheath was checked for flow. The saline cleared nicely. The common car otid artery was then clamped. Flow reversal was instituted.The flow reversal was again checked for flow and found to have good flow after clamping. We inserted a 4 x 25 balloon backloaded on the wire. The wire was passed through the lesion into the petrous portion of the internal carotid. The 4 balloon was then advanced to the lesion. Lesion was then predilated with a 7 mm balloon. Balloon was removed. We then inserted the 7 x 30 stent. This was deployed across the lesion without difficulty. The catheter was removed. The carotid was allowed to go 2 minutes with flow reversal. Completion angiogram was done at that time which showed a widely patent carotid stent. At that point the common carotid artery was unclamped. The venous return tubing was clamped and removed from the TCAR sheath. The blood was allowed to flow back into the venous system. Once this was completed the sheath was pulled from the groin and pressure was applied. The TCAR sheath was then removed and the 5-0 Prolene suture securely tied. The patient was given 25 mg of protamine. Hemostasis was noted of the puncture site. Once this was completed the sheath was pulled from the groin and pressure was applied. Wound was irrigated with saline solution. Adequate hemostasis was obtained of the wound. Once this was noted the wound was closed in usual fashion using a 3-0 Vicryl suture for the subcutaneous layer and a 4-0 subcuticular Vicryl suture for the skin edges. Dermabond was used for dressing. The patient left the operation room in satisfactory condition and tolerated the procedure well. All needle and sponge counts were correct at the end of the procedure. Judi Arboleda Pac assisted due to lack of resident availability and was necessary for positioning, draping, retraction, wound closure deep layers, subcutaneous tissue, and skin closure and was necessary for assisting with the case. I attest to the content of the Intraoperative Record and any orders documented therein. Any exceptions are noted below.
--- NOTE | 2024-06-09 13:27 | Anesthesiology Progress Note ---
Date of Service June 09, 2024 Anesthesia Post Procedure Vital Signs Vital Signs: Temp Pulse Resp BP BP Pulse Ox O2 Del Method 06/09/24 13:15 60 16 122/73 96 Room Air 06/09/24 13:00 60 16 119/62 96 Room Air 06/09/24 12:50 36.0 C L 60 15 112/61 97 Room Air 06/09/24 12:40 61 15 106/59 L 97 Room Air 06/09/24 12:30 60 17 111/63 97 Room Air 06/09/24 12:20 60 19 118/64 97 Room Air 06/09/24 12:10 60 15 127/65 96 Room Air 06/09/24 12:04 35.8 C L 61 15 141/73 H 97 Room Air 06/09/24 09:19 36.9 C 61 20 184/78 H 97 Room Air Transfer of Care Handoff Completed per policy Notes Mental Status: alert / awake / arousable Patient Amnestic to Procedure: Yes Nausea / Vomiting: adequately controlled Pain: adequately controlled Airway Patency, RR, SpO2: stable & adequate BP & HR: stable & adequate Hydration State: stable & adequate Anesthetic Complications: no major complications apparent and Pt Satisfied with anesthetic care
[2024-06-09] MEDS ORDERED: BUTALBITAL/ACETAMIN/CAFFEINE TAB PO PRN (15:41)
[2024-06-09] MEDS ORDERED: PHENYLEPHRINE/NSS 25 MG/250 ML BAG IV PRN (15:41)
[2024-06-09] MEDS ORDERED: STAT IV Infusion **Titration per Protocol STA (15:41)
--- OUTSIDE RECORDS SUMMARY | 2024-06-09 16:13 | External Medical Summary ---
Author Name Unknown Address Unknown Organization K09:[facility] [place] [address] Laboratory Report Ordering Provider Test Date Status DEMOND DUDLEY 05/26/2024 06:25:31 Final Observation Date Value Abnormality Reference (Units ) Status WBC, Total 05/26/2024 06:25:31 9.56 4.00-10.8 0 (K/uL) Final RBC 05/26/2024 06:25:31 3.41 3.85-5.15 (M/uL) Final Hemoglobin 05/26/2024 06:25:31 11.1 Below low normal 12 .0-15.3 (g/dL) Final HCT 05/26/2024 06:25:31 35.5 Below low normal 36. 0-45.2 (%) Final MCV 05/26/2024 06:25:31 104.1 81.5-97.5 (fL) Final MCH 05/26/2024 06:25:31 32.6 27.0-34.0 (pg) Final MCHC 05/26/2024 06:25:31 31.3 32.0-36.0 (g/dL) Final RDW 05/26/2024 06:25:31 13.7 11.5-15.5 (%) Final Platelets 05/26/2024 06:25:31 223 140-400 (K /uL) Final MPV 05/26/2024 06:25:31 9.3 6.6-11.1 ( fL) Final Performing Location [facility] [place] [address]
--- OUTSIDE RECORDS SUMMARY | 2024-06-09 16:13 | External Medical Summary | Continuity of Care Document ---
Author Name Unknown Organization [facility] [address] Address [address] [place], [place] [id number] Care Team Providers Care Inpatient Coder Name Role Phone CorrieTwila dunbar Primary Care Physician [phone] [id number] Date[facility]/01[facility] - 06/01/24 [facility] [address] [place] [address] [facility] [address] [facility] [place], [phone] Encounter Diagnosis Occlusion and stenosis of unspecified carotid artery(Final) - Discharge Disposition: Home or Self Care Attending Physician: MD Guerra Eugene J Referring Physician: MD Guerra Eugene J Allergies, Adverse Reactions, Alerts No Known Allergies Medications amLODIPine 5 mg oral tablet Start: 11/29/20 3:13:00 PM EST Start Date: 11/29/20 Status: Ordered aspirin 81 mg oral delayed release tablet Start: 02/16/21 1:37:00 PM EDT, 1 tab, PO, Daily Start Date: 02/16/21 Status: Ordered dicyclomine 10 mg oral capsule Start: 11/29/20 3:13:00 PM EST Start Date: 11/29/20 Status: Ordered escitalopram 5 mg oral tablet Start: 01/30/21 11:12:00 AM EDT Start Date: 01/30/21 Status: Ordered levothyroxine Start: 11/29/20 3:15:00 PM EST Start Date: 11/29/20 Status: Ordered LORazepam 1 mg oral tablet Start: 11/29/20 3:12:00 PM EST Start Date: 11/29/20 Status: Ordered [place] 5 mg-325 mg oral tablet Start: 02/16/21 2:01:00 PM EDT, 1 tab, PO, q6h, Disp# 8 tab, Refills: 0, post op pain control, PRN: as needed for pain, Pharmacy: [facility] Start Date: 02/16/21 Status: Ordered pantoprazole 40 mg oral delayed release tablet Start: 11/29/20 3:13:00 PM EST Start Date: 11/29/20 Status: Ordered potassium chloride 8 mEq (600 mg) oral tablet, extended release Start: 11/29/20 3:12:00 PM EST Start Date: 11/29/20 Status: Ordered Vitamin D3 Start: 07/10/21 10:36:00 AM EDT, 5,000 mcg =, PO, Daily Start Date: 07/10/21 Status: Ordered Problem List Condition Confirmation Course Effective Dates Status Health St atus Informant Carotid stenosis, bilateral Confirmed Active Right carpal tunnel syndrome Confirmed Active Right hand pain Confirmed Active Cervicalgia Confirmed Active Left elbow pain Confirmed Active Right wrist pain Confirmed Active Healthcare maintenance Confirmed Active Left shoulder pain Confirmed Active Results Laboratory List Name Date Platelet Function (P2Y12 Receptor) (PLT FUNCTION P2Y12) 06/01/24 Most recent to oldest [Reference Range]: 1 P2Y12 Platelet Function [[id number] PRU] RE [facility] CREDITED PRU 1 (06/01/24 10:26 AM) 1Result Comment: STABILITY LIMIT EXCEEDED WHEN RECEIVED CSI GENERATED Social History Social History Type Response Smoking Status Never smoked cigaret tania Sex Female Sex Representation Female (finding) Patient Care team information Care Team Personnel Name: MD Corrie, Twila Espana Position: Referring Member Role: Primary Care Provider Address: [address] [place] [id number] [place] Name: ARACELI Arboleda Lynn Position: Physician I&C Technician Exempt - Vasc Surg Member Role: Lifetime Relationship Address: [address] [place] [address] [place] Care Team Related Persons Name: AMERICA ROBERSON Name: OMAIRA MCGRATH
--- OUTSIDE RECORDS SUMMARY | 2024-06-09 16:13 | External Medical Summary | Continuity of Care Document ---
Author Name Unknown Organization [facility] [address] [place] [address] Address [address] [place], [place] [id number] Care Team Providers Care Concrete Pointer Name Role Phone CorrieTwila dunbar Primary Care Physician [phone] [id number] Date[facility]s): [facility]/04[facility]24 - 06/04/24 [facility] [address] [place] [address] [facility] [address] [facility] [address] [place], [place] [phone] Encounter Diagnosis Occlusion and stenosis of unspecified [...] PM EST Start Date: 11/29/20 Status: Ordered [place] 5 mg-325 mg oral tablet Start: 02/16/21 2:01:00 PM EDT, 1 tab, PO, q6h, Disp# 8 tab, Refills: 0, post op pain control, PRN: as needed for pain, Pharmacy: [facility] Start Date: 02/16/21 Status: Ordered [...] Platelet Function (P2Y12 Receptor) (PLT FUNCTION P2Y12) 06/04/24 Most recent to oldest [Reference Range]: 1 P2Y12 Platelet Function [194-418 PRU] 68 PRU 1 *LOW* (06/04/24 10:30 AM) 1Result Comment: PRU reference range is 194-418 (healthy adults, no drug treatment). Post Drug Results: Lower PRU levels are expected following treatment with antiplatelet drugs. Post-treatment values are usually below the stated reference range above. The post-drug PRU values reported in the VerifyNOW P2Y12 package insert are 18-435. This broader range reflects the variability in drug response and is consistent with significant numbers of patients with decreased sensitivity to P2Y12 receptor antagonists (prasugrel or clopidogrel). Clinical studies suggest an on-treatment PRU>230 indicates less than optimal response to therapy, and PRU<208 at 12-24 hours after percutaneous intervention or during follow-up is associated with a lower risk of cardiovascular events (1). (1).Standard-vs high-dose clopidogrel based on platelet function testing after percutaneouscoronary intervention: the GRAVITAS randomized trial. lynette Farrell al. ARI. 2010December 26; 305(11): 2033-5625. doi: 10.1001/ari.2011.290 Social History Social History Type Response Smoking Status Never smoked cigaret tania Sex Female Sex Representation Female (finding) Patient Care team information Care Team Personnel Name: MD Corrie, Twila Espana Position: Referring Member Role: Primary Care Provider Address: [address] [place] [address] [place] Name: ARACELI Arboleda Lynn Position: Physician Decorative Engraver Exempt - Vasc Surg Member Role: Lifetime Relationship Address: [address] [place] [id number] Care Team Related Persons Name: AMERICA ROBERSON Name: OMAIRA MCGRATH
--- OUTSIDE RECORDS SUMMARY | 2024-06-09 16:13 | External Medical Summary ---
Author Name Unknown Address Unknown Organization K01:LAB[facility]ATORY [facility] - [address] [place] [address] Laboratory Report Ordering Provider Test Date Status ARLEYKIERSTENRONNIEDEANNA 05/27/2024 07:01:14 Final Observation Date Value Abnormality Reference (Units ) Status TSH 05/27/2024 07:01:14 6.85 Above high normal 0. 27-4.20 (uIU/mL) Final Performing Location LABORATORY [facility] - [address] [place] [address]
--- OUTSIDE RECORDS SUMMARY | 2024-06-09 16:13 | External Medical Summary ---
Author Name Unknown Address Unknown Organization K09:[facility] [place] [address] Laboratory Report Ordering Provider Test Date Status DEMOND DUDLEY 05/26/2024 06:25:31 Final Observation Date Value Abnormality Reference (Units ) Status BUN 05/26/2024 06:25:31 25 Above high normal 6-20 (mg/dL) Final Creatinine 05/26/2024 06:25:31 1.0 0.5-1.0 (mg/dL) Final Glomerular filtration rate/1.73 sq M.predicted [Volume Rate/Area] in Serum, Plasma or Blood by Creatinine-based formula (CKD-EPI) 05/26/2024 06:25:31 55 Below low normal >=60 (mL/min) Final eGFR is calculated based on the CKD-EPI 2020 equation. Sodium 05/26/2024 06:25:31 140 135-146 (m mol/L) Final Potassium 05/26/2024 06:25:31 3.9 3.5-5.1 (m mol/L) Final Cl 05/26/2024 06:25:31 107 98-107 (mm ol/L) Final CO2 05/26/2024 06:25:31 16 Below low normal 22- 32 (mmol/L) Final Anion gap 05/26/2024 06:25:31 17 Above high normal 7- 15 (mmol/L) Final Glucose 05/26/2024 06:25:31 85 70-120 (mg /dL) Final Calcium 05/26/2024 06:25:31 8.5 8.4-10.2 ( mg/dL) Final Performing Location [facility] [place] [address]
--- OUTSIDE RECORDS SUMMARY | 2024-06-09 16:13 | External Medical Summary ---
Author Name Unknown Address Unknown Organization K01:[facility]ATORY [facility] - [address] [place] [address] Laboratory Report Ordering Provider Test Date Status ARLEYKIERSTENRONNIEDEANNA 05/27/2024 07:01:14 Final Observation Date Value Abnormality Reference (Units ) Status T4, Free 05/27/2024 07:01:14 1.2 0.9-1.7 (n g/dL) Final Performing Location LAB[facility]ATORY [facility] - [address] [place] [address]
--- NOTE | 2024-06-09 16:28 | Critical Care Consultation ---
Date of Consultation June 09, 2024 Assessment & Plan (1) Carotid stenosis, right: Postop day 0 status post right TCAR. Continue anticoagulant therapy and antihypertensive regimen per vascular surgery. Maintain euglycemia. (2) Anticoagulant long-term use: Patient on Eliquis, aspirin and Plavix as ordered by vascular surgical team. Monitor for evidence of bleeding from incision site. (3) Pacemaker: Monitor telemetry closely. Hemodynamics remained stable at this time. Maintain maps above 65 mmHg and systolic blood pressures less than 180. Plan Thank you for the consult. ICU service to continue to follow while she remains in the ICU. History of Present Illness Reason for Consultation: Postop day 0 status post right TCAR Attending Physician: Av Guerra MD History of Present Illness 89-year-old female with a past medical history of asymptomatic severe right ICA who presented today for an elective right TCAR. She also has a history of A- fib, pacemaker for sick sinus syndrome, hypothyroidism, GERD and dementia. She is now in the ICU and stable hemodynamically. Arterial line is in place. Anticoagulants and home medications have been restarted by the vascular surgical team. Allergies Allergy/AdvReac Type Severity Reaction Status Date / Time verapamil AdvReac Severe "THINGS Verified 06/09/24 09:14 STARTED TO SHUT DOWN-HEART, B/P TILL GOT TO ER". aspirin AdvReac Mild GI UPSET, Verified 06/09/24 09:14 TAKES BABY ASA WITHOUT PROB lactose AdvReac Gastrointestinal Verified 06/09/24 09:14 Upset Home Medications Medication Instructions Recorded Confirmed Type levothyroxine 25 mcg tablet 25 mcg PO QAM 07/03/18 06/09/24 History apixaban 2.5 mg tablet (Eliquis) 2.5 mg PO BID 30 days #60 tabs 10/20/21 06/09/24 Rx pantoprazole 20 mg tablet,delayed 40 mg PO QPM gerd 05/27/22 06/09/24 History release (Protonix) [id number]-[id number] 1 tab PO Q4H PRN Migraine Headache 05/22/24 06/09/24 History 50 mg-325 mg-40 mg tablet (Esgic) cholecalciferol (vitamin D3) 125 125 mcg PO QPM 05/22/24 06/09/24 History mcg (5,000 unit) tablet (Vitamin D3) diltiazem HCl 240 mg 240 mg PO QPM 05/22/24 06/09/24 History capsule,extended release 24 hr (Cardizem CD) metoprolol succinate 200 mg 200 mg PO QAM 05/22/24 06/09/24 History tablet,extended release 24 hr (Toprol XL) potassium chloride 8 mEq 16 meq PO QAM 05/22/24 06/09/24 History capsule,extended release aspirin 81 mg tablet,delayed 81 mg PO QAM #30 tabs 05/25/24 06/09/24 Rx release clopidogrel 75 mg tablet (Plavix) 75 mg PO QAM 06/03/24 06/09/24 History lorazepam 1 mg tablet 0.5 mg PO TID PRN Anxiety 06/03/24 06/09/24 History atorvastatin 40 mg tablet 40 mg PO PM 06/09/24 06/09/24 History Patient History Medical History Encounter for pre-operative examination 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 Hypomagnesemia Dysrhythmia had pacer placed, 02/2022 SVT (supraventricular tachycardia) hx; f/u delmy murphy Hypokalemia Headache resolved History of pulmonary embolism years ago- asymptomatic - incidental finding - treated w/ blood thinners x 6 months, cause? Leukocytosis hx Partial small bowel obstruction Trouble swallowing w/certain foods Seasonal allergies Weight loss hx-30+ lb weight loss in within 6 month perior pt has ongoing problem gaining weight per dtr., since pt's in 2020 Chronic back pain pain to both legs Osteoarthritis Depression Anxiety History of palpitations "skips beats" Hypertension Chronic nausea GERD (gastroesophageal reflux disease) Migraine hx Poor historian interview needs to be done with dtr. Lung nodules previously biopsied - benign Intractable nausea and vomiting resolved Anorexia ongoing for past 3 years Pulmonary hypertension Surgical History History of carpal tunnel surgery of right wrist History of open reduction and internal fixation (ORIF) procedure rt hip, 02/2024 S/P cardiac pacemaker procedure 02/2022, lead replacement 1 day after insertion; f/u delmy haskins History of colonoscopy History of hernia repair History of Lloyd fundoplication Hx of thyroidectomy PARTIAL Hx of bladder repair surgery FOR SUPPORT History of surgery left elbow Hx of cholecystectomy Hx of tonsillectomy S/P ANKIT-BSO HX History of esophagogastroduodenoscopy (EGD) w/ dilatation History of colostomy ~2006 - placed b/c of incontinence History of bronchoscopy Family History Mother Hypertension Cancer Father Cancer Other No family history of adverse response to anesthesia No family history of bleeding disorder Social History Smoking Status: Never smoker Second Hand Exposure: No; Do You Dip or Chew Tobacco: No; Tobacco Cessation Education Requested by Patient: No Hx Alcohol Use: Yes Alcohol type: wine Hx Substance Use: No Preferred Language: Georgian Communication Ability: Effective Assistant Health Educator Required: No Beliefs That Will Affect Care: None marital status: / Current Living Situation: Alone How many Children do You have: 4 Other Information That Helps Us Care for You: No Feels Safe at Home: Yes Safety Concerns: Feels Safe At This Time Assistive Devices: Denture - Lower, Glasses and Walker Assistive Devices Comment: partial bottom denture, upper permanent bridge Review of Systems Review of Systems: All systems reviewed & are unremarkable except as noted in HPI & below Physical Exam Physical Exam: Constitutional: Patient appears to be of their stated age. Thin and elderly appearing female in no apparent distress Eyes: Pupils are equal round and reactive to light. Conjunctivae are normal. Anicteric sclera. Ears nose, mouth and throat: Mallampati class 1. Normal posterior oropharynx. Uvula is midline. Neck: Trachea is midline. Visual inspection is normal. TCAR incision site appears clean dry and intact. Mild bruising noted. Respiratory: Clear to auscultation bilaterally. No use of accessory muscles. No significant clubbing noted. Cardiovascular: Regular rate and rhythm. No murmurs. No edema. Gastrointestinal: Normal bowel sounds, soft, nontender and nondistended. No hepatosplenomegaly noted. Musculoskeletal: No cyanosis. Patient is able to move all extremities. Strength is 5 out of 5 in the upper and lower extremities. Skin: No rashes, warm dry and intact. Neurologic: No obvious focal neurological deficits seen. Psychiatric: Alert and oriented x3 with a euthymic affect. Results & Data Results & Data Vital Signs (Past 12 Hours) Vital Signs Temp Pulse Resp BP BP Pulse Ox O2 Del Method 06/09/24 14:00 60 13 121/65 112/53 L 96 Room Air 06/09/24 13:45 60 14 130/63 97 Room Air 06/09/24 13:30 60 18 125/62 98 Room Air 06/09/24 13:15 60 16 122/73 96 Room Air 06/09/24 13:00 60 16 119/62 96 Room Air 06/09/24 12:50 36.0 C L 60 15 112/61 97 Room Air 06/09/24 12:40 61 15 106/59 L 97 Room Air 06/09/24 12:30 60 17 111/63 97 Room Air 06/09/24 12:20 60 19 118/64 97 Room Air 06/09/24 12:10 60 15 127/65 96 Room Air 06/09/24 12:04 35.8 C L 61 15 141/73 H 97 Room Air 06/09/24 09:19 36.9 C 61 20 184/78 H 97 Room Air Coding Level of Care Code 18991 IN/OBS CONSULT LVL 4,60M Diagnoses Carotid stenosis, right I65.21 Anticoagulant long-term use Z79.01 Pacemaker Z95.0
[2024-06-09] MEDS: LACTATED RINGER'S 1,000 ML IV SCH (16:35)
[2024-06-09] MEDS: LORazepam 0.5 MG TAB PO PRN (18:00)
[2024-06-09] MEDS: SODIUM CHLORIDE 0.65% NA SOLN 45 ML (OCEAN) ONE (18:10)
[2024-06-09] MEDS: oxyCODONE/ACETAMINOPHEN 5mg/325mg TAB PO PRN (20:42)
[2024-06-09] MEDS: PANTOprazole 40 MG TAB PO SCH (20:46)
[2024-06-09] MEDS: CHOLECALCIFEROL 125 MCG (5,000 UNITS) TAB PO SCH (20:46)
[2024-06-09] MEDS: dilTIAZem HCL 240 MG CAPCR PO SCH (20:46)
[2024-06-09] MEDS: ATORVASTATIN 40 MG TAB PO SCH (20:46)
[2024-06-10] MEDS: LEVOTHYROXINE SODIUM 25 MCG TABLET PO SCH (05:50)
[2024-06-10] MEDS: CLOPIDOGREL BISULFATE 75 MG TAB PO SCH (08:18)
[2024-06-10] MEDS: APIXABAN 2.5 MG TAB PO SCH (08:18)
[2024-06-10] MEDS: ASPIRIN 81 MG ECTAB PO SCH (08:18)
[2024-06-10] MEDS: POTASSIUM CHLORIDE CRTAB 20 MEQ TABCR PO SCH (08:19)
[2024-06-10] MEDS ORDERED: METOPROLOL SUCC 50MG EXT REL TAB PO SCH (09:00)
[2024-06-10 09:39] VITALS: PULSE 60; RESP 12; TEMP 97.5; O2SAT 93
--- NOTE | 2024-06-10 12:54 | Surgery Progress Note ---
Date of Service June 10, 2024 Assessment & Plan (1) Carotid stenosis, right: Plan: Patient PO#1 right TCAR. Doing well without complications. D/C today. Admission and Anticipated Discharge Date Admission Date: June 09, 2024 Subjective Patient without complaints. Denies any focal neuro deficits. Physical Exam Constitutional: WD/WN, vitals as above Neck: trachea midline Respiratory: normal respiratory effort; no respiratory distress Cardiovascular: Rate/Rhythm: regular rate and regular rhythm Skin: + incision (dry and clean, min edema and ecchymosis) Neurologic: CN's II-XI intact bilaterally and moves all extremities Psychiatric: A+Ox3, euthymic affect Results & Data Vital Signs (Past 12 Hours) Vital Signs Temp Pulse Pulse Resp BP BP Pulse Ox 06/10/24 09:38 36.4 C L 60 12 103/43 L 93 06/10/24 08:30 62 14 06/10/24 08:17 92/44 L 06/10/24 08:00 64 06/10/24 07:21 62 19 92 06/10/24 07:00 92/49 L 06/10/24 06:00 100/49 L 06/10/24 05:57 60 11 L 97 06/10/24 05:00 60 11 L 99 06/10/24 05:00 100/49 L 06/10/24 04:03 60 13 98 06/10/24 04:00 105/48 L 06/10/24 04:00 36.4 C 06/10/24 03:48 60 97 06/10/24 03:33 60 14 98 06/10/24 03:00 96/49 L 86 L 06/10/24 02:00 60 14 88 L 06/10/24 02:00 106/54 L 06/10/24 01:03 60 14 91 06/10/24 01:00 119/59 L 06/10/24 00:57 60 13 93 O2 Del Method O2 Flow Rate 06/10/24 09:38 Room Air 06/10/24 08:30 06/10/24 08:17 06/10/24 08:00 06/10/24 07:21 06/10/24 07:00 06/10/24 06:00 06/10/24 05:57 06/10/24 05:00 06/10/24 05:00 06/10/24 04:03 06/10/24 04:00 06/10/24 04:00 06/10/24 03:48 06/10/24 03:33 Nasal Cannula 2 06/10/24 03:00 Room Air 06/10/24 02:00 Room Air 06/10/24 02:00 06/10/24 01:03 06/10/24 01:00 06/10/24 00:57
--- NOTE | 2024-06-10 13:02 | Discharge Summary ---
Date of Service June 10, 2024 Admission HPI Per Admitting Provider Date of Consultation May 24, 2024 Assessment & Plan (1) Carotid stenosis, right: Pt with asymptomatic severe R ICA stenosis, and is at significant risk of CVA. Due to this risk, recommend pt be seen in office in 1-2 weeks to discus surgical options. Pt agreeable. Office will call pt/daughter to schedule. History of Present Illness Reason for Consultation: R ICA stenosis Attending Physician: Lenora Cleveland MD History of Present Illness 89 yo f with hx of HTN, tachy-roge syndrome s/p pacemaker insertion, A fib, depression, anxiety, hypothyroidism, GERD, dementia, migraines, admitted with altered mental status, seen in consultation today for R ICA stenosis noted on neck CTA. Pt with mild dementia at baseline. Per chart, pt very confused upon arrival and unable to carry on a conversation. No documentation of any focal, unilateral sx. Pt was dehydrated. Per family, pt had not been taking her medic ations, which likely contributed. Pt admits fatigue. Denies any amaurosis, unilateral weakness or numbness, facial droop, aphasia. Pt denies SUMMERS, fever, recent illness, chest pain, palpitations, SOB, abd pain, N/V, claudication, rest pain, ulcerations, other complaints. Pt lives alone, her 2 daughters check on her regularly. She is still recovering from a R hip fx in 03/05. CTA head/neck demonstrates 95% stenosis R ICA. Allergies Allergy/AdvReac Type Severity Reaction Status Date / Time verapamil AdvReac Severe "THINGS Verified 05/22/24 15:04 STARTED TO SHUT DOWN-HEART, B/P TILL GOT TO ER". aspirin AdvReac Mild GI UPSET, Verified 05/22/24 15:04 TAKES BABY ASA WITHOUT PROB chocolate AdvReac Gastrointestinal Verified 05/23/24 14:53 Upset lactose AdvReac Gastrointestinal Verified 05/23/24 14:54 Upset Home Medications Medication Instructions Recorded Confirmed Type levothyroxine 25 mcg tablet 25 mcg PO QAM 07/03/18 05/22/24 History apixaban 2.5 mg tablet (Eliquis) 2.5 mg PO BID 30 days #60 tabs 10/20/21 05/22/24 Rx pantoprazole 20 mg tablet,delayed 40 mg PO QAM 05/27/22 05/22/24 History release (Protonix) [id number]-[id number] 1 tab PO Q4H PRN Migraine Headache 05/22/24 05/22/24 History 50 mg-325 mg-40 mg tablet cholecalciferol (vitamin D3) 125 125 mcg PO QPM 05/22/24 05/22/24 History mcg (5,000 unit) tablet (Vitamin D3) diltiazem HCl 240 mg 240 mg PO QPM 05/22/24 05/22/24 History capsule,extended release 24 hr (Cardizem CD) diphenhydramine HCl 25 mg tablet 25 mg PO QPM 05/22/24 05/22/24 History (Sleep Aid (diphenhydramine)) lorazepam 1 mg tablet 1 mg PO TID PRN Anxiety 05/22/24 05/22/24 History metoprolol succinate 200 mg 200 mg PO QAM 05/22/24 05/22/24 History tablet,extended release 24 hr potassium chloride 8 mEq 16 meq PO QAM 05/22/24 05/22/24 History capsule,extended release tramadol 50 mg tablet 50 mg PO Q6H PRN Pain 05/22/24 05/22/24 History Patient History Medical History Hypokalemia Left-sided chest pain Asymptomatic bacteriuria Atrial fibrillation with rapid ventricular response Pacemaker lead malfunction Acute dehydration Hypomagnesemia Dysrhythmia Dizziness SVT (supraventricular tachycardia) Abnormal urinalysis Hypomagnesemia Hypokalemia Headache History of pulmonary embolism Leukocytosis Partial small bowel obstruction Abdominal pain, epigastric Trouble swallowing CERTAIN FOODS WILL STICK WHEN SWALLOWINGCerumen impaction Seasonal allergies Weight loss 30+ lb weight loss in lst 6 monthsChronic back pain PAIN TO BOTH LEGSOsteoarthritis Depression Anxiety History of palpitations "skips beats"Hypertension Chronic nausea GERD (gastroesophageal reflux disease) Migraine Poor historian Pulmonary embolism 4-5 years ago - asymptomatic - incidental finding - treated w/ blood thinners x 6 months, cause?Lung nodules previously biopsied - benignIntractable nausea and vomiting Chest pain, rule out acute myocardial infarction Anorexia Abnormal EKG Pulmonary hypertension GERD (gastroesophageal reflux disease) Surgical History History of colonoscopy History of hernia repair History of Lloyd fundoplication Hx of thyroidectomy PARTIALNausea and vomiting after administration of anesthetic agent Hx of bladder repair surgery FOR SUPPORTHistory of surgery left elbowHx of cholecystectomy Hx of tonsillectomy S/P ANKIT-BSO HXHistory of esophagogastroduodenoscopy (EGD) w/ dilatationHistory of colostomy 10 -12years - placed b/c of incontinence (cause??)History of bronchoscopy Family History Mother Hypertension CancerFather CancerOther No family history of adverse response to anesthesia No family history of bleeding disorder Social History Smoking Status: Unknown if ever smoked Second Hand Exposure: No; Do You Dip or Chew Tobacco: No; Hx Alcohol Use: No Hx Substance Use: No Preferred Language: Emir[place] Communication Ability: Effective Airdox Fitter Required: No Beliefs That Will Affect Care: None marital status: / Current Living Situation: Alone How many Children do You have: 4 Feels Safe at Home: Yes Safety Concerns: Feels Safe At This Time Assistive Devices: Walker Review of Systems Review of Systems: All systems reviewed & are unremarkable except as noted in HPI & below Physical Exam Constitutional: WD/WN, vitals as above + thin, + frail appearing, cooperative and comfortable; not in distress ENMT: Ears: no hearing impairment Neck: trachea midline Respiratory: normal respiratory effort, lungs clear to auscultation Auscultation: + diminished lung sounds Cardiovascular: Rate/Rhythm: regular rate and regular rhythm Vessels: femoral pulses present, posterior tibial pulses present (RLE +2, LLE +2) and dorsalis pedis pulses present (RLE +3, LLE +1); + abnormal peripheral pulses Ext remities: normal capillary refill; no edema Gastrointestinal (Abdomen): Inspection/Auscultation: normal bowel sounds; + abdomen abnormal to inspection (colostomy noted) Percussion/Palpation: abdomen soft; abdomen nontender Musculoskeletal: no cyanosis or clubbing, extremities motor strength 5/5 Skin: no rashes, warm and dry Neurologic: moves all extremities and awake; no focal motor deficits and not confused (minimally) Speech / Cognition: no expressive aphasia and no receptive aphasia Psychiatric: A+Ox3, euthymic affect (knows location, date, but unable to state president) Results & Data Vital Signs (Past 12 Hours) Vital Signs Temp Pulse Pulse Resp BP BP Pulse Ox 05/24/24 07:52 36.9 C 86 19 161/103 H 98 05/24/24 07:24 67 05/24/24 02:54 37.2 C 63 14 143/83 H 97 05/23/24 22:51 64 05/23/24 22:41 37.2 C 62 14 145/81 H 95 O2 Del Method 05/24/24 07:52 Room Air 05/24/24 07:24 05/24/24 02:54 Room Air 05/23/24 22:51 05/23/24 22:41 Room Air Signed By: <Electronically signed by Judi Arboleda PA-C> 05/24/24 0942 <Electronically signed by Av Guerra MD> 05/24/24 1038 Created: 05/24/24 0917 The status of this report is Signed. Draft = Not yet reviewed or approved by Medical Physician. Signed = Reviewed and approved by Medical Physician. Admission Exam Per Admitting Provider Constitutional: WD/WN, vitals as above + thin, + frail appearing, cooperative and comfortable; not in distress ENMT: Ears: no hearing impairment Neck: trachea midline Respiratory: normal respiratory effort, lungs clear to auscultation Auscultation: + diminished lung sounds Cardiovascular: Rate/Rhythm: regular rate and regular rhythm Vessels: femoral pulses present, posterior tibial pulses present (RLE +2, LLE +2) and dorsalis pedis pulses present (RLE +3, LLE +1); + abnormal peripheral pulses Extremities : normal capillary refill; no edema Gastrointestinal (Abdomen): Inspection/Auscultation: normal bowel sounds; + abdomen abnormal to inspection (colostomy noted) Percussion/Palpation: abdomen soft; abdomen nontender Musculoskeletal: no cyanosis or clubbing, extremities motor strength 5/5 Skin: no rashes, warm and dry Neurologic: moves all extremities and awake; no focal motor deficits and not confused (minimally) Speech / Cognition: no expressive aphasia and no receptive aphasia Psychiatric: A+Ox3, euthymic affect (knows location, date, but unable to state president) Principal Diagnosis Right internal carotid artery stenosis Discharge Exam Constitutional WD/WN, vitals as above Neck trachea midline Respiratory normal respiratory effort; no respiratory distress Cardiovascular Rate/Rhythm: regular rate and regular rhythm Skin + incision (dry and clean, min edema and ecchymosis) Neurologic CN's II-XI intact bilaterally and moves all extremities Psychiatric A+Ox3, euthymic affect Discharge Data Allergies Allergy/AdvReac Type Severity Reaction Status Date / Time verapamil AdvReac Severe "THINGS Verified 06/09/24 09:14 STARTED TO SHUT DOWN-HEART, B/P TILL GOT TO ER". aspirin AdvReac Mild GI UPSET, Verified 06/09/24 09:14 TAKES BABY ASA WITHOUT PROB lactose AdvReac Gastrointestinal Verified 06/09/24 09:14 Upset Consultations 06/09/24 15:41 Consult Machine Cell Tuber Routine Procedures Performed Operation Date: 06/09/24 10:10 Actual Procedures p Right Transcarotid Artery Revascularization(Right) - Av Guerra MD Ordered Studies 06/09/24 07:08 EV angio carotid cerv RT Routine US EV guide vascular access Routine Hospital Course (1) Carotid stenosis, right: Patient PO#1 right TCAR. Doing well without complications. D/C today. Total Time Total Time Spent Total Time Spent (In Minutes): 0 Discharge Plan Discharge Items Reason For Visit: Right Carotid Artery Stenosis Discharge Diagnosis: Right internal carotid artery stenosis Activity: Per Instructions section Non-emergency contact: Surgeon Call non-emergency contact if: your temperature is above 101.5, your wound has i ncreased redness, your wound has increased drainage and your wound pain has increased Follow-up/Referrals: Twila Denton MD [Primary Care Provider] - Diet: Heart Healthy Addtl Attending Provider Instructions: SPECIAL CARE INSTRUCTIONS: Medications: * Continue to take Aspirin, Plavix, and statin as directed. Incision Care: * You may shower, but do not rub incision. You may let the warm soapy water run over it. Be sure to dry the incision well after bathing. * Do not shave directly over the incision until it is healed. * DO NOT IMMERSE THE INCISION IN A TUB/POOL/etc. UNTIL HEALED. Restrictions: * Do not drive for at least one week or if you are still taking any narcotic pain medication. * Do not lift anything heavier than a gallon of milk for one week after going home. Possible Complications: * Numbness - It is normal to have some numbness around the incision. Numbness can extend beyond the incision to areas of the neck, ear and face. The numbness is due to bruising of nerves during the surgery and will gradually improve over a period of months. * Hoarseness/Difficulty Speaking and Swallowing - The bruising of nerves in the neck can also cause a hoarse voice, difficulty speaking or swallowing. This may improve over time, HOWEVER, if it continues for more than a few days please contact our office ([phone]). * Excessive Swelling - There will be some swelling immediately after surgery which usually resolves within one week. If you notice that the swelling is getting worse, notify your surgeon ([phone]). * Drainage/Bleeding - If there is any drainage or bleeding, it should be a very small amount (less than a teaspoon per day). If you have excessive bleeding or drainage from the incision, call your surgeon ([phone]) right away. ACTIVATION OF EMERGENCY MEDICAL SYSTEM: Call 911, immediately, if you experience any of the following: Warning Signs and Symptoms of Stroke: * Sudden numbness or weakness of the face, arm or leg, especially on one side of the body * Sudden confusion, trouble speaking or understanding * Sudden trouble seeing in one or both eyes * Sudden trouble walking, dizziness, loss of balance or coordination * Sudden severe headache with no cause Do not delay calling 911 if you experience any warning signs or symptoms of a stroke. Delay in seeking medical attention may affect what treatments can be given to you. Risk Factors for Stroke: You can reduce your chances of stroke by working with your medical provider to adopt a healthy lifestyle. Some specific ways to lower your chance of stroke are: * If you are a smoker, now is the time to stop smoking cigarettes * If you are diabetic, improve the control of your blood sugars * Avoid excessive amounts of alcohol * Control high blood pressure * Lose weight if you are overweight * Be sure to lead an active lifestyle * Eat a healthy diet low in salt, cholesterol and fat You should know about other risk factors for stroke that you are unable to control. These include: * Age 55 years or older * Male gender * Certain racial groups: , or / * Family History of Stroke, Mini stroke or Heart Attack * Sickle Cell Disease You will be receiving a call from the Vascular Surgery Nurse after you are discharged. FOLLOW UP VISIT: It is important for you to keep your follow up appointments with your medical provider. Keep any scheduled doctor appointments. Call [phone] to schedule a follow up appointment if one not already scheduled. Pending Studies at Discharge: No Stand-Alone Forms: My [facility] [employer], Smoking Cessation Medications and DC Order Prescriptions: New oxycodone-acetaminophen [Percocet] 5-325 mg tablet 1 tab PO Q8H PRN (Reason: pain) Qty: 7 0RF Continued levothyroxine 25 mcg Tablet 25 mcg PO QAM Protonix 20 mg tablet,delayed release (DR/EC) 40 mg PO QPM Eliquis 2.5 mg Tablet 2.5 mg PO BID 30 Days Qty: 60 3RF Rx Instructions: PER PT'S DAUGHTER "I SAW HER TAKE AM MEDS ON 04/19/24, HAVE NO IDEA WHEN SHE T OOK THEM BEFORE OR SINCE". potassium chloride 8 mEq capsule, extended release 16 meq PO QAM Rx Instructions: PER PT'S DAUGHTER "I SAW HER TAKE AM MEDS ON 04/19/24, HAVE NO IDEA WHEN SHE TOOK THEM BEFORE OR SINCE". [id number]-[id number] [Esgic] 50-325-40 mg tablet 1 tab PO Q4H MDD 6 TABS/24 HOURS PRN (Reason: Migraine Headache) Rx Instructions: PER PT'S DAUGHTER "I SAW HER TAKE AM MEDS ON 04/19/24, HAVE NO IDEA WHEN SHE TOOK THEM BEFORE OR SINCE". cholecalciferol (vitamin D3) [Vitamin D3] 125 mcg (5,000 unit) Tablet 125 mcg PO QPM Rx Instructions: PER PT'S DAUGHTER "I SAW HER TAKE AM MEDS ON 04/19/24, HAVE NO IDEA WHEN SHE TOOK THEM BEFORE OR SINCE". diltiazem HCl [Cardizem CD] 240 mg capsule,extended release 24hr 240 mg PO QPM Rx Instructions: PER PT'S DAUGHTER "I SAW HER TAKE AM MEDS ON 04/19/24, HAVE NO IDEA WHEN SHE TOOK THEM BEFORE OR SINCE". metoprolol succinate [Toprol XL] 200 mg tablet extended release 24 hr 200 mg PO QAM aspirin 81 mg Tablet,Delayed Release (Dr/Ec) 81 mg PO QAM Qty: 30 0RF clopidogrel [Plavix] 75 mg tablet 75 mg PO QAM lorazepam 1 mg tablet 0.5 mg PO TID PRN (Reason: Anxiety) atorvastatin 40 mg tablet 40 mg PO PM Admission Data Admit Date/Time: 06/09/24 09:54 Attending Provider: Av Guerra Admit Provider: Av Guerra Primary Care Provider: Twila Denton Other Providers: Tab Lam; Tim Jones; Paco Salinas; Clement Boone; Jay Tamez; Darius Schumacher; Calvin Simpson; Bhavna Walden; Shae Buenrostro; Dhaval Reed; Sylvain Benedr; Twila Kennedy
[2024-06-10 13:12] VITALS: BP 110/72
== END 2024-06-10 14:04 | disposition home health service (06) | DRG 36 ==
LOC: ASU 08:30 → 1E 09:54
PROC: EV.TCAR (2024-06-09 10:10)

== ENCOUNTER 2024-08-04 19:52 | Inpatient (IN) ==
--- NOTE | 2024-08-04 20:14 | Emergency Department Note ---
Impression & Plan Acute UTI (urinary tract infection), AMS (altered mental status), JESS (acute kidney injury), Pleural effusion ED Provider Note NAME: LEXX ROBERSON AGE: 89 SEX: F : 1935 ARRIVES VIA: Ambulance INFORMANT: Patient, EMS ED PROVIDER(S): Merritt Sewell DO CHIEF COMPLAINT: Altered mental status HPI: The patient is an 89-year-old female who has a history of paroxysmal atrial fibrillation as well as stroke who presented to the emergency department by ambulance for an evaluation of altered mental status. According to the prehospital personnel the patient called the neighbor and asked to be taken to a family member's house. When she went to the family's house she was found to be confused. The patient does have a history of a recent fall. She does take oral anticoagulants because of a history of carotid artery disease as well as cerebral artery disease as well as paroxysmal atrial fibrillation. Patient denies having any headache. The patient denies any complaints at this time. The family called 911. ROS: See above HPI for pertinent positives & negatives. A total of 10 systems reviewed and were otherwise negative. PAST MEDICAL HISTORY: See Below PAST SURGICAL HISTORY: See Below FAMILY HISTORY: See Below SOCIAL HISTORY: See Below HOME MEDICATIONS: See Below ALLERGIES: See Below VITALS: See Below PHYSICAL EXAMINATION: GENERAL: The is awake and alert. The patient is mildly anxious appearing. EYES: The conjunctivae are clear. The pupils are round and reactive. EARS, NOSE, MOUTH AND THROAT: The nose is without any evidence of any deformity. Is ecchymosis noted over the right cheek. NECK: The neck is nontender and supple. RESPIRATORY: Normal respiratory effort is noted there is no evidence of wheezing rhonchi or rales CARDIOVASCULAR: Regular rate and rhythm noted there no murmurs rubs or gallops normal S1 normal S2. GASTROINTESTINAL: The abdomen is soft. Abdomen is nontender. MUSCULOSKELETAL/EXTREMITIES: There is no evidence of gross deformity full range of motion is noted in the hips and shoulders. SKIN: There is no obvious evidence of any rash. There are no petechiae, pallor or cyanosis noted. NEUROLOGIC: Patient is awake and oriented to person place and situation. Strength was symmetric. There is no facial droop. Speech was clear. MEDICAL DECISION MAKING: The patient is an 89-year-old female who presented to the emergency department by ambulance. According to the patient's family member she has been confused. The patient was awake and alert to my physical exam. I discussed the patient's laboratory and radiographic studies with her. She was found to have signs of JESS as well as urinary tract infection. She was treated with IV fluids and IV antibiotics. I discussed the patient's condition with her daughter. She is very concerned and does not feel safe with her coming home. She is unsure if she needs placement. She is not comfortable with discharge at this time. I discussed this case with the on-call [facility] hospitalist. Triage Nursing notes reviewed. Prior medical records reviewed Vital Signs: reviewed and remarkable for no significant abnormalities Differential diagnosis: Infection, hypoglycemia, electrolyte abnormalities, overdose, toxicologic, cardiac sources, intracerebral event, neurologic, trauma, as well as other pathologies. ER treatment provided: See below Diagnostics interpreted by me: ECG: EKG was obtained in the emergency department. My interpretation is atrial paced rhythm with first-degree block. This was 68 bpm. There were no [place] beats or PVCs. Nonspecific ST depressions were noted in the inferior and lateral leads. This was compared to a tracing from May 22, 2024. No changes were noted. Cardiac Monitoring: An order was placed for continuous cardiac monitoring. The monitor shows a rate of 66 bpm with paced rhythm. Laboratory studies: As stated above and show below. Imaging studies: See below. Radiographic imaging was reviewed by myself Consultation(s): Dr. Escobar was notified about the patient. Past Med/Surg History Problem List (Updated 08/04/24 @ 23:37 by Merritt Sewell DO) Pleural effusion (Acute) JESS (acute kidney injury) (Acute) AMS (altered mental status) (Acute) Acute UTI (urinary tract infection) (Acute) CVA (cerebral vascular accident) Severe malnutrition Carotid stenosis, right Acute kidney injury superimposed on CKD C4 cervical fracture C5 cervical fracture Closed right hip fracture Fracture of spinous process of cervical vertebra (Acute) Anticoagulant long-term use Cardiac pacemaker Allergic rhinitis Pacemaker Tachy-roge syndrome Paroxysmal atrial fibrillation Colostomy in place Hypothyroid (Chronic) Anxiety (Chronic) Depression (Chronic) HTN (hypertension) (Chronic) Medical History Encounter for pre-operative examination 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 Hypomagnesemia Dysrhythmia had pacer placed, 02/2022 SVT (supraventricular tachycardia) hx; f/u delmy murphy Hypokalemia Headache resolved History of pulmonary embolism years ago- asymptomatic - incidental finding - treated w/ blood thinners x 6 months, cause? Leukocytosis hx Partial small bowel obstruction Trouble swallowing w/certain foods Seasonal allergies Weight loss hx-30+ lb weight loss in within 6 month perior pt has ongoing problem gaining weight per dtr., since pt's in 2020 Chronic back pain pain to both legs Osteoarthritis Depression Anxiety History of palpitations "skips beats" Hypertension Chronic nausea GERD (gastroesophageal reflux disease) Migraine hx Poor historian interview needs to be done with dtr. Lung nodules previously biopsied - benign Intractable nausea and vomiting resolved Anorexia ongoing for past 3 years Pulmonary hypertension Surgical History History of carpal tunnel surgery of right wrist History of open reduction and internal fixation (ORIF) procedure rt hip, 02/2024 S/P cardiac pacemaker procedure 02/2022, lead replacement 1 day after insertion; f/u delmy haskins History of colonoscopy History of hernia repair History of Lloyd fundoplication Hx of thyroidectomy PARTIAL Hx of bladder repair surgery FOR SUPPORT History of surgery left elbow Hx of cholecystectomy Hx of tonsillectomy S/P ANKIT-BSO HX History of esophagogastroduodenoscopy (EGD) w/ dilatation History of colostomy ~2005 - placed b/c of incontinence History of bronchoscopy Family History Mother Hypertension Cancer Father Cancer Other No family history of adverse response to anesthesia No family history of bleeding disorder Social History Smoking Status: Never smoker Second Hand Exposure: No; Do You Dip or Chew Tobacco: No; Hx Alcohol Use: Yes Alcohol type: wine Hx Substance Use: No Preferred Language: Australian Communication Ability: Effective Obstetric Anaesthetist Required: No Beliefs That Will Affect Care: None marital status: / Current Living Situation: Alone How many Children do You have: 4 Feels Safe at Home: No Is there a partner from a previous relationship who is making you feel unsafe now?: No Assistive Devices: Denture - Lower, Glasses and Walker Allergies Allergies Allergy/AdvReac Type Severity Reaction Status Date / Time verapamil AdvReac Severe "THINGS Verified 06/09/24 09:14 STARTED TO SHUT DOWN-HEART, B/P TILL GOT TO ER". aspirin AdvReac Mild GI UPSET, Verified 06/09/24 09:14 TAKES BABY ASA WITHOUT PROB lactose AdvReac Gastrointestinal Verified 06/09/24 09:14 Upset Home Meds Home Medications Medication Instructions Recorded Confirmed levothyroxine 25 mcg tablet 25 mcg PO QAM 07/03/18 06/09/24 pantoprazole 20 mg tablet,delayed 40 mg PO QPM gerd 05/27/22 06/09/24 release (Protonix) [id number]-[id number] 1 tab PO Q4H PRN Migraine Headache 05/22/24 06/09/24 50 mg-325 mg-40 mg tablet (Esgic) cholecalciferol (vitamin D3) 125 125 mcg PO QPM 05/22/24 06/09/24 mcg (5,000 unit) tablet (Vitamin D3) diltiazem HCl 240 mg 240 mg PO QPM 05/22/24 06/09/24 capsule,extended release 24 hr (Cardizem CD) metoprolol succinate 200 mg 200 mg PO QAM 05/22/24 06/09/24 tablet,extended release 24 hr (Toprol XL) potassium chloride 8 mEq 16 meq PO QAM 05/22/24 06/09/24 capsule,extended release clopidogrel 75 mg tablet (Plavix) 75 mg PO QAM 06/03/24 06/09/24 lorazepam 1 mg tablet 0.5 mg PO TID PRN Anxiety 06/03/24 06/09/24 atorvastatin 40 mg tablet 40 mg PO PM 06/09/24 06/09/24 Previous Rx's Medication Instructions Recorded apixaban 2.5 mg tablet (Eliquis) 2.5 mg PO BID 30 days #60 tabs 10/20/21 aspirin 81 mg tablet,delayed 81 mg PO QAM #30 tabs 05/25/24 release oxycodone-acetaminophen 5 mg-325 1 tab PO Q8H PRN pain #7 tabs 06/10/24 mg tablet (Percocet) Results & Data (ED) Vital Signs Vital Signs - 24 hr 08/04/24 20:05 08/04/24 20:08 08/04/24 21:50 Pulse Rate 62 64 Pulse Rate [Right Finger] 60 Respiratory Rate 12 16 Respiratory Effort / Characteristics Non-Labored Spontaneous Respiratory Depth Normal Respiratory Pattern Regular Blood Pressure 170/111 H Blood Pressure [Right Arm] 192/89 H Blood Pressure Mean 130 Blood Pressure Mean [Right Arm] 123 Pulse Oximetry 99 97 Oxygen Delivery Method Room Air Room Air Sepsis Recent Fever Within 48 Hours No Sepsis New/Unexplained Change in Mental Status No Sepsis Action Taken by Nursing No Action Required 08/05/24 00:00 Pulse Rate 66 Pulse Rate [Right Finger] Respiratory Rate Respiratory Effort / Characteristics Respiratory Depth Respiratory Pattern Blood Pressure Blood Pressure [Right Arm] Blood Pressure Mean Blood Pressure Mean [Right Arm] Pulse Oximetry Oxygen Delivery Method Sepsis Recent Fever Within 48 Hours Sepsis New/Unexplained Change in Mental Status Sepsis Action Taken by Alf Medications Current Medication List: was personally reviewed by me Laboratory Data Attestation: I reviewed the patient's lab results. 08/04/24 21:10 08/04/24 21:10 Lab Results 08/04/24 08/04/24 Range/Units 21:04 21:10 WBC 9.12 (4.8-10.8) K/ul RBC 3.89 L (4.20-5.40) M/uL Hgb 12.7 (12.0-16.0) g/dl Hct 39.3 (37.0-47.0) % MCV 101.0 H (80.0-100.0) fL MCH 32.6 (25.0-34.0) pg MCHC 32.3 (32.0-36.0) g/dL RDW Std Deviation 47.9 H (36.4-46.3) fL RDW Coeff of Hubert 12.9 (11.5-14.5) % Plt Count 252 (130-400) K/uL MPV 8.9 L (9.4-12.4) fL Immature Gran % (Auto) 0.3 % Neut % (Auto) 70.1 % Lymph % (Auto) 18.4 % [place] % (Auto) 10.1 % Eos % (Auto) 0.7 % Baso % (Auto) 0.4 % Neut # (Auto) 6.39 (1.40-6.50) K/uL Lymph # (Auto) 1.68 (1.20-3.40) K/uL [place] # (Auto) 0.92 H (0.11-0.59) K/uL Eos # (Auto) 0.06 (0.00-0.50) K/uL Baso # (Auto) 0.04 (0.00-0.20) K/uL Immature Gran # (Auto) 0.03 (0.01-0.20) K/uL PT 11.6 (9.0-12.0) Seconds INR 1.1 (0.9-1.1) APTT 29 (21-31) Seconds PTT Ratio 1.1 Sodium 136 (136-145) mmol/L Potassium 4.5 (3.5-5.1) mmol/L Chloride 104 (98-107) mmol/L Carbon Dioxide 26 (21-32) mmol/L Anion Gap 6 (3-11) BUN 27 H (6-23) mg/dl Creatinine 1.39 H (0.6-1.2) mg/dl Est Cr Clr Drug Dosing 20.5 ml/min eGFR 36.73 BUN/Creatinine Ratio 19.4 (10-20) Glucose 114 H (70-99(Fasting)) mg/dl Calcium 9.6 (8.6-10.3) mg/dl Magnesium 1.7 (1.7-2.4) mg/dl Total Bilirubin 0.5 (0.2-1.0) mg/dl AST 21 (13-39) U/L ALT 14 (7-52) U/L Alkaline Phosphatase 91 (34-104) U/L Total Creatine Kinase 135 (26-192) U/L Troponin I High Sens 9.4 (0-14) pg/ml Total Protein 7.4 (6.0-8.3) gm/dl Albumin 4.2 (3.4-5.0) gm/dl Globulin 3.2 (2.5-4.0) gm/dl Albumin/Globulin Ratio 1.3 (0.9-2) TSH 5.933 H (0.300-4.500) uIu/ml Free T4 0.89 (0.61-1.60) ng/dl Urine Color Yellow Urine Appearance Clear (Clear) Urine pH 7.0 (4.5-7.5) Ur Specific [place] 1.011 (1.000-1.030) Urine Protein Negative (Negative) Urine Glucose (UA) Negative (Negative) Urine Ketones Negative (Negative) Urine Blood Negative (Negative) Urine Nitrite Positive A (Negative) Urine Bilirubin Negative (Negative) Urine Urobilinogen Negative (Negative) Ur Leukocyte Esterase 2+ H (Negative) Urine WBC (Auto) 11-20 H (0-5) /hpf Urine RBC (Auto) 0-2 (0-2) /hpf U Hyaline Cast (Auto) 3-5 H (0-2) /lpf U Epithel Cells (Auto) 0-2 (0-2) /hpf Urine Bacteria (Auto) 4+ H (None Seen) Administered Medications Sodium Chloride (Nss) 500 mls @ 999 mls/hr IV .Q31M ONE Stop: 08/05/24 00:09 Last Admin: 08/04/24 23:58 Dose: 999 mls/hr Documented By: MED Discontinued Medications Ceftriaxone Sodium (Rocephin) 2,000 mg in 50 mls @ 100 mls/hr IV NOW STA Stop: 08/04/24 22:09 Last Infusion: 08/04/24 22:52 Dose: Infused Documented By: Admin: 08/04/24 21:50 Dose: 100 mls/hr Documented By: ASW Imaging Data Attestation: I personally reviewed and interpreted this imaging study as follows: My Impression: 1 view chest x-ray was obtained in the emergency department. My interpretation is pacemaker noted, there is no free air, pleural effusion at the left base was noted, there was hilar fullness on the left, this was compared to a chest x-ray from May 22, 2024. No specific changes were noted. No acute disease noted. CT of the brain was obtained in the emergency department. My interpretation is no intracranial hemorrhage or mass effect, final report below. Radiologist's Impression: Cervical Spine CT 08/04/24 20:03 Exam(s): CT C SPINE EXAM: CT Cervical Spine Without Intravenous Contrast CLINICAL HISTORY: Reason for exam: fall. TECHNIQUE: Axial computed tomography images of the cervical spine without intravenous contrast. CTDI is 18.37 mGy and DLP is 342.37 mGy-cm. Automated exposure control was utilized for the study. A dose lowering technique was utilized adhering to the principles of ALARA. COMPARISON: Prior CT cervical spine from February 13, 2024. FINDINGS: Vertebrae: Unremarkable. No acute fracture. Discs/spinal canal/neural foramina: No acute findings. No spinal canal stenosis. Soft tissues: Right carotid stent in place. IMPRESSION: No evidence of acute cervical spine pathology. Electronically signed by: Jessica Gupta MD 08/04/24 22:[address] 08/04/24 20:03 Exam(s): CT HEAD Without Contrast EXAM: CT Head Without Intravenous Contrast CLINICAL HISTORY: Reason for exam: ams. TECHNIQUE: Axial computed tomography images of the head/brain without intravenous contrast. CTDI is 36.18 mGy and DLP is 546.36 mGy-cm. Automated exposure control was utilized for the study. A dose lowering technique was utilized adhering to the principles of ALARA. COMPARISON: Prior brain MRI from May 24, 2024. FINDINGS: Brain: Unremarkable. No hemorrhage. Moderate nonspecific white matter changes. No edema. Ventricles: Mild ventriculomegaly. Bones/joints: Unremarkable. No acute fracture. Soft tissues: Unremarkable. Sinuses: Unremarkable as visualized. No acute sinusitis. Mastoid air cells: Unremarkable as visualized. No mastoid effusion. IMPRESSION: No evidence of acute intracranial pathology. Electronically signed by: Jessica Gupta MD 08/04/24 22:51 PM Discharge Plan Visit Data Chief Complaint: Altered Mental Status Stated Complaint: AMS ED Provider: Merritt Sewell Discharge Problem: Acute UTI (urinary tract infection), AMS (altered mental status), JESS (acute kidney injury), Pleural effusion Patient Disposition: Being Evaluated by Hospitalist Forms Stand Alone Forms: My [facility] [place] [employer] Prescriptions Prescriptions: No Action levothyroxine 25 mcg Tablet 25 mcg PO QAM Protonix 20 mg tablet,delayed release (DR/EC) 40 mg PO QPM Eliquis 2.5 mg Tablet 2.5 mg PO BID 30 Days Qty: 60 3RF Rx Instructions: PER PT'S DAUGHTER "I SAW HER TAKE AM MEDS ON 04/19/24, HAVE NO IDEA WHEN SHE TOOK THEM BEFORE OR SINCE". potassium chloride 8 mEq capsule, extended release 16 meq PO QAM Rx Instructions: PER PT'S DAUGHTER "I SAW HER TAKE AM MEDS ON 04/19/24, HAVE NO IDEA WHEN SHE TOOK THEM BEFORE OR SINCE". [id number]-[id number]-[id number] [Esgic] 50-325-40 mg tablet 1 tab PO Q4H MDD 6 TABS/24 HOURS PRN (Reason: Migraine Headache) Rx Instructions: PER PT'S DAUGHTER "I SAW HER TAKE AM MEDS ON 04/19/24, HAVE NO IDEA WHEN SHE TOOK THEM BEFORE OR SINCE". cholecalciferol (vitamin D3) [Vitamin D3] 125 mcg (5,000 unit) Tablet 125 mcg PO QPM Rx Instructions: PER PT'S DAUGHTER "I SAW HER TAKE AM MEDS ON 04/19/24, HAVE NO IDEA WHEN SHE TOOK THEM BEFORE OR SINCE". diltiazem HCl [Cardizem CD] 240 mg capsule,extended release 24hr 240 mg PO QPM Rx Instructions: PER PT'S DAUGHTER "I SAW HER TAKE AM MEDS ON 04/19/24, HAVE NO IDEA WHEN SHE TOOK THEM BEFORE OR SINCE". metoprolol succinate [Toprol XL] 200 mg tablet extended release 24 hr 200 mg PO QAM aspirin 81 mg Tablet,Delayed Release (Dr/Ec) 81 mg PO QAM Qty: 30 0RF clopidogrel [Plavix] 75 mg tablet 75 mg PO QAM lorazepam 1 mg tablet 0.5 mg PO TID PRN (Reason: Anxiety) atorvastatin 40 mg tablet 40 mg PO PM oxycodone-acetaminophen [Percocet] 5-325 mg tablet 1 tab PO Q8H PRN (Reason: pain) Qty: 7 0RF Referrals Referrals: Twila Denton MD [Primary Care Provider] - Discharge Problem: AMS (altered mental status) Qualifiers: Altered mental status type: unspecified Qualified Code(s): R41.82 - Altered mental status, unspecified
[2024-08-04 21:18] LABS: Appearance Urine Clear (Clear); Bacteria Urine Automated 4+ (None Seen); Bilirubin Urine Negative (Negative); Blood Urine Negative (Negative); Color Urine Yellow; Epithelial Cell Urine Auto 0-2 /hpf (0-2); Glucose Urine UA Negative (Negative); Ketones Urine Negative (Negative); Leukocyte Esterase Urine 2+ (Negative); Nitrite Urine Positive (Negative); Protein Urine Negative (Negative); RBC Urine Automated 0-2 /hpf (0-2); Specific Gravity Urine 1.011 (1.000-1.030); Urobilinogen Urine Negative (Negative)
[2024-08-04 21:44] LABS: Albumin Globulin Ratio 1.3 (0.9-2); Albumin Level 4.2 gm/dl (3.4-5.0); BUN Creatinine Ratio 19.4 (10-20); Bilirubin,Total 0.5 mg/dl (0.2-1.0); Calcium 9.6 mg/dl (8.6-10.3); Creatinine Clr Calc Pharmacy 20.5 ml/min; Globulin 3.2 gm/dl (2.5-4.0); Magnesium 1.7 mg/dl (1.7-2.4); Potassium 4.5 mmol/L (3.5-5.1); Total Protein 7.4 gm/dl (6.0-8.3)
[2024-08-04 21:48] LABS: Basophils # (auto) 0.04 K/uL (0.00-0.20); Basophils % (auto) 0.4 %; Eosinophils # (auto) 0.06 K/uL (0.00-0.50); Eosinophils % (auto) 0.7 %; Hematocrit (blood only) 39.3 % (37.0-47.0); Hemoglobin 12.7 g/dl (12.0-16.0); Immature Granulocytes # (auto) 0.03 K/uL (0.01-0.20); Immature Granulocytes % (auto) 0.3 %; Lymphocytes # (auto) 1.68 K/uL (1.20-3.40); Lymphocytes % (auto) 18.4 %; Mean Corpuscular Hemoglobin 32.6 pg (25.0-34.0); Mean Corpuscular Hgb Conc 32.3 g/dL (32.0-36.0); Mean Platelet Volume 8.9 fL (9.4-12.4); Monocytes # (auto) 0.92 K/uL (0.11-0.59); Monocytes % (auto) 10.1 %; Neutrophils # (auto) 6.39 K/uL (1.40-6.50); Neutrophils % (auto) 70.1 %; Platelet Count 252 K/uL (130-400); RDW Coefficient of Variation 12.9 % (11.5-14.5); RDW Standard Deviation 47.9 fL (36.4-46.3); Red Blood Count 3.89 M/uL (4.20-5.40); White Blood Count 9.12 K/ul (4.8-10.8)
[2024-08-04 21:50] LABS: Troponin I High Sensitivity 9.4 pg/ml (0-14)
[2024-08-04] MEDS: cefTRIAXone SODIUM 2,000 MG/50 ML BAG IV STA (21:50)
[2024-08-04 21:53] LABS: INR 1.1 (0.9-1.1); Partial Thromboplastin Ratio 1.1; Partial Thromboplastin Time 29 Seconds (21-31); Prothrombin Time 11.6 Seconds (9.0-12.0)
[2024-08-04 22:00] LABS: Thyroid Stimulating Hormone 5.933 uIu/ml (0.300-4.500)
[2024-08-04 22:34] LABS: T4 Free Thyroxine 0.89 ng/dl (0.61-1.60)
--- NOTE | 2024-08-04 22:52 | CT Scan Report ---
Exam(s): CT HEAD Without Contrast EXAM: CT Head Without Intravenous Contrast CLINICAL HISTORY: Reason for exam: ams. TECHNIQUE: Axial computed tomography images of the head/brain without intravenous contrast. CTDI is 36.18 mGy and DLP is 546.36 mGy-cm. Automated exposure control was utilized for the study. A dose lowering technique was utilized adhering to the principles of ALARA. COMPARISON: Prior brain MRI from May 24, 2024. FINDINGS: Brain: Unremarkable. No hemorrhage. Moderate nonspecific white matter changes. No edema. Ventricles: Mild ventriculomegaly. Bones/joints: Unremarkable. No acute fracture. Soft tissues: Unremarkable. Sinuses: Unremarkable as visualized. No acute sinusitis. Mastoid air cells: Unremarkable as visualized. No mastoid effusion. IMPRESSION: No evidence of acute intracranial pathology. Electronically signed by: Jessica Gupta MD 08/04/24 22:51 PM
--- NOTE | 2024-08-04 22:57 | CT Scan Report ---
Exam(s): CT C SPINE EXAM: CT Cervical Spine Without Intravenous Contrast CLINICAL HISTORY: Reason for exam: fall. TECHNIQUE: Axial computed tomography images of the cervical spine without intravenous contrast. CTDI is 18.37 mGy and DLP is 342.37 mGy-cm. Automated exposure control was utilized for the study. A dose lowering technique was utilized adhering to the principles of ALARA. COMPARISON: Prior CT cervical spine from February 13, 2024. FINDINGS: Vertebrae: Unremarkable. No acute fracture. Discs/spinal canal/neural foramina: No acute findings. No spinal canal stenosis. Soft tissues: Right carotid stent in place. IMPRESSION: No evidence of acute cervical spine pathology. Electronically signed by: Jessica Gupta MD 08/04/24 22:57 PM
[2024-08-04] MEDS: SODIUM CHLORIDE 0.9% 500 ML IV ONE (23:58)
[2024-08-05] MEDS: HALOPERIDOL LACTATE 5 MG/ML 1 ML VIAL IM STA (00:32)
--- NOTE | 2024-08-05 00:34 | History & Physical Report ---
Date of Service August 05, 2024 Assessment & Plan (1) JESS (acute kidney injury): (2) AMS (altered mental status): (3) Acute UTI (urinary tract infection): (4) CVA (cerebral vascular accident): (5) Anticoagulant long-term use: (6) Paroxysmal atrial fibrillation: Plan Acute urinary tract infection- Follow urine culture and sensitivity Status post NSS 500 mL bolus in the ED Continue ceftriaxone 2 g IV daily Acute kidney injury- Creatinine 1.39 on admission, with base 0.94 Treat UTI and dehydration Repeat laboratories in a.m. Metabolic encephalopathy/mental status changes/agitation- Likely secondary to UTI and dehydration Give Haldol 5 mg IM x 1 now Status post CVA/status post TCAR- CVA during admission from 05/22-05/25/2024 Status post TCAR with right stent on 06/09/2024 CT head, CT cervical spine negative this evening History of Present Illness Chief Complaint: The patient is brought to the emergency department by EMS, due to concerns regarding altered mental status/confusion Primary Care Provider: Twila Denton MD The patient is an 89-year-old female with a past medical history including urinary tract infection, CVA during admission 05/22-05/25/2024,, status post right CEA on 06/09/2024, severe malnutrition, C4 and C5 cervical fractures, long-term anticoagulant use, tachybradycardia syndrome, presence of pacemaker, PAF, anxiety with depression, and hypertension. The patient had called a neighbor, to take her to her family's house, when she arrived there she was noted to be confused, and EMS was called to bring the patient to [facility] for assessment. Allergies Allergy/AdvReac Type Severity Reaction Status Date / Time verapamil AdvReac Severe "THINGS Verified 06/09/24 09:14 STARTED TO SHUT DOWN-HEART, B/P TILL GOT TO ER". aspirin AdvReac Mild GI UPSET, Verified 06/09/24 09:14 TAKES BABY ASA WITHOUT PROB lactose AdvReac Gastrointestinal Verified 06/09/24 09:14 Upset Home Medications Medication Instructions Recorded Confirmed Type levothyroxine 25 mcg tablet 25 mcg PO QAM 07/03/18 06/09/24 History apixaban 2.5 mg tablet (Eliquis) 2.5 mg PO BID 30 days #60 tabs 10/20/21 06/09/24 Rx pantoprazole 20 mg tablet,delayed 40 mg PO QPM gerd 05/27/22 06/09/24 History release (Protonix) ptzewrvvpt-ykxsmjeslcznf-savxjloq 1 tab PO Q4H PRN Migraine Headache 05/22/24 06/09/24 History 50 mg-325 mg-40 mg tablet (Esgic) cholecalciferol (vitamin D3) 125 125 mcg PO QPM 05/22/24 06/09/24 History mcg (5,000 unit) tablet (Vitamin D3) diltiazem HCl 240 mg 240 mg PO QPM 05/22/24 06/09/24 History capsule,extended release 24 hr (Cardizem CD) metoprolol succinate 200 mg 200 mg PO QAM 05/22/24 06/09/24 History tablet,extended release 24 hr (Toprol XL) potassium chloride 8 mEq 16 meq PO QAM 05/22/24 06/09/24 History capsule,extended release aspirin 81 mg tablet,delayed 81 mg PO QAM #30 tabs 05/25/24 06/09/24 Rx release clopidogrel 75 mg tablet (Plavix) 75 mg PO QAM 06/03/24 06/09/24 History lorazepam 1 mg tablet 0.5 mg PO TID PRN Anxiety 06/03/24 06/09/24 History atorvastatin 40 mg tablet 40 mg PO PM 06/09/24 06/09/24 History oxycodone-acetaminophen 5 mg-325 1 tab PO Q8H PRN pain #7 tabs 06/10/24 Rx mg tablet (Percocet) Past Med/Surg History Problem List (Updated 08/05/24 @ 00:55 by Soha Cedillo) Pleural effusion (Acute) JESS (acute kidney injury) (Acute) AMS (altered mental status) (Acute) Acute UTI (urinary tract infection) (Acute) CVA (cerebral vascular accident) Severe malnutrition Carotid stenosis, right Acute kidney injury superimposed on CKD C4 cervical fracture C5 cervical fracture Closed right hip fracture Fracture of spinous process of cervical vertebra (Acute) Anticoagulant long-term use Cardiac pacemaker Allergic rhinitis Pacemaker Tachy-roge syndrome Paroxysmal atrial fibrillation Colostomy in place Hypothyroid (Chronic) Anxiety (Chronic) Depression (Chronic) HTN (hypertension) (Chronic) Medical History Encounter for pre-operative examination Hx of tachycardia-bradycardia syndrome 02/2022, pacemaker placed Hypothyroidism CVA (cerebral vascular accident) 05/24/24, dr said she had 2 within 2 weeks of finding, no residual effects, brought to [facility] Anticoagulant long-term use Pacemaker 02/2022, [employer] Atrial fibrillation with rapid ventricular response currently on eliquis; f/u delmy murphy cardio. Hypomagnesemia Dysrhythmia had pacer placed, 02/2022 SVT (supraventricular tachycardia) hx; f/u delmy murphy Hypokalemia Headache resolved History of pulmonary embolism years ago- asymptomatic - incidental finding - treated w/ blood thinners x 6 months, cause? Leukocytosis hx Partial small bowel obstruction Trouble swallowing w/certain foods Seasonal allergies Weight loss hx-30+ lb weight loss in within 6 month perior pt has ongoing problem gaining weight per dtr., since pt's in 2020 Chronic back pain pain to both legs Osteoarthritis Depression Anxiety History of palpitations "skips beats" Hypertension Chronic nausea GERD (gastroesophageal reflux disease) Migraine hx Poor historian interview needs to be done with dtr. Lung nodules previously biopsied - benign Intractable nausea and vomiting resolved Anorexia ongoing for past 3 years Pulmonary hypertension Surgical History History of carpal tunnel surgery of right wrist History of open reduction and internal fixation (ORIF) procedure rt hip, 02/2024 S/P cardiac pacemaker procedure 02/2022, lead replacement 1 day after insertion; f/u delmy haskins History of colonoscopy History of hernia repair History of Lloyd fundoplication Hx of thyroidectomy PARTIAL Hx of bladder repair surgery FOR SUPPORT History of surgery left elbow Hx of cholecystectomy Hx of tonsillectomy S/P ANKIT-BSO HX History of esophagogastroduodenoscopy (EGD) w/ dilatation History of colostomy ~2005 - placed b/c of incontinence History of bronchoscopy Family History Mother Hypertension Cancer Father Cancer Other No family history of adverse response to anesthesia No family history of bleeding disorder Social History Smoking Status: Never smoker Second Hand Exposure: No; Do You Dip or Chew Tobacco: No; Hx Alcohol Use: No Hx Substance Use: No Preferred Language: Nigerian Communication Ability: Effective Manager Hospitality Required: No Beliefs That Will Affect Care: None marital status: / Current Living Situation: Alone How many Children do You have: 4 Feels Safe at Home: No Is there a partner from a previous relationship who is making you feel unsafe now?: No Assistive Devices: None Review of Systems Review of Systems: Review of systems is somewhat limited as patient is mildly agitated Physical Exam Physical Exam: The patient is awake, confused and mildly agitated, normocephalic and atraumatic, lying in bed and in no acute distress. HEENT--PERRL, EOMI, mucous membranes and oropharynx mildly dry. Neck--supple. No JVD. No bruits. Thyroid normal, trachea midline, no adenopa thy. Heart--normal S1 and S2. No murmurs, rubs or gallops. Lungs--clear bilaterally, no respiratory distress, no accessory muscle use. Abdomen--normal bowel sounds and soft. Nontender. Nondistended, no hernias or masses, no organomegaly. Extremities--no cyanosis or clubbing. No edema. Dermatologic--normal skin turgor, normal color, no abnormal lymph nodes, no rash. Neurologic--cranial nerves II through XII grossly intact. Rheumatologic--normal range of motion. Psychiatric--mildly agitated Results & Data Results & Data Vital Signs (Past 12 Hours) Vital Signs Pulse Pulse Resp BP BP Pulse Ox O2 Del Method 08/05/24 00:00 66 08/04/24 21:50 60 16 192/89 H 97 Room Air 08/04/24 20:08 64 08/04/24 20:05 62 12 170/111 H 99 Room Air Laboratory Results Laboratory Results WBC 9.12 K/ul (4.8-10.8) 08/04/24 21:10 RBC 3.89 M/uL (4.20-5.40) L 08/04/24 21:10 Hgb 12.7 g/dl (12.0-16.0) 08/04/24 21:10 Hct 39.3 % (37.0-47.0) 08/04/24 21:10 MCV 101.0 fL (80.0-100.0) H 08/04/24 21:10 MCH 32.6 pg (25.0-34.0) 08/04/24 21:10 MCHC 32.3 g/dL (32.0-36.0) 08/04/24 21:10 RDW Std Deviation 47.9 fL (36.4-46.3) H 08/04/24 21:10 RDW Coeff of Hubert 12.9 % (11.5-14.5) 08/04/24 21:10 Plt Count 252 K/uL (130-400) 08/04/24 21:10 MPV 8.9 fL (9.4-12.4) L 08/04/24 21:10 Immature Gran % (Auto) 0.3 % 08/04/24 21:10 Neut % (Auto) 70.1 % 08/04/24 21:10 Lymph % (Auto) 18.4 % 08/04/24 21:10 [place] % (Auto) 10.1 % 08/04/24 21:10 Eos % (Auto) 0.7 % 08/04/24 21:10 Baso % (Auto) 0.4 % 08/04/24 21:10 Neut # (Auto) 6.39 K/uL (1.40-6.50) 08/04/24 21:10 Lymph # (Auto) 1.68 K/uL (1.20-3.40) 08/04/24 21:10 [place] # (Auto) 0.92 K/uL (0.11-0.59) H 08/04/24 21:10 Eos # (Auto) 0.06 K/uL (0.00-0.50) 08/04/24 21:10 Baso # (Auto) 0.04 K/uL (0.00-0.20) 08/04/24 21:10 Immature Gran # (Auto) 0.03 K/uL (0.01-0.20) 08/04/24 21:10 PT 11.6 Seconds (9.0-12.0) 08/04/24 21:10 INR 1.1 (0.9-1.1) 08/04/24 21:10 APTT 29 Seconds (21-31) 08/04/24 21:10 PTT Ratio 1.1 08/04/24 21:10 Sodium 136 mmol/L (136-145) 08/04/24 21:10 Potassium 4.5 mmol/L (3.5-5.1) 08/04/24 21:10 Chloride 104 mmol/L (98-107) 08/04/24 21:10 Carbon Dioxide 26 mmol/L (21-32) 08/04/24 21:10 Anion Gap 6 (3-11) 08/04/24 21:10 BUN 27 mg/dl (6-23) H 08/04/24 21:10 Creatinine 1.39 mg/dl (0.6-1.2) H 08/04/24 21:10 Est Cr Clr Drug Dosing 20.5 ml/min 08/04/24 21:10 eGFR 36.73 08/04/24 21:10 BUN/Creatinine Ratio 19.4 (10-20) 08/04/24 21:10 Glucose 114 mg/dl (70-99(Fasting)) H 08/04/24 21:10 Calcium 9.6 mg/dl (8.6-10.3) 08/04/24 21:10 Magnesium 1.7 mg/dl (1.7-2.4) 08/04/24 21:10 Total Bilirubin 0.5 mg/dl (0.2-1.0) 08/04/24 21:10 AST 21 U/L (13-39) 08/04/24 21:10 ALT 14 U/L (7-52) 08/04/24 21:10 Alkaline Phosphatase 91 U/L (34-104) 08/04/24 21:10 Total Creatine Kinase 135 U/L (26-192) 08/04/24 21:10 Troponin I High Sens 9.4 pg/ml (0-14) 08/04/24 21:10 Total Protein 7.4 gm/dl (6.0-8.3) 08/04/24 21:10 Albumin 4.2 gm/dl (3.4-5.0) 08/04/24 21:10 Globulin 3.2 gm/dl (2.5-4.0) 08/04/24 21:10 Albumin/Globulin Ratio 1.3 (0.9-2) 08/04/24 21:10 TSH 5.933 uIu/ml (0.300-4.500) H 08/04/24 21:10 Free T4 0.89 ng/dl (0.61-1.60) 08/04/24 21:10 Urine Color Yellow 08/04/24 21:04 Urine Appearance Clear (Clear) 08/04/24 21:04 Urine pH 7.0 (4.5-7.5) 08/04/24 21:04 Ur Specific [place] 1.011 (1.000-1.030) 08/04/24 21:04 Urine Protein Negative (Negative) 08/04/24 21:04 Urine Glucose (UA) Negative (Negative) 08/04/24 21:04 Urine Ketones Negative (Negative) 08/04/24 21:04 Urine Blood Negative (Negative) 08/04/24 21:04 Urine Nitrite Positive (Negative) A 08/04/24 21:04 Urine Bilirubin Negative (Negative) 08/04/24 21:04 Urine Urobilinogen Negative (Negative) 08/04/24 21:04 Ur Leukocyte Esterase 2+ (Negative) H 08/04/24 21:04 Urine WBC (Auto) 11-20 /hpf (0-5) H 08/04/24 21:04 Urine RBC (Auto) 0-2 /hpf (0-2) 08/04/24 21:04 U Hyaline Cast (Auto) 3-5 /lpf (0-2) H 08/04/24 21:04 U Epithel Cells (Auto) 0-2 /hpf (0-2) 08/04/24 21:04 Urine Bacteria (Auto) 4+ (None Seen) H 08/04/24 21:[address] 08/04/24 20:03 Exam(s): CT C SPINE EXAM: CT Cervical Spine Without Intravenous Contrast CLINICAL HISTORY: Reason for exam: fall. TECHNIQUE: Axial computed tomography images of the cervical spine without intravenous contrast. CTDI is 18.37 mGy and DLP is 342.37 mGy-cm. Automated exposure control was utilized for the study. A dose lowering technique was utilized adhering to the principles of ALARA. COMPARISON: Prior CT cervical spine from February 13, 2024. FINDINGS: Vertebrae: Unremarkable. No acute fracture. Discs/spinal canal/neural foramina: No acute findings. No spinal canal stenosis. Soft tissues: Right carotid stent in place. IMPRESSION: No evidence of acute cervical spine pathology. Electronically signed by: Jessica Gupta MD 08/04/24 22:[address] 08/04/24 20:03 Exam(s): CT HEAD Without Contrast EXAM: CT Head Without Intravenous Contrast CLINICAL HISTORY: Reason for exam: ams. TECHNIQUE: Axial computed tomography images of the head/brain without intravenous contrast. CTDI is 36.18 mGy and DLP is 546.36 mGy-cm. Automated exposure control was utilized for the study. A dose lowering technique was utilized adhering to the principles of ALARA. COMPARISON: Prior brain MRI from May 24, 2024. FINDINGS: Brain: Unremarkable. No hemorrhage. Moderate nonspecific white matter changes. No edema. Ventricles: Mild ventriculomegaly. Bones/joints: Unremarkable. No acute fracture. Soft tissues: Unremarkable. Sinuses: Unremarkable as visualized. No acute sinusitis. Mastoid air cells: Unremarkable as visualized. No mastoid effusion. IMPRESSION: No evidence of acute intracranial pathology. Electronically signed by: Jessica uGpta MD 08/04/24 22:51 PM Code Status & VTE Plan Code Status DNR/DNI VTE Prophylaxis Plan VTE Prophylaxis will be ordered: Yes PG Care Time/CCT Total # of Minutes Spent Total Time Spent with Patient: Total time spent is greater than 50% in coordination of care (as documented) at patient's floor/unit and/or counseling patient: Coding Level of Care Code 03198 INT INP/OBS CARE 3/75MIN Diagnoses JESS (acute kidney injury) N17.9 AMS (altered mental status) R41.82 Altered mental status type: unspecified Acute UTI (urinary tract infection) N39.0 CVA (cerebral vascular accident) I63.9 Anticoagulant long-term use Z79.01 Paroxysmal atrial fibrillation I48.0 (2) AMS (altered mental status) Altered mental status type: unspecified Qualified Code(s): R41.82 - Altered mental status, unspecified
[2024-08-05] MEDS: LEVOTHYROXINE SODIUM 25 MCG TABLET PO SCH (06:42)
[2024-08-05 07:08] LABS: Basophils # (auto) 0.05 K/uL (0.00-0.20); Basophils % (auto) 0.4 %; Hematocrit (blood only) 37.2 % (37.0-47.0); Hemoglobin 12.3 g/dl (12.0-16.0); Immature Granulocytes # (auto) 0.04 K/uL (0.01-0.20); Immature Granulocytes % (auto) 0.3 %; Lymphocytes # (auto) 0.84 K/uL (1.20-3.40); Lymphocytes % (auto) 6.3 %; Mean Corpuscular Hemoglobin 32.2 pg (25.0-34.0); Mean Corpuscular Hgb Conc 33.1 g/dL (32.0-36.0); Mean Corpuscular Volume 97.4 fL (80.0-100.0); Mean Platelet Volume 8.8 fL (9.4-12.4); Monocytes # (auto) 0.99 K/uL (0.11-0.59); Monocytes % (auto) 7.4 %; Neutrophils # (auto) 11.44 K/uL (1.40-6.50); Neutrophils % (auto) 85.6 %; Platelet Count 231 K/uL (130-400); RDW Coefficient of Variation 12.6 % (11.5-14.5); RDW Standard Deviation 44.9 fL (36.4-46.3); Red Blood Count 3.82 M/uL (4.20-5.40); White Blood Count 13.36 K/ul (4.8-10.8)
--- NOTE | 2024-08-05 07:13 | XRay Report ---
XR chest 1V portable HISTORY: 89 years-old Female weakness acute weakness COMPARISON: 05/22/2020 TECHNIQUE: AP view of the chest FINDINGS: Cardiac silhouette is enlarged. Dual lead left subclavian pacer. Possible pulmonary arterial hyperten wendy. No pneumothorax. Probable small pleural effusions with mild left basilar opacities. Bones appea r grossly intact. Cholecystectomy. IMPRESSION: 1. Cardiomegaly with suggestion of pulmonary arterial hypertension. 2. Small pleural effusions with mild left basilar atelectasis versus pneumonia. ACT 112: Negative or not required by law. The above report was generated using voice recognition software. It may contain grammatical, syntax o r spelling errors. Electronically signed by: Faisal Payne M.D. 08/05/2024 7:12 AM
[2024-08-05 07:24] LABS: Albumin Level 3.6 gm/dl (3.4-5.0); Calcium 8.8 mg/dl (8.6-10.3); Creatinine Clr Calc Pharmacy 28.5 ml/min; Phosphorus 3.3 mg/dl (2.5-4.9); Potassium 4.3 mmol/L (3.5-5.1)
[2024-08-05] MEDS: ASPIRIN 81 MG ECTAB PO SCH (09:01)
[2024-08-05] MEDS: CLOPIDOGREL BISULFATE 75 MG TAB PO SCH (09:01)
[2024-08-05] MEDS: cefTRIAXone SODIUM 2,000 MG/50 ML BAG IV SCH (09:01)
[2024-08-05] MEDS: METOPROLOL SUCC 50MG EXT REL TAB PO SCH (09:02)
[2024-08-05] MEDS: APIXABAN 2.5 MG TAB PO SCH (09:02)
--- OUTSIDE RECORDS SUMMARY | 2024-08-05 10:33 | External Medical Summary | Summary of Care ---
Author Name Unknown Organization [facility] Address [address] [place] [address] Phone [phone] Care Team Providers Care Service Center Technician Name Role Phone Twila Denton MD Primary Care Provider [phone] Reason for Visit * Reason Comments NEW PATIENT Here to look at her colostomy ,she has blood drains a lot Encounter Details Date Type Department Care Team (Late st Contact Info) Description 07/13/2024 11:15 AM EDT Office Visit General Surgery, [facility] [address] [place] [address] Tiffanie Hdz MD [address] [place] [address] (HCC)* Allergies Active Allergy Reactions Criticality Noted Date Comments Verapamil High 10/04/2016 Other reaction(s): "THINGS STARTED TO SHUT DOWN-HEART, B/P TILL GOT TO ER". documented as of this encounter (statuses as of 07/15/2024) Medications Medication Sig Dispensed Refills Start Date End Date Status LORAZEPAM 1 MG PO TABS three times daily as needed 06/06/2014 Active AMLODIPINE BESYLATE 5 MG PO TABS 1 TABLET DAILY 06/06/2014 Active OCUVITE PO TABS daily 06/06/2014 Active LEVOTHYROXINE SODIUM 25 MCG PO CAPS 1 CAPSULE DAILY 06/06/2014 Activ e DIGESTIVE ENZYME PO CAPS daily 06/06/2014 Active IMODIUM A-D 2 MG PO TABS 1 TABLET NEEDED 06/06/2014 Active B-12 1000 MCG PO LOZG daily 06/06/2014 Act leena EQL VITAMIN D3 1000 UNITS PO TABS 1 TABLET DAILY 06/06/2014 Active POTASSIUM GLUCONATE 595 MG PO CAPS daily 06/06/2014 Active CLARITIN 10 MG PO CAPS 1 CAPSULE DAILY 06/06/2014 Active NORTRIPTYLINE HCL 10 MG PO CAPSIndications:Mixed headache 3 tabs daily 90 Cap 3 08/24/2014 Active Eliquis 2.5 MG Oral Tablet 12/23/2022 Active Obzimlbxid-SWHM-Aevreu ne 50-325-40 MG Oral Tablet (Fioricet) 12/23/2022 Active dilTIAZem HCl ER 240 MG Oral Capsule Extended Release 24 Hour 1 Capsule. 05/26/2022 Active Metoprolol Succinate ER 200 MG Oral Tablet Extended Release 24 Hour 11/22/2022 Active Pantoprazole Sodium 40 MG Oral Tablet Delayed Release (Protonix) 11/11/2022 Active Aspirin 325 MG Oral Tablet Delayed Release Take 1 Tablet by mouth in the morning. Active Clopidogrel Bisulfate 75 MG Oral Tablet (Plavix) Take 1 Tablet by mouth in the morning. Active Atorvastatin Calcium 40 MG Oral Tablet (Lipitor) Take 1 Tablet by mouth in the morning. Active documented as of this encounter (statuses as of 07/15/2024) Active Problems Problem Noted Date Diagnosed Date Bowel incontinence IBS (irritable bowel syndrome) Colostomy status Hypothyroid Seasonal allergies Hypertension Malabsorption syndrome Anxiety documented as of this encounter (statuses as of 07/15/2024) Immunizations Name Administration Dates Next Due Seasonal Influenza, Quadrivalent Hd (Fluzone Hd) 06/30/2021 documented as of this encounter Social History Tobacco Use Types Packs/Day Years Used Date Smoking Tobacco: Never Smokeless Tobacco: Never Alcohol Use Standard Drinks/Week Comments No 0 (1 standard drink = 0.6 oz pur e alcohol) Utilities Answer Date Recorded Do you have trouble paying y our heating, water, or electric bill? (Adult - for ages 18 years and over) Not on file 03/30/2024 Is your family able to pay t he heat, water, or electric bill? (Household - for ages 0-17 years) Not on file 03/30/2024 Does your family have access to good internet? (Household - for ages 0-17 years) Not on file 03/30/2024 Social Connections Answer Date Recorded How often do you feel lonely or isolated from those around you? (Adult - for ages 18 years and over) Not on file 03/30/2024 Sex and Gender Information Value Date Recorded Sex Assigned at Not on file Gender Identity Not on file Sexual Orientation Not on file Job Start Date Occupation Industry Not on file Not on file Not on file documented as of this encounter Last Filed Vital Signs Vital Sign Reading Time Taken Comments Blood Pressure 144/67 07/13/2024 11:43 AM EDT Pulse 71 07/13/2024 11:43 AM EDT Temperature 36.4 C (97.5 F) 07/13/2024 11:43 AM E DT Respiratory Rate - - Oxygen Saturation - - Inhaled Oxygen Concentration - - Weight 36.3 kg (80 lb) 07/13/2024 11:43 AM EDT Height - - Body Mass Index 15.62 01/12/2023 11:41 AM EDT documented in this encounter Patient Instructions * Patient Instructions* Tiffanie Hdz MD - 07/13/2024 12:26 PM EDT *You should begin taking a fiber supplement, like Metamucil, Benefiber or Konsyl Fiber, 1-2 times daily. Treat this like a daily medication and be consistent. Directions: Mix a heaping spoonful with water in the morning (and at night if you desire). (*Note: the fiber gummies and capsules are not as good as the powder versions). This will help to better regulate the consistency of your stool. If you notice that you become more "gassy" after starting this, first try to increase your water intake. *Make sure you are getting 64 ounces (8 full glasses) of non-caffeinated beverages a day. (for example, water, crystal light, decaf iced tea). Imodium--can take up to 8 tabs per day-- I would start with 2 tabs at night and 2 tabs in the morning and see what happens. Marshmallows, pectin, bananas documented in this encounter Progress Notes * Tiffanie Hdz MD - 07/13/2024 12:02 PM EDT COLORECTAL SURGERY [facility] Lali Rader [id number] 07/13/2024 Cc: loose stools, bleeding at stoma? HPI: Lali Rader is a 89 year old female referred by Self who presents in clinic for Loose stools and bleeding at stoma. The patient is accompanied by her daughter who helps provide some of the history and facilitate theconversation. Essentially, it seems that the patient had a diverting colostomy created about 15 years ago ( for which I do not have records) because of low pelvic floor tone, severe irritable bowel syndrome and symptoms causing loose stool and my guess is a bit of fecal incontinence. When asked why she was here, the patient talks a bit in circles but about loose stools and needing multiple wafer changes each week because as she is changing her bag everything gets all dirty. She also notes that she has blood running down when she changes it or from her stoma but when tries to show me is pointing to things which are dermatologic ( a mole, a bruise, for instance). She notes that she does sometimes have harder stools but I can not tell if this still makes it difficult for her to change her bag or not as she is somewhat perseverative. After a long period of time discussing all of the things she happened to bring up at the end of theconversation that she wondered about reversal which I assured her we will talk about at our next visit. She is on blood thinners. Last Colonoscopy: unknown Review of Systems: Review of Systems Constitutional: Negative for activity change, appetite change, fatigue, fever and unexpected weightchange. HENT: Negative for ear pain and hearing loss. Eyes: Negative for visual disturbance. Respiratory: Negative for chest tightness and shortness of breath. Cardiovascular: Negative for chest pain and palpitations. Gastrointestinal: Positive for diarrhea. Negative for abdominal distention, abdominal pain and analbleeding. Genitourinary: Negative for difficulty urinating. Musculoskeletal: Negative for arthralgias. Hematological: Does not bruise/bleed easily. All other systems reviewed and negative. Past Medical History: Diagnosis Date Anxiety Bowel incontinence Colostomy status ([facility]) Dry eyes Hair loss Hypertension Hypothyroid IBS (irritable bowel syndrome) Malabsorption syndrome Osteoarthritis PE (pulmonary embolism) 2013 started in leg Seasonal allergies Past Surgical History: Procedure Laterality Date COLOSTOMY 2009 EGD, FLEXIBLE, DIAGNOSTIC 04/21/2017 mild stomach irritation/[facility] HIATAL HERNIA REPAIR, LAP W/OUT MESH 2007 PARTIAL REMOVAL OF THYROID LOBE 2011 REMOVAL OF APPENDIX REMOVE CATARACT, INSERT LENS PROSTH 2013 x 2 REMOVE GALLBLADDER REPAIR OF VAGINAL PROLAPSE 1999 TOTAL HYSTERECTOMY 1977 non cancerous Current Outpatient Medications Medication Sig Dispense Refill LORAZEPAM 1 MG PO TABS three times daily as needed AMLODIPINE BESYLATE 5 MG PO TABS 1 TABLET DAILY LEVOTHYROXINE SODIUM 25 MCG PO CAPS 1 CAPSULE DAILY EQL VITAMIN D3 1000 UNITS PO TABS 1 TABLET DAILY POTASSIUM GLUCONATE 595 MG PO CAPS daily Eliquis 2.5 MG Oral Tablet Lmaywywbec-HXGT-Lxapqaua 50-325-40 MG Oral Tablet (Fioricet) dilTIAZem HCl ER 240 MG Oral Capsule Extended Release 24 Hour 1 Capsule. Metoprolol Succinate ER 200 MG Oral Tablet Extended Release 24 Hour Pantoprazole Sodium 40 MG Oral Tablet Delayed Release (Protonix) Aspirin 325 MG Oral Tablet Delayed Release Take 1 Tablet by mouth in the morning. Clopidogrel Bisulfate 75 MG Oral Tablet (Plavix) Take 1 Tablet by mouth in the morning. Atorvastatin Calcium 40 MG Oral Tablet (Lipitor) Take 1 Tablet by mouth in the morning. OCUVITE PO TABS daily DIGESTIVE ENZYME PO CAPS daily (Patient not taking: Reported on 01/12/2023) IMODIUM A-D 2 MG PO TABS 1 TABLET NEEDED (Patient not taking: Reported on 07/13/2024) B-12 1000 MCG PO LOZG daily (Patient not taking: Reported on 07/13/2024) CLARITIN 10 MG PO CAPS 1 CAPSULE DAILY (Patient not taking: Reported on 01/12/2023) NORTRIPTYLINE HCL 10 MG PO CAPS 3 tabs daily (Patient not taking: Reported on 01/12/2023) 90 Cap 3 No current facility-administered medications for this visit. Review of patient's allergies indicates: Allergen Reactions Verapamil Other reaction(s): "THINGS STARTED TO SHUT DOWN-HEART, B/P TILL GOT TO ER". Family History Problem Relation Name Age of Onset Cancer Mother kidney Cancer Father lung Cancer Brother lung? Cancer Brother ? Social History Tobacco Use Smoking status: Never Smokeless tobacco: Never Substance Use Topics Alcohol use: No Drug use: No Physical Examination: BP 144/67 | Pulse 71 | Temp 36.4 C (97.5 F) | Wt 36.3 kg (80 lb) | BMI 15.62 kg/m | BSA 1.24 m Physical Exam Constitutional: General: She is not in acute distress. Appearance: She is well-developed. HENT: Head: Normocephalic and atraumatic. Eyes: Pupils: Pupils are equal, round, and reactive to light. Cardiovascular: Rate and Rhythm: Normal rate. Pulmonary: Effort: Pulmonary effort is normal. No respiratory distress. Abdominal: Palpations: Abdomen is soft. Comments: Small colostomy in the left lower quadrant which is pink and healthy. I am unable to movethe way for us she has no additional supplies but I can not see any evidence of bleeding, granulomas or inflammation of her colostomy. Musculoskeletal: General: Normal range of motion. Cervical back: Normal range of motion. Skin: General: Skin is warm and dry. Findings: No erythema. Neurological: Mental Status: She is alert and oriented to person, place, and time. Labs: NA Radiology: None Assessment: 89 year old female with an unclear history but what I think is fecal incontinence resulting in a colostomy which is now more than a decade old who presents with difficulties with alternating stool habits that seemed to be her primary concern which result in needing more ostomy supplies then she is able to get per month. As mentioned in the HPI at the conclusion of our 30-45 minute visit she mentioned the possibility of reversing her ostomy. Overall I think this would require me to do an anorectal exam which I can donext time but also a CT scan for anatomy and a colonoscopy. I think that based on what I am hearingreversal at her age and for her original indications would be a bad idea. Plan: 1. We talked a lot about adjusting Metamucil and her Imodium 2 taking this 30 minutes prior to meals during the day or 2 tabs at night and 2 tabs in the morning to help thicken her stool. I think if we can get control and get her stool to thicken up she would have less chance of soiling herself. Part of this might be coming from her inability to effectively empty given her age and functional capacity. 2. I told her I would see her back in about a month to see how she is doing with thickening up her stools and we can discuss more the possibility or not of reversing her ostomy. 3. I will have the ostomy nurses reach out to her and/or her daughter to talk more about strategiesfor ostomy care. She may need a letter of medical necessity to increased supplies per month. Tiffanie Hdz MD [address] [facility] [id number] 07/13/2024 (This note was completed using the dictation program Fluency Direct. As such, there may be misspellings, word substitutions, or other variations that should not change the essence of the clinical content of this encounter note. If there is need for further clarification, please direct questions to the provider listed above.) documented in this encounter Nursing Notes * Tennille Rhodes LPN - 07/13/2024 11:47 AM EDT Chief Complaint Patient presents with NEW PATIENT Here to look at her colostomy ,she has blood drains a lot documented in this encounter Plan of Treatment Upcoming Encounters Date Type Department Care Team (Late st Contact Info) Description 08/10/2024 1:00 PM EDT Office Visit General Surgery, [facility] [address] [place] [address] Tiffanie Hdz MD [address] [place] [address] Health Maintenance Due Date Last Done Comments DXA Scan 1937 Depression Screening 1949 Albumin/Creatinine Ratio 1955 DTap/Tdap Vaccines (1 - Tdap) 1956 Zoster Vaccines (1 of 2) 1987 COVID-19 Vaccine (3 - 2023-2 5 season) 2024 01/11/2021, 12/21/2020 Influenza Vaccine (FLU shot) (#1) 2024 06/30/2021, 06/30/2021 TSH 05/27/2025 05/27/2024 Pneumococcal Vaccine: 65+ Years Completed 08/06/2023, 07/21/2019 HPV (Gardasil) Vaccine Aged Out No lo nger eligible based on patient's age to complete this topic Hepatitis B Vaccine Aged Out No longe r eligible based on patient's age to complete this topic MENINGOCOCCAL (MENACTRA/MENVEO) Aged Out No longer eligible b ased on patient's age to complete this topic documented as of this encounter Medical Devices Not on filedocumented as of this encounter Visit Diagnoses Diagnosis Colostomy in place (HCC)- Primary Colostomy status documented in this encounter Care Teams Service Center Technician Relationship Specialty Start Date End Date Twila Denton MD [address] [facility] [place] [id number] PCP - General Family Medicine 04/21/17 documented as of this encounter
--- OUTSIDE RECORDS SUMMARY | 2024-08-05 10:33 | External Medical Summary | Continuity of Care Document ---
Author Name Unknown Organization [facility] [address] Address [address], [place] [id number] Care Team Providers Care Wheel Fitter Name Role Phone CorrieTwila Primary Care Physician [phone] [id number] Date(s): 06/24/24 - 06/24/24 [facility] [address], [address] [place] [address] [phone] Encounter Diagnosis Carotid stenosis, bilateral(Discharge Diagnosis) - 06/24/24 Discharge Disposition: Home or Self Care Attending Physician: ARACELI Arboleda Lynn Allergies, Adverse Reactions, Alerts Substance Criticality Severity Reaction Reaction Severity Status verapamil Confusion Lightheadedness Dizziness Active Assessment and Plan Extracted from: Title:Clinical Document Author:ARACELI Arboleda Lynn Date:06/24/24 [facility] OUTPATIENT NOTE Name: LEXX ROBERSON Patient Number: [id number] : 1935 Date of Service: 06/24/2024 Chief Complaint: _Follow-up after TCAR HPI: _Ms. Yi is an elderly female who presents to Dr. Guerra's vascular surgery clinic today for 2-week follow-up visit after undergoing an uncomplicated right TCAR. Patient states she is doing well. She denies any problems with her right neck incision, or her left groin puncture site. She denies any new symptoms of cerebrovascular insufficiency including amaurosis, unilateral extremity weakness numbness or tingling, difficulty speaking or swallowing, facial droop, sudden onset confusion, other complaints. The only complaint she has at this time is her right hip pain from her hip fracture in the recent past. She is in the office with her daughter today. Current Home Meds: (Last Updated 06/24 14:13) LORazepam (LORazepam 1 mg oral tablet) 0.5 mg PO tid acetaminophen-HYDROcodone ([place] 5 mg-325 mg oral tablet) 1 tab PO q6h PRN: as needed for pain post op pain control apixaban (apixaban 2.5 mg oral tablet) 2.5 mg PO bid aspirin (aspirin 81 mg oral delayed release tablet) 81 mg PO Daily cholecalciferol (Vitamin D3) 5,000 mcg PO Daily clopidogrel (clopidogrel 75 mg oral tablet) 75 mg PO Daily dilTIAZem (dilTIAZem 240 mg/24 hours oral tablet, extended release) 240 mg PO Daily levothyroxine 25 mcg metoprolol (metoprolol succinate 100 mg oral tablet, extended release) 200 mg PO Daily pantoprazole (pantoprazole 40 mg oral delayed release tablet) 40 mg PO Daily potassium chloride (potassium chloride 8 mEq (600 mg) oral capsule, extended release) 16 mEq PO Daily potassium chloride (potassium chloride 8 mEq (600 mg) oral tablet, extended release) Allergies and Sensitivities: verapamil(Dizziness) verapamil(Lightheadedness) verapamil(Confusion) Past Medical History: Problems: Carotid stenosis, bilateral Cervicalgia Left shoulder pain Left elbow pain Right carpal tunnel syndrome Healthcare maintenance Right wrist pain Right hand pain OBJECTIVE Vitals: Last Updated 06/24/24 14:20 Date Temp BP Location Pulse RR SpO2 Pain 06/24/24 0 06/24/24 172/70 Right Arm 60 94 07/10/21 10 Vital Signs are the last 3 documented. No Orthostatic Data Available Height and Weight: Last Updated 02/16/21 13:36 Date BMI Wt(kg) Wt(lb) Method Ht(cm) (ft-in) Method 02/16/21 20.27 45 99 Standing Scale 149 4-10 Heights and Weights are the last 3 documented. Physical Exam Constitutional: In general patient is a thin but healthy-appearing well- nourished well-developed elderly female no distress. She is alert and oriented without any focal deficits. Her right neck supraclavicular incision is healing as expected, with a small suture knot visible at the distal end, which was removed manually today she has a carotid bruit noted. Her left groin puncture site is well-healed. ASSESSMENT: _ PLAN: _ 1 ) _status post right TCAR Patient is overall doing well since her recent TCAR procedure. We would have her return here in another 6 weeks or so for reevaluation with a carotid ultrasound of her stent prior to that office visit. She is agreeable to this plan. Patient and her daughter have no further questions. They are to call with any other questions if they should have them after leaving today. Thank you for letting us participate in the care of this patient. Medications apixaban 2.5 mg oral tablet Start: 06/24/24 2:09:00 PM EDT, 1 tab, PO, bid Start Date: 06/24/24 Status: Ordered aspirin 81 mg oral delayed release tablet Start: 02/16/21 1:37:00 PM EDT, 1 tab, PO, Daily Start Date: 02/16/21 Status: Ordered clopidogrel 75 mg oral tablet Start: 06/24/24 2:08:00 PM EDT, 1 tab, PO, Daily Start Date: 06/24/24 Status: Ordered dilTIAZem 240 mg/24 hours oral tablet, extended release Start: 06/24/24 2:09:00 PM EDT, 1 tab, PO, Daily Start Date: 06/24/24 Status: Ordered levothyroxine Start: 11/29/20 3:15:00 PM EST, 25 mcg = Start Date: 11/29/20 Status: Ordered LORazepam 1 mg oral tablet Start: 11/29/20 3:12:00 PM EST, 0.5 tab, PO, tid Start Date: 11/29/20 Status: Ordered metoprolol succinate 100 mg oral tablet, extended release Start: 06/24/24 2:12:00 PM EDT, 2 tab, PO, Daily Start Date: 06/24/24 Status: Ordered [place] 5 mg-325 mg oral tablet Start: 02/16/21 2:01:00 PM EDT, 1 tab, PO, q6h, Disp# 8 tab, Refills: 0, post op pain control, PRN: as needed for pain, Pharmacy: [facility] Start Date: 02/16/21 Status: Ordered pantoprazole 40 mg oral delayed release tablet Start: 11/29/20 3:13:00 PM EST, 1 tab, PO, Daily Start Date: 11/29/20 Status: Ordered potassium chloride 8 mEq (600 mg) oral capsule, extended release Start: 06/24/24 2:12:00 PM EDT, 2 cap, PO, Daily Start Date: 06/24/24 Status: Ordered potassium chloride 8 mEq (600 mg) oral tablet, extended release Start: 11/29/20 3:12:00 PM EST Start Date: 11/29/20 Status: Ordered Vitamin D3 Start: 07/10/21 10:36:00 AM EDT, 5,000 mcg =, PO, Daily Start Date: 07/10/21 Status: Ordered Mental Status 06/24/24 Barriers to Learning one year None evide nt Mandatory Health Literacy Documentation Yes Health Literacy Communication Barriers N ever Primary Language Australian Problem List Condition Confirmation Course Effective Dates Status Health St atus Informant Carotid stenosis, bilateral Confirmed Active Right carpal tunnel syndrome Confirmed Active Right hand pain Confirmed Active Cervicalgia Confirmed Active Left elbow pain Confirmed Active Right wrist pain Confirmed Active Healthcare maintenance Confirmed Active Left shoulder pain Confirmed Active Diagnosis Diagnosis Type Effective Dates Health Status Cl inical Service Informant Carotid stenosis, bilateral Discharge Diagnosis 06/24/24 Procedures Procedure Date Related Diagnosis Body Site Status Right TCAR 06/09/24 Completed Vital Signs Most recent to oldest [Reference Range]: 1 Heart Rate 60 bpm (06/24/24 2:19 PM) Blood Pressure 172/70mmHg (06/24/24 2:19 PM) Cuff Pulse Pressure 102 mmHg (06/24/24 2:19 PM) BP Location # 1 Right Arm (06/24/24 2:19 PM) Social History Social History Type Response Smoking Status Never smoked cigaret tania Sex Female Sex Representation Female (finding) [facility] Outpt Note * ARACELI Arboleda Lynn: PERFORM Event Display: [facility] Outpt Note Authored Date: [facility] OUTPATIENT NOTE Name: LEXX ROBERSON Patient Number: [id number] : 1935 Date of Service: 06/24/2024 Chief Complaint: _Follow-up after TCAR HPI: _Ms. Yi is an elderly female who presents to Dr. Guerra's vascular surgery clinic today for2-week follow-up visit after undergoing an uncomplicated right TCAR. Patient states she is doing well. She denies any problems with her right neck incision, or her left groin puncture site. She denies any new symptoms of cerebrovascular insufficiency including amaurosis, unilateral extremity weakness numbness or tingling, difficulty speaking or swallowing, facial droop, sudden onset confusion, other complaints. The only complaint she has at this time is her right hip pain from her hip fracture in the recent past. She is in the office with her daughter today. Current Home Meds: (Last Updated 06/24 14:13) LORazepam (LORazepam 1 mg oral tablet) 0.5 mg PO tid acetaminophen-HYDROcodone ([place] 5 mg-325 mg oral tablet) 1 tab PO q6h PRN: as needed for pain postop pain control apixaban (apixaban 2.5 mg oral tablet) 2.5 mg PO bid aspirin (aspirin 81 mg oral delayed release tablet) 81 mg PO Daily cholecalciferol (Vitamin D3) 5,000 mcg PO Daily clopidogrel (clopidogrel 75 mg oral tablet) 75 mg PO Daily dilTIAZem (dilTIAZem 240 mg/24 hours oral tablet, extended release) 240 mg PO Daily levothyroxine 25 mcg metoprolol (metoprolol succinate 100 mg oral tablet, extended release) 200 mg PO Daily pantoprazole (pantoprazole 40 mg oral delayed release tablet) 40 mg PO Daily potassium chloride (potassium chloride 8 mEq (600 mg) oral capsule, extended release) 16 mEq PO Daily potassium chloride (potassium chloride 8 mEq (600 mg) oral tablet, extended release) Allergies and Sensitivities: verapamil(Dizziness) verapamil(Lightheadedness) verapamil(Confusion) Past Medical History: Problems: Carotid stenosis, bilateral Cervicalgia Left shoulder pain Left elbow pain Right carpal tunnel syndrome Healthcare maintenance Right wrist pain Right hand pain OBJECTIVE Vitals: Last Updated 06/24/24 14:20 Date Temp BP Location Pulse RR SpO2 Pain 06/24/24 0 06/24/24 172/70 Right Arm 60 94 07/10/21 10 Vital Signs are the last 3 documented. No Orthostatic Data Available Height and Weight: Last Updated 02/16/21 13:36 Date BMI Wt(kg) Wt(lb) Method Ht(cm) (ft-in) Method 02/16/21 20.27 45 99 Standing Scale 149 4-10 Heights and Weights are the last 3 documented. Physical Exam Constitutional: In general patient is a thin but healthy-appearing well- nourished well-developed elderly female no distress. She is alert and oriented without any focal deficits. Her right neck supraclavicular incision is healing as expected, with a small suture knot visible at the distal end, which was removed manually today she has a carotid bruit noted. Her left groin puncture site is well-healed. ASSESSMENT: _ PLAN: _ 1 ) _status post right TCAR Patient is overall doing well since her recent TCAR procedure. We would have her return here in another 6 weeks or so for reevaluation with a carotid ultrasound of her stent prior to that office visit. She is agreeable to this plan. Patient and her daughter have no further questions. They are to call with any other questions if they should have them after leaving today. Thank you for letting us participate in the care of this patient. Electronic Signature on File CC: Twila Denton MD [address] [place] [address] * CC: Denys Montemayor MD [address] [place] [address] * Electronically Reviewed/Signed by: Judi Arboleda PA-C Author Signature Dt/Tm:06/24/2024 03:00 PM [facility] [place] [id number] Patient Care team information Care Team Personnel Name: MD Corrie, Twila Espana Position: Referring Member Role: Primary Care Provider Address: [address] [place] [address] [place] Name: ARACELI Arboleda Lynn Position: Physician Avionics Test Technician Exempt - Vasc Surg Member Role: Lifetime Relationship Address: [address] [place] [address] [place] Care Team Related Persons Name: AMERICA ROBERSON Name: OMAIRA MCGRATH
[2024-08-05] MEDS: MAGNESIUM OXIDE 400 MG TAB PO ONE (10:34)
--- NOTE | 2024-08-05 12:49 | Hospitalist Progress Note ---
Date of Service August 05, 2024 Assessment & Plan (1) AMS (altered mental status): Plan: Metabolic encephalopathy/mental status changes/agitation Likely secondary to UTI - recent stroke discharged from hospital 05/31/2024 - Given Haldol 5 mg IM x 1 on admission - head CT without acute changes - magnesium 1.7, although likely not contributing to symptoms - no other electrolyte abnormalities - TSH within normal limits given age - stable 08/05, patient only responds with one-word answers on exam, Unable to assess orientation - B12, folate, and B1 level with AM labs - See UTI plan below (2) Acute UTI (urinary tract infection): Plan: - leukocytosis with neutrophil predominance, WBC 13.36 - UA suspicious for UTI, leukocyte esterase, 11-20 WBC, 4+ bacteria - urine culture is pending - Continue ceftriaxone 2 g IV daily (3) JESS (acute kidney injury): Plan: present on admission; resolved Secondary to UTI and possibly dehydration - Creatinine 1.39 on admission -> 1.00 - given 500 mL bolus NSS on admission - continue to promote oral hydration - continue to monitor on daily BMP Hypomagnesia - 1.7 on admission - 400 mg p.o. given 08/05 - Repeat magnesium with a.m. labs (4) CVA (cerebral vascular accident): Plan: Status post CVA/status post TCAR - CVA during admission from 05/22-05/25/2024 - Status post TCAR with right stent on 06/09/2024 - CT head, CT cervical spine negative - continue home Plavix and Eliquis - Aspirin discontinued as per previous vascular notes (to discontinue 30 days after TCAR), discussed with Dr. Guerra 08/05 (5) Paroxysmal atrial fibrillation: Plan: history of paroxysmal a flutter/fib, has cardiac pacemaker - Telemetry showing paced rhythm with HR in 60s; not in A-fib at this time - Continue with home Eliquis - Continue with Cardizem and metoprolol - continue to monitor on telemetry (6) HTN (hypertension): Plan: BP elevated since admission - Given IV fluid bolus on admission - Continue Cardizem and metoprolol - With heart rate on the softer side, can consider addition of additional agent in the AM rather than increasing doses current regimen Plan Chronic stable diagnoses: HLD - Continue home statin, recent lipid panel within normal limits/ slightly low HDL Hypothyroidism - continue levothyroxine, Recent TSH within normal limits given age GERD - continue Protonix VTE ppx: Eliquis Diet: Heart Healthy Code status: DNR/DNI Dispo: Med Surg/ Tele; awaiting urine culture for discharge Admission and Anticipated Discharge Date Admission Date: August 05, 2024 Supervising Physician Co-Signing Physician Notes Physician Fishing Guide Supervision note: I have not personally seen and examined the patient, but discussed and verified the ashley points of the history and physical along with the plan with ROXY Begum with the following exceptions and/or additions: None Subjective Patient seen at bedside, no acute events overnight. Patient only responds with yes, no, or mumbles. Cannot assess orientation as would not give more than a one-word answer. No acute distress. Spoke with patient's daughter, Darcie, on the phone. She stated that as per nursing patient has not been eating much here, the patient has no difficulty eating at home. She did bring her in because she was more confused yesterday. She thinks her mother is upset with her calling the ambulance to be brought in and that is why she is not speaking much, Although possible component of acute confusion with infection. She stated that the patient has been taking a large amount of antidiarrheals recently. She follows up with GI outpatient who said that she can take 8 tablets a day. She is unsure of how much her mother has been taking but stated that she has been taking these because of increased colostomy output. Updated her on patient's condition and all of her questions were answered. Tele: Paced rhythm, HR 60s. Review of Systems Review of Systems: unable to assess given confusion Physical Exam Physical Exam: The patient is awake, unable to asses orientation given confusion, underweight, normocephalic and atraumatic, in no acute distress. Non-toxic appearing. HEENT- EOMI, mucous membranes moist. Hearing grossly intact. Heart-normal S1 and S2. No murmurs, rubs or gallops. Lungs-clear bilaterally, no respiratory distress, no accessory muscle use. Abdomen-normal bowel sounds and soft. No ascites noted. Non-tender. Extremities- no clubbing, cyanosis, or edema. Results & Data Results & Data Vital Signs (Past 12 Hours) Vital Signs Temp Pulse Pulse Pulse Resp BP Pulse Ox 08/05/24 11:59 36.8 C 60 16 178/78 H 97 08/05/24 10:20 60 08/05/24 07:14 60 08/05/24 07:03 36.9 C 61 16 161/81 H 96 08/05/24 06:34 60 157/78 H 08/05/24 06:19 60 14 173/83 H 94 08/05/24 04:16 60 16 179/89 H 95 08/05/24 02:55 94 08/05/24 02:54 08/05/24 02:22 08/05/24 02:21 60 21 176/98 H 95 08/05/24 01:56 62 15 190/84 H 96 08/05/24 01:34 62 62 16 190/84 H 97 Pulse Ox O2 Del Method O2 Del Method 08/05/24 11:59 Room Air 08/05/24 10:20 08/05/24 07:14 08/05/24 07:03 Room Air 08/05/24 06:34 08/05/24 06:19 Room Air 08/05/24 04:16 Room Air 08/05/24 02:55 Room Air 08/05/24 02:54 94 Room Air 08/05/24 02:22 95 Room Air 08/05/24 02:21 Room Air 08/05/24 01:56 Room Air 08/05/24 01:34 Room Air Laboratory Results reviewed CBC, BMP, phosphorus, TSH PG Care Time/CCT Total # of Minutes Spent Total Time Spent with Patient: Total time spent is greater than 50% in coordination of care (as documented) at patient's floor/unit and/or counseling patient: C[place] [address] SUB INP/OBS CARE 3/50MIN Patient Type Established Medical Decision Making Moderate Complexity Diagnoses AMS (altered mental status) R41.82 Altered mental status type: unspecified Acute UTI (urinary tract infection) N39.0 JESS (acute kidney injury) N17.9 CVA (cerebral vascular accident) I63.9 Paroxysmal atrial fibrillation I48.0 HTN (hypertension) I10 (1) AMS (altered mental status) Altered mental status type: unspecified Qualified Code(s): R41.82 - Altered mental status, unspecified
[2024-08-05] MEDS: CHOLECALCIFEROL 125 MCG (5,000 UNITS) TAB PO SCH (22:43)
[2024-08-05] MEDS: ATORVASTATIN 40 MG TAB PO SCH (22:43)
[2024-08-05] MEDS: dilTIAZem HCL 240 MG CAPCR PO SCH (22:43)
[2024-08-05] MEDS: PANTOprazole 40 MG TAB PO SCH (22:44)
[2024-08-05] MEDS: ONDANSETRON INJ 2 MG/ML 2 ML VIAL IV PRN (23:01)
[2024-08-06] MEDS: ACETAMINOPHEN 325 MG TAB PO PRN (02:23)
[2024-08-06 08:52] LABS: Basophils # (auto) 0.04 K/uL (0.00-0.20); Basophils % (auto) 0.4 %; Eosinophils # (auto) 0.02 K/uL (0.00-0.50); Eosinophils % (auto) 0.2 %; Hematocrit (blood only) 33.6 % (37.0-47.0); Immature Granulocytes # (auto) 0.05 K/uL (0.01-0.20); Immature Granulocytes % (auto) 0.5 %; Lymphocytes # (auto) 1.04 K/uL (1.20-3.40); Lymphocytes % (auto) 9.6 %; Mean Corpuscular Hemoglobin 32.7 pg (25.0-34.0); Mean Corpuscular Hgb Conc 32.7 g/dL (32.0-36.0); Mean Platelet Volume 9.2 fL (9.4-12.4); Monocytes # (auto) 0.93 K/uL (0.11-0.59); Monocytes % (auto) 8.5 %; Neutrophils % (auto) 80.8 %; Platelet Count 214 K/uL (130-400); RDW Coefficient of Variation 12.9 % (11.5-14.5); RDW Standard Deviation 47.2 fL (36.4-46.3); Red Blood Count 3.36 M/uL (4.20-5.40); White Blood Count 10.88 K/ul (4.8-10.8)
[2024-08-06 09:10] LABS: Albumin Level 3.2 gm/dl (3.4-5.0); BUN Creatinine Ratio 22.9 (10-20); Calcium 8.4 mg/dl (8.6-10.3); Creatinine Clr Calc Pharmacy 22.7 ml/min; Magnesium 1.6 mg/dl (1.7-2.4); Phosphorus 3.6 mg/dl (2.5-4.9); Potassium 3.9 mmol/L (3.5-5.1)
[2024-08-06 09:30] LABS: Folate (Folic Acid),Ser orPlas 7.57 ng/ml (>5.38)
--- NOTE | 2024-08-06 13:36 | Hospitalist Progress Note ---
Date of Service August 06, 2024 Assessment & Plan (1) AMS (altered mental status): Plan: Metabolic encephalopathy/mental status changes/agitation Likely secondary to UTI - recent stroke discharged from hospital 05/31/2024 - Given Haldol 5 mg IM x 1 on admission - head CT without acute changes - magnesium 1.6, although likely not contributing to symptoms - no other electrolyte abnormalities - TSH within normal limits given age - stable although still confused, oriented to self and place only (oriented x4 at baseline as per daughter) - B12 and folate WNL - B1 pending - See UTI plan below (2) Acute UTI (urinary tract infection): Plan: - leukocytosis with neutrophil predominance, WBC 13.36 - UA suspicious for UTI, leukocyte esterase, 11-20 WBC, 4+ bacteria - urine culture showing proteus mirabilis; sensitivities to follow - Continue ceftriaxone 2 g IV daily (3) JESS (acute kidney injury): Plan: present on admission; resolved Secondary to UTI and possibly dehydration - Creatinine 1.39 on admission -> 1.09 - continue to promote oral hydration - continue to monitor on daily BMP Hypomagnesia - 1.6 - started patient on p.o. supplement BID given continued hypomagnesia (4) CVA (cerebral vascular accident): Plan: Status post CVA/status post TCAR - CVA during admission from 05/22-05/25/2024 - Status post TCAR with right stent on 06/09/2024 - CT head, CT cervical spine negative - continue home Plavix and Eliquis - Aspirin discontinued as per previous vascular notes (to discontinue 30 days after TCAR), discussed with Dr. Guerra 08/05 (5) Paroxysmal atrial fibrillation: Plan: history of paroxysmal a flutter/fib, has cardiac pacemaker - Telemetry showing paced rhythm with HR in 60s; not in A-fib at this time - Continue with home Eliquis - Continue with Cardizem and metoprolol - continue to monitor on telemetry (6) HTN (hypertension): Plan: BP elevated since admission - Given IV fluid bolus on admission - Continue Cardizem and metoprolol - hydralazine prn - With heart rate on the softer side, can consider addition of additional agent in the AM rather than increasing doses current regimen although currently stable Plan Chronic stable diagnoses: HLD - Continue home statin, recent lipid panel within normal limits/ slightly low HDL Hypothyroidism - continue levothyroxine, Recent TSH within normal limits given age GERD - continue Protonix VTE ppx: Eliquis Diet: Heart Healthy Code status: DNR/DNI Dispo: Med Surg/ Tele; awaiting urine culture, PT and OT to evaluate Admission and Anticipated Discharge Date Admission Date: August 05, 2024 Supervising Physician Co-Signing Physician Notes Physician Plant Tour Guide Supervision note: I have not personally seen and examined the patient, but discussed and verified the ashley points of the history and physical along with the plan with ROXY Begum with the following exceptions and/or additions: None Subjective Patient seen at bedside and doing well with no acute events overnight. Patient oriented to self only. She did know she was in the hospital but was unsure of which one. She cannot remember where she lived. She stated that her appetite is decreased, but correlates it to the food being cold on arrival. She denies fevers, shortness of breath, chest pain, dysuria, increase in urinary frequency. She stated that she lives at home alone and her neighbor checks on her frequently. PT and OT to evaluate. Spoke with patient's daughter, Darcie, on the phone. She stated that this is not baseline for her mother. She normally knows where she is and is fully alert and oriented. She stated that when she spoke to her mother on the phone this morning she was saying there was a cat in the room and that she would not eat because the food was cold. She stated that her mother uses a walker at baseline. She lives in a small house that has no steps. It is all 1 floor. She is concerned with her mother coming home due to this confusion. I explained that we would not send her home in an unsafe condition. All questions and concerns were answered. Tele: Pace rhythm, HR 60s. Review of Systems Review of Systems: See HPI Physical Exam Physical Exam: The patient is awake, oriented to self and place, underweight, normocephalic and atraumatic, in no acute distress. Non-toxic appearing. HEENT- EOMI, mucous membranes moist. Hearing grossly intact. Heart-normal S1 and S2. No murmurs, rubs or gallops. Lungs-clear bilaterally, no respiratory distress, no accessory muscle use. Abdomen-normal bowel sounds and soft. No ascites noted. Non-tender. Extremities- no clubbing, cyanosis, or edema. Results & Data Results & Data Vital Signs (Past 12 Hours) Vital Signs Temp Pulse Pulse Resp BP BP Pulse Ox 08/06/24 11:46 36.4 C L 96 H 20 146/84 H 98 08/06/24 07:36 60 08/06/24 07:25 36.8 C 59 L 18 136/69 96 08/06/24 03:32 36.6 C 67 16 146/75 H 92 O2 Del Method 08/06/24 11:46 Room Air 08/06/24 07:36 08/06/24 07:25 Room Air 08/06/24 03:32 Room Air Laboratory Results Reviewed CBC, BMP, B12, folate, magnesium PG Care Time/CCT Total # of Minutes Spent Total Time Spent with Patient: Total time spent is greater than 50% in coordination of care (as documented) at patient's floor/unit and/or counseling patient: Coding Level of Care Code 41953 SUB INP/OBS CARE 3/50MIN Diagnoses AMS (altered mental status) R41.82 Altered mental status type: unspecified Acute UTI (urinary tract infection) N39.0 JESS (acute kidney injury) N17.9 CVA (cerebral vascular accident) I63.9 Paroxysmal atrial fibrillation I48.0 HTN (hypertension) I10 (1) AMS (altered mental status) Altered mental status type: unspecified Qualified Code(s): R41.82 - Altered mental status, unspecified
[2024-08-06] MEDS: MAGNESIUM OXIDE 400 MG TAB PO SCH (15:16)
[2024-08-06] MEDS: hydrALAZINE HCL 20 MG/ML VIAL IV PRN (20:14)
--- NOTE | 2024-08-06 22:33 | Electrocardiogram Report ---
Test Reason : Blood Pressure : */* mmHG Vent. Rate : 68 BPM Atrial Rate : 68 BPM P-R Int : 404 ms QRS Dur : 78 ms QT Int : 414 ms P-R-T Axes : * 17 15 degrees QTcB Int : 440 ms Atrial-paced rhythm with prolonged AV conduction Septal infarct , age undetermined Nonspecific ST abnormality Abnormal ECG When compared with ECG of 22-May-2024 12:41, QRS voltage has decreased ST no longer depressed in Anterior leads T wave inversion no longer evident in Inferior leads T wave inversion no longer evident in Anterior leads Confirmed by Khoa Gold ([id number]) on 08/06/2024 10:33:45 PM Referred By: REFERRED SELF Confirmed By: Khoa Gold
[2024-08-06] MEDS: LORazepam 0.5 MG TAB PO PRN (22:41)
[2024-08-07] MEDS: oxyCODONE HCL IR 5 MG TAB (IMMEDIATE RELEASE) PO PRN (08:48)
[2024-08-07 09:48] LABS: Basophils # (auto) 0.06 K/uL (0.00-0.20); Basophils % (auto) 0.5 %; Eosinophils # (auto) 0.26 K/uL (0.00-0.50); Eosinophils % (auto) 2.4 %; Hematocrit (blood only) 36.6 % (37.0-47.0); Hemoglobin 11.8 g/dl (12.0-16.0); Immature Granulocytes # (auto) 0.04 K/uL (0.01-0.20); Immature Granulocytes % (auto) 0.4 %; Lymphocytes # (auto) 0.97 K/uL (1.20-3.40); Lymphocytes % (auto) 8.8 %; Mean Corpuscular Hemoglobin 32.2 pg (25.0-34.0); Mean Corpuscular Hgb Conc 32.2 g/dL (32.0-36.0); Mean Corpuscular Volume 99.7 fL (80.0-100.0); Monocytes # (auto) 0.84 K/uL (0.11-0.59); Monocytes % (auto) 7.6 %; Neutrophils # (auto) 8.85 K/uL (1.40-6.50); Neutrophils % (auto) 80.3 %; Platelet Count 286 K/uL (130-400); RDW Coefficient of Variation 12.7 % (11.5-14.5); Red Blood Count 3.67 M/uL (4.20-5.40); White Blood Count 11.02 K/ul (4.8-10.8)
[2024-08-07 09:56] LABS: Albumin Level 3.2 gm/dl (3.4-5.0); Bilirubin Direct 0.1 mg/dl (0-0.2); Bilirubin,Total 0.4 mg/dl (0.2-1.0); Total Protein 5.7 gm/dl (6.0-8.3)
[2024-08-07 09:59] LABS: Albumin Level 3.2 gm/dl (3.4-5.0); Calcium 8.3 mg/dl (8.6-10.3); Creatinine Clr Calc Pharmacy 23.9 ml/min; Magnesium 1.4 mg/dl (1.7-2.4); Phosphorus 2.8 mg/dl (2.5-4.9); Potassium 3.5 mmol/L (3.5-5.1)
[2024-08-07 10:04] LABS: Troponin I High Sensitivity 33.3 pg/ml (0-14)
[2024-08-07] MEDS: CYANOCOBALAMIN 1000 MCG/ML VIAL IM SCH (10:28)
--- NOTE | 2024-08-07 10:49 | Cardiology Consultation ---
Date of Consultation August 07, 2024 Assessment & Plan (1) Paroxysmal atrial fibrillation: (2) Tachy-roge syndrome: (3) Pacemaker: (4) SVT (supraventricular tachycardia): Plan 1. SVT: She developed her typical SVT last evening. As noted previously she has a history of typical AVNRT and this was the rhythm developed. It lasted approximately 45 minutes. She then transition to atrial fibrillation with a controlled ventricular rate. No overt symptoms. She has a history of SVT and atrial fibrillation. At this point would seem reasonable simply continue her diltiazem and metoprolol. For more frequent, extended or symptomatic episodes catheter-based therapy could be entertained. 2. Atrial fibrillation: Paroxysmal. Currently in atrial fibrillation. Likely transition due to the development of SVT. No current symptoms. On appropriate systemic anticoagulation. Adequate rate control at this time. 3. Dual-chamber permanent pacemaker placed for tachybradycardia syndrome. Occasional demand pacing noted. Device not interrogated today. Outpatient remote transmission dated 06/14/2024 revealed mostly atrial pacing. Some episodes of atrial fibrillation lasting a couple of hours. Overall burden less than 1%. 4. Tachybradycardia syndrome: Continue metoprolol and diltiazem. Normally functioning dual-chamber permanent pacemaker 5. Abnormal EKG: Ischemic changes on EKG likely rate related. This appears to have resolved with a transition to atrial fibrillation and a slower rate. Mild elevation in cardiac troponin but not concerning. I do not think she requires serial evaluations. If there was any ischemia it was simply demand related. Will monitor her for recurrent tachycardia. 6. Dynamic outflow obstruction: Noted on her echocardiogram obtained earlier this year. Limiting tachycardia and continue her beta-blockade would be the preferred treatment. 7. Elevated troponin: Very mild elevation. Demand related. I think she requires serial evaluation. Treatment is simply supportive. Continue metoprolol and limit tachycardia. History of Present Illness Reason for Consultation: Tachycardia, EKG changes Requesting Physician: Shy Attending Physician: Lenora Cleveland MD History of Present Illness The patient is an 89-year-old woman with a history of tachybradycardia syndrome, SVT and atrial fibrillation who was admitted to the hospital for confusion and mental status changes. It seems that family members realize she had some mental status change and she was brought to the hospital. She was discovered to have a urinary tract infection and treated accordingly. Last evening she developed an episode of tachycardia that was fairly abrupt in nature. EKG obtained at that time revealed a tachycardia with ST segment depressions. No particular intervention was performed as the patient was felt to be asymptomatic. This morning patient claims to be feeling well. She does have an element of confusion but was able to answer questions appropriately. She believes her family members wanted her to come to the hospital for an evaluation but does not seem to be aware of the circumstances surrounding her admission. She does report some sense of palpitations and high heart rates at times. However, she states that these are fairly infrequent and well-tolerated. She did not report any specific symptoms associated with these episodes. She states that she did not sleep very well last evening. She cannot be more clear on the reason. She did not appear to be aware of a high heart rate last evening until she was notified by the nursing staff. She denied any associated dizziness, dyspnea or chest pain. She states that occasionally at home she will get a "tired" feeling around her pacemaker. She claims to be active around her residence without a walker. She claims to have some mild lower extremity edema at times. Allergies Allergy/AdvReac Type Severity Reaction Status Date / Time verapamil AdvReac Severe "THINGS Verified 06/09/24 09:14 STARTED TO SHUT DOWN-HEART, B/P TILL GOT TO ER". aspirin AdvReac Mild GI UPSET, Verified 06/09/24 09:14 TAKES BABY ASA WITHOUT PROB lactose AdvReac Gastrointestinal Verified 06/09/24 09:14 Upset Home Medications Medication Instructions Recorded Confirmed Type levothyroxine 25 mcg tablet 25 mcg PO QAM 07/03/18 06/09/24 History apixaban 2.5 mg tablet (Eliquis) 2.5 mg PO BID 30 days #60 tabs 10/20/21 06/09/24 Rx pantoprazole 20 mg tablet,delayed 40 mg PO QPM gerd 05/27/22 06/09/24 History release (Protonix) [id number] 1 tab PO Q4H PRN Migraine Headache 05/22/24 06/09/24 History 50 mg-325 mg-40 mg tablet (Esgic) cholecalciferol (vitamin D3) 125 125 mcg PO QPM 05/22/24 06/09/24 History mcg (5,000 unit) tablet (Vitamin D3) diltiazem HCl 240 mg 240 mg PO QPM 05/22/24 06/09/24 History capsule,extended release 24 hr (Cardizem CD) metoprolol succinate 200 mg 200 mg PO QAM 05/22/24 06/09/24 History tablet,extended release 24 hr (Toprol XL) potassium chloride 8 mEq 16 meq PO QAM 05/22/24 06/09/24 History capsule,extended release aspirin 81 mg tablet,delayed 81 mg PO QAM #30 tabs 05/25/24 06/09/24 Rx release clopidogrel 75 mg tablet (Plavix) 75 mg PO QAM 06/03/24 06/09/24 History lorazepam 1 mg tablet 0.5 mg PO TID PRN Anxiety 06/03/24 06/09/24 History atorvastatin 40 mg tablet 40 mg PO PM 06/09/24 06/09/24 History oxycodone-acetaminophen 5 mg-325 1 tab PO Q8H PRN pain #7 tabs 06/10/24 Rx mg tablet (Percocet) Patient History Medical History Encounter for pre-operative examination Hx of tachycardia-bradycardia syndrome 02/2022, pacemaker placed Hypothyroidism CVA (cerebral vascular accident) 05/24/24, said she had 2 within 2 weeks of finding, no residual effects, brought to [facility] Anticoagulant long-term use Pacemaker 02/2022, [employer] Atrial fibrillation with rapid ventricular response currently on eliquis; f/u delmy murphy cardio. Hypomagnesemia Dysrhythmia had pacer placed, 02/2022 SVT (supraventricular tachycardia) hx; f/u delmy murphy Hypokalemia Headache resolved History of pulmonary embolism years ago- asymptomatic - incidental finding - treated w/ blood thinners x 6 months, cause? Leukocytosis hx Partial small bowel obstruction Trouble swallowing w/certain foods Seasonal allergies Weight loss hx-30+ lb weight loss in within 6 month perior pt has ongoing problem gaining weight per dtr., since pt's in 2020 Chronic back pain pain to both legs Osteoarthritis Depression Anxiety History of palpitations "skips beats" Hypertension Chronic nausea GERD (gastroesophageal reflux disease) Migraine hx Poor historian interview needs to be done with dtr. Lung nodules previously biopsied - benign Intractable nausea and vomiting resolved Anorexia ongoing for past 3 years Pulmonary hypertension Surgical History History of carpal tunnel surgery of right wrist History of open reduction and internal fixation (ORIF) procedure rt hip, 02/2024 S/P cardiac pacemaker procedure 02/2022, lead replacement 1 day after insertion; f/u delmy haskins History of colonoscopy History of hernia repair History of Lloyd fundoplication Hx of thyroidectomy PARTIAL Hx of bladder repair surgery FOR SUPPORT History of surgery left elbow Hx of cholecystectomy Hx of tonsillectomy S/P ANKIT-BSO HX History of esophagogastroduodenoscopy (EGD) w/ dilatation History of colostomy ~2005 - placed b/c of incontinence History of bronchoscopy Family History Mother Hypertension Cancer Father Cancer Other No family history of adverse response to anesthesia No family history of bleeding disorder Social History Smoking Status: Never smoker Second Hand Exposure: No; Do You Dip or Chew Tobacco: No; Hx Alcohol Use: No Hx Substance Use: No Preferred Language: Hebrew Communication Ability: Effective Dry Sand Molder Required: No Beliefs That Will Affect Care: None marital status: / Current Living Situation: Alone How many Children do You have: 4 Feels Safe at Home: No Is there a partner from a previous relationship who is making you feel unsafe now?: No Assistive Devices: Walker and Wheelchair Review of Systems Review of Systems: Per HPI. Physical Exam Physical Exam: She is alert and oriented x3. Mood affect appear normal. She answered all que stions appropriately. Somewhat confused at times. HEENT: Sclerae are anicteric. Pupils are equal and reactive to light and accommodation. Extraocular movements were intact. Neuro: Cranial nerves intact Lungs: Lungs are clear to auscultation bilaterally. There are no rales wheezes or rhonchi. She has normal respiratory effort without use of accessory muscles. There is normal pulmonary excursion. Cardiac: The rhythm was irregular. S1 and S2 were normal. There are no murmurs on examination. The PMI was not markedly displaced on palpation. Extremities: Patient has bilateral radial pulses that are equal in intensity. There is no evidence cyanosis or clubbing. There was no evidence of significant peripheral edema bilaterally. Skin: There are no rashes noted on examination today. Some ecchymosis around the right maxillary area Results & Data Vital Signs (Past 12 Hours) Vital Signs Temp Pulse Resp BP BP Pulse Ox O2 Del Method 08/07/24 07:36 37.8 C H 101 H 18 135/73 96 Room Air 08/07/24 02:53 37.1 C 104 H 18 116/67 93 Room Air 08/06/24 23:14 37.1 C 18 99 Room Air Laboratory Results Abnormal Lab Results 08/07/24 08/07/24 09:20 09:20 WBC 11.02 H RBC 3.67 L Hgb 11.8 L Hct 36.6 L MCV 99.7 MCH 32.2 MCHC 32.2 RDW Std Deviation 47.0 H RDW Coeff of Hubert 12.7 Plt Count 286 MPV 9.0 L Immature Gran % (Auto) 0.4 Neut % (Auto) 80.3 Lymph % (Auto) 8.8 Noble % (Auto) 7.6 Eos % (Auto) 2.4 Baso % (Auto) 0.5 Neut # (Auto) 8.85 H Lymph # (Auto) 0.97 L Noble # (Auto) 0.84 H Eos # (Auto) 0.26 Baso # (Auto) 0.06 Immature Gran # (Auto) 0.04 Sodium 136 Potassium 3.5 Chloride 103 Carbon Dioxide 24 Anion Gap 9 BUN 22 Creatinine 1.10 Est Cr Clr Drug Dosing 23.9 eGFR 48.63 BUN/Creatinine Ratio 20.0 Glucose 196 H Calcium 8.3 L Phosphorus 2.8 Magnesium 1.4 L Total Bilirubin 0.4 Direct Bilirubin 0.1 AST 18 ALT 9 Alkaline Phosphatase 60 Troponin I High Sens 33.3 H Total Protein 5.7 L Albumin 3.2 L 3.2 L Diagnostic Findings Echocardiogram 05/23/2024: Hyperdynamic left ventricle with ejection fraction greater than 70%. Normal LV wall motion. Mild LVH. Mild dynamic left ventricular outflow tract obstruction with peak velocity of 1.8 m/s. Moderate TR. PG Care Time/CCT Total # of Minutes Spent Total Time Spent with Patient: Total time spent is greater than 50% in coordination of care (as documented) at patient's floor/unit and/or counseling patient: Coding Level of Care Code 48938 INT INP/OBS CARE Diagnoses Paroxysmal atrial fibrillation I48.0 Tachy-roge syndrome I49.5 Pacemaker Z95.0 SVT (supraventricular tachycardia) I47.1
--- NOTE | 2024-08-07 11:54 | Electrocardiogram Report ---
Test Reason : Blood Pressure : */* mmHG Vent. Rate : 137 BPM Atrial Rate : 137 BPM P-R Int : 216 ms QRS Dur : 66 ms QT Int : 206 ms P-R-T Axes : 43 -10 230 degrees QTcB Int : 311 ms Supraventricular tachycardia Marked ST abnormality, possible inferior subendocardial injury Marked ST abnormality, possible anterolateral subendocardial injury Abnormal ECG When compared with ECG of 04-Aug-2024 19:59, Supraventricular tachycardia has replaced Electronic atrial pacemaker Vent. rate has increased by [address] now depressed in Anterolateral leads T wave inversion now evident in Inferior leads T wave inversion now evident in Lateral leads Confirmed by Greg Case ([id number] on 08/07/2024 11:54:01 AM Referred By: REFERRED SELF Confirmed By: Greg Case
--- NOTE | 2024-08-07 12:24 | Hospitalist Progress Note ---
Date of Service August 07, 2024 Assessment & Plan (1) AMS (altered mental status): Plan: Metabolic encephalopathy/mental status changes/agitation Secondary to UTI Resolved - recent stroke discharged from hospital 05/31/2024 - Given Haldol 5 mg IM x 1 on admission - head CT without acute changes - magnesium 1.4, although likely not contributing to symptoms - no other electrolyte abnormalities - TSH within normal limits given age - stable, oriented x4 - B12 low and folate WNL - B1 pending - See UTI plan below (2) Acute UTI (urinary tract infection): Plan: - leukocytosis with neutrophil predominance improving; WBC 13.36 -> 11.02 - 1 record of elevated temperature 08/07, otherwise afebrile - UA suspicious for UTI, leukocyte esterase, 11-20 WBC, 4+ bacteria - urine culture showing proteus mirabilis; sensitivities show no resistance - Ceftriaxone 2 g IV -> Cefdinir 300 daily (last dose 08/11 PM), renally dosed given CrCl 23.9 (3) JESS (acute kidney injury): Plan: present on admission; resolved Secondary to UTI and possibly dehydration - Creatinine 1.39 on admission -> 1..10 - continue to promote oral hydration - continue to monitor on daily BMP Hypomagnesia - 1.4 - was on oral supplement, possibly contributing to abdominal pain; discontinue PO supplement 08/07 - 2 G IV mg 08/07 - repeat mg in AM Hypokalemia - 3.5 - 40 meq PO ordered - BMP in AM (4) Paroxysmal atrial fibrillation: Plan: history of paroxysmal a flutter/fib, SVT, and LVOT, has cardiac pacemaker asymptomatic - episode of SVT overnight 08/06, converted into A fib - Ischemic changes on EKG, resolved on repeat with transition into A fib - troponin 33.3; will continue to trend - likely due to demand - currently mildly tachycardic - Cardiology consulted 08/07; continue with current medical management - Continue with home Eliquis - Continue with Cardizem and metoprolol - continue to monitor on telemetry (5) CVA (cerebral vascular accident): Plan: Status post CVA/status post TCAR - CVA during admission from 05/22-05/25/2024 - Status post TCAR with right stent on 06/09/2024 - CT head, CT cervical spine negative - continue home Plavix and Eliquis - Aspirin discontinued as per previous vascular notes (to discontinue 30 days after TCAR), discussed with Dr. Guerra 08/05 (6) HTN (hypertension): Plan: elevated blood pressure overnight 08/06; IV hydralazine given which then made pressures too low - discontinue hydralazine prn - Continue Cardizem and metoprolol (7) B12 deficiency anemia: Plan: - B12 272 - cyanocobalamin IM x 3 doses - will discharge on PO supplement Plan Chronic stable diagnoses: HLD - Continue home statin, recent lipid panel within normal limits/ slightly low HDL Hypothyroidism - continue levothyroxine, Recent TSH within normal limits given age GERD - continue Protonix VTE ppx: Eliquis Diet: Heart Healthy Code status: DNR/DNI Dispo: Med Surg/ Tele; PT and OT to evaluate Admission and Anticipated Discharge Date Admission Date: August 05, 2024 Supervising Physician Co-Signing Physician Notes Physician Coil Builder Supervision note: I have not personally seen and examined the patient, but discussed and verified the ashley points of the history and physical along with the plan with ROXY Begum with the following exceptions and/or additions: None Subjective Patient seen at bedside, doing well. She had elevated blood pressure and tachycardia overnight. She was given hydralazine which seemed to drop her pressures too low. She also had an abnormal EKG and mildly elevated troponin. Cardiology consulted; see their note in the chart. Upon examination patient stated that she had abdominal pain this morning that has since resolved. She denies chest pain, shortness of breath, dizziness. She was fully alert and or iented today. She seems to be doing well. PT and OT to evaluate for discharge. Updated patient's daughter, Darcie, via the phone. Questions and concerns answered. Hopeful for discharge tomorrow if PT and OT evaluate. Tele: A fib, Paced rhythm, HR 70s. Review of Systems Review of Systems: See HPI Physical Exam Physical Exam: The patient is awake, oriented x4, underweight, normocephalic and atraumatic, in no acute distress. Non-toxic appearing. HEENT- EOMI, mucous membranes moist. Hearing grossly intact. Heart-normal S1 and S2. No murmurs, rubs or gallops. Lungs-clear bilaterally, no respiratory distress, no accessory muscle use. Abdomen-normal bowel sounds and soft. No ascites noted. Non-tender. Colostomy with loose brown output. Extremities- no clubbing, cyanosis, or edema. Results & Data Results & Data Vital Signs (Past 12 Hours) Vital Signs Temp Pulse Pulse Resp BP BP Pulse Ox 08/07/24 07:36 37.8 C H 101 H 18 135/73 96 08/07/24 05:50 88 08/07/24 02:53 37.1 C 104 H 18 116/67 93 O2 Del Method 08/07/24 07:36 Room Air 08/07/24 05:50 08/07/24 02:53 Room Air Laboratory Results reviewed CBC, BMP, troponin, magnesium PG Care Time/CCT Total # of Minutes Spent Total Time Spent with Patient: Total time spent is greater than 50% in coordination of care (as documented) at patient's floor/unit and/or counseling patient: Coding Level of Care Code 46893 SUB INP/OBS CARE 3/50MIN Diagnoses AMS (altered mental status) R41.82 Altered mental status type: unspecified Acute UTI (urinary tract infection) N39.0 JESS (acute kidney injury) N17.9 Paroxysmal atrial fibrillation I48.0 CVA (cerebral vascular accident) I63.9 HTN (hypertension) I10 B12 deficiency anemia D51.9 (1) AMS (altered mental status) Altered mental status type: unspecified Qualified Code(s): R41.82 - Altered mental status, unspecified
[2024-08-07] MEDS: POTASSIUM CHLORIDE CRTAB 20 MEQ TABCR PO STA (14:44)
[2024-08-07] MEDS: MAGNESIUM SULFATE / D5W 1 GM/100 ML BAG IV SCH (14:45)
[2024-08-08 07:08] VITALS: PULSE 60
--- NOTE | 2024-08-08 07:28 | Electrocardiogram Report ---
Test Reason : Blood Pressure : */* mmHG Vent. Rate : 93 BPM Atrial Rate : 98 BPM P-R Int : * ms QRS Dur : 72 ms QT Int : 422 ms P-R-T Axes : * 34 263 degrees QTcB Int : 524 ms Atrial fibrillation Prolonged QT Abnormal ECG When compared with ECG of 06-Aug-2024 23:01, Atrial fibrillation has replaced Sinus rhythm ST no longer depressed in Anterolateral leads T wave inversion less evident in Lateral leads Confirmed by Greg Case ([id number] on 08/08/2024 7:28:15 AM Referred By: REFERRED SELF Confirmed By: Greg Case
[2024-08-08] MEDS: CEFDINIR 300 MG CAP PO SCH (07:49)
[2024-08-08 07:57] LABS: Hematocrit (blood only) 31.4 % (37.0-47.0); Hemoglobin 10.5 g/dl (12.0-16.0); Mean Corpuscular Hemoglobin 32.5 pg (25.0-34.0); Mean Corpuscular Hgb Conc 33.4 g/dL (32.0-36.0); Mean Corpuscular Volume 97.2 fL (80.0-100.0); Mean Platelet Volume 8.9 fL (9.4-12.4); Platelet Count 231 K/uL (130-400); RDW Coefficient of Variation 12.7 % (11.5-14.5); RDW Standard Deviation 45.2 fL (36.4-46.3); Red Blood Count 3.23 M/uL (4.20-5.40); White Blood Count 7.63 K/ul (4.8-10.8)
[2024-08-08] MEDS ORDERED: AMOXICILLIN/CLAVULANATE 500 MG TAB PO SCH (08:00)
[2024-08-08 08:09] LABS: BUN Creatinine Ratio 21.9 (10-20); Calcium 8.2 mg/dl (8.6-10.3); Creatinine Clr Calc Pharmacy 28.7 ml/min; Magnesium 1.9 mg/dl (1.7-2.4)
--- NOTE | 2024-08-08 10:18 | Discharge Summary ---
Discharge Summary Date of Service August 08, 2024 Principal Dx & Hospital Course #1 = Principal Diagnosis (1) AMS (altered mental status): Metabolic encephalopathy/mental status changes/agitation Secondary to UTI Resolved - stable, oriented x4 - recent stroke discharged from hospital 05/31/2024 - Given Haldol 5 mg IM x 1 on admission - head CT without acute changes - magnesium low and repleted, although likely not contributing to symptoms - no other electrolyte abnormalities - TSH and folate WNL, B12 low - B1 pending on discharge - See UTI plan below (2) Acute UTI (urinary tract infection): - leukocytosis resolved - 1 record of elevated temperature 08/07, otherwise afebrile - UA suspicious for UTI, leukocyte esterase, 11-20 WBC, 4+ bacteria - urine culture showing proteus mirabilis; sensitivities show no resistance - Ceftriaxone 2 g IV -> Cefdinir 300 daily (last dose 08/11), renally dosed given CrCl 23.9 (3) JESS (acute kidney injury): present on admission; resolved Secondary to UTI and possibly dehydration - Creatinine 1.39 on admission -> 0.96 - continue to promote oral hydration Hypomagnesia - Repleted with 2G IV 08/07; resolved Hypokalemia - repleted and resolved (4) Paroxysmal atrial fibrillation: history of paroxysmal a flutter/fib, SVT, and LVOT, has cardiac pacemaker - episode of SVT overnight 08/06 -> converted into A fib -> paced rhythm 08/07 - Ischemic changes on EKG, resolved on repeat with transition into A fib - troponin mildly elevated; trended downward - likely due to demand - Cardiology consulted 08/07; continue with current medical management - Continue with home Eliquis - Continue with Cardizem and metoprolol (5) CVA (cerebral vascular accident): Status post CVA/status post TCAR - CVA during admission from 05/22-05/25/2024 - Status post TCAR with right stent on 06/09/2024 - CT head, CT cervical spine negative - continue home Plavix and Eliquis - Aspirin discontinued as per previous vascular notes (to discontinue 30 days after TCAR), discussed with Dr. Guerra 08/05 (6) HTN (hypertension): elevated blood pressure overnight 08/06; IV hydralazine given which then made pressures too low - Continue home regimen - Cardizem and metoprolol (7) B12 deficiency anemia: - B12 272 - cyanocobalamin IM x 2 doses - will discharge on PO supplement Plan Chronic stable diagnoses: HLD - Continue home statin, recent lipid panel within normal limits/ slightly low HDL Hypothyroidism - continue levothyroxine, Recent TSH within normal limits given age GERD - continue Protonix Tele: Transition from a fib into paced rhythm 08/07; currently paced in 60s VTE ppx: Eliquis Diet: Heart Healthy Code status: DNR/DNI Dispo: discharged home with [facility] to evaluate patient within 48 hours after discharge PT and OT recommending SNF; Patient declined SNF placement. Patient and her daughter opted for home health. PT and OT recommending 24/7 care if not going to SNF facility. Discussed with patient and her daughter risk of going home versus SNF; she will be at high risk for falls and the complications from that. Patient's daughters stated that she is unable to provide 24/7 care as she does not live with her mother. She and the neighbor check in on the patient frequently, she will have the home health, and she lives in a very small one- story house. She feels that her mother will be safe at home and uses a walker to get around as needed. Notes For Next Care Provider Medication Changes From Visit Discontinue aspirin B12 supplement Take cefdinir 300 mg daily x 3 more days Admission HPI Per Admitting Provider The patient is an 89-year-old female with a past medical history including urinary tract infection, CVA during admission 05/22-05/25/2024,, status post right CEA on 06/09/2024, severe malnutrition, C4 and C5 cervical fractures, long-term anticoagulant use, tachybradycardia syndrome, presence of pacemaker, PAF, anxiety with depression, and hypertension. The patient had called a neighbor, to take her to her family's house, when she arrived there she was noted to be confused, and EMS was called to bring the patient to [facility] for assessment. Admission Exam Per Admitting Provider The patient is awake, confused and mildly agitated, normocephalic and atraumatic, lying in bed and in no acute distress. HEENT--PERRL, EOMI, mucous membranes and oropharynx mildly dry. Neck--supple. No JVD. No bruits. Thyroid normal, trachea midline, no adenopathy. Heart--normal S1 and S2. No murmurs, rubs or gallops. Lungs--clear bilaterally, no respiratory distress, no accessory muscle use. Abdomen--normal bowel sounds and soft. Nontender. Nondistended, no hernias or masses, no organomegaly. Extremities--no cyanosis or clubbing. No edema. Dermatologic--normal skin turgor, normal color, no abnormal lymph nodes, no rash. Neurologic--cranial nerves II through XII grossly intact. Rheumatologic--normal range of motion. Psychiatric--mildly agitated Discharge Exam The patient is awake, oriented x4, underweight, normocephalic and atraumatic, in no acute distress. Non-toxic appearing. HEENT- EOMI, mucous membranes moist. Hearing grossly intact. Heart-normal S1 and S2. No murmurs, rubs or gallops. Lungs-clear bilaterally, no respiratory distress, no accessory muscle use. Abdomen-normal bowel sounds and soft. No ascites noted. Non-tender. Colostomy with loose brown output. Extremities- no clubbing, cyanosis, or edema. Discharge Plan Discharge Items Patient Disposition: Home - Home Health Services Reason For Visit: JESS, UTI, METABOLIC ENCEPHALOPATHY Discharge Diagnosis: 1. Urinary tract infection 2. Paroxysmal atrial fibrillation Condition on Discharge: Good Activity: As commented below Activity Comment: Increase as tolerated with home health PT Non-emergency contact: Primary Care Provider and [employer] Supervisor Call non-emergency contact if: you have any medication questions and your symptoms worsen Follow-up/Referrals: Twila Denton MD [Primary Care Provider] - (Follow up in 1-2 weeks ) Diet: Regular Addtl Attending Provider Instructions: You were hospitalized for confusion which we found to be caused by a urinary tract infection. You are to take a total of 7 days of antibiotics. You were given 4 days of antibiotics during your hospital stay. I have sent cefdinir to your pharmacy that you will take for the next 3 days, your last dose will be 08/11. Please take the full course of antibiotics to prevent further infection with antibiotic resistance. You were found to have an acute kidney injury during your hospital stay which was likely caused by your urinary tract infection. This has resolved with treating the UTI and good oral hydration. I recommend that you continue to stay hydrated at home. During your hospital stay you had an episode of SVT that transitioned into A-fib for about 24 hours. You are currently not in A-fib and have a paced rhythm. Cardiology saw you and determined that you can continue with your current medication regimen and already planned follow-up in October. You are also found to have a low B12 level during your hospital stay. I recommend that you take a B12 supplement at home. You can purchase this [id number]. Physical therapy and Occupational Therapy saw you during your hospital stay. As discussed with both you and your daughter, they recommended short-term rehab. You have declined this option and opted for home health with [facility]. They will see you within 48 hours of being discharged. It is recommended that you follow up with your PCP in 1-2 weeks after being discharged. You no longer need to take aspirin as it has been over 30 days since your carotid surgery as per my discussion with Dr. Guerra.You should continue on your Plavix and Eliquis Pending Studies at Discharge: Yes Studies:: B1 level Stand-Alone Forms: My [facility] Medications and DC Order Prescriptions: New cefdinir 300 mg Capsule 300 mg PO DAILY Qty: 3 0RF cyanocobalamin (vitamin B-12) 1,000 mcg capsule 1,000 mcg PO DAILY Qty: 30 0RF Continued levothyroxine 25 mcg Tablet 25 mcg PO QAM Protonix 20 mg tablet,delayed release (DR/EC) 40 mg PO QPM Eliquis 2.5 mg Tablet 2.5 mg PO BID 30 Days Qty: 60 3RF Rx Instructions: PER PT'S DAUGHTER "I SAW HER TAKE AM MEDS ON 04/19/24, HAVE NO IDEA WHEN SHE TOOK THEM BEFORE OR SINCE". potassium chloride 8 mEq capsule, extended release 16 meq PO QAM Rx Instructions: PER PT'S DAUGHTER "I SAW HER TAKE AM MEDS ON 04/19/24, HAVE NO IDEA WHEN SHE TOOK THEM BEFORE OR SINCE". [id number] [Esgic] 50-325-40 mg tablet 1 tab PO Q4H MDD 6 TABS/24 HOURS PRN (Reason: Migraine Headache) Rx Instructions: PER PT'S DAUGHTER "I SAW HER TAKE AM MEDS ON 04/19/24, HAVE NO IDEA WHEN SHE TOOK THEM BEFORE OR SINCE". cholecalciferol (vitamin D3) [Vitamin D3] 125 mcg (5,000 unit) Tablet 125 mcg PO QPM Rx Instructions: PER PT'S DAUGHTER "I SAW HER TAKE AM MEDS ON 04/19/24, HAVE NO IDEA WHEN SHE TOOK THEM BEFORE OR SINCE". diltiazem HCl [Cardizem CD] 240 mg capsule,extended release 24hr 240 mg PO QPM Rx Instructions: PER PT'S DAUGHTER "I SAW HER TAKE AM MEDS ON 04/19/24, HAVE NO IDEA WHEN SHE TOOK THEM BEFORE OR SINCE". metoprolol succinate [Toprol XL] 200 mg tablet extended release 24 hr 200 mg PO QAM clopidogrel [Plavix] 75 mg tablet 75 mg PO QAM lorazepam 1 mg tablet 0.5 mg PO TID PRN (Reason: Anxiety) atorvastatin 40 mg tablet 40 mg PO PM oxycodone-acetaminophen [Percocet] 5-325 mg tablet 1 tab PO Q8H PRN (Reason: pain) Qty: 7 0RF Discontinued aspirin 81 mg Tablet,Delayed Release (Dr/Ec) 81 mg PO QAM Qty: 30 0RF Discharge Orders: Discharge Order (Routine); Ordered 08/08/24 Ordered By: Lenora Garner/Other Patient Handouts: Urinary Tract Infections in Women Admission Data Admit Date/Time: 08/05/24 00:33 Attending Provider: Lenora Cleveland Admit Provider: Juventino Deluna Primary Care Provider: Twila Denton Other Providers: Juventino Deluna; Greg Case Other Interventions: Discharge Summary Assessment (RN) Last Done: 08/08/24 12:23 Hospital Stay Data Consultations 08/05/24 00:02 ED Decision to Admit Stat 08/07/24 09:35 Consult Cardiology Routine Diagnostic Imagining Performed Chest xray 08/04/24 20:03 CT cervical spine wo con Stat CT head/brain wo con Stat Pending Results Patient Have Any Pending Studies at Discharge: Yes (B1) Discharge Instructions Given to Patient (Per Discharging Provider) You were hospitalized for confusion which we found to be caused by a urinary tract infection. You are to take a total of 7 days of antibiotics. You were given 4 days of antibiotics during your hospital stay. I have sent cefdinir to your pharmacy that you will take for the next 3 days, your last dose will be 08/11. Please take the full course of antibiotics to prevent further infection with antibiotic resistance. You were found to have an acute kidney injury during your hospital stay which was likely caused by your urinary tract infection. This has resolved with treating the UTI and good oral hydration. I recommend that you continue to stay hydrated at home. During your hospital stay you had an episode of SVT that transitioned into A-fib for about 24 hours. You are currently not in A-fib and have a paced rhythm. Cardiology saw you and determined that you can continue with your current medication regimen and already planned follow-up in October. You are also found to have a low B12 level during your hospital stay. I recommend that you take a B12 supplement at home. You can purchase this [id number]. Physical therapy and Occupational Therapy saw you during your hospital stay. As discussed with both you and your daughter, they recommended short-term rehab. You have declined this option and opted for home health with [facility]. They will see you within 48 hours of being discharged. It is recommended that you follow up with your PCP in 1-2 weeks after being discharged. You no longer need to take aspirin as it has been over 30 days since your carotid surgery as per my discussion with Dr. Guerra.You should continue on your Plavix and Eliquis Supervising Physician Co-Signing Physician Notes PA Supervision Note: I personally saw and examined the patient. I verified all ashley points and agree with ROXY Begum with the following exceptions and/or additions: S-patient feels cold and complains about the food not being hot enough. She is anxious to go home. Denies pain anywhere. O- Vitals reviewed Gen: AAOx2, NAD HEENT: Anicteric sclerae CV: RRR no mgr nl S1S2 Pulm: CTAB no wcr Abd: +BS soft NT ND Ext: No edema CBC, BMP reviewed A/M-26-fqrt-old female here with acute metabolic encephalopathy secondary to UTI. Much improved, stable for discharge with oral antibiotics to finish course. Recommended rehab on discharge but patient and her daughter prefer to go home with home health Total Time Total Time Spent Total Time Spent (In Minutes): 35 mins Total Time Includes: Examination of the Patient, Discharge Planning, Medication Reconciliation and Other (Discussion with family and case management ) Coding Level of Care Code 87170 INP/OBS DISCH >30 MIN Diagnoses AMS (altered mental status) R41.82 Altered mental status type: unspecified Acute UTI (urinary tract infection) N39.0 JESS (acute kidney injury) N17.9 Paroxysmal atrial fibrillation I48.0 CVA (cerebral vascular accident) I63.9 HTN (hypertension) I10 B12 deficiency anemia D51.9
[2024-08-08 11:55] VITALS: RESP 20; TEMP 98.1; O2SAT 95
[2024-08-08 12:24] VITALS: BP 108/75
== END 2024-08-08 14:46 | disposition home health service (06) | DRG 689 ==
LOC: ED 19:52 → SUATTDRO 08-05 00:33 → EDINP 08-05 00:33 → 2N 08-05 08:22